=== PATIENT | female | born 1970 | race Caucasian/White ===

== ENCOUNTER 2022-10-29 11:32 | Emergency (ER) | payer OTHER ==
[2022-10-29 11:46] VITALS: TEMP 97.5
[2022-10-29] MEDS ORDERED: SODIUM CHLORIDE 0.9% 1,000 ML IV STA (11:59)
[2022-10-29] MEDS ORDERED: KETOROLAC 15 MG/ML 1 ML VIAL IVP STA (11:59)
--- NOTE | 2022-10-29 12:06 | ED ---
General Adult HPI - General Chief complaint: Upper Respiratory Infection Stated complaint: Dizziness, swollen glands Time Seen by Provider: 10/29/22 11:49 Source: patient, RN notes reviewed, old records reviewed Mode of arrival: ambulatory Limitations: no limitations - History of Present Illness Initial comments: Well appearing 52-year-old female presents to the emergency room with multiple complaints. Sent from urgent care for evaluation of headache, dizziness, sore throat, left lower abdominal pain and swollen axillary and cervical lymph nodes. Patient denies any fevers. States symptoms started 3 days ago. No sick contacts. No nausea vomiting or diarrhea. States has a history of migraine headaches, hypertension, diabetes, fibromyalgia. Surgical history of cholecystectomy and appendectomy. -: days(s) (3) Location: abdomen (left lower) Radiation: non-radiation Severity scale (1-10): 8 Consistency: constant Improves with: none Associated Symptoms: headaches, other (Sore throat, neck pain, dizziness) Treatments Prior to Arrival: other (Sent by urgent care) - Related Data Previous Rx's Medication Instructions Recorded Cephalexin [Keflex] 500 mg PO BID 7 Days #14 cap 10/29/22 Allergies Allergy/AdvReac Type Severity Reaction Status Date / Time trimethobenzamide Allergy Rash/Hives Verified 10/29/22 11:45 [From Tigan] vancomycin Allergy Rash/Hives Verified 10/29/22 11:46 Review of Systems ROS Statement: Those systems with pertinent positive or pertinent negative responses have been documented in the HPI. ROS Other: All systems not noted in ROS Statement are negative. Past Medical History Past Medical History: CVA/TIA, Diabetes Mellitus, Hyperlipidemia, Hypertension Additional Past Medical History / Comment(s): fibomyalgia History of Any Multi-Drug Resistant Organisms: None Reported Past Surgical History: Appendectomy, Cholecystectomy, Hysterectomy, Orthopedic Surgery Past Psychological History: No Psychological Hx Reported Smoking Status: Never smoker Past Alcohol Use History: None Reported Past Drug Use History: None Reported General Exam Limitations: no limitations General appearance: alert, in no apparent distress Head exam: Present: atraumatic Eye exam: Absent: scleral icterus, conjunctival injection, periorbital swelling Neck exam: Present: tenderness, full ROM. Absent: meningismus, lymphadenopathy, thyromegaly Respiratory exam: Present: normal lung sounds bilaterally. Absent: respiratory distress, wheezes, rales, rhonchi, stridor, chest wall tenderness, accessory muscle use Cardiovascular Exam: Present: regular rate, normal heart sounds GI/Abdominal exam: Present: soft, tenderness (Left lower quadrant). Absent: distended, rigid Extremities exam: Present: normal capillary refill. Absent: pedal edema Back exam: Absent: tenderness, CVA tenderness (R), CVA tenderness (L), rash noted Neurological exam: Present: alert, oriented X3 Psychiatric exam: Present: normal affect, normal mood Skin exam: Present: warm, dry, normal color. Absent: cyanosis, diaphoretic, pallor Course Vital Signs 10/29/22 11:40 Temperature 97.5 F L Pulse Rate 95 Respiratory 16 Rate Blood Pressure 136/83 O2 Sat by Pulse 100 Oximetry Medical Decision Making - Medical Decision Making Patient presents with multiple complaints. Symptoms started 3 days ago with headache, sore throat, dizziness and lower abdominal pain. She does have history of hypertension, diabetes, diverticulitis and fibromyalgia. Surgical history of hysterectomy, appendectomy and cholecystectomy. On arrival she is afebrile, vital signs are stable oxygen saturation 100%. CBC is unremarkable. Blood glucose levels 140, patient is diabetic. Urinalysis shows small blood and leukocyte esterase, no nitrates, occasional bacteria, 7 squamous cells. Patient is complaining of lower abdominal pain and therefore s he will be treated for UTI. CT abdomen and pelvis interpreted by me shows no evidence of free air. No evidence of obstruction. Radiologist's interpretation surgically absent gallbladder. No evidence of hydronephrosis or renal calculi. Surgically absent uterus. Postsurgical changes from appendectomy. Scattered diverticula without evidence of diverticulitis. Mild amount of stool throughout the colon with no evidence of bowel obstruction. No pneumoperitoneum. No acute abdominal process. Heterophile, influenza A and B, RSV and coronavirus all negative. This is likely a viral illness however she will also be treated for the urinary tract infection. She was directed to follow up with her primary care doctor within the next week. Return to the emergency room with any new or concerning symptoms. Patient is agreeable to this plan of care. Case discussed with Dr. Dubose. - Lab Data Result diagrams: 10/29/22 12:44 10/29/22 12:44 Lab Results 10/29/22 10/29/22 10/29/22 Range/Units 12:44 12:44 12:44 WBC 4.4 (3.8-10.6) k/uL RBC 4.35 (3.80-5.40) m/uL Hgb 12.8 (11.4-16.0) gm/dL Hct 37.7 (34.0-46.0) % MCV 86.7 (80.0-100.0) fL MCH 29.4 (25.0-35.0) pg MCHC 33.9 (31.0-37.0) g/dL RDW 12.6 (11.5-15.5) % Plt Count 214 (150-450) k/uL MPV 8.0 Neutrophils % 67 % Lymphocytes % 25 % Monocytes % 4 % Eosinophils % 2 % Basophils % 0 % Neutrophils # 2.9 (1.3-7.7) k/uL Lymphocytes # 1.1 (1.0-4.8) k/uL Monocytes # 0.2 (0-1.0) k/uL Eosinophils # 0.1 (0-0.7) k/uL Basophils # 0.0 (0-0.2) k/uL PT 9.9 (9.0-12.0) sec INR 0.9 (<1.2) APTT 26.8 (22.0-30.0) sec Sodium 140 (137-145) mmol/L Potassium 4.1 (3.5-5.1) mmol/L Chloride 109 H (98-107) mmol/L Carbon Dioxide 23 (22-30) mmol/L Anion Gap 8 mmol/L BUN 8 (7-17) mg/dL Creatinine 0.62 (0.52-1.04) mg/dL Est GFR (CKD-EPI)AfAm >90 (>60 ml/min/1.73 sqM) Est GFR (CKD-EPI)NonAf >90 (>60 ml/min/1.73 sqM) Glucose 140 H (74-99) mg/dL Plasma Lactic Acid Rivera (0.7-2.0) mmol/L Calcium 8.5 (8.4-10.2) mg/dL Total Bilirubin 0.4 (0.2-1.3) mg/dL AST 22 (14-36) U/L ALT 29 (4-34) U/L Alkaline Phosphatase 118 (38-126) U/L Total Protein 5.8 L (6.3-8.2) g/dL Albumin 3.6 (3.5-5.0) g/dL Amylase <30 L (30-110) U/L Lipase 83 (23-300) U/L Urine Color Urine Appearance (Clear) Urine pH (5.0-8.0) Ur Specific [place] (1.001-1.035) Urine Protein (Negative) Urine Glucose (UA) (Negative) Urine Ketones (Negative) Urine Blood (Negative) Urine Nitrite (Negative) Urine Bilirubin (Negative) Urine Urobilinogen (<2.0) mg/dL Ur Leukocyte Esterase (Negative) Urine RBC (0-5) /hpf Urine WBC (0-5) /hpf Ur Squamous Epith Cells (0-4) /hpf Amorphous Sediment (None) /hpf Urine Bacteria (None) /hpf Urine Mucus (None) /hpf Heterophile Antibody (Negative) Influenza Type A (PCR) (Not Detectd) Influenza Type B (PCR) (Not Detectd) RSV (PCR) (Not Detectd) SARS-CoV-2 (PCR) (Not Detectd) 10/29/22 10/29/22 10/29/22 Range/Units 12:44 12:44 12:44 WBC (3.8-10.6) k/uL RBC (3.80-5.40) m/uL Hgb (11.4-16.0) gm/dL Hct (34.0-46.0) % MCV (80.0-100.0) fL MCH (25.0-35.0) pg MCHC (31.0-37.0) g/dL RDW (11.5-15.5) % Plt Count (150-450) k/uL MPV Neutrophils % % Lymphocytes % % Monocytes % % Eosinophils % % Basophils % % Neutrophils # (1.3-7.7) k/uL Lymphocytes # (1.0-4.8) k/uL Monocytes # (0-1.0) k/uL Eosinophils # (0-0.7) k/uL Basophils # (0-0.2) k/uL PT (9.0-12.0) sec INR (<1.2) APTT (22.0-30.0) sec Sodium (137-145) mmol/L Potassium (3.5-5.1) mmol/L Chloride (98-107) mmol/L Carbon Dioxide (22-30) mmol/L Anion Gap mmol/L BUN (7-17) mg/dL Creatinine (0.52-1.04) mg/dL Est GFR (CKD-EPI)AfAm (>60 ml/min/1.73 sqM) Est GFR (CKD-EPI)NonAf (>60 ml/min/1.73 sqM) Glucose (74-99) mg/dL Plasma Lactic Acid Rivera 1.0 (0.7-2.0) mmol/L Calcium (8.4-10.2) mg/dL Total Bilirubin (0.2-1.3) mg/dL AST (14-36) U/L ALT (4-34) U/L Alkaline Phosphatase (38-126) U/L Total Protein (6.3-8.2) g/dL Albumin (3.5-5.0) g/dL Amylase (30-110) U/L Lipase (23-300) U/L Urine Color Yellow Urine Appearance Cloudy H (Clear) Urine pH 7.0 (5.0-8.0) Ur Specific [place] 1.022 (1.001-1.035) Urine Protein Trace H (Negative) Urine Glucose (UA) Negative (Negative) Urine Ketones Negative (Negative) Urine Blood Small H (Negative) Urine Nitrite Negative (Negative) Urine Bilirubin Negative (Negative) Urine Urobilinogen <2.0 (<2.0) mg/dL Ur Leukocyte Esterase Moderate H (Negative) Urine RBC 3 (0-5) /hpf Urine WBC 30 H (0-5) /hpf Ur Squamous Epith Cells 7 H (0-4) /hpf Amorphous Sediment Few H (None) /hpf Urine Bacteria Occasional H (None) /hpf Urine Mucus Rare H (None) /hpf Heterophile Antibody Negative (Negative) Influenza Type A (PCR) (Not Detectd) Influenza Type B (PCR) (Not Detectd) RSV (PCR) (Not Detectd) SARS-CoV-2 (PCR) (Not Detectd) 10/29/22 Range/Units 12:44 WBC (3.8-10.6) k/uL RBC (3.80-5.40) m/uL Hgb (11.4-16.0) gm/dL Hct (34.0-46.0) % MCV (80.0-100.0) fL MCH (25.0-35.0) pg MCHC (31.0-37.0) g/dL RDW (11.5-15.5) % Plt Count (150-450) k/uL MPV Neutrophils % % Lymphocytes % % Monocytes % % Eosinophils % % Basophils % % Neutrophils # (1.3-7.7) k/uL Lymphocytes # (1.0-4.8) k/uL Monocytes # (0-1.0) k/uL Eosinophils # (0-0.7) k/uL Basophils # (0-0.2) k/uL PT (9.0-12.0) sec INR (<1.2) APTT (22.0-30.0) sec Sodium (137-145) mmol/L Potassium (3.5-5.1) mmol/L Chloride (98-107) mmol/L Carbon Dioxide (22-30) mmol/L Anion Gap mmol/L BUN (7-17) mg/dL Creatinine (0.52-1.04) mg/dL Est GFR (CKD-EPI)AfAm (>60 ml/min/1.73 sqM) Est GFR (CKD-EPI)NonAf (>60 ml/min/1.73 sqM) Glucose (74-99) mg/dL Plasma Lactic Acid Rivera (0.7-2.0) mmol/L Calcium (8.4-10.2) mg/dL Total Bilirubin (0.2-1.3) mg/dL AST (14-36) U/L ALT (4-34) U/L Alkaline Phosphatase (38-126) U/L Total Protein (6.3-8.2) g/dL Albumin (3.5-5.0) g/dL Amylase (30-110) U/L Lipase (23-300) U/L Urine Color Urine Appearance (Clear) Urine pH (5.0-8.0) Ur Specific [place] (1.001-1.035) Urine Protein (Negative) Urine Glucose (UA) (Negative) Urine Ketones (Negative) Urine Blood (Negative) Urine Nitrite (Negative) Urine Bilirubin (Negative) Urine Urobilinogen (<2.0) mg/dL Ur Leukocyte Esterase (Negative) Urine RBC (0-5) /hpf Urine WBC (0-5) /hpf Ur Squamous Epith Cells (0-4) /hpf Amorphous Sediment (None) /hpf Urine Bacteria (None) /hpf Urine Mucus (None) /hpf Heterophile Antibody (Negative) Influenza Type A (PCR) Not Detected (Not Detectd) Influenza Type B (PCR) Not Detected (Not Detectd) RSV (PCR) Not Detected (Not Detectd) SARS-CoV-2 (PCR) Not Detected (Not Detectd) Disposition Clinical Impression: UTI (urinary tract infection) Disposition: HOME SELF-CARE Condition: Good Instructions (If sedation given, give patient instructions): Urinary Tract Infection in Women (ED) Additional Instructions: Increase your fluid intake. Take antibiotics as prescribed for urinary tract infection. Take vitamin C, vitamin D and zinc to help improve your immune health. Follow-up with the primary care doctor within the next week. Return to the emergency room with any new or concerning symptoms. Prescriptions: Cephalexin [Keflex] 500 mg PO BID 7 Days #14 cap Is patient prescribed a controlled substance at d/c from ED?: No Referrals: Brayden Valdovinos DO [Primary Care Provider] - 1-2 days Time of Disposition: 14:00
[2022-10-29 13:08] LABS: Basophils % (A) 0 %; Eosinophils # (A) 0.1 k/uL (0-0.7); Eosinophils % (A) 2 %; HCT 37.7 % (34.0-46.0); HGB 12.8 gm/dL (11.4-16.0); Lymphocytes # (A) 1.1 k/uL (1.0-4.8); Lymphocytes % (A) 25 %; MCH 29.4 pg (25.0-35.0); MCHC 33.9 g/dL (31.0-37.0); MCV 86.7 fL (80.0-100.0); Monocytes # (A) 0.2 k/uL (0-1.0); Monocytes % (A) 4 %; Neutrophils # (A) 2.9 k/uL (1.3-7.7); Neutrophils % (A) 67 %; Platelet Count 214 k/uL (150-450); RBC 4.35 m/uL (3.80-5.40); RDW 12.6 % (11.5-15.5); WBC 4.4 k/uL (3.8-10.6)
[2022-10-29 13:18] LABS: Amorphous Sediment,Urine Few /hpf; Appearance,Urine Cloudy (Clear); Bacteria,Urine Occasional /hpf; Bilirubin,Urine Negative (Negative); Blood,Urine Small (Negative); Color,Urine Yellow; Glucose,Urine (UA) Negative (Negative); Ketones,Urine Negative (Negative); Leukocyte Esterase,Urine Moderate (Negative); Mucus,Urine Rare /hpf; Nitrite,Urine Negative (Negative); Protein,Urine Trace (Negative); RBC,Urine 3 /hpf (0-5); Specific Gravity,Urine 1.022 (1.001-1.035); Squamous Epithelial Cell,Urine 7 /hpf (0-4); Urobilinogen,Urine <2.0 mg/dL (<2.0); WBC,Urine 30 /hpf (0-5)
[2022-10-29 13:19] LABS: INR 0.9 (<1.2); Partial Thromboplastin Time 26.8 sec (22.0-30.0); Prothrombin Time 9.9 sec (9.0-12.0)
[2022-10-29 13:20] LABS: ALT 29 U/L (4-34); AST 22 U/L (14-36); African American GFR (CKD) >90 (>60 ml/min/1.73 sqM); Albumin 3.6 g/dL (3.5-5.0); Alkaline Phosphatase 118 U/L (38-126); Amylase <30 U/L (30-110); Anion Gap 8 mmol/L; Blood Urea Nitrogen 8 mg/dL (7-17); Calcium 8.5 mg/dL (8.4-10.2); Carbon Dioxide 23 mmol/L (22-30); Chloride 109 mmol/L (98-107); Glucose 140 mg/dL (74-99); Lipase 83 U/L (23-300); Non-African American GFR(CKD) >90 (>60 ml/min/1.73 sqM); Potassium 4.1 mmol/L (3.5-5.1); Sodium 140 mmol/L (137-145); Total Bilirubin 0.4 mg/dL (0.2-1.3); Total Protein 5.8 g/dL (6.3-8.2)
--- NOTE | 2022-10-29 13:40 | CT ---
EXAMINATION TYPE: CT abdomen pelvis wo con CT DLP: 1278.4 mGycm, Automated exposure control for dose reduction was used. DATE OF EXAM: 10/29/2022 1:06 PM COMPARISON: None. CLINICAL INDICATION:Female, 52 years old with history of abdominal pain; Abdominal pain TECHNIQUE: Standard CT of the abdomen and pelvis without IV or oral contrast. Lack of IV or oral co ntrast limits evaluation of solid and hollow organ viscera. Coronal and sagittal reformats were perfo rmed. FINDINGS: LOWER CHEST: Unremarkable ABDOMEN LIVER: Unremarkable noncontrast appearance. GALLBLADDER AND BILE DUCTS: The gallbladder is surgically absent. No biliary duct dilatation. PANCREAS: Unremarkable noncontrast appearance. SPLEEN: Unremarkable noncontrast appearance. ADRENAL GLANDS: Unremarkable noncontrast appearance. KIDNEYS AND URETERS: No evidence of hydronephrosis or renal calculus. No ureteral calculi. Nonspecifi c bilateral perinephric fashioning. PELVIS BLADDER: Underdistended, limiting evaluation. REPRODUCTIVE: The uterus is surgically absent. ABDOMEN & PELVIS STOMACH AND BOWEL: Stomach and duodenum are unremarkable. Postsurgical changes from appendectomy. A f ew scattered colonic diverticula without evidence for acute diverticulitis. Mild amount of stool thro ughout the colon. No evidence of bowel obstruction. PERITONEUM: No evidence of pneumoperitoneum or free fluid. VASCULATURE: Moderate atherosclerotic calcifications are present throughout the abdominal aorta and i ts branches. No evidence of aortic aneurysm. MUSCULOSKELETAL: No acute osseous abnormalities. Incidental benign vertebral hemangioma within the L2 vertebral body. Sclerotic focus within the left ischial tuberosity likely representing a benign bone island. LYMPH NODES: No gross evidence for lymphadenopathy. SOFT TISSUE/ABDOMINAL WALL: Unremarkable IMPRESSION: 1. No acute abdominal/pelvic process. 2. Few scattered colonic diverticula without evidence for acute diverticulitis.
[2022-10-29 14:22] VITALS: BP 132/78; PULSE 80; RESP 18
== END 2022-10-29 14:22 | disposition home or self-care (01) ==
LOC: EC 11:32
DX: N39.0 Urinary tract infection, site not specified (principal); K57.30 Diverticulosis of large intestine without perforation or abscess without bleeding; G45.9 Transient cerebral ischemic attack, unspecified; E11.9 Type 2 diabetes mellitus without complications; I10 Essential (primary) hypertension; Z88.1 Allergy status to other antibiotic agents; Z88.8 Allergy status to other drugs, medicaments and biological substances; Z20.822 Contact with and (suspected) exposure to COVID-19; Z90.49 Acquired absence of other specified parts of digestive tract
CPT/HCPCS: 36415; 80053; 82150; 83605; 83690; 85025; 85610; 85730; 86308; 81001; 87086; 87636; 74176; 99284; 96374; 96361; J1885

== ENCOUNTER 2022-11-15 15:47 | Observation (INO) | payer MEDICARE, OTHER ==
[~2022-11-15 15:47] MED LIST: DOBUTamine DRIP for NUC MED 500 MG/250 ML BAG IV ONE
[2022-11-15] MEDS ORDERED: ASPIRIN 81 MG PO STA (16:40)
--- NOTE | 2022-11-15 16:48 | ED ---
General Adult HPI - General Chief complaint: Chest Pain Stated complaint: Chest Pain Time Seen by Provider: 11/15/22 16:18 Source: patient Mode of arrival: wheelchair Limitations: no limitations - History of Present Illness Initial comments: Dictation was produced using [employer] dictation software. please excuse any grammatical, word or spelling errors. Chief Complaint: 52-year-old female presents to the ER for chest pain History of Present Illness: Is a 52-year-old female she has past medical history of stroke, diabetes dyslipidemia hypertension. She states that for the last 2-3 days she has had a pressure in her chest. Feels like an elephant sitting on chest symptoms radiate stat her left upper extremity. Patient denies any coronary artery disease or cardiac issues. States that her pain is constant now. This is associated with nausea but no diaphoresis. Does complain of associated shortness of breath. The ROS documented in this emergency department record has been reviewed and confirmed by me. Those systems with pertinent positive or negative responses have been documented in the HPI. All other systems are other negative and/or noncontributory. PHYSICAL EXAM: General Impression: Alert and oriented x3, not in acute distress HEENT: Normocephalic atraumatic, extra-ocular movements intact, pupils equal and reactive to light bilaterally, mucous membranes moist. Cardiovascular: Heart regular rate and rhythm Chest: Able to complete full sentences, no retractions, no tachypnea Abdomen: abdomen soft, non-tender, non-distended, no organomegaly Musculoskeletal: Pulses present and equal in all extremities, no peripheral edema Motor: no focal deficits noted Neurological: CN II-XII grossly intact, no focal motor or sensory deficits noted Skin: Intact with no visualized rashes Psych: Normal affect and mood ED course: 52-year-old well-appearing female presents emergency department for chest symptoms concerning for acute coronary syndrome. Signs upon arrival are within acceptable limits. EKG does not show any signs of ischemia or infarction. Nursing notes and chart review was performed EKG interpreted by me: Ventricular rate 56, sinus rhythm,. 137, QRS 90, QTC 425. No FL prolongation, no QTC prolongation, no ST or T-wave changes noted. Overall, this EKG is unremarkable CBC unremarkable. Coag panel is negative. Metabolic panel shows glucose of 45. Patient is given oral glucose. Patient takes insulin. She states that she has not really had a meal is likely the cause of her hypoglycemia. Chest x-ray is unremarkable. Troponin is negative. Patient reevaluated at 6:05 PM found to be stable medical condition. Patient will be admitted to observation with consultation cardiology, cardiac monitoring. Patient be admitted to [facility]. - Related Data Home Medications Medication Instructions Recorded Confirmed ARIPiprazole [Abilify] 10 mg PO DAILY 11/15/22 11/15/22 Albuterol Sulfate [Albuterol 2 puff PO RT-Q6H PRN 11/15/22 11/15/22 Sulfate Hfa] Amitriptyline HCl [Elavil] 25 mg PO HS 11/15/22 11/15/22 Apixaban [Eliquis] 5 mg PO BID 11/15/22 11/15/22 Aspirin EC [Ecotrin Low Dose] 81 mg PO DAILY 11/15/22 11/15/22 Atorvastatin Calcium [Lipitor] 40 mg PO DAILY 11/15/22 11/15/22 DULoxetine HCL [Cymbalta] 30 mg PO HS 11/15/22 11/15/22 DULoxetine HCL [Cymbalta] 60 mg PO DAILY 11/15/22 11/15/22 Dulaglutide [Trulicity] 3 mg SQ TH 11/15/22 11/15/22 Erenumab-Aooe [Aimovig 70 mg SQ QMONTHLY 11/15/22 11/15/22 Autoinjector] Insulin Aspart [NovoLOG Flexpen] 17 units SQ AC-TID 11/15/22 11/15/22 Insulin Aspart [NovoLOG Flexpen] See Protocol SQ AC-TID 11/15/22 11/15/22 Insulin Detemir [Levemir Flextouch 40 units SQ HS 11/15/22 11/15/22 Pen] Isosorbide Mononitrate ER [Imdur] 30 mg PO DAILY 11/15/22 11/15/22 Magnesium Oxide 400 mg PO DAILY 11/15/22 11/15/22 Montelukast Sodium [Singulair] 10 mg PO HS 11/15/22 11/15/22 Multivitamins, Thera [Multivitamin 1 tab PO DAILY 11/15/22 11/15/22 (formulary)] Nitroglycerin Sl Tabs [Nitrostat] 0.4 mg SUBLINGUAL Q5M PRN 11/15/22 11/15/22 Omeprazole 40 mg PO BID 11/15/22 11/15/22 Ondansetron Odt [Zofran Odt] 4 mg PO BID PRN 11/15/22 11/15/22 Ranolazine [Ranolazine ER] 500 mg PO BID 11/15/22 11/15/22 Topiramate [Topamax] 100 mg PO BID 11/15/22 11/15/22 clonazePAM [KlonoPIN] 1 mg PO BID 11/15/22 11/15/22 dilTIAZem HCL [dilTIAZem [id number] 240 mg PO DAILY 11/15/22 11/15/22 ER (CD)] methocarbamoL [Robaxin] 500 mg PO TID PRN 11/15/22 11/15/22 Allergies Allergy/AdvReac Type Severity Reaction Status Date / Time trimethobenzamide Allergy Rash/Hives Verified 11/15/22 16:53 [From Tigkarena] vancomycin Allergy Rash/Hives Verified 11/15/22 16:53 Review of Systems ROS Statement: Those systems with pertinent positive or pertinent negative responses have been documented in the HPI. ROS Other: All systems not noted in ROS Statement are negative. Past Medical History Past Medical History: CVA/TIA, Diabetes Mellitus, Hyperlipidemia, Hypertension Additional Past Medical History / Comment(s): fibomyalgia History of Any Multi-Drug Resistant Organisms: None Reported Past Surgical History: Appendectomy, Cholecystectomy, Hysterectomy, Orthopedic Surgery Past Psychological History: No Psychological Hx Reported Smoking Status: Never smoker Past Alcohol Use History: None Reported Past Drug Use History: None Reported General Exam Limitations: no limitations Course Vital Signs 11/15/22 15:56 Temperature 97.8 F Pulse Rate 95 Respiratory 18 Rate Blood Pressure 123/81 O2 Sat by Pulse 99 Oximetry Medical Decision Making - Lab Data Result diagrams: 11/15/22 16:42 11/15/22 16:42 Lab Results 11/15/22 11/15/22 11/15/22 Range/Units 16:42 16:42 16:42 WBC 4.9 (3.8-10.6) k/uL RBC 4.71 (3.80-5.40) m/uL Hgb 14.0 (11.4-16.0) gm/dL Hct 41.6 (34.0-46.0) % MCV 88.4 (80.0-100.0) fL MCH 29.7 (25.0-35.0) pg MCHC 33.6 (31.0-37.0) g/dL RDW 12.8 (11.5-15.5) % Plt Count 211 (150-450) k/uL MPV 8.2 Neutrophils % 58 % Lymphocytes % 32 % Monocytes % 6 % Eosinophils % 2 % Basophils % 1 % Neutrophils # 2.8 (1.3-7.7) k/uL Lymphocytes # 1.6 (1.0-4.8) k/uL Monocytes # 0.3 (0-1.0) k/uL Eosinophils # 0.1 (0-0.7) k/uL Basophils # 0.0 (0-0.2) k/uL PT 10.0 (9.0-12.0) sec INR 0.9 (<1.2) APTT 20.1 L (22.0-30.0) sec Sodium 143 (137-145) mmol/L Potassium 4.2 (3.5-5.1) mmol/L Chloride 109 H (98-107) mmol/L Carbon Dioxide 27 (22-30) mmol/L Anion Gap 7 mmol/L BUN 15 (7-17) mg/dL Creatinine 0.65 (0.52-1.04) mg/dL Est GFR (CKD-EPI)AfAm >90 (>60 ml/min/1.73 sqM) Est GFR (CKD-EPI)NonAf >90 (>60 ml/min/1.73 sqM) Glucose 45 L* (74-99) mg/dL POC Glucose (mg/dL) (70-110) mg/dL POC Glu Director [employer] ID Calcium 9.4 (8.4-10.2) mg/dL Magnesium 1.9 (1.6-2.3) mg/dL Total Bilirubin 0.3 (0.2-1.3) mg/dL AST 28 (14-36) U/L ALT 28 (4-34) U/L Alkaline Phosphatase 110 (38-126) U/L Troponin I (0.000-0.034) ng/mL Total Protein 6.6 (6.3-8.2) g/dL Albumin 4.1 (3.5-5.0) g/dL 11/15/22 11/15/22 Range/Units 16:42 16:54 WBC (3.8-10.6) k/uL RBC (3.80-5.40) m/uL Hgb (11.4-16.0) gm/dL Hct (34.0-46.0) % MCV (80.0-100.0) fL MCH (25.0-35.0) pg MCHC (31.0-37.0) g/dL RDW (11.5-15.5) % Plt Count (150-450) k/uL MPV Neutrophils % % Lymphocytes % % Monocytes % % Eosinophils % % Basophils % % Neutrophils # (1.3-7.7) k/uL Lymphocytes # (1.0-4.8) k/uL Monocytes # (0-1.0) k/uL Eosinophils # (0-0.7) k/uL Basophils # (0-0.2) k/uL PT (9.0-12.0) sec INR (<1.2) APTT (22.0-30.0) sec Sodium (137-145) mmol/L Potassium (3.5-5.1) mmol/L Chloride (98-107) mmol/L Carbon Dioxide (22-30) mmol/L Anion Gap mmol/L BUN (7-17) mg/dL Creatinine (0.52-1.04) mg/dL Est GFR (CKD-EPI)AfAm (>60 ml/min/1.73 sqM) Est GFR (CKD-EPI)NonAf (>60 ml/min/1.73 sqM) Glucose (74-99) mg/dL POC Glucose (mg/dL) 51 L (70-110) mg/dL POC Glu Director [employer] ID Wagester, Hailey Calcium (8.4-10.2) mg/dL Magnesium (1.6-2.3) mg/dL Total Bilirubin (0.2-1.3) mg/dL AST (14-36) U/L ALT (4-34) U/L Alkaline Phosphatase (38-126) U/L Troponin I <0.012 (0.000-0.034) ng/mL Total Protein (6.3-8.2) g/dL Albumin (3.5-5.0) g/dL Disposition Clinical Impression: Chest pain Disposition: ADMITTED IP TO THIS HOSP Condition: Fair Referrals: Brayden Valdovinos DO [Primary Care Provider] - 1-2 days Decision Time: 18:05
[2022-11-15 16:50] LABS: Basophils % (A) 1 %; Eosinophils # (A) 0.1 k/uL (0-0.7); Eosinophils % (A) 2 %; HCT 41.6 % (34.0-46.0); Lymphocytes # (A) 1.6 k/uL (1.0-4.8); Lymphocytes % (A) 32 %; MCH 29.7 pg (25.0-35.0); MCHC 33.6 g/dL (31.0-37.0); MCV 88.4 fL (80.0-100.0); Mean Platelet Volume 8.2; Monocytes # (A) 0.3 k/uL (0-1.0); Monocytes % (A) 6 %; Neutrophils # (A) 2.8 k/uL (1.3-7.7); Neutrophils % (A) 58 %; Platelet Count 211 k/uL (150-450); RBC 4.71 m/uL (3.80-5.40); RDW 12.8 % (11.5-15.5); WBC 4.9 k/uL (3.8-10.6)
[2022-11-15 16:55] LABS: Glucose,Whole Blood 51 mg/dL (70-110)
[2022-11-15 17:01] LABS: ALT 28 U/L (4-34); AST 28 U/L (14-36); African American GFR (CKD) >90 (>60 ml/min/1.73 sqM); Albumin 4.1 g/dL (3.5-5.0); Alkaline Phosphatase 110 U/L (38-126); Anion Gap 7 mmol/L; Blood Urea Nitrogen 15 mg/dL (7-17); Calcium 9.4 mg/dL (8.4-10.2); Carbon Dioxide 27 mmol/L (22-30); Chloride 109 mmol/L (98-107); Magnesium 1.9 mg/dL (1.6-2.3); Non-African American GFR(CKD) >90 (>60 ml/min/1.73 sqM); Potassium 4.2 mmol/L (3.5-5.1); Sodium 143 mmol/L (137-145); Total Bilirubin 0.3 mg/dL (0.2-1.3); Total Protein 6.6 g/dL (6.3-8.2)
[2022-11-15 17:07] LABS: Glucose 45 mg/dL (74-99)
[2022-11-15 17:33] LABS: INR 0.9 (<1.2); Partial Thromboplastin Time 20.1 sec (22.0-30.0)
--- NOTE | 2022-11-15 17:42 | XR ---
EXAMINATION TYPE: XR chest 2V DATE OF EXAM: 11/15/2022 5:03 PM COMPARISON: Chest radiographs from 07/04/2013 TECHNIQUE: XR chest 2V Frontal and lateral views of the chest. CLINICAL INDICATION:Female, 52 years old with history of Chest Pain; FINDINGS: Lungs/Pleura: There is no evidence of pleural effusion, focal consolidation, or pneumothorax. Pulmonary vascularity: Unremarkable. Heart/mediastinum: Cardiomediastinal silhouette is unremarkable. Musculoskeletal: No acute osseous pathology. IMPRESSION: No acute cardiopulmonary disease/process.
[2022-11-15] MEDS ORDERED: NITROGLYCERIN SL TABS 0.4 MG TAB SUBLINGUAL PRN (18:01)
[2022-11-15 18:52] LABS: Glucose,Whole Blood 45 mg/dL (70-110)
[2022-11-15 18:52] LABS: Glucose,Whole Blood 46 mg/dL (70-110)
[2022-11-15 19:29] LABS: Glucose,Whole Blood 77 mg/dL (70-110)
[2022-11-15] MEDS: ONDANSETRON ODT 4 MG TAB PO PRN (22:24)
[2022-11-15] MEDS: MORPHINE SULFATE 4 MG/ML SYRINGE IVP PRN (22:24)
[2022-11-15 22:56] LABS: Glucose,Whole Blood 194 mg/dL (70-110)
[2022-11-15] MEDS: ATORVASTATIN 40 MG TAB PO SCH (22:56)
[2022-11-15] MEDS: clonazePAM 1 MG TAB PO SCH (22:56)
[2022-11-16 00:32] LABS: Glucose,Whole Blood 209 mg/dL (70-110)
[2022-11-16] MEDS: MORPHINE SULFATE 4 MG/ML SYRINGE IVP PRN ×3 (04:12→20:33)
[2022-11-16 06:06] LABS: Glucose,Whole Blood 191 mg/dL (70-110)
[2022-11-16] MEDS: INSULIN ASPART (NovoLOG) 100 UNIT/ML VIAL SQ SCH ×4 (06:23→21:09)
[2022-11-16] MEDS ORDERED: DOBUTamine DRIP for NUC MED 500 MG in DEXTROSE/WATER 1 250ML.BAG IV PRN (08:00)
[2022-11-16] MEDS ORDERED: ASPIRIN 81 MG PO SCH (09:00)
[2022-11-16] MEDS ORDERED: ASPIRIN 325 MG TAB PO SCH (09:00)
--- NOTE | 2022-11-16 09:47 | P.CRDCN ---
History of Present Illness Consult date: 11/16/22 Consult reason: chest pain History of present illness: HISTORY OF PRESENT ILLNESS This is a 52-year-old female with reported history of atrial fibrillation, CVA, hypertension, hyperlipidemia, diabetes mellitus type 2, asthma. Patient followed with Dr. Ramos at [facility] for cardiology but recently moved [place]. She has not seen her cardiology for a long time. Patient presents due to chest pain that radiated up to her neck and arm which she has had for the past 3 days at least once every day more frequently. This is not related to exertion and seemed to come on when she is sitting. She has some chronic shortness of breath especially with activity. She also complains of some heart racing. She complains of chronic edema, orthopnea and she utilizes 2 pillows to sleep. Patient complains of heartburn which she has never had before. She denies history of smoking cigarettes. She has recently started smoking marijua na to treat her back pain. EKG revealed sinus rhythm Chest x-ray shows no acute findings Troponin negative 3. CBC within normal limits. Glucose 45. BUN 15, creatinine 0.65. Potassium 4.2. Magnesium 1.9. Liver function tests normal. Home cardiac medications include eliquis 5 mg twice daily, aspirin 81 mg daily, atorvastatin 40 mg daily, Cardizem CD 240 mg daily, Imdur 30 mg daily, Ranexa 50 0 mg twice daily in 2012, patient underwent cardiac catheterization as she presented to the hospital with chest pain relieved with nitroglycerin. Cardiac catheterization was performed by Dr. BROOKE Barfield and revealed normal coronary arteries, normal left ventricular function with vasospasm in the LAD. Recommendations were for long- term nitroglycerin and amlodipine. REVIEW OF SYSTEMS At the time of my evaluation Constitutional: No fever, no chills. No weakness, fatigue or lethargy. EENT: No headache. No dizziness. Lungs: Reports chronic shortness of breath, cough, no sputum production. Repo rts wheezing. Cardiovascular: No chest pain, reports chronic lower extremity edema. No palpitations. Reports paroxysmal nocturnal dyspnea. Reports orthopnea. No lightheadedness or dizziness. No syncopal episodes. Abdominal: No abdominal pain. No nausea, vomiting. No diarrhea. No constipation. No bloody or tarry stools. No loss of appetite. Genitourinary: No dysuria.. No urinary retention. Musculoskeletal: No myalgias. No muscle weakness, no gait dysfunction, no frequent falls. No back pain. No neck pain. Integumentary: No wounds, no lesions. No rash or pruritus. No unusual brui sing. Neurologic: No aphasia. No facial droop. No change in mentation. No head injury. No headache. No paralysis. No paresthesia. Psychiatric: No depression. No anxiety. Endocrine: No abnormal blood sugars. PHYSICAL EXAMINATION Gen: This is a 52-year-old obese female. She is resting in bed and appears to be comfortable. VS: reviewed, heart rate in the 70s and 80s, blood pressure 127/79, pulse ox 97% on room air. quality assurance monitor body sinus rhythm HEENT: Head is atraumatic, normocephalic. Pupils equal, round. Sclerae is anicteric. NECK: Supple. No JVD. No lymphadenopathy. No thyromegaly. LUNGS: Few scattered expiratory wheeze. No intercostal retractions. HEART: Regular rate and rhythm. No murmur. ABDOMEN: Soft. Bowel sounds are present. No masses. No tenderness. EXTREMITIES: No pedal edema. No calf tenderness. NEUROLOGICAL: Patient is awake, alert and oriented x3. Cranial nerves 2 through 12 are grossly intact. ASSESSMENT Chest pain Paroxysmal atrial fibrillation CVA in 2020 Hypertension Hyperlipidemia Diabetes mellitus type 2 Asthma PLAN Obtain dobutamine stress echo today Obtain 2-D echocardiogram and Doppler study to assess cardiac structure and function Resume patient on home cardiac medications except hold Cardizem this morning prior to stress test. Cardizem may be resumed following testing. Further recommendations to follow based upon clinical course Thank you kindly for this consultation. Nurse practitioner note has been reviewed, I agree with documented findings and plan of care. Patient was seen and examined. Past Medical History Past Medical History: CVA/TIA, Diabetes Mellitus, Hyperlipidemia, Hypertension Additional Past Medical History / Comment(s): fibomyalgia History of Any Multi-Drug Resistant Organisms: None Reported Past Surgical History: Appendectomy, Cholecystectomy, Hysterectomy, Orthopedic Surgery Past Psychological History: No Psychological Hx Reported Smoking Status: Never smoker Past Alcohol Use History: Occasional Past Drug Use History: Marijuana Medications and Allergies Home Medications Medication Instructions Recorded Confirmed Type ARIPiprazole [Abilify] 10 mg PO DAILY 11/15/22 11/15/22 History Albuterol Sulfate [Albuterol 2 puff PO RT-Q6H PRN 11/15/22 11/15/22 History Sulfate Hfa] Amitriptyline HCl [Elavil] 25 mg PO HS 11/15/22 11/15/22 History Apixaban [Eliquis] 5 mg PO BID 11/15/22 11/15/22 History Aspirin EC [Ecotrin Low Dose] 81 mg PO DAILY 11/15/22 11/15/22 History Atorvastatin Calcium [Lipitor] 40 mg PO DAILY 11/15/22 11/15/22 History DULoxetine HCL [Cymbalta] 30 mg PO HS 11/15/22 11/15/22 History DULoxetine HCL [Cymbalta] 60 mg PO DAILY 11/15/22 11/15/22 History Dulaglutide [Trulicity] 3 mg SQ TH 11/15/22 11/15/22 History Erenumab-Aooe [Aimovig 70 mg SQ QMONTHLY 11/15/22 11/15/22 History Autoinjector] Insulin Aspart [NovoLOG Flexpen] 17 units SQ AC-TID 11/15/22 11/15/22 History Insulin Aspart [NovoLOG Flexpen] See Protocol SQ AC-TID 11/15/22 11/15/22 History Insulin Detemir [Levemir Flextouch 40 units SQ HS 11/15/22 11/15/22 History Pen] Isosorbide Mononitrate ER [Imdur] 30 mg PO DAILY 11/15/22 11/15/22 History Magnesium Oxide 400 mg PO DAILY 11/15/22 11/15/22 History Montelukast Sodium [Singulair] 10 mg PO HS 11/15/22 11/15/22 History Multivitamins, Thera [Multivitamin 1 tab PO DAILY 11/15/22 11/15/22 History (formulary)] Nitroglycerin Sl Tabs [Nitrostat] 0.4 mg SUBLINGUAL Q5M PRN 11/15/22 11/15/22 History Omeprazole 40 mg PO BID 11/15/22 11/15/22 History Ondansetron Odt [Zofran Odt] 4 mg PO BID PRN 11/15/22 11/15/22 History Ranolazine [Ranolazine ER] 500 mg PO BID 11/15/22 11/15/22 History Topiramate [Topamax] 100 mg PO BID 11/15/22 11/15/22 History clonazePAM [KlonoPIN] 1 mg PO BID 11/15/22 11/15/22 History dilTIAZem HCL [dilTIAZem GLD97Pl 240 mg PO DAILY 11/15/22 11/15/22 History ER (CD)] methocarbamoL [Robaxin] 500 mg PO TID PRN 11/15/22 11/15/22 History Allergies Allergy/AdvReac Type Severity Reaction Status Date / Time trimethobenzamide Allergy Rash/Hives Verified 11/15/22 16:53 [From Tigan] vancomycin Allergy Rash/Hives Verified 11/15/22 16:53 Physical Exam Vitals: Vital Signs Temp Pulse Pulse Resp BP BP Pulse Ox 11/16/22 03:54 97.6 F 84 16 125/73 96 11/15/22 20:00 75 16 11/15/22 19:56 97.8 F 75 16 123/77 98 11/15/22 18:53 81 18 147/80 96 11/15/22 15:56 97.8 F 95 18 123/81 99 Intake and Output 11/15/22 11/16/22 11/16/22 22:59 06:59 14:59 Other: # Voids 2 3 Weight 106.594 kg Results 11/15/22 16:42 11/15/22 16:42 Cardiac Enzymes 11/15/22 11/15/22 11/15/22 Range/Units 16:42 16:42 18:22 AST 28 (14-36) U/L Troponin I <0.012 <0.012 (0.000-0.034) ng/mL 11/15/22 Range/Units 20:45 AST (14-36) U/L Troponin I <0.012 (0.000-0.034) ng/mL Coagulation 11/15/22 Range/Units 16:42 PT 10.0 (9.0-12.0) sec APTT 20.1 L (22.0-30.0) sec CBC 11/15/22 Range/Units 16:42 WBC 4.9 (3.8-10.6) k/uL RBC 4.71 (3.80-5.40) m/uL Hgb 14.0 (11.4-16.0) gm/dL Hct 41.6 (34.0-46.0) % Plt Count 211 (150-450) k/uL Comprehensive Metabolic Panel 11/15/22 Range/Units 16:42 Sodium 143 (137-145) mmol/L Potassium 4.2 (3.5-5.1) mmol/L Chloride 109 H (98-107) mmol/L Carbon Dioxide 27 (22-30) mmol/L BUN 15 (7-17) mg/dL Creatinine 0.65 (0.52-1.04) mg/dL Glucose 45 L* (74-99) mg/dL Calcium 9.4 (8.4-10.2) mg/dL AST 28 (14-36) U/L ALT 28 (4-34) U/L Alkaline Phosphatase 110 (38-126) U/L Total Protein 6.6 (6.3-8.2) g/dL Albumin 4.1 (3.5-5.0) g/dL Current Medications Generic Name Dose Route Start Last Admin Trade Name Freq PRN Reason Stop Dose Admin Aspirin 325 mg 11/16/22 09:00 Aspirin 325 Mg Tab PO DAILY [facility] Atorvastatin Calcium 40 mg 11/15/22 21:00 11/15/22 22:56 Atorvastatin 40 Mg Tab PO 40 mg DAILY FRANCISCO JAVIER Administration Clonazepam 1 mg 11/15/22 21:00 11/15/22 22:56 Clonazepam 1 Mg Tab PO 1 mg BID FRANCISCO JAVIER Administration Insulin Aspart 0 unit 11/16/22 07:30 11/16/22 06:23 Insulin Aspart (Novolog) 100 Unit/Ml Vial SQ 2 unit ACHS FRANCISCO JAVIER Administration Protocol Morphine Sulfate 4 mg 11/15/22 21:02 11/16/22 04:12 Morphine Sulfate 4 Mg/Ml Syringe IVP 4 mg Q6HR PRN Administration Pain Nitroglycerin 0.4 mg 11/15/22 18:01 Nitroglycerin Sl Tabs 0.4 Mg Tab SUBLINGUAL Q5M PRN Chest Pain Ondansetron HCl 4 mg 11/15/22 20:55 11/15/22 22:24 Ondansetron Odt 4 Mg Tab PO 4 mg BID PRN Administration Nausea And Vomiting Intake and Output 11/15/22 11/16/22 11/16/22 22:59 06:59 14:59 Other: # Voids 2 3 Weight 106.594 kg 11/15/22 16:42 11/15/22 16:42
[2022-11-16 10:48] LABS: Chol/HDL Ratio 2.93 Ratio; LDL Cholesterol,Calculated 61.2 mg/dL (0.0-131.0)
--- NOTE | 2022-11-16 11:50 | CA ---
Transthoracic Echo Report Name: Aurora Tsai Age: 52 Gender: F : 1970 Exam Date: 11/16/2022 11:24 Exam Location: [facility] Ht (in): 66 Wt (lb): 235 Ordering Physician: Sandy Coon Attending/Referring Phys: [id number], Shaggy Thresher [employer] Maile Crabtree RDCS Procedure CPT: Indications: LVF Cardiac Hx: Technical Quality: Technically difficult study Contrast 1: Lumason Total Dose (mL): 5 Contrast 2: Total Dose (mL): MEASUREMENTS (Male / Female) Normal Values 2D ECHO LV Diastolic Diameter PLAX 4.1 cm 4.2 - 5.9 / 3.9 - 5.3 cm LV Systolic Diameter PLAX 2.7 cm IVS Diastolic Thickness 1.0 cm 0.6 - 1.0 / 0.6 - 0.9 cm LVPW Diastolic Thickness 1.5 cm 0.6 - 1.0 / 0.6 - 0.9 cm LV Relative Wall Thickness 0.6 RV Internal Dim ED PLAX 3.3 cm LA Volume 22.9 cm??? 18 - 58 / 22 - 52 cm??? M-MODE Aortic Root Diameter MM 2.7 cm LA Systolic Diameter MM 4.5 cm LA Ao Ratio MM 1.6 AV Cusp Separation MM 2.1 cm DOPPLER AV Peak Velocity 132.0 cm/s AV Peak Gradient 7.0 mmHg LVOT Peak Velocity 95.9 cm/s LVOT Peak Gradient 3.7 mmHg MV Area PHT 5.6 cm??? Mitral E Point Velocity 73.1 cm/s Mitral A Point Velocity 118.1 cm/s Mitral E to A Ratio 0.6 MV Deceleration Time 134.9 ms MV E' Velocity 10.1 cm/s Mitral E to MV E' Ratio 7.2 FINDINGS Left Ventricle Moderately increased left ventricular wall thickness. Normal left ventricular systolic function with no obvious regional wall motion abnormalities. Left ventricular ejection fraction is estimated at 55-60 %. Right Ventricle Normal right ventricular size and function. Right ventricular systolic pressure within normal limits. Right Atrium Normal right atrial size. Left Atrium Normal left atrial size. Mitral Valve Structurally normal mitral valve. No mitral stenosis, regurgitation or prolapse. Aortic Valve Aortic valve not well visualized. No aortic valve stenosis or regurgitation. Tricuspid Valve Structurally normal tricuspid valve. Trace to mild tricuspid regurgitation. Pulmonic Valve Pulmonic valve not well visualized. Pericardium No pericardial effusion. Aorta Normal size aortic root and proximal ascending aorta. CONCLUSIONS Lumason ECHO contrast used for improved visualization of the endocardial borders (inadequate visualization of two or more contiguous segments). 1. Normal left ventricle size and systolic function 2. Valvular structures not well visualized Previewed by: Dr. Saleem Loera MD (Electronically Signed) Final Date: 16 November 2022 11:49
[2022-11-16] MEDS: APIXABAN 5 MG TAB PO SCH ×2 (12:16→20:35)
[2022-11-16] MEDS: ISOSORBIDE MONONITRATE ER 30 MG TAB.ER.24H PO SCH (12:16)
[2022-11-16] MEDS: RANOLAZINE 500 MG TAB.ER.12H PO SCH ×2 (12:16→20:35)
[2022-11-16] MEDS: ATORVASTATIN 40 MG TAB PO SCH (12:16)
[2022-11-16 12:17] LABS: Glucose,Whole Blood 167 mg/dL (70-110)
[2022-11-16] MEDS: clonazePAM 1 MG TAB PO SCH ×2 (12:20→20:35)
--- NOTE | 2022-11-16 13:52 | HP ---
HISTORY AND PHYSICAL CHIEF COMPLAINT: Chest pain. HISTORY OF PRESENT ILLNESS: This is a 52-year-old woman with past medical history of multiple medical problems including diabetes, hypertension, being followed by Brayden Valdovinos. The patient is complaining of chest pain which was felt in the anterior part of chest, left- sided chest pain, radiating to shoulder. The patient came to [facility], patient had a stress test and during the stress test, patient was sick with chest pain and vomiting. The patient was admitted for evaluation and treatment. Cardiology evaluation in progress. The initial troponins are negative. The glucose is found to be 45. There is no history of any fever, rigors, or chills at this time. PAST MEDICAL HISTORY: History of CVA, TIA, diabetes mellitus type 2, rest of medications and rest of the history is noted. HOME MEDICATIONS: Reviewed include Zofran, doses and rest of medications noted. ALLERGIES: Tigan and Vancomycin. FAMILY HISTORY: No history of heart disease or strokes in the family. SOCIAL HISTORY: History of THC. REVIEW OF SYSTEMS: A 14-point review is negative except as mentioned earlier. PHYSICAL EXAMINATION: VITAL SIGNS: Pulse is 84, blood pressure 120/70, and respirations 16. HEENT: Conjunctivae normal. NECK: No jugular venous distention. No carotid bruit. CARDIOVASCULAR: S1, S2 muffled. RESPIRATION: n ABDOMEN: Soft. NERVOUS SYSTEM: No focal deficits. LEGS: No edema. No swelling. JOINTS: No active deforming arthropathy. LABS: Reviewed. EKG reviewed. Troponins are negative. ASSESSMENT: 1. Chest pain, possible unstable angina. 2. Abdominal reaction during stress test. 3. Hypoglycemia. 4. Diabetes mellitus, type 2. 5. History of cerebrovascular accident, transient ischemic attack. 6. Hypertension. 7. Hyperlipidemia. 8. Multiple medical issues. RECOMMENDATIONS: This 52-year-old woman presented with multiple medical issues, we will monitor the patient closely. I recommended to continue current management and continue symptomatic treatment, antiplatelet agents. Closely follow with Cardiology. Await reports of the stress test. Guarded prognosis. Further recommendations. See orders for further details. MMODL / IJN: [id number] / MTDD
--- NOTE | 2022-11-16 17:04 | CA ---
Dobutamine Stress Echocardiogram Report Aurora Tsai Age: 52 Gender: F : 1970 Exam Date: 11/16/2022 10:52 Exam Location: [facility] Ordering Physician: Sandy Coon Referring Physician: [id number] Stark Business [employer] Associate: CLARIBEL,, Technologist: Ht (in): 66 Wt (lb): 235 Procedure CPT: Indication: CP ICD-9 Codes: Rhythm: Patient History: Atypical angina, , Dyspnea/SOB, , Hyperlipidemia, , Diabetes mellitus, , Family history Cardiac Medications: Medications in past 24 hours: Contrast: Lumason Total Dose (mL): 5 Stress Results Protocol: Dobutamine Peak Dose (???g/kg/min): Duration (min:sec): Atropine:(mg) Target HR: 143 Double Product: 27119 Resting HR: 94 Resting BP: 139 / 90 Peak HR: 139 Peak BP: 207 / 58 Max Predicted HR: 168 83 % Max Predicted HR Stress Summary: BP Response: Reason for Termination: Exceeded target heart rate Cardiac Symptoms: ECG Analysis Resting EKG: Normal sinus rhythm, normal ECG Stress EKG: No abnormal ST/T wave changes with exercise Arrhythmia: Occasional PVCs Echo Analysis Base Echo Analysis: Normal resting echocardiogram. Low Echo Anaylsis: No wall motion changes with stress. Peak Echo Analysis: No wall motion changes with stress. Recovery Echo: Normal Dobutamine stress echocardiogram. MEASUREMENTS (Male/Female) Normal Values CONCLUSIONS No echocardiographic evidence of myocardial ischemia. Normal global and regional wall motion with a left ventricular ejection fraction of %. Normal response to Dobutamine. Dr. Saleem Loera MD (Electronically Signed) Final Date: 16 November 2022 17:04
[2022-11-16 17:13] LABS: Glucose,Whole Blood 279 mg/dL (70-110)
[2022-11-16] MEDS: ONDANSETRON ODT 4 MG TAB PO PRN (17:15)
[2022-11-16] MEDS: PANTOPRAZOLE 40 MG/10 ML VIAL IVP SCH (20:35)
[2022-11-16 20:50] LABS: Glucose,Whole Blood 195 mg/dL (70-110)
[2022-11-17 06:27] LABS: Glucose,Whole Blood 235 mg/dL (70-110)
[2022-11-17] MEDS: INSULIN ASPART (NovoLOG) 100 UNIT/ML VIAL SQ SCH (06:31)
--- NOTE | 2022-11-17 07:29 | P.PN ---
Subjective Progress Note Date: 11/17/22 PROGRESS NOTE The patient is a 52-year-old female with a history of diabetes, hyperlipidemia who presented with symptoms of chest discomfort and normal cardiac enzymes. She's feeling better today, has minimal discomfort. Underwent a stress echocardiogram showed no evidence of stress-induced ischemia. Her left ventricle systolic function is normal. She continues to be in sinus mechanism. She underwent cardiac catheterization in 2012 that showed no evidence of obstructive disease. Medications: Lipitor 40 mg daily, isosorbide mononitrate 30 mg daily, Ranexa 500 mg twice a day, insulin,Eliquis 5 mg twice a day PHYSICAL EXAMINATION: Blood pressure 124/70 heart rate 90 LUNGS: Clear to auscultation HEART: Regular rate and rhythm, S1, S2. No S3. systolic ejection murmur ABDOMEN: Soft, nontender, no organomegaly EXTREMETIES: No edema LAB: Cholesterol is 136, LDL 61 IMPRESSION: 1. Chest discomfort with no evidence of acute coronary syndrome 2. History of diabetes 3. History of hyperlipidemia 4. Paroxysmal atrial fibrillation, maintaining sinus mechanism PLAN: 1. Continue present therapy 2. Discharged home today 3. And follow-up as an outpatient 4. Depending on her progress further recommendations will be made Objective - Vital Signs Vital signs: Vital Signs Temp 98.0 F 11/17/22 02:43 Pulse 90 11/17/22 02:43 Resp 16 11/17/22 02:43 BP 124/78 11/17/22 02:43 Pulse Ox 93 L 11/17/22 02:43 FiO2 Intake & Output 11/16/22 11/17/22 11/17/22 18:59 06:59 18:59 Other: # Voids 2 2 - Labs CBC & Chem 7: 11/15/22 16:42 11/15/22 16:42 Labs: Abnormal Lab Results - Last 24 Hours (Table) 11/16/22 11/16/22 11/16/22 Range/Units 12:14 17:11 20:48 POC Glucose (mg/dL) 167 H 279 H 195 H (70-110) mg/dL 11/17/22 Range/Units 06:25 POC Glucose (mg/dL) 235 H (70-110) mg/dL
[2022-11-17 08:09] VITALS: BP 125/81; PULSE 87; RESP 18; TEMP 97.9
[2022-11-17] MEDS: PANTOPRAZOLE 40 MG/10 ML VIAL IVP SCH (08:27)
[2022-11-17] MEDS: APIXABAN 5 MG TAB PO SCH (08:28)
[2022-11-17] MEDS: ISOSORBIDE MONONITRATE ER 30 MG TAB.ER.24H PO SCH (08:28)
[2022-11-17] MEDS: clonazePAM 1 MG TAB PO SCH (08:28)
[2022-11-17] MEDS: ATORVASTATIN 40 MG TAB PO SCH (08:28)
[2022-11-17] MEDS: RANOLAZINE 500 MG TAB.ER.12H PO SCH (08:28)
[2022-11-17] MEDS ORDERED: DILTIAZEM CD 240 MG CAP.ER.24H PO SCH (09:00)
[2022-11-17 09:06] LABS: Basophils # (A) 0.03 X 10*3/uL (0.00-0.10); Basophils % (A) 0.8 %; Eosinophils # (A) 0.12 X 10*3/uL (0.04-0.35); Eosinophils % (A) 3.1 %; HCT 36.6 % (37.2-46.3); HGB 11.8 g/dL (12.0-15.0); Immature Grans, Automated 0.3 %; Lymphocytes # (A) 1.29 X 10*3/uL (0.90-5.00); Lymphocytes % (A) 33.3 %; MCH 28.9 pg (27.0-32.0); MCHC 32.2 g/dL (32.0-37.0); MCV 89.7 fL (80.0-97.0); Monocytes # (A) 0.34 X 10*3/uL (0.20-1.00); Monocytes % (A) 8.8 %; NRBC Per 100 WBC 0 /100 WBCS (0.0-0.0); Neutrophils # (A) 2.08 X 10*3/uL (1.80-7.70); Neutrophils % (A) 53.7 %; Platelet Count 200 X 10*3/uL (140-440); RBC 4.08 X 10*6/uL (4.10-5.20); RDW 12.6 % (11.5-14.5); WBC 3.87 X 10*3/uL (4.50-10.00)
[2022-11-17 09:26] LABS: African American GFR (CKD) 98.2 (60.0-200.0); Anion Gap 8.6 mmol/L (10.00-18.00); Blood Urea Nitrogen 13.6 mg/dL (9.0-27.0); Calcium 8.9 mg/dL (8.7-10.3); Carbon Dioxide 28.4 mmol/L (20.0-27.5); Non-African American GFR(CKD) 84.8 (60.0-200.0); Potassium 4.5 mmol/L (3.5-5.5)
--- NOTE | 2022-11-17 12:42 | DS ---
DISCHARGE SUMMARY FINAL DIAGNOSES: 1. Chest pain, possible gastroesophageal reflux disease, negative stress test. 2. Abdominal discomfort and vomiting possibly acute gastritis. 3. Hypoglycemia. 4. Diabetes mellitus, type 2. 5. History of cerebrovascular accident, transient ischemic attack. 6. Hypertension. 7. Hyperlipidemia. 8. Multiple medical issues. DISCHARGE DISPOSITION: The patient will be discharged in stable condition with guarded prognosis. HISTORY OF PRESENT ILLNESS: This is a 52-year-old woman with a past medical history of multiple medical problems, admitted with chest pain and other medical issues. The patient was monitored closely. Stress test was negative. The patient has abdominal symptoms. Recommend outpatient followup. The patient also has some hypoglycemia. Recommend close followup with Accu- Cheks before meals and at bedtime and follow with Dr. Valdovinos in 3 to 4 days and further recommendations to follow. MMODL / IJN: [id number] /
== END 2022-11-17 11:45 | disposition home or self-care (01) ==
LOC: EC 15:47 → 6NMEDSUR 18:01
PROVIDERS: ADMIT Hospitalist; ATTEND Hospitalist
DX: R07.89 Other chest pain (principal); R11.10 Vomiting, unspecified; R10.9 Unspecified abdominal pain; E11.649 Type 2 diabetes mellitus with hypoglycemia without coma; I10 Essential (primary) hypertension; E78.5 Hyperlipidemia, unspecified; I48.0 Paroxysmal atrial fibrillation; J45.909 Unspecified asthma, uncomplicated; R60.9 Edema, unspecified; E66.9 Obesity, unspecified; Z86.73 Personal history of transient ischemic attack (TIA), and cerebral infarction without residual deficits; Z79.899 Other long term (current) drug therapy; Z79.01 Long term (current) use of anticoagulants; Z79.82 Long term (current) use of aspirin; Z79.4 Long term (current) use of insulin; Z88.1 Allergy status to other antibiotic agents
CPT/HCPCS: 96372 ×2; 96374; 96375; 96376 ×2; 99285; 36415; 94760; 93005; 80061; 80053; 80048; 83735; 84484; 85025 ×2; 85610; 85730; 71046; G0378 ×3; C8929; C8930; J2270 ×2; C9113 ×2; Q9950; 93306; 93351

== ENCOUNTER 2022-11-21 16:11 | Emergency (ER) | payer MEDICARE, OTHER ==
[2022-11-21 16:16] VITALS: RESP 18; TEMP 96.9
[2022-11-21] MEDS ORDERED: MORPHINE SULFATE 4 MG/ML SYRINGE IV STA (16:23)
[2022-11-21 16:48] LABS: Basophils % (A) 0 %; Eosinophils # (A) 0.2 k/uL (0-0.7); Eosinophils % (A) 3 %; HCT 40.7 % (34.0-46.0); Lymphocytes # (A) 1.3 k/uL (1.0-4.8); Lymphocytes % (A) 24 %; MCH 30.2 pg (25.0-35.0); MCHC 34.3 g/dL (31.0-37.0); MCV 88.1 fL (80.0-100.0); Mean Platelet Volume 8.6; Monocytes # (A) 0.3 k/uL (0-1.0); Monocytes % (A) 5 %; Neutrophils # (A) 3.6 k/uL (1.3-7.7); Neutrophils % (A) 67 %; Platelet Count 224 k/uL (150-450); RBC 4.62 m/uL (3.80-5.40); RDW 13.4 % (11.5-15.5); WBC 5.4 k/uL (3.8-10.6)
[2022-11-21 17:30] LABS: ALT 28 U/L (4-34); AST 24 U/L (14-36); African American GFR (CKD) >90 (>60 ml/min/1.73 sqM); Albumin 3.6 g/dL (3.5-5.0); Alkaline Phosphatase 113 U/L (38-126); Anion Gap 5 mmol/L; Blood Urea Nitrogen 12 mg/dL (7-17); Calcium 8.5 mg/dL (8.4-10.2); Carbon Dioxide 26 mmol/L (22-30); Chloride 109 mmol/L (98-107); Glucose 229 mg/dL (74-99); Lipase 88 U/L (23-300); Magnesium 1.8 mg/dL (1.6-2.3); Non-African American GFR(CKD) >90 (>60 ml/min/1.73 sqM); Potassium 4.1 mmol/L (3.5-5.1); Sodium 140 mmol/L (137-145); Total Bilirubin 0.4 mg/dL (0.2-1.3); Total Protein 5.7 g/dL (6.3-8.2)
[2022-11-21 18:04] LABS: Partial Thromboplastin Time 29.8 sec (22.0-30.0); Prothrombin Time 10.4 sec (9.0-12.0)
--- NOTE | 2022-11-21 18:29 | ED ---
Chest Pain HPI - General Chief Complaint: Chest Pain Stated Complaint: chest pain Source: patient Mode of arrival: wheelchair Limitations: no limitations - History of Present Illness Initial Comments: 52-year-old female past medical history of CVA, diabetes, hypertension, A. fib on anticoagulation who presents to the emergency department reporting chest pain, generalized weakness. Patient reports that she has had the symptoms for the past week. She came into the emergency department and was hospitalized on the for these complaints. She had a stress test and echo performed. Cardiology cleared the patient. She reports that she was given cardiology and primary care follow-up. She does have follow-up appointment later this week however she states that she's had continued symptoms with no improvement. Requesting reevaluation. Reports to left-sided chest pain with radiation into her left jaw. Reports to generalized weakness and lightheadedness. Patient did take one nitro today for her chest pain and did not have any improvement. She denies fevers, chills or cough. Pain is not reproducible. No ripping or tearing sensation to her back. Has a history of DVT and PE and is taking her anticoagulation. Denies any missed doses. No previous history of cardiac disease. She denies nausea or vomiting. 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 - Related Data Home Medications Medication Instructions Recorded Confirmed ARIPiprazole [Abilify] 10 mg PO DAILY 11/15/22 11/21/22 Albuterol Sulfate [Albuterol 2 puff PO RT-Q6H PRN 11/15/22 11/21/22 Sulfate Hfa] Amitriptyline HCl [Elavil] 25 mg PO HS 11/15/22 11/21/22 Apixaban [Eliquis] 5 mg PO BID 11/15/22 11/21/22 Aspirin EC [Ecotrin Low Dose] 81 mg PO DAILY 11/15/22 11/21/22 Atorvastatin Calcium [Lipitor] 40 mg PO DAILY 11/15/22 11/21/22 DULoxetine HCL [Cymbalta] 30 mg PO HS 11/15/22 11/21/22 DULoxetine HCL [Cymbalta] 60 mg PO DAILY 11/15/22 11/21/22 Dulaglutide [Trulicity] 3 mg SQ TH 11/15/22 11/21/22 Erenumab-Aooe [Aimovig 70 mg SQ QMONTHLY 11/15/22 11/21/22 Autoinjector] Insulin Aspart [NovoLOG Flexpen] 17 units SQ AC-TID 11/15/22 11/21/22 Insulin Aspart [NovoLOG Flexpen] See Protocol SQ AC-TID 11/15/22 11/21/22 Isosorbide Mononitrate ER [Imdur] 30 mg PO DAILY 11/15/22 11/21/22 Magnesium Oxide 400 mg PO DAILY 11/15/22 11/21/22 Montelukast Sodium [Singulair] 10 mg PO HS 11/15/22 11/21/22 Multivitamins, Thera [Multivitamin 1 tab PO DAILY 11/15/22 11/21/22 (formulary)] Nitroglycerin Sl Tabs [Nitrostat] 0.4 mg SUBLINGUAL Q5M PRN 11/15/22 11/21/22 Omeprazole 40 mg PO BID 11/15/22 11/21/22 Ondansetron Odt [Zofran ODT] 4 mg PO BID PRN 11/15/22 11/21/22 Ranolazine [Ranolazine ER] 500 mg PO BID 11/15/22 11/21/22 Topiramate [Topamax] 100 mg PO BID 11/15/22 11/21/22 clonazePAM [KlonoPIN] 1 mg PO BID 11/15/22 11/21/22 dilTIAZem HCL [dilTIAZem [id number] 240 mg PO DAILY 11/15/22 11/21/22 ER (CD)] methocarbamoL [Robaxin] 500 mg PO TID PRN 11/15/22 11/21/22 Previous Rx's Medication Instructions Recorded Insulin Detemir [Levemir Flextouch 20 units SQ HS #0 11/17/22 Pen] Allergies Allergy/AdvReac Type Severity Reaction Status Date / Time trimethobenzamide Allergy Rash/Hives Verified 11/21/22 18:00 [From Tigan] vancomycin Allergy Rash/Hives Verified 11/21/22 18:00 Review of Systems ROS Statement: Those systems with pertinent positive or pertinent negative responses have been documented in the HPI. ROS Other: All systems not noted in ROS Statement are negative. EKG Findings - EKG Comments: EKG Findings:: EKG demonstrates normal sinus rhythm rate of 86. NJ interval 136. QRS 78. QTC 459. No acute ST segment elevations or depressions. EKG interpreted by myself Past Medical History Past Medical History: CVA/TIA, Diabetes Mellitus, Hyperlipidemia, Hypertension Additional Past Medical History / Comment(s): fibomyalgia History of Any Multi-Drug Resistant Organisms: None Reported Past Surgical History: Appendectomy, Cholecystectomy, Hysterectomy, Orthopedic Surgery Past Psychological History: No Psychological Hx Reported Smoking Status: Never smoker Past Alcohol Use History: Occasional Past Drug Use History: Marijuana General Exam Limitations: no limitations General appearance: alert, in no apparent distress Head exam: Present: atraumatic, normocephalic, normal inspection Eye exam: Present: normal appearance, PERRL, EOMI. Absent: scleral icterus, conjunctival injection, periorbital swelling ENT exam: Present: normal exam, mucous membranes moist Neck exam: Present: normal inspection. Absent: tenderness, meningismus, lymphadenopathy Respiratory exam: Present: normal lung sounds bilaterally. Absent: respiratory distress, wheezes, rales, rhonchi, stridor Cardiovascular Exam: Present: regular rate, normal rhythm, normal heart sounds. Absent: systolic murmur, diastolic murmur, rubs, gallop, clicks GI/Abdominal exam: Present: soft, normal bowel sounds. Absent: distended, tenderness, guarding, rebound, rigid Extremities exam: Present: normal inspection, full ROM, normal capillary refill. Absent: tenderness, pedal edema, joint swelling, calf tenderness Back exam: Present: normal inspection Neurological exam: Present: alert, oriented X3, CN II-XII intact Psychiatric exam: Present: normal affect, normal mood Skin exam: Present: warm, dry, intact, normal color. Absent: rash Course Vital Signs 11/21/22 11/21/22 11/21/22 16:13 17:35 19:06 Temperature 96.9 F L Pulse Rate 92 86 68 Respiratory 18 18 18 Rate Blood Pressure 127/80 146/70 134/84 O2 Sat by Pulse 96 95 96 Oximetry Chest Pain MDM - MDM Was pt. sent in by a medical professional or institution? @ -No Did you speak to anyone other than the patient for history? @ -No Did you review nursing and triage notes? @ -Yes and I agree Were old charts reviewed? @ -The patient's hospitalization record from the is a 28. This includes the echo and stress test as well as cardiac consultation Differential Diagnosis? @ -Differential Chest Pain: Stable Angina, Unstable Angina, STEMI, NSTEMI Aortic Dissection, Pneumothorax, Musculoskeletal, Esophageal Spasm GERD, Cholecystitis, Pancreatitis, Zoster, this is not meant to be an all-inclusive list. EKG interpreted by me (3pts min.)? @ -Yes X-rays interpreted by me (1pt min.)? @ -No x-ray performed this visit, reviewed x-ray from previous visit CT interpreted by me (1pt min.)? @ -No U/S interpreted by me (1pt. min.)? @ -No What testing was considered but not performed? (CT, X-rays, U/S, labs)? Why? @ X-ray considered however performed during last admission. CT considered however d-dimer negative What meds were considered but not given? Why? @Nitroglycerin however patient noted took at home without relief Did you discuss the management of the patient with other professionals? @ -No Did you reconcile home meds? @ -No Was smoking cessation discussed for >3mins.? @ -No Was critical care preformed (if so, how long)? @ -No Were there social determinants of health that impacted care today? How? (Homelessness, low income, unemployed, alcoholism, drug addiction, transportation, low edu. Level, literacy, decrease access to med. care, assisted, rehab)? @ -No Was there de-escalation of care discussed even if they declined? (Discuss DNR or withdrawal of care, Hospice)? @ -No What co-morbidities impacted this encounter? (DM, HTN, Smoking, COPD, CAD, Cancer, CVA, Hep., AIDS, mental health diagnosis, sleep apnea, morbid obesity)? @ -DM, HTN, CVA Was patient admitted / discharged? @Upon arrival patient was placed into room trauma 1. Thorough history and physical exam is performed. Patient placed on continuous pulse ox and cardiac monitoring. 12-lead EKG was obtained. EKG compared to old EKG and no changes. IV is established. Patient informal grams of morphine for pain control. Laboratory studies are repeated. I did review the patient's chest x-ray from previous admission. Laboratory studies are reviewed and are discussed results with the patient. Patient recently just hospitalized with negative workup. No abnormal labs today to suggest any changes. Discuss results with the patient. 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 Patient agreeable to treatment plan and was discharged home in stable condition Undiagnosed new problem with uncertain prognosis? @ -No Drug Therapy requiring intensive monitoring for toxicity (Heparin, Nitro, Insulin, Cardizem)? @ -No Were any procedures done? @ -No Diagnosis/symptom? @ -Chest pain Acute, or Chronic, or Acute on Chronic? @ -Subacute Uncomplicated (without systemic symptoms) or Complicated (systemic symptoms)? @ -Complicated Side effects of treatment? @ -No Exacerbation, Progression, or Severe Exacerbation] @ -No Poses a threat to life or bodily function? @ -No Disposition Clinical Impression: Chest pain Disposition: HOME SELF-CARE Condition: Stable Instructions (If sedation given, give patient instructions): Chest Pain (ED) Additional Instructions: Todays testing was normal. Please follow up with your doctor for further testing of your symptoms. Return for any new or worsening symptoms. Is patient prescribed a controlled substance at d/c from ED?: No Referrals: Brayden Valdovinos DO [Primary Care Provider] - 1-2 days Time of Disposition: 18:29
[2022-11-21 19:08] VITALS: BP 134/84; PULSE 68
== END 2022-11-21 19:08 | disposition home or self-care (01) ==
LOC: EC 16:11
DX: R07.89 Other chest pain (principal); I10 Essential (primary) hypertension; I48.91 Unspecified atrial fibrillation; E11.9 Type 2 diabetes mellitus without complications; F12.90 Cannabis use, unspecified, uncomplicated; E78.5 Hyperlipidemia, unspecified; Z79.01 Long term (current) use of anticoagulants; Z79.4 Long term (current) use of insulin; Z79.82 Long term (current) use of aspirin; Z79.899 Other long term (current) drug therapy; Z88.1 Allergy status to other antibiotic agents; Z88.2 Allergy status to sulfonamides
CPT/HCPCS: 36415; 93005; 85379; 80053; 83690; 83735; 84484; 85025; 85610; 85730; 99285; 96374; J2270

== ENCOUNTER → 2022-11-26 | Outpatient (CLI) | payer MEDICARE, OTHER ==
--- NOTE | 2022-11-26 11:10 | US ---
EXAMINATION TYPE: US abdomen complete DATE OF EXAM: 11/26/2022 COMPARISON: CT abdomen pelvis 10/29/2022 CLINICAL HISTORY: R10.11 RUQ PAIN. Pain gb removed. TECHNIQUE: Multiple sonographic images of the abdomen are obtained. FINDINGS: EXAM MEASUREMENTS: Liver Length: 14.8 cm Gallbladder Wall: Surgically absent cm CBD: .4 cm Spleen: 12.6 cm Right Kidney: 11.6 x 5.0 x 4.9 cm Left Kidney: 10.4 x 5.7 x 6.5 cm FIELD RADIO TECHNICIAN NOTES: Pancreas: Obscured by bowel gas Liver: Increased attenuation Gallbladder: Surgically absent CBD: wnl Spleen: wnl Right Kidney: wnl Left Kidney: wnl Upper IVC: wnl Abd Aorta: wnl Pancreas obscured by overlying bowel gas. Increased echogenicity throughout the liver without focal l esion. Gallbladder is surgically absent. The common bile ducts within normal limits. Spleen is unrema rkable. Both kidneys demonstrate no hydronephrosis, shadowing calculi, or contour deforming solid mas s. The intrahepatic portion of the IVC and proximal abdominal aorta are within normal limits. IMPRESSION: 1. No acute process. 2. Hepatic steatosis.
== END | disposition home or self-care (01) ==
LOC: RADUSWWP 10:01
PROVIDERS: ATTEND Family Medicine
DX: K76.0 Fatty (change of) liver, not elsewhere classified (principal)
CPT/HCPCS: 76700

== ENCOUNTER 2022-12-08 12:00 | Emergency (ER) | payer MEDICARE, OTHER ==
[2022-12-08 12:05] VITALS: TEMP 98.2
[2022-12-08] MEDS ORDERED: SODIUM CHLORIDE 0.9% 1,000 ML IV STA (12:13)
[2022-12-08] MEDS ORDERED: PROCHLORPERAZINE 10 MG TAB PO STA (12:14)
[2022-12-08] MEDS ORDERED: diphenhydrAMINE 50 MG/ML 1 ML VIAL IVP STA (12:14)
[2022-12-08] MEDS ORDERED: HYDROmorphone 1 MG/ML 1 ML SYRINGE IVP STA ×2 (12:28→13:55)
[2022-12-08 12:49] LABS: INR 0.9 (<1.2); Partial Thromboplastin Time 26.5 sec (22.0-30.0); Prothrombin Time 9.7 sec (9.0-12.0)
[2022-12-08 12:50] LABS: ALT 27 U/L (4-34); AST 22 U/L (14-36); African American GFR (CKD) >90 (>60 ml/min/1.73 sqM); Albumin 4.1 g/dL (3.5-5.0); Alkaline Phosphatase 126 U/L (38-126); Anion Gap 9 mmol/L; Blood Urea Nitrogen 10 mg/dL (7-17); Calcium 8.7 mg/dL (8.4-10.2); Carbon Dioxide 24 mmol/L (22-30); Chloride 107 mmol/L (98-107); Glucose 145 mg/dL (74-99); Non-African American GFR(CKD) >90 (>60 ml/min/1.73 sqM); Potassium 4.2 mmol/L (3.5-5.1); Sodium 140 mmol/L (137-145); Total Bilirubin 0.4 mg/dL (0.2-1.3); Total Protein 6.6 g/dL (6.3-8.2)
--- NOTE | 2022-12-08 12:56 | XR ---
EXAMINATION TYPE: XR chest 2V DATE OF EXAM: 12/08/2022 12:53 PM COMPARISON: Chest radiographs from 11/15/2022 TECHNIQUE: XR chest 2V Frontal and lateral views of the chest. CLINICAL INDICATION:Female, 52 years old with history of altered mental status; FINDINGS: Lungs/Pleura: There is no evidence of pleural effusion, focal consolidation, or pneumothorax. Pulmonary vascularity: Unremarkable. Heart/mediastinum: Cardiomediastinal silhouette is enlarged and stable. Musculoskeletal: No acute osseous pathology. IMPRESSION: No acute cardiopulmonary disease/process. No change from prior.
--- NOTE | 2022-12-08 13:46 | CT ---
EXAMINATION TYPE: CT brain wo con DATE OF EXAM: 12/08/2022 COMPARISON: None HISTORY: 52-year-old female Slow speech, neuro deficit, acute, stroke suspected TECHNIQUE: Examination was done in axial plane without intravenous contrast. Coronal and sagittal r econstructions performed. CT DLP: 1102.6 mGycm Automated exposure control for dose reduction was used. FINDINGS: There is no evidence of acute intracranial hemorrhage, acute ischemic changes, mass, mass-effect, or extra-axial fluid collection. There is no effacement of cerebral sulci or basal subarachnoid cister ns. There is no hydrocephalus. There is no midline shift. Lynn-white matter distinction is preserv ed. There is focal encephalomalacia involving the left subinsular region suggesting old white matter infa rct. Benign basal ganglionic calcifications on the left. Rightward nasal septal deviation. Trace mucosal thickening ethmoid air cells. Paranasal sinuses and m astoid air cells are pneumatized. IMPRESSION: No acute intracranial abnormality seen. Old subinsular white matter/lacunar infarct on the left.
[2022-12-08 13:47] LABS: Basophils % (A) 1 %; Eosinophils # (A) 0.1 k/uL (0-0.7); Eosinophils % (A) 3 %; HCT 41.7 % (34.0-46.0); HGB 13.7 gm/dL (11.4-16.0); Lymphocytes # (A) 1.1 k/uL (1.0-4.8); Lymphocytes % (A) 28 %; MCHC 32.8 g/dL (31.0-37.0); MCV 88.5 fL (80.0-100.0); Mean Platelet Volume 8.6; Monocytes # (A) 0.2 k/uL (0-1.0); Monocytes % (A) 5 %; Neutrophils # (A) 2.4 k/uL (1.3-7.7); Neutrophils % (A) 62 %; Platelet Count 223 k/uL (150-450); RBC 4.71 m/uL (3.80-5.40); RDW 13.4 % (11.5-15.5)
--- NOTE | 2022-12-08 13:53 | CT ---
EXAMINATION TYPE: CT angio head neck DATE OF EXAM: 12/08/2022 COMPARISON: Brain same day HISTORY: 52-year-old female Slow speech, neuro deficit, acute, stroke suspected TECHNIQUE: Contiguous axial scanning of the head and neck performed with IV Contrast, patient injecte d with 65 mL of Isovue 370. Coronal/sagittal MIP reconstructions performed. 3-D reconstructions gener ated on a dedicated independent workstation. CT DLP: Not reported Automated exposure control for dose reduction was used. FINDINGS: NECK: Conventional branching anatomy. The vertebral arteries are codominant and patent proper course. There may be mild atelectatic narrowi ng at the origin of the right vertebral artery. The right common carotid artery is patent. Bilateral scattered calcifications proximal right internal carotid artery. Partial retropharyngeal co urse right ICA without any significant narrowing by NASCET criteria. The left common carotid artery is patent. Mild atherosclerotic calcifications proximal left ICA but without any significant narrowing. Remainde r of the left ICA is patent. Incidentally, there is asymmetric thickening along the left aryepiglottic fold causing asymmetric eff acement of the left paraform sinus. Direct visualization to exclude an underlying mucosal lesion. HEAD: The vertebral and basilar arteries are patent. 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 Posterior circulation otherwi se patent. Mild atherosclerotic calcifications throughout the carotid siphons. Mild narrowing proximal cavernous segment left ICA and moderate focal narrowing supraclinoid left ICA, axial image 601. Otherwise, the bilateral internal carotid arteries are patent as is the remainder of the anterior cir culation. No aneurysmal changes seen. Dural venous sinuses are patent. IMPRESSION: 1. NECK: MILD ATHEROSCLEROTIC CHANGES AT THE BILATERAL PROXIMAL ICA's. NO SIGNIFICANT NARROWING IS DE ESENT. 2. 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 MODERATE ATHEROSCLEROTIC NARROWIN G SUPRACLINOID LEFT ICA. NO LARGE VESSEL INTRACRANIAL ARTERIAL OCCLUSION, SIGNIFICANT STENOSIS, OR AN EURYSMAL CHANGE IS SEEN.
--- NOTE | 2022-12-08 14:31 | ED ---
General Adult HPI - General Chief complaint: Neuro Symptoms/Deficit Stated complaint: TIA Time Seen by Provider: 12/08/22 12:10 Source: patient Mode of arrival: ambulatory Limitations: no limitations - History of Present Illness Initial comments: Patient complains of a headache. She has had some trouble speaking. She has a history of CVA in the past. She currently takes a blood thinner. She has no focal weakness. She has no lightheadedness. She has no dizziness. This is not the worse headache of her life. The headache came on gradually. She has a history of migraines. She has no nausea or vomiting. She has no diaphoresis. She has no chest or belly or back pain. - Related Data Home Medications Medication Instructions Recorded Confirmed ARIPiprazole [Abilify] 10 mg PO DAILY 11/15/22 12/08/22 Albuterol Sulfate [Albuterol 2 puff INHALATION RT-Q6H PRN 11/15/22 12/08/22 Sulfate Hfa] Amitriptyline HCl [Elavil] 25 mg PO HS 11/15/22 12/08/22 Apixaban [Eliquis] 5 mg PO BID 11/15/22 12/08/22 Aspirin EC [Ecotrin Low Dose] 81 mg PO DAILY 11/15/22 12/08/22 Atorvastatin Calcium [Lipitor] 40 mg PO DAILY 11/15/22 12/08/22 DULoxetine HCL [Cymbalta] 30 mg PO HS 11/15/22 12/08/22 DULoxetine HCL [Cymbalta] 60 mg PO DAILY 11/15/22 12/08/22 Dulaglutide [Trulicity] 3 mg SQ TH 11/15/22 12/08/22 Erenumab-Aooe [Aimovig 70 mg SQ QMONTHLY 11/15/22 12/08/22 Autoinjector] Insulin Aspart [NovoLOG Flexpen] 17 units SQ AC-TID 11/15/22 12/08/22 Insulin Aspart [NovoLOG Flexpen] See Protocol SQ AC-TID 11/15/22 12/08/22 Magnesium Oxide 400 mg PO DAILY 11/15/22 12/08/22 Montelukast Sodium [Singulair] 10 mg PO HS 11/15/22 12/08/22 Multivitamins, Thera [Multivitamin 1 tab PO DAILY 11/15/22 12/08/22 (formulary)] Nitroglycerin Sl Tabs [Nitrostat] 0.4 mg SUBLINGUAL Q5M PRN 11/15/22 12/08/22 Omeprazole 40 mg PO BID 11/15/22 12/08/22 Ondansetron Odt [Zofran ODT] 4 mg PO BID PRN 11/15/22 12/08/22 Ranolazine [Ranolazine ER] 500 mg PO BID 11/15/22 12/08/22 Topiramate [Topamax] 100 mg PO BID 11/15/22 12/08/22 clonazePAM [KlonoPIN] 1 mg PO BID 11/15/22 12/08/22 dilTIAZem HCL [dilTIAZem [id number] 240 mg PO DAILY 11/15/22 12/08/22 ER (CD)] methocarbamoL [Robaxin] 500 mg PO TID PRN 11/15/22 12/08/22 Ciclopirox 0.77% Gel 1 applic TOPICAL BID 12/08/22 12/08/22 Isosorbide Mononitrate ER [Imdur] 60 mg PO DAILY 12/08/22 12/08/22 Previous Rx's Medication Instructions Recorded Insulin Detemir [Levemir Flextouch 20 units SQ HS #0 11/17/22 Pen] Allergies Allergy/AdvReac Type Severity Reaction Status Date / Time trimethobenzamide Allergy Rash/Hives Verified 12/08/22 14:14 [From Tigan] vancomycin Allergy Rash/Hives Verified 12/08/22 14:14 Review of Systems ROS Statement: Those systems with pertinent positive or pertinent negative responses have been documented in the HPI. ROS Other: All systems not noted in ROS Statement are negative. Past Medical History Past Medical History: CVA/TIA, Diabetes Mellitus, Hyperlipidemia, Hypertension Additional Past Medical History / Comment(s): fibomyalgia History of Any Multi-Drug Resistant Organisms: None Reported Past Surgical History: Appendectomy, Cholecystectomy, Hysterectomy, Orthopedic Surgery Past Psychological History: No Psychological Hx Reported Smoking Status: Never smoker Past Alcohol Use History: Occasional Past Drug Use History: Marijuana General Exam Limitations: no limitations Course Vital Signs 12/08/22 12:02 Temperature 98.2 F Pulse Rate 85 Respiratory 16 Rate Blood Pressure 173/92 O2 Sat by Pulse 99 Oximetry EKG Findings - EKG Comments: EKG Findings:: Twelve-lead EKG shows ventricular rate 82 bpm, normal CO interval, normal QRS complex, no ST elevation or depression, interpreted by me as normal sinus rhythm. Medical Decision Making - Medical Decision Making Patient presents with headache. She has no neurological deficits on my examination. I did obtain a CT of the head because she had reported trouble speaking. This was independently reviewed and read by me showing no acute intracranial mass or bleed or infarct. Laboratory studies are interpreted by me as normal electrolytes and kidney functioning. Her CBC is normal. I ordered the patient IV droperidol and IV Benadryl for her headache. Patient is reevaluated. Her symptoms are resolved. She is feeling much better. She takes all of her medications as prescribed. I discussed all the results with her. I considered admitting the patient, however she was actually just recently discharged after an extensive workup. I don't think therefore that she requires repeat of this workup and readmission today. There is no acute emergency requiring repeated admission. Patient feels well. She tolerates oral intake. She is stable for discharge. - Lab Data Result diagrams: 12/08/22 12:22 12/08/22 12:22 Lab Results 12/08/22 12/08/22 12/08/22 Range/Units 12:22 12:22 12:22 WBC 4.0 (3.8-10.6) k/uL RBC 4.71 (3.80-5.40) m/uL Hgb 13.7 (11.4-16.0) gm/dL Hct 41.7 (34.0-46.0) % MCV 88.5 (80.0-100.0) fL MCH 29.0 (25.0-35.0) pg MCHC 32.8 (31.0-37.0) g/dL RDW 13.4 (11.5-15.5) % Plt Count 223 (150-450) k/uL MPV 8.6 Neutrophils % 62 % Lymphocytes % 28 % Monocytes % 5 % Eosinophils % 3 % Basophils % 1 % Neutrophils # 2.4 (1.3-7.7) k/uL Lymphocytes # 1.1 (1.0-4.8) k/uL Monocytes # 0.2 (0-1.0) k/uL Eosinophils # 0.1 (0-0.7) k/uL Basophils # 0.0 (0-0.2) k/uL PT 9.7 (9.0-12.0) sec INR 0.9 (<1.2) APTT 26.5 (22.0-30.0) sec Sodium 140 (137-145) mmol/L Potassium 4.2 (3.5-5.1) mmol/L Chloride 107 (98-107) mmol/L Carbon Dioxide 24 (22-30) mmol/L Anion Gap 9 mmol/L BUN 10 (7-17) mg/dL Creatinine 0.58 (0.52-1.04) mg/dL Est GFR (CKD-EPI)AfAm >90 (>60 ml/min/1.73 sqM) Est GFR (CKD-EPI)NonAf >90 (>60 ml/min/1.73 sqM) Glucose 145 H (74-99) mg/dL Calcium 8.7 (8.4-10.2) mg/dL Total Bilirubin 0.4 (0.2-1.3) mg/dL AST 22 (14-36) U/L ALT 27 (4-34) U/L Alkaline Phosphatase 126 (38-126) U/L Troponin I (0.000-0.034) ng/mL Total Protein 6.6 (6.3-8.2) g/dL Albumin 4.1 (3.5-5.0) g/dL 12/08/22 Range/Units 12:22 WBC (3.8-10.6) k/uL RBC (3.80-5.40) m/uL Hgb (11.4-16.0) gm/dL Hct (34.0-46.0) % MCV (80.0-100.0) fL MCH (25.0-35.0) pg MCHC (31.0-37.0) g/dL RDW (11.5-15.5) % Plt Count (150-450) k/uL MPV Neutrophils % % Lymphocytes % % Monocytes % % Eosinophils % % Basophils % % Neutrophils # (1.3-7.7) k/uL Lymphocytes # (1.0-4.8) k/uL Monocytes # (0-1.0) k/uL Eosinophils # (0-0.7) k/uL Basophils # (0-0.2) k/uL PT (9.0-12.0) sec INR (<1.2) APTT (22.0-30.0) sec Sodium (137-145) mmol/L Potassium (3.5-5.1) mmol/L Chloride (98-107) mmol/L Carbon Dioxide (22-30) mmol/L Anion Gap mmol/L BUN (7-17) mg/dL Creatinine (0.52-1.04) mg/dL Est GFR (CKD-EPI)AfAm (>60 ml/min/1.73 sqM) Est GFR (CKD-EPI)NonAf (>60 ml/min/1.73 sqM) Glucose (74-99) mg/dL Calcium (8.4-10.2) mg/dL Total Bilirubin (0.2-1.3) mg/dL AST (14-36) U/L ALT (4-34) U/L Alkaline Phosphatase (38-126) U/L Troponin I <0.012 (0.000-0.034) ng/mL Total Protein (6.3-8.2) g/dL Albumin (3.5-5.0) g/dL Disposition Clinical Impression: Migraine Disposition: HOME SELF-CARE Condition: Good Instructions (If sedation given, give patient instructions): Migraine Headache (ED) Is patient prescribed a controlled substance at d/c from ED?: No Referrals: Brayden Valdovinos DO [Primary Care Provider] - 1-2 days Declan Becker MD [STAFF PHYSICIAN] - 1-2 days
[2022-12-08 15:10] VITALS: BP 122/75; PULSE 77; RESP 15
== END 2022-12-08 15:35 | disposition home or self-care (01) ==
LOC: EC 12:00
DX: G43.909 Migraine, unspecified, not intractable, without status migrainosus (principal); E11.9 Type 2 diabetes mellitus without complications; I10 Essential (primary) hypertension; F12.90 Cannabis use, unspecified, uncomplicated; Z90.710 Acquired absence of both cervix and uterus; Z90.49 Acquired absence of other specified parts of digestive tract; Z90.89 Acquired absence of other organs; Z88.1 Allergy status to other antibiotic agents; Z79.84 Long term (current) use of oral hypoglycemic drugs; Z79.2 Long term (current) use of antibiotics; Z79.82 Long term (current) use of aspirin
CPT/HCPCS: 99284; 96374; 96375; 96376; 96361; 36415; 93005; 80053; 84484; 85025; 85610; 85730; 71046; 70496; 70450; 70498; S0183; J1200; J1170; Q9967; J1790

== ENCOUNTER 2022-12-19 22:35 | Emergency (ER) | payer MEDICARE, OTHER ==
[2022-12-19 22:52] VITALS: TEMP 97.6
--- NOTE | 2022-12-19 22:53 | ED ---
General Adult HPI - General Chief complaint: Fall Stated complaint: Fall-4 stairs Time Seen by Provider: 12/19/22 22:53 Source: patient Mode of arrival: wheelchair Limitations: no limitations - History of Present Illness Initial comments: Patient presents to the ED for evaluation status post slip and fall. Patient states that she accidentally slipped on some ice on her porch when taking her dog out about 45 minutes ago, and she states that she slid down 4 wooden steps on her back. Patient states that she hit the back of her head on the steps as she slid down them. Patient is currently complaining of having a posterior headache, thoracic and lumbar back pain and left upper arm pain. Patient states that she is on a Eliquis. Patient denies any other injury or site of pain, LOC/syncope, focal numbness/weakness/neuro deficit, visual changes, neck pain, chest pain, dyspnea, palpitations, dizziness, abdominal pain, nausea or vomiting, or any other symptoms or complaints. - Related Data Home Medications Medication Instructions Recorded Confirmed ARIPiprazole [Abilify] 10 mg PO DAILY 11/15/22 12/08/22 Albuterol Sulfate [Albuterol 2 puff INHALATION RT-Q6H PRN 11/15/22 12/08/22 Sulfate Hfa] Amitriptyline HCl [Elavil] 25 mg PO HS 11/15/22 12/08/22 Apixaban [Eliquis] 5 mg PO BID 11/15/22 12/08/22 Aspirin EC [Ecotrin Low Dose] 81 mg PO DAILY 11/15/22 12/08/22 Atorvastatin Calcium [Lipitor] 40 mg PO DAILY 11/15/22 12/08/22 DULoxetine HCL [Cymbalta] 30 mg PO HS 11/15/22 12/08/22 DULoxetine HCL [Cymbalta] 60 mg PO DAILY 11/15/22 12/08/22 Dulaglutide [Trulicity] 3 mg SQ TH 11/15/22 12/08/22 Erenumab-Aooe [Aimovig 70 mg SQ QMONTHLY 11/15/22 12/08/22 Autoinjector] Insulin Aspart [NovoLOG Flexpen] 17 units SQ AC-TID 11/15/22 12/08/22 Insulin Aspart [NovoLOG Flexpen] See Protocol SQ AC-TID 11/15/22 12/08/22 Magnesium Oxide 400 mg PO DAILY 11/15/22 12/08/22 Montelukast Sodium [Singulair] 10 mg PO HS 11/15/22 12/08/22 Multivitamins, Thera [Multivitamin 1 tab PO DAILY 11/15/22 12/08/22 (formulary)] Nitroglycerin Sl Tabs [Nitrostat] 0.4 mg SUBLINGUAL Q5M PRN 11/15/22 12/08/22 Omeprazole 40 mg PO BID 11/15/22 12/08/22 Ondansetron Odt [Zofran ODT] 4 mg PO BID PRN 11/15/22 12/08/22 Ranolazine [Ranolazine ER] 500 mg PO BID 11/15/22 12/08/22 Topiramate [Topamax] 100 mg PO BID 11/15/22 12/08/22 clonazePAM [KlonoPIN] 1 mg PO BID 11/15/22 12/08/22 dilTIAZem HCL [dilTIAZem [id number] 240 mg PO DAILY 11/15/22 12/08/22 ER (CD)] methocarbamoL [Robaxin] 500 mg PO TID PRN 11/15/22 12/08/22 Ciclopirox 0.77% Gel 1 applic TOPICAL BID 12/08/22 12/08/22 Isosorbide Mononitrate ER [Imdur] 60 mg PO DAILY 12/08/22 12/08/22 Previous Rx's Medication Instructions Recorded Insulin Detemir [Levemir Flextouch 20 units SQ HS #0 11/17/22 Pen] Allergies Allergy/AdvReac Type Severity Reaction Status Date / Time trimethobenzamide Allergy Rash/Hives Verified 12/19/22 22:52 [From [facility]] vancomycin Allergy Rash/Hives Verified 12/19/22 22:52 Review of Systems ROS Statement: Those systems with pertinent positive or pertinent negative responses have been documented in the HPI. ROS Other: All systems not noted in ROS Statement are negative. Past Medical History Past Medical History: CVA/TIA, Diabetes Mellitus, Hyperlipidemia, Hypertension Additional Past Medical History / Comment(s): fibomyalgia History of Any Multi-Drug Resistant Organisms: None Reported Past Surgical History: Appendectomy, Cholecystectomy, Hysterectomy, Orthopedic Surgery Past Psychological History: No Psychological Hx Reported Smoking Status: Never smoker Past Alcohol Use History: Occasional Past Drug Use History: Marijuana General Exam Limitations: no limitations General appearance: alert, in no apparent distress Head exam: Present: atraumatic, normocephalic Eye exam: Present: normal appearance, PERRL, EOMI ENT exam: Present: mucous membranes moist, TM's normal bilaterally Neck exam: Present: other (Trachea is in midline; no cervical tenderness or step-off deformity is appreciated). Absent: tenderness Respiratory exam: Present: normal lung sounds bilaterally. Absent: respiratory distress, wheezes, rales, rhonchi, stridor Cardiovascular Exam: Present: regular rate, normal rhythm, normal heart sounds, other (Normal radial pulses bilaterally) GI/Abdominal exam: Present: soft. Absent: distended, tenderness, guarding Extremities exam: Present: full ROM, other (Pelvis is stable and nontender; patient has full range of motion at bilateral hips; mild tenderness is noted over distal left humerus) Back exam: Present: other (Mild tenderness is noted over lower thoracic and lumbar spine) Neurological exam: Present: alert, oriented X3, CN II-XII intact. Absent: motor sensory deficit Psychiatric exam: Present: normal affect, normal mood Skin exam: Present: warm, dry, intact, normal color Course Vital Signs 12/19/22 22:45 Temperature 97.6 F Pulse Rate 80 Respiratory 16 Rate Blood Pressure 123/66 O2 Sat by Pulse 97 Oximetry - Reevaluation(s) Reevaluation #1: 12/20/22 00:04 Patient denies development of any new pain or symptoms while in the ED. Patient remains alert and breathing comfortably with a normal neurological exam. Patient is aware of her negative imaging studies, and she feels comfortable being discharged home at this time. Patient was counseled about head injuries, back contusions and arm injuries. Patient was clearly explained return and follow-up instructions, and she was instructed to follow up closely with her primary care provider. Patient feels comfortable with this plan. Medical Decision Making - Medical Decision Making Was pt. sent in by a medical professional or institution (, PA, [facility] [employer], urgent care, hospital, or retirement...) When possible be specific @ -[No] Did you speak to anyone other than the patient for history (EMS, parent, family, police, friend...)? What history was obtained from this source @ -[No] Did you review nursing and triage notes (agree or disagree)? Why? @ -[I reviewed and agree with nursing and triage notes] Were old charts reviewed (outside hosp., previous admission, EMS record, old EKG, old radiological studies, urgent care reports/EKG's, retirement records)? Report findings @ -[No old charts were reviewed] Differential Diagnosis (chest pain, altered mental status, abdominal pain women, abdominal pain men, vaginal bleeding, weakness, fever, dyspnea, syncope, headache, dizziness, GI bleed, back pain, seizure, CVA, palpatations, mental health)? @ -Fall, head injury, concussion, intracranial hemorrhage, fracture, sprain, strain, contusion EKG interpreted by me (3pts min.). @ -None done X-rays interpreted by me (1pt min.). @ -Negative left humerus, thoracic spine and lumbar spine x-rays CT interpreted by me (1pt min.). @ -No U/S interpreted by me (1pt. min.). @ -[None done] What testing was considered but not performed or refused? (CT, X-rays, U/S, labs)? Why? @ -[None] What meds were considered but not given or refused? Why? @ -[None] Did you discuss the management of the patient with other professionals (professionals i.e. , PA, [facility], lab, RT, psych nurse, transition social worker, lab asst, teacher, railroad police officer, bilingual patient support caseworker)? Give summary @ -[No] Was smoking cessation discussed for >3mins.? @ -[No] Was critical care preformed (if so, how long)? @ -[No] Were there social determinants of health that impacted care today? How? (Homelessness, low income, unemployed, alcoholism, drug addiction, transportation, low edu. Level, literacy, decrease access to med. care, half-way, rehab)? @ -[No] Was there de-escalation of care discussed even if they declined (Discuss DNR or withdrawal of care, Hospice)? DNR status @ -[No] What co-morbidities impacted this encounter? (DM, HTN, Smoking, COPD, CAD, Cancer, CVA, ARF, Chemo, Hep., AIDS, mental health diagnosis, sleep apnea, morbid obesity)? @ -Atrial fibrillation on Eliquis anticoagulation Was patient admitted / discharged? Hospital course, mention meds given and route, prescriptions, significant lab abnormalities, going to OR and other pertinent info. @ -Patient's imaging studies are all negative. Patient has a normal neurological exam. Will discharge patient home at this time. Undiagnosed new problem with uncertain prognosis? @ -[No] Drug Therapy requiring intensive monitoring for toxicity (Heparin, Nitro, Insulin, Cardizem)? @ -[No] Were any procedures done? @ -[No] Diagnosis/symptom? @ -Head injury Acute, or Chronic, or Acute on Chronic? @ -Acute Uncomplicated (without systemic symptoms) or Complicated (systemic symptoms)? @ -[default] Side effects of treatment? @ -[No] Exacerbation, Progression, or Severe Exacerbation? @ -[No] Poses a threat to life or bodily function? How? (Chest pain, [place], [place], pneumonia, PE, COPD, DKA, ARF, appy, cholecystitis, CVA, Diverticulitis, Homicidal, Suicidal, threat to staff... and all critical care pts) @ -[No] Diagnosis/symptom? @ -Back contusion Acute, or Chronic, or Acute on Chronic? @ -Acute Uncomplicated (without systemic symptoms) or Complicated (systemic symptoms)? @ -[default] Side effects of treatment? @ -[none] Exacerbation, Progression, or Severe Exacerbation] @ -[no] Poses a threat to life or bodily function? @ -[no] Diagnosis/symptom? @ -Left upper arm injury Acute, or Chronic, or Acute on Chronic? @ -Acute Uncomplicated (without systemic symptoms) or Complicated (systemic symptoms)? @ -[default] Side effects of treatment? @ -[none] Exacerbation, Progression, or Severe Exacerbation] @ -[no] Poses a threat to life or bodily function? @ -[no] - Radiology Data Noncontrast head CT: Negative CT scan of the brain. Left humerus x-rays: Negative left humerus exam. Thoracic spine x-rays: No acute abnormality of the thoracic spine. No fracture. Lumbar spine x-rays: Mild spondylotic changes. No fracture seen. Disposition Clinical Impression: Fall, Head injury, Left upper arm injury, Back contusion Disposition: HOME SELF-CARE Condition: Stable Instructions (If sedation given, give patient instructions): Fall Prevention (ED), Contusion in Adults (ED), Head Injury (ED) Additional Instructions: Return to the ER immediately should you develop new or worsening pain, shortness of breath, feeling dizzy or faint, or new or worsening symptoms. Follow up closely with your primary care provider. Is patient prescribed a controlled substance at d/c from ED?: No Referrals: Brayden Valdovinos DO [Primary Care Provider] - 1-2 days Time of Disposition: 00:07
--- NOTE | 2022-12-19 23:45 | XR ---
EXAMINATION TYPE: XR thoracic spine complete DATE OF EXAM: 12/19/2022 COMPARISON: NONE HISTORY: Fall down the stairs. Pain TECHNIQUE: 3 views FINDINGS: The thoracic vertebra have normal alignment. Posterior elements are intact. No compression fracture. There is no paraspinal mass. There is mild to moderate spurring in the lower thoracic spine . IMPRESSION: No acute abnormality of the thoracic spine. No fracture.
--- NOTE | 2022-12-19 23:49 | XR ---
EXAMINATION TYPE: XR lumbar spine 2 or 3V DATE OF EXAM: 12/19/2022 COMPARISON: None HISTORY: Fall. Pain TECHNIQUE: 3 views FINDINGS: The lumbar vertebra have normal alignment. No compression fracture. There is mild spurring of the endplates. Posterior elements are intact. Sacroiliac joints are intact. IMPRESSION: Mild spondylotic changes. No fracture seen.
--- NOTE | 2022-12-19 23:50 | XR ---
EXAMINATION TYPE: XR humerus LT DATE OF EXAM: 12/19/2022 COMPARISON: NONE HISTORY: Pain TECHNIQUE: 2 view FINDINGS: Shoulder joint and elbow joint appear intact. No evidence of fracture of the humerus. No pa thologic calcification IMPRESSION: Negative left humerus exam.
--- NOTE | 2022-12-19 23:53 | CT ---
EXAMINATION TYPE: CT brain wo con DATE OF EXAM: 12/19/2022 COMPARISON: 12/08/2022 HISTORY: fall down 4 stairs just over an hour ago, hit head & back on steps, pt on blood thinners, de nies loc, headache CT DLP: 1158.7 mGycm Automated exposure control for dose reduction was used. Images of the brain obtained with no contrast. Ventricles have fairly normal size. There is no mass effect or midline shift. No sign of intracranial hemorrhage. There is a 1 cm fluid density in the insula left temporal lobe consistent with Virchow-R obin space. The calvarium is intact. Sella turcica appears normal. Skull base is intact. There is nor mal aeration of the mastoid sinuses. IMPRESSION: Negative CT scan of the brain.
[2022-12-20 00:43] VITALS: BP 129/74; PULSE 74; RESP 15
== END 2022-12-20 00:46 | disposition home or self-care (01) ==
LOC: EC 22:35
DX: S30.0XXA Contusion of lower back and pelvis, initial encounter (principal); S09.90XA Unspecified injury of head, initial encounter; S49.92XA Unspecified injury of left shoulder and upper arm, initial encounter; Z86.73 Personal history of transient ischemic attack (TIA), and cerebral infarction without residual deficits; E11.9 Type 2 diabetes mellitus without complications; E78.5 Hyperlipidemia, unspecified; I10 Essential (primary) hypertension; F12.90 Cannabis use, unspecified, uncomplicated; Z88.2 Allergy status to sulfonamides; Z88.1 Allergy status to other antibiotic agents; Z79.01 Long term (current) use of anticoagulants; Z79.4 Long term (current) use of insulin; Z79.82 Long term (current) use of aspirin; Z79.899 Other long term (current) drug therapy; W10.9XXA Fall (on) (from) unspecified stairs and steps, initial encounter
CPT/HCPCS: 70450; 72072; 72100; 99284

== ENCOUNTER 2023-02-03 04:41 | Inpatient (IN) | payer MEDICARE, OTHER ==
--- NOTE | 2023-02-03 04:53 | ED ---
General Adult HPI - General Stated complaint: Chest Pain Time Seen by Provider: 02/03/23 04:49 - History of Present Illness Initial comments: Dictation was produced using [employer] dictation software. please excuse any grammatical, word or spelling errors. Chief Complaint: 52-year-old female presents emergency department with chest pain History of Present Illness: Patient's 52-year-old female she has had sharp chest pain for the last one hour. She is brought in by EMS. Patient states she woke up out of her sleep with sharp chest pain. She is substernal radiates to the back. Patient also states that it started to radiate to her upper jaw. He does feel some tingling in the left upper extremity. Patient has a history of myoca rdial infarction. EMS provided patient with aspirin. Prehospital EKG according to EMS is unremarkable. Patient states pain is severe with a score of 9 out of 10 pain scale. States it is sharp without any exacerbating factors. Patient is a history of fibromyalgia. The ROS documented in this emergency department record has been reviewed and confirmed by me. Those systems with pertinent positive or negative responses have been documented in the HPI. All other systems are other negative and/or noncontributory. PHYSICAL EXAM: General Impression: Alert and oriented x3, not in acute distress HEENT: Normocephalic atraumatic, extra-ocular movements intact, pupils equal and reactive to light bilaterally, mucous membranes moist. Cardiovascular: Heart regular rate and rhythm Chest: Able to complete full sentences, no retractions, no tachypnea Abdomen: abdomen soft, non-tender, non-distended, no organomegaly Musculoskeletal: Pulses present and equal in all extremities, no peripheral celso a Motor: no focal deficits noted Neurological: CN II-XII grossly intact, no focal motor or sensory deficits noted Skin: Intact with no visualized rashes Psych: Normal affect and mood ED course: 52-year-old well-appearing female presents emergency department for atypical chest pain. Symptoms are concerning for acute aortic dissection. Nursing notes and chart review was performed My EKG interpretation: Ventricular rate 75, sinus rhythm,. 140, QRS 90, QTC 410. No ND prolongation, no QTC prolongation, no ST or T-wave changes noted. Overall, this EKG is unremarkable Was pt. sent in by a medical professional or institution (, PA, [employer], urgent care, hospital, or long term...) When possible be specific @ -No Did you speak to anyone other than the patient for history (EMS, parent, family, police, friend...)? What history was obtained from this source @ -No Did you review nursing and triage notes (agree or disagree)? Why? @ -I reviewed and agree with nursing and triage notes Were old charts reviewed (outside hosp., previous admission, EMS record, old EKG, old radiological studies, urgent care reports/EKG's, long term records)? Report findings @ -No old charts were reviewed Differential Diagnosis (chest pain, altered mental status, abdominal pain women, abdominal pain men, vaginal bleeding, musculoskeletal, weakness, fever, dyspnea, syncope, headache, dizziness, GI bleed, back pain, seizure, CVA, palpatations, mental health)? @ -Differential Chest Pain: Stable Angina, Unstable Angina, STEMI, NSTEMI Aortic Dissection, Pneumothorax, Musculoskeletal, Esophageal Spasm GERD, Cholecystitis, Pancreatitis, Zoster, this is not meant to be an all-inclusive list. EKG interpreted by me (3pts min.). @ -See above X-rays interpreted by me (1pt min.). @ -None done CT interpreted by me (1pt min.). @ -No acute processes U/S interpreted by me (1pt. min.). @ -None done What testing was considered but not performed or refused? (CT, X-rays, U/S, labs)? Why? @ -See above What meds were considered but not given or refused? Why? @ -See above Did you discuss the management of the patient with other professionals (professionals i.e. , PA, [employer], lab, RT, psych nurse, social media job titles, real estate lawyer, teacher, search and rescue officer, dependency case manager)? Give summary @ -Discussed with [facility] for admission Was smoking cessation discussed for >3mins.? @ -No Was critical care preformed (if so, how long)? @ -No Were there social determinants of health that impacted care today? How? (Homelessness, low income, unemployed, alcoholism, drug addiction, transportation, low edu. Level, literacy, decrease access to med. care, fpc, rehab)? @ -No Was there de-escalation of care discussed even if they declined (Discuss DNR or withdrawal of care, Hospice)? DNR status @ -No What co-morbidities impacted this encounter? (DM, HTN, Smoking, COPD, CAD, Ca ncer, CVA, ARF, Chemo, Hep., AIDS, mental health diagnosis, sleep apnea, morbid obesity)? @ -Obesity, fibromyalgia Was patient admitted / discharged? Hospital course, mention meds given and route, prescriptions, significant lab abnormalities, going to OR and other pertinent info. @ -52-year-old female presents emergency department with atypical chest pain with typical features. Initially clinical presentation suspicious for acute aortic dissection. CT angiography of the chest did not show any evidence of dissection. No other acute, acute processes noted. Abdomen evaluation was obtained. Cardiac enzymes normal. Rest of labs unremarkable. Patient reevaluated at 6:24 AM still complaining of some chest discomfort. Patient received aspirin by prehospital providers. Patient be admitted to observation for inpatient chest pain evaluation and treatment. Undiagnosed new problem with uncertain prognosis? @ -No Drug Therapy requiring intensive monitoring for toxicity (Heparin, Nitro, Insulin, Cardizem)? @ -No Were any procedures done? @ -No Diagnosis/symptom? Acute, or Chronic, or Acute on Chronic? Uncomplicated (without systemic symptoms) or Complicated (systemic symptoms)? @ -1. Acute chest pain Side effects of treatment? @ -No Exacerbation, Progression, or Severe Exacerbation? @ -No Poses a threat to life or bodily function? How? (Chest pain, [place], [place], pneumonia, PE, COPD, DKA, ARF, appy, cholecystitis, CVA, Diverticulitis, Homicidal, Suicidal, threat to staff... and all critical care pts) @ -Yes - Related Data Home Medications Medication Instructions Recorded Confirmed ARIPiprazole [Abilify] 10 mg PO DAILY 11/15/22 12/27/22 Albuterol Sulfate [Albuterol 2 puff INHALATION RT-Q6H PRN 11/15/22 12/27/22 Sulfate Hfa] Amitriptyline HCl [Elavil] 25 mg PO HS 11/15/22 12/27/22 Apixaban [Eliquis] 5 mg PO BID 11/15/22 12/27/22 Aspirin EC [Ecotrin Low Dose] 81 mg PO DAILY 11/15/22 12/27/22 Atorvastatin Calcium [Lipitor] 40 mg PO DAILY 11/15/22 12/27/22 Dulaglutide [Trulicity] 3 mg SQ TH 11/15/22 12/27/22 Erenumab-Aooe [Aimovig 70 mg SQ QMONTHLY 11/15/22 12/27/22 Autoinjector] Insulin Aspart [NovoLOG Flexpen] 17 units SQ AC-TID 11/15/22 12/27/22 Insulin Aspart [NovoLOG Flexpen] See Protocol SQ AC-TID 11/15/22 12/27/22 Magnesium Oxide 400 mg PO DAILY 11/15/22 12/27/22 Montelukast Sodium [Singulair] 10 mg PO HS 11/15/22 12/27/22 Multivitamins, Thera [Multivitamin 1 tab PO DAILY 11/15/22 12/27/22 (formulary)] Nitroglycerin Sl Tabs [Nitrostat] 0.4 mg SUBLINGUAL Q5M PRN 11/15/22 12/27/22 Omeprazole 40 mg PO BID 11/15/22 12/27/22 Ranolazine [Ranolazine ER] 500 mg PO BID 11/15/22 12/27/22 Topiramate [Topamax] 100 mg PO BID 11/15/22 12/27/22 clonazePAM [KlonoPIN] 1 mg PO BID 11/15/22 12/27/22 dilTIAZem HCL [dilTIAZem [id number] 240 mg PO DAILY 11/15/22 12/27/22 ER (CD)] methocarbamoL [Robaxin] 500 mg PO TID PRN 11/15/22 12/27/22 Isosorbide Mononitrate ER [Imdur] 60 mg PO DAILY 12/08/22 12/27/22 HYDROcodone/APAP 5-325MG [[place] 1 tab PO Q6HR PRN 12/27/22 12/27/22 5-325] Previous Rx's Medication Instructions Recorded DULoxetine HCL [Cymbalta] 90 mg PO HS cap 12/29/22 Insulin Detemir [Levemir Flextouch 20 units SQ HS #0 12/29/22 Pen] Allergies Allergy/AdvReac Type Severity Reaction Status Date / Time trimethobenzamide Allergy Rash/Hives Verified 01/23/23 18:25 [facility] vancomycin Allergy Rash/Hives Verified 01/23/23 18:25 Review of Systems ROS Statement: Those systems with pertinent positive or pertinent negative responses have been documented in the HPI. ROS Other: All systems not noted in ROS Statement are negative. Past Medical History Past Medical History: CVA/TIA, Diabetes Mellitus, Hyperlipidemia, Hypertension Additional Past Medical History / Comment(s): fibomyalgia History of Any Multi-Drug Resistant Organisms: None Reported, C-DIFF Date of last positivie culture/infection: 2019 Past Surgical History: Appendectomy, Cholecystectomy, Hysterectomy, Orthopedic Surgery Past Psychological History: Bipolar, Depression Smoking Status: Never smoker Past Alcohol Use History: Occasional Past Drug Use History: Marijuana Course Vital Signs 02/03/23 04:56 Temperature 98.6 F Pulse Rate 78 Respiratory 16 Rate Blood Pressure 111/62 O2 Sat by Pulse 100 Oximetry Medical Decision Making - Lab Data Result diagrams: 02/03/23 05:00 02/03/23 05:00 Lab Results 02/03/23 02/03/23 02/03/23 Range/Units 05:00 05:00 05:00 WBC 3.5 L (3.8-10.6) k/uL RBC 4.25 (3.80-5.40) m/uL Hgb 12.5 (11.4-16.0) gm/dL Hct 37.6 (34.0-46.0) % MCV 88.5 (80.0-100.0) fL MCH 29.5 (25.0-35.0) pg MCHC 33.3 (31.0-37.0) g/dL RDW 13.2 (11.5-15.5) % Plt Count 203 (150-450) k/uL MPV 8.3 Neutrophils % 51 % Lymphocytes % 36 % Monocytes % 6 % Eosinophils % 3 % Basophils % 1 % Neutrophils # 1.8 (1.3-7.7) k/uL Lymphocytes # 1.3 (1.0-4.8) k/uL Monocytes # 0.2 (0-1.0) k/uL Eosinophils # 0.1 (0-0.7) k/uL Basophils # 0.0 (0-0.2) k/uL PT 9.9 (9.0-12.0) sec INR 0.9 (<1.2) APTT 27.5 (22.0-30.0) sec Sodium 140 (137-145) mmol/L Potassium 3.8 (3.5-5.1) mmol/L Chloride 108 H (98-107) mmol/L Carbon Dioxide 25 (22-30) mmol/L Anion Gap 7 mmol/L BUN 11 (7-17) mg/dL Creatinine 0.65 (0.52-1.04) mg/dL Est GFR (CKD-EPI)AfAm >90 (>60 ml/min/1.73 sqM) Est GFR (CKD-EPI)NonAf >90 (>60 ml/min/1.73 sqM) Glucose 230 H (74-99) mg/dL Calcium 9.0 (8.4-10.2) mg/dL Total Bilirubin 0.3 (0.2-1.3) mg/dL AST 23 (14-36) U/L ALT 30 (4-34) U/L Alkaline Phosphatase 111 (38-126) U/L Troponin I (0.000-0.034) ng/mL Total Protein 5.8 L (6.3-8.2) g/dL Albumin 3.6 (3.5-5.0) g/dL 02/03/23 Range/Units 05:00 WBC (3.8-10.6) k/uL RBC (3.80-5.40) m/uL Hgb (11.4-16.0) gm/dL Hct (34.0-46.0) % MCV (80.0-100.0) fL MCH (25.0-35.0) pg MCHC (31.0-37.0) g/dL RDW (11.5-15.5) % Plt Count (150-450) k/uL MPV Neutrophils % % Lymphocytes % % Monocytes % % Eosinophils % % Basophils % % Neutrophils # (1.3-7.7) k/uL Lymphocytes # (1.0-4.8) k/uL Monocytes # (0-1.0) k/uL Eosinophils # (0-0.7) k/uL Basophils # (0-0.2) k/uL PT (9.0-12.0) sec INR (<1.2) APTT (22.0-30.0) sec Sodium (137-145) mmol/L Potassium (3.5-5.1) mmol/L Chloride (98-107) mmol/L Carbon Dioxide (22-30) mmol/L Anion Gap mmol/L BUN (7-17) mg/dL Creatinine (0.52-1.04) mg/dL Est GFR (CKD-EPI)AfAm (>60 ml/min/1.73 sqM) Est GFR (CKD-EPI)NonAf (>60 ml/min/1.73 sqM) Glucose (74-99) mg/dL Calcium (8.4-10.2) mg/dL Total Bilirubin (0.2-1.3) mg/dL AST (14-36) U/L ALT (4-34) U/L Alkaline Phosphatase (38-126) U/L Troponin I <0.012 (0.000-0.034) ng/mL Total Protein (6.3-8.2) g/dL Albumin (3.5-5.0) g/dL Disposition Clinical Impression: Chest pain Disposition: ADMITTED IP TO THIS [facility] Condition: Fair Referrals: Brayden Valdovinos DO [Primary Care Provider] - 1-2 days Decision Time: 06:25
[2023-02-03 05:43] LABS: Basophils % (A) 1 %; Eosinophils # (A) 0.1 k/uL (0-0.7); Eosinophils % (A) 3 %; HCT 37.6 % (34.0-46.0); HGB 12.5 gm/dL (11.4-16.0); Lymphocytes # (A) 1.3 k/uL (1.0-4.8); Lymphocytes % (A) 36 %; MCH 29.5 pg (25.0-35.0); MCHC 33.3 g/dL (31.0-37.0); MCV 88.5 fL (80.0-100.0); Mean Platelet Volume 8.3; Monocytes # (A) 0.2 k/uL (0-1.0); Monocytes % (A) 6 %; Neutrophils # (A) 1.8 k/uL (1.3-7.7); Neutrophils % (A) 51 %; Platelet Count 203 k/uL (150-450); RBC 4.25 m/uL (3.80-5.40); RDW 13.2 % (11.5-15.5); WBC 3.5 k/uL (3.8-10.6)
[2023-02-03 05:47] LABS: INR 0.9 (<1.2); Partial Thromboplastin Time 27.5 sec (22.0-30.0); Prothrombin Time 9.9 sec (9.0-12.0)
[2023-02-03 05:50] LABS: ALT 30 U/L (4-34); AST 23 U/L (14-36); African American GFR (CKD) >90 (>60 ml/min/1.73 sqM); Albumin 3.6 g/dL (3.5-5.0); Alkaline Phosphatase 111 U/L (38-126); Anion Gap 7 mmol/L; Blood Urea Nitrogen 11 mg/dL (7-17); Carbon Dioxide 25 mmol/L (22-30); Chloride 108 mmol/L (98-107); Glucose 230 mg/dL (74-99); Non-African American GFR(CKD) >90 (>60 ml/min/1.73 sqM); Potassium 3.8 mmol/L (3.5-5.1); Sodium 140 mmol/L (137-145); Total Bilirubin 0.3 mg/dL (0.2-1.3); Total Protein 5.8 g/dL (6.3-8.2)
[2023-02-03] MEDS ORDERED: HYDROcodone/APAP 5-325MG 1 EACH TAB PO STA (05:51)
--- NOTE | 2023-02-03 06:00 | CT ---
EXAMINATION TYPE: CT angio thor/abd pel aorta DATE OF EXAM: 02/03/2023 COMPARISON: CT scan 01/23/2023 HISTORY: chest pain that wraps around to shoulder. h/o TIA/stroke. CT DLP: 2540.7 mGycm Automated exposure control for dose reduction was used. CONTRAST: Performed with IV Contrast, patient injected with 100 mL of Isovue 370. Images obtained from the thoracic inlet to the floor the pelvis with IV contrast. There are Three-D p ostprocessed images. There is mild subsegmental atelectasis in the posterior lung alexander. No pleural effusion. Heart size is normal. No pericardial effusion. There are no hilar masses. There is no evidence of filling defect in the pulmonary arteries. There is no mediastinal adenopathy. Thoracic aorta is intact. Liver spleen pancreas stomach appear intact. There are clips from cholecystectomy. The bile ducts are not dilated. There is no adrenal mass. Kidneys have normal size and contour. No hydronephrosis. Ureters are not di lated. No retroperitoneal adenopathy. There are clips from appendectomy. The bladder distends smoothl y. No inguinal hernia. No free fluid in the pelvis. There is no mesenteric edema. No ascites or free air. No sign of a bowel obstruction. There is arterial flow in the abdominal aorta and the celiac artery and superior mesenteric artery. T here is arterial flow in both renal arteries. There is normal contrast opacification of the iliac and femoral arteries. No evidence of hemodynamic stenosis. No arterial aneurysm or dissection. There is arterial flow in the inferior mesenteric artery. IMPRESSION: There is some minimal atherosclerotic vascular calcification. No evidence of arterial aneurysm or dis section. No evidence of hemodynamic arterial stenosis. No evidence of pulmonary embolism.
[2023-02-03] MEDS ORDERED: NITROGLYCERIN SL TABS 0.4 MG TAB SUBLINGUAL PRN (06:21)
[2023-02-03 06:55] LABS: Glucose,Whole Blood 36 mg/dL (70-110)
[2023-02-03 07:05] LABS: Glucose,Whole Blood 44 mg/dL (70-110)
[2023-02-03 07:17] LABS: Glucose,Whole Blood 78 mg/dL (70-110)
--- NOTE | 2023-02-03 08:02 | P.CRDCN ---
History of Present Illness Consult date: 02/03/23 Chief complaint: chest pain History of present illness: The patient is a pleasant 52-year-old female patient who sees Dr. Loera regularly with a past medical history significant for diabetes and hypertension and history of TIA as well as obesity and significant family history of cardiac disease presented to the emergency department complaining of chest discomfort. She was in her usual state of health until last night when she woke up from sleep complaining of discomfort in the middle of the chest as a dull kind of discomfort with radiation to both shoulders and subsequently radiation to her jaw. It was associated with shortness of breath but no syncope or presyncope and no sweating and no dizziness or lightheadedness and no feeling of heart racing or fluttering. She presented to the emergency department because of chest discomfort lasted more than half an hour. She underwent a workup including EKG showing sinus rhythm with nonspecific ST and T wave abnormalities in the inferior leads and also she underwent enzymes was only first set of troponin came in to be unremarkable. For some reason she ended having computed tomography scan of the chest and that showed no acute abnormalities. Currently the patient is chest pain-free. She was seen by our service back in October 2022 where at that point she underwent an echo was technically very difficult but overall the ejection fraction was normal and the intracardiac valves were not well visualized. She also underwent dobutamine stress echocardiogram at that point and that came in to be unremarkable. Currently the patient is chest pain-free. Examination is remarkable for stable vital signs with a regular rhythm and clear breathing sounds bilaterally and no lower extremities edema noted Assessment Chest discomfort. The patient is chest pain-free at this point Mildly abnormal EKG with nonspecific ST and T wave abnormalities where not exist on her prior EKG Multiple risk factors including diabetes and hypertension and dyslipidemia Significant family history of coronary artery disease History of TIA Plan Rule out acute coronary event. Follow-up with serial cardiac enzymes Continue the rest of the current medical regimen at this point No need to repeat the echo in the light of recent echo as described above Further recommendation to follow Past Medical History Past Medical History: CVA/TIA, Diabetes Mellitus, Hyperlipidemia, Hypertension Additional Past Medical History / Comment(s): fibomyalgia History of Any Multi-Drug Resistant Organisms: None Reported, C-DIFF Date of last positivie culture/infection: 2019 Past Surgical History: Appendectomy, Cholecystectomy, Hysterectomy, Orthopedic Surgery Past Psychological History: Bipolar, Depression Smoking Status: Never smoker Past Alcohol Use History: Occasional Past Drug Use History: Marijuana Medications and Allergies Home Medications Medication Instructions Recorded Confirmed Type ARIPiprazole [Abilify] 10 mg PO DAILY 11/15/22 02/03/23 History Albuterol Sulfate [Albuterol 2 puff INHALATION RT-Q6H PRN 11/15/22 02/03/23 History Sulfate Hfa] Amitriptyline HCl [Elavil] 25 mg PO HS 11/15/22 02/03/23 History Apixaban [Eliquis] 5 mg PO BID 11/15/22 02/03/23 History Aspirin EC [Ecotrin Low Dose] 81 mg PO DAILY 11/15/22 02/03/23 History Atorvastatin Calcium [Lipitor] 40 mg PO DAILY 11/15/22 02/03/23 History Dulaglutide [Trulicity] 3 mg SQ TH 11/15/22 02/03/23 History Erenumab-Aooe [Aimovig 70 mg SQ QMONTHLY 11/15/22 02/03/23 History Autoinjector] Insulin Aspart [NovoLOG Flexpen] 17 units SQ AC-TID 11/15/22 02/03/23 History Insulin Aspart [NovoLOG Flexpen] See Protocol SQ AC-TID 11/15/22 02/03/23 History Magnesium Oxide 400 mg PO DAILY 11/15/22 02/03/23 History Montelukast Sodium [Singulair] 10 mg PO HS 11/15/22 02/03/23 History Multivitamins, Thera [Multivitamin 1 tab PO DAILY 11/15/22 02/03/23 History (formulary)] Nitroglycerin Sl Tabs [Nitrostat] 0.4 mg SUBLINGUAL Q5M PRN 11/15/22 02/03/23 History Omeprazole 40 mg PO BID 11/15/22 02/03/23 History Ranolazine [Ranolazine ER] 500 mg PO BID 11/15/22 02/03/23 History Topiramate [Topamax] 100 mg PO BID 11/15/22 02/03/23 History clonazePAM [KlonoPIN] 1 mg PO BID 11/15/22 02/03/23 History dilTIAZem HCL [dilTIAZem [id number] 240 mg PO DAILY 11/15/22 02/03/23 History ER (CD)] methocarbamoL [Robaxin] 500 mg PO TID PRN 11/15/22 02/03/23 History Isosorbide Mononitrate ER [Imdur] 60 mg PO DAILY 12/08/22 02/03/23 History Insulin Detemir [Levemir Flextouch 20 units SQ HS #0 12/29/22 02/03/23 Rx Pen] DULoxetine HCL [Cymbalta] 30 mg PO HS 02/03/23 02/03/23 History DULoxetine HCL [Cymbalta] 60 mg PO HS 02/03/23 02/03/23 History Allergies Allergy/AdvReac Type Severity Reaction Status Date / Time trimethobenzamide Allergy Rash/Hives Verified 02/03/23 07:43 [From [facility]] vancomycin Allergy Rash/Hives Verified 02/03/23 07:43 Physical Exam Vitals: Vital Signs Temp Pulse Resp BP Pulse Ox 02/03/23 06:27 73 16 107/49 95 02/03/23 04:56 98.6 F 78 16 111/62 100 Intake and Output 02/02/23 02/03/23 02/03/23 22:59 06:59 14:59 Other: Weight 108.862 kg Results 02/03/23 05:00 02/03/23 05:00 Cardiac Enzymes 02/03/23 02/03/23 Range/Units 05:00 05:00 AST 23 (14-36) U/L Troponin I <0.012 (0.000-0.034) ng/mL Coagulation 02/03/23 Range/Units 05:00 PT 9.9 (9.0-12.0) sec APTT 27.5 (22.0-30.0) sec CBC 02/03/23 Range/Units 05:00 WBC 3.5 L (3.8-10.6) k/uL RBC 4.25 (3.80-5.40) m/uL Hgb 12.5 (11.4-16.0) gm/dL Hct 37.6 (34.0-46.0) % Plt Count 203 (150-450) k/uL Comprehensive Metabolic Panel 02/03/23 Range/Units 05:00 Sodium 140 (137-145) mmol/L Potassium 3.8 (3.5-5.1) mmol/L Chloride 108 H (98-107) mmol/L Carbon Dioxide 25 (22-30) mmol/L BUN 11 (7-17) mg/dL Creatinine 0.65 (0.52-1.04) mg/dL Glucose 230 H (74-99) mg/dL Calcium 9.0 (8.4-10.2) mg/dL AST 23 (14-36) U/L ALT 30 (4-34) U/L Alkaline Phosphatase 111 (38-126) U/L Total Protein 5.8 L (6.3-8.2) g/dL Albumin 3.6 (3.5-5.0) g/dL Current Medications Generic Name Dose Route Start Last Admin Trade Name Freq PRN Reason Stop Dose Admin Aspirin 325 mg 02/04/23 09:00 Aspirin 325 Mg Tab PO 02/04/23 09:01 DAILY FRANCISCO JAVIER Nitroglycerin 0.4 mg 02/03/23 06:21 Nitroglycerin Sl Tabs 0.4 Mg Tab SUBLINGUAL Q5M PRN Chest Pain Intake and Output 02/02/23 02/03/23 02/03/23 22:59 06:59 14:59 Other: Weight 108.862 kg 02/03/23 05:00 02/03/23 05:00
[2023-02-03 08:05] LABS: Glucose,Whole Blood 94 mg/dL (70-110)
[2023-02-03] MEDS: ASPIRIN 325 MG TAB PO SCH (10:10)
[2023-02-03 12:04] LABS: Glucose,Whole Blood 115 mg/dL (70-110)
[2023-02-03] MEDS ORDERED: DEXTROSE 50% SYRINGE 50 ML IVP PRN ×2 (12:18)
--- NOTE | 2023-02-03 12:32 | P.HPIM ---
History of Present Illness Is a pleasant 52 years old female with past medical history of diabetes mellitus, hypertension, hyperlipidemia, CVA Patient presents because of chest pain of one-day duration the middle of the chest radiating to the back about 7/10 associated with some exertional dyspnea No coughing Patient complains from lower abdominal pain has been going on for 3 months and she was planned to have colonoscopy with Dr. Oglesby on 03/23 as she states. Also she vomited once yesterday but no more vomiting. Patient says she has no problem with bowel movement. Patient has been seen previously for her abdominal pain and ileus by surgery team She denies any current urinary symptoms. No dizziness weakness or numbness but she has headache for her migraine which looks controlled now She denies smoking, alcohol occasionally, she uses marijuana for back pain. She is hemodynamically stable Labs showing mild leukopenia of 3.5, rest of CBC is unremarkable. Low glucose at 36 and 44, currently improved 115 BMP and liver enzymes are unremarkable, troponins [address] are negative[address] aorta CT: There is minimal atherosclerotic vascular calcification. No evidence of artery or aneurysm or dissection. No evidence of hemodynamic arterial stenosis. No evidence of pulmonary embolism EKG showing normal sinus rhythm at [address]-T changes Review of Systems Review of systems CONSTITUTIONAL: No fever, no malaise, no fatigue. HEENT: No recent visual problems or hearing problems. Denied any sore throat. CARDIOVASCULAR: No orthopnea, PND, no palpitations, no syncope. PULMONARY: No shortness of breath, no cough, no hemoptysis. GASTROINTESTINAL: No diarrhea, no nausea, no vomiting, no abdominal pain. Normoactive bowel sounds. NEUROLOGICAL: No headaches, no weakness, no numbness. HEMATOLOGICAL: Denies any bleeding or petechiae. GENITOURINARY: Denies any burning micturition, frequency, or urgency. MUSCULOSKELETAL/RHEUMATOLOGICAL: Denies any joint pain, swelling, or any muscle pain. ENDOCRINE: Denies any polyuria or polydipsia. Past Medical History Past Medical History: CVA/TIA, Diabetes Mellitus, Hyperlipidemia, Hypertension Additional Past Medical History / Comment(s): fibomyalgia History of Any Multi-Drug Resistant Organisms: None Reported, C-DIFF Date of last positivie culture/infection: 2019 Past Surgical History: Appendectomy, Cholecystectomy, Hysterectomy, Orthopedic Surgery Past Psychological History: Bipolar, Depression Smoking Status: Never smoker Past Alcohol Use History: Occasional Past Drug Use History: Marijuana Medications and Allergies Home Medications Medication Instructions Recorded Confirmed Type ARIPiprazole [Abilify] 10 mg PO DAILY 11/15/22 02/03/23 History Albuterol Sulfate [Albuterol 2 puff INHALATION RT-Q6H PRN 11/15/22 02/03/23 History Sulfate Hfa] Amitriptyline HCl [Elavil] 25 mg PO HS 11/15/22 02/03/23 History Apixaban [Eliquis] 5 mg PO BID 11/15/22 02/03/23 History Aspirin EC [Ecotrin Low Dose] 81 mg PO DAILY 11/15/22 02/03/23 History Atorvastatin Calcium [Lipitor] 40 mg PO DAILY 11/15/22 02/03/23 History Dulaglutide [Trulicity] 3 mg SQ TH 11/15/22 02/03/23 History Erenumab-Aooe [Aimovig 70 mg SQ QMONTHLY 11/15/22 02/03/23 History Autoinjector] Insulin Aspart [NovoLOG Flexpen] 17 units SQ AC-TID 11/15/22 02/03/23 History Insulin Aspart [NovoLOG Flexpen] See Protocol SQ AC-TID 11/15/22 02/03/23 Hi story Magnesium Oxide 400 mg PO DAILY 11/15/22 02/03/23 History Montelukast Sodium [Singulair] 10 mg PO HS 11/15/22 02/03/23 History Multivitamins, Thera [Multivitamin 1 tab PO DAILY 11/15/22 02/03/23 History (formulary)] Nitroglycerin Sl Tabs [Nitrostat] 0.4 mg SUBLINGUAL Q5M PRN 11/15/22 02/03/23 History Omeprazole 40 mg PO BID 11/15/22 02/03/23 History Ranolazine [Ranolazine ER] 500 mg PO BID 11/15/22 02/03/23 History Topiramate [Topamax] 100 mg PO BID 11/15/22 02/03/23 History clonazePAM [KlonoPIN] 1 mg PO BID 11/15/22 02/03/23 History dilTIAZem HCL [dilTIAZem [id number] 240 mg PO DAILY 11/15/22 02/03/23 History ER (CD)] methocarbamoL [Robaxin] 500 mg PO TID PRN 11/15/22 02/03/23 History Isosorbide Mononitrate ER [Imdur] 60 mg PO DAILY 12/08/22 02/03/23 History Insulin Detemir [Levemir Flextouch 20 units SQ HS #0 12/29/22 02/03/23 Rx Pen] DULoxetine HCL [Cymbalta] 30 mg PO HS 02/03/23 02/03/23 History DULoxetine HCL [Cymbalta] 60 mg PO HS 02/03/23 02/03/23 History Allergies Allergy/AdvReac Type Severity Reaction Status Date / Time trimethobenzamide Allergy Rash/Hives Verified 02/03/23 07:43 [From [facility]] vancomycin Allergy Rash/Hives Verified 02/03/23 07:43 Physical Exam Vitals: Vital Signs Temp Pulse Resp BP Pulse Ox 02/03/23 06:27 73 16 107/49 95 02/03/23 04:56 98.6 F 78 16 111/62 100 Intake and Output 02/02/23 02/03/23 02/03/23 22:59 06:59 14:59 Other: Weight 108.862 kg GENERAL: The patient is alert and oriented x3, not in any acute distress. Well developed, well nourished. HEENT: Pupils are round and equally reacting to light. EOMI. No scleral icterus. No conjunctival pallor. Normocephalic, atraumatic. No pharyngeal erythema. No thyromegaly. CARDIOVASCULAR: S1 and S2 present. No murmurs, rubs, or gallops. PULMONARY: Chest is clear to auscultation, no wheezing or crackles. ABDOMEN: Soft, nontender, nondistended, normoactive bowel sounds. No palpable organomegaly. MUSCULOSKELETAL: No joint swelling or deformity. EXTREMITIES: No cyanosis, clubbing, or pedal edema. NEUROLOGICAL: Gross neurological examination did not reveal any focal deficits. SKIN: No rashes. no petechiae. Results CBC & Chem 7: 02/03/23 05:00 02/03/23 05:00 Labs: Abnormal Lab Results - Last 24 Hours (Table) 02/03/23 02/03/23 02/03/23 Range/Units 05:00 05:00 06:53 WBC 3.5 L (3.8-10.6) k/uL Chloride 108 H (98-107) mmol/L Glucose 230 H (74-99) mg/dL POC Glucose (mg/dL) 36 L (70-110) mg/dL Total Protein 5.8 L (6.3-8.2) g/dL 02/03/23 02/03/23 Range/Units 07:04 11:39 WBC (3.8-10.6) k/uL Chloride (98-107) mmol/L Glucose (74-99) mg/dL POC Glucose (mg/dL) 44 L 115 H (70-110) mg/dL Total Protein (6.3-8.2) g/dL Assessment and Plan Assessment: Chest pain, rule out cardiac causes Diabetes mellitus, with hypoglycemia present on admission Chronic abdominal pain in the lower abdomen about 3 months planned for colonoscopy as an outpatient Hypertension Hyperlipidemia History of CVA History of migraine Plan: Cardiology consult Serial troponin Continue with insulin sliding scale and check hemoglobin A1c While keeping holding home dose of insulin. at home she was taken Levemir 20 units daily at bedtime and NovoLog 17 units with meals last from the CT Check KUB Labs and medication were reviewed.. Continue same treatment. Continue with symptomatic treatment. Resume home medication. Monitor labs and vitals. DVT and GI prophylaxis. Further recommendations as per clinical course of the patient DVT prophylaxis: eliquis GI Prophylaxis: Pepcid Prognosis is guarded
[2023-02-03] MEDS: INSULIN ASPART (NovoLOG) 100 UNIT/ML VIAL SQ SCH ×3 (12:45→21:17)
--- NOTE | 2023-02-03 13:22 | XR ---
EXAMINATION TYPE: XR KUB DATE OF EXAM: 02/03/2023 12:51 PM INDICATION: Patient age:Female; 52 years old; Reason for study: abd pain and vomiting; COMPARISON: 02/03/2023 TECHNIQUE: One radiographic view of the abdomen was obtained. FINDINGS: Right upper quadrant cholecystectomy clips excreted IV contrast is seen within the urinary bladder. The bowel gas pattern is nonspecific without dilated loops of small or large bowel. There is no evidence for organomegaly or pneumoperitoneum. The osseous structures are intact. No abnormal c alcifications are present. Fecal material and gas are demonstrated throughout the colon and rectum. IMPRESSION: Nonspecific bowel gas pattern without radiographic evidence for acute process.
[2023-02-03 17:28] LABS: Glucose,Whole Blood 198 mg/dL (70-110)
[2023-02-03 20:20] LABS: Glucose,Whole Blood 263 mg/dL (70-110)
[2023-02-03] MEDS: FAMOTIDINE 20 MG/2 ML VIAL IV SCH (21:16)
[2023-02-03] MEDS: TOPIRAMATE 100 MG TAB PO SCH (21:17)
[2023-02-03] MEDS: DULoxetine HCL 30 MG CAPSULE.DR PO SCH (21:17)
[2023-02-03] MEDS: AMITRIPTYLINE HCL 25 MG TAB PO SCH (21:17)
[2023-02-03] MEDS: MONTELUKAST 10 MG TAB PO SCH (21:17)
[2023-02-03] MEDS: DULoxetine HCL 60 MG CAPSULE.DR PO SCH (21:17)
[2023-02-03] MEDS: APIXABAN 5 MG TAB PO SCH (21:17)
[2023-02-03] MEDS: RANOLAZINE 500 MG TAB.ER.12H PO SCH (21:17)
[2023-02-03] MEDS: clonazePAM 1 MG TAB PO SCH (22:02)
[2023-02-03] MEDS: HYDROcodone/APAP 5-325MG 1 EACH TAB PO PRN (22:03)
[2023-02-04 06:03] LABS: Glucose,Whole Blood 350 mg/dL (70-110)
[2023-02-04] MEDS: INSULIN ASPART (NovoLOG) 100 UNIT/ML VIAL SQ SCH ×5 (06:20→22:03)
--- NOTE | 2023-02-04 08:43 | P.PN ---
Subjective Progress Note Date: 02/04/23 Principal diagnosis: Chest pain/abdominal pain The patient is a pleasant 52-year-old female patient who sees Dr. Loera regularly with a past medical history significant for diabetes and hypertension and history of TIA as well as obesity and significant family history of cardiac disease presented to the emergency department complaining of chest discomfort. She was in her usual state of health until last night when she woke up from sleep complaining of discomfort in the middle of the chest as a dull kind of discomfort with radiation to both shoulders and subsequently radiation to her jaw. It was associated with shortness of breath but no syncope or presyncope and no sweating and no dizziness or lightheadedness and no feeling of heart racing or fluttering. She presented to the emergency department because of chest discomfort lasted more than half an hour. She underwent a workup including EKG showing sinus rhythm with nonspecific ST and T wave abnormalities in the inferior leads and also she underwent enzymes was only first set of troponin came in to be unremarkable. For some reason she ended having computed tomography scan of the chest and that showed no acute abnormalities. Currently the patient is chest pain-free. She was seen by our service back in October 2022 where at that point she underwent an echo was technically very difficult but overall the ejection fraction was normal and the intracardiac valves were not well visualized. She also underwent dobutamine stress echocardiogram at that point and that came in to be unremarkable. Currently the patient is chest pain-free. Examination is remarkable for stable vital signs with a regular rhyt hm and clear breathing sounds bilaterally and no lower extremities edema noted February 042022 The patient was seen and evaluated this morning. She has no pain in the chest whatsoever at this point and she has been up and around walking was no discomfort in the pain. Now she is complaining of abdominal discomfort and as a matter of fact her abdomen is tender on examination. Surgical consult was placed and the patient is in process to be seen. She underwent an abdominal x- ray came in to be unremarkable but she is going to undergo further evaluation from that standpoint overview. She was ruled out for acute coronary syndrome. Please note that the patient underwent cardiac workup in October 2022 including an echo and stress test and both came in to be unremarkable. From the cardiac standpoint of view, I would hold on any cardiac workup at this point though the patient have workup regarding the abdominal discomfort. On examination she has overall stable vital signs with regular rhythm and clear breathing sounds bilaterally and abdominal tenderness on examination and no lower except his edema noted. Assessment Chest discomfort which has resolved. Acute coronary syndrome was ruled out Abdominal discomfort. The patient is in process of having a workup regarding that Multiple comorbidities including hypertension and dyslipidemia and history of TIA Plan Stress test and echocardiogram from October 2022 where unremarkable No need for any further cardiac workup at this point in the light of the abdominal discomfort which is getting workup Follow-up with the patient on when necessary case Objective - Vital Signs Vital signs: Vital Signs Temp 97.6 F 02/04/23 08:00 Pulse 87 02/04/23 08:00 Resp 16 02/04/23 08:00 BP 146/86 02/04/23 08:00 Pulse Ox 94 L 02/04/23 08:00 FiO2 Intake & Output 02/03/23 02/04/23 02/04/23 18:59 06:59 18:59 Intake Total 480 Balance 480 Weight 108.862 kg Intake: Oral 480 Other: Voiding Method Toilet # Voids 1 2 - Labs CBC & Chem 7: 02/03/23 05:00 02/03/23 05:00 Labs: Abnormal Lab Results - Last 24 Hours (Table) 02/03/23 02/03/23 02/03/23 Range/Units 05:00 11:39 17:27 POC Glucose (mg/dL) 115 H 198 H (70-110) mg/dL Hemoglobin A1c 8.6 H (0.0-6.0) % 02/03/23 02/04/23 Range/Units 20:19 06:01 POC Glucose (mg/dL) 263 H 350 H (70-110) mg/dL Hemoglobin A1c (0.0-6.0) %
[2023-02-04] MEDS ORDERED: ASPIRIN 325 MG TAB PO SCH (09:00)
[2023-02-04] MEDS: HYDROcodone/APAP 5-325MG 1 EACH TAB PO PRN ×2 (09:17→15:57)
[2023-02-04] MEDS: FAMOTIDINE 20 MG/2 ML VIAL IV SCH ×2 (09:18→22:02)
[2023-02-04] MEDS: clonazePAM 1 MG TAB PO SCH ×2 (09:18→22:01)
[2023-02-04] MEDS: ATORVASTATIN 40 MG TAB PO SCH (09:18)
[2023-02-04] MEDS: ISOSORBIDE MONONITRATE ER 60 MG TAB.ER.24H PO SCH (09:18)
[2023-02-04] MEDS: ASPIRIN 325 MG TAB PO SCH (09:18)
[2023-02-04] MEDS: ARIPiprazole 10 MG TAB PO SCH (09:18)
[2023-02-04] MEDS: RANOLAZINE 500 MG TAB.ER.12H PO SCH ×2 (09:18→22:04)
[2023-02-04] MEDS: TOPIRAMATE 100 MG TAB PO SCH ×2 (09:18→22:04)
[2023-02-04] MEDS: APIXABAN 5 MG TAB PO SCH (09:18)
[2023-02-04] MEDS: DILTIAZEM CD 240 MG CAP.ER.24H PO SCH (09:18)
[2023-02-04 10:00] LABS: Chol/HDL Ratio 3.14 Ratio; LDL Cholesterol,Calculated 86.2 mg/dL (0.0-131.0)
[2023-02-04] MEDS: IOPAMIDOL CONTRAST (ORAL USE) VIAL PO PRN ×2 (11:31→12:29)
[2023-02-04 12:17] LABS: Glucose,Whole Blood 298 mg/dL (70-110)
--- NOTE | 2023-02-04 12:24 | P.GSCN ---
History of Present Illness Consult date: 02/04/23 History of present illness: CHIEF COMPLAINT: Lower abdominal pain HISTORY OF PRESENT ILLNESS: This is a 52-year-old female who presented to the hospital with complaints of chest pain. She also reports having pain across her lower abdomen for the last 3 months. She is scheduled for a colonoscopy on March [address] Oglesby. Patient reports constant nausea. She has been having bowel movements that are soft and formed. Patient did report increase in abdominal pain after the bowel movement. Shows also report having issues with anal leakage. She does report occasionally having blood in the stools. The last time she had blood in stools last week Tuesday or Tuesday. Patient was had history of ileus, C. diff colitis and has had adhesions. 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 The last 2 years she has not had any surgery. Her past surgical history also includes appendectomy, cholecystectomy and hysterectomy. She is on Eliquis for Afib. Patient seen and examined with Dr. uriostegui PAST MEDICAL HISTORY: See below and history of TIAs PAST SURGICAL HISTORY: See below MEDICATIONS: See below ALLERGIES: See below SOCIAL HISTORY: No illicit drug use. REVIEW OF SYSTEMS: CONSTITUTIONAL: Denies fever or chills. HEENT: Denies blurred vision, vision changes, or eye pain. Denies hemoptysis CARDIOVASCULAR: Denies chest pain or pressure. RESPIRATORY: No shortness of breath. GASTROINTESTINAL: See HPI for pertinent findings HEMATOLOGIC: Denies bleeding disorders. GENITOURINARY: Denies any blood in urine or increased urinary frequency. SKIN: Denies pruitis. Denies rash. PHYSICAL EXAM: VITAL SIGNS: Reviewed GENERAL: Well-developed in no acute distress. HEENT: No sclera icterus. Extraocular movements grossly intact. Moist buccal mucosa. Head is atraumatic, normocephalic. No nasal drainage. ABDOMEN: Soft. Nondistended. Tenderness with palpation across the lower abdomen NEUROLOGIC: Alert and oriented. Cranial nerves II through XII grossly intact. LABORATORY DATA: WBC is 3.5 Hgb 12.5 platelets 203 INR 0.9 Sodium 140 potassium 3.8 creatinine 0.65 Glucose 263 A1c 8.6 Troponin negative 3 sets LFTs normal COVID-19 not detected IMAGING: KUB x-ray nonspecific bowel gas pattern ASSESSMENT: 1. Lower abdominal pain 2. History of lysis of adhesions 3. Past surgical history includes appendectomy, cholecystectomy and hysterectomy 4. Chest pain evaluated by cardiology PLAN: -Computed tomography scan abdomen and pelvis with oral contrast ordered for further evaluation of abdominal pain -Patient is tentatively scheduled for lysis of adhesions on Tuesday with Dr. 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 Signing provider agrees with the documented findings, assessment, and plan of care. Past Medical History Past Medical History: CVA/TIA, Diabetes Mellitus, Hyperlipidemia, Hypertension Additional Past Medical History / Comment(s): fibomyalgia History of Any Multi-Drug Resistant Organisms: None Reported, C-DIFF Year Discovered:: 2019 MDRO Source:: stool Past Surgical History: Appendectomy, Cholecystectomy, Hysterectomy, Orthopedic Surgery Past Anesthesia/Blood Transfusion Reactions: Postoperative Nausea & Vomiting (PONV) Past Psychological History: Bipolar, Depression Smoking Status: Never smoker Past Alcohol Use History: Occasional Past Drug Use History: Marijuana - Past Family History Mother Family Medical History: Cancer Additional Family Medical History / Comment(s): uterine Father Family Medical History: Cancer Additional Family Medical History / Comment(s): lung Medications and Allergies Home Medications Medication Instructions Recorded Confirmed Type ARIPiprazole [Abilify] 10 mg PO DAILY 11/15/22 02/03/23 History Albuterol Sulfate [Albuterol 2 puff INHALATION RT-Q6H PRN 11/15/22 02/03/23 History Sulfate Hfa] Amitriptyline HCl [Elavil] 25 mg PO HS 11/15/22 02/03/23 History Apixaban [Eliquis] 5 mg PO BID 11/15/22 02/03/23 History Aspirin EC [Ecotrin Low Dose] 81 mg PO DAILY 11/15/22 02/03/23 History Atorvastatin Calcium [Lipitor] 40 mg PO DAILY 11/15/22 02/03/23 History Dulaglutide [Trulicity] 3 mg SQ TH 11/15/22 02/03/23 History Erenumab-Aooe [Aimovig 70 mg SQ QMONTHLY 11/15/22 02/03/23 History Autoinjector] Insulin Aspart [NovoLOG Flexpen] 17 units SQ AC-TID 11/15/22 02/03/23 History Insulin Aspart [NovoLOG Flexpen] See Protocol SQ AC-TID 11/15/22 02/03/23 History Magnesium Oxide 400 mg PO DAILY 11/15/22 02/03/23 History Montelukast Sodium [Singulair] 10 mg PO HS 11/15/22 02/03/23 History Multivitamins, Thera [Multivitamin 1 tab PO DAILY 11/15/22 02/03/23 History (formulary)] Nitroglycerin Sl Tabs [Nitrostat] 0.4 mg SUBLINGUAL Q5M PRN 11/15/22 02/03/23 History Omeprazole 40 mg PO BID 11/15/22 02/03/23 History Ranolazine [Ranolazine ER] 500 mg PO BID 11/15/22 02/03/23 History Topiramate [Topamax] 100 mg PO BID 11/15/22 02/03/23 History clonazePAM [KlonoPIN] 1 mg PO BID 11/15/22 02/03/23 History dilTIAZem HCL [dilTIAZem LBF86Ex 240 mg PO DAILY 11/15/22 02/03/23 History ER (CD)] methocarbamoL [Robaxin] 500 mg PO TID PRN 11/15/22 02/03/23 History Isosorbide Mononitrate ER [Imdur] 60 mg PO DAILY 12/08/22 02/03/23 History Insulin Detemir [Levemir Flextouch 20 units SQ HS #0 12/29/22 02/03/23 Rx Pen] DULoxetine HCL [Cymbalta] 30 mg PO HS 02/03/23 02/03/23 History DULoxetine HCL [Cymbalta] 60 mg PO HS 02/03/23 02/03/23 History Allergies Allergy/AdvReac Type Severity Reaction Status Date / Time trimethobenzamide Allergy Rash/Hives Verified 02/03/23 07:43 [From Tigan] vancomycin Allergy Rash/Hives Verified 02/03/23 07:43 Surgical - Exam Vital Signs Temp Pulse Resp BP Pulse Ox 98.6 F 78 16 111/62 100 02/03/23 04:56 02/03/23 04:56 02/03/23 04:56 02/03/23 04:56 02/03/23 04:56 Results - Labs 02/03/23 05:00 02/03/23 05:00 Abnormal Lab Results - Last 24 Hours (Table) 02/03/23 02/03/23 02/03/23 Range/Units 05:00 11:39 17:27 POC Glucose (mg/dL) 115 H 198 H (70-110) mg/dL Hemoglobin A1c 8.6 H (0.0-6.0) % 02/03/23 02/04/23 Range/Units 20:19 06:01 POC Glucose (mg/dL) 263 H 350 H (70-110) mg/dL Hemoglobin A1c (0.0-6.0) % Diabetes panel 02/03/23 Range/Units 05:00 Hemoglobin A1c 8.6 H (0.0-6.0) %
[2023-02-04] MEDS: KETOROLAC 15 MG/ML 1 ML VIAL IVP PRN ×2 (12:40→18:42)
--- NOTE | 2023-02-04 13:23 | CT ---
EXAMINATION TYPE: CT abdomen pelvis wo con DATE OF EXAM: 02/04/2023 COMPARISON: 02/03/2023 HISTORY: 52-year-old female lower abd pain CT DLP: 1138 mGycm. Automated exposure control for dose reduction was used. TECHNIQUE: Contiguous axial scanning of the abdomen and pelvis after oral contrast. Coronal and sagit ja reconstructions performed. FINDINGS: The heart is normal size without pericardial effusion. Lung bases clear without pleural effusion. Noncontrast appearance of the liver, adrenal glands, kidneys, spleen, and pancreas show no gross abno rmality. Cholecystectomy clips. There is moderate arthroscopic calcifications infrarenal abdominal aorta without aneurysm. Mild apica l scarring narrowing at the origin of the SMA. No dilated small bowel, free fluid, or free air. No mesenteric or retroperitoneal lymphadenopathy. There is surgical material in the right lower quadrant suggesting prior appendectomy. There is mild t o moderate stool burden. No pericolonic inflammatory change. Mildly redundant sigmoid colon. Bladder is urine distended. Uterus surgically absent. Neither ovary clearly visualized. No abnormal f luid collection in the pelvis or pelvic lymphadenopathy. Bones: Anterior endplate spondylosis lower thoracic spine. Fatty matrix hemangioma L3 vertebral body. Transitional lumbosacral segment. Facet arthropathy lower lumbar spine. IMPRESSION: 1. Status post hysterectomy, appendectomy, and cholecystectomy. 2. Axqm-tq-xpiraqyu stool burden. 3. No acute inflammatory process identified to explain the patient's symptoms.
[2023-02-04 17:15] LABS: Glucose,Whole Blood 372 mg/dL (70-110)
[2023-02-04] MEDS ORDERED: INSULIN DETEMIR (LEVEMIR) 100 UNIT/ML SYR SQ SCH (21:00)
[2023-02-04] MEDS: AMITRIPTYLINE HCL 25 MG TAB PO SCH (22:01)
[2023-02-04] MEDS: DULoxetine HCL 30 MG CAPSULE.DR PO SCH (22:02)
[2023-02-04] MEDS: DULoxetine HCL 60 MG CAPSULE.DR PO SCH (22:02)
[2023-02-04] MEDS: MONTELUKAST 10 MG TAB PO SCH (22:03)
[2023-02-04] MEDS: INSULIN DETEMIR (LEVEMIR) 100 UNIT/ML SYR SQ SCH (22:03)
[2023-02-04 22:14] LABS: Glucose,Whole Blood 340 mg/dL (70-110)
[2023-02-05] MEDS: KETOROLAC 15 MG/ML 1 ML VIAL IVP PRN ×4 (01:06→21:04)
[2023-02-05 07:43] LABS: Glucose,Whole Blood 298 mg/dL (70-110)
[2023-02-05] MEDS: INSULIN ASPART (NovoLOG) 100 UNIT/ML VIAL SQ SCH ×7 (07:51→21:03)
[2023-02-05] MEDS: ALBUTEROL NEBULIZED 2.5 MG/3 ML INHALATION PRN ×2 (08:36→20:39)
--- NOTE | 2023-02-05 09:55 | P.PN ---
Progress Note - Text Progress Note Date: 02/05/23 Patient still has crampy lower quadrant abdominal pain. She states the same pains as her previous adhesions. On exam vital signs are stable. Abdomen soft. There is some tenderness lower quadrants. Patient will be scheduled for laparoscopic lysis of adhesions on Tuesday.
[2023-02-05] MEDS: ISOSORBIDE MONONITRATE ER 60 MG TAB.ER.24H PO SCH (10:26)
[2023-02-05] MEDS: DILTIAZEM CD 240 MG CAP.ER.24H PO SCH (10:26)
[2023-02-05] MEDS: ATORVASTATIN 40 MG TAB PO SCH (10:26)
[2023-02-05] MEDS: RANOLAZINE 500 MG TAB.ER.12H PO SCH ×2 (10:26→21:04)
[2023-02-05] MEDS: TOPIRAMATE 100 MG TAB PO SCH ×2 (10:26→21:04)
[2023-02-05] MEDS: ARIPiprazole 10 MG TAB PO SCH (10:26)
[2023-02-05] MEDS: FAMOTIDINE 20 MG/2 ML VIAL IV SCH ×2 (10:27→21:03)
[2023-02-05] MEDS: clonazePAM 1 MG TAB PO SCH ×2 (10:32→21:02)
[2023-02-05 12:09] LABS: Glucose,Whole Blood 260 mg/dL (70-110)
[2023-02-05 17:10] LABS: Glucose,Whole Blood 135 mg/dL (70-110)
[2023-02-05 21:01] LABS: Glucose,Whole Blood 326 mg/dL (70-110)
[2023-02-05] MEDS: AMITRIPTYLINE HCL 25 MG TAB PO SCH (21:02)
[2023-02-05] MEDS: DULoxetine HCL 60 MG CAPSULE.DR PO SCH (21:03)
[2023-02-05] MEDS: INSULIN DETEMIR (LEVEMIR) 100 UNIT/ML SYR SQ SCH (21:03)
[2023-02-05] MEDS: DULoxetine HCL 30 MG CAPSULE.DR PO SCH (21:03)
[2023-02-05] MEDS: MONTELUKAST 10 MG TAB PO SCH (21:04)
[2023-02-05] MEDS: HYDROcodone/APAP 5-325MG 1 EACH TAB PO PRN (23:28)
[2023-02-06] MEDS: KETOROLAC 15 MG/ML 1 ML VIAL IVP PRN ×3 (03:15→18:45)
[2023-02-06 07:42] LABS: Glucose,Whole Blood 335 mg/dL (70-110)
[2023-02-06] MEDS: INSULIN ASPART (NovoLOG) 100 UNIT/ML VIAL SQ SCH ×7 (08:09→21:48)
[2023-02-06] MEDS: DILTIAZEM CD 240 MG CAP.ER.24H PO SCH (08:10)
[2023-02-06] MEDS: ATORVASTATIN 40 MG TAB PO SCH (08:10)
[2023-02-06] MEDS: RANOLAZINE 500 MG TAB.ER.12H PO SCH ×2 (08:10→21:47)
[2023-02-06] MEDS: ARIPiprazole 10 MG TAB PO SCH (08:10)
[2023-02-06] MEDS: TOPIRAMATE 100 MG TAB PO SCH ×2 (08:10→21:47)
[2023-02-06] MEDS: clonazePAM 1 MG TAB PO SCH ×2 (08:10→21:47)
[2023-02-06] MEDS: ISOSORBIDE MONONITRATE ER 60 MG TAB.ER.24H PO SCH (08:10)
[2023-02-06] MEDS: FAMOTIDINE 20 MG/2 ML VIAL IV SCH ×2 (08:11→21:47)
--- NOTE | 2023-02-06 11:23 | P.PN ---
Progress Note - Text Progress Note Date: 02/06/23 The patient still has complaints of lower quadrant abdominal pain. She is attributing this due to her adhesions. On exam vital signs are stable. Abdomen soft. Patient scheduled for laparoscopic lysis of adhesions tomorrow.
[2023-02-06 11:53] LABS: Glucose,Whole Blood 239 mg/dL (70-110)
--- NOTE | 2023-02-06 14:19 | P.PN ---
Subjective Progress Note Date: 02/04/23 52 years old female with past medical history of diabetes mellitus, hypertension, hyperlipidemia, CVA Patient presents because of chest pain of one-day duration the middle of the chest radiating to the back about 7/10 associated with some exertional dyspnea No coughing Patient complains from lower abdominal pain has been going on for 3 months and she was planned to have colonoscopy with Dr. Oglesby on 03/23 as she states. Also she vomited once yesterday but no more vomiting. Patient says she has no problem with bowel movement. Patient has been seen previously for her abdominal pain and ileus by surgery team She denies any current urinary symptoms. No dizziness weakness or numbness but she has headache for her migraine which looks controlled now She denies smoking, alcohol occasionally, she uses marijuana for back pain. She is hemodynamically stable Labs showing mild leukopenia of 3.5, rest of CBC is unremarkable. Low glucose at 36 and 44, currently improved 115 BMP and liver enzymes are unremarkable, troponins [address] are negative. [address] aorta CT: There is minimal atherosclerotic vascular calcification. No evidence of artery or aneurysm or dissection. No evidence of hemodynamic arterial stenosis. No evidence of pulmonary embolism EKG showing normal sinus rhythm at [address]-T changes Objective - Vital Signs Vital signs: Vital Signs Temp 97.8 F 02/04/23 14:00 Pulse 92 02/04/23 14:00 Resp 18 02/04/23 14:00 BP 121/78 02/04/23 14:00 Pulse Ox 94 L 02/04/23 14:00 FiO2 Intake & Output 02/03/23 02/04/23 02/04/23 18:59 06:59 18:59 Intake Total 480 118 Balance 480 118 Weight 108.862 kg Intake: Oral 480 118 Other: Voiding Method Toilet # Voids 1 2 - Exam GENERAL: The patient is alert and oriented x3, not in any acute distress. Well developed, well nourished. HEENT: Pupils are round and equally reacting to light. EOMI. No scleral icterus. No conjunctival pallor. Normocephalic, atraumatic. No pharyngeal erythema. No thyromegaly. CARDIOVASCULAR: S1 and S2 present. No murmurs, rubs, or gallops. PULMONARY: Chest is clear to auscultation, no wheezing or crackles. ABDOMEN: Soft, nontender, nondistended, normoactive bowel sounds. No palpable organomegaly. MUSCULOSKELETAL: No joint swelling or deformity. EXTREMITIES: No cyanosis, clubbing, or pedal edema. NEUROLOGICAL: Gross neurological examination did not reveal any focal deficits. SKIN: No rashes. no petechiae. - Labs CBC & Chem 7: 02/03/23 05:00 02/03/23 05:00 Labs: Abnormal Lab Results - Last 24 Hours (Table) 02/03/23 02/03/23 02/04/23 Range/Units 05:00 20:19 06:01 POC Glucose (mg/dL) 263 H 350 H (70-110) mg/dL Hemoglobin A1c 8.6 H (0.0-6.0) % 02/04/23 02/04/23 Range/Units 12:12 17:13 POC Glucose (mg/dL) 298 H 372 H (70-110) mg/dL Hemoglobin A1c (0.0-6.0) % Assessment and Plan Assessment: Chest pain, rule out cardiac causes Diabetes mellitus, with hypoglycemia present on admission Chronic abdominal pain in the lower abdomen about 3 months planned for colonosc opy as an outpatient Hypertension Hyperlipidemia History of CVA History of migraine Plan: Cardiology consult Serial troponin Continue with insulin sliding scale and check hemoglobin A1c While keeping holding home dose of insulin. at home she was taken Levemir 20 units daily at bedtime and NovoLog 17 units with meals last from the CT Check KUB Labs and medication were reviewed.. Continue same treatment. Continue with symptomatic treatment. Resume home medication. Monitor labs and vitals. DVT and GI prophylaxis. Further recommendations as per clinical course of the patient DVT prophylaxis: rna
--- NOTE | 2023-02-06 14:24 | P.PN ---
Subjective Progress Note Date: 02/05/23 52 years old female with past medical history of diabetes mellitus, hypertension, hyperlipidemia, CVA Patient presents because of chest pain of one-day duration the middle of the chest radiating to the back about 7/10 associated with some exertional dyspnea No coughing Patient complains from lower abdominal pain has been going on for 3 months and she was planned to have colonoscopy with Dr. Oglesby on 03/23 as she states. Also she vomited once yesterday but no more vomiting. Patient says she has no problem with bowel movement. Patient has been seen previously for her abdominal pain and ileus by surgery team She denies any current urinary symptoms. No dizziness weakness or numbness but she has headache for her migraine which looks controlled now She denies smoking, alcohol occasionally, she uses marijuana for back pain. She is hemodynamically stable Labs showing mild leukopenia of 3.5, rest of CBC is unremarkable. Low glucose at 36 and 44, currently improved 115 BMP and liver enzymes are unremarkable, troponins [address] are negative. [address] aorta CT: There is minimal atherosclerotic vascular calcification. No evidence of artery or aneurysm or dissection. No evidence of hemodynamic arterial stenosis. No evidence of pulmonary embolism EKG showing normal sinus rhythm at [address]-T changes 02/05/2023 Patient is seen and evaluated sitting up in bed; continues to have abdominal pain Vital signs are reviewed and stable Blood glucose remains elevated Gen. surgery is following; patient is scheduled for laparoscopic lysis of adhesions on Tuesday Objective - Vital Signs Vital signs: Vital Signs Temp 97.5 F L 02/05/23 07:05 Pulse 76 02/05/23 08:45 Resp 18 02/05/23 07:05 BP 148/79 02/05/23 07:05 Pulse Ox 93 L 02/05/23 08:37 FiO2 21 02/05/23 08:37 Intake & Output 02/04/23 02/05/23 02/05/23 18:59 06:59 18:59 Intake Total 118 Balance 118 Intake: Oral 118 Other: Voiding Method Toilet # Voids 2 - Exam GENERAL: The patient is alert and oriented x3, not in any acute distress. Well developed, well nourished. HEENT: Pupils are round and equally reacting to light. EOMI. No scleral icterus. No conjunctival pallor. Normocephalic, atraumatic. No pharyngeal erythema. No thyromegaly. CARDIOVASCULAR: S1 and S2 present. No murmurs, rubs, or gallops. PULMONARY: Chest is clear to auscultation, no wheezing or crackles. ABDOMEN: Soft, nontender, nondistended, normoactive bowel sounds. No palpable organomegaly. MUSCULOSKELETAL: No joint swelling or deformity. EXTREMITIES: No cyanosis, clubbing, or pedal edema. NEUROLOGICAL: Gross neurological examination did not reveal any focal deficits. SKIN: No rashes. no petechiae. - Labs CBC & Chem 7: 02/03/23 05:00 02/03/23 05:00 Labs: Abnormal Lab Results - Last 24 Hours (Table) 02/04/23 02/04/23 02/05/23 Range/Units 17:13 21:54 07:42 POC Glucose (mg/dL) 372 H 340 H 298 H (70-110) mg/dL 02/05/23 Range/Units 12:08 POC Glucose (mg/dL) 260 H (70-110) mg/dL Assessment and Plan Assessment: Chest pain, rule out cardiac causes Diabetes mellitus, with hypoglycemia present on admission Chronic abdominal pain in the lower abdomen about 3 months planned for colonoscopy as an outpatient Hypertension Hyperlipidemia History of CVA History of migraine Plan: Cardiology consult Serial troponin Continue with insulin sliding scale and check hemoglobin A1c While keeping holding home dose of insulin. at home she was taken Levemir 20 units daily at bedtime and NovoLog 17 units with meals last from the CT Check KUB Labs and medication were reviewed.. Continue same treatment. Continue with symptomatic treatment. Resume home medication. Monitor labs and vitals. DVT and GI prophylaxis. Further recommendations as per clinical course of the patient DVT prophylaxis: ran
[2023-02-06 17:18] LABS: Glucose,Whole Blood 123 mg/dL (70-110)
[2023-02-06] MEDS: HYDROcodone/APAP 5-325MG 1 EACH TAB PO PRN (20:03)
[2023-02-06 21:09] LABS: Glucose,Whole Blood 301 mg/dL (70-110)
[2023-02-06] MEDS: LACTATED RINGERS 1,000 ML IV SCH (21:45)
[2023-02-06] MEDS: DULoxetine HCL 60 MG CAPSULE.DR PO SCH (21:47)
[2023-02-06] MEDS: DULoxetine HCL 30 MG CAPSULE.DR PO SCH (21:47)
[2023-02-06] MEDS: MONTELUKAST 10 MG TAB PO SCH (21:47)
[2023-02-06] MEDS: INSULIN DETEMIR (LEVEMIR) 100 UNIT/ML SYR SQ SCH (21:47)
[2023-02-06] MEDS: AMITRIPTYLINE HCL 25 MG TAB PO SCH (21:47)
[2023-02-07] MEDS: KETOROLAC 15 MG/ML 1 ML VIAL IVP PRN ×3 (04:51→20:14)
[2023-02-07 06:11] LABS: Glucose,Whole Blood 327 mg/dL (70-110)
[2023-02-07] MEDS: INSULIN ASPART (NovoLOG) 100 UNIT/ML VIAL SQ SCH ×7 (06:25→20:23)
[2023-02-07] MEDS: ARIPiprazole 10 MG TAB PO SCH (08:34)
[2023-02-07] MEDS: FAMOTIDINE 20 MG/2 ML VIAL IV SCH ×2 (08:34→20:14)
[2023-02-07] MEDS: ISOSORBIDE MONONITRATE ER 60 MG TAB.ER.24H PO SCH (08:34)
[2023-02-07] MEDS: RANOLAZINE 500 MG TAB.ER.12H PO SCH ×2 (08:35→20:15)
[2023-02-07] MEDS: TOPIRAMATE 100 MG TAB PO SCH ×2 (08:35→20:15)
[2023-02-07] MEDS: DILTIAZEM CD 240 MG CAP.ER.24H PO SCH (08:35)
[2023-02-07] MEDS: ATORVASTATIN 40 MG TAB PO SCH (08:35)
[2023-02-07] MEDS: LACTATED RINGERS 1,000 ML IV SCH (08:40)
[2023-02-07 08:53] LABS: Glucose,Whole Blood 266 mg/dL (70-110)
[2023-02-07] MEDS: clonazePAM 1 MG TAB PO SCH ×2 (09:03→20:15)
[2023-02-07] MEDS ORDERED: ONDANSETRON 4 MG/2 ML VIAL ONE (12:16)
[2023-02-07] MEDS ORDERED: DEXAMETHASONE SOD PHOSPHATE 4 MG/ML 1 ML VIAL IVP ONE (12:29)
[2023-02-07] MEDS ORDERED: ONDANSETRON 4 MG/2 ML VIAL IVP ONE (12:29)
[2023-02-07] MEDS ORDERED: LACTATED RINGERS 1,000 ML IV ONE ×2 (12:29→14:10)
[2023-02-07] MEDS ORDERED: SCOPOLAMINE 1 MG/72 HR PATCH TRANSDERM ONE (12:30)
[2023-02-07 12:40] LABS: Glucose,Whole Blood 252 mg/dL (70-110)
[2023-02-07] MEDS ORDERED: INSULIN ASPART (NovoLOG) 100 UNIT/ML VIAL SQ ONE (12:45)
[2023-02-07] MEDS ORDERED: SUGAMMADEX SODIUM 200 MG/2 ML SDV IV ONE (12:57)
[2023-02-07] MEDS ORDERED: GLYCOPYRROLATE 0.2 MG/ML 2 ML VIAL ONE (12:57)
[2023-02-07] MEDS ORDERED: fentaNYL (PF) 50 MCG/ML 2 ML AMP ONE (12:57)
[2023-02-07] MEDS ORDERED: MIDAZOLAM 2 MG/2 ML VIAL ONE (12:57)
[2023-02-07] MEDS ORDERED: SODIUM CHLORIDE 0.9% 100 ML BAG ONE (12:57)
[2023-02-07] MEDS ORDERED: ceFAZolin 1,000 MG VIAL ONE (12:57)
[2023-02-07] MEDS ORDERED: NEOSTIGMINE 1 MG/ML 10 ML VIAL ONE (12:57)
[2023-02-07] MEDS ORDERED: ALBUTEROL INHALER 60 PUFF/8 GM INHALER (MHU) INHALATION ONE (12:57)
[2023-02-07] MEDS ORDERED: PROPOFOL 10 MG/ML 20 ML VIAL IV ONE (12:57)
[2023-02-07] MEDS ORDERED: LIDOCAINE 2% INJ 20 MG/ML (2 ML VIAL) ONE (12:57)
[2023-02-07] MEDS ORDERED: BUPIVACAINE (PF) 0.25% 30 ML VIAL SQ ONE (13:13)
--- NOTE | 2023-02-07 13:53 | P.OP ---
Date of Procedure: 02/07/23 Preoperative Diagnosis: Adhesions Postoperative Diagnosis: Adhesions Procedure(s) Performed: Laparoscopic lysis of adhesions Anesthesia: JOSE Surgeon: Aaron Eckert Estimated Blood Loss (ml): 5 Pathology: none sent Condition: stable Disposition: PACU Description of Procedure: The patient's placed on the operative table in supine position she received general endotracheal tube anesthesia. Her abdomen was prepped and draped usual fashion. The skin was anesthetized at the incision sites and then a supraumbilical skin incision was made. The Anchor clamp was used to grasp the fascia abdominal wall. Veress needles placed into the pleural cavity. Position of the Veress needle was confirmed with positive drop test. After adequate insufflation a 5 mm trochars placed in the pelvic cavity. The laparoscope placed. Cavity. There were adhesions in the right and left lower quadrant. A 5 mm trocar was placed in the left lateral position and then another 5 mm trochars placed in the right superior lateral position. The adhesions to the right colon were visualized. The adhesions to the cecum were lysed using sharp dissection. Next the adhesions in the left abdominal wall were visualized. A 5 mm trochars placed in the left lateral position and then another trochars placed the left superior position. The adhesions to the colon to the left abdominal wall were then lysed using sharp dissection. There appeared to be some scar tissue around the rectum. This was not lysed due to possible injury of the rectum. No other significant adhesions were seen. The trochars were withdrawn. The skin was closed interrupted 3-0 Monocryl suture. Dermabond was applied. Patient top she will sent to recovery room in stable condition.
[2023-02-07] MEDS: HYDROmorphone 0.5 MG/0.5 ML SYRINGE IVP PRN ×2 (14:30→15:01)
[2023-02-07 14:35] LABS: Glucose,Whole Blood 237 mg/dL (70-110)
[2023-02-07 17:23] LABS: Glucose,Whole Blood 219 mg/dL (70-110)
--- NOTE | 2023-02-07 18:16 | P.PN ---
Subjective Is a pleasant 52 years old female with past medical history of diabetes mellitus, hypertension, hyperlipidemia, CVA Patient presents because of chest pain of one-day duration the middle of the chest radiating to the back about 7/10 associated with some exertional dyspnea No coughing Patient complains from lower abdominal pain has been going on for 3 months and she was planned to have colonoscopy with Dr. Oglesby on 03/23 as she states. Also she vomited once yesterday but no more vomiting. Patient says she has no problem with bowel movement. Patient has been seen previously for her abdominal pain and ileus by surgery team She denies any current urinary symptoms. No dizziness weakness or numbness but she has headache for her migraine which looks controlled now She denies smoking, alcohol occasionally, she uses marijuana for back pain. She is hemodynamically stable Labs showing mild leukopenia of 3.5, rest of CBC is unremarkable. Low glucose at 36 and 44, currently improved 115 BMP and liver enzymes are unremarkable, troponins [address] are negative. [address] CT: There is minimal atherosclerotic vascular calcification. No evidence of artery or aneurysm or dissection. No evidence of hemodynamic arterial stenosis. No evidence of pulmonary embolism EKG showing normal sinus rhythm at [address]-T changes 02/07/2023 Patient still complaining from generalized abdominal pain and tenderness, been going on for the last 3 months, today patient states that is worse than on admission, however she does not look in significant distress. Patient is planned to undergo laparoscopic lysis of adhesions today by surgery team. She is on Lantus and insulin sliding scale and glucose more than 200 Cardiology team already signed off, chest pain and resolved. Quinton is on hold and placed on Lovenox 40 mg daily Possible discharge in 24-48 hours if she keeps improving. Objective - Vital Signs Vital signs: Vital Signs Temp 97.7 F 02/07/23 07:09 Pulse 82 02/07/23 11:51 Resp 16 02/07/23 11:51 BP 130/63 02/07/23 11:51 Pulse Ox 99 02/07/23 11:51 FiO2 21 02/05/23 08:37 Intake & Output 02/06/23 02/07/23 02/07/23 18:59 06:59 18:59 Intake Total 1248 Balance 1248 Intake: Oral 1248 Other: Voiding Method Toilet # Voids 1 3 # Bowel Movements 1 - Exam GENERAL: The patient is alert and oriented x3, not in any acute distress. Well developed, well nourished. HEENT: Pupils are round and equally reacting to light. EOMI. No scleral icterus. No conjunctival pallor. Normocephalic, atraumatic. No pharyngeal erythema. No thyromegaly. CARDIOVASCULAR: S1 and S2 present. No murmurs, rubs, or gallops. PULMONARY: Chest is clear to auscultation, no wheezing or crackles. -ABDOMEN: Soft, generalized abdominal tenderness, nondistended, normoactive bowel sounds. No palpable organomegaly. MUSCULOSKELETAL: No joint swelling or deformity. EXTREMITIES: No cyanosis, clubbing, or pedal edema. NEUROLOGICAL: Gross neurological examination did not reveal any focal deficits. SKIN: No rashes. no petechiae. - Labs CBC & Chem 7: 02/03/23 05:00 02/03/23 05:00 Labs: Abnormal Lab Results - Last 24 Hours (Table) 02/06/23 02/06/23 02/07/23 Range/Units 17:16 21:05 06:10 POC Glucose (mg/dL) 123 H 301 H 327 H (70-110) mg/dL 02/07/23 Range/Units 08:52 POC Glucose (mg/dL) 266 H (70-110) mg/dL Assessment and Plan Assessment: Acute and chronic abdominal pain and tenderness status post lysis of adhesions 02/07. Also patient she has a follow-up appointment with GI service for colonoscopy on 03/23 as an outpatient Chest pain, resolved cardiology cleared patient Diabetes mellitus, with hypoglycemia present on admission Hypertension Hyperlipidemia History of CVA History of migraine Plan: Patient undergo laparoscopic lysis of adhesions Surgery team on the case Cardiology consult absent of the case Continue with insulin sliding scale While keeping holding home dose of insulin. at home she was taken Levemir 20 units daily at bedtime and NovoLog 17 units with meals last from the CT Labs and medication were reviewed.. Continue same treatment. Continue with symptomatic treatment. Resume home medication. Monitor labs and vitals. DVT and GI prophylaxis. Further recommendations as per clinical course of the patient DVT prophylaxis: eliquis: On hold for surgery, switched to Lovenox 40 mg daily GI Prophylaxis: Pepcid Prognosis is guarded
[2023-02-07] MEDS: DULoxetine HCL 30 MG CAPSULE.DR PO SCH (20:15)
[2023-02-07] MEDS: MONTELUKAST 10 MG TAB PO SCH (20:15)
[2023-02-07] MEDS: DULoxetine HCL 60 MG CAPSULE.DR PO SCH (20:15)
[2023-02-07] MEDS: AMITRIPTYLINE HCL 25 MG TAB PO SCH (20:15)
[2023-02-07 20:21] LABS: Glucose,Whole Blood 318 mg/dL (70-110)
[2023-02-07] MEDS: INSULIN DETEMIR (LEVEMIR) 100 UNIT/ML SYR SQ SCH (20:22)
[2023-02-08] MEDS: KETOROLAC 15 MG/ML 1 ML VIAL IVP PRN ×2 (01:51→09:17)
[2023-02-08 06:06] LABS: Glucose,Whole Blood 306 mg/dL (70-110)
[2023-02-08] MEDS: INSULIN ASPART (NovoLOG) 100 UNIT/ML VIAL SQ SCH ×7 (06:22→21:00)
[2023-02-08 07:58] LABS: ALT 28 U/L (4-34); African American GFR (CKD) >90 (>60 ml/min/1.73 sqM); Albumin 3.8 g/dL (3.5-5.0); Albumin/Globulin Ratio 1.5; Anion Gap 7 mmol/L; Blood Urea Nitrogen 14 mg/dL (7-17); Calcium 9.4 mg/dL (8.4-10.2); Carbon Dioxide 23 mmol/L (22-30); Chloride 109 mmol/L (98-107); Globulin 2.5 g/dL; Glucose 302 mg/dL (74-99); Non-African American GFR(CKD) >90 (>60 ml/min/1.73 sqM); Sodium 139 mmol/L (137-145); Total Bilirubin 0.6 mg/dL (0.2-1.3); Total Protein 6.3 g/dL (6.3-8.2)
[2023-02-08 07:59] LABS: AST 30 U/L (14-36); Alkaline Phosphatase 114 U/L (38-126); Potassium 5.2 mmol/L (3.5-5.1)
[2023-02-08] MEDS: DILTIAZEM CD 240 MG CAP.ER.24H PO SCH (09:08)
[2023-02-08] MEDS: FAMOTIDINE 20 MG/2 ML VIAL IV SCH ×2 (09:08→21:05)
[2023-02-08] MEDS: clonazePAM 1 MG TAB PO SCH ×2 (09:09→21:05)
[2023-02-08] MEDS: TOPIRAMATE 100 MG TAB PO SCH ×2 (09:09→21:05)
[2023-02-08] MEDS: ENOXAPARIN 40 MG/0.4 ML SYRINGE SQ SCH (09:09)
[2023-02-08] MEDS: ATORVASTATIN 40 MG TAB PO SCH (09:09)
[2023-02-08] MEDS: RANOLAZINE 500 MG TAB.ER.12H PO SCH ×2 (09:09→21:05)
[2023-02-08] MEDS: ARIPiprazole 10 MG TAB PO SCH (09:10)
[2023-02-08] MEDS: ISOSORBIDE MONONITRATE ER 60 MG TAB.ER.24H PO SCH (09:10)
[2023-02-08] MEDS: LACTATED RINGERS 1,000 ML IV SCH (09:26)
[2023-02-08 12:00] LABS: Glucose,Whole Blood 248 mg/dL (70-110)
[2023-02-08] MEDS: HYDROmorphone 1 MG/ML 1 ML SYRINGE IVP PRN ×2 (12:36→21:04)
--- NOTE | 2023-02-08 13:07 | P.PN ---
Subjective Progress Note Date: 02/08/23 CHIEF COMPLAINT: Abdominal pain HISTORY OF PRESENT ILLNESS: Patient is postop day #1 status post laparoscopic lysis of adhesions. Patient reports that the abdominal pain she presented with has improved. She is complaining more of incisional pain today. She is having flatus. Denies any nausea or vomiting. Didn't tolerate regular diet. Afebrile. She is requesting IV pain medication. Sodium 139 potassium is 5.2 creatinine 0.51 Patient seen and examined with Dr. Eckert PHYSICAL EXAM: VITAL SIGNS: Reviewed. GENERAL: Well-developed in no acute distress. HEENT: No sclera icterus. Extraocular movements grossly intact. Moist buccal mucosa. Head is atraumatic, normocephalic. ABDOMEN: Soft. Nondistended. Tender incision sites. Incision sites clean dry and intact NEUROLOGIC: Alert and oriented. Cranial nerves II through XII grossly intact. ASSESSMENT: 1. Abdominal pain status post lysis of adhesions PLAN: -IV Dilaudid added to help with pain control -Encouraged patient to use oral pain medication -Continue regular diet -Encouraged patient to ambulate -Anticipate discharge possibly tomorrow Physician Machine Set Up Operator note has been reviewed by physician. Signing provider agrees with the documented findings, assessment, and plan of care. Objective - Vital Signs Vital signs: Vital Signs Temp 97.5 F L 02/08/23 08:45 Pulse 96 02/08/23 08:45 Resp 16 02/08/23 08:45 BP 165/85 02/08/23 08:45 Pulse Ox 99 02/08/23 08:45 FiO2 21 02/05/23 08:37 Intake & Output 02/07/23 02/08/23 02/08/23 18:59 06:59 18:59 Intake Total 1999 Output Total 10 Balance 1989 Intake: IV 1999 Output: Estimated Blood Loss 10 Other: Voiding Method Toilet Toilet # Voids 4 2 # Bowel Movements 1 - Labs CBC & Chem 7: 02/03/23 05:00 02/08/23 06:43 Labs: Abnormal Lab Results - Last 24 Hours (Table) 02/07/23 02/07/23 02/07/23 Range/Units 14:33 17:21 20:20 Potassium (3.5-5.1) mmol/L Chloride (98-107) mmol/L Creatinine (0.52-1.04) mg/dL Glucose (74-99) mg/dL POC Glucose (mg/dL) 237 H 219 H 318 H (70-110) mg/dL 02/08/23 02/08/23 02/08/23 Range/Units 06:04 06:43 11:59 Potassium 5.2 H (3.5-5.1) mmol/L Chloride 109 H (98-107) mmol/L Creatinine 0.51 L (0.52-1.04) mg/dL Glucose 302 H (74-99) mg/dL POC Glucose (mg/dL) 306 H 248 H (70-110) mg/dL
[2023-02-08] MEDS: HYDROcodone/APAP 5-325MG 1 EACH TAB PO PRN (15:33)
[2023-02-08 17:13] LABS: Glucose,Whole Blood 120 mg/dL (70-110)
[2023-02-08 20:46] LABS: Glucose,Whole Blood 80 mg/dL (70-110)
[2023-02-08] MEDS: INSULIN DETEMIR (LEVEMIR) 100 UNIT/ML SYR SQ SCH (21:00)
[2023-02-08] MEDS: DULoxetine HCL 30 MG CAPSULE.DR PO SCH (21:05)
[2023-02-08] MEDS: MONTELUKAST 10 MG TAB PO SCH (21:05)
[2023-02-08] MEDS: DULoxetine HCL 60 MG CAPSULE.DR PO SCH (21:05)
[2023-02-08] MEDS: AMITRIPTYLINE HCL 25 MG TAB PO SCH (21:05)
[2023-02-08 23:22] VITALS: RESP 16
--- NOTE | 2023-02-09 00:19 | P.PN ---
Subjective Is a pleasant 52 years old female with past medical history of diabetes mellitus, hypertension, hyperlipidemia, CVA Patient presents because of chest pain of one-day duration the middle of the chest radiating to the back about 7/10 associated with some exertional dyspnea No coughing Patient complains from lower abdominal pain has been going on for 3 months and she was planned to have colonoscopy with Dr. Oglesby on 03/23 as she states. Also she vomited once yesterday but no more vomiting. Patient says she has no problem with bowel movement. Patient has been seen previously for her abdominal pain and ileus by surgery team She denies any current urinary symptoms. No dizziness weakness or numbness but she has headache for her migraine which looks controlled now She denies smoking, alcohol occasionally, she uses marijuana for back pain. She is hemodynamically stable Labs showing mild leukopenia of 3.5, rest of CBC is unremarkable. Low glucose at 36 and 44, currently improved 115 BMP and liver enzymes are unremarkable, troponins [address] are negative[address] aorta CT: There is minimal atherosclerotic vascular calcification. No evidence of artery or aneurysm or dissection. No evidence of hemodynamic arterial stenosis. No evidence of pulmonary embolism EKG showing normal sinus rhythm at [address]-T changes 02/07/2023 Patient still complaining from generalized abdominal pain and tenderness, been going on for the last 3 months, today patient states that is worse than on admission, however she does not look in significant distress. Patient is planned to undergo laparoscopic lysis of adhesions today by surgery team. She is on Lantus and insulin sliding scale and glucose more than 200 Cardiology team already signed off, chest pain and resolved. [place] is on hold and placed on Lovenox 40 mg daily Possible discharge in 24-48 hours if she keeps improving. 02/08/2023 Patient status post lysis of adhesions, today she is awake and alert. Relaxed in bed however fistula complaint of from postop abdominal pain and tenderness, we'll keep monitoring. She is currently on regular diet. Vital signs stable She was placed on Dilaudid, also her sugar was uncontrolled therefore nurse held Levemir 20 units tonight, we change it to 10 units twice a day. She is also on NovoLog 70 units with meals Objective - Vital Signs Vital signs: Vital Signs Temp 97.5 F L 02/08/23 08:45 Pulse 96 02/08/23 08:45 Resp 16 02/08/23 08:45 BP 165/85 02/08/23 08:45 Pulse Ox 99 02/08/23 08:45 FiO2 21 02/05/23 08:37 Intake & Output 02/07/23 02/08/23 02/08/23 18:59 06:59 18:59 Intake Total 1999 Output Total 10 Balance 1989 Intake: IV 1999 Output: Estimated Blood Loss 10 Other: Voiding Method Toilet Toilet # Voids 4 2 # Bowel Movements 1 - Exam GENERAL: The patient is alert and oriented x3, not in any acute distress. Well developed, well nourished. HEENT: Pupils are round and equally reacting to light. EOMI. No scleral icterus. No conjunctival pallor. Normocephalic, atraumatic. No pharyngeal erythema. No thyromegaly. CARDIOVASCULAR: S1 and S2 present. No murmurs, rubs, or gallops. PULMONARY: Chest is clear to auscultation, no wheezing or crackles. -ABDOMEN: Soft, generalized abdominal tenderness, nondistended, normoactive bowel sounds. No palpable organomegaly. MUSCULOSKELETAL: No joint swelling or deformity. EXTREMITIES: No cyanosis, clubbing, or pedal edema. NEUROLOGICAL: Gross neurological examination did not reveal any focal deficits. SKIN: No rashes. no petechiae. - Labs CBC & Chem 7: 02/03/23 05:00 02/08/23 06:43 Labs: Abnormal Lab Results - Last 24 Hours (Table) 02/07/23 02/07/23 02/07/23 Range/Units 14:33 17:21 20:20 Potassium (3.5-5.1) mmol/L Chloride (98-107) mmol/L Creatinine (0.52-1.04) mg/dL Glucose (74-99) mg/dL POC Glucose (mg/dL) 237 H 219 H 318 H (70-110) mg/dL 02/08/23 02/08/23 02/08/23 Range/Units 06:04 06:43 11:59 Potassium 5.2 H (3.5-5.1) mmol/L Chloride 109 H (98-107) mmol/L Creatinine 0.51 L (0.52-1.04) mg/dL Glucose 302 H (74-99) mg/dL POC Glucose (mg/dL) 306 H 248 H (70-110) mg/dL Assessment and Plan Assessment: Acute and chronic abdominal pain and tenderness status post lysis of adhesions 02/07. Also patient she has a follow-up appointment with GI service for colonoscopy on 03/23 as an outpatient Chest pain, resolved cardiology cleared patient Diabetes mellitus, with hypoglycemia present on admission Hypertension Hyperlipidemia History of CVA History of migraine Plan: Patient currently on regular diet Continue with pain management Monitor for signs of improvement Surgery team on the case Continue with insulin sliding scale Continue on insulin at home she was taken Levemir 20 units daily at bedtime and NovoLog 17 units with meals, transient a 10 units twice a day Labs and medication were reviewed.. Continue same treatment. Continue with symptomatic treatment. Resume home medication. Monitor labs and vitals. DVT and GI prophylaxis. Further recommendations as per clinical course of the patient DVT prophylaxis: eliquis: On hold for surgery, switched to Lovenox 40 mg daily GI Prophylaxis: Pepcid Prognosis is guarded
[2023-02-09] MEDS: HYDROcodone/APAP 5-325MG 1 EACH TAB PO PRN ×3 (02:17→15:24)
[2023-02-09] MEDS: HYDROmorphone 1 MG/ML 1 ML SYRINGE IVP PRN (04:55)
[2023-02-09] MEDS: LACTATED RINGERS 1,000 ML IV SCH (05:24)
[2023-02-09 08:03] LABS: Glucose,Whole Blood 262 mg/dL (70-110)
[2023-02-09] MEDS: INSULIN ASPART (NovoLOG) 100 UNIT/ML VIAL SQ SCH ×4 (08:26→13:01)
[2023-02-09 09:07] VITALS: TEMP 97.7
[2023-02-09] MEDS: ARIPiprazole 10 MG TAB PO SCH (09:31)
[2023-02-09] MEDS: FAMOTIDINE 20 MG/2 ML VIAL IV SCH (09:31)
[2023-02-09] MEDS: TOPIRAMATE 100 MG TAB PO SCH (09:32)
[2023-02-09] MEDS: RANOLAZINE 500 MG TAB.ER.12H PO SCH (09:32)
[2023-02-09] MEDS: clonazePAM 1 MG TAB PO SCH (09:32)
[2023-02-09] MEDS: INSULIN DETEMIR (LEVEMIR) 100 UNIT/ML SYR SQ SCH ×2 (09:32→10:03)
[2023-02-09] MEDS: ATORVASTATIN 40 MG TAB PO SCH (09:32)
[2023-02-09] MEDS: ENOXAPARIN 40 MG/0.4 ML SYRINGE SQ SCH (09:32)
[2023-02-09] MEDS: DILTIAZEM CD 240 MG CAP.ER.24H PO SCH (09:32)
[2023-02-09] MEDS: ISOSORBIDE MONONITRATE ER 60 MG TAB.ER.24H PO SCH (11:15)
[2023-02-09 12:15] LABS: Glucose,Whole Blood 356 mg/dL (70-110)
[2023-02-09] MEDS ORDERED: INSULIN DETEMIR (LEVEMIR) 100 UNIT/ML SYR SQ ONE (13:00)
[2023-02-09] MEDS ORDERED: CLOTRIMAZOLE 1% CREAM 30 GM TUBE TOPICAL SCH (13:45)
--- NOTE | 2023-02-09 13:59 | P.PN ---
Subjective Progress Note Date: 02/09/23 CHIEF COMPLAINT: Abdominal pain HISTORY OF PRESENT ILLNESS: Patient is postop day #2 status post laparoscopic lysis of adhesions. Patient continues to have abdominal pain at incision sites. She does report the pain is better than yesterday. She is having flatus. She denies any nausea or vomiting. She is tolerating diet. Afebrile. Repeat potassium 5.2 down to 4.4 Patient seen and examined with Dr. Eckert PHYSICAL EXAM: VITAL SIGNS: Reviewed. GENERAL: Well-developed in no acute distress. HEENT: No sclera icterus. Extraocular movements grossly intact. Moist buccal mucosa. Head is atraumatic, normocephalic. ABDOMEN: Soft. Nondistended. Tender incision sites. Incision sites clean dry and intact NEUROLOGIC: Alert and oriented. Cranial nerves II through XII grossly intact. ASSESSMENT: 1. Abdominal pain status post lysis of adhesions PLAN: -Okay to resume Eliquis -Okay to be discharged from surgical standpoint Physician Acidizer Helper note has been reviewed by physician. Signing provider agrees with the documented findings, assessment, and plan of care. Objective - Vital Signs Vital signs: Vital Signs Temp 97.7 F 02/09/23 08:00 Pulse 84 02/09/23 08:00 Resp 16 02/09/23 08:00 BP 126/70 02/09/23 08:00 Pulse Ox 99 02/09/23 08:00 FiO2 21 02/05/23 08:37 Intake & Output 02/08/23 02/09/23 02/09/23 18:59 06:59 18:59 Intake Total 562 Balance 562 Intake: Oral 562 Other: Voiding Method Toilet Toilet # Voids 3 1 - Labs CBC & Chem 7: 02/03/23 05:00 02/09/23 05:58 Labs: Abnormal Lab Results - Last 24 Hours (Table) 02/08/23 02/08/23 02/09/23 Range/Units 11:59 17:12 08:01 POC Glucose (mg/dL) 248 H 120 H 262 H (70-110) mg/dL
[2023-02-09 15:22] VITALS: BP 101/68; PULSE 85
[2023-02-09] MEDS ORDERED: APIXABAN 5 MG TAB PO SCH (21:00)
--- NOTE | 2023-02-09 22:48 | P.DS ---
Providers Date of admission: 02/03/23 06:22 Attending physician: Velvet Henderson Consults: 02/03/23 15:26 Consult Physician Urgent Consulting Provider: Aaron Eckert Consult Reason/Comments: abd pain Do you want consulting provider notified?: Yes 02/09/23 11:41 Consult Physician Routine Consulting Provider: Angella Sawant Consult Reason/Comments: left forarm rash Do you want consulting provider notified?: Already Contacted Primary care physician: Brayden Valdovinos [facility] Course: Diagnoses: Acute and chronic abdominal pain and tenderness status post lysis of adhesions 02/07. Also patient she has a follow-up appointment with GI service for colonoscopy on 03/23 as an outpatient Chest pain, resolved cardiology cleared patient Diabetes mellitus, with hypoglycemia present on admission Hypertension Hyperlipidemia History of CVA History of migraine Hospital course: Is a pleasant 52 years old female with past medical history of diabetes mellitus, hypertension, hyperlipidemia, CVA Patient presents because of chest pain but this resolved and patient cleared for discharge by motor equipment captain from the beginning however turns out that her main problem was lower abdominal pain and tenderness which becomes generalized that time, this has been going on for several months but slowly getting worse, she was supposed to follow-up with Dr. Oglesby on 03/23 for colonoscopy. She's been evaluated by surgery team also before and treated with conservative management, however because of the progressive symptoms and no resolution surgical consult was placed who evaluated the patient and she underwent lysis of adhesions on both right and left side to the: And abdomen and today she feels much better, she is postop day #2. She stated that the downside, she eats 100% of her meal, she is passing gas with abdominal pain and tenderness is resolved and her main problem was pain and tenderness around the incision site. She denies any other symptoms on discharge, no chest pain or dyspnea, no change in urine habits. Afebrile. Patient's once to go home today. Patient was cleared for discharge by surgery, pulmonary and ID team. Socially has some evidence of fungal rash in the left forearm started on clotrimazole per ID team with recommendation for outpatient follow-up Patient's she feels much better today Problems and management plan were discussed with the patient and he verbalized understanding and acceptance Patient was found stable and can be discharged home in guarded prognosis however he needs follow-up as an outpatient. Patient was instructed to follow up with PCP Dr. Valdovinos within one week and patient agrees Sugar was becoming low on the nighttime and she was advised to switch her Levemir from nighttime into daily dose and she agrees. Patient was instructed to follow up with her surgeon Dr. Daniel israel in one week and with GI service Dr. Oglesby in one week and for her colonoscopy on 03/23, also patient was instructed to follow up with Dr. Sawant from infectious disease in one week and she agrees Physical exam Gen: patient is a AAOx3, no distress CVS: S1-S2, RRR, no murmur Lungs: B/L CTA, no wheezing -Abdomen: soft, no distention, no tenderness, positive bowel sounds. Laparoscopic wounds are closed and healing Extremity: no leg edema or induration Time spent more than 35 minutes Patient Condition at Discharge: Fair Plan - Discharge Summary Discharge Rx Participant: No New Discharge Prescriptions: New Clotrimazole Cream [Lotrimin Cream] 1 applic TOPICAL BID #1 tub HYDROcodone/APAP 7.5-325MG [[place] 7.5-325] 1 tab PO Q6HR PRN 3 Days #10 tab PRN Reason: Pain Continue methocarbamoL [Robaxin] 500 mg PO TID PRN PRN Reason: Pain Aspirin EC [Ecotrin Low Dose] 81 mg PO DAILY Ranolazine [Ranolazine ER] 500 mg PO BID Dulaglutide [Trulicity] 3 mg SQ TH Omeprazole 40 mg PO BID Nitroglycerin Sl Tabs [Nitrostat] 0.4 mg SUBLINGUAL Q5M PRN PRN Reason: Chest Pain Insulin Aspart [NovoLOG Flexpen] 17 units SQ AC-TID Montelukast Sodium [Singulair] 10 mg PO HS Magnesium Oxide 400 mg PO DAILY Atorvastatin Calcium [Lipitor] 40 mg PO DAILY ARIPiprazole [Abilify] 10 mg PO DAILY Albuterol Sulfate [Albuterol Sulfate Hfa] 2 puff INHALATION RT-Q6H PRN PRN Reason: Shortness Of Breath Isosorbide Mononitrate ER [Imdur] 60 mg PO DAILY DULoxetine HCL [Cymbalta] 30 mg PO HS Topiramate [Topamax] 100 mg PO BID Insulin Aspart [NovoLOG Flexpen] See Protocol SQ AC-TID Apixaban [Eliquis] 5 mg PO BID dilTIAZem HCL [dilTIAZem [id number] ER (CD)] 240 mg PO DAILY clonazePAM [KlonoPIN] 1 mg PO BID Amitriptyline HCl [Elavil] 25 mg PO HS DULoxetine HCL [Cymbalta] 60 mg PO HS Changed Insulin Detemir [Levemir Flextouch Pen] 20 units SQ DAILY #0 Discontinued Multivitamins, Thera [Multivitamin (formulary)] 1 tab PO DAILY No Action Erenumab-Aooe [Aimovig Autoinjector] 70 mg SQ QMONTHLY Discharge Medication List ARIPiprazole [Abilify] 10 mg PO DAILY 11/15/22 [History] Albuterol Sulfate [Albuterol Sulfate Hfa] 2 puff INHALATION RT-Q6H PRN 11/15/22 [History] Amitriptyline HCl [Elavil] 25 mg PO HS 11/15/22 [History] Apixaban [Eliquis] 5 mg PO BID 11/15/22 [History] Aspirin EC [Ecotrin Low Dose] 81 mg PO DAILY 11/15/22 [History] Atorvastatin Calcium [Lipitor] 40 mg PO DAILY 11/15/22 [History] Dulaglutide [Trulicity] 3 mg SQ TH 11/15/22 [History] Erenumab-Aooe [Aimovig Autoinjector] 70 mg SQ QMONTHLY 11/15/22 [History] Insulin Aspart [NovoLOG Flexpen] 17 units SQ AC-TID 11/15/22 [History] Insulin Aspart [NovoLOG Flexpen] See Protocol SQ AC-TID 11/15/22 [History] Magnesium Oxide 400 mg PO DAILY 11/15/22 [History] Montelukast Sodium [Singulair] 10 mg PO HS 11/15/22 [History] Nitroglycerin Sl Tabs [Nitrostat] 0.4 mg SUBLINGUAL Q5M PRN 11/15/22 [History] Omeprazole 40 mg PO BID 11/15/22 [History] Ranolazine [Ranolazine ER] 500 mg PO BID 11/15/22 [History] Topiramate [Topamax] 100 mg PO BID 11/15/22 [History] clonazePAM [KlonoPIN] 1 mg PO BID 11/15/22 [History] dilTIAZem HCL [dilTIAZem [id number] ER (CD)] 240 mg PO DAILY 11/15/22 [History] methocarbamoL [Robaxin] 500 mg PO TID PRN 11/15/22 [History] Isosorbide Mononitrate ER [Imdur] 60 mg PO DAILY 12/08/22 [History] DULoxetine HCL [Cymbalta] 30 mg PO HS 02/03/23 [History] DULoxetine HCL [Cymbalta] 60 mg PO HS 02/03/23 [History] Clotrimazole Cream [Lotrimin Cream] 1 applic TOPICAL BID #1 tub 02/09/23 [Rx] HYDROcodone/APAP 7.5-325MG [[place] 7.5-325] 1 tab PO Q6HR PRN 3 Days #10 tab 02/09/23 [Rx] Insulin Detemir [Levemir Flextouch Pen] 20 units SQ DAILY #0 02/09/23 [Rx] Follow up Appointment(s)/Referral(s): Linda Oglesby MD [STAFF PHYSICIAN] - 1 Week (you have an appointment with on March, for colonocopy as you infomred the medical team ) Brayden Valdovinos DO [Primary Care Provider] - 1-2 days Angella Sawant MD [STAFF PHYSICIAN] - 02/22/23 2:00 pm Aaron Eckert MD [STAFF PHYSICIAN] - 02/18/23 10:30 am Activity/Diet/Wound Care/Special Instructions: No driving while taking [place] No lifting over 10 pounds Shower daily. No soaking or tub baths for 2 weeks Very light activity until you are reevaluated at your follow up appointment with your surgeon heart healthy diet activity is restricted till you see your doctor we recommend to check your glucose 4 times a day before each meal and at bed time , keep the results in a log book and bring it to your doctor upon your appointment date if your glucose is less than 70 or more than 400 then call 911 and come to emergency room Discharge Disposition: HOME SELF-CARE
[2023-02-10] MEDS ORDERED: INSULIN DETEMIR (LEVEMIR) 100 UNIT/ML SYR SQ SCH (07:00)
--- NOTE | 2023-02-10 21:51 | P.PN ---
Subjective Progress Note Date: 02/06/23 52 years old female with past medical history of diabetes mellitus, hypertension, hyperlipidemia, CVA Patient presents because of chest pain of one-day duration the middle of the chest radiating to the back about 7/10 associated with some exertional dyspnea No coughing Patient complains from lower abdominal pain has been going on for 3 months and she was planned to have colonoscopy with Dr. Oglesby on 03/23 as she states. Also she vomited once yesterday but no more vomiting. Patient says she has no problem with bowel movement. Patient has been seen previously for her abdominal pain and ileus by surgery team She denies any current urinary symptoms. No dizziness weakness or numbness but she has headache for her migraine which looks controlled now She denies smoking, alcohol occasionally, she uses marijuana for back pain. She is hemodynamically stable Labs showing mild leukopenia of 3.5, rest of CBC is unremarkable. Low glucose at 36 and 44, currently improved 115 BMP and liver enzymes are unremarkable, troponins [address] are negative[address] CT: There is minimal atherosclerotic vascular calcification. No evidence of artery or aneurysm or dissection. No evidence of hemodynamic arterial stenosis. No evidence of pulmonary embolism EKG showing normal sinus rhythm at [address]-T changes 02/05/2023 Patient is seen and evaluated sitting up in bed; continues to have abdominal pain Vital signs are reviewed and stable Blood glucose remains elevated Gen. surgery is following; patient is scheduled for laparoscopic lysis of adhesions on Tuesday02/06/2023 The patient is seen and evaluated in room at bedside; still has complaints of lower quadrant abdominal pain. She is attributing this due to her adhesions. On exam vital signs are stable. Abdomen soft. Patient scheduled for laparoscopic lysis of adhesions tomorrow. Continue with pain control Objective - Vital Signs Vital signs: Vital Signs Temp 97.3 F L 02/06/23 07:35 Pulse 79 02/06/23 07:35 Resp 18 02/06/23 07:35 BP 170/82 02/06/23 07:35 Pulse Ox 97 02/06/23 09:09 FiO2 21 02/05/23 08:37 Intake & Output 02/05/23 02/06/23 02/06/23 18:59 06:59 18:59 Intake Total 240 804 Balance 240 804 Intake: Oral 240 804 Other: Voiding Method Toilet # Voids 3 2 # Bowel Movements 3 - Exam GENERAL: The patient is alert and oriented x3, not in any acute distress. Well developed, well nourished. HEENT: Pupils are round and equally reacting to light. EOMI. No scleral icterus. No conjunctival pallor. Normocephalic, atraumatic. No pharyngeal erythema. No thyromegaly. CARDIOVASCULAR: S1 and S2 present. No murmurs, rubs, or gallops. PULMONARY: Chest is clear to auscultation, no wheezing or crackles. ABDOMEN: Soft, nontender, nondistended, normoactive bowel sounds. No palpable organomegaly. MUSCULOSKELETAL: No joint swelling or deformity. EXTREMITIES: No cyanosis, clubbing, or pedal edema. NEUROLOGICAL: Gross neurological examination did not reveal any focal deficits. SKIN: No rashes. no petechiae. - Labs CBC & Chem 7: 02/03/23 05:00 02/09/23 05:58 Labs: Abnormal Lab Results - Last 24 Hours (Table) 02/05/23 02/05/23 02/06/23 Range/Units 17:09 21:00 07:40 POC Glucose (mg/dL) 135 H 326 H 335 H (70-110) mg/dL 02/06/23 Range/Units 11:52 POC Glucose (mg/dL) 239 H (70-110) mg/dL Assessment and Plan Assessment: Chest pain, rule out cardiac causes Diabetes mellitus, with hypoglycemia present on admission Chronic abdominal pain in the lower abdomen about 3 months planned for colonoscopy as an outpatient Hypertension Hyperlipidemia History of CVA History of migraine Plan: Cardiology consult Serial troponin Continue with insulin sliding scale and check hemoglobin A1c While keeping holding home dose of insulin. at home she was taken Levemir 20 units daily at bedtime and NovoLog 17 units with meals last from the CT Check KUB Labs and medication were reviewed.. Continue same treatment. Continue with symptomatic treatment. Resume home medication. Monitor labs and vitals. DVT and GI prophylaxis. Further recommendations as per clinical course of the patient DVT prophylaxis: ran
--- NOTE | 2023-02-10 22:47 | CDI ---
Documentation Clarification Form Date: 02/10/2023 10:37:16 PM From: Ann Dobbs Phone: Admit Date: 02/03/2023 6:22:00 AM Patient Name: Aurora Tsai Visit Number: [id number] Discharge Date: 02/09/2023 5:00:00 PM ATTENTION: The Clinical Documentation Specialists (CDI) and [facility] Coding Staff appreciate your assistance in clarifying documentation. Please respond to the clarification below the line at the bottom and electronically sign. The CDI & [facility] Coding staff will review the response and follow-up if needed. Please note: Queries are made part of the Legal Health Record. If you have any questions, please contact the author of this message via ITS. Dr. Gideon Johnson Diabetes is documented ED Note. Additional specificity regarding the diabetes diagnosis is requested. History/Risk Factors: 52yo F, Acute andchronic abdominal, Chest pain, A Fib, HTN, HLD, DMII whypoglycemia, Hx CVA &migraine Clinical Indicators: 02/03 Glucose 230 A1C: 8.6 Estimated Avg Glucose: 200 Treatment: Continue with insulin sliding scale and check hemoglobin A1c while keeping holdinghome dose of insulin. at home she was taken Levemir 20 units daily at bedtime and NovoLog 17 units with meals last from theCT. Please clarify if DMII w hyperglycemia is a valid diagnosis? [x ] Yes, DMII w hyperglycemia is present as evidence by (additional clinical support): [ ] No, DMII w hyperglycemia is ruled out [ ] Other, please specify [ ] Unable to Determine (Template Last Revised: January 2021) MTDD
--- NOTE | 2023-02-14 22:49 | P.CONS ---
History of Present Illness - Reason for Consult Consult date: 02/09/23 Left forearm rash Requesting physician: Gideon E Sheet - Chief Complaint Left forearm rash x one day - History of Present Illness Patient is a 52-year-old female with a past medical history significant for diabetes mellitus hypertension hyperlipidemia CVA TIA fibr omyalgia presenting to the ER on 02/03/2023 for evaluation of chest and abdominal pain patient pain was mostly in the upper abdominal area with some radiation to the back did have associated nausea but no vomiting and intensity of the pain was almost 7-8 out of 10, patient on presentation to the hospital was afebrile and no fever has been recorded subsequently patient did have a normal white count kidney function has been normal limits of the normal COVID testing was negative patient did have a CT of abdominal pelvis no acute inflammatory process mild to moderate stool burden patient was evaluated by general surgery patient was taken to the OR on 02/07/2023 and is status post laparoscopic lysis of adhesion no mention of any perforation patient apparently developing a rash on the left forearm area with clear center and surrounding erythema patient did have some itching associated with it but no burning or sharp pain no drainage patient mention symptoms are similar to rash on the right side of the forehead that was diagnosed with ringworm and treated with some local antifungal cream patient currently do not have any rash or any other part of the body or any joint swelling Review of Systems Positive point has been mentioned in the HPI rest of the systems are negative Past Medical History Past Medical History: CVA/TIA, Diabetes Mellitus, Hyperlipidemia, Hypertension Additional Past Medical History / Comment(s): fibomyalgia History of Any Multi-Drug Resistant Organisms: None Reported, C-DIFF Year Discovered:: 2019 MDRO Source:: stool Past Surgical History: Appendectomy, Cholecystectomy, Hysterectomy, Orthopedic Surgery Past Anesthesia/Blood Transfusion Reactions: Postoperative Nausea & Vomiting (PONV) Past Psychological History: Bipolar, Depression Smoking Status: Never smoker Past Alcohol Use History: Occasional Past Drug Use History: Marijuana - Past Family History Mother Family Medical History: Cancer Additional Family Medical History / Comment(s): uterine Father Family Medical History: Cancer Additional Family Medical History / Comment(s): lung Medications and Allergies Home Medications Medication Instructions Recorded Confirmed Type ARIPiprazole [Abilify] 10 mg PO DAILY 11/15/22 02/03/23 History Albuterol Sulfate [Albuterol 2 puff INHALATION RT-Q6H PRN 11/15/22 02/03/23 History Sulfate Hfa] Amitriptyline HCl [Elavil] 25 mg PO HS 11/15/22 02/03/23 History Apixaban [Eliquis] 5 mg PO BID 11/15/22 02/03/23 History Aspirin EC [Ecotrin Low Dose] 81 mg PO DAILY 11/15/22 02/03/23 History Atorvastatin Calcium [Lipitor] 40 mg PO DAILY 11/15/22 02/03/23 History Dulaglutide [Trulicity] 3 mg SQ TH 11/15/22 02/03/23 History Erenumab-Aooe [Aimovig 70 mg SQ QMONTHLY 11/15/22 02/03/23 History Autoinjector] Insulin Aspart [NovoLOG Flexpen] 17 units SQ AC-TID 11/15/22 02/03/23 History Insulin Aspart [NovoLOG Flexpen] See Protocol SQ AC-TID 11/15/22 02/03/23 History Magnesium Oxide 400 mg PO DAILY 11/15/22 02/03/23 History Montelukast Sodium [Singulair] 10 mg PO HS 11/15/22 02/03/23 History Nitroglycerin Sl Tabs [Nitrostat] 0.4 mg SUBLINGUAL Q5M PRN 11/15/22 02/03/23 History Omeprazole 40 mg PO BID 11/15/22 02/03/23 History Ranolazine [Ranolazine ER] 500 mg PO BID 11/15/22 02/03/23 History Topiramate [Topamax] 100 mg PO BID 11/15/22 02/03/23 History clonazePAM [KlonoPIN] 1 mg PO BID 11/15/22 02/03/23 History dilTIAZem HCL [dilTIAZem ICP53Bg 240 mg PO DAILY 11/15/22 02/03/23 History ER (CD)] methocarbamoL [Robaxin] 500 mg PO TID PRN 11/15/22 02/03/23 History Isosorbide Mononitrate ER [Imdur] 60 mg PO DAILY 12/08/22 02/03/23 History DULoxetine HCL [Cymbalta] 30 mg PO HS 02/03/23 02/03/23 History DULoxetine HCL [Cymbalta] 60 mg PO HS 02/03/23 02/03/23 History Clotrimazole Cream [Lotrimin Cream] 1 applic TOPICAL BID #1 tub 02/09/23 Rx HYDROcodone/APAP 7.5-325MG [[place] 1 tab PO Q6HR PRN 3 Days #10 tab 02/09/23 Rx 7.5-325] Insulin Detemir [Levemir Flextouch 20 units SQ DAILY #0 02/09/23 02/03/23 Rx Pen] Allergies Allergy/AdvReac Type Severity Reaction Status Date / Time trimethobenzamide Allergy Rash/Hives Verified 02/03/23 07:43 [From Tigan] vancomycin Allergy Rash/Hives Verified 02/03/23 07:43 Physical Exam Vitals: Vital Signs Temp Pulse Resp BP BP Pulse Ox 02/09/23 10:45 90 127/80 98 02/09/23 08:00 97.7 F 84 16 126/70 99 02/09/23 07:46 98 02/09/23 04:42 97.8 F 78 16 106/63 98 02/08/23 20:43 97.7 F 91 16 114/72 96 02/08/23 14:00 98 F 90 18 109/74 98 Intake and Output 02/08/23 02/09/23 02/09/23 22:59 06:59 14:59 Intake Total 118 480 Balance 118 480 Intake: Oral 118 480 Other: Voiding Method Toilet # Voids 3 1 GENERAL DESCRIPTION: Middle-aged female lying in bed, no distress. No tachypnea or accessory muscle of respiration use. HEENT: Shows Pallor , no scleral icterus. Oral mucous membrane is dry. NECK: Trachea central, no thyromegaly. LUNGS: Unlabored breathing. Clear to auscultation anteriorly. No wheeze or crackle. HEART: S1, S2, regular rate and rhythm. No loud murmur ABDOMEN: Soft, no tenderness , guarding or rigidity, no organomegaly EXTREMITIES: No edema of feet. SKIN: Left forearm with a circular rash central clearing and some surrounding redness or any drainage NEUROLOGICAL: The patient is awake, alert, oriented x3, mood and affect normal. Results CBC & Chem 7: 02/03/23 05:00 02/09/23 05:58 Labs: Abnormal Lab Results - Last 24 Hours (Table) 02/08/23 02/09/23 02/09/23 Range/Units 17:12 08:01 12:14 POC Glucose (mg/dL) 120 H 262 H 356 H (70-110) mg/dL Assessment and Plan (1) Rash Status: Acute Code(s): R21 - RASH AND OTHER NONSPECIFIC SKIN ERUPTION SNOMED Code(s): 128989824 Plan: 1patient with a rash to the left forearm which seem to be slightly classic for the ringworm manifestation and this patient did have a similar type of rash on the part of the body in the past responded to antifungal cream clinically doubt phlebitis or cellulitis 2-we will apply clotrimazole cream twice a day for about a week 3-no need for systemic antibiotic or antifungal We will follow on clinical condition and cultures to further adjust medication if needed Thank you for this consultation we will follow the patient along with you Time with Patient: Greater than 30
== END 2023-02-09 17:00 | disposition home or self-care (01) | DRG 337 ==
LOC: EC 04:41 → OBSVTOIN 06:22 → 4SSUR 06:22 → 6NMEDSUR 08:24
PROVIDERS: ADMIT Hospitalist; ATTEND Hospitalist
PROC: 0DNF4ZZ Release Right Large Intestine, Percutaneous Endoscopic Approach (ICD-10-PCS; 2023-02-07)
PROC: 0DNH4ZZ Release Cecum, Percutaneous Endoscopic Approach (ICD-10-PCS; principal; 2023-02-07 10:20)
DX: K66.0 Peritoneal adhesions (postprocedural) (postinfection) (principal); E11.649 Type 2 diabetes mellitus with hypoglycemia without coma; E66.9 Obesity, unspecified; Z68.38 Body mass index [BMI] 38.0-38.9, adult; I48.91 Unspecified atrial fibrillation; D72.819 Decreased white blood cell count, unspecified; E11.65 Type 2 diabetes mellitus with hyperglycemia; B36.9 Superficial mycosis, unspecified; I10 Essential (primary) hypertension; E78.5 Hyperlipidemia, unspecified; G89.29 Other chronic pain; M79.7 Fibromyalgia; R94.31 Abnormal electrocardiogram [ECG] [EKG]; Z20.822 Contact with and (suspected) exposure to COVID-19; Z87.19 Personal history of other diseases of the digestive system; Z86.73 Personal history of transient ischemic attack (TIA), and cerebral infarction without residual deficits; Z86.19 Personal history of other infectious and parasitic diseases; Z88.1 Allergy status to other antibiotic agents; Z79.4 Long term (current) use of insulin; Z88.8 Allergy status to other drugs, medicaments and biological substances; Z79.899 Other long term (current) drug therapy; Z79.01 Long term (current) use of anticoagulants; Z79.82 Long term (current) use of aspirin; Z79.85 Long-term (current) use of injectable non-insulin antidiabetic drugs; I25.2 Old myocardial infarction; Z28.310 Unvaccinated for COVID-19
CPT/HCPCS: 36415; 71275; 74018; 74174; 74176; 80048; 80053; 80061; 80076; 83036; 84132; 84484; 85025; 85610; 85730; 87635; 93005; 94640; 94760; 99285

== ENCOUNTER → 2023-02-16 | Outpatient (CLI) | payer MEDICARE, OTHER ==
--- NOTE | 2023-02-22 08:19 | MM ---
Reason for Exam: Screening (asymptomatic). Last mammogram was performed 2 year(s) and 3 month(s) ago. Patient History: Menarche at age 12. First Full-Term at age 28. Hysterectomy at age 36. Postmenopausal. Mother had ovarian cancer. Risk Values: Susie 5 year model risk: 1.2%. NCI Lifetime model risk: 9.6%. Prior Study Comparison: 10/31/2020 Bilateral Screening Mammogram, [facility] . Tissue Density: There are scattered fibroglandular densities. Findings: Analyzed By CAD. There is no suspicious group of microcalcifications or new suspicious mass in either breast. Overall Assessment: Benign, BI-RAD 2 Management: Screening Mammogram of both breasts in 1 year. A clinical breast exam by your physician is recommended on an annual basis and results should be correlated with mammographic findings. Electronically signed and approved by: Alfa Pool M.D. Radiologis
== END | disposition home or self-care (01) ==
LOC: RADMAMWWP 11:00
PROVIDERS: ATTEND Family Medicine
DX: Z12.31 Encounter for screening mammogram for malignant neoplasm of breast (principal); Z78.0 Asymptomatic menopausal state
CPT/HCPCS: 77063; 77067

== ENCOUNTER → 2023-02-17 | Outpatient (CLI) | payer MEDICARE, OTHER ==
--- NOTE | 2023-02-17 12:03 | XR ---
EXAMINATION TYPE: XR chest 2V DATE OF EXAM: 02/17/2023 11:50 AM COMPARISON: Chest radiographs from 12/08/2022 TECHNIQUE: XR chest 2V Frontal and lateral views of the chest. CLINICAL INDICATION:Female, 52 years old with history of R07.89 Other chest pain; FINDINGS: Lungs/Pleura: There is no evidence of pleural effusion, focal consolidation, or pneumothorax. Pulmonary vascularity: Unremarkable. Heart/mediastinum: Cardiomediastinal silhouette is unremarkable. Musculoskeletal: No acute osseous pathology. IMPRESSION: No acute cardiopulmonary disease/process.
== END | disposition home or self-care (01) ==
LOC: RADXRMAIN 11:37
PROVIDERS: ATTEND Nurse Practitioner Family
DX: R07.89 Other chest pain (principal)
CPT/HCPCS: 71046

== ENCOUNTER 2023-02-24 08:04 | Day surgery (SDC) | payer MEDICARE, OTHER ==
[~2023-02-24 08:04] MED LIST changes: -DOBUTamine DRIP for NUC MED 500 MG/250 ML BAG IV ONE; +LACTATED RINGERS 1,000 ML IV SCH
[2023-02-24 08:40] VITALS: TEMP 97.1
[2023-02-24] MEDS ORDERED: LACTATED RINGERS 1,000 ML IV ONE (08:45)
[2023-02-24 08:47] LABS: Glucose,Whole Blood 194 mg/dL (70-110)
[2023-02-24] MEDS ORDERED: PROPOFOL 10 MG/ML 20 ML VIAL IV ONE (08:51)
--- NOTE | 2023-02-24 09:09 | P.OP ---
Date of Procedure: 02/24/23 Preoperative Diagnosis: History of colon polyps Postoperative Diagnosis: Mild diverticulosis Procedure(s) Performed: Colonoscopy Anesthesia: MAC Surgeon: Aaron Eckert Pathology: none sent Condition: stable Disposition: PACU Description of Procedure: The patient was placed on the endoscopy table in the lateral position. She received IV sedation. Digital rectal exam was performed. This revealed no abnormalities. The flexible colonoscope was then placed patient anus and passed throughout the entire colon. The ileocecal valve was visually is. The cecum, ascending and transverse colon appeared normal. In the descending and sigmoid colon there is mild diverticular changes. Scope summer back the rectum and this appeared normal. Scope withdrawn for patient.
[2023-02-24 09:18] VITALS: PULSE 86
[2023-02-24 09:26] VITALS: BP 107/71; RESP 20
== END 2023-02-24 09:57 | disposition home or self-care (01) ==
LOC: ORWHC2ENDO 08:04
PROVIDERS: ATTEND Surgery
DX: Z12.11 Encounter for screening for malignant neoplasm of colon (principal); K57.30 Diverticulosis of large intestine without perforation or abscess without bleeding; Z86.010 Personal history of colon polyps; I25.2 Old myocardial infarction; I10 Essential (primary) hypertension; E78.5 Hyperlipidemia, unspecified; J44.9 Chronic obstructive pulmonary disease, unspecified; J45.909 Unspecified asthma, uncomplicated; F12.90 Cannabis use, unspecified, uncomplicated; M79.7 Fibromyalgia; K21.9 Gastro-esophageal reflux disease without esophagitis; Z86.73 Personal history of transient ischemic attack (TIA), and cerebral infarction without residual deficits; K74.60 Unspecified cirrhosis of liver; F10.20 Alcohol dependence, uncomplicated; Z79.51 Long term (current) use of inhaled steroids; Z79.899 Other long term (current) drug therapy; Z79.1 Long term (current) use of non-steroidal anti-inflammatories (NSAID)
CPT/HCPCS: G0121; J2704; 45378

== ENCOUNTER 2023-02-28 11:08 | Emergency (ER) | payer MEDICARE, OTHER ==
[2023-02-28 11:32] VITALS: RESP 18; TEMP 97.3
[2023-02-28] MEDS ORDERED: ONDANSETRON 4 MG/2 ML VIAL IVP STA (12:10)
[2023-02-28] MEDS ORDERED: PANTOPRAZOLE 40 MG/10 ML VIAL IVP STA (12:10)
[2023-02-28] MEDS ORDERED: SODIUM CHLORIDE 0.9% 1,000 ML IV STA (12:10)
[2023-02-28] MEDS ORDERED: MORPHINE SULFATE 4 MG/ML SYRINGE IVP STA (12:12)
[2023-02-28 13:25] LABS: Basophils % (A) 0 %; Eosinophils # (A) 0.1 k/uL (0-0.7); Eosinophils % (A) 3 %; HCT 38.6 % (34.0-46.0); HGB 12.7 gm/dL (11.4-16.0); Lymphocytes # (A) 0.9 k/uL (1.0-4.8); Lymphocytes % (A) 30 %; MCH 28.8 pg (25.0-35.0); MCV 87.3 fL (80.0-100.0); Mean Platelet Volume 7.6; Monocytes # (A) 0.2 k/uL (0-1.0); Monocytes % (A) 6 %; Neutrophils # (A) 1.8 k/uL (1.3-7.7); Neutrophils % (A) 58 %; Platelet Count 192 k/uL (150-450); RBC 4.42 m/uL (3.80-5.40); RDW 12.9 % (11.5-15.5); WBC 3.1 k/uL (3.8-10.6)
[2023-02-28 13:27] LABS: ALT 27 U/L (4-34); Alkaline Phosphatase 118 U/L (38-126); Lipase 73 U/L (23-300)
[2023-02-28 13:35] LABS: INR 0.9 (<1.2); Partial Thromboplastin Time 27.6 sec (22.0-30.0); Prothrombin Time 9.9 sec (9.0-12.0)
[2023-02-28 13:46] LABS: AST 19 U/L (14-36); African American GFR (CKD) >90 (>60 ml/min/1.73 sqM); Albumin 3.8 g/dL (3.5-5.0); Amylase <30 U/L (30-110); Anion Gap 7 mmol/L; Blood Urea Nitrogen 13 mg/dL (7-17); Calcium 8.8 mg/dL (8.4-10.2); Carbon Dioxide 26 mmol/L (22-30); Chloride 108 mmol/L (98-107); Glucose 100 mg/dL (74-99); Non-African American GFR(CKD) >90 (>60 ml/min/1.73 sqM); Potassium 4.1 mmol/L (3.5-5.1); Sodium 141 mmol/L (137-145); Total Bilirubin 0.3 mg/dL (0.2-1.3); Total Protein 6.2 g/dL (6.3-8.2)
[2023-02-28 14:40] LABS: Appearance,Urine Clear (Clear); Bilirubin,Urine Negative (Negative); Blood,Urine Negative (Negative); Color,Urine Yellow; Glucose,Urine (UA) Trace (Negative); Ketones,Urine Negative (Negative); Leukocyte Esterase,Urine Negative (Negative); Nitrite,Urine Negative (Negative); Protein,Urine Negative (Negative); Specific Gravity,Urine 1.014 (1.001-1.035); Urobilinogen,Urine <2.0 mg/dL (<2.0)
[2023-02-28 14:59] LABS: Glucose,Whole Blood 61 mg/dL (70-110)
--- NOTE | 2023-02-28 15:22 | CT ---
EXAMINATION TYPE: CT abdomen pelvis w con DATE OF EXAM: 02/28/2023 COMPARISON: 02/04/2023 INDICATION: pain from laparotomy incisions DLP: 2249 mGycm, Automated exposure control for dose reduction was used. CONTRAST: 100 mL of Isovue 300. Study performed without Oral Contrast TECHNIQUE: Axial images were obtained from above the diaphragm to the pubic rami in the axial plane a t 5 mm thick sections. Reconstructed images are reviewed on the computer in the coronal plane. FINDINGS: Limited CT sections are obtained the lung bases. The lung bases are clear. CT ABDOMEN: Liver: There is mild fatty infiltration of the liver. Spleen: Normal Pancreas: Normal Adrenal glands: The adrenal glands are normal. Gallbladder: Surgically absent Kidneys: No masses are evident. No hydronephrosis is present. No cysts are present. Delayed images were obtained through the kidneys, which remain unremarkable. Aorta: Vascular calcification is within the aorta. Inferior vena cava: Normal. CT PELVIS: Subcutaneous tissues appear normal. No suspicious signal abnormality within the subcutaneo us tissues to suggest abscess or herniation. The left laparotomy tract may be present within the left mid abdomen. Series 201 image 51. This is an interval change from 02/04/2023. Loops of bowel within the abdomen and pelvis are normal. Study is performed without oral contrast limiting bowel evaluation. Appendix: There appears to be a prior appendectomy. Urinary bladder: Partially decompressed. Normal as visualized. Genitourinary structures: Uterus and ovaries are not identified. Osseous structures: No suspicious lytic or sclerotic lesions. IMPRESSIONS: 1. No suspicious acute abnormality. What may be a laparoscopic tract is in the subcutaneous tissues left midabdomen.
[2023-02-28] MEDS ORDERED: dexAMETHasone 4 MG TAB PO STA (15:43)
--- NOTE | 2023-02-28 16:02 | XR ---
EXAMINATION TYPE: XR chest 1V portable DATE OF EXAM: 02/28/2023 3:58 PM COMPARISON: Chest radiographs from 02/17/2023 TECHNIQUE: XR chest 1V portable Portable AP radiograph of the chest. CLINICAL INDICATION:Female, 52 years old with history of cough; FINDINGS: Lungs/Pleura: There is no evidence of pleural effusion, focal consolidation, or pneumothorax. Pulmonary vascularity: Unremarkable. Heart/mediastinum: Cardiomediastinal silhouette is unremarkable. Musculoskeletal: No acute osseous pathology. IMPRESSION: No acute cardiopulmonary disease/process.
--- NOTE | 2023-02-28 16:05 | ED ---
General Adult HPI - General Chief complaint: Abdominal Pain Stated complaint: abdominal pain Time Seen by Provider: 02/28/23 12:00 Source: patient, RN notes reviewed, old records reviewed Mode of arrival: ambulatory Limitations: no limitations - History of Present Illness Initial comments: Patient is a 52-year-old female with past medical history remarkable for asthma, angina, diabetes, fibromyalgia, hypertension who presents to the emergency department with multiple complaints. Has been having cough, upper respiratory congestion for the last few days. With all this coughing, she gets a chest tightness sensation that is generalized over her chest. Denies any shortness of breath. Denies any abdominal pain, nausea, vomiting. Unknown what is causing the cough. Denies any fevers or sick contacts. Patient states that with all the coughing she was also having abdominal discomfort, and she recently had a laparoscopy and is concerned because the pain was near the sites of the incisions. She denies any urinary complaints. He does endorse some left lower quadrant abdominal discomfort primarily with a history of diverticulosis. Endorses some diarrhea that is nonbloody. Denies any nausea or vomiting. Has no other acute complaints at this time. Presents for further evaluation at this time. - Related Data Home Medications Medication Instructions Recorded Confirmed ARIPiprazole [Abilify] 10 mg PO DAILY 11/15/22 02/28/23 Albuterol Sulfate [Albuterol 2 puff INHALATION RT-Q6H PRN 11/15/22 02/28/23 Sulfate Hfa] Amitriptyline HCl [Elavil] 25 mg PO HS 11/15/22 02/28/23 Apixaban [Eliquis] 5 mg PO BID 11/15/22 02/28/23 Atorvastatin Calcium [Lipitor] 40 mg PO DAILY 11/15/22 02/28/23 Dulaglutide [Trulicity] 3 mg SQ TH 11/15/22 02/28/23 Erenumab-Aooe [Aimovig 70 mg SQ QMONTHLY 11/15/22 02/28/23 Autoinjector] Insulin Aspart [NovoLOG Flexpen] 17 units SQ AC-TID 11/15/22 02/28/23 Insulin Aspart [NovoLOG Flexpen] See Protocol SQ AC-TID 11/15/22 02/28/23 Magnesium Oxide 400 mg PO DAILY 11/15/22 02/28/23 Montelukast Sodium [Singulair] 10 mg PO HS 11/15/22 02/28/23 Nitroglycerin Sl Tabs [Nitrostat] 0.4 mg SUBLINGUAL Q5M PRN 11/15/22 02/28/23 Omeprazole 40 mg PO BID 11/15/22 02/28/23 Ranolazine [Ranolazine ER] 500 mg PO BID 11/15/22 02/28/23 Topiramate [Topamax] 100 mg PO BID 11/15/22 02/28/23 clonazePAM [KlonoPIN] 1 mg PO BID 11/15/22 02/28/23 dilTIAZem HCL [dilTIAZem USR05Ln 240 mg PO DAILY 11/15/22 02/28/23 ER (CD)] methocarbamoL [Robaxin] 500 mg PO TID PRN 11/15/22 02/28/23 Isosorbide Mononitrate ER [Imdur] 60 mg PO DAILY 12/08/22 02/28/23 DULoxetine HCL [Cymbalta] 30 mg PO HS 02/03/23 02/28/23 DULoxetine HCL [Cymbalta] 60 mg PO HS 02/03/23 02/28/23 Insulin Detemir [Levemir Flextouch 20 units SQ HS 02/21/23 02/28/23 Pen] Multivitamins, Thera [Multivitamin 1 tab PO DAILY 02/28/23 02/28/23 (formulary)] Previous Rx's Medication Instructions Recorded HYDROcodone/APAP 7.5-325MG [Bronson 1 tab PO Q6HR PRN 3 Days #10 tab 02/09/23 7.5-325] Allergies Allergy/AdvReac Type Severity Reaction Status Date / Time adhesive Allergy red skin Verified 02/28/23 12:23 trimethobenzamide Allergy Rash/Hives Verified 02/28/23 12:23 [From Tigan] vancomycin Allergy Rash/Hives Verified 02/28/23 12:23 Review of Systems ROS Statement: Those systems with pertinent positive or pertinent negative responses have been documented in the HPI. Review of Systems: CONST: Denies fever EYES: Denies blurry vision ENT: Endorses cough C/V: Denies Chest pain RESP: Endorses cough GI: Endorses left-sided abdominal discomfort near the site of a laparoscopy incision from 2 weeks ago : Denies dysuria SKIN: Denies rash. MSK: Denies joint pain. NEURO: Denies headache ROS Other: All systems not noted in ROS Statement are negative. Past Medical History Past Medical History: Asthma, Chest Pain / Angina, CVA/TIA, Diabetes Mellitus, Deep Vein Thrombosis (DVT), Fibromyalgia, GERD/Reflux, Hyperlipidemia, Hypertension, Liver Disease, Myocardial Infarction ([place]) Additional Past Medical History / Comment(s): fibomyalgia, light weakness on left after stroke coming back. mild [place] from EKG unknown time. will test for Sleep apnea. has scd at home. recent blood in stools. non alcoholic fatty liver,, diverticulosis. Last Myocardial Infarction Date:: unk History of Any Multi-Drug Resistant Organisms: None Reported, C-DIFF Date of last positivie culture/infection: 2019 MDRO Source:: stool Past Surgical History: Appendectomy, Cholecystectomy, Hysterectomy, Orthopedic Surgery Additional Past Surgical History / Comment(s): left knee replaced. left rotator cuff repair . rt hip stretched bursa. colonoscopies, laproscopic surgery to remove abdominal adhesions. Past Anesthesia/Blood Transfusion Reactions: Postoperative Nausea & Vomiting (PONV) Additional Past Anesthesia/Blood Transfusion Reaction / Comment(s): with lap procedure had a hard time waking up. Past Psychological History: Bipolar, Depression Smoking Status: Never smoker - Past Family History Mother Family Medical History: Cancer Additional Family Medical History / Comment(s): uterine Father Family Medical History: Cancer Additional Family Medical History / Comment(s): lung General Exam Limitations: no limitations Course Vital Signs 02/28/23 02/28/23 11:25 13:11 Temperature 97.3 F L Pulse Rate 92 78 Respiratory 18 18 Rate Blood Pressure 139/78 104/78 O2 Sat by Pulse 97 98 Oximetry Medical Decision Making - Medical Decision Making Was pt. sent in by a medical professional or institution (, PA, WATER QUALITY MANAGER, urgent care, hospital, or correction...) When possible be specific @ -No Did you speak to anyone other than the patient for history (EMS, parent, family, police, friend...)? What history was obtained from this source @ -No Did you review nursing and triage notes (agree or disagree)? Why? @ -I reviewed and agree with nursing and triage notes Were old charts reviewed (outside hosp., previous admission, EMS record, old EKG, old radiological studies, urgent care reports/EKG's, correction records)? Report findings @ -Old charts reviewed including EKGs January 2023 Differential Diagnosis (chest pain, altered mental status, abdominal pain women, abdominal pain men, vaginal bleeding, weakness, fever, dyspnea, syncope, heada rita, dizziness, GI bleed, back pain, seizure, CVA, palpatations, mental health, musculoskeletal)? @ -. Differential Abdominal Pain Women: Appendicitis, Cholecystitis, diverticulosis, ischemic bowel, pancreatitis, hepatitis, UTI, gastroenteritis, AAA, incarcerated hernia, bowel obstruction, constipation, inflammatory bowel, hepatitis, peptic ulcer disease, splenic infarction, perforated viscus, vulvitis, ovarian torsion, PID, kidney stone, placenta abruption, viral syndrome, atypical chest pain, muscle strains this is not meant to be an all-inclusive list EKG interpreted by me (3pts min.). @ -As above X-rays interpreted by me (1pt min.). @ -Chest x-ray reveals no obvious acute cardio pulmonary process. CT interpreted by me (1pt min.). @ -CT abdomen and pelvis reveals no obvious acute intracranial process. U/S interpreted by me (1pt. min.). @ -None done What testing was considered but not performed or refused? (CT, X-rays, U/S, labs)? Why? @ -None What meds were considered but not given or refused? Why? @ -None Did you discuss the management of the patient with other professionals (professionals i.e. , PA, WATER QUALITY MANAGER, lab, RT, psych nurse, social sciences chair, office machines teacher, teacher, air defence officer, skilled nursing case manager)? Give summary @ -No Was smoking cessation discussed for >3mins.? @ -No Was critical care preformed (if so, how long)? @ -No Were there social determinants of health that impacted care today? How? (Homelessness, low income, unemployed, alcoholism, drug addiction, transportation, low edu. Level, literacy, decrease access to med. care, assisted, rehab)? @ -No Was there de-escalation of care discussed even if they declined (Discuss DNR or withdrawal of care, Hospice)? DNR status @ -No What co-morbidities impacted this encounter? (DM, HTN, Smoking, COPD, CAD, Cancer, CVA, ARF, Chemo, Hep., AIDS, mental health diagnosis, sleep apnea, morbid obesity)? @ -None Was patient admitted / discharged? Hospital course, mention meds given and route, prescriptions, significant lab abnormalities, going to OR and other pertinent info. @ -Based on the patient's presentation and physical exam, she presents over concern for abdominal pain as well as congestion and coughing. Coughing is causing atypical chest pain with this tightness sensation and only present when she coughs. This is likely secondary to muscle strains and she states she is coughing a lot. Also complaining of left-sided abdominal pain. We will obtain abdominal laboratory studies, chest x-ray, screening EKG, as well as CT abdomen and pelvis. Patient was in agreement this plan. Vital signs within acceptable limits. EKG unremarkable. Chest x-ray shows no acute cardiopulmonary process is obvious. CT of the pelvis also reveals no obvious process. She does have a tract for maybe recent laparoscopy which is uncomplicated. Laboratory studies were remarkable for a leukopenia of 3.1 which is chronic for the patient. Patient was found to be hypoglycemic which improves with food. Remainder of the labs are within acceptable limits. Lactic acid is within normal limits.Was a long delay in obtaining imaging due to demand which delayed disposition. On reevaluation, patient is feeling improved. We did discuss her results. Likely has a viral syndrome. Likely also has some muscle strains and sprains from coughing hard. She was in agreement with this assessment. She will be given a small dose of the steroid as well as strict return precautions per she'll be discharge home at this time with strict follow-up instructions with her PCP. She was in agreement this plan. I instructed the patient to follow up with their PCP in the next 1-3 days. I explained that the patient should return to the emergency department if they experience any worsening symptoms. Strict return precautions were discussed with the patient. The patient expressed understanding of these instructions. I an swered all questions that the patient had. The patient was discharged home in good condition with their prescriptions and follow up information. Undiagnosed new problem with uncertain prognosis? @ -No Drug Therapy requiring intensive monitoring for toxicity (Heparin, Nitro, Insulin, Cardizem)? @ -No Were any procedures done? @ -No Diagnosis/symptom? @ -Viral syndrome, cough Acute, or Chronic, or Acute on Chronic? @ -Acute Uncomplicated (without systemic symptoms) or Complicated (systemic symptoms)? @ -Uncomplicated Side effects of treatment? @ -No Exacerbation, Progression, or Severe Exacerbation? @ -No Poses a threat to life or bodily function? How? (Chest pain, [place], [place], pneumonia, PE, COPD, DKA, ARF, appy, cholecystitis, CVA, Diverticulitis, Homicidal, Suicidal, threat to staff... and all critical care pts) @ -No Diagnosis/symptom? @ -Abdominal pain of unknown etiology, likely muscle strains Acute, or Chronic, or Acute on Chronic? @ -Acute Uncomplicated (without systemic symptoms) or Complicated (systemic symptoms)? @ -Uncomplicated Side effects of treatment? @ -none Exacerbation, Progression, or Severe Exacerbation] @ -no Poses a threat to life or bodily function? @ -no - Lab Data Result diagrams: 02/28/23 12:23 02/28/23 12: Lab Results 02/28/23 02/28/23 02/28/23 Range/Units 12:23 12: 12: WBC 3.1 L (3.8-10.6) k/uL RBC 4.42 (3.80-5.40) m/uL Hgb 12.7 (11.4-16.0) gm/dL Hct 38.6 (34.0-46.0) % MCV 87.3 (80.0-100.0) fL MCH 28.8 (25.0-35.0) pg MCHC 33.0 (31.0-37.0) g/dL RDW 12.9 (11.5-15.5) % Plt Count 192 (150-450) k/uL MPV 7.6 Neutrophils % 58 % Lymphocytes % 30 % Monocytes % 6 % Eosinophils % 3 % Basophils % 0 % Neutrophils # 1.8 (1.3-7.7) k/uL Lymphocytes # 0.9 L (1.0-4.8) k/uL Monocytes # 0.2 (0-1.0) k/uL Eosinophils # 0.1 (0-0.7) k/uL Basophils # 0.0 (0-0.2) k/uL PT 9.9 (9.0-12.0) sec INR 0.9 (<1.2) APTT 27.6 (22.0-30.0) sec Sodium (137-145) mmol/L Potassium (3.5-5.1) mmol/L Chloride (98-107) mmol/L Carbon Dioxide (22-30) mmol/L Anion Gap mmol/L BUN (7-17) mg/dL Creatinine (0.52-1.04) mg/dL Est GFR (CKD-EPI)AfAm (>60 ml/min/1.73 sqM) Est GFR (CKD-EPI)NonAf (>60 ml/min/1.73 sqM) Glucose (74-99) mg/dL POC Glucose (mg/dL) (70-110) mg/dL POC Glu Subcontract Administrator ID Plasma Lactic Acid Rivera (0.7-2.0) mmol/L Calcium (8.4-10.2) mg/dL Total Bilirubin (0.2-1.3) mg/dL AST (14-36) U/L ALT (4-34) U/L Alkaline Phosphatase (38-126) U/L Total Protein (6.3-8.2) g/dL Albumin (3.5-5.0) g/dL Amylase (30-110) U/L Lipase (23-300) U/L Urine Color Yellow Urine Appearance Clear (Clear) Urine pH 7.0 (5.0-8.0) Ur Specific [place] 1.014 (1.001-1.035) Urine Protein Negative (Negative) Urine Glucose (UA) Trace H (Negative) Urine Ketones Negative (Negative) Urine Blood Negative (Negative) Urine Nitrite Negative (Negative) Urine Bilirubin Negative (Negative) Urine Urobilinogen <2.0 (<2.0) mg/dL Ur Leukocyte Esterase Negative (Negative) Influenza Type A (PCR) (Not Detectd) Influenza Type B (PCR) (Not Detectd) RSV (PCR) (Not Detectd) SARS-CoV-2 (PCR) (Not Detectd) 02/28/23 02/28/23 02/28/23 Range/Units 12: 12: 12:23 WBC (3.8-10.6) k/uL RBC (3.80-5.40) m/uL Hgb (11.4-16.0) gm/dL Hct (34.0-46.0) % MCV (80.0-100.0) fL MCH (25.0-35.0) pg MCHC (31.0-37.0) g/dL RDW (11.5-15.5) % Plt Count (150-450) k/uL MPV Neutrophils % % Lymphocytes % % Monocytes % % Eosinophils % % Basophils % % Neutrophils # (1.3-7.7) k/uL Lymphocytes # (1.0-4.8) k/uL Monocytes # (0-1.0) k/uL Eosinophils # (0-0.7) k/uL Basophils # (0-0.2) k/uL PT (9.0-12.0) sec INR (<1.2) APTT (22.0-30.0) sec Sodium 141 (137-145) mmol/L Potassium 4.1 (3.5-5.1) mmol/L Chloride 108 H (98-107) mmol/L Carbon Dioxide 26 (22-30) mmol/L Anion Gap 7 mmol/L BUN 13 (7-17) mg/dL Creatinine 0.74 (0.52-1.04) mg/dL Est GFR (CKD-EPI)AfAm >90 (>60 ml/min/1.73 sqM) Est GFR (CKD-EPI)NonAf >90 (>60 ml/min/1.73 sqM) Glucose 100 H (74-99) mg/dL POC Glucose (mg/dL) (70-110) mg/dL POC Glu Subcontract Administrator ID Plasma Lactic Acid Rivera 0.9 (0.7-2.0) mmol/L Calcium 8.8 (8.4-10.2) mg/dL Total Bilirubin 0.3 (0.2-1.3) mg/dL AST 19 (14-36) U/L ALT 27 (4-34) U/L Alkaline Phosphatase 118 (38-126) U/L Total Protein 6.2 L (6.3-8.2) g/dL Albumin 3.8 (3.5-5.0) g/dL Amylase <30 L (30-110) U/L Lipase 73 (23-300) U/L Urine Color Urine Appearance (Clear) Urine pH (5.0-8.0) Ur Specific [place] (1.001-1.035) Urine Protein (Negative) Urine Glucose (UA) (Negative) Urine Ketones (Negative) Urine Blood (Negative) Urine Nitrite (Negative) Urine Bilirubin (Negative) Urine Urobilinogen (<2.0) mg/dL Ur Leukocyte Esterase (Negative) Influenza Type A (PCR) Not Detected (Not Detectd) Influenza Type B (PCR) Not Detected (Not Detectd) RSV (PCR) Not Detected (Not Detectd) SARS-CoV-2 (PCR) Not Detected (Not Detectd) 02/28/23 Range/Units 14:56 WBC (3.8-10.6) k/uL RBC (3.80-5.40) m/uL Hgb (11.4-16.0) gm/dL Hct (34.0-46.0) % MCV (80.0-100.0) fL MCH (25.0-35.0) pg MCHC (31.0-37.0) g/dL RDW (11.5-15.5) % Plt Count (150-450) k/uL MPV Neutrophils % % Lymphocytes % % Monocytes % % Eosinophils % % Basophils % % Neutrophils # (1.3-7.7) k/uL Lymphocytes # (1.0-4.8) k/uL Monocytes # (0-1.0) k/uL Eosinophils # (0-0.7) k/uL Basophils # (0-0.2) k/uL PT (9.0-12.0) sec INR (<1.2) APTT (22.0-30.0) sec Sodium (137-145) mmol/L Potassium (3.5-5.1) mmol/L Chloride (98-107) mmol/L Carbon Dioxide (22-30) mmol/L Anion Gap mmol/L BUN (7-17) mg/dL Creatinine (0.52-1.04) mg/dL Est GFR (CKD-EPI)AfAm (>60 ml/min/1.73 sqM) Est GFR (CKD-EPI)NonAf (>60 ml/min/1.73 sqM) Glucose (74-99) mg/dL POC Glucose (mg/dL) 61 L (70-110) mg/dL POC Glu Subcontract Administrator ID Harvey, Tigre Plasma Lactic Acid Rivera (0.7-2.0) mmol/L Calcium (8.4-10.2) mg/dL Total Bilirubin (0.2-1.3) mg/dL AST (14-36) U/L ALT (4-34) U/L Alkaline Phosphatase (38-126) U/L Total Protein (6.3-8.2) g/dL Albumin (3.5-5.0) g/dL Amylase (30-110) U/L Lipase (23-300) U/L Urine Color Urine Appearance (Clear) Urine pH (5.0-8.0) Ur Specific [place] (1.001-1.035) Urine Protein (Negative) Urine Glucose (UA) (Negative) Urine Ketones (Negative) Urine Blood (Negative) Urine Nitrite (Negative) Urine Bilirubin (Negative) Urine Urobilinogen (<2.0) mg/dL Ur Leukocyte Esterase (Negative) Influenza Type A (PCR) (Not Detectd) Influenza Type B (PCR) (Not Detectd) RSV (PCR) (Not Detectd) SARS-CoV-2 (PCR) (Not Detectd) - EKG Data -: EKG Interpreted by Me EKG Comments: 12-lead Electrocardiogram Interpretation Note EKG was reviewed and interpreted by myself. 12-lead ECG performed at 1129 is interpreted by me as revealing normal sinus rhythm at a rate of 89 beats per minute. [place] is normal. [place] interval is 152 ms, QRS duration is 91 ms, QTc is 400 ms.. There were no ST or T wave abnormalities to suggest myocardial ischemia or injury. R wave progression across the precordium was satisfactory. By my interpretation this EKG is non-diagnostic for acute ischemia. When compared with EKG from January 2023, no significant change. Disposition Clinical Impression: Cough, Viral syndrome, Abdominal pain of unknown cause, Muscle strain Disposition: HOME SELF-CARE Condition: Good Instructions (If sedation given, give patient instructions): Abdominal Pain (ED), Viral Syndrome (ED) Is patient prescribed a controlled substance at d/c from ED?: No Referrals: Brayden Valdovinos DO [Primary Care Provider] - 1-2 days Time of Disposition: 16:05
[2023-02-28 16:07] LABS: Glucose,Whole Blood 96 mg/dL (70-110)
[2023-02-28 16:42] VITALS: BP 113/72; PULSE 77
== END 2023-02-28 16:42 | disposition home or self-care (01) ==
LOC: EC 11:08
DX: T14.8XXA Other injury of unspecified body region, initial encounter (principal); R05.9 Cough, unspecified; B34.9 Viral infection, unspecified; R10.9 Unspecified abdominal pain; J45.909 Unspecified asthma, uncomplicated; E11.9 Type 2 diabetes mellitus without complications; K21.9 Gastro-esophageal reflux disease without esophagitis; E78.5 Hyperlipidemia, unspecified; I10 Essential (primary) hypertension; I25.2 Old myocardial infarction; F31.9 Bipolar disorder, unspecified; Z86.73 Personal history of transient ischemic attack (TIA), and cerebral infarction without residual deficits; Z79.84 Long term (current) use of oral hypoglycemic drugs; Z79.01 Long term (current) use of anticoagulants; Z79.4 Long term (current) use of insulin; Z79.899 Other long term (current) drug therapy; Z91.09 Other allergy status, other than to drugs and biological substances; Z88.2 Allergy status to sulfonamides; Z88.8 Allergy status to other drugs, medicaments and biological substances; Z20.822 Contact with and (suspected) exposure to COVID-19
CPT/HCPCS: 36415; 93005; 80053; 82150; 83605; 83690; 85025; 85610; 85730; 81003; 87636; 71045; 74177; 99285; 96374; 96375 ×2; 96361 ×4; J8540; J2270; J2405; C9113; Q9967

== ENCOUNTER 2023-03-07 15:46 | Observation (INO) | payer MEDICARE, OTHER ==
[2023-03-07] MEDS ORDERED: SODIUM CHLORIDE 0.9% 500 ML 500 ML IV STA (16:31)
--- NOTE | 2023-03-07 16:43 | ED ---
General Adult HPI - General Chief complaint: Neuro Symptoms/Deficit Stated complaint: poss TIA Time Seen by Provider: 03/07/23 16:26 Source: EMS Mode of arrival: EMS Limitations: no limitations - History of Present Illness Initial comments: Dictation was produced using [employer] dictation software. please excuse any grammatical, word or spelling errors. Chief Complaint: 52-year-old female presents with strokelike symptoms starting 1 hour ago History of Present Illness: Is 52-year-old female presents emergency department. Like symptoms. Patient claims slurred speech and left upper chin any weakness. She reports she has a history of stroke. Patient takes and a coagulation medications. She states that she received thrombolytics in the past. Denies any pain. The ROS documented in this emergency department record has been reviewed and confirmed by me. Those systems with pertinent positive or negative responses have been documented in the HPI. All other systems are other negative and/or noncontributory. - Related Data Home Medications Medication Instructions Recorded Confirmed ARIPiprazole [Abilify] 10 mg PO DAILY 11/15/22 03/07/23 Albuterol Sulfate [Albuterol 2 puff INHALATION RT-Q6H PRN 11/15/22 03/07/23 Sulfate Hfa] Amitriptyline HCl [Elavil] 25 mg PO HS 11/15/22 03/07/23 Apixaban [Eliquis] 5 mg PO BID 11/15/22 03/07/23 Atorvastatin Calcium [Lipitor] 40 mg PO DAILY 11/15/22 03/07/23 Dulaglutide [Trulicity] 3 mg SQ TH 11/15/22 03/07/23 Erenumab-Aooe [Aimovig 70 mg SQ QMONTHLY 11/15/22 03/07/23 Autoinjector] Insulin Aspart [NovoLOG Flexpen] 17 units SQ AC-TID 11/15/22 03/07/23 Insulin Aspart [NovoLOG Flexpen] See Protocol SQ AC-TID 11/15/22 03/07/23 Magnesium Oxide 400 mg PO DAILY 11/15/22 03/07/23 Montelukast Sodium [Singulair] 10 mg PO HS 11/15/22 03/07/23 Nitroglycerin Sl Tabs [Nitrostat] 0.4 mg SUBLINGUAL Q5M PRN 11/15/22 03/07/23 Omeprazole 40 mg PO BID 11/15/22 03/07/23 Ranolazine [Ranolazine ER] 500 mg PO BID 11/15/22 03/07/23 Topiramate [Topamax] 100 mg PO BID 11/15/22 03/07/23 clonazePAM [KlonoPIN] 1 mg PO BID 11/15/22 03/07/23 dilTIAZem HCL [dilTIAZem [id number] 240 mg PO DAILY 11/15/22 03/07/23 ER (CD)] methocarbamoL [Robaxin] 500 mg PO TID PRN 11/15/22 03/07/23 Isosorbide Mononitrate ER [Imdur] 60 mg PO DAILY 12/08/22 03/07/23 DULoxetine HCL [Cymbalta] 30 mg PO HS 02/03/23 03/07/23 DULoxetine HCL [Cymbalta] 60 mg PO HS 02/03/23 03/07/23 Insulin Detemir [Levemir Flextouch 20 units SQ HS 02/21/23 03/07/23 Pen] Multivitamins, Thera [Multivitamin 1 tab PO DAILY 02/28/23 03/07/23 (formulary)] Dicyclomine [Bentyl] 10 mg PO TID 03/07/23 03/07/23 Previous Rx's Medication Instructions Recorded HYDROcodone/APAP 7.5-325MG [[place] 1 tab PO Q6HR PRN 3 Days #10 tab 02/09/23 7.5-325] Allergies Allergy/AdvReac Type Severity Reaction Status Date / Time adhesive Allergy red skin Verified 03/07/23 16:53 trimethobenzamide Allergy Rash/Hives Verified 03/07/23 16:53 [From Tigan] vancomycin Allergy Rash/Hives Verified 03/07/23 16:53 Review of Systems ROS Statement: Those systems with pertinent positive or pertinent negative responses have been documented in the HPI. ROS Other: All systems not noted in ROS Statement are negative. Past Medical History Past Medical History: Asthma, Chest Pain / Angina, CVA/TIA, Diabetes Mellitus, Deep Vein Thrombosis (DVT), Fibromyalgia, GERD/Reflux, Hyperlipidemia, Hypertension, Liver Disease, Myocardial Infarction (ID) Additional Past Medical History / Comment(s): fibomyalgia, light weakness on left after stroke coming back. mild ID from EKG unknown time. will test for Sleep apnea. has scd at home. recent blood in stools. non alcoholic fatty liver,, diverticulosis. Last Myocardial Infarction Date:: unk History of Any Multi-Drug Resistant Organisms: None Reported, C-DIFF Date of last positivie culture/infection: 2019 MDRO Source:: stool Past Surgical History: Appendectomy, Cholecystectomy, Hysterectomy, Orthopedic Surgery Additional Past Surgical History / Comment(s): left knee replaced. left rotator cuff repair . rt hip stretched bursa. colonoscopies, laproscopic surgery to remove abdominal adhesions. Past Anesthesia/Blood Transfusion Reactions: Postoperative Nausea & Vomiting (PONV) Additional Past Anesthesia/Blood Transfusion Reaction / Comment(s): with lap procedure had a hard time waking up. Past Psychological History: Bipolar, Depression Smoking Status: Never smoker Past Alcohol Use History: None Reported Past Drug Use History: None Reported - Past Family History Mother Family Medical History: Cancer Additional Family Medical History / Comment(s): uterine Father Family Medical History: Cancer Additional Family Medical History / Comment(s): lung General Exam - General Exam Comments Initial Comments: PHYSICAL EXAM: General Impression: Alert and oriented x3, not in acute distress HEENT: Normocephalic atraumatic, extra-ocular movements intact, pupils equal and reactive to light bilaterally, mucous membranes moist. Cardiovascular: Heart regular rate and rhythm Chest: Able to complete full sentences, no retractions, no tachypnea Abdomen: abdomen soft, non-tender, non-distended, no organomegaly Musculoskeletal: Pulses present and equal in all extremities, no peripheral edema Motor: no focal deficits noted Neurological: Slurred speech, she complains of sensory deficit to light touch of the left upper and left lower face, left upper extremity is covered over her left arm and dropped in her arm drops at the side. She does have intact sensation to pain of all extremities symmetrically Skin: Intact with no visualized rashes Psych: Normal affect and mood Limitations: no limitations Course Vital Signs 03/07/23 03/07/23 03/07/23 16:20 16:55 17:00 Temperature 97.9 F 98.0 F Pulse Rate 85 80 80 Respiratory 18 16 18 Rate Blood Pressure 142/82 132/76 127/71 O2 Sat by Pulse 97 97 94 L Oximetry 03/07/23 03/07/2303/07/23 17:15 17:30 17:45 Temperature 97.9 F 98.0 F 98.0 F Pulse Rate 79 82 76 Respiratory 18 18 18 Rate Blood Pressure 123/67 136/67 131/69 O2 Sat by Pulse 97 96 97 Oximetry 03/07/23 03/07/23 03/07/23 18:00 18:15 18:30 Temperature 98.0 F 98.1 F 98.1 F Pulse Rate 73 73 73 Respiratory 18 18 18 Rate Blood Pressure 129/74 133/65 126/73 O2 Sat by Pulse 97 96 97 Oximetry 03/07/23 18:58 Temperature Pulse Rate 75 Respiratory 16 Rate Blood Pressure 129/68 O2 Sat by Pulse 99 Oximetry EKG Findings - EKG Comments: EKG Findings:: My EKG interpretation: Ventricular rate 80, sinus rhythm,. 120, QRS 94, QTC 396. No ID prolongation, no QTC prolongation, no ST or T-wave changes noted. Overall, this EKG is unremarkable Medical Decision Making - Medical Decision Making Was pt. sent in by a medical professional or institution (, PA, LEATHER CLEANER, urgent care, hospital, or usp...) When possible be specific @ -No Did you speak to anyone other than the patient for history (EMS, parent, family, police, friend...)? What history was obtained from this source @ - at the bedside reports one patient was last normal Did you review nursing and triage notes (agree or disagree)? Why? @ -I reviewed and agree with nursing and triage notes Were old charts reviewed (outside hosp., previous admission, EMS record, old EKG, old radiological studies, urgent care reports/EKG's, usp records)? Report findings @ -No old charts were reviewed Differential Diagnosis (chest pain, altered mental status, abdominal pain women, abdominal pain men, vaginal bleeding, musculoskeletal, weakness, fever, dyspnea, syncope, headache, dizziness, GI bleed, back pain, seizure, CVA, palpatations, mental health)? @ - Differential CVA: Ischemic stroke, hemorrhagic stroke, brain tumor, atypical migraine, Wernicke's encephalopathy, seizure, multiple sclerosis, meningitis, encephalitis, hypoglycemia, Guillain-Tamayo, electrolytes disturbance, myasthenia gravis.... This is not meant to be an all-inclusive list EKG interpreted by me (3pts min.). @ -See above X-rays interpreted by me (1pt min.). @ -Not acute CT interpreted by me (1pt min.). @ -No acute processes U/S interpreted by me (1pt. min.). @ -None done What testing was considered but not performed or refused? (CT, X-rays, U/S, labs)? Why? @ -None What meds were considered but not given or refused? Why? @ -Alteplase was considered however patient's risks outweigh the benefits. Fur thermore there is reasonably that patient is malingering Did you discuss the management of the patient with other professionals (professionals i.e. , PA, LEATHER CLEANER, lab, RT, psych nurse, social sciences research scientist, data entry email processor, teacher, commercial escrow officer, case management associate)? Give summary @ -Discussed with hospitalist for admission Was smoking cessation discussed for >3mins.? @ -No Was critical care preformed (if so, how long)? @ -No Were there social determinants of health that impacted care today? How? (Homelessness, low income, unemployed, alcoholism, drug addiction, transportation, low edu. Level, literacy, decrease access to med. care, skilled nursing, rehab)? @ -No Was there de-escalation of care discussed even if they declined (Discuss DNR or withdrawal of care, Hospice)? DNR status @ -No What co-morbidities impacted this encounter? (DM, HTN, Smoking, COPD, CAD, Cancer, CVA, ARF, Chemo, Hep., AIDS, mental health diagnosis, sleep apnea, morbid obesity)? @ -None Was patient admitted / discharged? Hospital course, mention meds given and route, prescriptions, significant lab abnormalities, going to OR and other pertinent info. @ -52-year-old female presents with chief complaint of strokelike symptoms started approximately 1 hour prior to arrival. Neurologic exam suggests that patient is malingering. Nonetheless, close stroke was paged. CT, CT angio graphy unremarkable. Rest of workup is essentially negative. Patient be admitted with consultation to neurology. Undiagnosed new problem with uncertain prognosis? @ -No Drug Therapy requiring intensive monitoring for toxicity (Heparin, Nitro, Insulin, Cardizem)? @ -No Were any procedures done? @ -No Diagnosis/symptom? Acute, or Chronic, or Acute on Chronic? Uncomplicated (without systemic symptoms) or Complicated (systemic symptoms)? @ -1. Strokelike symptoms Side effects of treatment? @ -No Exacerbation, Progression, or Severe Exacerbation? @ -No Poses a threat to life or bodily function? How? (Chest pain, USA, ID, pneumonia, PE, COPD, DKA, ARF, appy, cholecystitis, CVA, Diverticulitis, Homicidal, Suicidal, threat to staff... and all critical care pts) @ -No - Lab Data Result diagrams: 03/07/23 16:37 03/07/23 16:37 Lab Results 03/07/23 03/07/23 03/07/23 Range/Units 16:37 16:37 16:37 WBC 4.8 (3.8-10.6) k/uL RBC 4.65 (3.80-5.40) m/uL Hgb 13.8 (11.4-16.0) gm/dL Hct 40.1 (34.0-46.0) % MCV 86.4 (80.0-100.0) fL MCH 29.6 (25.0-35.0) pg MCHC 34.3 (31.0-37.0) g/dL RDW 13.3 (11.5-15.5) % Plt Count 222 (150-450) k/uL MPV 7.6 Neutrophils % 68 % Lymphocytes % 22 % Monocytes % 5 % Eosinophils % 3 % Basophils % 0 % Neutrophils # 3.3 (1.3-7.7) k/uL Lymphocytes # 1.1 (1.0-4.8) k/uL Monocytes # 0.2 (0-1.0) k/uL Eosinophils # 0.1 (0-0.7) k/uL Basophils # 0.0 (0-0.2) k/uL PT 9.4 (9.0-12.0) sec INR 0.9 (<1.2) APTT 26.4 (22.0-30.0) sec Sodium 138 (137-145) mmol/L Potassium 4.8 (3.5-5.1) mmol/L Chloride 106 (98-107) mmol/L Carbon Dioxide 25 (22-30) mmol/L Anion Gap 7 mmol/L BUN 11 (7-17) mg/dL Creatinine 0.60 (0.52-1.04) mg/dL Est GFR (CKD-EPI)AfAm >90 (>60 ml/min/1.73 sqM) Est GFR (CKD-EPI)NonAf >90 (>60 ml/min/1.73 sqM) Glucose 293 H (74-99) mg/dL Calcium 8.9 (8.4-10.2) mg/dL Total Bilirubin 0.3 (0.2-1.3) mg/dL AST 19 (14-36) U/L ALT 24 (4-34) U/L Alkaline Phosphatase 135 H (38-126) U/L Troponin I (0.000-0.034) ng/mL Total Protein 6.2 L (6.3-8.2) g/dL Albumin 3.7 (3.5-5.0) g/dL 03/07/23 Range/Units 16:37 WBC (3.8-10.6) k/uL RBC (3.80-5.40) m/uL Hgb (11.4-16.0) gm/dL Hct (34.0-46.0) % MCV (80.0-100.0) fL MCH (25.0-35.0) pg MCHC (31.0-37.0) g/dL RDW (11.5-15.5) % Plt Count (150-450) k/uL MPV Neutrophils % % Lymphocytes % % Monocytes % % Eosinophils % % Basophils % % Neutrophils # (1.3-7.7) k/uL Lymphocytes # (1.0-4.8) k/uL Monocytes # (0-1.0) k/uL Eosinophils # (0-0.7) k/uL Basophils # (0-0.2) k/uL PT (9.0-12.0) sec INR (<1.2) APTT (22.0-30.0) sec Sodium (137-145) mmol/L Potassium (3.5-5.1) mmol/L Chloride (98-107) mmol/L Carbon Dioxide (22-30) mmol/L Anion Gap mmol/L BUN (7-17) mg/dL Creatinine (0.52-1.04) mg/dL Est GFR (CKD-EPI)AfAm (>60 ml/min/1.73 sqM) Est GFR (CKD-EPI)NonAf (>60 ml/min/1.73 sqM) Glucose (74-99) mg/dL Calcium (8.4-10.2) mg/dL Total Bilirubin (0.2-1.3) mg/dL AST (14-36) U/L ALT (4-34) U/L Alkaline Phosphatase (38-126) U/L Troponin I <0.012 (0.000-0.034) ng/mL Total Protein (6.3-8.2) g/dL Albumin (3.5-5.0) g/dL Disposition Clinical Impression: Stroke-like symptoms Disposition: [facility] Condition: Fair Referrals: Brayden Valdovinos DO [Primary Care Provider] - 1-2 days Decision Time: 18:40
[2023-03-07 16:46] LABS: Basophils % (A) 0 %; Eosinophils # (A) 0.1 k/uL (0-0.7); Eosinophils % (A) 3 %; HCT 40.1 % (34.0-46.0); HGB 13.8 gm/dL (11.4-16.0); Lymphocytes # (A) 1.1 k/uL (1.0-4.8); Lymphocytes % (A) 22 %; MCH 29.6 pg (25.0-35.0); MCHC 34.3 g/dL (31.0-37.0); MCV 86.4 fL (80.0-100.0); Mean Platelet Volume 7.6; Monocytes # (A) 0.2 k/uL (0-1.0); Monocytes % (A) 5 %; Neutrophils # (A) 3.3 k/uL (1.3-7.7); Neutrophils % (A) 68 %; Platelet Count 222 k/uL (150-450); RBC 4.65 m/uL (3.80-5.40); RDW 13.3 % (11.5-15.5); WBC 4.8 k/uL (3.8-10.6)
--- NOTE | 2023-03-07 16:49 | CT ---
EXAMINATION TYPE: CT brain wo con CT DLP: 1205.6 mGycm, Automated exposure control for dose reduction was used. DATE OF EXAM: 03/07/2023 4:44 PM COMPARISON: Prior CT Brain from 12/19/2022 . CLINICAL INDICATION:Female, 52 years old with history of Neuro deficit, acute, stroke suspected, Slur red speech, LT arm weakness. Code stroke. TECHNIQUE: Brain: Multiple axial CT images of the brain were obtained without IV contrast. Coronal sagittal refo rmats reviewed. FINDINGS: Brain: Extra-axial spaces: No abnormal extra-axial fluid collections. Ventricular system: Within normal limits Cerebral parenchyma: No acute intraparenchymal hemorrhage or mass effect. The hodges-white junction is well differentiated. Stable 1 cm density in the insular temporal lobe consistent with Virchow-Jaron space. Cerebellum: Unremarkable. Mass effect: No evidence of midline shift. Intracranial vasculature: Atherosclerotic calcifications of the intracranial vessels. Soft tissues: Normal. Calvarium/osseous structures: No depressed skull fracture. Paranasal sinuses and mastoid air cells: The mastoid air cells are clear. Moderate mucosal thickening of the left maxillary sinus. Visualized orbits: Orbital contents are intact. IMPRESSION: No acute intracranial process.
[2023-03-07 16:59] LABS: INR 0.9 (<1.2); Partial Thromboplastin Time 26.4 sec (22.0-30.0); Prothrombin Time 9.4 sec (9.0-12.0)
[2023-03-07 17:06] LABS: ALT 24 U/L (4-34); AST 19 U/L (14-36); African American GFR (CKD) >90 (>60 ml/min/1.73 sqM); Albumin 3.7 g/dL (3.5-5.0); Alkaline Phosphatase 135 U/L (38-126); Anion Gap 7 mmol/L; Blood Urea Nitrogen 11 mg/dL (7-17); Calcium 8.9 mg/dL (8.4-10.2); Carbon Dioxide 25 mmol/L (22-30); Chloride 106 mmol/L (98-107); Glucose 293 mg/dL (74-99); Non-African American GFR(CKD) >90 (>60 ml/min/1.73 sqM); Potassium 4.8 mmol/L (3.5-5.1); Sodium 138 mmol/L (137-145); Total Bilirubin 0.3 mg/dL (0.2-1.3); Total Protein 6.2 g/dL (6.3-8.2)
--- NOTE | 2023-03-07 17:20 | CT ---
EXAMINATION TYPE: CT angio head neck DATE OF EXAM: 03/07/2023 HISTORY: Slurred speech, LT side weakness. Hx stroke. COMPARISON: 12/08/2022 CT DLP: 709 mGycm. Automated Exposure Control for Dose Reduction was Utilized. TECHNIQUE: CTA scan of the neck is performed with IV Contrast, patient injected with 65 mL of Isovue 370, axial images are obtained, coronal and sagittal reformatted images are reviewed. Three-D recons tructed images are created on an independent workstation and reviewed. Source images are reviewed. FINDINGS: Carotid/Vascular Structures: There is a three-vessel arch. Minimal atheromatous plaquing is present a t bilateral carotid bifurcations. No significant flow-limiting stenosis is evident. There may be some mild narrowing at the origin of left internal carotid without significant flow-limiting stenosis. Th ere is beam hardening artifact within the upper thoracic level. This may cause limitation during eval uation of these vessels. No obvious abnormality on source images is evident. Vertebral arteries appea r codominant. Cervical of [place]: Vertebral basilar system appears normal. Posterior cerebral vasculature is unrema rkable. Internal carotid arteries bifurcate normally into A1 and M1 segments. Right A1 segment may be hypoplastic. A2 segments are normal. The anterior communicating artery is patent. Left Posterior com municating artery is patent. Right posterior communicating artery is patent. IMPRESSION: 1. No flow-limiting stenosis bilateral carotid bifurcations. 2. Normal [place]. 3. Examination is stable from comparison 12/08/2022. NASCET criteria was used in interpretation of this exam?
--- NOTE | 2023-03-07 18:13 | XR ---
EXAMINATION TYPE: XR chest 2V DATE OF EXAM: 03/07/2023 COMPARISON: 02/28/2023 INDICATION: Altered mental status slurred speech TECHNIQUE: Frontal and lateral views of the chest are obtained. FINDINGS: The heart size is normal. The pulmonary vasculature is normal. The lungs are clear. IMPRESSION: 1. No acute pulmonary process.
[2023-03-07] MEDS ORDERED: ASPIRIN 81 MG PO STA (18:39)
[2023-03-07] MEDS ORDERED: MORPHINE SULFATE 4 MG/ML SYRINGE IV STA (19:01)
[2023-03-07] MEDS ORDERED: NALOXONE 0.4 MG/ML 1 ML VIAL IV PRN (19:07)
[2023-03-07] MEDS: SODIUM CHLORIDE 0.9% 1,000 ML IV SCH (19:28)
[2023-03-08] MEDS ORDERED: ACETAMINOPHEN TAB 500 MG TAB PO PRN (05:17)
[2023-03-08] MEDS ORDERED: methocarbamoL 500 MG TAB PO PRN (09:19)
[2023-03-08] MEDS ORDERED: NITROGLYCERIN SL TABS 0.4 MG TAB SUBLINGUAL PRN (09:19)
[2023-03-08] MEDS ORDERED: ALBUTEROL NEBULIZED 2.5 MG/3 ML INHALATION PRN (09:19)
[2023-03-08] MEDS ORDERED: DEXTROSE 50% SYRINGE 50 ML IVP PRN ×2 (09:23)
[2023-03-08] MEDS ORDERED: ERENUMAB AOOE 70 MG/ML SQ SCH (09:30)
[2023-03-08] MEDS ORDERED: AUTO INJCT SQ SCH (09:30)
[2023-03-08] MEDS: DILTIAZEM CD 240 MG CAP.ER.24H PO SCH (10:00)
[2023-03-08] MEDS: ATORVASTATIN 40 MG TAB PO SCH (10:00)
[2023-03-08] MEDS: APIXABAN 5 MG TAB PO SCH ×2 (10:00→21:16)
[2023-03-08] MEDS: HYDROcodone/APAP 7.5-325MG 1 EACH TAB PO PRN ×2 (10:01→16:22)
[2023-03-08] MEDS: PANTOPRAZOLE 40 MG TABLET PO SCH ×2 (10:01→17:28)
[2023-03-08] MEDS: ISOSORBIDE MONONITRATE ER 60 MG TAB.ER.24H PO SCH (10:01)
[2023-03-08] MEDS: RANOLAZINE 500 MG TAB.ER.12H PO SCH ×2 (10:01→21:16)
[2023-03-08] MEDS: MULTIVITAMINS, THERA 1 EACH TAB PO SCH (10:01)
[2023-03-08] MEDS: MAGNESIUM OXIDE 400 MG TAB PO SCH (10:01)
--- NOTE | 2023-03-08 10:53 | P.CNNES ---
History of Present Illness Consult date: 03/08/23 Requesting physician: Babar Oden Reason for Consult: Strokelike symptoms History of Present Illness: Patient is a 52-year-old right-handed female with history of hypertension, diabetes, previous history of possible CVA, with minimal residual weakness left arm, came to the hospital yesterday at 3:46 PM for acute onset of stroke symptoms. Patient states that yesterday at around 3 PM, she started feeling weird sensation like "out of body experience", like something is about to happen. While she was coming to the hospital, she started having garbled speech and left arm became weak. She states that her speech is still slightly garbled and she cannot move her left arm. She is using her right arm to lift her left arm, and snugs her cell phone with the chest. She feels numbness of the left side of the face and also tingling of the left arm. She denies any weakness of the legs. She feels that she has left facial droop. Vital signs on arrival blood pressure 142/82, pulse 85 temperature 97.9. Blood test shows normal CBC, PT/PTT, normal CMP and troponin. Blood sugar is elevated 293. EKG shows sinus rhythm, chest x-ray showed no acute process. CT head revealed no acute process. Moderate mucosal thickening of the left maxillary sinus. Patient says she has history of stroke and TIA in the past. It was in 2011, with mild residual weakness of the left arm. It has gotten much worse as of yesterday. Patient states that she had history of DVT and PE in the past for which she is on anticoagulant. She has diabetes for 20 years. No history of seizures. She does have bipolar depression for which she takes Topamax. Patient is a nonsmoker, does use marijuana vaping pen for chronic back pain. She drinks alcohol rarely. She is disabled from her psychiatric condition. Home medications includes Robaxin ranolazine 500 mg twice a day, Trulicity, omeprazole, insulin, Singulair, magnesium, Lipitor 40 mg, Abilify 10 mg, albuterol, Topamax 100 mg twice a day, Eliqui 5 mg twice a day, diltiazem, clonazepam, Elavil 25 mg at bedtime, Aimovig 70 mg monthly, isosorbide, Cymbalta 60 mg and 30 mg at bedtime. Clyde and multivitamin. Patient states that she was off Eliquis for 3 weeks for colonoscopy and also for lysis of adhesions. She resumed Eliquis 2 weeks ago and is compliant with it. Patient states that she stopped aspirin 3 months ago as per recommendation from her doctor's. Review of Systems Constitutional: Denies chills, Denies fever Eyes: bilateral blurred vision (Started yesterday), bilateral diplopia (For one or 2 weeks), denies pain, denies loss of vision, denies tunnel vision/blind spots Ears: left: earache, deny: decreased hearing, tinnitus Ears, nose, mouth and throat: Reports headache, Denies sore throat Cardiovascular: Reports shortness of breath, Denies chest pain Respiratory: Reports cough, Denies excessive sputum, Denies wheezing Gastrointestinal: Reports abdominal pain, Reports diarrhea, Reports nausea, Denies vomiting Genitourinary: Denies dysuria, Denies hematuria, Denies urge incontinence Musculoskeletal: Reports low back pain, Reports muscle weakness, Reports myalgias, Denies frequent falls Integumentary: Denies pruritus, Denies rash Neurological: Reports as per HPI Psychiatric: Reports anxiety, Reports depression Endocrine: Reports fatigue, Denies weight change Hematologic/Lymphatic: Reports easy bleeding, Denies easy bruising Past Medical History Past Medical History: Asthma, Chest Pain / Angina, CVA/TIA, Diabetes Mellitus, Deep Vein Thrombosis (DVT), Fibromyalgia, GERD/Reflux, Hyperlipidemia, Hypertension, Liver Disease, Myocardial Infarction (ID) Additional Past Medical History / Comment(s): fibomyalgia, light weakness on left after stroke coming back. mild ID from EKG unknown time. will test for Sleep apnea. has scd at home. recent blood in stools. non alcoholic fatty liver,, diverticulosis. Last Myocardial Infarction Date:: unk History of Any Multi-Drug Resistant Organisms: None Reported, C-DIFF Date of last positivie culture/infection: 2019 MDRO Source:: stool Past Surgical History: Appendectomy, Cholecystectomy, Hysterectomy, Orthopedic Surgery Additional Past Surgical History / Comment(s): left knee replaced. left rotator cuff repair . rt hip stretched bursa. colonoscopies, laproscopic surgery to remove abdominal adhesions. Past Anesthesia/Blood Transfusion Reactions: Postoperative Nausea & Vomiting (PONV) Additional Past Anesthesia/Blood Transfusion Reaction / Comment(s): with lap pr thania had a hard time waking up. Past Psychological History: Bipolar, Depression Smoking Status: Never smoker Past Alcohol Use History: None Reported Past Drug Use History: None Reported - Past Family History Mother Family Medical History: Cancer Additional Family Medical History / Comment(s): uterine Father Family Medical History: Cancer Additional Family Medical History / Comment(s): lung Medications and Allergies Home Medications Medication Instructions Recorded Confirmed Type RX: ARIPiprazole [Abilify] 10 mg PO DAILY 11/15/22 03/07/23 History RX: Albuterol Sulfate [Albuterol 2 puff INHALATION RT-Q6H PRN 11/15/22 03/07/23 History Sulfate Hfa] RX: Amitriptyline HCl [Elavil] 25 mg PO HS 11/15/22 03/07/23 History RX: Apixaban [Eliquis] 5 mg PO BID 11/15/22 03/07/23 History RX: Atorvastatin Calcium [Lipitor] 40 mg PO DAILY 11/15/22 03/07/23 History RX: Dulaglutide [Trulicity] 3 mg SQ TH 11/15/22 03/07/23 History RX: Erenumab-Aooe [Aimovig 70 mg SQ QMONTHLY 11/15/22 03/07/23 History Autoinjector] RX: Insulin Aspart [NovoLOG 17 units SQ AC-TID 11/15/22 03/07/23 History Flexpen] RX: Insulin Aspart [NovoLOG See Protocol SQ AC-TID 11/15/22 03/07/23 History Flexpen] RX: Magnesium Oxide 400 mg PO DAILY 11/15/22 03/07/23 History RX: Montelukast Sodium [Singulair] 10 mg PO HS 11/15/22 03/07/23 History RX: Nitroglycerin Sl Tabs 0.4 mg SUBLINGUAL Q5M PRN 11/15/22 03/07/23 History [Nitrostat] RX: Omeprazole 40 mg PO BID 11/15/22 03/07/23 History RX: Ranolazine [Ranolazine ER] 500 mg PO BID 11/15/22 03/07/23 History RX: Topiramate [Topamax] 100 mg PO BID 11/15/22 03/07/23 History RX: clonazePAM [KlonoPIN] 1 mg PO BID 11/15/22 03/07/23 History RX: dilTIAZem HCL [dilTIAZem 240 mg PO DAILY 11/15/22 03/07/23 History [id number] ER (CD)] RX: methocarbamoL [Robaxin] 500 mg PO TID PRN 11/15/22 03/07/23 History RX: Isosorbide Mononitrate ER 60 mg PO DAILY 12/08/22 03/07/23 History [Imdur] RX: DULoxetine HCL [Cymbalta] 30 mg PO HS 02/03/23 03/07/23 History RX: DULoxetine HCL [Cymbalta] 60 mg PO HS 02/03/23 03/07/23 History HYDROcodone/APAP 7.5-325MG [Clyde 1 tab PO Q6HR PRN 3 Days #10 tab 02/09/23 03/07/23 Rx 7.5-325] RX: Insulin Detemir [Levemir 20 units SQ HS 02/21/23 03/07/23 History Flextouch Pen] Multivitamins, Thera [Multivitamin 1 tab PO DAILY 02/28/23 03/07/23 History (formulary)] Dicyclomine [Bentyl] 10 mg PO TID 03/07/23 03/07/23 History Allergies Allergy/AdvReac Type Severity Reaction Status Date / Time adhesive Allergy red skin Verified 03/07/23 16:53 trimethobenzamide Allergy Rash/Hives Verified 03/07/23 16:53 [From [facility]] vancomycin Allergy Rash/Hives Verified 03/07/23 16:53 Physical Examination - Vital Signs Vital Signs: Vital Signs Temp Pulse Resp BP Pulse Ox 03/08/23 07:21 97.8 F 78 16 144/78 98 03/08/23 05:00 98.4 F 70 18 126/57 97 03/08/23 00:00 71 15 128/80 95 03/07/23 21:00 71 18 120/59 96 03/07/23 20:00 71 18 111/56 95 03/07/23 19:00 74 18 129/70 97 03/07/23 18:58 75 16 129/68 99 03/07/23 18:30 98.1 F 73 18 126/73 97 03/07/23 18:15 98.1 F 73 18 133/65 96 03/07/23 18:00 98.0 F 73 18 129/74 97 03/07/23 17:45 98.0 F 76 18 131/69 97 03/07/23 17:30 98.0 F 82 18 136/67 96 03/07/23 17:15 97.9 F 79 18 123/67 97 03/07/23 17:00 98.0 F 80 18 127/71 94 L 03/07/23 16:55 80 16 132/76 97 03/07/23 16:20 97.9 F 85 18 142/82 97 Intake and Output 03/07/23 03/08/23 03/08/23 22:59 06:59 14:59 Other: Weight 108.862 kg Patient is a middle aged female, in no acute distress. Patient is alert awake oriented to time place and person. Speech and language functions are normal. Patient can name and repeat very well. No aphasia. She talks with some slurring, which is more noticeable, when patient is asked about her speech. Sometimes when talking about other subjects, she was speaking almost normally. Attention, concentration and fund of knowledge is adequate. On cranial nerve examination, pupils are equal, round and reacting to light, visual alexander are full on confrontation, with no neglect on double simultaneous stimulation. Extraocular muscles are intact with no nystagmus. Patient has very mild left facial droop of the corner of mouth. Her tongue protrudes slightly to the left. Palatal elevation and sensation normal, hearing and shoulder shrug normal, facial sensation decreased on the left. On muscle strength testing, patient is flaccid in the left arm. Strength is normal in right arm and both legs. In the left upper limb, deltoid 0, triceps trace, biceps 0, trigonometry teacher 2+. Deep tendon reflexes are (right/left) biceps trace/trace, brachioradialis trace/trace, knee 2/0, ankles 1/1 and plantars are flat bilaterally. Patient is a fake left knee. Sensory to touch is decreased in the left arm and the left side of the face, but equal in the legs. Cerebellar function showed no ataxia for [id number] testing on the right, cannot perform on the left. No ataxia for [id number] testing on either side. Tone and bulk of muscles normal. Tone is decreased only in the left arm. Gait deferred.. On general examination, there is no carotid bruit or murmur, S1-S2 audible. Chest is clear on consultation. Abdomen is soft nontender. No organomegaly, bowel sounds present. Peripheral pulses are present. No edema. Results - Laboratory Findings CBC and BMP: 03/07/23 16:37 03/07/23 16:37 Abnormal Lab Findings: Abnormal Labs 03/07/23 16:37 Glucose 293 H Alkaline Phosphatase 135 H Total Protein 6.2 L Assessment and Plan Assessment: * Acute onset of left arm weakness, left facial droop and some slurring speech. Rule out CVA. Patient's speech seems to get worse when discussed about speech. * Hypertension * Diabetes * Hyperlipidemia * Previous history of possible CVA. * History of DVT and PE, on long-term Eliquis. * History of diverticulosis and recent GI bleed. Plan: * MRI of the brain to evaluate for acute stroke * 2-D echo with bubble study to rule out PFO. Rule out any embolic source. * CTA of head and neck revealed no flow-limiting stenosis bilateral carotid bifurcations. Normal north fork of Melendez. * Hemoglobin A1c 8.6. Recommend optimize control of diabetes to target A1c < 7.0. * Lipid panel with cholesterol 157, LDL 86, HDL 50 and triglycerides 104. Continue Lipitor 40 mg daily. * Continue Eliquis 5 mg twice a day. * Telemetric monitoring, rule out arrhythmia. * Neurology will follow. Thank you for the consult.
[2023-03-08] MEDS: ARIPiprazole 10 MG TAB PO SCH (11:12)
[2023-03-08] MEDS ORDERED: LORazepam 2 MG/ML INJ IV STA (11:32)
[2023-03-08 11:45] LABS: Glucose,Whole Blood 305 mg/dL (70-110)
[2023-03-08] MEDS: INSULIN ASPART (NovoLOG) 100 UNIT/ML VIAL SQ SCH ×5 (11:57→21:21)
[2023-03-08] MEDS ORDERED: INSULIN ASPART (NovoLOG) 100 UNIT/ML VIAL SQ SCH (12:30)
--- NOTE | 2023-03-08 13:28 | MR ---
EXAMINATION TYPE: MR brain wo con DATE OF EXAM: 03/08/2023 COMPARISON: CT brain 03/07/2023 HISTORY: Slurred speech, left sided weakness. CONTRAST: Performed utilizing 0 mL intravenous Gadavist gadolinium contrast. TECHNIQUE: Multiplanar, multiecho imaging on a 3.0 Keila magnet is performed through the brain. Stud y is performed within 24 hours of arrival to the hospital. The craniovertebral junction is normal. The pituitary is normal. Diffusion-weighted imaging is performed. No abnormal hyperintensity is present to suggest an acute i ntracranial infarct or acute ischemic change. There is an old lacunar infarct or Virchow Jaron space within the left posterior basal ganglia. Ventricles and sulci are appropriate for the patient age. IMPRESSIONS: 1. No acute intracranial process. 2. Old lacunar infarct or Virchow Jaron space left basal ganglia
--- NOTE | 2023-03-08 15:30 | P.HPIM ---
History of Present Illness H&P Date: 03/08/23 This is a pleasant 52-year-old female who presented to the emergency department via EMS as patient started reporting strokelike symptoms that started around 3:30 PM. Patient reports she had increased left-sided weakness of the left upper extremity with some tingling but unable to lift or move the extremity. Patient does have a significant past medical history of CVA/TIA in 2011 along with a DVT on the right lower extremity and a PE and is maintained on oral anticoagulation. Patient also was recently hospitalized with surgery Dr. Eckert and underwent colonoscopy with lysis of adhesions. Patient follows with Dr. Valdovinos and Dr. Santiago in the clinic with a past medical history of asthma, chest pain with angina, CVA/TIA, diabetes mellitus, DVT, fibromyalgia, GERD, hyperlipidemia, hypertension, myocardial infarction, bipolar with depression. Patient also reports she noted her speech being slurred and patient does have deficits from her previous stroke. Patient is also reporting some blurred vision and neurology has evaluated the patient this morning recommending MRI along with echo with bubble study which is currently pending. Brain CT shows no acute intracranial process, EKG shows sinus rhythm, angios CT shows no flow-limiting stenosis bilateral carotid bifurcations a normal morongo of Melendez and stable from comparison on 12/08/2022. Chest x-ray shows no acute pulmonary process and patient was admitted under observation for neurological evaluation for possible stroke versus TIA. Labs reviewed and within normal limits other than elevated blood sugars and will review and resume home medications. Review Of Systems: Constitutional: No fever, no chills, no night sweats. No weight change. Reports increased left-sided weakness, no fatigue or lethargy. No daytime s leepiness. EENT: No headache. No blurred vision or double vision, no loss of vision. No loss of Hearing, no ringing in the ears, no dizziness. No nasal drainage or congestion. No epistaxis. No sore throat. Lungs: No shortness of breath, cough, no sputum production. No wheezing. Cardiovascular: No chest pain, no lower extremity edema. No palpitations. No paroxysmal nocturnal dyspnea. No orthopnea. No lightheadedness or dizziness. No syncopal episodes. Abdominal: No abdominal pain. No nausea, vomiting. No diarrhea. No constipation. No bloody or tarry stools.. No loss of appetite. Genitourinary: No dysuria, increased frequency, urgency. No urinary retention. Musculoskeletal: No myalgias. No muscle weakness, no gait dysfunction, no frequent falls. No back pain. No neck pain. Reports left-sided weakness Integumentary: No wounds, no lesions. No rash or pruritus. No unusual bruising. No change in hair or nails. Neurologic: Reported some slurring of speech, No aphasia. No facial droop. No change in mentation. No head injury. No headache. No paralysis. No paresthesia. Psychiatric: No depression. No anxiety. No mood swings. Endocrine: No abnormal blood sugars. No weight change. No excessive sweating or thirst. No cold intolerance. PHYSICAL EXAMINATION: GENERAL: The patient is alert and oriented x4, Well developed, well nourished. Obese HEENT: Pupils are round and equally reacting to light. EOMI. no scleral icterus. No conjunctival pallor. Normocephalic, atraumatic. No pharyngeal erythema. No thyromegaly. CARDIOVASCULAR: S1 and S2 muffled PULMONARY: diminished breath sounds bilaterally with no wheezing or rhonchi noted. ABDOMEN: soft. Nontender on exam. obese. non-distended, normoactive bowel sounds. No palpable organomegaly. MUSCULOSKELETAL: No joint swelling or deformity. EXTREMITIES: No cyanosis, clubbing, or pedal edema. NEUROLOGICAL: Gross neurological examination did not reveal any focal deficits. Left side upper extremity flaccid and unable to cs associate 0/5 on the strength and right side upper extremity is 5/5, lower extremities are 5/5 on strength SKIN: No rashes. Assessment: Left-sided weakness with upper extremity paralysis, rule out CVA versus TIA History of asthma, not in exacerbation History of CVA/TIA in 2012 Diabetes mellitus, uncontrolled with hyperglycemia, insulin-dependent DVT/PE history Fibromyalgia GERD Hyperlipidemia Sign hypertension History of myocardial infarction History of bipolar/depression History of vaping with THC use GI prophylaxis DVT prophylaxis Full code Plan: Recommend to continue with current medications and management and neurology consulted. Patient underwent CT of the brain showing no acute process and neurology recommending a 2-D echo with bubble study in addition to a brain MRI. Patient continues to have left-sided weakness increased from previous stroke although does have chronic deficits noted of her speech as well as left upper extremity Recommend Accu-Cheks before meals and at bedtime and close monitoring of blood sugars for tight glycemic control Will have PT/OT therapy evaluate the patient, which is also currently pending 2-D echo continues to be pending MRI of the brain was done which showed no acute intracranial process with old lacunar infarct or virchow Jaron space left basal ganglia Possible discharge in the next 24-48 hours. The impression and plan of care has been dictated by Amber Medellin, nurse practitioner as directed. Dr. Maureen MD I have performed a history and examination and MDM of this patient, discussed the same with the dictator, and agree with the dictator's assessment and plan as written ,documented as a scribe. Based on total visit time, I have performed more than 50% of the visit. Any additional findings or plans will be noted. Past Medical History Past Medical History: Asthma, Chest Pain / Angina, CVA/TIA, Diabetes Mellitus, Deep Vein Thrombosis (DVT), Fibromyalgia, GERD/Reflux, Hyperlipidemia, Hypertension, Liver Disease, Myocardial Infarction (IA) Additional Past Medical History / Comment(s): fibomyalgia, light weakness on left after stroke coming back. mild IA from EKG unknown time. will test for Sleep apnea. has scd at home. recent blood in stools. non alcoholic fatty liver,, diverticulosis. Last Myocardial Infarction Date:: unk History of Any Multi-Drug Resistant Organisms: None Reported, C-DIFF Date of last positivie culture/infection: 2019 MDRO Source:: stool Past Surgical History: Appendectomy, Cholecystectomy, Hysterectomy, Orthopedic Surgery Additional Past Surgical History / Comment(s): left knee replaced. left rotator cuff repair . rt hip stretched bursa. colonoscopies, laproscopic surgery to remove abdominal adhesions. Past Anesthesia/Blood Transfusion Reactions: Postoperative Nausea & Vomiting (PONV) Additional Past Anesthesia/Blood Transfusion Reaction / Comment(s): with lap procedure had a hard time waking up. Past Psychological History: Bipolar, Depression Smoking Status: Never smoker Past Alcohol Use History: None Reported Past Drug Use History: None Reported - Past Family History Mother Family Medical History: Cancer Additional Family Medical History / Comment(s): uterine Father Family Medical History: Cancer Additional Family Medical History / Comment(s): lung Medications and Allergies Home Medications Medication Instructions Recorded Confirmed Type ARIPiprazole [Abilify] 10 mg PO DAILY 11/15/22 03/07/23 History Albuterol Sulfate [Albuterol 2 puff INHALATION RT-Q6H PRN 11/15/22 03/07/23 History Sulfate Hfa] Amitriptyline HCl [Elavil] 25 mg PO HS 11/15/22 03/07/23 History Apixaban [Eliquis] 5 mg PO BID 11/15/22 03/07/23 History Atorvastatin Calcium [Lipitor] 40 mg PO DAILY 11/15/22 03/07/23 History Dulaglutide [Trulicity] 3 mg SQ TH 11/15/22 03/07/23 History Erenumab-Aooe [Aimovig 70 mg SQ QMONTHLY 11/15/22 03/07/23 History Autoinjector] Insulin Aspart [NovoLOG Flexpen] 17 units SQ AC-TID 11/15/22 03/07/23 History Insulin Aspart [NovoLOG Flexpen] See Protocol SQ AC-TID 11/15/22 03/07/23 History Magnesium Oxide 400 mg PO DAILY 11/15/22 03/07/23 History Montelukast Sodium [Singulair] 10 mg PO HS 11/15/22 03/07/23 History Nitroglycerin Sl Tabs [Nitrostat] 0.4 mg SUBLINGUAL Q5M PRN 11/15/22 03/07/23 History Omeprazole 40 mg PO BID 11/15/22 03/07/23 History Ranolazine [Ranolazine ER] 500 mg PO BID 11/15/22 03/07/23 History Topiramate [Topamax] 100 mg PO BID 11/15/22 03/07/23 History clonazePAM [KlonoPIN] 1 mg PO BID 11/15/22 03/07/23 History dilTIAZem HCL [dilTIAZem [id number] 240 mg PO DAILY 11/15/22 03/07/23 History ER (CD)] methocarbamoL [Robaxin] 500 mg PO TID PRN 11/15/22 03/07/23 History Isosorbide Mononitrate ER [Imdur] 60 mg PO DAILY 12/08/22 03/07/23 History DULoxetine HCL [Cymbalta] 30 mg PO HS 02/03/23 03/07/23 History DULoxetine HCL [Cymbalta] 60 mg PO HS 02/03/23 03/07/23 History HYDROcodone/APAP 7.5-325MG [Christine 1 tab PO Q6HR PRN 3 Days #10 tab 02/09/23 03/07/23 Rx 7.5-325] Insulin Detemir [Levemir Flextouch 20 units SQ HS 02/21/23 03/07/23 History Pen] Multivitamins, Thera [Multivitamin 1 tab PO DAILY 02/28/23 03/07/23 History (formulary)] Dicyclomine [Bentyl] 10 mg PO TID 03/07/23 03/07/23 History Allergies Allergy/AdvReac Type Severity Reaction Status Date / Time adhesive Allergy red skin Verified 03/07/23 16:53 trimethobenzamide Allergy Rash/Hives Verified 03/07/23 16:53 [From [facility]] vancomycin Allergy Rash/Hives Verified 03/07/23 16:53 Physical Exam Vitals: Vital Signs Temp Pulse Resp BP Pulse Ox 03/08/23 07:21 97.8 F 78 16 144/78 98 03/08/23 05:00 98.4 F 70 18 126/57 97 03/08/23 00:00 71 15 128/80 95 03/07/23 21:00 71 18 120/59 96 03/07/23 20:00 71 18 111/56 95 03/07/23 19:00 74 18 129/70 97 03/07/23 18:58 75 16 129/68 99 03/07/23 18:30 98.1 F 73 18 126/73 97 03/07/23 18:15 98.1 F 73 18 133/65 96 03/07/23 18:00 98.0 F 73 18 129/74 97 03/07/23 17:45 98.0 F 76 18 131/69 97 03/07/23 17:30 98.0 F 82 18 136/67 96 03/07/23 17:15 97.9 F 79 18 123/67 97 03/07/23 17:00 98.0 F 80 18 127/71 94 L 03/07/23 16:55 80 16 132/76 97 03/07/23 16:20 97.9 F 85 18 142/82 97 Intake and Output 03/07/23 03/08/23 03/08/23 22:59 06:59 14:59 Other: Weight 108.862 kg Results CBC & Chem 7: 03/07/23 16:37 03/07/23 16:37 Labs: Abnormal Lab Results - Last 24 Hours (Table) 03/07/23 Range/Units 16:37 Glucose 293 H (74-99) mg/dL Alkaline Phosphatase 135 H (38-126) U/L Total Protein 6.2 L (6.3-8.2) g/dL Thrombosis Risk Factor Assmnt - DVT/VTE Prophylaxis DVT/VTE Prophylaxis: Pharmacologic Prophylaxis ordered Assessment and Plan Time with Patient: Greater than 30
[2023-03-08] MEDS: DICYCLOMINE 10 MG CAP PO SCH ×2 (16:23→21:17)
[2023-03-08 17:16] LABS: Glucose,Whole Blood 211 mg/dL (70-110)
[2023-03-08] MEDS: SODIUM CHLORIDE 0.9% 1,000 ML IV SCH (17:27)
[2023-03-08 19:54] LABS: Glucose,Whole Blood 138 mg/dL (70-110)
[2023-03-08] MEDS ORDERED: MONTELUKAST 10 MG TAB PO SCH (21:00)
[2023-03-08] MEDS ORDERED: INSULIN DETEMIR (LEVEMIR) 100 UNIT/ML SYR SQ SCH (21:00)
[2023-03-08] MEDS ORDERED: AMITRIPTYLINE HCL 25 MG TAB PO SCH (21:00)
[2023-03-08] MEDS ORDERED: DULoxetine HCL 60 MG CAPSULE.DR PO SCH (21:00)
[2023-03-08] MEDS ORDERED: DULoxetine HCL 30 MG CAPSULE.DR PO SCH (21:00)
[2023-03-08] MEDS: TOPIRAMATE 100 MG TAB PO SCH (21:17)
[2023-03-08] MEDS: KETOROLAC 15 MG/ML 1 ML VIAL IVP PRN (21:17)
[2023-03-09 06:01] LABS: Glucose,Whole Blood 197 mg/dL (70-110)
[2023-03-09] MEDS: INSULIN ASPART (NovoLOG) 100 UNIT/ML VIAL SQ SCH ×4 (07:10→12:34)
[2023-03-09] MEDS: PANTOPRAZOLE 40 MG TABLET PO SCH (07:10)
[2023-03-09] MEDS: DICYCLOMINE 10 MG CAP PO SCH (07:38)
[2023-03-09] MEDS: DILTIAZEM CD 240 MG CAP.ER.24H PO SCH (07:49)
[2023-03-09] MEDS: TOPIRAMATE 100 MG TAB PO SCH (07:50)
[2023-03-09] MEDS: ATORVASTATIN 40 MG TAB PO SCH (07:50)
[2023-03-09] MEDS: ARIPiprazole 10 MG TAB PO SCH (07:50)
[2023-03-09] MEDS: RANOLAZINE 500 MG TAB.ER.12H PO SCH (07:50)
[2023-03-09] MEDS: ISOSORBIDE MONONITRATE ER 60 MG TAB.ER.24H PO SCH (07:50)
[2023-03-09] MEDS: APIXABAN 5 MG TAB PO SCH (07:50)
[2023-03-09] MEDS: MAGNESIUM OXIDE 400 MG TAB PO SCH (07:50)
[2023-03-09] MEDS: MULTIVITAMINS, THERA 1 EACH TAB PO SCH (07:50)
[2023-03-09] MEDS: KETOROLAC 15 MG/ML 1 ML VIAL IVP PRN (11:17)
[2023-03-09 11:48] LABS: Glucose,Whole Blood 151 mg/dL (70-110)
[2023-03-09 13:32] VITALS: BP 150/76; PULSE 93; RESP 16; TEMP 98
--- NOTE | 2023-03-09 18:03 | CA ---
Transthoracic Echo Report Name: Aurora Tsai Age: 52 Gender: F : 1970 Exam Date: 03/09/2023 10:16 Exam Location: [place] [facility] Ht (in): 66 Wt (lb): 240 Ordering Physician: Arcelia Estrada MD Attending/Referring Phys: Jukebox Coin Collector Gracie Carmona RDCS Procedure CPT: Indications: CVA Cardiac Hx: Technical Quality: Fair Contrast 1: Agitated Saline Total Dose (mL): 9 Contrast 2: Total Dose (mL): MEASUREMENTS (Male / Female) Normal Values 2D ECHO LA Area 4C View 15.6 cm??? <= 20 cm??? M-MODE Aortic Root Diameter MM 2.9 cm AV Cusp Separation MM 1.8 cm DOPPLER AV Peak Velocity 126.1 cm/s AV Peak Gradient 6.4 mmHg LVOT Peak Velocity 93.4 cm/s LVOT Peak Gradient 3.5 mmHg MV Area PHT 7.7 cm??? Mitral E Point Velocity 49.1 cm/s Mitral A Point Velocity 72.2 cm/s Mitral E to A Ratio 0.7 MV Deceleration Time 98.5 ms Right Atrial Pressure 3.0 mmHg PV Peak Velocity 96.4 cm/s PV Peak Gradient 3.7 mmHg FINDINGS Left Ventricle Mild septal thickness.grade 1 diastolic dysfunction. Left ventricular ejection fraction is estimated at 55-60 %. Right Ventricle Normal right ventricular size. Right Atrium Normal right atrial size. Left Atrium Normal left atrial size. Mitral Valve Structurally normal mitral valve. No mitral regurgitation. No mitral stenosis. Aortic Valve Trileaflet aortic valve. No aortic regurgitation. No aortic stenosis. Tricuspid Valve Structurally normal tricuspid valve. No tricuspid regurgitation. Pulmonic Valve Structurally normal pulmonic valve. No pulmonic regurgitation. No pulmonic stenosis. Pericardium No pericardial or pleural effusion. Aorta Proximal ascending aorta not well visualized. Aorta at the level of the sinuses of valsalva (root) normal. CONCLUSIONS Normal LV systolic function Previewed by: Dr. Nick Oglesby MD (Electronically Signed) Final Date: 09 March 2023 18:03
[2023-03-10] MEDS ORDERED: NON FORMULARY DRUG (Dulaglutide [Trulicity] 3 MG/0.5 ML Each) SQ SCH (09:00)
--- NOTE | 2023-03-10 09:12 | P.PN ---
Subjective Progress Note Date: 03/09/23 Patient was seen for a follow-up. Patient is sitting comfortably in the recliner, eating her dinner with her right hand. Patient states that she cannot move her left arm at all, which is placed comfortably on the armrest of the recliner. Later she said that she can move the hand and little and she supi nated it very normally. Denies any weakness in the legs or facial problem. Patient states her speech is completely back to normal. Patient states that she is under a lot of stress because of the divorce, that happened a year ago, but still is quite stressed from it. Her boyfriend was present at this time in the room. Objective - Vital Signs Vital signs: Vital Signs Temp 97.8 F 03/09/23 08:00 Pulse 82 03/09/23 08:00 Resp 18 03/09/23 08:00 BP 135/85 03/09/23 08:00 Pulse Ox 98 03/09/23 08:00 FiO2 Intake & Output 03/08/23 03/09/23 03/09/23 18:59 06:59 18:59 Intake Total 10 240 Output Total 0 Balance 0 10 240 Weight 108.862 kg Intake: IV 10 0.9 10 Oral 240 Output: Urine 0 Other: Voiding Method Toilet # Voids 1 1 - Exam Patient's mental status, speech and language functions are normal. Muscle strength is normal in the right arm and both legs. Regarding the left arm, she said that she could not move it, but then she supinated her left hand normally. Appears functional pattern. - Labs CBC & Chem 7: 03/07/23 16:37 03/07/23 16:37 Labs: Abnormal Lab Results - Last 24 Hours (Table) 03/08/23 03/08/23 03/09/23 Range/Units 17:14 19:53 05:59 POC Glucose (mg/dL) 211 H 138 H 197 H (70-110) mg/dL 03/09/23 Range/Units 11:44 POC Glucose (mg/dL) 151 H (70-110) mg/dL Assessment and Plan Assessment: * Acute onset of left arm weakness, left facial droop and some slurring speech. No evidence of acute CVA on MRI. Probable conversion disorder. Patient under a lot of stress from her recent divorce a year ago. * Hypertension * Diabetes * Hyperlipidemia * Previous history of possible CVA. * History of DVT and PE, on long-term Eliquis. * History of diverticulosis and recent GI bleed. Plan: * MRI of the brain revealed no acute intracranial process. Old lacunar infarct or prominent visual robins space left basal ganglia. I personally reviewed MRI, I agree with the findings. No acute ischemic process. * 2-D echo revealed normal left ventricular systolic function with EF 55-60%. Mild septal thickness, grade 1 diastolic dysfunction. Left atrial size is normal. * CTA of head and neck revealed no flow-limiting stenosis bilateral carotid bifurcations. Normal red cliff of [place]. * Hemoglobin A1c 8.6. Recommend optimize control of diabetes to target A1c < 7.0. * Lipid panel with cholesterol 157, LDL 86, HDL 50 and triglycerides 104. Continue Lipitor 40 mg daily. * Continue Eliquis 5 mg twice a day. * Patient has been seen by PT, OT. Her gait is normal. Her left arm is already getting better. Discussed with patient and her friend, and informed about the MRI results. Informed her that the left arm will return back to normal in the next day or 2. Recommended patient to follow up with neurologist, for any persistent deficits. * Neurologically clear for discharge.
--- NOTE | 2023-03-12 06:37 | P.DS ---
Providers Date of admission: 03/07/23 19:07 Expected date of discharge: 03/09/23 Attending physician: Velvet Henderson Consults: 03/07/23 19:02 Consult Physician Routine Consulting Provider: Arcelia Estrada Consult Reason/Comments: stroke like symptoms Do you want consulting provider notified?: Yes Primary care physician: Brayden Valdovinos [facility] Course: Final diagnosis Left-sided weakness with upper extremity paralysis, ruled out CVA/TIA, probable conversion disorder per neurology Ringworm on the right cheek History of asthma, not in exacerbation History of CVA/TIA in 2011 Diabetes mellitus, uncontrolled with hyperglycemia, insulin-dependent DVT/PE history Fibromyalgia GERD Hyperlipidemia hypertension History of myocardial infarction History of bipolar/depression History of vaping with THC use GI prophylaxis DVT prophylaxis Full code Discharge disposition Patient is being discharged in a stable condition with guarded prognosis to home. Patient will follow-up with Dr. Valdovinos in the outpatient setting upon discharge. Patient is to continue with antifungal cream on the right cheek. Total time taken is greater than 35 minutes. Hospital course This is a 52-year-old female who was recently admitted with left-sided weakness more significant than previous she does have history of CVA being closely monitored underwent neurological workup. MRI of the brain was negative for CVA. Patient has been under a lot of stress since her divorce a year ago and urology suggesting probable conversion disorder. Patient to follow-up with her neurologist outpatient as well as primary care provider. Patient did notice a round patchy ring on her right cheek that appears to be most likely ringworm and will give clotrimazole twice daily instructed to follow-up with primary care provider this week. Encouraged meticulous handwashing and washing her classes frequently as it is currently rubbing on the area of concern. Patient verbalized understanding. Patient reports she would like to go home. Currently no reports of chest pain, shortness of breath, or palpitations. Patient is afebrile. No reports of nausea or vomiting and patient is tolerating diet. Patient will be discharged home today. Physical exam: Gen: This is a 52-year-old female who is awake, alert and oriented 3, well- developed, well-nourished, obese HEENT: Head is atraumatic, normocephalic. Pupils equal, round. Sclerae is anicteric. NECK: Supple. No JVD. No lymphadenopathy. No thyromegaly. LUNGS: Clear to auscultation. No wheezes or rhonchi. No intercostal retractions. HEART: Regular rate and rhythm. No murmur. ABDOMEN: Soft. Bowel sounds are present. No masses. No tenderness. EXTREMITIES: No pedal edema. No calf tenderness. Left upper extremity weakness strength is 1/5 with residual left-sided weakness from previous CVA NEUROLOGICAL: Patient is awake, alert and oriented x3. Cranial nerves 2 through 12 are grossly intact. Please refer to medication reconciliation sheet for a list of medications. The impression and plan of care has been dictated by Amber Medellin, Nurse Practitioner as directed. Dr. Maureen MD I have performed a history and examination and MDM of this patient, discussed the same with the dictator, and agree with the dictator's assessment and plan as written ,documented as a scribe. Based on total visit time, I have performed more than 50% of the visit. Patient Condition at Discharge: Fair Plan - Discharge Summary Discharge Rx Participant: No New Discharge Prescriptions: New Clotrimazole [Clotrimazole 1% Top Soln] 1 applic TOPICAL BID 10 Days #60 ml Continue methocarbamoL [Robaxin] 500 mg PO TID PRN PRN Reason: Pain Ranolazine [Ranolazine ER] 500 mg PO BID Dulaglutide [Trulicity] 3 mg SQ TH Omeprazole 40 mg PO BID Nitroglycerin Sl Tabs [Nitrostat] 0.4 mg SUBLINGUAL Q5M PRN PRN Reason: Chest Pain Insulin Aspart [NovoLOG Flexpen] 17 units SQ AC-TID Montelukast Sodium [Singulair] 10 mg PO HS Magnesium Oxide 400 mg PO DAILY Atorvastatin Calcium [Lipitor] 40 mg PO DAILY ARIPiprazole [Abilify] 10 mg PO DAILY Albuterol Sulfate [Albuterol Sulfate Hfa] 2 puff INHALATION RT-Q6H PRN PRN Reason: Shortness Of Breath Isosorbide Mononitrate ER [Imdur] 60 mg PO DAILY DULoxetine HCL [Cymbalta] 30 mg PO HS Insulin Detemir [Levemir Flextouch Pen] 20 units SQ HS Dicyclomine [Bentyl] 10 mg PO TID Topiramate [Topamax] 100 mg PO BID Insulin Aspart [NovoLOG Flexpen] See Protocol SQ AC-TID Apixaban [Eliquis] 5 mg PO BID dilTIAZem HCL [dilTIAZem [id number] ER (CD)] 240 mg PO DAILY clonazePAM [KlonoPIN] 1 mg PO BID Amitriptyline HCl [Elavil] 25 mg PO HS Erenumab-Aooe [Aimovig Autoinjector] 70 mg SQ QMONTHLY DULoxetine HCL [Cymbalta] 60 mg PO HS HYDROcodone/APAP 7.5-325MG [[place] 7.5-325] 1 tab PO Q6HR PRN 3 Days #10 tab PRN Reason: Pain Multivitamins, Thera [Multivitamin (formulary)] 1 tab PO DAILY Discharge Medication List ARIPiprazole [Abilify] 10 mg PO DAILY 11/15/22 [History] Albuterol Sulfate [Albuterol Sulfate Hfa] 2 puff INHALATION RT-Q6H PRN 11/15/22 [History] Amitriptyline HCl [Elavil] 25 mg PO HS 11/15/22 [History] Apixaban [Eliquis] 5 mg PO BID 11/15/22 [History] Atorvastatin Calcium [Lipitor] 40 mg PO DAILY 11/15/22 [History] Dulaglutide [Trulicity] 3 mg SQ TH 11/15/22 [History] Erenumab-Aooe [Aimovig Autoinjector] 70 mg SQ QMONTHLY 11/15/22 [History] Insulin Aspart [NovoLOG Flexpen] 17 units SQ AC-TID 11/15/22 [History] Insulin Aspart [NovoLOG Flexpen] See Protocol SQ AC-TID 11/15/22 [History] Magnesium Oxide 400 mg PO DAILY 11/15/22 [History] Montelukast Sodium [Singulair] 10 mg PO HS 11/15/22 [History] Nitroglycerin Sl Tabs [Nitrostat] 0.4 mg SUBLINGUAL Q5M PRN 11/15/22 [History] Omeprazole 40 mg PO BID 11/15/22 [History] Ranolazine [Ranolazine ER] 500 mg PO BID 11/15/22 [History] Topiramate [Topamax] 100 mg PO BID 11/15/22 [History] clonazePAM [KlonoPIN] 1 mg PO BID 11/15/22 [History] dilTIAZem HCL [dilTIAZem [id number] ER (CD)] 240 mg PO DAILY 11/15/22 [History] methocarbamoL [Robaxin] 500 mg PO TID PRN 11/15/22 [History] Isosorbide Mononitrate ER [Imdur] 60 mg PO DAILY 12/08/22 [History] DULoxetine HCL [Cymbalta] 30 mg PO HS 02/03/23 [History] DULoxetine HCL [Cymbalta] 60 mg PO HS 02/03/23 [History] HYDROcodone/APAP 7.5-325MG [[place] 7.5-325] 1 tab PO Q6HR PRN 3 Days #10 tab 02/09/23 [Rx] Insulin Detemir [Levemir Flextouch Pen] 20 units SQ HS 02/21/23 [History] Multivitamins, Thera [Multivitamin (formulary)] 1 tab PO DAILY 02/28/23 [History] Dicyclomine [Bentyl] 10 mg PO TID 03/07/23 [History] Clotrimazole [Clotrimazole 1% Top Soln] 1 applic TOPICAL BID 10 Days #60 ml 03/09/23 [Rx] Follow up Appointment(s)/Referral(s): Brayden Valdovinos DO [Primary Care Provider] - 1-2 days (pt. wants to make own sharmila) Patient Instructions/Handouts: Ischemic Stroke (DC) Activity/Diet/Wound Care/Special Instructions: Activity Limited until follow-up Follow-up with primary care provider on discharge Follow-up with neurology outpatient Continue taking medications as prescribed Continue with the cream on the right cheek twice daily Frequent handwashing before and after touching the right cheek area and recommend frequently cleaning and wiping down your glasses Discharge Disposition: HOME SELF-CARE
== END 2023-03-09 15:31 | disposition home or self-care (01) ==
LOC: EC 15:46 → 3SCARD 19:07 → UNDODISOB 03-08 16:46
PROVIDERS: ADMIT Hospitalist; ATTEND Hospitalist
DX: R53.1 Weakness (principal); E11.65 Type 2 diabetes mellitus with hyperglycemia; B35.4 Tinea corporis; R20.2 Paresthesia of skin; I69.354 Hemiplegia and hemiparesis following cerebral infarction affecting left non-dominant side; R47.81 Slurred speech; H53.8 Other visual disturbances; R20.0 Anesthesia of skin; R29.810 Facial weakness; I10 Essential (primary) hypertension; K21.9 Gastro-esophageal reflux disease without esophagitis; E78.5 Hyperlipidemia, unspecified; M79.7 Fibromyalgia; I25.2 Old myocardial infarction; K57.90 Diverticulosis of intestine, part unspecified, without perforation or abscess without bleeding; K76.0 Fatty (change of) liver, not elsewhere classified; J45.909 Unspecified asthma, uncomplicated; F31.30 Bipolar disorder, current episode depressed, mild or moderate severity, unspecified; G89.29 Other chronic pain; M54.9 Dorsalgia, unspecified; Z79.01 Long term (current) use of anticoagulants; Z79.4 Long term (current) use of insulin; Z79.899 Other long term (current) drug therapy; Z88.1 Allergy status to other antibiotic agents; Z88.8 Allergy status to other drugs, medicaments and biological substances; Z91.048 Other nonmedicinal substance allergy status; Z86.718 Personal history of other venous thrombosis and embolism; Z90.49 Acquired absence of other specified parts of digestive tract; Z90.710 Acquired absence of both cervix and uterus; Z96.652 Presence of left artificial knee joint; Z98.890 Other specified postprocedural states; Z80.49 Family history of malignant neoplasm of other genital organs; Z80.1 Family history of malignant neoplasm of trachea, bronchus and lung
CPT/HCPCS: 96376; 96375 ×2; 96374; 99285; 36415; 94640; 93005; 93306; 97162; 97166; 80053; 82550; 84484; 85025; 85610; 85730; 71046; 70496; 70450; 70498; 70551; G0378 ×3; J2060; J2270; J1885 ×2; Q9967

== ENCOUNTER 2023-10-09 17:41 | Observation (INO) | payer MEDICARE, OTHER ==
--- NOTE | 2023-10-09 18:22 | ED ---
Chest Pain HPI - General Source: patient Mode of arrival: EMS Limitations: no limitations <Babar Oden - Last Filed: 10/09/23 21:03> <Humberto Gamez - Last Filed: 10/09/23 22:10> - General Chief Complaint: Chest Pain Stated Complaint: chest pains Time Seen by Provider: 10/09/23 17:59 - History of Present Illness Initial Comments: Dictation was produced using [employer] dictation software. please excuse any grammatical, word or spelling errors. Chief Complaint: 53-year-old female presents with chest pain History of Present Illness: 53-year-old female presents with several hours of chest pain. States that for the last 4 she's had sharp left anterior chest pain. States it radiates on her left arm. Patient has any history of heart attacks however she states that years ago she had a cardiac catheterization which showed some minor blockage. Patient tried some nitro which improved her symptoms. States that her pain is mild at the moment. Denies any diaphoresis or nausea. The ROS documented in this emergency department record has been reviewed and confirmed by me. Those systems with pertinent positive or negative responses have been documented in the HPI. All other systems are other negative and/or noncontributory. (Babar Oden) - Related Data Home Medications Medication Instructions Recorded Confirmed ARIPiprazole [Abilify] 10 mg PO DAILY 11/15/22 03/07/23 Albuterol Sulfate [Albuterol 2 puff INHALATION RT-Q6H PRN 11/15/22 03/07/23 Sulfate Hfa] Amitriptyline HCl [Elavil] 25 mg PO HS 11/15/22 03/07/23 Apixaban [Eliquis] 5 mg PO BID 11/15/22 03/07/23 Atorvastatin Calcium [Lipitor] 40 mg PO DAILY 11/15/22 03/07/23 Erenumab-Aooe [Aimovig 70 mg SQ QMONTHLY 11/15/22 03/07/23 Autoinjector] Insulin Aspart [NovoLOG Flexpen] 17 units SQ AC-TID 11/15/22 03/07/23 Insulin Aspart [NovoLOG Flexpen] See Protocol SQ AC-TID 11/15/22 03/07/23 Magnesium Oxide 400 mg PO DAILY 11/15/22 03/07/23 Montelukast Sodium [Singulair] 10 mg PO HS 11/15/22 03/07/23 Nitroglycerin Sl Tabs [Nitrostat] 0.4 mg SUBLINGUAL Q5M PRN 11/15/22 03/07/23 Omeprazole 40 mg PO BID 11/15/22 03/07/23 Ranolazine [Ranolazine ER] 500 mg PO BID 11/15/22 03/07/23 Topiramate [Topamax] 100 mg PO BID 11/15/22 03/07/23 clonazePAM [KlonoPIN] 1 mg PO BID 11/15/22 03/07/23 dilTIAZem HCL [dilTIAZem [id number] 240 mg PO DAILY 11/15/22 03/07/23 ER (CD)] methocarbamoL [Robaxin] 500 mg PO TID PRN 11/15/22 03/07/23 Isosorbide Mononitrate ER [Imdur] 60 mg PO DAILY 12/08/22 03/07/23 DULoxetine HCL [Cymbalta] 30 mg PO HS 02/03/23 03/07/23 DULoxetine HCL [Cymbalta] 60 mg PO HS 02/03/23 03/07/23 Insulin Detemir [Levemir Flextouch 20 units SQ HS 02/21/23 03/07/23 Pen] Multivitamins, Thera [Multivitamin 1 tab PO DAILY 02/28/23 03/07/23 (formulary)] Dulaglutide [Trulicity] 4.5 mg SQ TH 10/09/23 10/09/23 Famotidine [Pepcid] 20 mg PO BID 10/09/23 10/09/23 Fluticasone Nasal [place] [Flonase 1 spray EA NOSTRIL DAILY 10/09/23 10/09/23 Nasal [place]] Fluticasone Propion/Salmeterol 1 puff INHALATION RT-BID 10/09/23 10/09/23 [Fluticasone-Salmeterol 100-50] Furosemide [Lasix] 20 mg PO DAILY 10/09/23 10/09/23 Gabapentin [Neurontin] 100 mg PO TID 10/09/23 10/09/23 Insulin Degludec [Tresiba 30 units SQ DIRECTED 10/09/23 10/09/23 Flextouch U-100 Pen] Ipratropium-Albuterol Nebulize 3 ml INHALATION RT-QID PRN 10/09/23 10/09/23 [Duoneb 0.5 mg-3 mg/3 ml Soln] Prochlorperazine [Compazine] 5 mg PO BID PRN 10/09/23 10/09/23 Allergies Allergy/AdvReac Type Severity Reaction Status Date / Time adhesive Allergy red skin Verified 10/09/23 21:56 trimethobenzamide Allergy Rash/Hives Verified 10/09/23 21:56 [From Tigan] vancomycin Allergy Rash/Hives Verified 10/09/23 21:56 Review of Systems ROS Other: All systems not noted in ROS Statement are negative. <Babar Oden - Last Filed: 10/09/23 21:03> ROS Other: All systems not noted in ROS Statement are negative. <Humberto Gamez - Last Filed: 10/09/23 22:10> ROS Statement: Those systems with pertinent positive or pertinent negative responses have been documented in the HPI. Past Medical History Past Medical History: Asthma, Chest Pain / Angina, CVA/TIA, Diabetes Mellitus, Deep Vein Thrombosis (DVT), Fibromyalgia, GERD/Reflux, Hyperlipidemia, Hypertension, Liver Disease, Myocardial Infarction (MT) Additional Past Medical History / Comment(s): fibomyalgia, light weakness on left after stroke coming back. mild MT from EKG unknown time. will test for Sleep apnea. has scd at home. recent blood in stools. non alcoholic fatty liver,, diverticulosis. Last Myocardial Infarction Date:: unk History of Any Multi-Drug Resistant Organisms: None Reported, C-DIFF Date of last positivie culture/infection: 2019 MDRO Source:: stool Past Surgical History: Appendectomy, Cholecystectomy, Hysterectomy, Orthopedic Surgery Additional Past Surgical History / Comment(s): left knee replaced. left rotator cuff repair . rt hip stretched bursa. colonoscopies, laproscopic surgery to remove abdominal adhesions, left femur sx Past Anesthesia/Blood Transfusion Reactions: Postoperative Nausea & Vomiting (PONV) Additional Past Anesthesia/Blood Transfusion Reaction / Comment(s): with lap procedure had a hard time waking up. Past Psychological History: Bipolar, Depression Smoking Status: Never smoker Past Alcohol Use History: None Reported Past Drug Use History: Marijuana - Past Family History Mother Family Medical History: Cancer Additional Family Medical History / Comment(s): uterine Father Family Medical History: Cancer Additional Family Medical History / Comment(s): lung <Babar Oden - Last Filed: 10/09/23 21:03> General Exam Limitations: no limitations <Babar Oden - Last Filed: 10/09/23 21:03> - General Exam Comments Initial Comments: PHYSICAL EXAM: General Impression: Alert and oriented x3, not in acute distress HEENT: Normocephalic atraumatic, extra-ocular movements intact, pupils equal and reactive to light bilaterally, mucous membranes moist. Cardiovascular: Heart regular rate and rhythm Chest: Able to complete full sentences, no retractions, no tachypnea Abdomen: abdomen soft, non-tender, non-distended, no organomegaly Musculoskeletal: Pulses present and equal in all extremities, no peripheral edema Motor: no focal deficits noted Neurological: CN II-XII grossly intact, no focal motor or sensory deficits noted Skin: Intact with no visualized rashes Psych: Normal affect and mood (Babar Oden) Course <Babar Oden - Last Filed: 10/09/23 21:03> Vital Signs 10/09/23 10/09/23 10/09/23 17:43 17:45 18:07 Temperature 97.6 F Pulse Rate 95 83 Pulse Rate [ 89 Pulse Oximetery ] Respiratory 18 18 Rate Blood Pressure 143/84 133/69 O2 Sat by Pulse 99 98 Oximetry 10/09/23 10/09/23 19:37 21:00 Temperature Pulse Rate 80 81 Pulse Rate [ Pulse Oximetery ] Respiratory 18 16 Rate Blood Pressure 134/70 126/73 O2 Sat by Pulse 97 97 Oximetry - Reevaluation(s) Reevaluation #1: 10/09/23 18:22 My EKG interpretation: Ventricular rate 85, sinus rhythm,. 145, QRS and 2, QTc 44. No MA prolongation, no QTC prolongation, no ST or T-wave changes noted. Overall, this EKG is unremarkable (Babar Oden) Chest Pain MDM <Babar Oden - Last Filed: 10/09/23 21:03> - MDM Was pt. sent in by a medical professional or institution (, PA, SHINE WORKER, urgent care, hospital, or intermediate...) When possible be specific @ -No Did you speak to anyone other than the patient for history (EMS, parent, family, police, friend...)? What history was obtained from this source @ -No Did you review nursing and triage notes (agree or disagree)? Why? @ -I reviewed and agree with nursing and triage notes Were old charts reviewed (outside hosp., previous admission, EMS record, old EKG, old radiological studies, urgent care reports/EKG's, intermediate records)? Report findings @ -Stress test from last year shows normal findings Differential Diagnosis (chest pain, altered mental status, abdominal pain women, abdominal pain men, vaginal bleeding, musculoskeletal, weakness, fever, dyspnea, syncope, headache, dizziness, GI bleed, back pain, seizure, CVA, palpatations, mental health)? @ -Differential Chest Pain: Stable Angina, Unstable Angina, STEMI, NSTEMI Aortic Dissection, Pneumothorax, Musculoskeletal, Esophageal Spasm GERD, Cholecystitis, Pancreatitis, Zoster, this is not meant to be an all-inclusive list. EKG interpreted by me (3pts min.). @ -See above X-rays interpreted by me (1pt min.). @ -Chest X-ray is nonacute CT interpreted by me (1pt min.). @ -None done U/S interpreted by me (1pt. min.). @ -None done What testing was considered but not performed or refused? (CT, X-rays, U/S, labs)? Why? @ -None What meds were considered but not given or refused? Why? @ -None Did you discuss the management of the patient with other professionals (professionals i.e. BAO Nugent, SHINE WORKER, lab, RT, psych nurse, protective services social worker, mine motor operator, teacher, operations officer, immigration case worker)? Give summary @ -No Was smoking cessation discussed for >3mins.? @ -No Was critical care preformed (if so, how long)? @ -No Were there social determinants of health that impacted care today? How? (Homelessness, low income, unemployed, alcoholism, drug addiction, transportation, low edu. Level, literacy, decrease access to med. care, fdc, rehab)? @ -No Was there de-escalation of care discussed even if they declined (Discuss DNR or withdrawal of care, Hospice)? DNR status @ -No What co-morbidities impacted this encounter? (DM, HTN, Smoking, COPD, CAD, Cancer, CVA, ARF, Chemo, Hep., AIDS, mental health diagnosis, sleep apnea, morbid obesity)? @ -None Was patient admitted / discharged? Hospital course, mention meds given and route, prescriptions, significant lab abnormalities, going to OR and other pertinent info. @ -53-year-old female presents emergency department with chest pain with typical features. Vital signs upon arrival are within acceptable limits. EKG is unremarkable. Patient is sent out to Dr. Gamez at 9:00 PM pending troponin. Undiagnosed new problem with uncertain prognosis? @ -No Drug Therapy requiring intensive monitoring for toxicity (Heparin, Nitro, Insulin, Cardizem)? @ -No Were any procedures done? @ -No Diagnosis/symptom? Acute, or Chronic, or Acute on Chronic? Uncomplicated (without systemic symptoms) or Complicated (systemic symptoms)? @ -chest pain (Babar Oden) Disposition <Babar Oden - Last Filed: 10/09/23 21:03> Is patient prescribed a controlled substance at d/c from ED?: No Time of Disposition: 22:10 <Humberto Gamez - Last Filed: 10/09/23 22:10> Clinical Impression: Chest pain Disposition: ADMITTED IP TO THIS HOSP Condition: Stable Referrals: Brayden Valdovinos DO [Primary Care Provider] - 1-2 days
[2023-10-09] MEDS ORDERED: ONDANSETRON 4 MG/2 ML VIAL IVP STA (19:40)
--- NOTE | 2023-10-09 19:54 | XR ---
EXAMINATION TYPE: XR chest 2V DATE OF EXAM: 10/09/2023 7:31 PM CLINICAL INDICATION:Female, 53 years old with history of Chest Pain; [facility] COMPARISON: 03/14/2023 TECHNIQUE: XR chest 2V Frontal and lateral views of the chest. FINDINGS: Lines/Tubes: EKG leads overlie the chest. No indwelling lines are seen. Lungs/Pleura: There is no evidence of pleural effusion, focal consolidation, or pneumothorax. Pulmonary vascularity: Unremarkable. Heart/mediastinum: Cardiomediastinal silhouette is unremarkable. Musculoskeletal: No acute osseous pathology. Mild degenerative changes. Other findings: None significant. Upper abdominal surgical clips seen on the lateral view. IMPRESSION: No acute findings, or significant interval change.
[2023-10-09 20:24] LABS: Basophils % (A) 1 %; Eosinophils # (A) 0.1 k/uL (0-0.7); Eosinophils % (A) 3 %; HCT 38.3 % (34.0-46.0); HGB 12.8 gm/dL (11.4-16.0); Lymphocytes # (A) 1.5 k/uL (1.0-4.8); Lymphocytes % (A) 40 %; MCH 28.9 pg (25.0-35.0); MCHC 33.4 g/dL (31.0-37.0); MCV 86.6 fL (80.0-100.0); Monocytes # (A) 0.2 k/uL (0-1.0); Monocytes % (A) 7 %; Neutrophils # (A) 1.8 k/uL (1.3-7.7); Neutrophils % (A) 48 %; Platelet Count 237 k/uL (150-450); RBC 4.42 m/uL (3.80-5.40); RDW 15.4 % (11.5-15.5); WBC 3.7 k/uL (3.8-10.6)
[2023-10-09 20:31] LABS: INR 0.9 (<1.2); Partial Thromboplastin Time 24.5 sec (22.0-30.0); Prothrombin Time 10.4 sec (10.0-12.5)
[2023-10-09 21:44] LABS: ALT 21 U/L (4-34); AST 17 U/L (14-36); African American GFR (CKD) >90 (>60 ml/min/1.73 sqM); Albumin 3.3 g/dL (3.5-5.0); Alkaline Phosphatase 150 U/L (38-126); Anion Gap 6 mmol/L; Blood Urea Nitrogen 13 mg/dL (7-17); Calcium 8.8 mg/dL (8.4-10.2); Carbon Dioxide 25 mmol/L (22-30); Chloride 107 mmol/L (98-107); Glucose 165 mg/dL (74-99); Magnesium 1.8 mg/dL (1.6-2.3); Non-African American GFR(CKD) >90 (>60 ml/min/1.73 sqM); Potassium 3.8 mmol/L (3.5-5.1); Sodium 138 mmol/L (137-145); Total Bilirubin 0.4 mg/dL (0.2-1.3); Total Protein 5.7 g/dL (6.3-8.2)
[2023-10-09] MEDS ORDERED: MORPHINE SULFATE 2 MG/ML SYRINGE IVP STA (22:04)
[2023-10-09] MEDS ORDERED: ASPIRIN 325 MG TAB PO STA (22:04)
[2023-10-09] MEDS ORDERED: ACETAMINOPHEN TAB 325 MG TAB PO PRN (22:08)
[2023-10-09] MEDS ORDERED: NALOXONE 0.4 MG/ML 1 ML VIAL IV PRN (22:08)
[2023-10-10] MEDS: MORPHINE SULFATE 4 MG/ML SYRINGE IV PRN ×4 (04:54→21:12)
[2023-10-10] MEDS ORDERED: RANOLAZINE 500 MG TAB.ER.12H PO SCH (10:00)
[2023-10-10] MEDS ORDERED: ALBUTEROL NEBULIZED 2.5 MG/3 ML INHALATION PRN (10:04)
[2023-10-10] MEDS ORDERED: IPRATROPIUM-ALBUTEROL 3 ML NEB INHALATION PRN (10:04)
[2023-10-10] MEDS: RANOLAZINE 500 MG TAB.ER.12H PO SCH ×2 (10:45→21:04)
[2023-10-10] MEDS: ATORVASTATIN 40 MG TAB PO SCH (10:46)
[2023-10-10] MEDS: FUROSEMIDE 20 MG TAB PO SCH (10:46)
[2023-10-10] MEDS: APIXABAN 5 MG TAB PO SCH ×2 (10:46→21:06)
[2023-10-10] MEDS: ONDANSETRON 4 MG/2 ML VIAL IVP PRN ×2 (10:59→21:12)
[2023-10-10] MEDS: ISOSORBIDE MONONITRATE ER 60 MG TAB.ER.24H PO SCH (11:00)
[2023-10-10] MEDS: DILTIAZEM CD 240 MG CAP.ER.24H PO SCH (11:00)
--- NOTE | 2023-10-10 11:13 | P.CRDCN ---
History of Present Illness History of present illness: HISTORY OF PRESENT ILLNESS: This is a 53-year-old female with a past medical history significant for paroxysmal atrial fibrillation, DVT, hypertension, hyperlipidemia, diabetes, and CVA. Patient follows in the office with Dr. Loera. We have been asked to see the patient in consultation for chest pain. Patient examined at the bedside. The patient presented to the hospital with chief complaint of chest discomfort. Patient states she began having chest pain yesterday at home. She states the pain felt like a pressure type sensation. She denied any radiation of the pain. She did take 2 nitro at home which helped her chest pain so she came to the hospital for further evaluation. This morning, the patient states her chest pain is slightly worse than yesterday. Patient's EKG is nonischemic. Cardiac enzymes are negative 3. * EKG reveals sinus mechanism with no signs of acute ischemia * Chest xray no acute findings or significant interval change * Laboratory data: Troponin negative 3. D-dimer 0.35. * Most recent echocardiogram obtained in April 2023 revealed normal ejection fraction, mild TR, mild MR * Patient underwent dobutamine stress test in April 2023 which was negative for ischemia * Cardiac catheterization history: March 2020 revealing minimal CAD REVIEW OF SYSTEMS: At the time of my exam: CONSTITUTIONAL: Denies fever or chills. HEENT: Denies blurred vision, vision changes, or eye pain. Denies hemoptysis CARDIOVASCULAR: Denies chest pain. Denies orthopnea. Denies PND. Denies palpitations RESPIRATORY: Denies shortness of breath. GASTROINTESTINAL: Denies abdominal pain. Denies nausea or vomiting. HEMATOLOGIC: Denies bleeding disorders. GENITOURINARY: Denies any blood in urine. SKIN: Denies pruitis. Denies rash. PHYSICAL EXAM: VITAL SIGNS: Reviewed. GENERAL: Well-developed in no acute distress. HEENT: Head is normocephalic. Pupils are equal, round. Sclerae anicteric. Mucous membranes of the mouth are moist. Neck supple. No JVD or thyromegaly LUNGS: Respirations even and unlabored. Lungs essentially clear to auscultation bilaterally. HEART: Regular rate and rhythm. S1 and S2 heard. ABDOMEN: Soft. Nondistended. Nontender. EXTREMITIES: Normal range of motion. No clubbing or cyanosis. Peripheral pulses intact. No lower extremity edema NEUROLOGIC: Awake and alert. Oriented x 3. ASSESSMENT: Chest pain, troponins negative 3, with recent negative dobutamine stress test in April 2023 Minimal coronary artery disease, per cardiac catheterization, March 2020 Paroxysmal atrial fibrillation Hypertension Hyperlipidemia History of DVT History of CVA Diabetes Morbid obesity: BMI 39.4 PLAN: An acute coronary event has been rule out Resume home cardiac medications Increase Ranexa to 1000 mg twice a day Obtain 2-D echo to assess cardiac structure and function Further recommendations pending patient's course Nurse practitioner note has been reviewed by physician. Signing provider agrees with the documented findings, assessment, and plan of care. Past Medical History Past Medical History: Asthma, Chest Pain / Angina, CVA/TIA, Diabetes Mellitus, Deep Vein Thrombosis (DVT), Fibromyalgia, GERD/Reflux, Hyperlipidemia, Hypertension, Liver Disease, Myocardial Infarction (HI) Additional Past Medical History / Comment(s): fibomyalgia, light weakness on left after stroke coming back. mild HI from EKG unknown time. will test for Sleep apnea. has scd at home. recent blood in stools. non alcoholic fatty liver,, diverticulosis. Last Myocardial Infarction Date:: unk History of Any Multi-Drug Resistant Organisms: None Reported, C-DIFF Date of last positivie culture/infection: 2019 MDRO Source:: stool Past Surgical History: Appendectomy, Cholecystectomy, Hysterectomy, Orthopedic Surgery Additional Past Surgical History / Comment(s): left knee replaced. left rotator cuff repair . rt hip stretched bursa. colonoscopies, laproscopic surgery to remove abdominal adhesions, left femur sx Past Anesthesia/Blood Transfusion Reactions: Postoperative Nausea & Vomiting (PONV) Additional Past Anesthesia/Blood Transfusion Reaction / Comment(s): with lap procedure had a hard time waking up. Past Psychological History: Bipolar, Depression Smoking Status: Never smoker Past Alcohol Use History: None Reported Past Drug Use History: Marijuana - Past Family History Mother Family Medical History: Cancer Additional Family Medical History / Comment(s): uterine Father Family Medical History: Cancer Additional Family Medical History / Comment(s): lung Medications and Allergies Home Medications Medication Instructions Recorded Confirmed Type ARIPiprazole [Abilify] 10 mg PO DAILY 11/15/22 10/09/23 History Albuterol Sulfate [Albuterol 2 puff INHALATION RT-Q6H PRN 11/15/22 10/09/23 History Sulfate Hfa] Amitriptyline HCl [Elavil] 25 mg PO HS 11/15/22 10/09/23 History Apixaban [Eliquis] 5 mg PO BID 11/15/22 10/09/23 History Atorvastatin Calcium [Lipitor] 40 mg PO DAILY 11/15/22 10/09/23 History Erenumab-Aooe [Aimovig 70 mg SQ QMONTHLY 11/15/22 10/09/23 History Autoinjector] Insulin Aspart [NovoLOG Flexpen] 17 units SQ AC-TID 11/15/22 10/09/23 History Insulin Aspart [NovoLOG Flexpen] See Protocol SQ AC-TID 11/15/22 10/09/23 Hist ory Magnesium Oxide 400 mg PO DAILY 11/15/22 10/09/23 History Montelukast Sodium [Singulair] 10 mg PO HS 11/15/22 10/09/23 History Nitroglycerin Sl Tabs [Nitrostat] 0.4 mg SUBLINGUAL Q5M PRN 11/15/22 10/09/23 History Omeprazole 40 mg PO BID 11/15/22 10/09/23 History Ranolazine [Ranolazine ER] 500 mg PO BID 11/15/22 10/09/23 History Topiramate [Topamax] 100 mg PO BID 11/15/22 10/09/23 History clonazePAM [KlonoPIN] 1 mg PO BID 11/15/22 10/09/23 History dilTIAZem HCL [dilTIAZem [id number] 240 mg PO DAILY 11/15/22 10/09/23 History ER (CD)] methocarbamoL [Robaxin] 500 mg PO TID PRN 11/15/22 10/09/23 History Isosorbide Mononitrate ER [Imdur] 60 mg PO DAILY 12/08/22 10/09/23 History DULoxetine HCL [Cymbalta] 30 mg PO HS 02/03/23 10/09/23 History DULoxetine HCL [Cymbalta] 60 mg PO HS 02/03/23 10/09/23 History Insulin Detemir [Levemir Flextouch 45 units SQ HS 02/21/23 10/09/23 History Pen] Multivitamins, Thera [Multivitamin 1 tab PO DAILY 02/28/23 10/09/23 History (formulary)] Dulaglutide [Trulicity] 4.5 mg SQ TH 10/09/23 10/09/23 History Famotidine [Pepcid] 20 mg PO BID 10/09/23 10/09/23 History Fluticasone Nasal [place] [Flonase 1 spray EA NOSTRIL DAILY 10/09/23 10/09/23 History Nasal [place]] Fluticasone Propion/Salmeterol 1 puff INHALATION RT-BID 10/09/23 10/09/23 History [Fluticasone-Salmeterol 100-50] Furosemide [Lasix] 20 mg PO DAILY 10/09/23 10/09/23 History Gabapentin [Neurontin] 100 mg PO TID 10/09/23 10/09/23 History Insulin Degludec [Tresiba 30 units SQ DIRECTED 10/09/23 10/09/23 History Flextouch U-100 Pen] Ipratropium-Albuterol Nebulize 3 ml INHALATION RT-QID PRN 10/09/23 10/09/23 History [Duoneb 0.5 mg-3 mg/3 ml Soln] Prochlorperazine [Compazine] 5 mg PO BID PRN 10/09/23 10/09/23 History Allergies Allergy/AdvReac Type Severity Reaction Status Date / Time adhesive Allergy red skin Verified 10/09/23 21:56 trimethobenzamide Allergy Rash/Hives Verified 10/09/23 21:56 [From [facility]] vancomycin Allergy Rash/Hives Verified 10/09/23 21:56 Physical Exam Vitals: Vital Signs Temp Pulse Pulse Resp BP BP Pulse Ox 10/10/23 10:00 97.5 F L 84 16 155/81 97 10/10/23 09:38 97.9 F 81 18 153/80 93 L 10/10/23 08:31 81 18 118/92 97 10/10/23 06:01 98.4 F 69 16 118/83 96 10/10/23 04:51 75 16 142/75 95 10/10/23 01:04 97.8 F 76 16 127/69 99 10/09/23 22:42 82 16 124/74 98 10/09/23 21:00 81 16 126/73 97 10/09/23 19:37 80 18 134/70 97 10/09/23 18:07 89 10/09/23 17:45 83 18 133/69 98 10/09/23 17:43 97.6 F 95 18 143/84 99 Intake and Output 10/09/23 10/10/23 10/10/23 22:59 06:59 14:59 Other: Weight 110.677 kg Results 10/09/23 19:27 10/09/23 21:14 Cardiac Enzymes 10/09/23 10/09/23 10/10/23 Range/Units 21:14 21:14 00:02 AST 17 (14-36) U/L Troponin I <0.012 <0.012 (0.000-0.034) ng/mL 10/10/23 Range/Units 03:15 AST (14-36) U/L Troponin I <0.012 (0.000-0.034) ng/mL Coagulation 10/09/23 Range/Units 19:27 PT 10.4 (10.0-12.5) sec APTT 24.5 (22.0-30.0) sec CBC 10/09/23 Range/Units 19:27 WBC 3.7 L (3.8-10.6) k/uL RBC 4.42 (3.80-5.40) m/uL Hgb 12.8 (11.4-16.0) gm/dL Hct 38.3 (34.0-46.0) % Plt Count 237 (150-450) k/uL Comprehensive Metabolic Panel 10/09/23 Range/Units 21:14 Sodium 138 (137-145) mmol/L Potassium 3.8 (3.5-5.1) mmol/L Chloride 107 (98-107) mmol/L Carbon Dioxide 25 (22-30) mmol/L BUN 13 (7-17) mg/dL Creatinine 0.67 (0.52-1.04) mg/dL Glucose 165 H (74-99) mg/dL Calcium 8.8 (8.4-10.2) mg/dL AST 17 (14-36) U/L ALT 21 (4-34) U/L Alkaline Phosphatase 150 H (38-126) U/L Total Protein 5.7 L (6.3-8.2) g/dL Albumin 3.3 L (3.5-5.0) g/dL Current Medications Generic Name Dose Route Start Last Admin Trade Name Freq PRN Reason Stop Dose Admin Acetaminophen 650 mg 10/09/23 22:08 Acetaminophen Tab 325 Mg Tab PO Q6HR PRN Mild Pain or Fever > 100.5 Albuterol Sulfate 2.5 mg 10/10/23 10:04 Albuterol Nebulized 2.5 Mg/3 Ml INHALATION RT-Q6H PRN Shortness Of Breath Albuterol/Ipratropium 3 ml 10/10/23 10:04 Ipratropium-Albuterol 3 Ml Neb INHALATION RT-QID PRN Shortness Of Breath Amitriptyline HCl 25 mg 10/10/23 21:00 Amitriptyline Hcl 25 Mg Tab PO HS FRANCISCO JAVIER Apixaban 5 mg 10/10/23 10:00 10/10/23 10:46 Apixaban 5 Mg Tab PO 5 mg BID FRANCISCO JAVIER Administration Protocol Aripiprazole 10 mg 10/11/23 09:00 Aripiprazole 10 Mg Tab PO DAILY FRANCISCO JAVIER Atorvastatin Calcium 40 mg 10/10/23 10:00 10/10/23 10:46 Atorvastatin 40 Mg Tab PO 40 mg DAILY FRANCISCO JAVIER Administration Budesonide/Formoterol Fumarate 2 puff 10/10/23 20:00 Symbicort 80-4.5 Mcg Inhaler INHALATION RT-BID FRANCISCO JAVIER Clonazepam 1 mg 10/10/23 21:00 Clonazepam 1 Mg Tab PO BID FRANCISCO JAVIER Diltiazem HCl 240 mg 10/10/23 10:00 10/10/23 11:00 Diltiazem Cd 240 Mg Cap.Er.24h PO 240 mg DAILY FRANCISCO JAVIER Administration Duloxetine HCl 30 mg 10/10/23 21:00 Duloxetine Hcl 30 Mg Capsule.Dr PO HS FRANCISCO JAVIER Duloxetine HCl 60 mg 10/10/23 21:00 Duloxetine Hcl 60 Mg Capsule.Dr PO HS FRANCISCO JAVIER Famotidine 20 mg 10/10/23 21:00 Famotidine 20 Mg Tab PO BID FRANCISCO JAVIER Fluticasone Propionate 1 spray 10/11/23 09:00 Fluticasone 50mcg/[place] Nasal 16gm EA NOSTRIL DAILY FRANCISCO JAVIER Furosemide 20 mg 10/10/23 10:00 10/10/23 10:46 Furosemide 20 Mg Tab PO 20 mg DAILY FRANCISCO JAVIER Administration Gabapentin 100 mg 10/10/23 16:00 Gabapentin 100 Mg Cap PO TID FRANCISCO JAVIER Insulin Aspart 17 unit 10/10/23 12:30 Insulin Aspart (Novolog) 100 Unit/Ml Vial SQ AC-TID [facility] Insulin Detemir 40 unit 10/10/23 11:30 Insulin Detemir (Levemir) 100 Unit/Ml Syr SQ DAILY@0700 FRANCISCO JAVIER Isosorbide Mononitrate 60 mg 10/10/23 10:00 10/10/23 11:00 Isosorbide Mononitrate Er 60 Mg Tab.Er.24h PO 60 mg DAILY FRANCISCO JAVIER Administration Montelukast Sodium 10 mg 10/10/23 21:00 Montelukast 10 Mg Tab PO HS FRANCISCO JAVIER Morphine Sulfate 4 mg 10/09/23 22:08 10/10/23 08:36 Morphine Sulfate 4 Mg/Ml Syringe IV 4 mg Q4HR PRN Administration Severe Pain (Scale 7 to 10) Naloxone HCl 0.2 mg 10/09/23 22:08 Naloxone 0.4 Mg/Ml 1 Ml Vial IV Q2M PRN Opioid Reversal Ondansetron HCl 4 mg 10/09/23 22:08 10/10/23 10:59 Ondansetron 4 Mg/2 Ml Vial IVP 4 mg Q8HR PRN Administration Nausea And Vomiting Pantoprazole Sodium 40 mg 10/10/23 21:00 Pantoprazole 40 Mg Tablet PO BID FRANCISCO JAVIER Ranolazine 1,000 mg 10/10/23 10:15 10/10/23 10:45 Ranolazine 500 Mg Tab.Er.12h PO 500 mg BID FRANCISCO JAVIER Administration Topiramate 100 mg 10/10/23 21:00 Topiramate 100 Mg Tab PO BID FRANCISCO JAVIER Intake and Output 10/09/23 10/10/23 10/10/23 22:59 06:59 14:59 Other: Weight 110.677 kg 10/09/23 19:27 10/09/23 21:14
[2023-10-10 12:33] LABS: Glucose,Whole Blood 198 mg/dL (70-110)
[2023-10-10] MEDS: INSULIN DETEMIR (LEVEMIR) 100 UNIT/ML SYR SQ SCH (13:29)
[2023-10-10] MEDS: INSULIN ASPART (NovoLOG) 100 UNIT/ML VIAL SQ SCH ×2 (13:29→18:04)
[2023-10-10] MEDS: GABAPENTIN 100 MG CAP PO SCH ×2 (13:30→21:05)
--- NOTE | 2023-10-10 13:33 | P.HPIM ---
History of Present Illness H&P Date: 10/10/23 History of present illness; patient is a 53-year-old lady with past medical hist ory significant for hypertension, hyperlipidemia, coronary artery disease, diabetes mellitus, DVT with her the ER for chest pain. Patient stated that she was all right when she started experiencing sharp left-sided chest pain. Chest pain was sudden in onset, radiating down her left arm, no aggravating or relieving factors associated with chest pain. Patient did take some nitro that relieved her chest pain. Denies any shortness of breath. No complaints of nausea vomiting or abdominal pain. Denied any fever or chills. Because of this chest pain, she came to the ER Initial lab work done in the ER showed WBC 3.7, hemoglobin 12.8, platelet count 237, sodium 1:30, potassium 3.8, BUN 13, creatinine 0.67, glucose 165 troponin 0.012 EKG done in the ER heart rate of 85, no ST segment elevation seen, no T-wave inversions seen in any leads. Chest x-ray done in the ER no acute cardiopulmonary findings Patient admitted to [facility] REVIEW OF SYSTEMS: CONSTITUTIONAL: No fever, no malaise, no fatigue. HEENT: No recent visual problems or hearing problems. Denied any sore throat. CARDIOVASCULAR: As mentioned in HPI PULMONARY: No shortness of breath, no cough, no hemoptysis. GASTROINTESTINAL: No diarrhea, no nausea, no vomiting, no abdominal pain. NEUROLOGICAL: No headaches, no weakness, no numbness. HEMATOLOGICAL: Denies any bleeding or petechiae. GENITOURINARY: Denies any burning micturition, frequency, or urgency. MUSCULOSKELETAL/RHEUMATOLOGICAL: Denies any joint pain, swelling, or any muscle pain. ENDOCRINE: Denies any polyuria or polydipsia. The rest of the 14-point review of systems is negative. PHYSICAL EXAMINATION: GENERAL: The patient is alert and oriented x3, not in any acute distress. Well developed, well nourished. HEENT: Pupils are round and equally reacting to light. EOMI. No scleral icterus. No conjunctival pallor. Normocephalic, atraumatic. No pharyngeal erythema. No thyromegaly. CARDIOVASCULAR: S1 and S2 present. No murmurs, rubs, or gallops. PULMONARY: Chest is clear to auscultation, no wheezing or crackles. ABDOMEN: Soft, nontender, nondistended, normoactive bowel sounds. No palpable organomegaly. MUSCULOSKELETAL: No joint swelling or deformity. EXTREMITIES: No cyanosis, clubbing, or pedal edema. NEUROLOGICAL: Gross neurological examination did not reveal any focal deficits. SKIN: No rashes. Assessment and plan Chest pain, rule out acute coronary syndrome Insulin-dependent diabetes mellitus COPD Paroxysmal atrial fibrillation Hypertension Hyperlipidemia History of DVT History of CVA Morbid obesity: BMI 39.4 Monitor vital signs Monitor CBC Monitor CMP Continue telemetry monitoring Trend troponins. Ordered 2-D echo Monitor blood sugar levels, concerns Insulin Resume home meds Consult cardio Labs and medication were reviewed.. Continue same treatment. Continue with symptomatic treatment. Resume home medication. Monitor labs and vitals. DVT and GI prophylaxis. Further recommendations as per clinical course of the patient Dictation was produced using [employer] dictation software. please excuse any grammatical, word or spelling errors. Past Medical History Past Medical History: Asthma, Chest Pain / Angina, CVA/TIA, Diabetes Mellitus, Deep Vein Thrombosis (DVT), Fibromyalgia, GERD/Reflux, Hyperlipidemia, Hypertension, Liver Disease, Myocardial Infarction (SD) Additional Past Medical History / Comment(s): fibomyalgia, light weakness on left after stroke coming back. mild SD from EKG unknown time. will test for Sleep apnea. has scd at home. recent blood in stools. non alcoholic fatty liver, , diverticulosis. Last Myocardial Infarction Date:: unk History of Any Multi-Drug Resistant Organisms: None Reported, C-DIFF Date of last positivie culture/infection: 2019 MDRO Source:: stool Past Surgical History: Appendectomy, Cholecystectomy, Hysterectomy, Orthopedic Surgery Additional Past Surgical History / Comment(s): left knee replaced. left rotator cuff repair . rt hip stretched bursa. colonoscopies, laproscopic surgery to remove abdominal adhesions, left femur sx Past Anesthesia/Blood Transfusion Reactions: Postoperative Nausea & Vomiting (PONV) Additional Past Anesthesia/Blood Transfusion Reaction / Comment(s): with lap procedure had a hard time waking up. Past Psychological History: Bipolar, Depression Smoking Status: Never smoker Past Alcohol Use History: None Reported Past Drug Use History: Marijuana - Past Family History Mother Family Medical History: Cancer Additional Family Medical History / Comment(s): uterine Father Family Medical History: Cancer Additional Family Medical History / Comment(s): lung Medications and Allergies Home Medications Medication Instructions Recorded Confirmed Type ARIPiprazole [Abilify] 10 mg PO DAILY 11/15/22 10/09/23 History Albuterol Sulfate [Albuterol 2 puff INHALATION RT-Q6H PRN 11/15/22 10/09/23 History Sulfate Hfa] Amitriptyline HCl [Elavil] 25 mg PO HS 11/15/22 10/09/23 History Apixaban [Eliquis] 5 mg PO BID 11/15/22 10/09/23 History Atorvastatin Calcium [Lipitor] 40 mg PO DAILY 11/15/22 10/09/23 History Erenumab-Aooe [Aimovig 70 mg SQ QMONTHLY 11/15/22 10/09/23 History Autoinjector] Insulin Aspart [NovoLOG Flexpen] 17 units SQ AC-TID 11/15/22 10/09/23 History Insulin Aspart [NovoLOG Flexpen] See Protocol SQ AC-TID 11/15/22 10/09/23 History Magnesium Oxide 400 mg PO DAILY 11/15/22 10/09/23 History Montelukast Sodium [Singulair] 10 mg PO HS 11/15/22 10/09/23 History Nitroglycerin Sl Tabs [Nitrostat] 0.4 mg SUBLINGUAL Q5M PRN 11/15/22 10/09/23 History Omeprazole 40 mg PO BID 11/15/22 10/09/23 History Ranolazine [Ranolazine ER] 500 mg PO BID 11/15/22 10/09/23 History Topiramate [Topamax] 100 mg PO BID 11/15/22 10/09/23 History clonazePAM [KlonoPIN] 1 mg PO BID 11/15/22 10/09/23 History dilTIAZem HCL [dilTIAZem [id number] 240 mg PO DAILY 11/15/22 10/09/23 History ER (CD)] methocarbamoL [Robaxin] 500 mg PO TID PRN 11/15/22 10/09/23 History Isosorbide Mononitrate ER [Imdur] 60 mg PO DAILY 12/08/22 10/09/23 History DULoxetine HCL [Cymbalta] 30 mg PO HS 02/03/23 10/09/23 History DULoxetine HCL [Cymbalta] 60 mg PO HS 02/03/23 10/09/23 History Insulin Detemir [Levemir Flextouch 45 units SQ HS 02/21/23 10/09/23 History Pen] Multivitamins, Thera [Multivitamin 1 tab PO DAILY 02/28/23 10/09/23 History (formulary)] Dulaglutide [Trulicity] 4.5 mg SQ TH 10/09/23 10/09/23 History Famotidine [Pepcid] 20 mg PO BID 10/09/23 10/09/23 History Fluticasone Nasal [place] [Flonase 1 spray EA NOSTRIL DAILY 10/09/23 10/09/23 History Nasal [place]] Fluticasone Propion/Salmeterol 1 puff INHALATION RT-BID 10/09/23 10/09/23 History [Fluticasone-Salmeterol 100-50] Furosemide [Lasix] 20 mg PO DAILY 10/09/23 10/09/23 History Gabapentin [Neurontin] 100 mg PO TID 10/09/23 10/09/23 History Insulin Degludec [Tresiba 30 units SQ DIRECTED 10/09/23 10/09/23 History Flextouch U-100 Pen] Ipratropium-Albuterol Nebulize 3 ml INHALATION RT-QID PRN 10/09/23 10/09/23 History [Duoneb 0.5 mg-3 mg/3 ml Soln] Prochlorperazine [Compazine] 5 mg PO BID PRN 10/09/23 10/09/23 History Allergies Allergy/AdvReac Type Severity Reaction Status Date / Time adhesive Allergy red skin Verified 10/09/23 21:56 trimethobenzamide Allergy Rash/Hives Verified 10/09/23 21:56 [From [facility]] vancomycin Allergy Rash/Hives Verified 10/09/23 21:56 Physical Exam Vitals: Vital Signs Temp Pulse Pulse Resp BP Pulse Ox 10/10/23 09:38 97.9 F 81 18 153/80 93 L 10/10/23 08:31 81 18 118/92 97 10/10/23 06:01 98.4 F 69 16 118/83 96 10/10/23 04:51 75 16 142/75 95 10/10/23 01:04 97.8 F 76 16 127/69 99 10/09/23 22:42 82 16 124/74 98 10/09/23 21:00 81 16 126/73 97 10/09/23 19:37 80 18 134/70 97 10/09/23 18:07 89 10/09/23 17:45 83 18 133/69 98 10/09/23 17:43 97.6 F 95 18 143/84 99 Intake and Output 10/09/23 10/10/23 10/10/23 22:59 06:59 14:59 Other: Weight 110.677 kg Results CBC & Chem 7: 10/09/23 19:27 10/09/23 21:14 Labs: Abnormal Lab Results - Last 24 Hours (Table) 10/09/23 10/09/23 Range/Units 19:27 21:14 WBC 3.7 L (3.8-10.6) k/uL Glucose 165 H (74-99) mg/dL Alkaline Phosphatase 150 H (38-126) U/L Total Protein 5.7 L (6.3-8.2) g/dL Albumin 3.3 L (3.5-5.0) g/dL
[2023-10-10 17:19] LABS: Glucose,Whole Blood 95 mg/dL (70-110)
--- NOTE | 2023-10-10 17:51 | CA ---
Transthoracic Echo Report Name: Aurora Tsai Age: 53 Gender: F : 1970 Exam Date: 10/10/2023 13:25 Exam Location: [facility] Ht (in): 66 Wt (lb): 244 Ordering Physician: Lizzette Medina Attending/Referring Phys: [id number], Adam Supervisor Curing Room Maile Crabtree RDCS Procedure CPT: Indications: LV function, CP Cardiac Hx: Technical Quality: Fair Contrast 1: Total Dose (mL): Contrast 2: Total Dose (mL): MEASUREMENTS (Male / Female) Normal Values 2D ECHO LV Diastolic Diameter PLAX 4.1 cm 4.2 - 5.9 / 3.9 - 5.3 cm LV Systolic Diameter PLAX 2.5 cm IVS Diastolic Thickness 1.2 cm 0.6 - 1.0 / 0.6 - 0.9 cm LVPW Diastolic Thickness 1.1 cm 0.6 - 1.0 / 0.6 - 0.9 cm LV Relative Wall Thickness 0.6 RV Internal Dim ED PLAX 3.1 cm LA Volume 38.9 cm??? 18 - 58 / 22 - 52 cm??? LA Volume Index 16.8 cm???/m??? 16 - 28 cm???/m??? M-MODE Aortic Root Diameter MM 3.3 cm LA Systolic Diameter MM 3.7 cm LA Ao Ratio MM 1.1 AV Cusp Separation MM 2.2 cm DOPPLER AV Peak Velocity 141.1 cm/s AV Peak Gradient 8.0 mmHg AV Mean Velocity 103.8 cm/s AV Mean Gradient 4.7 mmHg AV Velocity Time Integral 28.4 cm LVOT Peak Velocity 117.1 cm/s LVOT Peak Gradient 5.5 mmHg LVOT Velocity Time Integral 26.6 cm MV Area PHT 3.6 cm??? Mitral E Point Velocity 74.6 cm/s Mitral A Point Velocity 97.7 cm/s Mitral E to A Ratio 0.8 MV Deceleration Time 208.5 ms MV E' Velocity 7.9 cm/s Mitral E to MV E' Ratio 9.5 TR Peak Velocity 150.7 cm/s TR Peak Gradient 9.1 mmHg Right Ventricular Systolic Press 14.1 mmHg FINDINGS Left Ventricle Mildly increased left ventricular wall thickness. Left ventricular cavity size normal. Normal left ventricular systolic function with no obvious regional wall motion abnormalities. Left ventricular ejection fraction is estimated at 55-60 %. Right Ventricle Normal right ventricular size and function. Right ventricular systolic pressure within normal limits. Right Atrium Normal right atrial size. Left Atrium Normal left atrial size. Mitral Valve Structurally normal mitral valve. Mild mitral annular calcification. Mild mitral regurgitation. Aortic Valve Trileaflet aortic valve. No aortic valve stenosis or regurgitation. Tricuspid Valve Structurally normal tricuspid valve. Mild tricuspid regurgitation. Pulmonic Valve Trace pulmonic regurgitation. Pericardium No pericardial effusion. Aorta Normal size aortic root and proximal ascending aorta. CONCLUSIONS Normal LV function Mild mitral regurgitation Previewed by: Dr. Nick Oglesby MD (Electronically Signed) Final Date: 10 October 2023 17:50
[2023-10-10 20:43] LABS: Glucose,Whole Blood 172 mg/dL (70-110)
[2023-10-10] MEDS: SYMBICORT 80-4.5 MCG INHALER INHALATION SCH (20:56)
[2023-10-10] MEDS ORDERED: MONTELUKAST 10 MG TAB PO SCH (21:00)
[2023-10-10] MEDS ORDERED: DULoxetine HCL 60 MG CAPSULE.DR PO SCH (21:00)
[2023-10-10] MEDS ORDERED: AMITRIPTYLINE HCL 25 MG TAB PO SCH (21:00)
[2023-10-10] MEDS ORDERED: DULoxetine HCL 30 MG CAPSULE.DR PO SCH (21:00)
[2023-10-10] MEDS ORDERED: INSULIN DETEMIR (LEVEMIR) 100 UNIT/ML SYR SQ SCH (21:00)
[2023-10-10] MEDS: FAMOTIDINE 20 MG TAB PO SCH (21:06)
[2023-10-10] MEDS: clonazePAM 1 MG TAB PO SCH (21:06)
[2023-10-10] MEDS: PANTOPRAZOLE 40 MG TABLET PO SCH (21:06)
[2023-10-10] MEDS: TOPIRAMATE 100 MG TAB PO SCH (21:06)
[2023-10-11] MEDS: MORPHINE SULFATE 4 MG/ML SYRINGE IV PRN ×2 (03:55→12:33)
[2023-10-11 05:55] LABS: Glucose,Whole Blood 146 mg/dL (70-110)
[2023-10-11] MEDS: INSULIN ASPART (NovoLOG) 100 UNIT/ML VIAL SQ SCH ×2 (05:58→13:59)
[2023-10-11] MEDS: INSULIN DETEMIR (LEVEMIR) 100 UNIT/ML SYR SQ SCH ×2 (05:58→09:13)
[2023-10-11] MEDS ORDERED: DOBUTamine DRIP for NUC MED 500 MG in DEXTROSE/WATER 1 250ML.BAG IV PRN (07:48)
[2023-10-11 07:57] VITALS: BP 126/90; PULSE 68; RESP 16; TEMP 98
[2023-10-11] MEDS ORDERED: DOBUTamine DRIP for NUC MED 500 MG/250 ML BAG IV ONE (08:00)
--- NOTE | 2023-10-11 08:26 | P.PN ---
Subjective HISTORY OF PRESENT ILLNESS: This is a 53-year-old female with a past medical history significant for paroxysmal atrial fibrillation, DVT, hypertension, hyperlipidemia, diabetes, and CVA. Patient follows in the office with Dr. Loera. We have been asked to see the patient in consultation for chest pain. Patient examined at the bedside. The patient presented to the hospital with chief complaint of chest discomfort. Patient states she began having chest pain yesterday at home. She states the pain felt like a pressure type sensation. She denied any radiation of the pain. She did take 2 nitro at home which helped her chest pain so she came to the hospital for further evaluation. This morning, the patient states her chest pain is slightly worse than yesterday. Patient's EKG is nonischemic. Cardiac enzymes are negative 3. * EKG reveals sinus mechanism with no signs of acute ischemia * Chest xray no acute findings or significant interval change * Laboratory data: Troponin negative 3. D-dimer 0.35. * Most recent echocardiogram obtained in April 2023 revealed normal ejection fraction, mild TR, mild MR * Patient underwent dobutamine stress test in April 2023 which was negative for ischemia * Cardiac catheterization history: March 2020 revealing minimal CAD 10/11/2023 Patient examined this morning at the bedside. Patient denies any cough or shortness of breath. She continues to have chest pain despite increase in Ranexa. Echocardiogram completed revealing ejection fraction 55-60% with no wall motion abnormalities and mild mitral regurgitation. PHYSICAL EXAM: VITAL SIGNS: Reviewed. GENERAL: Well-developed in no acute distress. HEENT: Head is normocephalic. Pupils are equal, round. Sclerae anicteric. Mucous membranes of the mouth are moist. Neck supple. No JVD or thyromegaly LUNGS: Respirations even and unlabored. Lungs essentially clear to auscultation bilaterally. HEART: Regular rate and rhythm. S1 and S2 heard. ABDOMEN: Soft. Nondistended. Nontender. EXTREMITIES: Normal range of motion. No clubbing or cyanosis. Peripheral pulses intact. No lower extremity edema NEUROLOGIC: Awake and alert. Oriented x 3. ASSESSMENT: Chest pain, troponins negative 3, with recent negative dobutamine stress test in April 2023 Minimal coronary artery disease, per cardiac catheterization, March 2020 Paroxysmal atrial fibrillation Hypertension Hyperlipidemia History of DVT History of CVA Diabetes Morbid obesity: BMI 39.4 PLAN: Continue current cardiac medications Ranexa increased yesterday to 1000 mg twice a day Patient to undergo dobutamine stress test today If negative, she may be discharged home today from a cardiac standpoint Nurse practitioner note has been reviewed by physician. Signing provider agrees with the documented findings, assessment, and plan of care. Objective - Vital Signs Vital signs: Vital Signs Temp 98.0 F 10/11/23 07:00 Pulse 68 10/11/23 07:00 Resp 16 10/11/23 07:00 BP 126/90 10/11/23 07:00 Pulse Ox 98 10/11/23 07:00 FiO2 Intake & Output 10/10/23 10/11/23 10/11/23 18:59 06:59 18:59 Weight 110.677 kg Other: # Voids 2 2 - Labs CBC & Chem 7: 10/09/23 19:27 10/09/23 21:14 Labs: Abnormal Lab Results - Last 24 Hours (Table) 10/10/23 10/10/23 10/11/23 Range/Units 12:29 20:42 05:53 POC Glucose (mg/dL) 198 H 172 H 146 H (70-110) mg/dL
[2023-10-11] MEDS: SYMBICORT 80-4.5 MCG INHALER INHALATION SCH (08:46)
[2023-10-11] MEDS ORDERED: FLUTICASONE 50MCG/SPRAY NASAL 16GM EA NOSTRIL SCH (09:00)
[2023-10-11] MEDS ORDERED: ARIPiprazole 10 MG TAB PO SCH (09:00)
[2023-10-11] MEDS: PANTOPRAZOLE 40 MG TABLET PO SCH (09:13)
[2023-10-11] MEDS: APIXABAN 5 MG TAB PO SCH (09:13)
[2023-10-11] MEDS: RANOLAZINE 500 MG TAB.ER.12H PO SCH (09:13)
[2023-10-11] MEDS: FUROSEMIDE 20 MG TAB PO SCH (09:13)
[2023-10-11] MEDS: FAMOTIDINE 20 MG TAB PO SCH (09:13)
[2023-10-11] MEDS: TOPIRAMATE 100 MG TAB PO SCH (09:14)
[2023-10-11] MEDS: ISOSORBIDE MONONITRATE ER 60 MG TAB.ER.24H PO SCH (09:14)
[2023-10-11] MEDS: ATORVASTATIN 40 MG TAB PO SCH (09:14)
[2023-10-11] MEDS: GABAPENTIN 100 MG CAP PO SCH (09:17)
[2023-10-11] MEDS: clonazePAM 1 MG TAB PO SCH (09:17)
[2023-10-11] MEDS: DILTIAZEM CD 240 MG CAP.ER.24H PO SCH (12:30)
--- NOTE | 2023-10-11 12:48 | P.DS ---
Providers Date of admission: 10/09/23 22:08 Expected date of discharge: 10/11/23 Attending physician: Velvet Henderson Consults: 10/09/23 22:08 Consult Physician Routine Consulting Provider: Shorty Vincent Consult Reason/Comments: CP rule out Do you want consulting provider notified?: Yes Primary care physician: Brayden Valdovinos [facility] Hospital Course: Discharge diagnoses; Chest pain, troponins negative 3, with recent negative dobutamine stress test in April 2023 Minimal coronary artery disease, per cardiac catheterization, March 2020 Paroxysmal atrial fibrillation Hypertension Hyperlipidemia History of DVT History of CVA Diabetes Morbid obesity: BMI 39.4 Hospital course; patient is a 53-year-old lady with past medical history significant for hypertension, hyperlipidemia, coronary artery disease, diabetes mellitus, DVT with her the ER for chest pain. Patient stated that she was all right when she started experiencing sharp left-sided chest pain. Chest pain was sudden in onset, radiating down her left arm, no aggravating or relieving factors associated with chest pain. Patient did take some nitro that relieved her chest pain. Denies any shortness of breath. No complaints of nausea vomiting or abdominal pain. Denied any fever or chills. Because of this chest pain, she came to the ER Initial lab work done in the ER showed WBC 3.7, hemoglobin 12.8, platelet count 237, sodium 1:30, potassium 3.8, BUN 13, creatinine 0.67, glucose 165 troponin 0.012 EKG done in the ER heart rate of 85, no ST segment elevation seen, no T-wave inversions seen in any leads. Chest x-ray done in the ER no acute cardiopulmonary findings Patient admitted to medicine service 10/11. Patient seen and examined. Patient had stress test done, read by cardiology as negative. Cardiology cleared the patient for discharge. PHYSICAL EXAMINATION: GENERAL: The patient is alert and oriented x3, not in any acute distress. Well developed, well nourished. HEENT: Pupils are round and equally reacting to light. EOMI. No scleral icterus. No conjunctival pallor. Normocephalic, atraumatic. No pharyngeal erythema. No thyromegaly. CARDIOVASCULAR: S1 and S2 present. No murmurs, rubs, or gallops. PULMONARY: Chest is clear to auscultation, no wheezing or crackles. ABDOMEN: Soft, nontender, nondistended, normoactive bowel sounds. No palpable organomegaly. MUSCULOSKELETAL: No joint swelling or deformity. EXTREMITIES: No cyanosis, clubbing, or pedal edema. NEUROLOGICAL: Gross neurological examination did not reveal any focal deficits. SKIN: No rashes. Dictation was produced using [employer] dictation software. please excuse any grammatical, word or spelling errors. Patient Condition at Discharge: Stable Plan - Discharge Summary New Discharge Prescriptions: New Ranolazine [Ranexa] 1,000 mg PO BID 30 Days #60 tab Continue methocarbamoL [Robaxin] 500 mg PO TID PRN PRN Reason: MIGRAINES Omeprazole 40 mg PO BID Nitroglycerin Sl Tabs [Nitrostat] 0.4 mg SUBLINGUAL Q5M PRN PRN Reason: Chest Pain Insulin Aspart [NovoLOG Flexpen] 17 units SQ AC-TID Montelukast Sodium [Singulair] 10 mg PO HS Magnesium Oxide 400 mg PO DAILY Atorvastatin Calcium [Lipitor] 40 mg PO DAILY ARIPiprazole [Abilify] 10 mg PO DAILY Albuterol Sulfate [Albuterol Sulfate Hfa] 2 puff INHALATION RT-Q6H PRN PRN Reason: Shortness Of Breath Isosorbide Mononitrate ER [Imdur] 60 mg PO DAILY DULoxetine HCL [Cymbalta] 30 mg PO HS Insulin Detemir [Levemir Flextouch Pen] 45 units SQ HS Famotidine [Pepcid] 20 mg PO BID Furosemide [Lasix] 20 mg PO DAILY Gabapentin [Neurontin] 100 mg PO TID Insulin Degludec [Tresiba Flextouch U-100 Pen] 30 units SQ DIRECTED Ipratropium-Albuterol Nebulize [Duoneb 0.5 mg-3 mg/3 ml Soln] 3 ml INHALATION RT-QID PRN PRN Reason: Shortness Of Breath Prochlorperazine [Compazine] 5 mg PO BID PRN PRN Reason: Nausea Topiramate [Topamax] 100 mg PO BID Insulin Aspart [NovoLOG Flexpen] See Protocol SQ AC-TID Apixaban [Eliquis] 5 mg PO BID dilTIAZem HCL [dilTIAZem [id number] ER (CD)] 240 mg PO DAILY clonazePAM [KlonoPIN] 1 mg PO BID Amitriptyline HCl [Elavil] 25 mg PO HS Erenumab-Aooe [Aimovig Autoinjector] 70 mg SQ QMONTHLY DULoxetine HCL [Cymbalta] 60 mg PO HS Multivitamins, Thera [Multivitamin (formulary)] 1 tab PO DAILY Dulaglutide [Trulicity] 4.5 mg SQ TH Fluticasone Nasal [place] [Flonase Nasal [place]] 1 spray EA NOSTRIL DAILY Fluticasone Propion/Salmeterol [Fluticasone-Salmeterol 100-50] 1 puff INHALATION RT-BID Discontinued Ranolazine [Ranolazine ER] 500 mg PO BID Discharge Medication List ARIPiprazole [Abilify] 10 mg PO DAILY 11/15/22 [History] Albuterol Sulfate [Albuterol Sulfate Hfa] 2 puff INHALATION RT-Q6H PRN 11/15/22 [History] Amitriptyline HCl [Elavil] 25 mg PO HS 11/15/22 [History] Apixaban [Eliquis] 5 mg PO BID 11/15/22 [History] Atorvastatin Calcium [Lipitor] 40 mg PO DAILY 11/15/22 [History] Erenumab-Aooe [Aimovig Autoinjector] 70 mg SQ QMONTHLY 11/15/22 [History] Insulin Aspart [NovoLOG Flexpen] 17 units SQ AC-TID 11/15/22 [History] Insulin Aspart [NovoLOG Flexpen] See Protocol SQ AC-TID 11/15/22 [History] Magnesium Oxide 400 mg PO DAILY 11/15/22 [History] Montelukast Sodium [Singulair] 10 mg PO HS 11/15/22 [History] Nitroglycerin Sl Tabs [Nitrostat] 0.4 mg SUBLINGUAL Q5M PRN 11/15/22 [History] Omeprazole 40 mg PO BID 11/15/22 [History] Topiramate [Topamax] 100 mg PO BID 11/15/22 [History] clonazePAM [KlonoPIN] 1 mg PO BID 11/15/22 [History] dilTIAZem HCL [dilTIAZem [id number] ER (CD)] 240 mg PO DAILY 11/15/22 [History] methocarbamoL [Robaxin] 500 mg PO TID PRN 11/15/22 [History] Isosorbide Mononitrate ER [Imdur] 60 mg PO DAILY 12/08/22 [History] DULoxetine HCL [Cymbalta] 30 mg PO HS 02/03/23 [History] DULoxetine HCL [Cymbalta] 60 mg PO HS 02/03/23 [History] Insulin Detemir [Levemir Flextouch Pen] 45 units SQ HS 02/21/23 [History] Multivitamins, Thera [Multivitamin (formulary)] 1 tab PO DAILY 02/28/23 [History] Dulaglutide [Trulicity] 4.5 mg SQ TH 10/09/23 [History] Famotidine [Pepcid] 20 mg PO BID 10/09/23 [History] Fluticasone Nasal [place] [Flonase Nasal [place]] 1 spray EA NOSTRIL DAILY 10/09/23 [History] Fluticasone Propion/Salmeterol [Fluticasone-Salmeterol 100-50] 1 puff INHALATION RT-BID 10/09/23 [History] Furosemide [Lasix] 20 mg PO DAILY 10/09/23 [History] Gabapentin [Neurontin] 100 mg PO TID 10/09/23 [History] Insulin Degludec [Tresiba Flextouch U-100 Pen] 30 units SQ DIRECTED 10/09/23 [History] Ipratropium-Albuterol Nebulize [Duoneb 0.5 mg-3 mg/3 ml Soln] 3 ml INHALATION RT-QID PRN 10/09/23 [History] Prochlorperazine [Compazine] 5 mg PO BID PRN 10/09/23 [History] Ranolazine [Ranexa] 1,000 mg PO BID 30 Days #60 tab 10/11/23 [Rx] Follow up Appointment(s)/Referral(s): Brayden Valdovinos DO [Primary Care Provider] - 1-2 days Nick Oglesby MD [STAFF PHYSICIAN] - 1 Week
[2023-10-11 13:17] LABS: Glucose,Whole Blood 140 mg/dL (70-110)
--- NOTE | 2023-10-11 17:12 | CA ---
Dobutamine Stress Echocardiogram Report Aurora Tsai Age: 53 Gender: F : 1970 Exam Date: 10/11/2023 11:13 Exam Location: [facility] Ordering Physician: Lizzette Medina Referring Physician: [id number] Ice Cutter: Maile Crabtree RDCS Technologist: Ht (in): Wt (lb): Procedure CPT: Indication: CP ICD-9 Codes: Rhythm: Patient History: CP, TATI, PALP, ANGINA, HTN, DM, CVA, CHOL, FAMILY HX, CATH, COPD, ASTHMA Cardiac Medications: SEE CHART Medications in past 24 hours: Contrast: Definity Total Dose (mL): Stress Results Protocol: Dobutamine Peak Dose (???g/kg/min): 40 Duration (min:sec): Atropine:(mg) 0.5 Target HR: 142 Double Product: 01917 Resting HR: 80 Resting BP: 123 / 73 Peak HR: 138 Peak BP: 209 / 66 Max Predicted HR: 167 83 % Max Predicted HR Stress Summary: BP Response: Reason for Termination: Exceeded target heart rate (85% max predicted) Cardiac Symptoms: ASYMPTOMATIC ECG Analysis Resting EKG: Normal sinus rhythm normal axis normal intervals Stress EKG: No significant ST segment depression Arrhythmia: Echo Analysis Base Echo Analysis: Normal left ventricle a size wall motion systolic function Low Echo Anaylsis: Normal hyperdynamic response Peak Echo Analysis: Normal hyperdynamic response Recovery Echo: Normal MEASUREMENTS (Male/Female) Normal Values CONCLUSIONS Negative dobutamine stress echo Dr. Nick Oglesby MD (Electronically Signed) Final Date: 11 October 2023 17:11
== END 2023-10-11 14:10 | disposition home or self-care (01) ==
LOC: EC 17:41 → 6NMEDSUR 22:08
PROVIDERS: ADMIT Hospitalist; ATTEND Hospitalist
DX: R07.89 Other chest pain (principal); I48.0 Paroxysmal atrial fibrillation; I08.1 Rheumatic disorders of both mitral and tricuspid valves; J44.89 Other specified chronic obstructive pulmonary disease; I25.10 Atherosclerotic heart disease of native coronary artery without angina pectoris; I10 Essential (primary) hypertension; E78.5 Hyperlipidemia, unspecified; E11.9 Type 2 diabetes mellitus without complications; M79.7 Fibromyalgia; K21.9 Gastro-esophageal reflux disease without esophagitis; K57.90 Diverticulosis of intestine, part unspecified, without perforation or abscess without bleeding; G47.30 Sleep apnea, unspecified; I25.2 Old myocardial infarction; K76.0 Fatty (change of) liver, not elsewhere classified; E66.01 Morbid (severe) obesity due to excess calories; Z68.39 Body mass index [BMI] 39.0-39.9, adult; F31.9 Bipolar disorder, unspecified; Z79.01 Long term (current) use of anticoagulants; Z79.4 Long term (current) use of insulin; Z79.85 Long-term (current) use of injectable non-insulin antidiabetic drugs; Z79.51 Long term (current) use of inhaled steroids; Z79.899 Other long term (current) drug therapy; Z88.1 Allergy status to other antibiotic agents; Z88.8 Allergy status to other drugs, medicaments and biological substances; Z91.048 Other nonmedicinal substance allergy status; Z16.39 Resistance to other specified antimicrobial drug; Z86.718 Personal history of other venous thrombosis and embolism; Z86.73 Personal history of transient ischemic attack (TIA), and cerebral infarction without residual deficits; Z90.49 Acquired absence of other specified parts of digestive tract; Z90.710 Acquired absence of both cervix and uterus; Z96.652 Presence of left artificial knee joint; Z98.890 Other specified postprocedural states; Z80.49 Family history of malignant neoplasm of other genital organs; Z80.1 Family history of malignant neoplasm of trachea, bronchus and lung
CPT/HCPCS: 96376 ×3; 96374; 96375; 99285; 36415; 93005; 93306; 85379; 80053; 83735; 84484 ×2; 85025; 85610; 85730; 71046; G0378 ×3; C8930; J1250; J2270 ×3; J2405 ×2; 93351

== ENCOUNTER → 2023-10-17 | Outpatient (CLI) | payer MEDICARE, OTHER ==
--- NOTE | 2023-10-17 16:37 | XR ---
EXAMINATION TYPE: XR ankle complete LT DATE OF EXAM: 10/17/2023 3:12 PM CLINICAL INDICATION:Female, 53 years old with history of S82.90XA; PH[facility] COMPARISON: None TECHNIQUE: XR ankle complete LT; ankle is imaged in frontal, lateral and oblique projections. FINDINGS/IMPRESSION: 1. There is a fracture through the distal fibula which may be the remote fracture given and provided history. Correlate with point tenderness. There is soft tissue swelling throughout the ankle. 2. Calcaneal plantar spurring. 3. Mild multifocal osteoarthrosis changes. 4. Remote deltoid ligamentous injury.
== END | disposition home or self-care (01) ==
LOC: RADXRMAIN 14:52
PROVIDERS: ATTEND Nurse Practitioner Family
DX: M77.32 Calcaneal spur, left foot (principal); S82.92XA Unspecified fracture of left lower leg, initial encounter for closed fracture; M19.072 Primary osteoarthritis, left ankle and foot; S93.422A Sprain of deltoid ligament of left ankle, initial encounter; M79.89 Other specified soft tissue disorders; X58.XXXA Exposure to other specified factors, initial encounter

== ENCOUNTER 2023-10-27 13:44 | Emergency (ER) | payer MEDICARE, OTHER ==
--- NOTE | 2023-10-27 14:22 | ED ---
General Adult HPI - General Source: patient, RN notes reviewed Mode of arrival: ambulatory Limitations: no limitations <Jean Martinez - Last Filed: 10/27/23 14:21> <Mindy Ceron - Last Filed: 10/27/23 23:45> - General Stated complaint: Sick Time Seen by Provider: 10/27/23 14:21 - History of Present Illness Initial comments: 53-year-old female presents emergency Department with chief complaint of nausea vomiting diarrhea. Patient was sent in by [facility] for evaluation. She has a known diabetic. Blood sugar was 120 today. Patient states that she cannot keep anything down should decreased urine output. (Jean Martinez) 53-year-old female presents emergency department chief complaint of nausea and vomiting. She states the symptoms started 6 days ago. She is reports at that time she was having diarrhea but since then has not had a bowel movement. She states her last bowel movement was about 5 days ago. She also admits to decreased urine output. She states that she is a diabetic. She does state that she had a fever of 101 degrees today. Denies upper respiratory symptoms. (Mindy Jenkins) - Related Data Home Medications Medication Instructions Recorded Confirmed Albuterol Sulfate [Albuterol 2 puff INHALATION RT-Q6H PRN 11/15/22 10/27/23 Sulfate Hfa] Amitriptyline HCl [Elavil] 25 mg PO HS 11/15/22 10/27/23 Apixaban [Eliquis] 5 mg PO BID 11/15/22 10/27/23 Atorvastatin Calcium [Lipitor] 40 mg PO DAILY 11/15/22 10/27/23 Erenumab-Aooe [Aimovig 70 mg SQ QMONTHLY 11/15/22 10/27/23 Autoinjector] Insulin Aspart [NovoLOG Flexpen] 17 units SQ AC-TID 11/15/22 10/27/23 Insulin Aspart [NovoLOG Flexpen] See Protocol SQ AC-TID 11/15/22 10/27/23 Magnesium Oxide 400 mg PO DAILY 11/15/22 10/27/23 Montelukast Sodium [Singulair] 10 mg PO HS 11/15/22 10/27/23 Nitroglycerin Sl Tabs [Nitrostat] 0.4 mg SUBLINGUAL Q5M PRN 11/15/22 10/27/23 Omeprazole 40 mg PO BID 11/15/22 10/27/23 methocarbamoL [Robaxin] 500 mg PO TID PRN 11/15/22 10/27/23 Isosorbide Mononitrate ER [Imdur] 60 mg PO DAILY 12/08/22 10/27/23 Insulin Detemir [Levemir Flextouch 45 units SQ HS 02/21/23 10/27/23 Pen] Multivitamins, Thera [Multivitamin 1 tab PO DAILY 02/28/23 10/27/23 (formulary)] Dulaglutide [Trulicity] 4.5 mg SQ TH 10/09/23 10/27/23 Famotidine [Pepcid] 20 mg PO BID 10/09/23 10/27/23 Fluticasone Nasal [place] [Flonase 1 spray EA NOSTRIL DAILY 10/09/23 10/27/23 Nasal [place]] Fluticasone Propion/Salmeterol 1 puff INHALATION RT-BID 10/09/23 10/27/23 [Fluticasone-Salmeterol 100-50] Furosemide [Lasix] 20 mg PO DAILY 10/09/23 10/27/23 Insulin Degludec [Tresiba 30 units SQ DIRECTED 10/09/23 10/27/23 Flextouch U-100 Pen] Ipratropium-Albuterol Nebulize 3 ml INHALATION RT-QID PRN 10/09/23 10/27/23 [Duoneb 0.5 mg-3 mg/3 ml Soln] Prochlorperazine [Compazine] 5 mg PO BID PRN 10/09/23 10/27/23 dilTIAZem HCL [dilTIAZem HCL 24Hr 180 mg PO DAILY 10/27/23 10/27/23 ER (Xr)] Previous Rx's Medication Instructions Recorded Ranolazine [Ranexa] 1,000 mg PO BID 30 Days #60 tab 10/11/23 Metoclopramide [Reglan] 10 mg PO TID PRN #15 tab 10/27/23 Allergies Allergy/AdvReac Type Severity Reaction Status Date / Time adhesive Allergy red skin Verified 10/27/23 21:56 trimethobenzamide Allergy Rash/Hives Verified 12/07/23 21:56 [From Tigan] vancomycin Allergy Rash/Hives Verified 10/27/23 21:56 Review of Systems ROS Other: All systems not noted in ROS Statement are negative. <Jean Martinez - Last Filed: 10/27/23 14:21> ROS Other: All systems not noted in ROS Statement are negative. <Mindy Ceron - Last Filed: 10/27/23 23:45> ROS Statement: Those systems with pertinent positive or pertinent negative responses have been documented in the HPI. Past Medical History Past Medical History: Asthma, Chest Pain / Angina, CVA/TIA, Diabetes Mellitus, Deep Vein Thrombosis (DVT), Fibromyalgia, GERD/Reflux, Hyperlipidemia, Hypertension, Liver Disease, Myocardial Infarction (VA) Additional Past Medical History / Comment(s): fibomyalgia, light weakness on left after stroke coming back. mild VA from EKG unknown time. will test for Sleep apnea. has scd at home. recent blood in stools. non alcoholic fatty liver,, diverticulosis. Last Myocardial Infarction Date:: unk History of Any Multi-Drug Resistant Organisms: None Reported, C-DIFF Date of last positivie culture/infection: 2019 MDRO Source:: stool Past Surgical History: Appendectomy, Cholecystectomy, Hysterectomy, Orthopedic Surgery Additional Past Surgical History / Comment(s): left knee replaced. left rotator cuff repair . rt hip stretched bursa. colonoscopies, laproscopic surgery to remove abdominal adhesions, left femur sx Past Anesthesia/Blood Transfusion Reactions: Postoperative Nausea & Vomiting (PONV) Additional Past Anesthesia/Blood Transfusion Reaction / Comment(s): with lap procedure had a hard time waking up. Past Psychological History: Bipolar, Depression Smoking Status: Never smoker Past Alcohol Use History: None Reported Past Drug Use History: Marijuana - Past Family History Mother Family Medical History: Cancer Additional Family Medical History / Comment(s): uterine Father Family Medical History: Cancer Additional Family Medical History / Comment(s): lung <Jean Martinez - Last Filed: 10/27/23 14:21> General Exam <Jean Martinez - Last Filed: 10/27/23 14:21> Limitations: no limitations General appearance: alert, in no apparent distress Head exam: Present: atraumatic, normocephalic, normal inspection Eye exam: Present: normal appearance, PERRL, EOMI. Absent: scleral icterus, conjunctival injection, periorbital swelling ENT exam: Present: normal exam, mucous membranes moist Respiratory exam: Present: normal lung sounds bilaterally. Absent: respiratory distress, wheezes, rales, rhonchi, stridor Cardiovascular Exam: Present: regular rate, normal rhythm, normal heart sounds. Absent: systolic murmur, diastolic murmur, rubs, gallop, clicks GI/Abdominal exam: Present: soft, normal bowel sounds. Absent: distended, tenderness, guarding, rebound, rigid Back exam: Present: normal inspection Neurological exam: Present: alert, oriented X3 Psychiatric exam: Present: normal affect, normal mood Skin exam: Present: warm, dry, intact, normal color. Absent: rash <Mindy Ceron - Last Filed: 10/27/23 23:45> - General Exam Comments Initial Comments: Visual Physical Exam Vital signs reviewed General: Well-appearing, nontoxic, no acute distress. Head: Normocephalic, atraumatic Eyes: PERRLA, EOMI ENT: Airway patent Chest: Nonlabored breathing Skin: No visual rash, normal skin tone Neuro: Alert and oriented 3 Musculoskeletal: No gross abnormalities (Jean Martinez) Course Vital Signs 10/27/23 10/27/23 10/27/23 14:18 17:32 18:00 Temperature 98.2 F Pulse Rate 105 H 94 94 Respiratory 22 16 18 Rate Blood Pressure 180/102 154/72 157/84 O2 Sat by Pulse 98 97 100 Oximetry 10/27/23 10/27/23 10/27/23 19:00 20:00 20:05 Temperature 97.9 F 97.9 F Pulse Rate 80 Respiratory 18 18 Rate Blood Pressure 164/74 180/80 O2 Sat by Pulse 97 97 Oximetry 10/27/23 22:15 Temperature 98.0 F Pulse Rate 84 Respiratory 18 Rate Blood Pressure 176/82 O2 Sat by Pulse 97 Oximetry Medical Decision Making <Jean Martinez - Last Filed: 10/27/23 14:21> - Lab Data Result diagrams: 10/27/23 17:18 10/27/23 17:18 <Mindy Ceron - Last Filed: 10/27/23 23:45> - Medical Decision Making I completed the quick note portion of this chart signed Jean Martinez PA-C (Jean Martinez) Was pt. sent in by a medical professional or institution ([facility], PASSENGER CAR UPHOLSTERER APPRENTICE, urgent care, hospital, or senior care...) When possible be specific @ -No Did you speak to anyone other than the patient for history (EMS, parent, family, police, friend...)? What history was obtained from this source @ -No Did you review nursing and triage notes (agree or disagree)? Why? @ -I reviewed and agree with nursing and triage notes Were old charts reviewed (outside hosp., previous admission, EMS record, old EKG, old radiological studies, urgent care reports/EKG's, senior care records)? Report findings @ -No old charts were reviewed Differential Diagnosis (chest pain, altered mental status, abdominal pain women, abdominal pain men, vaginal bleeding, weakness, fever, dyspnea, syncope, headache, dizziness, GI bleed, back pain, seizure, CVA, palpatations, mental health, musculoskeletal)? @ -Differential Abdominal Pain Women: Appendicitis, Cholecystitis, diverticulosis, ischemic bowel, pancreatitis, hepatitis, UTI, gastroenteritis, AAA, incarcerated hernia, bowel obstruction, constipation, inflammatory bowel, hepatitis, peptic ulcer disease, splenic infarction, perforated viscus, vulvitis, ovarian torsion, PID, kidney stone, placenta abruption, this is not meant to be an all-inclusive list EKG interpreted by me (3pts min.). @ -none X-rays interpreted by me (1pt min.). @ -None done CT interpreted by me (1pt min.). @ -CT abdomen and pelvis shows no evidence of acute process U/S interpreted by me (1pt. min.). @ -None done What testing was considered but not performed or refused? (CT, X-rays, U/S, labs)? Why? @ -None What meds were considered but not given or refused? Why? @ -None Did you discuss the management of the patient with other professionals (p vasquezfessionals i.e. [facility] Nugent, PASSENGER CAR UPHOLSTERER APPRENTICE, lab, RT, psych nurse, social service technician, carbon paper coating supervisor, teacher, police officer crime prevention, shelter case manager)? Give summary @ -No Was smoking cessation discussed for >3mins.? @ -No Was critical care preformed (if so, how long)? @ -No Were there social determinants of health that impacted care today? How? (Homelessness, low income, unemployed, alcoholism, drug addiction, transpor tation, low edu. Level, literacy, decrease access to med. care, prison, rehab)? @ -No Was there de-escalation of care discussed even if they declined (Discuss DNR or withdrawal of care, Hospice)? DNR status @ -No What co-morbidities impacted this encounter? (DM, HTN, Smoking, COPD, CAD, Cancer, CVA, ARF, Chemo, Hep., AIDS, mental health diagnosis, sleep apnea, morbid obesity)? @ -None Was patient admitted / discharged? Hospital course, mention meds given and route, prescriptions, significant lab abnormalities, going to OR and other pertinent info. @ -Discharged. Patient presented to the emergency department with chief complaint of nausea and vomiting with upper abdominal discomfort. Laboratory studies obtained CBC shows WBC 4.9, hemoglobin 13.7, hematocrit 41.7; CMP shows sodium 143, potassium 5.3 which was hemolyzed, lactic acid 2.3 reflex 1.0; UA shows negative nitrate, negative leukocyte esterase; acetone negative, Covid, influenza, RSV negative. CT abdomen and pelvis obtained which shows no evidence of acute process. Patient was given 2 L of normal saline, Zofran, Reglan. Patient states that the Reglan improved her nausea. Patient has not had any episodes of vomiting in the emergency department. Patient given prescription for Reglan. Advised to follow-up with her primary care provider. She understands agreeable with discharge plan. Patient stable at time of discharge. Case discussed with Dr. Reardon. Undiagnosed new problem with uncertain prognosis? @ -No Drug Therapy requiring intensive monitoring for toxicity (Heparin, Nitro, Insulin, Cardizem)? @ -No Were any procedures done? @ -No Diagnosis/symptom? @ -nausea. vomiting Acute, or Chronic, or Acute on Chronic? @ -acute Uncomplicated (without systemic symptoms) or Complicated (systemic symptoms)? @ -uncomplicated Side effects of treatment? @ -No Exacerbation, Progression, or Severe Exacerbation? @ -No Poses a threat to life or bodily function? How? (Chest pain, USA, VA, pneumonia, PE, COPD, DKA, ARF, appy, cholecystitis, CVA, Diverticulitis, Homicidal, Suicidal, threat to staff... and all critical care pts) @ -No (Mindy Ceron) - Lab Data Lab Results 10/27/23 10/27/23 10/27/23 Range/Units 17:18 17:18 17:18 WBC 4.9 (3.8-10.6) k/uL RBC 4.73 (3.80-5.40) m/uL Hgb 13.7 (11.4-16.0) gm/dL Hct 41.7 (34.0-46.0) % MCV 88.2 (80.0-100.0) fL MCH 28.9 (25.0-35.0) pg MCHC 32.8 (31.0-37.0) g/dL RDW 14.6 (11.5-15.5) % Plt Count 259 (150-450) k/uL MPV 7.9 Neutrophils % 58 % Lymphocytes % 34 % Monocytes % 6 % Eosinophils % 1 % Basophils % 0 % Neutrophils # 2.8 (1.3-7.7) k/uL Lymphocytes # 1.7 (1.0-4.8) k/uL Monocytes # 0.3 (0-1.0) k/uL Eosinophils # 0.0 (0-0.7) k/uL Basophils # 0.0 (0-0.2) k/uL Sodium 143 (137-145) mmol/L Potassium 5.3 H (3.5-5.1) mmol/L Chloride 104 (98-107) mmol/L Carbon Dioxide 25 (22-30) mmol/L Anion Gap 14 mmol/L BUN 6 L (7-17) mg/dL Creatinine 0.49 L (0.52-1.04) mg/dL Est GFR (CKD-EPI)AfAm >90 (>60 ml/min/1.73 sqM) Est GFR (CKD-EPI)NonAf >90 (>60 ml/min/1.73 sqM) Glucose 115 H (74-99) mg/dL Lactic Ac Sepsis Rflx Plasma Lactic Acid Rivera 2.3 H* (0.7-2.0) mmol/L Calcium 9.4 (8.4-10.2) mg/dL Total Bilirubin 1.1 (0.2-1.3) mg/dL AST 42 H (14-36) U/L ALT 23 (4-34) U/L Alkaline Phosphatase 176 H (38-126) U/L Total Protein 7.0 (6.3-8.2) g/dL Albumin 4.3 (3.5-5.0) g/dL Lipase 80 (23-300) U/L Urine Color Urine Appearance (Clear) Urine pH (5.0-8.0) Ur Specific [place] (1.001-1.035) Urine Protein (Negative) Urine Glucose (UA) (Negative) Urine Ketones (Negative) Urine Blood (Negative) Urine Nitrite (Negative) Urine Bilirubin (Negative) Urine Urobilinogen (<2.0) mg/dL Ur Leukocyte Esterase (Negative) Acetone, Qual Negative (Negative) Influenza Type A (PCR) (Not Detectd) Influenza Type B (PCR) (Not Detectd) RSV (PCR) (Not Detectd) SARS-CoV-2 (PCR) (Not Detectd) 10/27/23 10/27/23 10/27/23 Range/Units 17:18 18:35 21:00 WBC (3.8-10.6) k/uL RBC (3.80-5.40) m/uL Hgb (11.4-16.0) gm/dL Hct (34.0-46.0) % MCV (80.0-100.0) fL MCH (25.0-35.0) pg MCHC (31.0-37.0) g/dL RDW (11.5-15.5) % Plt Count (150-450) k/uL MPV Neutrophils % % Lymphocytes % % Monocytes % % Eosinophils % % Basophils % % Neutrophils # (1.3-7.7) k/uL Lymphocytes # (1.0-4.8) k/uL Monocytes # (0-1.0) k/uL Eosinophils # (0-0.7) k/uL Basophils # (0-0.2) k/uL Sodium (137-145) mmol/L Potassium (3.5-5.1) mmol/L Chloride (98-107) mmol/L Carbon Dioxide (22-30) mmol/L Anion Gap mmol/L BUN (7-17) mg/dL Creatinine (0.52-1.04) mg/dL Est GFR (CKD-EPI)AfAm (>60 ml/min/1.73 sqM) Est GFR (CKD-EPI)NonAf (>60 ml/min/1.73 sqM) Glucose (74-99) mg/dL Lactic Ac Sepsis Rflx Y Plasma Lactic Acid Rivera (0.7-2.0) mmol/L Calcium (8.4-10.2) mg/dL Total Bilirubin (0.2-1.3) mg/dL AST (14-36) U/L ALT (4-34) U/L Alkaline Phosphatase (38-126) U/L Total Protein (6.3-8.2) g/dL Albumin (3.5-5.0) g/dL Lipase (23-300) U/L Urine Color Light Yellow Urine Appearance Clear (Clear) Urine pH 6.0 (5.0-8.0) Ur Specific [place] 1.010 (1.001-1.035) Urine Protein Negative (Negative) Urine Glucose (UA) Negative (Negative) Urine Ketones 1+ H (Negative) Urine Blood Negative (Negative) Urine Nitrite Negative (Negative) Urine Bilirubin Negative (Negative) Urine Urobilinogen <2.0 (<2.0) mg/dL Ur Leukocyte Esterase Negative (Negative) Acetone, Qual (Negative) Influenza Type A (PCR) Not Detected (Not Detectd) Influenza Type B (PCR) Not Detected (Not Detectd) RSV (PCR) Not Detected (Not Detectd) SARS-CoV-2 (PCR) Not Detected (Not Detectd) 10/27/23 Range/Units 21:00 WBC (3.8-10.6) k/uL RBC (3.80-5.40) m/uL Hgb (11.4-16.0) gm/dL Hct (34.0-46.0) % MCV (80.0-100.0) fL MCH (25.0-35.0) pg MCHC (31.0-37.0) g/dL RDW (11.5-15.5) % Plt Count (150-450) k/uL MPV Neutrophils % % Lymphocytes % % Monocytes % % Eosinophils % % Basophils % % Neutrophils # (1.3-7.7) k/uL Lymphocytes # (1.0-4.8) k/uL Monocytes # (0-1.0) k/uL Eosinophils # (0-0.7) k/uL Basophils # (0-0.2) k/uL Sodium (137-145) mmol/L Potassium (3.5-5.1) mmol/L Chloride (98-107) mmol/L Carbon Dioxide (22-30) mmol/L Anion Gap mmol/L BUN (7-17) mg/dL Creatinine (0.52-1.04) mg/dL Est GFR (CKD-EPI)AfAm (>60 ml/min/1.73 sqM) Est GFR (CKD-EPI)NonAf (>60 ml/min/1.73 sqM) Glucose (74-99) mg/dL Lactic Ac Sepsis Rflx Plasma Lactic Acid Rivera 1.0 (0.7-2.0) mmol/L Calcium (8.4-10.2) mg/dL Total Bilirubin (0.2-1.3) mg/dL AST (14-36) U/L ALT (4-34) U/L Alkaline Phosphatase (38-126) U/L Total Protein (6.3-8.2) g/dL Albumin (3.5-5.0) g/dL Lipase (23-300) U/L Urine Color Urine Appearance (Clear) Urine pH (5.0-8.0) Ur Specific [place] (1.001-1.035) Urine Protein (Negative) Urine Glucose (UA) (Negative) Urine Ketones (Negative) Urine Blood (Negative) Urine Nitrite (Negative) Urine Bilirubin (Negative) Urine Urobilinogen (<2.0) mg/dL Ur Leukocyte Esterase (Negative) Acetone, Qual (Negative) Influenza Type A (PCR) (Not Detectd) Influenza Type B (PCR) (Not Detectd) RSV (PCR) (Not Detectd) SARS-CoV-2 (PCR) (Not Detectd) Disposition <Jean Martinez - Last Filed: 10/27/23 14:21> Is patient prescribed a controlled substance at d/c from ED?: No <Mindy Ceron - Last Filed: 10/27/23 23:45> Clinical Impression: Nausea and vomiting Disposition: HOME SELF-CARE Condition: Stable Instructions (If sedation given, give patient instructions): Acute Nausea and Vomiting (ED) Additional Instructions: Please follow up with your primary care provider. Return to the emergency department for new or worsening symptoms. Prescriptions: Metoclopramide [Reglan] 10 mg PO TID PRN #15 tab PRN Reason: Nausea Referrals: Abby Santiago, NPC [Family Provider] - 1-2 days
[2023-10-27] MEDS ORDERED: ONDANSETRON 4 MG/2 ML VIAL IVP STA (16:43)
[2023-10-27] MEDS ORDERED: SODIUM CHLORIDE 0.9% 2,000 ML IV ONE (16:43)
[2023-10-27 18:21] LABS: Basophils % (A) 0 %; Eosinophils % (A) 1 %; HCT 41.7 % (34.0-46.0); HGB 13.7 gm/dL (11.4-16.0); Lymphocytes # (A) 1.7 k/uL (1.0-4.8); Lymphocytes % (A) 34 %; MCH 28.9 pg (25.0-35.0); MCHC 32.8 g/dL (31.0-37.0); MCV 88.2 fL (80.0-100.0); Mean Platelet Volume 7.9; Monocytes # (A) 0.3 k/uL (0-1.0); Monocytes % (A) 6 %; Neutrophils # (A) 2.8 k/uL (1.3-7.7); Neutrophils % (A) 58 %; Platelet Count 259 k/uL (150-450); RBC 4.73 m/uL (3.80-5.40); RDW 14.6 % (11.5-15.5); WBC 4.9 k/uL (3.8-10.6)
[2023-10-27 18:30] LABS: ALT 23 U/L (4-34); AST 42 U/L (14-36); African American GFR (CKD) >90 (>60 ml/min/1.73 sqM); Albumin 4.3 g/dL (3.5-5.0); Alkaline Phosphatase 176 U/L (38-126); Anion Gap 14 mmol/L; Blood Urea Nitrogen 6 mg/dL (7-17); Calcium 9.4 mg/dL (8.4-10.2); Carbon Dioxide 25 mmol/L (22-30); Chloride 104 mmol/L (98-107); Glucose 115 mg/dL (74-99); Lipase 80 U/L (23-300); Non-African American GFR(CKD) >90 (>60 ml/min/1.73 sqM); Sodium 143 mmol/L (137-145); Total Bilirubin 1.1 mg/dL (0.2-1.3)
[2023-10-27 18:34] LABS: Potassium 5.3 mmol/L (3.5-5.1)
--- NOTE | 2023-10-27 19:52 | CT ---
EXAMINATION TYPE: CT abdomen pelvis w con DATE OF EXAM: 10/27/2023 HISTORY: RLQ abdominal pain x 6 days. States that she has not used the bathroom (void) in [address] DLP: 1947.6mGycm Automated Exposure Control for Dose Reduction was Utilized. CONTRAST: CT scan of the abdomen and pelvis is performed with IV Contrast, patient injected with 100 ml mL of Isovue 300. COMPARISON: 02/28/2023 disease FINDINGS: LUNG BASES: No acute process. LIVER/GB: No significant abnormality is appreciated. PANCREAS: No significant abnormality is seen. SPLEEN: No significant abnormality is seen. ADRENALS: No significant abnormality is seen. KIDNEYS: No significant abnormality is seen. BOWEL: No bowel dilation. No focal inflammatory change. Colonic stool volume is normal. PELVIC VISCERA: Unremarkable. Urinary bladder is not distended. LYMPH NODES: No greater than 1cm abdominal or pelvic lymph nodes are appreciated. OSSEOUS STRUCTURES: No significant abnormality is seen. OTHER: No significant additional abnormality is seen. IMPRESSION: No significant acute finding is seen to account for patient's clinical symptoms.
[2023-10-27] MEDS ORDERED: METOCLOPRAMIDE 5 MG/ML 2 ML VIAL IVP STA (20:38)
[2023-10-27 21:25] LABS: Appearance,Urine Clear (Clear); Color,Urine Light Yellow; Glucose,Urine (UA) Negative (Negative); Protein,Urine Negative (Negative)
[2023-10-27 21:26] LABS: Bilirubin,Urine Negative (Negative); Blood,Urine Negative (Negative); Ketones,Urine 1+ (Negative)
[2023-10-27 21:27] LABS: Leukocyte Esterase,Urine Negative (Negative); Nitrite,Urine Negative (Negative); Urobilinogen,Urine <2.0 mg/dL (<2.0)
[2023-10-27 22:27] VITALS: RESP 18
[2023-10-27 22:49] VITALS: BP 176/82; PULSE 84; TEMP 98
== END 2023-10-27 22:29 | disposition home or self-care (01) ==
LOC: EC 13:44
DX: R11.2 Nausea with vomiting, unspecified (principal); E11.9 Type 2 diabetes mellitus without complications; E78.5 Hyperlipidemia, unspecified; I25.2 Old myocardial infarction; J45.909 Unspecified asthma, uncomplicated; K21.9 Gastro-esophageal reflux disease without esophagitis; I10 Essential (primary) hypertension; F31.9 Bipolar disorder, unspecified; F12.90 Cannabis use, unspecified, uncomplicated; Z79.01 Long term (current) use of anticoagulants; Z79.4 Long term (current) use of insulin; Z79.84 Long term (current) use of oral hypoglycemic drugs; Z79.51 Long term (current) use of inhaled steroids; Z79.899 Other long term (current) drug therapy; Z20.822 Contact with and (suspected) exposure to COVID-19; Z91.09 Other allergy status, other than to drugs and biological substances; Z88.8 Allergy status to other drugs, medicaments and biological substances
CPT/HCPCS: 99284; 96374; 96375; 96361 ×2; 36415; 80053; 82009; 83605; 83690; 85025; 81003; 87636; 74177; J2765; J2405; Q9967

== ENCOUNTER → 2023-11-09 | Outpatient (CLI) | payer MEDICARE, OTHER ==
--- NOTE | 2023-11-10 09:06 | CT ---
EXAMINATION TYPE: CT knee LT wo con CT DLP: 845.0 mGycm, Automated exposure control for dose reduction was used. DATE OF EXAM: 11/09/2023 4:06 PM COMPARISON: None CLINICAL INDICATION:Female, 53 years old with history of S82.842A FX BIMALLEOLAR M25.562 PAIN L KNEE; PH[facility], LEFT KNEE AND ANKLE PAIN. HX OF LEFT FEMUR REPAIR MAY 2023 AND LEFT ANKLE FX MAY 2023. TECHNIQUE: Axial images were obtained of the CT knee LT wo con, Additional coronal and sagittal refor matted images and soft tissue and bone window were obtained for review. 3-D reconstruction was create d on a separate workstation. Contrast used: mL of , (None if empty) Oral contrast used: (None if empty) FINDINGS: Total knee arthroplasty changes to the left knee. There is intramedullary franco also present with prior fracture of the femur with bony remodeling and partial fusion. Similar scattered capsule l althea suspected prior fracture sites of nonosseous fusion. Fixation screws through the franco and fixation hardware around the knee are all intact given streak artifact from fixation hardware. There is no ev idence of acute fracture, subluxation, or dislocation. No significant soft tissue swelling or joint effusion is identified. No focal muscular atrophy or edema is identified. IMPRESSION: Post left knee arthroplasty changes with hardware intact. Additional fixation hardware of the left fe mur which also appears intact. No evidence for acute fracture. There is partial bony osseous fusion a long the fracture site of the prior femur fracture with scattered areas of nonosseous fusion.
--- NOTE | 2023-11-10 09:22 | CT ---
EXAMINATION TYPE: CT ankle LT wo con CT DLP: 845.0 mGycm, Automated exposure control for dose reduction was used. DATE OF EXAM: 11/09/2023 4:06 PM COMPARISON: Extremity radiograph same day. CLINICAL INDICATION:Female, 53 years old with history of S82.842A FX BIMALLEOLAR M25.562 PAIN L KNEE; PHH, LEFT KNEE AND ANKLE PAIN. HX OF LEFT FEMUR REPAIR MAY 2023 AND LEFT ANKLE FX MAY 2023. TECHNIQUE: Axial images were obtained of the CT ankle LT wo con, Additional coronal and sagittal refo rmatted images and soft tissue and bone window were obtained for review. Contrast used: (None if empty) Oral contrast used: (None if empty) FINDINGS: There is diffuse osseous demineralization which limits evaluation fracture. Multifocal oste ophyte formation and joint space narrowing throughout the joints of the foot. Remote fibular head fra cture versus ligament injury with calcification noted. There is no acute fracture visualized. Calcane al plantar spurring and Achilles enthesophyte formation are present. IMPRESSION: Diffuse osseous demineralization without evidence of fracture. 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 Remote injury to the distal fibula versus chronic ligamentous inj ury with calcifications.
== END | disposition home or self-care (01) ==
LOC: RADCTMAIN 15:10
PROVIDERS: ATTEND Orthopaedic Surgery
DX: S82.842A Displaced bimalleolar fracture of left lower leg, initial encounter for closed fracture (principal); M25.562 Pain in left knee; M19.072 Primary osteoarthritis, left ankle and foot

== ENCOUNTER 2023-11-19 01:31 | Observation (INO) | payer MEDICARE, OTHER ==
[2023-11-19] MEDS ORDERED: NITROGLYCERIN SL TABS 0.4 MG TAB SUBLINGUAL STA (01:57)
[2023-11-19] MEDS ORDERED: ONDANSETRON 4 MG/2 ML VIAL IVP STA (01:57)
--- NOTE | 2023-11-19 02:04 | ED ---
General Adult HPI - General Chief complaint: Chest Pain Stated complaint: Chest Pain,SOB Time Seen by Provider: 11/19/23 01:48 Source: patient, RN notes reviewed, old records reviewed Mode of arrival: ambulatory Limitations: no limitations - History of Present Illness Initial comments: Patient is a 53-year-old female presents emergency Department complaining of chest pain. Began approximate 4 hours ago. Describes it as substernal, sharp radiating straight through to her back. Mild nausea with it as well. States this is not normal chest pain for her she has had chest pain the past but usually is left-sided. Denies any radiation to the arms. Denies any numbness or weakness. Denies any lightheadedness. Denies any other acute complaints at this time. Presents for further evaluation at this time. Patient is on blood thinners that she is a history of blood clots. She is compliant with these. Also has a history of hypertension. Denies any history of cardiac stents. Denies any fevers, chills, cough. - Related Data Home Medications Medication Instructions Recorded Confirmed Albuterol Sulfate [Albuterol 2 puff INHALATION RT-Q6H PRN 11/15/22 10/27/23 Sulfate Hfa] Amitriptyline HCl [Elavil] 25 mg PO HS 11/15/22 10/27/23 Apixaban [Eliquis] 5 mg PO BID 11/15/22 10/27/23 Atorvastatin Calcium [Lipitor] 40 mg PO DAILY 11/15/22 10/27/23 Erenumab-Aooe [Aimovig 70 mg SQ QMONTHLY 11/15/22 10/27/23 Autoinjector] Insulin Aspart [NovoLOG Flexpen] 17 units SQ AC-TID 11/15/22 10/27/23 Insulin Aspart [NovoLOG Flexpen] See Protocol SQ AC-TID 11/15/22 10/27/23 Magnesium Oxide 400 mg PO DAILY 11/15/22 10/27/23 Montelukast Sodium [Singulair] 10 mg PO HS 11/15/22 10/27/23 Nitroglycerin Sl Tabs [Nitrostat] 0.4 mg SUBLINGUAL Q5M PRN 11/15/22 10/27/23 Omeprazole 40 mg PO BID 11/15/22 10/27/23 methocarbamoL [Robaxin] 500 mg PO TID PRN 11/15/22 10/27/23 Isosorbide Mononitrate ER [Imdur] 60 mg PO DAILY 12/08/22 10/27/23 Insulin Detemir [Levemir Flextouch 45 units SQ HS 02/21/23 10/27/23 Pen] Multivitamins, Thera [Multivitamin 1 tab PO DAILY 02/28/23 10/27/23 (formulary)] Dulaglutide [Trulicity] 4.5 mg SQ TH 10/09/23 10/27/23 Famotidine [Pepcid] 20 mg PO BID 10/09/23 10/27/23 Fluticasone Nasal Barre [Flonase 1 spray EA NOSTRIL DAILY 10/09/23 10/27/23 Nasal Barre] Fluticasone Propion/Salmeterol 1 puff INHALATION RT-BID 10/09/23 10/27/23 [Fluticasone-Salmeterol 100-50] Furosemide [Lasix] 20 mg PO DAILY 10/09/23 10/27/23 Insulin Degludec [Tresiba 30 units SQ DIRECTED 10/09/23 10/27/23 Flextouch U-100 Pen] Ipratropium-Albuterol Nebulize 3 ml INHALATION RT-QID PRN 10/09/23 10/27/23 [Duoneb 0.5 mg-3 mg/3 ml Soln] Prochlorperazine [Compazine] 5 mg PO BID PRN 10/09/23 10/27/23 dilTIAZem HCL [dilTIAZem HCL 24Hr 180 mg PO DAILY 10/27/23 10/27/23 ER (Xr)] Previous Rx's Medication Instructions Recorded Ranolazine [Ranexa] 1,000 mg PO BID 30 Days #60 tab 10/11/23 Metoclopramide [Reglan] 10 mg PO TID PRN #15 tab 10/27/23 Allergies Allergy/AdvReac Type Severity Reaction Status Date / Time adhesive Allergy red skin Verified 11/19/23 01:36 trimethobenzamide Allergy Rash/Hives Verified 11/19/23 01:36 [facility] vancomycin Allergy Rash/Hives Verified 11/19/23 01:36 Review of Systems ROS Statement: Those systems with pertinent positive or pertinent negative responses have been documented in the HPI. Review of Systems: CONST: Denies fever EYES: Denies blurry vision ENT: Denies nasal congestion C/V: Endorses chest pain RESP: Denies shortness of breath GI: Denies abdominal pain : Denies dysuria SKIN: Denies rash. MSK: Denies joint pain. NEURO: Denies headache ROS Other: All systems not noted in ROS Statement are negative. Past Medical History Past Medical History: Asthma, Chest Pain / Angina, CVA/TIA, Diabetes Mellitus, Deep Vein Thrombosis (DVT), Fibromyalgia, GERD/Reflux, Hyperlipidemia, Hy pertension, Liver Disease, Myocardial Infarction (ID) Additional Past Medical History / Comment(s): fibomyalgia, light weakness on left after stroke coming back. mild ID from EKG unknown time. will test for Sleep apnea. has scd at home. recent blood in stools. non alcoholic fatty liver,, diverticulosis. Last Myocardial Infarction Date:: unk History of Any Multi-Drug Resistant Organisms: None Reported, C-DIFF Date of last positivie culture/infection: 2019 MDRO Source:: stool Past Surgical History: Appendectomy, Cholecystectomy, Hysterectomy, Orthopedic Surgery Additional Past Surgical History / Comment(s): left knee replaced. left rotator cuff repair . rt hip stretched bursa. colonoscopies, laproscopic surgery to rem ove abdominal adhesions, left femur sx Past Anesthesia/Blood Transfusion Reactions: Postoperative Nausea & Vomiting (PONV) Additional Past Anesthesia/Blood Transfusion Reaction / Comment(s): with lap procedure had a hard time waking up. Past Psychological History: Bipolar, Depression Smoking Status: Never smoker Past Alcohol Use History: None Reported Past Drug Use History: Marijuana - Past Family History Mother Family Medical History: Cancer Additional Family Medical History / Comment(s): uterine Father Family Medical History: Cancer Additional Family Medical History / Comment(s): lung General Exam - General Exam Comments Initial Comments: General: Appears in mild distress. HEAD: Normal with no signs of head trauma. EYES: PERRLA, EOMI, conjunctiva normal, no discharge. ENT: Hearing grossly intact, normal oropharynx. RESPIRATORY: Clear breath sounds bilaterally. No wheezes, rales, or rhonchi. C/V: Regular rate and rhythm. S1 and S2 auscultated, no edema, peripheral pulses 2+ and intact throughout ABD: Abd is soft, nontender, nondistended EXT: Normal range of motion, no obvious deformity SKIN: No rashes or lesions observed on exposed skin. NEURO: Alert and oriented x 4. Cranial nerves II-XII intact. No focal sensory or strength deficits. Limitations: no limitations Course Vital Signs 11/19/23 11/19/23 11/19/23 01:35 02:48 03:00 Temperature 98.4 F Pulse Rate 90 85 87 Respiratory 18 18 16 Rate Blood Pressure 166/89 143/60 125/71 O2 Sat by Pulse 100 96 92 L Oximetry 11/19/23 04:00 Temperature Pulse Rate 95 Respiratory 16 Rate Blood Pressure 131/72 O2 Sat by Pulse 96 Oximetry Medical Decision Making - Medical Decision Making Was pt. sent in by a medical professional or institution ([facility], [facility], urgent care, hospital, or fci...) When possible be specific @ -No Did you speak to anyone other than the patient for history (EMS, parent, family, police, friend...)? What history was obtained from this source @ -No Did you review nursing and triage notes (agree or disagree)? Why? @ -I reviewed and agree with nursing and triage notes Were old charts reviewed (outside hosp., previous admission, EMS record, old EKG, old radiological studies, urgent care reports/EKG's, fci records)? Report findings @ -Charts reviewed Differential Diagnosis (chest pain, altered mental status, abdominal pain women, abdominal pain men, vaginal bleeding, weakness, fever, dyspnea, syncope, headache, dizziness, GI bleed, back pain, seizure, CVA, palpatations, mental health, musculoskeletal)? @ -Differential Chest Pain: Stable Angina, Unstable Angina, STEMI, NSTEMI Aortic Dissection, Pneumothorax, Musculoskeletal, Esophageal Spasm GERD, Cholecystitis, Pancreatitis, Zoster, this is not meant to be an all-inclusive list. EKG interpreted by me (3pts min.). @ -As above X-rays interpreted by me (1pt min.). @ -None done CT interpreted by me (1pt min.). @ -CT negative for any obvious acute aortic injury or dissection. U/S interpreted by me (1pt. min.). @ -None done What testing was considered but not performed or refused? (CT, X-rays, U/S, labs)? Why? @ -None What meds were considered but not given or refused? Why? @ -Initially Considered aspirin but as we are ruling out aortic injury such as dissection we will hold anticoagulation and antiplatelet medications at this time until imaging is completed. Did you discuss the management of the patient with other professionals (professionals i.e. , PA, [facility], lab, RT, psych nurse, social media manager, pathology teacher, teacher, bank operations officer, disease case manager)? Give summary @ - I spoke with the accepting [facility] of [facility] who accepted the patient. Was smoking cessation discussed for >3mins.? @ -No Was critical care preformed (if so, how long)? @ -No Were there social determinants of health that impacted care today? How? (Homelessness, low income, unemployed, alcoholism, drug addiction, transportation, low edu. Level, literacy, decrease access to med. care, [facility], rehab)? @ -No Was there de-escalation of care discussed even if they declined (Discuss DNR or withdrawal of care, Hospice)? DNR status @ -No What co-morbidities impacted this encounter? (DM, HTN, Smoking, COPD, CAD, Cancer, CVA, ARF, Chemo, Hep., AIDS, mental health diagnosis, sleep apnea, morbid obesity)? @ -None Was patient admitted / discharged? Hospital course, mention meds given and route, prescriptions, significant lab abnormalities, going to OR and other pertinent info. @ -Based on the patient's presentation and physical exam, I'm concerned for cardiopulmonary etiology of the patient's current symptoms. Cannot rule out aortic dissection I did recommend that we obtain CT angiogram to evaluate her aorta which she was in agreement with. We'll also obtain cardiopulmonary workup. Patient will be administered nitro glycerin tablets for evaluation for any relief for her symptoms. She was in agreement this plan. She'll also receive a dose of IV Zofran. We'll hold aspirin at this time until aortic study is completed. EKG shows no signs of acute ischemia.CT imaging unremarkable. Patient's labs are also unremarkable including an undetectable troponin. On reevaluation, patient's chest pain is improved following nitro. Was long delay in obtaining CT results. Patient will be admitted for cardiac chest pain rule out. She was in agreement this plan. Cardiology consulted. We'll trend the troponin. Patient given aspirin. Vital signs remained within acceptable limits. Patient was in agreement with this plan. I spoke with the accepting [facility] of [facility] who accepted the patient. Undiagnosed new problem with uncertain prognosis? @ -No Drug Therapy requiring intensive monitoring for toxicity (Heparin, Nitro, Insulin, Cardizem)? @ -No Were any procedures done? @ -No Diagnosis/symptom? @ -Chest pain Acute, or Chronic, or Acute on Chronic? @ -acute Uncomplicated (without systemic symptoms) or Complicated (systemic symptoms)? @ -Complicated Side effects of treatment? @ -none Exacerbation, Progression, or Severe Exacerbation] @ -no Poses a threat to life or bodily function? @ -Yes - Lab Data Result diagrams: 11/19/23 02:20 11/19/23 02:20 Lab Results 11/19/23 11/19/23 11/19/23 Range/Units 02:20 02:20 02:20 WBC 4.9 (3.8-10.6) k/uL RBC 4.48 (3.80-5.40) m/uL Hgb 13.1 (11.4-16.0) gm/dL Hct 38.9 (34.0-46.0) % MCV 87.0 (80.0-100.0) fL MCH 29.2 (25.0-35.0) pg MCHC 33.6 (31.0-37.0) g/dL RDW 13.2 (11.5-15.5) % Plt Count 229 (150-450) k/uL MPV 7.8 Neutrophils % 51 % Lymphocytes % 37 % Monocytes % 7 % Eosinophils % 2 % Basophils % 1 % Neutrophils # 2.5 (1.3-7.7) k/uL Lymphocytes # 1.8 (1.0-4.8) k/uL Monocytes # 0.4 (0-1.0) k/uL Eosinophils # 0.1 (0-0.7) k/uL Basophils # 0.0 (0-0.2) k/uL PT 10.0 (10.0-12.5) sec INR 0.9 (<1.2) APTT 27.4 (22.0-30.0) sec Sodium 141 (137-145) mmol/L Potassium 4.2 (3.5-5.1) mmol/L Chloride 105 (98-107) mmol/L Carbon Dioxide 27 (22-30) mmol/L Anion Gap 9 mmol/L BUN 16 (7-17) mg/dL Creatinine 0.54 (0.52-1.04) mg/dL Est GFR (CKD-EPI)AfAm >90 (>60 ml/min/1.73 sqM) Est GFR (CKD-EPI)NonAf >90 (>60 ml/min/1.73 sqM) Glucose 109 H (74-99) mg/dL Calcium 9.3 (8.4-10.2) mg/dL Magnesium 1.8 (1.6-2.3) mg/dL Total Bilirubin 0.3 (0.2-1.3) mg/dL AST 19 (14-36) U/L ALT 22 (4-34) U/L Alkaline Phosphatase 187 H (38-126) U/L Troponin I (0.000-0.034) ng/mL NT-Pro-B Natriuret Pep <20 pg/mL Total Protein 5.9 L (6.3-8.2) g/dL Albumin 3.6 (3.5-5.0) g/dL Amylase 31 (30-110) U/L Lipase 142 (23-300) U/L Influenza Type A (PCR) (Not Detectd) Influenza Type B (PCR) (Not Detectd) RSV (PCR) (Not Detectd) SARS-CoV-2 (PCR) (Not Detectd) 11/19/23 11/19/23 Range/Units 02:20 02:20 WBC (3.8-10.6) k/uL RBC (3.80-5.40) m/uL Hgb (11.4-16.0) gm/dL Hct (34.0-46.0) % MCV (80.0-100.0) fL MCH (25.0-35.0) pg MCHC (31.0-37.0) g/dL RDW (11.5-15.5) % Plt Count (150-450) k/uL MPV Neutrophils % % Lymphocytes % % Monocytes % % Eosinophils % % Basophils % % Neutrophils # (1.3-7.7) k/uL Lymphocytes # (1.0-4.8) k/uL Monocytes # (0-1.0) k/uL Eosinophils # (0-0.7) k/uL Basophils # (0-0.2) k/uL PT (10.0-12.5) sec INR (<1.2) APTT (22.0-30.0) sec Sodium (137-145) mmol/L Potassium (3.5-5.1) mmol/L Chloride (98-107) mmol/L Carbon Dioxide (22-30) mmol/L Anion Gap mmol/L BUN (7-17) mg/dL Creatinine (0.52-1.04) mg/dL Est GFR (CKD-EPI)AfAm (>60 ml/min/1.73 sqM) Est GFR (CKD-EPI)NonAf (>60 ml/min/1.73 sqM) Glucose (74-99) mg/dL Calcium (8.4-10.2) mg/dL Magnesium (1.6-2.3) mg/dL Total Bilirubin (0.2-1.3) mg/dL AST (14-36) U/L ALT (4-34) U/L Alkaline Phosphatase (38-126) U/L Troponin I <0.012 (0.000-0.034) ng/mL NT-Pro-B Natriuret Pep pg/mL Total Protein (6.3-8.2) g/dL Albumin (3.5-5.0) g/dL Amylase (30-110) U/L Lipase (23-300) U/L Influenza Type A (PCR) Not Detected (Not Detectd) Influenza Type B (PCR) Not Detected (Not Detectd) RSV (PCR) Not Detected (Not Detectd) SARS-CoV-2 (PCR) Not Detected (Not Detectd) - EKG Data -: EKG Interpreted by Me EKG Comments: 12-lead Electrocardiogram Interpretation Note EKG was reviewed and interpreted by myself. 12-lead ECG performed at 0153 is interpreted by me as revealing normal sinus rhythm at a rate of default value beats per minute. 85 axis is normal. MS intervals 136 ms, QRS duration is 94 ms, QTc is 414 ms. Patient has an incomplete right bundle-branch block.. There were no ST or T wave abnormalities to suggest myocardial ischemia or injury. R wave progression across the precordium was satisfactory. By my interpretation this EKG is non-diagnostic for acute ischemia. Disposition Clinical Impression: Chest pain Disposition: ADMITTED IP TO THIS HOSP Condition: Stable Referrals: Brayden Valdovinos DO [Primary Care Provider] - 1-2 days Time of Disposition: 06:15
[2023-11-19 02:38] LABS: Basophils % (A) 1 %; Eosinophils # (A) 0.1 k/uL (0-0.7); Eosinophils % (A) 2 %; HCT 38.9 % (34.0-46.0); HGB 13.1 gm/dL (11.4-16.0); Lymphocytes # (A) 1.8 k/uL (1.0-4.8); Lymphocytes % (A) 37 %; MCH 29.2 pg (25.0-35.0); MCHC 33.6 g/dL (31.0-37.0); Mean Platelet Volume 7.8; Monocytes # (A) 0.4 k/uL (0-1.0); Monocytes % (A) 7 %; Neutrophils # (A) 2.5 k/uL (1.3-7.7); Neutrophils % (A) 51 %; Platelet Count 229 k/uL (150-450); RBC 4.48 m/uL (3.80-5.40); RDW 13.2 % (11.5-15.5); WBC 4.9 k/uL (3.8-10.6)
[2023-11-19 02:45] LABS: INR 0.9 (<1.2); Partial Thromboplastin Time 27.4 sec (22.0-30.0)
[2023-11-19 02:53] LABS: ALT 22 U/L (4-34); AST 19 U/L (14-36); African American GFR (CKD) >90 (>60 ml/min/1.73 sqM); Albumin 3.6 g/dL (3.5-5.0); Alkaline Phosphatase 187 U/L (38-126); Amylase 31 U/L (30-110); Anion Gap 9 mmol/L; Blood Urea Nitrogen 16 mg/dL (7-17); Calcium 9.3 mg/dL (8.4-10.2); Carbon Dioxide 27 mmol/L (22-30); Chloride 105 mmol/L (98-107); Glucose 109 mg/dL (74-99); Lipase 142 U/L (23-300); Magnesium 1.8 mg/dL (1.6-2.3); Non-African American GFR(CKD) >90 (>60 ml/min/1.73 sqM); Potassium 4.2 mmol/L (3.5-5.1); Sodium 141 mmol/L (137-145); Total Bilirubin 0.3 mg/dL (0.2-1.3); Total Protein 5.9 g/dL (6.3-8.2)
[2023-11-19] MEDS: NITROGLYCERIN SL TABS 0.4 MG TAB SUBLINGUAL PRN ×5 (02:55→09:49)
[2023-11-19 03:01] LABS: NT-Pro-B-Type Natriuretic Pept <20 pg/mL
--- NOTE | 2023-11-19 06:35 | CT ---
EXAMINATION TYPE: CT angio thor/abd pel aorta CT DLP: 1894.3 mGycm, Automated exposure control for dose reduction was used. DATE OF EXAM: 11/19/2023 2:59 AM COMPARISON: 10/27/2023. CLINICAL INDICATION:Female, 53 years old with history of chest pain radiation to back; PHH, chest parul n radiation to back. h/o asthma, angina, cva, dm, htn, [place], fibromyalgia, appendectomy, cholecystectom y, hysterectomy, laparoscopic surgery to remove abdominal adhesions, TECHNIQUE: Dissection protocol: Multiple axial CT images of the chest, abdomen, and pelvis were obtai gretta prior and to the administration of IV contrast. 3-D reformats and maximum intensity projection fo rmat were performed on a separate workstation. Contrast used:100 mL of Isovue 300 with IV Contrast, Oral contrast used: FINDINGS: ARTERIAL VASCULATURE: The thoracic aorta is normal in course and caliber. There is no evidence of aor tic dissection, aneurysm or acute aortic injury. Great arch vessels patent and normal in course and c aliber. Scattered minimal atherosclerotic disease. PULMONARY ARTERIAL VASCULATURE: Normal caliber. No evidence of filling defect to suggest pulmonary em bolus. VENOUS SYSTEM: Unremarkable. Lungs/pleura: The lung parenchyma appears unremarkable. Heart: Within normal limits. Mediastinum: No gross evidence of adenopathy. Lower Neck: No significant findings. Abdomen: Liver: Unremarkable. Gallbladder and Bile ducts: The gallbladder is surgically absent. Pancreas: Unremarkable. Spleen: Unremarkable. Adrenal glands: Unremarkable. Kidneys and Ureters: No renal calculi. No hydronephrosis. Bladder: Unremarkable. Reproductive: The uterus is surgically absent. Stomach and Bowel: Unremarkable. No evidence of bowel obstruction. The appendix is surgically absent . Peritoneum: No evidence of pneumoperitoneum, free fluid, or adenopathy. Musculoskeletal: The osseous structures appear intact. Right iliac bone probable bone island. There i s transitional vertebra present at L5. Multilevel disc degeneration with osteophyte formation and fac et joint arthropathy. Left inferior pubic ramus bony island. Lymph nodes: No evidence of lymphadenopathy. Abdominal wall/soft tissues: Fat-containing umbilical hernia which is tiny. IMPRESSION: 1. No evidence for thoracic aortic dissection, aneurysm or significant atherosclerotic disease. 2. No acute intra-abdominal or intrathoracic process.
[2023-11-19] MEDS ORDERED: NALOXONE 0.4 MG/ML 1 ML VIAL IV PRN (06:36)
[2023-11-19] MEDS ORDERED: ONDANSETRON 4 MG/2 ML VIAL IVP PRN (06:36)
[2023-11-19] MEDS ORDERED: ASPIRIN 81 MG PO STA (06:42)
--- NOTE | 2023-11-19 07:58 | P.HPIM ---
History of Present Illness This is a pleasant 53 years old female with past medical history of multiple medical problems as below Patient presents because of chest pain that started last night in the middle of her chest radiating to the back Patient rated as 90/10 felt like squash and pain with no relieving or precipitating factors Is associated with little cough which is dry and shortness of breath No diarrhea but she has one episode of loose bowel movement yesterday and she feels nauseous no abdominal pain or vomiting No urinary complaints She has little headache and dizziness but no weakness or numbness. She takes her on Eliquis at home as well as baby aspirin 81 mg Vitals his stable, Unremarkable labs including CBC, INR, BMP and LFTs In 2 are negative less than 0.012. 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 HEENT: No recent visual problems or hearing problems. Denied any sore throat. CARDIOVASCULAR: No orthopnea, PND, no palpitations, no syncope. PULMONARY: No shortness of breath, no cough, no hemoptysis. GASTROINTESTINAL: No diarrhea, no nausea, no vomiting, no abdominal pain. Normoactive bowel sounds. NEUROLOGICAL: No headaches, no weakness, no numbness. HEMATOLOGICAL: Denies any bleeding or petechiae. GENITOURINARY: Denies any burning micturition, frequency, or urgency. MUSCULOSKELETAL/RHEUMATOLOGICAL: Denies any joint pain, swelling, or any muscle pain. ENDOCRINE: Denies any polyuria or polydipsia. Past Medical History Past Medical History: Asthma, Chest Pain / Angina, CVA/TIA, Diabetes Mellitus, Deep Vein Thrombosis (DVT), Fibromyalgia, GERD/Reflux, Hyperlipidemia, Hypertension, Liver Disease, Myocardial Infarction ([place]) Additional Past Medical History / Comment(s): fibomyalgia, light weakness on left after stroke coming back. mild [place] from EKG unknown time. will test for Sleep apnea. has scd at home. recent blood in stools. non alcoholic fatty liver,, diverticulosis. Last Myocardial Infarction Date:: unk History of Any Multi-Drug Resistant Organisms: None Reported, C-DIFF Date of last positivie culture/infection: 2019 MDRO Source:: stool Past Surgical History: Appendectomy, Cholecystectomy, Hysterectomy, Orthopedic Surgery Additional Past Surgical History / Comment(s): left knee replaced. left rotator cuff repair . rt hip stretched bursa. colonoscopies, laproscopic surgery to remove abdominal adhesions, left femur sx Past Anesthesia/Blood Transfusion Reactions: Postoperative Nausea & Vomiting (PONV) Additional Past Anesthesia/Blood Transfusion Reaction / Comment(s): with lap procedure had a hard time waking up. Past Psychological History: Bipolar, Depression Smoking Status: Never smoker Past Alcohol Use History: None Reported Past Drug Use History: Marijuana - Past Family History Mother Family Medical History: Cancer Additional Family Medical History / Comment(s): uterine Father Family Medical History: Cancer Additional Family Medical History / Comment(s): lung Medications and Allergies Home Medications Medication Instructions Recorded Confirmed Type Albuterol Sulfate [Albuterol 2 puff INHALATION RT-Q6H PRN 11/15/22 10/27/23 History Sulfate Hfa] Amitriptyline HCl [Elavil] 25 mg PO HS 11/15/22 10/27/23 History Apixaban [Eliquis] 5 mg PO BID 11/15/22 10/27/23 History Atorvastatin Calcium [Lipitor] 40 mg PO DAILY 11/15/22 10/27/23 History Erenumab-Aooe [Aimovig 70 mg SQ QMONTHLY 11/15/22 10/27/23 History Autoinjector] Insulin Aspart [NovoLOG Flexpen] 17 units SQ AC-TID 11/15/22 10/27/23 History Insulin Aspart [NovoLOG Flexpen] See Protocol SQ AC-TID 11/15/22 10/27/23 History Magnesium Oxide 400 mg PO DAILY 11/15/22 10/27/23 History Montelukast Sodium [Singulair] 10 mg PO HS 11/15/22 10/27/23 History Nitroglycerin Sl Tabs [Nitrostat] 0.4 mg SUBLINGUAL Q5M PRN 11/15/22 10/27/23 History Omeprazole 40 mg PO BID 11/15/22 10/27/23 History methocarbamoL [Robaxin] 500 mg PO TID PRN 11/15/22 10/27/23 History Isosorbide Mononitrate ER [Imdur] 60 mg PO DAILY 12/08/22 10/27/23 History Insulin Detemir [Levemir Flextouch 45 units SQ HS 02/21/23 10/27/23 History Pen] Multivitamins, Thera [Multivitamin 1 tab PO DAILY 02/28/23 10/27/23 History (formulary)] Dulaglutide [Trulicity] 4.5 mg SQ TH 10/09/23 10/27/23 History Famotidine [Pepcid] 20 mg PO BID 10/09/23 10/27/23 History Fluticasone Nasal [place] [Flonase 1 spray EA NOSTRIL DAILY 10/09/23 10/27/23 History Nasal [place]] Fluticasone Propion/Salmeterol 1 puff INHALATION RT-BID 10/09/23 10/27/23 History [Fluticasone-Salmeterol 100-50] Furosemide [Lasix] 20 mg PO DAILY 10/09/23 10/27/23 History Insulin Degludec [Tresiba 30 units SQ DIRECTED 10/09/23 10/27/23 History Flextouch U-100 Pen] Ipratropium-Albuterol Nebulize 3 ml INHALATION RT-QID PRN 10/09/23 10/27/23 History [Duoneb 0.5 mg-3 mg/3 ml Soln] Prochlorperazine [Compazine] 5 mg PO BID PRN 10/09/23 10/27/23 History Ranolazine [Ranexa] 1,000 mg PO BID 30 Days #60 tab 10/11/23 10/27/23 Rx Metoclopramide [Reglan] 10 mg PO TID PRN #15 tab 10/27/23 Rx dilTIAZem HCL [dilTIAZem HCL 24Hr 180 mg PO DAILY 10/27/23 10/27/23 History ER (Xr)] Allergies Allergy/AdvReac Type Severity Reaction Status Date / Time adhesive Allergy red skin Verified 11/19/23 01:36 trimethobenzamide Allergy Rash/Hives Verified 11/19/23 01:36 [From [facility]] vancomycin Allergy Rash/Hives Verified 11/19/23 01:36 Physical Exam Vitals: Vital Signs Temp Pulse Resp BP Pulse Ox 11/19/23 07:40 89 16 150/73 95 11/19/23 04:00 95 16 131/72 96 11/19/23 03:00 87 16 125/71 92 L 11/19/23 02:48 85 18 143/60 96 11/19/23 01:35 98.4 F 90 18 166/89 100 Intake and Output 11/18/23 11/19/23 11/19/23 22:59 06:59 14:59 Other: Weight 113.398 kg GENERAL: The patient is alert and oriented x3, not in any acute distress. Well developed, well nourished. HEENT: Pupils are round and equally reacting to light. EOMI. No scleral icterus. No conjunctival pallor. Normocephalic, atraumatic. No pharyngeal erythema. No thyromegaly. CARDIOVASCULAR: S1 and S2 present. No murmurs, rubs, or gallops. PULMONARY: Chest is clear to auscultation, no wheezing , no crackles. ABDOMEN: Soft, nontender, nondistended, normoactive bowel sounds. No palpable organomegaly. MUSCULOSKELETAL: No joint swelling or deformity. EXTREMITIES: No cyanosis, clubbing, or pedal edema. NEUROLOGICAL: Gross neurological examination did not reveal any focal deficits. SKIN: No rashes. no petechiae. Results CBC & Chem 7: 11/19/23 02:20 11/19/23 02:20 Labs: Abnormal Lab Results - Last 24 Hours (Table) 11/19/23 Range/Units 02:20 Glucose 109 H (74-99) mg/dL Alkaline Phosphatase 187 H (38-126) U/L Total Protein 5.9 L (6.3-8.2) g/dL Assessment and Plan Assessment: Chest pain, rule out cardiac causes History of DVT on liquids History of asthma History of CVA/TIA Diabetes mellitus Hypertension Hyperlipidemia Obesity with BMI of 40.4 History of GERD Fibromyalgia History of depression and bipolar Plan: We'll do serial troponin Continue with aspirin and blood thinner Eliquis Cardiology consult Labs and medication were reviewed.. Continue same treatment. Continue with symptomatic treatment. Resume home medication. Monitor lytes and vitals. DVT and GI prophylaxis. Further recommendations depends on the clinical course of the patient DVT prophylaxis: Eliquis GI Prophylaxis: Pepcid PT/OT: Pending Prognosis is guarded
[2023-11-19] MEDS ORDERED: NITROGLYCERIN OINT 1 INCH/GM PACKET TOPICAL SCH (08:00)
[2023-11-19] MEDS ORDERED: HEPARIN SODIUM,PORCINE 5,000 UNIT/ML 1 ML VIAL SQ SCH (08:00)
[2023-11-19] MEDS ORDERED: APIXABAN 5 MG TAB PO SCH (09:00)
[2023-11-19] MEDS ORDERED: ASPIRIN 81 MG PO SCH (09:00)
[2023-11-19 12:18] VITALS: RESP 18; TEMP 98.1
--- NOTE | 2023-11-19 13:11 | P.CRDCN ---
History of Present Illness Consult date: 11/19/23 History of present illness: HISTORY OF PRESENTING ILLNESS 52-year-old female with past medical history of paroxysmal atrial fibrillation, DVT, hypertension, hyperlipidemia, type 2 diabetes, CVA and obesity. Patient follows up with Dr. Loera. This time patient presented to the hospital because of substernal chest pressure which was radiating to her back between her shoulder blades. The symptoms started around 8 PM last night and continued for approximately an hour. Symptoms have gotten better since she has been on nitroglycerin patch in the hospital. Patient had somewhat similar presentation in September at that time she had a dobutamine echo stress test in a resting echocardiogram both of them were within normal limits. On admission her labs including BMP, troponins were within normal limits. Her ECG showed normal sinus rhythm with no significant ST-T wave changes. She had thoracic CTA which did not show any evidence of PE or aortic dissection. She is on anticoagulation for history of CVA and paroxysmal atrial fibrillation REVIEW OF SYSTEMS 14 point review of system is negative except what is mentioned above in HPI. PHYSICAL EXAMINATION Vital signs reviewed. Head: Normocephalic. Eyes: Sclerae nonicteric. Neck: Brisk carotid upstroke, no jugular venous distention. Lungs: Clear to auscultation. Heart: Regular rate and rhythm, S1-S2, no S3, no murmur or rub. Abdomen: Soft nontender, positive bowel sounds no organomegaly. Extremities: Swelling in her left lower extremity. Left lower extremity ankle fracture Neuro: Alert, oritented, no focal deficits ASSESSMENT Atypical chest pain. Rule out of acute coronary syndrome Recent stress test from September 2023 was negative. Echocardiogram was within normal limits. CTA thoracic did not show any dissection or PE Paroxysmal atrial fibrillation, currently in sinus rhythm Essential hypertension next and dyslipidemia History of DVT History of CVA Type II Diabetes Morbid obesity PLAN Continue home medication which includes Cardizem 180 mg daily Continue Imdur 60 mg daily continue Ranexa thousand milligrams twice a day Continue Eliquis 5 mg twice a day Atorvastatin 40 mg daily Removal nitro patch. If patient does not have any chest pains, okay to be discharged from cardiac standpoint. outpatient followup Past Medical History Past Medical History: Asthma, Chest Pain / Angina, CVA/TIA, Diabetes Mellitus, Deep Vein Thrombosis (DVT), Fibromyalgia, GERD/Reflux, Hyperlipidemia, Hypertension, Liver Disease, Myocardial Infarction ([place]) Additional Past Medical History / Comment(s): fibomyalgia, light weakness on left after stroke coming back. mild [place] from EKG unknown time. will test for Sleep apnea. has scd at home. recent blood in stools. non alcoholic fatty liver,, diverticulosis. Last Myocardial Infarction Date:: unk History of Any Multi-Drug Resistant Organisms: None Reported, C-DIFF Date of last positivie culture/infection: 2019 MDRO Source:: stool Past Surgical History: Appendectomy, Cholecystectomy, Hysterectomy, Orthopedic Surgery Additional Past Surgical History / Comment(s): left knee replaced. left rotator cuff repair . rt hip stretched bursa. colonoscopies, laproscopic surgery to remove abdominal adhesions, left femur sx Past Anesthesia/Blood Transfusion Reactions: Postoperative Nausea & Vomiting (PONV) Additional Past Anesthesia/Blood Transfusion Reaction / Comment(s): with lap procedure had a hard time waking up. Past Psychological History: Bipolar, Depression Smoking Status: Never smoker Past Alcohol Use History: None Reported Past Drug Use History: Marijuana - Past Family History Mother Family Medical History: Cancer Additional Family Medical History / Comment(s): uterine Father Family Medical History: Cancer Additional Family Medical History / Comment(s): lung Medications and Allergies Home Medications Medication Instructions Recorded Confirmed Type Albuterol Sulfate [Albuterol 2 puff INHALATION RT-Q6H PRN 11/15/22 11/19/23 History Sulfate Hfa] Amitriptyline HCl [Elavil] 25 mg PO HS 11/15/22 11/19/23 History Apixaban [Eliquis] 5 mg PO BID 11/15/22 11/19/23 History Atorvastatin Calcium [Lipitor] 40 mg PO DAILY 11/15/22 11/19/23 History Erenumab-Aooe [Aimovig 70 mg SQ QMONTHLY 11/15/22 11/19/23 History Autoinjector] Insulin Aspart [NovoLOG Flexpen] See Protocol SQ AC-TID 11/15/22 11/19/23 History Magnesium Oxide 400 mg PO DAILY 11/15/22 11/19/23 History Montelukast Sodium [Singulair] 10 mg PO HS 11/15/22 11/19/23 History Nitroglycerin Sl Tabs [Nitrostat] 0.4 mg SUBLINGUAL Q5M PRN 11/15/22 11/19/23 History Omeprazole 40 mg PO BID 11/15/22 11/19/23 History methocarbamoL [Robaxin] 500 mg PO TID PRN 11/15/22 11/19/23 History Isosorbide Mononitrate ER [Imdur] 60 mg PO DAILY 12/08/22 11/19/23 History Insulin Detemir [Levemir Flextouch 40 units SQ DAILY 02/21/23 11/19/23 History Pen] Multivitamins, Thera [Multivitamin 1 tab PO DAILY 02/28/23 11/19/23 History (formulary)] Dulaglutide [Trulicity] 4.5 mg SQ [place] 10/09/23 11/19/23 History Famotidine [Pepcid] 20 mg PO BID 10/09/23 11/19/23 History Fluticasone Nasal [place] [Flonase 1 spray EA NOSTRIL DAILY 10/09/23 11/19/23 History Nasal [place]] Fluticasone Propion/Salmeterol 1 puff INHALATION RT-BID 10/09/23 11/19/23 History [Fluticasone-Salmeterol 100-50] Furosemide [Lasix] 20 mg PO DAILY 10/09/23 11/19/23 History Insulin Degludec [Tresiba 30 units SQ DIRECTED 10/09/23 11/19/23 History Flextouch U-100 Pen] Ipratropium-Albuterol Nebulize 3 ml INHALATION RT-QID PRN 10/09/23 11/19/23 History [Duoneb 0.5 mg-3 mg/3 ml Soln] Prochlorperazine [Compazine] 5 mg PO BID PRN 10/09/23 11/19/23 History Ranolazine [Ranexa] 1,000 mg PO BID 30 Days #60 tab 10/11/23 11/19/23 Rx Metoclopramide [Reglan] 10 mg PO TID PRN #15 tab 10/27/23 11/19/23 Rx dilTIAZem HCL [dilTIAZem HCL 24Hr 180 mg PO DAILY 10/27/23 11/19/23 History ER (Xr)] clonazePAM [KlonoPIN] 1 mg PO BID 11/19/23 11/19/23 History Allergies Allergy/AdvReac Type Severity Reaction Status Date / Time adhesive Allergy red skin Verified 11/19/23 11:45 trimethobenzamide Allergy Rash/Hives Verified 11/19/23 11:45 [From [facility]] vancomycin Allergy Rash/Hives Verified 11/19/23 11:45 Physical Exam Vitals: Vital Signs Temp Pulse Resp BP Pulse Ox 11/19/23 11:55 98.1 F 100 18 145/61 99 11/19/23 09:49 100 20 147/66 99 11/19/23 09:40 97 20 150/63 99 11/19/23 09:00 95 16 152/80 99 11/19/23 07:40 89 16 150/73 95 11/19/23 04:00 95 16 131/72 96 11/19/23 03:00 87 16 125/71 92 L 11/19/23 02:48 85 18 143/60 96 11/19/23 01:35 98.4 F 90 18 166/89 100 Intake and Output 11/18/23 11/19/23 11/19/23 22:59 06:59 14:59 Other: Weight 113.398 kg Results 11/19/23 02:20 11/19/23 02:20 Cardiac Enzymes 11/19/23 11/19/23 11/19/23 Range/Units 02:20 02:20 06:25 AST 19 (14-36) U/L Troponin I <0.012 <0.012 (0.000-0.034) ng/mL 11/19/23 Range/Units 10:43 AST (14-36) U/L Troponin I <0.012 (0.000-0.034) ng/mL Coagulation 11/19/23 Range/Units 02:20 PT 10.0 (10.0-12.5) sec APTT 27.4 (22.0-30.0) sec CBC 11/19/23 Range/Units 02:20 WBC 4.9 (3.8-10.6) k/uL RBC 4.48 (3.80-5.40) m/uL Hgb 13.1 (11.4-16.0) gm/dL Hct 38.9 (34.0-46.0) % Plt Count 229 (150-450) k/uL Comprehensive Metabolic Panel 11/19/23 Range/Units 02:20 Sodium 141 (137-145) mmol/L Potassium 4.2 (3.5-5.1) mmol/L Chloride 105 (98-107) mmol/L Carbon Dioxide 27 (22-30) mmol/L BUN 16 (7-17) mg/dL Creatinine 0.54 (0.52-1.04) mg/dL Glucose 109 H (74-99) mg/dL Calcium 9.3 (8.4-10.2) mg/dL AST 19 (14-36) U/L ALT 22 (4-34) U/L Alkaline Phosphatase 187 H (38-126) U/L Total Protein 5.9 L (6.3-8.2) g/dL Albumin 3.6 (3.5-5.0) g/dL Current Medications Generic Name Dose Route Start Last Admin Trade Name Freq PRN Reason Stop Dose Admin Apixaban 5 mg 11/19/23 09:00 11/19/23 09:37 Apixaban 5 Mg Tab PO 5 mg BID FRANCISCO JAVIER Administration Protocol Aspirin 81 mg 11/19/23 09:00 11/19/23 09:37 Aspirin 81 Mg PO 81 mg DAILY FRANCISCO JAVIER Administration Naloxone HCl 0.2 mg 11/19/23 06:36 Naloxone 0.4 Mg/Ml 1 Ml Vial IV Q2M PRN Opioid Reversal Nitroglycerin 0.4 mg 11/19/23 02:53 11/19/23 09:49 Nitroglycerin Sl Tabs 0.4 Mg Tab SUBLINGUAL 0.4 mg Q5M PRN Administration Chest Pain Nitroglycerin 0.5 inch 11/19/23 08:00 11/19/23 06:47 Nitroglycerin Oint 1 Inch/Gm Packet TOPICAL 0.5 inch Q8HR FRANCISCO JAVIER Administration Ondansetron HCl 4 mg 11/19/23 06:36 Ondansetron 4 Mg/2 Ml Vial IVP Q8HR PRN Nausea And Vomiting Intake and Output 11/18/23 11/19/23 11/19/23 22:59 06:59 14:59 Other: Weight 113.398 kg 11/19/23 02:20 11/19/23 02:20
[2023-11-19] MEDS ORDERED: DILTIAZEM CD 180 MG CAP.ER.24H PO SCH (13:30)
[2023-11-19] MEDS ORDERED: RANOLAZINE 500 MG TAB.ER.12H PO SCH (13:30)
[2023-11-19] MEDS ORDERED: ISOSORBIDE MONONITRATE ER 60 MG TAB.ER.24H PO SCH (14:00)
[2023-11-19 15:16] VITALS: BP 130/61; PULSE 94
[2023-11-19] MEDS ORDERED: ATORVASTATIN 40 MG TAB PO SCH (21:00)
== END 2023-11-19 16:21 | disposition home or self-care (01) ==
LOC: EC 01:31 → 6NMEDSUR 06:36
PROVIDERS: ADMIT Hospitalist; ATTEND Hospitalist
DX: R07.2 Precordial pain (principal); J45.909 Unspecified asthma, uncomplicated; E11.9 Type 2 diabetes mellitus without complications; I10 Essential (primary) hypertension; I48.0 Paroxysmal atrial fibrillation; I45.10 Unspecified right bundle-branch block; K21.9 Gastro-esophageal reflux disease without esophagitis; M79.7 Fibromyalgia; K76.0 Fatty (change of) liver, not elsewhere classified; K57.90 Diverticulosis of intestine, part unspecified, without perforation or abscess without bleeding; I69.954 Hemiplegia and hemiparesis following unspecified cerebrovascular disease affecting left non-dominant side; E78.5 Hyperlipidemia, unspecified; R51.9 Headache, unspecified; F31.9 Bipolar disorder, unspecified; E66.01 Morbid (severe) obesity due to excess calories; Z68.41 Body mass index [BMI] 40.0-44.9, adult; Z11.52 Encounter for screening for COVID-19; Z11.59 Encounter for screening for other viral diseases; Z79.82 Long term (current) use of aspirin; Z79.01 Long term (current) use of anticoagulants; Z79.4 Long term (current) use of insulin; Z79.899 Other long term (current) drug therapy; Z79.85 Long-term (current) use of injectable non-insulin antidiabetic drugs; Z79.51 Long term (current) use of inhaled steroids; Z88.1 Allergy status to other antibiotic agents; Z88.8 Allergy status to other drugs, medicaments and biological substances; Z91.048 Other nonmedicinal substance allergy status; I25.2 Old myocardial infarction; Z90.710 Acquired absence of both cervix and uterus; Z90.49 Acquired absence of other specified parts of digestive tract; Z96.652 Presence of left artificial knee joint; Z86.718 Personal history of other venous thrombosis and embolism; Z98.890 Other specified postprocedural states; Z80.1 Family history of malignant neoplasm of trachea, bronchus and lung; Z80.49 Family history of malignant neoplasm of other genital organs
CPT/HCPCS: 96372; 96374; 99285; 36415; 93005; 83880; 80053; 82150; 83690; 83735; 84484; 85025; 85610; 85730; 87636; 71275; 74174; G0378; J1644; J2405; Q9967

== ENCOUNTER 2023-11-28 14:22 | Observation (INO) | payer MEDICARE, OTHER ==
--- NOTE | 2023-11-28 14:36 | ED ---
Chest Pain HPI - General Source: patient, RN notes reviewed Mode of arrival: wheelchair Limitations: no limitations <Jean Martinez - Last Filed: 11/28/23 14:35> - General Source: patient, RN notes reviewed Limitations: no limitations <Tim Dubose - Last Filed: 11/28/23 18:06> - General Chief Complaint: Chest Pain Stated Complaint: CHEST PAINS Time Seen by Provider: 11/28/23 14:35 - History of Present Illness Initial Comments: 53-year-old female presents emergency Department with chief complaint of chest pain. Patient states she's had for while she has a history of A. fib was supposed to have an appointment with her client success director Dr. Loera today that had to be canceled so they advised to come emergency department for evaluation. She also been having diarrhea with a history of C. diff. (Jean Martinez) Patient is a pleasant 53-year-old female presenting to the emergency Department with chest discomfort. Onset of symptoms was around a week ago. Discomfort has been fairly steady. Discomfort does worsen with exertion. Patient has pressure with radiation to the left shoulder. Patient has had constant symptoms since she has been here last time. Patient states she had a normal computed tomography scan done at that time. Patient does get associated dyspnea but also worsens with exertion. Patient has had some nausea. Patient has had diarrhea. Patient has had diarrhea similar to this twice previously associated with C. diff is concerned it could becoming back. (Tim Dubose) - Related Data Home Medications Medication Instructions Recorded Confirmed Albuterol Sulfate [Albuterol 2 puff INHALATION RT-Q6H PRN 11/15/22 11/19/23 Sulfate Hfa] Amitriptyline HCl [Elavil] 25 mg PO HS 11/15/22 11/19/23 Apixaban [Eliquis] 5 mg PO BID 11/15/22 11/19/23 Atorvastatin Calcium [Lipitor] 40 mg PO DAILY 11/15/22 11/19/23 Erenumab-Aooe [Aimovig 70 mg SQ QMONTHLY 11/15/22 11/19/23 Autoinjector] Insulin Aspart [NovoLOG Flexpen] See Protocol SQ AC-TID 11/15/22 11/19/23 Magnesium Oxide 400 mg PO DAILY 11/15/22 11/19/23 Montelukast Sodium [Singulair] 10 mg PO HS 11/15/22 11/19/23 Nitroglycerin Sl Tabs [Nitrostat] 0.4 mg SUBLINGUAL Q5M PRN 11/15/22 11/19/23 Omeprazole 40 mg PO BID 11/15/22 11/19/23 methocarbamoL [Robaxin] 500 mg PO TID PRN 11/15/22 11/19/23 Insulin Detemir [Levemir Flextouch 40 units SQ DAILY 02/21/23 11/19/23 Pen] Multivitamins, Thera [Multivitamin 1 tab PO DAILY 02/28/23 11/19/23 (formulary)] Dulaglutide [Trulicity] 4.5 mg SQ VICTORIA 10/09/23 11/19/23 Famotidine [Pepcid] 20 mg PO BID 10/09/23 11/19/23 Fluticasone Nasal [place] [Flonase 1 spray EA NOSTRIL DAILY 10/09/23 11/19/23 Nasal [place]] Fluticasone Propion/Salmeterol 1 puff INHALATION RT-BID 10/09/23 11/19/23 [Fluticasone-Salmeterol 100-50] Furosemide [Lasix] 20 mg PO DAILY 10/09/23 11/19/23 Insulin Degludec [Tresiba 30 units SQ DIRECTED 10/09/23 11/19/23 Flextouch U-100 Pen] Ipratropium-Albuterol Nebulize 3 ml INHALATION RT-QID PRN 10/09/23 11/19/23 [Duoneb 0.5 mg-3 mg/3 ml Soln] Prochlorperazine [Compazine] 5 mg PO BID PRN 10/09/23 11/19/23 dilTIAZem HCL [dilTIAZem HCL 24Hr 180 mg PO DAILY 10/27/23 11/19/23 ER (Xr)] clonazePAM [KlonoPIN] 1 mg PO BID 11/19/23 11/19/23 Previous Rx's Medication Instructions Recorded Metoclopramide [Reglan] 10 mg PO TID PRN #15 tab 10/27/23 Diltiazem Cd [Cardizem CD] 180 mg PO DAILY #30 cap 11/19/23 Isosorbide Mononitrate ER [Imdur] 60 mg PO DAILY #30 tab 11/19/23 Ranolazine [Ranexa] 1,000 mg PO BID #60 tab 11/19/23 Allergies Allergy/AdvReac Type Severity Reaction Status Date / Time adhesive Allergy red skin Verified 11/28/23 14:34 trimethobenzamide Allergy Rash/Hives Verified 11/28/23 14:34 [From Tigan] vancomycin Allergy Rash/Hives Verified 11/28/23 14:34 Review of Systems ROS Other: All systems not noted in ROS Statement are negative. <Jean Martinez - Last Filed: 11/28/23 14:35> ROS Other: All systems not noted in ROS Statement are negative. Constitutional: Denies: fever Eyes: Denies: eye pain ENT: Denies: ear pain Respiratory: Reports: as per HPI Cardiovascular: Reports: as per HPI, chest pain Endocrine: Denies: fatigue Gastrointestinal: Denies: abdominal pain Genitourinary: Denies: dysuria Musculoskeletal: Denies: back pain Skin: Denies: rash Neurological: Denies: weakness <Tim Dubose - Last Filed: 11/28/23 18:06> ROS Statement: Those systems with pertinent positive or pertinent negative responses have been documented in the HPI. EKG Findings - EKG Results: EKG: interpreted by ERMBraulio (Left axis), sinus rhythm, normal QRS, normal ST/T EKG shows: tachycardia <Tim Dubose - Last Filed: 11/28/23 18:06> Past Medical History Past Medical History: Asthma, Chest Pain / Angina, CVA/TIA, Diabetes Mellitus, Deep Vein Thrombosis (DVT), Fibromyalgia, GERD/Reflux, Hyperlipidemia, Hypertension, Liver Disease, Myocardial Infarction ([place]) Additional Past Medical History / Comment(s): fibomyalgia, light weakness on left after stroke coming back. mild [place] from EKG unknown time. will test for Sleep apnea. has scd at home. recent blood in stools. non alcoholic fatty liver,, diverticulosis. Last Myocardial Infarction Date:: unk History of Any Multi-Drug Resistant Organisms: None Reported, C-DIFF Date of last positivie culture/infection: 2019 MDRO Source:: stool Past Surgical History: Appendectomy, Cholecystectomy, Hysterectomy, Orthopedic Surgery Additional Past Surgical History / Comment(s): left knee replaced. left rotator cuff repair . rt hip stretched bursa. colonoscopies, laproscopic surgery to remove abdominal adhesions, left femur sx Past Anesthesia/Blood Transfusion Reactions: Postoperative Nausea & Vomiting (PONV) Additional Past Anesthesia/Blood Transfusion Reaction / Comment(s): with lap procedure had a hard time waking up. Past Psychological History: Bipolar, Depression Smoking Status: Never smoker Past Alcohol Use History: None Reported Past Drug Use History: Marijuana - Past Family History Mother Family Medical History: Cancer Additional Family Medical History / Comment(s): uterine Father Family Medical History: Cancer Additional Family Medical History / Comment(s): lung <Jean Martinez - Last Filed: 11/28/23 14:35> General Exam Limitations: no limitations <Jean Martinez - Last Filed: 11/28/23 14:35> Limitations: no limitations General appearance: alert, in no apparent distress Eye exam: Present: normal appearance Neck exam: Present: normal inspection Respiratory exam: Present: normal lung sounds bilaterally. Absent: chest wall tenderness Cardiovascular Exam: Present: regular rate, normal rhythm Expanded Peripheral pulses: 2+: Radial (R), Radial (L), Posterior Tibialis (R), Posterior Tibialis (L) GI/Abdominal exam: Present: soft. Absent: tenderness Extremities exam: Present: normal inspection. Absent: pedal edema, calf tenderness Neurological exam: Present: alert Psychiatric exam: Present: normal affect, normal mood Skin exam: Present: normal color <Tim Dubose - Last Filed: 11/28/23 18:06> - General Exam Comments Initial Comments: Visual Physical Exam Vital signs reviewed General: Well-appearing, nontoxic, no acute distress. Head: Normocephalic, atraumatic Eyes: PERRLA, EOMI ENT: Airway patent Chest: Nonlabored breathing Skin: No visual rash, normal skin tone Neuro: Alert and oriented 3 Musculoskeletal: No gross abnormalities (Jean Martinez) Course Vital Signs 11/28/23 11/28/23 11/28/23 14:29 15:44 15:49 Temperature 97.8 F Pulse Rate 118 H 98 Pulse Rate [ 80 Procedures Analyst ] Respiratory 18 20 Rate Blood Pressure 148/79 182/96 O2 Sat by Pulse 97 98 Oximetry 11/28/23 11/28/23 11/28/23 16:00 17:00 18:00 Temperature Pulse Rate 85 87 85 Pulse Rate [ Procedures Analyst ] Respiratory 20 20 16 Rate Blood Pressure 175/90 112/65 108/64 O2 Sat by Pulse 98 99 99 Oximetry Chest Pain MDM <Jean Martinez - Last Filed: 11/28/23 14:35> <Tim Dubose - Last Filed: 11/28/23 18:06> - MDM I completed the quick note portion of this chart signed Jean Martinez PA-C (Jean Martinez) Was pt. sent in by a medical professional or institution ([facility] Nugent, WASTEWATER TECHNICIAN, urgent care, hospital, or longterm...) When possible be specific @ -Patient was sent in by cardiology office Did you speak to anyone other than the patient for history (EMS, parent, family, police, friend...)? What history was obtained from this source @ -No Did you review nursing and triage notes (agree or disagree)? Why? @ -I reviewed and agree with nursing and triage notes Were old charts reviewed (outside hosp., previous admission, EMS record, old EKG, old radiological studies, urgent care reports/EKG's, longterm records)? Report findings @ -Previous admission reviewed. Differential Diagnosis (chest pain, altered mental status, abdominal pain women, abdominal pain men, vaginal bleeding, weakness, fever, dyspnea, syncope, headache, dizziness, GI bleed, back pain, seizure, CVA, palpatations, mental health, musculoskeletal)? @ -Differential Chest Pain: Stable Angina, Unstable Angina, STEMI, NSTEMI Aortic Dissection, Pneumothorax, Musculoskeletal, Esophageal Spasm GERD, Cholecystitis, Pancreatitis, Zoster, this is not meant to be an all-inclusive list. EKG interpreted by me (3pts min.). @ -As above X-rays interpreted by me (1pt min.). @ -Chest x-ray shows no acute process CT interpreted by me (1pt min.). @ -None done U/S interpreted by me (1pt. min.). @ -None done What testing was considered but not performed or refused? (CT, X-rays, U/S, labs)? Why? @ -None What meds were considered but not given or refused? Why? @ -None Did you discuss the management of the patient with other professionals (professionals i.e. , BAO, WASTEWATER TECHNICIAN, lab, RT, psych nurse, social work lecturer, intellectual property lawyer, teacher, fourth officer, case operator)? Give summary @ -Case was discussed with practitioner Deepika who will admit covering Dr. Valdovinos Was smoking cessation discussed for >3mins.? @ -No Was critical care preformed (if so, how long)? @ -No Were there social determinants of health that impacted care today? How? (Homelessness, low income, unemployed, alcoholism, drug addiction, transportation, low edu. Level, literacy, decrease access to med. care, [facility], rehab)? @ -No Was there de-escalation of care discussed even if they declined (Discuss DNR or withdrawal of care, Hospice)? DNR status @ -No What co-morbidities impacted this encounter? (DM, HTN, Smoking, COPD, CAD, Cancer, CVA, ARF, Chemo, Hep., AIDS, mental health diagnosis, sleep apnea, morbid obesity)? @ -None Was patient admitted / discharged? Hospital course, mention meds given and route, prescriptions, significant lab abnormalities, going to OR and other pertinent info. @ -Patient reevaluated and improved with nitroglycerin. Discomfort has improved from 8 now to 4/10. Patient is updated on results and plan. Patient will be admitted. Admission orders written. Undiagnosed new problem with uncertain prognosis? @ -No Drug Therapy requiring intensive monitoring for toxicity (Heparin, Nitro, Insulin, Cardizem)? @ -No Were any procedures done? @ -No Diagnosis/symptom? @ -chest pain, diarrhea Acute, or Chronic, or Acute on Chronic? @ -Acute, acute Uncomplicated (without systemic symptoms) or Complicated (systemic symptoms)? @ -default Side effects of treatment? @ -No Exacerbation, Progression, or Severe Exacerbation? @ -No Poses a threat to life or bodily function? How? (Chest pain, [place], [place], pneumonia, PE, COPD, DKA, ARF, appy, cholecystitis, CVA, Diverticulitis, Homicidal, Suicidal, threat to staff... and all critical care pts) @ -No (Tim Dubose) Disposition <Jean Martinez - Last Filed: 11/28/23 14:35> Is patient prescribed a controlled substance at d/c from ED?: No Time of Disposition: 18:06 <Tim Dubose - Last Filed: 11/28/23 18:06> Clinical Impression: Chest pain, Diarrhea Disposition: ADMITTED IP TO THIS HOSP Referrals: Brayden Valdovinos DO [Primary Care Provider] - 1-2 days
--- NOTE | 2023-11-28 15:24 | XR ---
EXAMINATION TYPE: XR chest 2V DATE OF EXAM: 11/28/2023 COMPARISON: 10/09/2023 INDICATION: Chest pain nausea TECHNIQUE: Frontal and lateral views of the chest are obtained. FINDINGS: The heart size is normal. The pulmonary vasculature is normal. The lungs are clear. IMPRESSION: 1. No acute pulmonary process.
[2023-11-28 15:54] LABS: Basophils % (A) 0 %; Eosinophils # (A) 0.1 k/uL (0-0.7); Eosinophils % (A) 1 %; HCT 42.5 % (34.0-46.0); HGB 14.2 gm/dL (11.4-16.0); Lymphocytes # (A) 1.3 k/uL (1.0-4.8); Lymphocytes % (A) 26 %; MCH 29.2 pg (25.0-35.0); MCHC 33.4 g/dL (31.0-37.0); MCV 87.4 fL (80.0-100.0); Mean Platelet Volume 7.6; Monocytes # (A) 0.3 k/uL (0-1.0); Monocytes % (A) 6 %; Neutrophils # (A) 3.3 k/uL (1.3-7.7); Neutrophils % (A) 66 %; Platelet Count 231 k/uL (150-450); RBC 4.87 m/uL (3.80-5.40); RDW 13.2 % (11.5-15.5); WBC 5.1 k/uL (3.8-10.6)
[2023-11-28 16:05] LABS: INR 0.9 (<1.2); Partial Thromboplastin Time 27.8 sec (22.0-30.0); Prothrombin Time 10.1 sec (10.0-12.5)
[2023-11-28] MEDS ORDERED: NITROGLYCERIN OINT 1 INCH/GM PACKET TOPICAL STA (16:20)
[2023-11-28] MEDS ORDERED: ASPIRIN 81 MG PO STA (16:20)
[2023-11-28] MEDS ORDERED: SODIUM CHLORIDE 0.9% 1,000 ML IV STA (16:20)
[2023-11-28 16:32] LABS: ALT 30 U/L (4-34); AST 29 U/L (14-36); African American GFR (CKD) >90 (>60 ml/min/1.73 sqM); Alkaline Phosphatase 214 U/L (38-126); Anion Gap 8 mmol/L; Blood Urea Nitrogen 15 mg/dL (7-17); Calcium 9.3 mg/dL (8.4-10.2); Carbon Dioxide 28 mmol/L (22-30); Chloride 105 mmol/L (98-107); Glucose 189 mg/dL (74-99); Lipase 115 U/L (23-300); Magnesium 1.9 mg/dL (1.6-2.3); Non-African American GFR(CKD) 81 (>60 ml/min/1.73 sqM); Potassium 4.2 mmol/L (3.5-5.1); Sodium 141 mmol/L (137-145); Total Bilirubin 0.5 mg/dL (0.2-1.3); Total Protein 6.5 g/dL (6.3-8.2)
[2023-11-28] MEDS: NITROGLYCERIN SL TABS 0.4 MG TAB SUBLINGUAL PRN ×2 (17:24→18:01)
[2023-11-28] MEDS ORDERED: NITROGLYCERIN SL TABS 0.4 MG TAB SUBLINGUAL PRN (18:06)
[2023-11-28] MEDS ORDERED: ONDANSETRON 4 MG/2 ML VIAL IVP STA (20:02)
[2023-11-28] MEDS ORDERED: methocarbamoL 500 MG TAB PO PRN (23:11)
[2023-11-28] MEDS ORDERED: ALBUTEROL NEBULIZED 2.5 MG/3 ML INHALATION PRN (23:11)
[2023-11-28] MEDS ORDERED: IPRATROPIUM-ALBUTEROL 3 ML NEB INHALATION PRN (23:11)
[2023-11-28] MEDS ORDERED: METOCLOPRAMIDE 10 MG TAB PO PRN (23:11)
[2023-11-28] MEDS ORDERED: ACETAMINOPHEN TAB 325 MG TAB PO PRN (23:12)
[2023-11-28] MEDS ORDERED: DEXTROSE 50% SYRINGE 50 ML IVP PRN ×2 (23:14)
[2023-11-28] MEDS: AMITRIPTYLINE HCL 25 MG TAB PO SCH (23:37)
[2023-11-28] MEDS: FAMOTIDINE 20 MG TAB PO SCH (23:37)
[2023-11-28] MEDS: clonazePAM 1 MG TAB PO SCH (23:37)
[2023-11-28] MEDS: NITROGLYCERIN OINT 1 INCH/GM PACKET TOPICAL SCH (23:37)
[2023-11-28] MEDS: MONTELUKAST 10 MG TAB PO SCH (23:37)
[2023-11-28] MEDS: PANTOPRAZOLE 40 MG TABLET PO SCH (23:37)
[2023-11-28] MEDS: RANOLAZINE 500 MG TAB.ER.12H PO SCH (23:37)
[2023-11-28] MEDS: APIXABAN 5 MG TAB PO SCH (23:37)
[2023-11-29] MEDS: NITROGLYCERIN OINT 1 INCH/GM PACKET TOPICAL SCH (05:12)
[2023-11-29 05:54] LABS: Glucose,Whole Blood 196 mg/dL (70-110)
[2023-11-29] MEDS: INSULIN ASPART (NovoLOG) 100 UNIT/ML VIAL SQ SCH ×4 (06:11→21:29)
[2023-11-29] MEDS: PANTOPRAZOLE 40 MG TABLET PO SCH ×2 (06:11→17:37)
[2023-11-29 08:31] VITALS: RESP 16
[2023-11-29] MEDS: RANOLAZINE 500 MG TAB.ER.12H PO SCH ×2 (08:40→20:35)
[2023-11-29] MEDS: FAMOTIDINE 20 MG TAB PO SCH ×2 (08:41→20:35)
[2023-11-29] MEDS: INSULIN DETEMIR (LEVEMIR) 100 UNIT/ML SYR SQ SCH (08:41)
[2023-11-29] MEDS ORDERED: ASPIRIN 325 MG TAB PO SCH (09:00)
[2023-11-29 09:41] LABS: Chol/HDL Ratio 2.96 Ratio; LDL Cholesterol,Calculated 51.9 mg/dL (0.0-131.0)
[2023-11-29] MEDS: FUROSEMIDE 20 MG TAB PO SCH (10:11)
[2023-11-29] MEDS: ATORVASTATIN 40 MG TAB PO SCH ×2 (10:12→12:16)
[2023-11-29] MEDS: clonazePAM 1 MG TAB PO SCH ×2 (10:12→20:35)
[2023-11-29] MEDS: DILTIAZEM CD 180 MG CAP.ER.24H PO SCH (10:13)
[2023-11-29] MEDS: ISOSORBIDE MONONITRATE ER 30 MG TAB.ER.24H PO SCH (10:13)
[2023-11-29] MEDS ORDERED: PROCHLORPERAZINE 5 MG TAB PO PRN (10:48)
[2023-11-29] MEDS ORDERED: ALPRAZolam 0.25 MG TAB PO PRN (11:08)
[2023-11-29] MEDS ORDERED: ATORVASTATIN 80 MG TAB PO STA (11:08)
[2023-11-29] MEDS ORDERED: ALPRAZolam 0.5 MG TAB PO PRN (11:08)
[2023-11-29] MEDS ORDERED: ASPIRIN 325 MG TAB PO STA (11:08)
[2023-11-29] MEDS ORDERED: NITROGLYCERIN SL TABS 0.4 MG TAB SUBLINGUAL PRN (11:08)
--- NOTE | 2023-11-29 11:11 | P.CRDCN ---
History of Present Illness Consult date: 11/29/23 Consult reason: chest pain History of present illness: History of present illness: This is a 53 year old female patient of Dr. Loera with past medical history of COPD, coronary artery disease, paroxysmal atrial fibrillation, hypertension, hyperlipidemia, diabetes mellitus type 2, history of CVA. We have been asked to evaluate the patient for chest pain. Patient had 2 recent hospitalizations. In September she presented for chest pain underwent a dobutamine stress test echocardiogram that was negative and also echocardiogram at that time revealed normal EF with mild MR. Patient returnedon November 19 was evaluated for chest pain, enzymes were negative and patient was cleared for discharge with outpatient follow-up. Patient states that she had an appointment today with Fatoumata Pierre NP, but she was sick and patient was advised to go to the hospital for further evaluation. Patient states that she developed pain in her chest midsternal area that went through to her back. It started last week and it happens at rest. She states it is a knifelike sensation in her left hand was tingling. She also has lightheadedness and dizziness, nausea and heart racing. She states she checked her pulse ox and her heart rate was greater than 137 one occasion. She states she has been taking all of her medications as directed including eliquisand her last dose was on Tuesday evening. Patient states that Nitropaste was applied yesterday and this seemed to help and brought her pain from a #8 down to a #4/10. EKG sinus tachycardia 111 bpm Chest x-ray: no acute process CBC, INR, electrolytes and renal function normal. Glucose 189. Liver function tests are normal. Magnesium 1.9. Troponin negative 3. Lipase 115. Triglycerides 131, cholesterol 118, LDL 51, HDL 39. Home cardiac medications: eliquis 5 mg twice daily, atorvastatin 40 mg daily, Cardizem CD 180 mg daily, Lasix 20 mg daily, Imdur 30 mg daily, magnesium oxide 400 mg daily, Nitrostat as needed, Ranexa 500 mg twice daily. Cardiac catheterization performed 03/2020 revealed minimal CAD. Dobutamine stress test performed 10/11/2023 negative. Echocardiogram performed 10/10/2023 reveals normal EF, mild MR. Review Of Systems: At the time of my exam: CONSTITUTIONAL: Denies fever or chills. CARDIOVASCULAR: Denies chest pain, Denies shortness of breath, no orthopnea, PND or palpitations. RESPIRATORY: Denies cough. GASTROINTESTINAL: Denies abdominal pain, diarrhea, constipation, nausea or vomiting. MUSCULOSKELETAL: Denies myalgias. NEUROLOGIC: Denies numbness, tingling or weakness. ENDOCRINE: Denies fatigue, weight change, polydipsia or polyurina. GENITOURINARY: Denies burning, hematuria or urgency with micturation. HEMATOLOGIC: Denies history of anemia or bleeding. Physical examination: Gen: This is a 53 year old female resting in bed and appears to be comfortable. VS: reviewed HEENT: Head is atraumatic, normocephalic. Pupils equal, round. Sclerae is an icteric. NECK: Supple. No JVD. LUNGS: Clear to auscultation. No wheezes or rhonchi. No intercostal retractions. HEART: Regular rate and rhythm. No murmur. no chest wall tenderness ABDOMEN: Soft No tenderness. EXTREMITIES: No pedal edema. No calf tenderness. NEUROLOGICAL: Patient is awake, alert and oriented x3. Assessment: Chest pain, acute coronary syndrome ruled out History of mild coronary artery disease on cardiac catheterization Paroxysmal atrial fibrillation on eliquis Hypertension Hyperlipidemia Diabetes mellitus type 2 History of CVA Plan: Resume patient's home cardiac medications, hold eliquis Resume Imdur and discontinue Nitropaste No need to repeat echocardiogram as this was done in September Patient will be scheduled for cardiac catheterization tomorrow with Dr. Loera. Further recommendations to follow based upon clinical course Thank you kindly for this consultation. Nurse practitioner note has been reviewed, I agree with documented findings and plan of care. Patient was seen and examined. Past Medical History Past Medical History: Asthma, Chest Pain / Angina, CVA/TIA, Diabetes Mellitus, Deep Vein Thrombosis (DVT), Fibromyalgia, GERD/Reflux, Hyperlipidemia, Hypertension, Liver Disease, Myocardial Infarction ([place]), Pulmonary Embolus ([place]) Additional Past Medical History / Comment(s): fibomyalgia, light weakness on left after stroke coming back. mild [place] from EKG unknown time. will test for Sl eep apnea. has scd at home. recent blood in stools. non alcoholic fatty liver,, diverticulosis. Last Myocardial Infarction Date:: unk History of Any Multi-Drug Resistant Organisms: C-DIFF Date of last positivie culture/infection: 2019 MDRO Source:: stool Past Surgical History: Appendectomy, Cholecystectomy, Hysterectomy, Orthopedic Surgery Additional Past Surgical History / Comment(s): left knee replaced. left rotator cuff repair . rt hip stretched bursa. colonoscopies, laproscopic surgery to remove abdominal adhesions, left femur sx Past Anesthesia/Blood Transfusion Reactions: Postoperative Nausea & Vomiting (PONV) Additional Past Anesthesia/Blood Transfusion Reaction / Comment(s): with lap procedure had a hard time waking up. Past Psychological History: Bipolar, Depression Smoking Status: Never smoker Past Alcohol Use History: None Reported Past Drug Use History: Marijuana Additional Drug Use History / Comment(s): marijuana vape pen. pt aware not to use 24 hrs before procedure. - Past Family History Mother Family Medical History: Cancer Additional Family Medical History / Comment(s): uterine Father Family Medical History: Cancer Additional Family Medical History / Comment(s): lung Medications and Allergies Home Medications Medication Instructions Recorded Confirmed Type Albuterol Sulfate [Albuterol 2 puff INHALATION RT-Q6H PRN 11/15/22 11/28/23 History Sulfate Hfa] Amitriptyline HCl [Elavil] 25 mg PO HS 11/15/22 11/28/23 History Apixaban [Eliquis] 5 mg PO BID 11/15/22 11/28/23 History Atorvastatin Calcium [Lipitor] 40 mg PO DAILY 11/15/22 11/28/23 History Insulin Aspart [NovoLOG Flexpen] See Protocol SQ AC-TID PRN 11/15/22 11/28/23 History Magnesium Oxide 400 mg PO DAILY 11/15/22 11/28/23 History Montelukast Sodium [Singulair] 10 mg PO HS 11/15/22 11/28/23 History Nitroglycerin Sl Tabs [Nitrostat] 0.4 mg SUBLINGUAL Q5M PRN 11/15/22 11/28/23 History Omeprazole 40 mg PO BID 11/15/22 11/28/23 History methocarbamoL [Robaxin] 500 mg PO TID PRN 11/15/22 11/28/23 History Multivitamins, Thera [Multivitamin 1 tab PO DAILY 02/28/23 11/28/23 History (formulary)] Dulaglutide [Trulicity] 4.5 mg SQ VICTORIA 10/09/23 11/28/23 History Famotidine [Pepcid] 20 mg PO BID 10/09/23 11/28/23 History Fluticasone Nasal [place] [Flonase 1 spray EA NOSTRIL DAILY 10/09/23 11/28/23 History Nasal [place]] Fluticasone Propion/Salmeterol 1 puff INHALATION RT-BID 10/09/23 11/28/23 History [Fluticasone-Salmeterol 100-50] Furosemide [Lasix] 20 mg PO DAILY 10/09/23 11/28/23 History Insulin Degludec [Tresiba 40 units SQ DAILY 10/09/23 11/28/23 History Flextouch U-100 Pen] Ipratropium-Albuterol Nebulize 3 ml INHALATION RT-QID PRN 10/09/23 11/28/23 History [Duoneb 0.5 mg-3 mg/3 ml Soln] Prochlorperazine [Compazine] 5 mg PO BID PRN 10/09/23 11/28/23 History Metoclopramide [Reglan] 10 mg PO TID PRN #15 tab 10/27/23 11/28/23 Rx Diltiazem Cd [Cardizem CD] 180 mg PO DAILY #30 cap 11/19/23 11/28/23 Rx clonazePAM [KlonoPIN] 1 mg PO BID 11/19/23 11/28/23 History Isosorbide Mononitrate ER [Imdur] 30 mg PO DAILY 11/28/23 11/28/23 History Ranolazine [Ranexa] 500 mg PO BID 11/28/23 11/28/23 History Allergies Allergy/AdvReac Type Severity Reaction Status Date / Time adhesive Allergy red skin Verified 11/28/23 18:59 trimethobenzamide Allergy Rash/Hives Verified 11/28/23 18:59 [From Tigan] vancomycin Allergy Rash/Hives Verified 11/28/23 18:59 Physical Exam Vitals: Vital Signs Temp Pulse Pulse Pulse Resp BP BP 11/29/23 07:00 97.6 F 85 16 138/78 11/29/23 02:41 98.3 F 86 15 147/72 11/28/23 22:58 97.6 F 88 15 143/78 11/28/23 20:46 84 18 129/63 11/28/23 19:00 84 16 120/69 11/28/23 18:00 85 16 108/64 11/28/23 17:00 87 20 112/65 11/28/23 16:00 85 20 175/90 11/28/23 15:49 80 11/28/23 15:44 98 20 182/96 11/28/23 14:29 97.8 F 118 H 18 148/79 Pulse Ox 11/29/23 07:00 97 11/29/23 02:41 97 11/28/23 22:58 95 11/28/23 20:46 95 11/28/23 19:00 98 11/28/23 18:00 99 11/28/23 17:00 99 11/28/23 16:00 98 11/28/23 15:49 11/28/23 15:44 98 11/28/23 14:29 97 Intake and Output 11/28/23 11/29/23 11/29/23 22:59 06:59 14:59 Other: Voiding Method Toilet # Voids 1 2 Weight 108.862 kg Results 11/28/23 14:35 11/28/23 14:35 Cardiac Enzymes 11/28/23 11/28/23 11/28/23 Range/Units 14:35 14:35 18:30 AST 29 (14-36) U/L Troponin I <0.012 <0.012 (0.000-0.034) ng/mL 11/28/23 Range/Units 21:28 AST (14-36) U/L Troponin I <0.012 (0.000-0.034) ng/mL Coagulation 11/28/23 Range/Units 14:35 PT 10.1 (10.0-12.5) sec APTT 27.8 (22.0-30.0) sec CBC 11/28/23 Range/Units 14:35 WBC 5.1 (3.8-10.6) k/uL RBC 4.87 (3.80-5.40) m/uL Hgb 14.2 (11.4-16.0) gm/dL Hct 42.5 (34.0-46.0) % Plt Count 231 (150-450) k/uL Comprehensive Metabolic Panel 11/28/23 Range/Units 14:35 Sodium 141 (137-145) mmol/L Potassium 4.2 (3.5-5.1) mmol/L Chloride 105 (98-107) mmol/L Carbon Dioxide 28 (22-30) mmol/L BUN 15 (7-17) mg/dL Creatinine 0.83 (0.52-1.04) mg/dL Glucose 189 H (74-99) mg/dL Calcium 9.3 (8.4-10.2) mg/dL AST 29 (14-36) U/L ALT 30 (4-34) U/L Alkaline Phosphatase 214 H (38-126) U/L Total Protein 6.5 (6.3-8.2) g/dL Albumin 4.0 (3.5-5.0) g/dL Current Medications Generic Name Dose Route Start Last Admin Trade Name Freq PRN Reason Stop Dose Admin Acetaminophen 650 mg 11/28/23 23:12 Acetaminophen Tab 325 Mg Tab PO Q6HR PRN Fever and/ or Pain Albuterol/Ipratropium 3 ml 11/28/23 23:11 Ipratropium-Albuterol 3 Ml Neb INHALATION RT-QID PRN Shortness Of Breath Amitriptyline HCl 25 mg 11/28/23 23:15 11/28/23 23:37 Amitriptyline Hcl 25 Mg Tab PO 25 mg HS FRANCISCO JAVIER Administration Apixaban 5 mg 11/28/23 23:15 11/28/23 23:37 Apixaban 5 Mg Tab PO 5 mg BID FRANCISCO JAVIER Administration Protocol Aspirin 325 mg 11/29/23 09:00 Aspirin 325 Mg Tab PO DAILY FRANCISCO JAVIER Clonazepam 1 mg 11/28/23 23:15 11/28/23 23:37 Clonazepam 1 Mg Tab PO 1 mg BID FRANCISCO JAVIER Administration Dextrose/Water 25 ml 11/28/23 23:14 Dextrose 50% Syringe 50 Ml IVP PER PROTOCOL PRN Hypoglycemia Protocol Dextrose/Water 50 ml 11/28/23 23:14 Dextrose 50% Syringe 50 Ml IVP PER PROTOCOL PRN Hypoglycemia Protocol Famotidine 20 mg 11/28/23 23:15 11/28/23 23:37 Famotidine 20 Mg Tab PO 20 mg BID FRANCISCO JAVIER Administration Insulin Aspart 0 unit 11/29/23 07:30 11/29/23 06:11 Insulin Aspart (Novolog) 100 Unit/Ml Vial SQ 3 unit ACHS FRANCISCO JAVIER Administration Protocol Insulin Detemir 40 unit 11/29/23 07:00 Insulin Detemir (Levemir) 100 Unit/Ml Syr SQ DAILY@0700 FRANCISCO JAVIER Methocarbamol 500 mg 11/28/23 23:11 Methocarbamol 500 Mg Tab PO TID PRN MIGRAINES Metoclopramide HCl 10 mg 11/28/23 23:11 Metoclopramide 10 Mg Tab PO TID PRN Nausea Montelukast Sodium 10 mg 11/28/23 23:15 11/28/23 23:37 Montelukast 10 Mg Tab PO 10 mg HS FRANCISCO JAVIER Administration Nitroglycerin 0.4 mg 11/28/23 18:06 Nitroglycerin Sl Tabs 0.4 Mg Tab SUBLINGUAL Q5M PRN Chest Pain Nitroglycerin 1 inch 11/29/23 00:00 11/29/23 05:12 Nitroglycerin Oint 1 Inch/Gm Packet TOPICAL 1 inch Q6HR FRANCISCO JAVIER Administration Pantoprazole Sodium 40 mg 11/28/23 23:15 11/29/23 06:11 Pantoprazole 40 Mg Tablet PO 40 mg AC-BID FRANCISCO JAVIER Administration Ranolazine 500 mg 11/28/23 23:15 11/28/23 23:37 Ranolazine 500 Mg Tab.Er.12h PO 500 mg BID FRANCISCO JAVIER Administration Intake and Output 11/28/23 11/29/23 11/29/23 22:59 06:59 14:59 Other: Voiding Method Toilet # Voids 1 2 Weight 108.862 kg 11/28/23 14:35 11/28/23 14:35
[2023-11-29] MEDS ORDERED: HYDROmorphone 0.5 MG/0.5 ML SYRINGE IVP PRN (12:11)
[2023-11-29 12:39] LABS: Glucose,Whole Blood 209 mg/dL (70-110)
--- NOTE | 2023-11-29 13:02 | HP ---
HISTORY AND PHYSICAL CHIEF COMPLAINT: Chest pain and diarrhea. HISTORY OF PRESENT ILLNESS: This is a 53-year-old woman with a past medical history of multiple medical problems, admitted with chest pain, which was felt in the anterior part of the chest radiating to the back. The patient also had diarrhea for the last 1 week. The patient also has a history of atrial fibrillation. Cardiology has seen the patient, recommended cardiac catheterization. Otherwise, baseline labs are acceptable except elevated alkaline phosphatase and glucose. There is no history of any fever, rigors, or chills. PAST MEDICAL HISTORY: Reviewed include CVA, TIA, diabetes mellitus, and DVT. Rest of the history and rest of the chart is also reviewed. HOME MEDICATIONS: Reviewed, Compazine. Dose and rest of the medication reviewed. ALLERGIES: Reviewed and include adhesives. FAMILY HISTORY: History of uterine cancer. SOCIAL HISTORY: No history of smoking, THC. REVIEW OF SYSTEMS: A 14-point review is negative except as mentioned earlier. PHYSICAL EXAMINATION: VITAL SIGNS: Pulse 88, blood pressure 143/70, respirations 15. HEENT: Conjunctivae normal. NECK: No JVD. CARDIOVASCULAR: S1, S2 muffled. RESPIRATIONS: Breath sounds diminished at the bases. No rhonchi. No crackles. ABDOMEN: Soft. Mild diffuse discomfort on palpation. No guarding. No rigidity. LEGS: No edema. NERVOUS SYSTEM: Nonfocal. SKIN: No ulcer, rash, bleeding. JOINTS: No active deforming arthropathy. LYMPHATICS: No lymph node palpable in neck, axillae or groin. LABORATORY DATA: Reviewed. ASSESSMENT: 1. Chest pain, possible unstable angina. 2. Diarrhea, possible acute diarrheal disease. 3. History of asthma. 4. Diabetes mellitus type 2. 5. Deep vein thrombosis. 6. Gastroesophageal reflux disease. 7. Hypertension. 8. Hyperlipidemia. 9. History of pulmonary embolism. 10.History of C. diff. 11.History of bipolar. 12.Family history of coronary artery disease. RECOMMENDATION AND DISCUSSION: Continue current medications and treatment, otherwise at this time I recommend stool for C. diff, D-dimer, and CT scan of the chest. The D-dimer is positive with contrast. Otherwise, resume the home medications. Closely follow with Cardiology. Possible cardiac cath. Repeat labs. Prognosis guarded because of multiple complex medical issues. Further recommendations to follow. See orders for further details. MMODL / IJN: [id number] /
[2023-11-29] MEDS: HYDROcodone/APAP 5-325MG 1 EACH TAB PO PRN ×2 (13:47→22:07)
[2023-11-29] MEDS: ONDANSETRON 4 MG/2 ML VIAL IVP PRN (13:48)
[2023-11-29] MEDS: APIXABAN 5 MG TAB PO SCH (15:33)
[2023-11-29 17:27] LABS: Glucose,Whole Blood 128 mg/dL (70-110)
--- NOTE | 2023-11-29 17:34 | CT ---
EXAMINATION TYPE: CT chest wo con CT DLP: 499 mGycm, Automated exposure control for dose reduction was used. DATE OF EXAM: 11/29/2023 2:24 PM COMPARISON: None. . CLINICAL INDICATION:Female, 53 years old with history of chest wall pain; PHH, chest wall pain TECHNIQUE: Multiple axial images were obtained through the chest. Sagittal and coronal reformats were created for review. Contrast used: mL of (None if empty) Oral contrast used: (None if empty) FINDINGS: Examination limited by lack of IV contrast. LUNGS/ PLEURA: The lung parenchyma appears unremarkable. AIRWAY: Central airways are patent. LOWER NECK: No significant findings. MEDIASTINUM: No gross evidence of adenopathy. HEART: Normal heart size. Mild coronary artery calcification. Trace pericardial fluid. VASCULATURE: Minimal atherosclerotic calcification along the arch with a conventional 3 vessel branc h pattern.. Ascending aorta is 3.2 CM, descending is 2.5 CM. Aorta is considered normal in size. Pul monary trunk measures 2.9 CM. Pulmonary trunk is normal in size. Vessels otherwise not well assessed without contrast. SOFT TISSUES/LYMPH NODES: Unremarkable soft tissues. No axillary adenopathy. UPPER ABDOMEN: Cholecystectomy clips. Calcification of the upper abdominal aorta and mild calcificati on in the proximal celiac trunk. MUSCULOSKELETAL: No acute osseous abnormality. Mild diffuse degenerative changes. Vertically striated appearance within several thoracic vertebral bodies could be due to underlying hemangiomas. IMPRESSION: No acute chest abnormality demonstrated.
[2023-11-29] MEDS: SYMBICORT 80-4.5 MCG INHALER INHALATION SCH (18:45)
[2023-11-29] MEDS: MONTELUKAST 10 MG TAB PO SCH (20:34)
[2023-11-29] MEDS: AMITRIPTYLINE HCL 25 MG TAB PO SCH (20:35)
[2023-11-29 21:15] LABS: Glucose,Whole Blood 182 mg/dL (70-110)
[2023-11-30] MEDS: ONDANSETRON 4 MG/2 ML VIAL IVP PRN (00:05)
[2023-11-30] MEDS: PANTOPRAZOLE 40 MG TABLET PO SCH (05:14)
[2023-11-30] MEDS ORDERED: ATORVASTATIN 80 MG TAB PO ONE (06:00)
[2023-11-30] MEDS ORDERED: ASPIRIN 325 MG TAB PO ONE (06:00)
[2023-11-30 06:32] LABS: Glucose,Whole Blood 176 mg/dL (70-110)
[2023-11-30] MEDS: INSULIN ASPART (NovoLOG) 100 UNIT/ML VIAL SQ SCH ×2 (06:36→13:27)
[2023-11-30] MEDS ORDERED: HEPARIN SODIUM,PORCINE (1 ML) 2,500 UNIT in SODIUM CHLORIDE 0.9% 250 ML IRRIGATION PRN (07:00)
[2023-11-30] MEDS ORDERED: HEPARIN SODIUM,PORCINE 10,000 UNIT in SODIUM CHLORIDE 0.9% 1,000 ML IRRIGATION PRN (07:00)
[2023-11-30] MEDS: ISOSORBIDE MONONITRATE ER 30 MG TAB.ER.24H PO SCH (08:33)
[2023-11-30] MEDS: RANOLAZINE 500 MG TAB.ER.12H PO SCH (08:33)
[2023-11-30] MEDS: FAMOTIDINE 20 MG TAB PO SCH (08:33)
[2023-11-30] MEDS: DILTIAZEM CD 180 MG CAP.ER.24H PO SCH (08:33)
[2023-11-30] MEDS: SYMBICORT 80-4.5 MCG INHALER INHALATION SCH (08:34)
[2023-11-30] MEDS: clonazePAM 1 MG TAB PO SCH (08:38)
[2023-11-30 08:49] LABS: ALT 25 U/L (8-44); AST 16 U/L (13-35); Albumin 4.1 g/dL (3.8-4.9); Albumin/Globulin Ratio 1.86 Ratio (1.60-3.17); Alkaline Phosphatase 221 U/L (41-126); Basophils # (A) 0.03 X 10*3/uL (0.00-0.10); Basophils % (A) 0.7 %; Blood Urea Nitrogen 14.4 mg/dL (9.0-27.0); Calcium 9.4 mg/dL (8.7-10.3); Carbon Dioxide 24.5 mmol/L (21.6-31.8); Chloride 103 mmol/L (96-109); Eosinophils % (A) 2.3 %; Globulin 2.2 g/dL (1.6-3.3); Glucose 221 mg/dL (70-110); HGB 13.9 g/dL (12.0-15.0); Lymphocytes # (A) 2.05 X 10*3/uL (0.90-5.00); Lymphocytes % (A) 47.5 %; MCH 28.3 pg (27.0-32.0); MCHC 32.3 g/dL (32.0-37.0); MCV 87.4 FL (80.0-97.0); Mean Platelet Volume 10.2 FL (9.5-12.2); Monocytes # (A) 0.33 X 10*3/uL (0.20-1.00); Monocytes % (A) 7.6 %; NRBC Per 100 WBC 0 X 10*3/uL (0.00-0.01); Neutrophils % (A) 41.7 %; Platelet Count 268 X 10*3/uL (140-440); Potassium 4.2 mmol/L (3.5-5.5); RBC 4.92 X 10*6/uL (4.10-5.20); RDW 12.3 % (11.5-14.5); Sodium 140 mmol/L (135-145); Total Bilirubin 0.4 mg/dL (0.3-1.2); Total Protein 6.3 g/dL (6.2-8.2); WBC 4.32 X 10*3/uL (4.50-10.00)
[2023-11-30] MEDS ORDERED: MAGNESIUM OXIDE 400 MG TAB PO SCH (09:00)
[2023-11-30] MEDS ORDERED: ASPIRIN 81 MG PO SCH (09:00)
[2023-11-30] MEDS ORDERED: MULTIVITAMINS, THERA 1 EACH TAB PO SCH (09:00)
[2023-11-30] MEDS ORDERED: FLUTICASONE 50MCG/SPRAY NASAL 16GM EA NOSTRIL SCH (09:00)
[2023-11-30] MEDS ORDERED: IV FLUID CONTINUATION 1,000 ML IV ONE (11:58)
[2023-11-30] MEDS ORDERED: HEPARIN SODIUM,PORCINE 30 ML 30 ML ONE (11:59)
[2023-11-30] MEDS ORDERED: fentaNYL (PF) 50 MCG/ML 2 ML AMP ONE (12:00)
[2023-11-30] MEDS ORDERED: LIDOCAINE 1% INJ 10MG/ML (20 ML MDV) ONE (12:00)
[2023-11-30] MEDS ORDERED: VERAPAMIL 2.5 MG/ML 2 ML AMP ONE (12:05)
[2023-11-30] MEDS ORDERED: fentaNYL (PF) 50 MCG/ML 2 ML AMP IVP ONE (12:15)
[2023-11-30] MEDS ORDERED: LIDOCAINE 1% INJ 10MG/ML (20 ML MDV) SQ ONE (12:20)
[2023-11-30] MEDS: MIDAZOLAM 2 MG/2 ML VIAL IVP ONE ×2 (12:26→12:41)
[2023-11-30] MEDS: VERAPAMIL SYRINGE (5 MG/10 ML) INTRAARTER ONE ×2 (12:40→12:49)
[2023-11-30] MEDS ORDERED: HEPARIN SODIUM 1,000 UN/ML (10ML VL) IV ONE (12:41)
[2023-11-30] MEDS ORDERED: IOPAMIDOL-370 100ML BTL IVP ONE (12:54)
[2023-11-30] MEDS ORDERED: RX INFO: IV CONTRAST WAS GIVEN 1 EACH MISC MISCELLANE PRN (13:02)
--- NOTE | 2023-11-30 13:07 | P.CARDCATH ---
Date of Procedure: 11/30/23 Description of Procedure: Cardiac Catheterization: The patient is a 53-year-old female with a known history of diabetes, hypertension and hyperlipidemia who has been complaining of recurrent chest discomfort, her EKG showed no acute ST segment changes and her troponins were normal but she persisted in having recurrent symptoms. showed no evidence Recommendations were made regarding cardiac catheterization, the risks and the complications were discussed with the patient who is in full understanding and agreement. Procedure Description: Patient was brought to bed laborer in fasting semi-sedated state after receiving Fentanyl and Benadryl achieiving moderate conscious sedated state. Using Xylocaine Anesthesia and modified Seldinger technique, a 6-Nigerien sheath was introduced in the right radial artery . Subsequently, selective coronary angiography was performed using a 5-Nigerien 3.5 bend right Tami and 6-Nigerien Jorge catheter. Multiple views of the coronary artery including hemiaxial views were obtained. The left Tami catheter was used to cross the aortic valve and LVEDP was calculated. Following that, catheter and sheath were removed. Hemostasis was obtained with deployment of vascular band . There was no immediate complication. Patient was returned to room in stable condition. Of note, the patient received a total of 5000. units of intravenous heparin as well as intra-arterial verapamil. Findings: Left main: This is a short sized vessel, bifurcating into LAD and left circumfl ex, left main has no obstructive disease LAD: This is a large size vessel, tapers down in the distal third, gives rise to a large diagonal branch, the LAD and branches have no evidence of obstructive disease Left circumflex: Is a nondominant vessel giving rise to a large obtuse marginal branch that has no evidence of obstructive disease RCA: This is a large dominant vessel, tortuous, bifurcating distally into PDA and PLV, the RCA and its branches have no obstructive disease Left Ventriculogram: Not performed Hemodynamics: There was no gradient across the aortic valve, LVEDP was 12-16 mmHg Conclusion: 1. Normal coronary arteries 2. Right dominance 3. Normal LVEDP Recommendations: I see no evidence of significant obstructive disease to explain her symptoms, I have recommended to continue medical therapy. The findings and the recommendations were discussed with the patient and the family and they were in full understanding and agreement. Duration of sedation is 36 minutes.
[2023-11-30] MEDS ORDERED: SODIUM CHLORIDE 0.9% 1,000 ML IV SCH (13:15)
[2023-11-30 13:28] LABS: Glucose,Whole Blood 142 mg/dL (70-110)
[2023-11-30] MEDS: FUROSEMIDE 20 MG TAB PO SCH (13:28)
[2023-11-30] MEDS: INSULIN DETEMIR (LEVEMIR) 100 UNIT/ML SYR SQ SCH (13:31)
[2023-11-30] MEDS: HYDROcodone/APAP 5-325MG 1 EACH TAB PO PRN (13:31)
[2023-11-30 16:12] VITALS: TEMP 97.5
[2023-11-30 17:40] VITALS: BP 133/80; PULSE 75
--- NOTE | 2023-12-02 06:34 | P.DS ---
Providers Date of admission: 11/28/23 18:08 Expected date of discharge: 11/30/23 Attending physician: Velvet Henderson Consults: 11/28/23 18:07 Consult Physician Urgent Consulting Provider: Darryn Ha Consult Reason/Comments: cp Do you want consulting provider notified?: Yes Primary care physician: Brayden Valdovinos [facility] Course: Final diagnosis Chest pain, unstable angina with negative cardiac catheterization Diarrhea, possible acute diarrheal disease, resolved 9 history of asthma Diabetes mellitus, type II History of DVT Gastroesophageal reflux disease Hypertension Hyperlipidemia History of pulmonary embolism history of C. diff history of bipolar family history of coronary artery disease Obesity with a BMI of 38.7 GI prophylaxis DVT prophylaxis Full code Discharge disposition Patient is being discharged in a stable condition with guarded prognosis to home. Patient will follow-up with Dr. Valdovinos in the outpatient setting upon discharge. Patient is to continue with current medications and outpatient follow-up with cardiology as scheduled. Total time taken is greater than 35 minutes. Hospital course This is a 53-year-old female who was recently admitted with chest pain and being closely monitored. Patient also reports of diarrhea although reports this has resolved and has had no further episodes. Patient was seen and evaluated by cardiology recommending cardiac catheterization which was negative with no stenting done at this time. Patient instructed to continue current medication regimen and outpatient follow-up. Patient has been cleared for discharge per cardiology. Please refer to cardiology for further HPI. Currently no reports of chest pain, shortness of breath, or palpitations. Patient is afebrile. No reports of nausea or vomiting and patient is tolerating diet. Patient will be discharged home today. Guarded prognosis. High risk for readmission this patient has had multiple ER visits and hospitalizations regarding this. Physical exam: Gen: This is a 53-year-old female who is awake, alert and oriented 3, well- developed, well-nourished, obese HEENT: Head is atraumatic, normocephalic. Pupils equal, round. Sclerae is anicteric. NECK: Supple. No JVD. No lymphadenopathy. No thyromegaly. LUNGS: Clear to auscultation. No wheezes or rhonchi. No intercostal retractions. HEART: S1, S2 are muffled ABDOMEN: Soft. obese Bowel sounds are present. No masses. No tenderness. EXTREMITIES: No pedal edema. No calf tenderness. NEUROLOGICAL: Patient is awake, alert and oriented x3. Cranial nerves 2 through 12 are grossly intact. Please refer to medication reconciliation sheet for a list of medications. The impression and plan of care has been dictated by Amber Medellin, Nurse Practitioner as directed. Dr. Santiago MD I have performed a history and examination and MDM of this patient, discussed the same with the dictator, and agree with the dictator's assessment and plan as written ,documented as a scribe. Based on total visit time, I have performed more than 50% of the visit. Patient Condition at Discharge: Stable Plan - Discharge Summary New Discharge Prescriptions: New Aspirin 81 mg PO DAILY #30 tab Acetaminophen Tab [Tylenol] 650 mg PO Q6HR PRN tab PRN Reason: Fever And/ Or Pain Continue methocarbamoL [Robaxin] 500 mg PO TID PRN PRN Reason: MIGRAINES Omeprazole 40 mg PO BID Nitroglycerin Sl Tabs [Nitrostat] 0.4 mg SUBLINGUAL Q5M PRN PRN Reason: Chest Pain Montelukast Sodium [Singulair] 10 mg PO HS Magnesium Oxide 400 mg PO DAILY Atorvastatin Calcium [Lipitor] 40 mg PO DAILY Albuterol Sulfate [Albuterol Sulfate Hfa] 2 puff INHALATION RT-Q6H PRN PRN Reason: Shortness Of Breath Famotidine [Pepcid] 20 mg PO BID Furosemide [Lasix] 20 mg PO DAILY Insulin Degludec [Tresiba Flextouch U-100 Pen] 40 units SQ DAILY Ipratropium-Albuterol Nebulize [Duoneb 0.5 mg-3 mg/3 ml Soln] 3 ml INHALATION RT-QID PRN PRN Reason: Shortness Of Breath Prochlorperazine [Compazine] 5 mg PO BID PRN PRN Reason: Nausea clonazePAM [KlonoPIN] 1 mg PO BID Ranolazine [Ranexa] 500 mg PO BID Insulin Aspart [NovoLOG Flexpen] See Protocol SQ AC-TID PRN PRN Reason: Blood Sugar - High Apixaban [Eliquis] 5 mg PO BID Amitriptyline HCl [Elavil] 25 mg PO HS Multivitamins, Thera [Multivitamin (formulary)] 1 tab PO DAILY Dulaglutide [Trulicity] 4.5 mg SQ VICTORIA Fluticasone Nasal [place] [Flonase Nasal [place]] 1 spray EA NOSTRIL DAILY Fluticasone Propion/Salmeterol [Fluticasone-Salmeterol 100-50] 1 puff INHALATION RT-BID Metoclopramide [Reglan] 10 mg PO TID PRN #15 tab PRN Reason: Nausea Diltiazem Cd [Cardizem CD] 180 mg PO DAILY #30 cap Isosorbide Mononitrate ER [Imdur] 30 mg PO DAILY Discharge Medication List Albuterol Sulfate [Albuterol Sulfate Hfa] 2 puff INHALATION RT-Q6H PRN 11/15/22 [History] Amitriptyline HCl [Elavil] 25 mg PO HS 11/15/22 [History] Apixaban [Eliquis] 5 mg PO BID 11/15/22 [History] Atorvastatin Calcium [Lipitor] 40 mg PO DAILY 11/15/22 [History] Insulin Aspart [NovoLOG Flexpen] See Protocol SQ AC-TID PRN 11/15/22 [History] Magnesium Oxide 400 mg PO DAILY 11/15/22 [History] Montelukast Sodium [Singulair] 10 mg PO HS 11/15/22 [History] Nitroglycerin Sl Tabs [Nitrostat] 0.4 mg SUBLINGUAL Q5M PRN 11/15/22 [History] Omeprazole 40 mg PO BID 11/15/22 [History] methocarbamoL [Robaxin] 500 mg PO TID PRN 11/15/22 [History] Multivitamins, Thera [Multivitamin (formulary)] 1 tab PO DAILY 02/28/23 [History] Dulaglutide [Trulicity] 4.5 mg SQ VICTORIA 10/09/23 [History] Famotidine [Pepcid] 20 mg PO BID 10/09/23 [History] Fluticasone Nasal [place] [Flonase Nasal [place]] 1 spray EA NOSTRIL DAILY 10/09/23 [History] Fluticasone Propion/Salmeterol [Fluticasone-Salmeterol 100-50] 1 puff INHALATION RT-BID 10/09/23 [History] Furosemide [Lasix] 20 mg PO DAILY 10/09/23 [History] Insulin Degludec [Tresiba Flextouch U-100 Pen] 40 units SQ DAILY 10/09/23 [History] Ipratropium-Albuterol Nebulize [Duoneb 0.5 mg-3 mg/3 ml Soln] 3 ml INHALATION RT-QID PRN 10/09/23 [History] Prochlorperazine [Compazine] 5 mg PO BID PRN 10/09/23 [History] Metoclopramide [Reglan] 10 mg PO TID PRN #15 tab 10/27/23 [Rx] Diltiazem Cd [Cardizem CD] 180 mg PO DAILY #30 cap 11/19/23 [Rx] clonazePAM [KlonoPIN] 1 mg PO BID 11/19/23 [History] Isosorbide Mononitrate ER [Imdur] 30 mg PO DAILY 11/28/23 [History] Ranolazine [Ranexa] 500 mg PO BID 11/28/23 [History] Acetaminophen Tab [Tylenol] 650 mg PO Q6HR PRN tab 11/30/23 [Rx] Aspirin 81 mg PO DAILY #30 tab 11/30/23 [Rx] Follow up Appointment(s)/Referral(s): Saleem Loera MD [STAFF PHYSICIAN] - 12/14/23 11:00 am Brayden Valdovinos DO [Primary Care Provider] - 1-2 days Activity/Diet/Wound Care/Special Instructions: Activity Limited until follow-up follow-up with primary care provider on discharge Follow-up with cardiology outpatient in 1-2 weeks Continue taking medications as prescribed Continue tight blood sugar control Discharge Disposition: HOME SELF-CARE
[2023-12-04] MEDS ORDERED: NON FORMULARY DRUG (Dulaglutide [Trulicity] 4.5 MG/0.5 ML Each) SQ SCH (10:48)
== END 2023-11-30 17:40 | disposition home or self-care (01) ==
LOC: EC 14:22 → 6NMEDSUR 18:07 → OBSVTOIN 18:08 → INTOOBSV 18:08 → 6NMEDSUR 21:46 → UNDODISIN 11-30 17:40 → 6NMEDSUR 12-23 02:31
PROVIDERS: ADMIT Hospitalist; ATTEND Hospitalist
DX: I25.110 Atherosclerotic heart disease of native coronary artery with unstable angina pectoris (principal); I48.0 Paroxysmal atrial fibrillation; E11.65 Type 2 diabetes mellitus with hyperglycemia; I34.0 Nonrheumatic mitral (valve) insufficiency; R19.7 Diarrhea, unspecified; J44.9 Chronic obstructive pulmonary disease, unspecified; I10 Essential (primary) hypertension; E78.5 Hyperlipidemia, unspecified; K21.9 Gastro-esophageal reflux disease without esophagitis; K76.0 Fatty (change of) liver, not elsewhere classified; Z68.38 Body mass index [BMI] 38.0-38.9, adult; E66.9 Obesity, unspecified; F31.9 Bipolar disorder, unspecified; Z79.01 Long term (current) use of anticoagulants; Z79.4 Long term (current) use of insulin; Z79.85 Long-term (current) use of injectable non-insulin antidiabetic drugs; Z79.51 Long term (current) use of inhaled steroids; Z79.899 Other long term (current) drug therapy; Z88.1 Allergy status to other antibiotic agents; Z88.8 Allergy status to other drugs, medicaments and biological substances; Z91.048 Other nonmedicinal substance allergy status; Z86.73 Personal history of transient ischemic attack (TIA), and cerebral infarction without residual deficits; Z86.718 Personal history of other venous thrombosis and embolism; Z86.711 Personal history of pulmonary embolism; Z86.19 Personal history of other infectious and parasitic diseases; Z82.49 Family history of ischemic heart disease and other diseases of the circulatory system
CPT/HCPCS: 96376 ×2; 96361 ×3; 96374; 99285; 36415; 94640; 93005; 93458; 85379; 80061; 80053 ×2; 83690; 83735; 84484; 85025 ×2; 85610; 85730; 83036; 71046; 71250; G0378 ×3; C1769 ×2; C1894; J2250; J2405 ×3; J2001; J3010; J1644; Q9967

== ENCOUNTER → 2023-12-15 | Outpatient (CLI) | payer MEDICARE, OTHER ==
--- NOTE | 2023-12-15 15:42 | XR ---
EXAMINATION TYPE: XR femur LT DATE OF EXAM: 12/15/2023 COMPARISON: Knee radiograph 06/21/2013 HISTORY: 53-year-old female M79.605 PAIN LT LEG TECHNIQUE: 2 views FINDINGS: Retrograde intramedullary nail across a chronic healed fracture deformity of the distal femoral shaft and metadiaphysis. Hypertrophic callus and prominent irregularity related to the fracture deformity remains here. No evident hardware loosening. The hip joint appears grossly intact. There is also an u nderlying left total knee arthroplasty. The visualized distal femoral and proximal tibial components of the prosthesis appear adequately seated. The screw tip of the lower most interlocking screw appear s cause a small chronic cortical fracture that may correspond to some of the MCL insertion. IMPRESSION: 1. Retrograde intramedullary nail across the chronic fracture deformity distal femoral shaft. This ap pears to be healed with hypertrophic callus and prominent irregularity relating to the configuration of the fracture. 2. The screw tip of the lower most interlocking screw may be contributing to a small chronic cortical fracture. This site may correspond to some of the MCL insertion.
== END | disposition home or self-care (01) ==
LOC: RADXRMAIN 14:38
PROVIDERS: ATTEND Family Medicine
DX: M79.605 Pain in left leg (principal)

== ENCOUNTER 2023-12-19 03:58 | Observation (INO) | payer MEDICARE, OTHER ==
[2023-12-19] MEDS ORDERED: SODIUM CHLORIDE 0.9% 1,000 ML IV STA (04:19)
--- NOTE | 2023-12-19 04:24 | ED ---
Neuro HPI - General Chief Complaint: Neuro Symptoms/Deficit Stated Complaint: Possible Stroke Time Seen by Provider: 12/19/23 04:16 Source: patient Mode of arrival: wheelchair Limitations: no limitations - History of Present Illness Is the patient presenting with stroke symptoms?: No Last Known Well Date: 12/19/23 Last Known Well Time: : Onset/Timin -: hour(s) Initial Comments: It is a 53-year-old female with a history of stroke in the past requiring TPA with the left sided deficit, patient has had multiple ER visits for small strokes since then. Patient is brought in today with concern for stroke due to speech difficulty. Patient's reports he is leaving for a cord around 1:30 AM and she reported that she was starting did not feel right couldn't specify what was going on she then contacted him around 3 AM and had stuttering unclear speech. She also feels like maybe she is more weak on her left side than usual. - Related Data Home Medications: Home Medications Medication Instructions Recorded Confirmed Albuterol Sulfate [Albuterol 2 puff INHALATION RT-Q6H PRN 11/15/22 12/19/23 Sulfate Hfa] Amitriptyline HCl [Elavil] 25 mg PO HS 11/15/22 12/19/23 Apixaban [Eliquis] 5 mg PO BID 11/15/22 12/19/23 Atorvastatin Calcium [Lipitor] 40 mg PO DAILY 11/15/22 12/19/23 Insulin Aspart [NovoLOG Flexpen] See Protocol SQ AC-TID PRN 11/15/22 12/19/23 Magnesium Oxide 400 mg PO DAILY 11/15/22 12/19/23 Montelukast Sodium [Singulair] 10 mg PO HS 11/15/22 12/19/23 Nitroglycerin Sl Tabs [Nitrostat] 0.4 mg SUBLINGUAL Q5M PRN 11/15/22 12/19/23 Omeprazole 40 mg PO BID 11/15/22 12/19/23 methocarbamoL [Robaxin] 500 mg PO TID PRN 11/15/22 12/19/23 Multivitamins, Thera [Multivitamin 1 tab PO DAILY 02/28/23 12/19/23 (formulary)] Dulaglutide [Trulicity] 4.5 mg SQ VICTORIA 10/09/23 12/19/23 Famotidine [Pepcid] 20 mg PO BID 10/09/23 12/19/23 Fluticasone Nasal [place] [Flonase 1 spray EA NOSTRIL DAILY 10/09/23 12/19/23 Nasal [place]] Fluticasone Propion/Salmeterol 1 puff INHALATION RT-BID 10/09/23 12/19/23 [Fluticasone-Salmeterol 100-50] Furosemide [Lasix] 20 mg PO DAILY 10/09/23 12/19/23 Ipratropium-Albuterol Nebulize 3 ml INHALATION RT-QID PRN 10/09/23 12/19/23 [Duoneb 0.5 mg-3 mg/3 ml Soln] Prochlorperazine [Compazine] 5 mg PO BID PRN 10/09/23 12/19/23 clonazePAM [KlonoPIN] 1 mg PO BID 11/19/23 12/19/23 Ranolazine [Ranexa] 500 mg PO BID 11/28/23 12/19/23 Insulin Detemir [Levemir Flexpen] 40 units SQ DAILY 12/19/23 12/19/23 Isosorbide Mononitrate ER [Imdur] 60 mg PO DAILY 12/19/23 12/19/23 Previous Rx's Medication Instructions Recorded Metoclopramide [Reglan] 10 mg PO TID PRN #15 tab 10/27/23 Diltiazem Cd [Cardizem CD] 180 mg PO DAILY #30 cap 11/19/23 Acetaminophen Tab [Tylenol] 650 mg PO Q6HR PRN tab 11/30/23 Aspirin 81 mg PO DAILY #30 tab 11/30/23 Allergies/Adverse Reactions: Allergies Allergy/AdvReac Type Severity Reaction Status Date / Time adhesive Allergy red skin Verified 12/19/23 07:58 trimethobenzamide Allergy Rash/Hives Verified 12/19/23 07:58 [From Tigan] vancomycin Allergy Rash/Hives Verified 12/19/23 07:58 Review of Systems ROS Statement: Those systems with pertinent positive or pertinent negative responses have been documented in the HPI. ROS Other: All systems not noted in ROS Statement are negative. General Exam Limitations: no limitations General appearance: alert Head exam: Present: atraumatic, normocephalic Eye exam: Present: PERRL ENT exam: Present: mucous membranes moist Neck exam: Present: full ROM Respiratory exam: Absent: respiratory distress Cardiovascular Exam: Present: regular rate, normal rhythm GI/Abdominal exam: Present: soft. Absent: distended Rectal exam: Present: deferred Extremities exam: Present: normal capillary refill. Absent: pedal edema Neurological exam: Present: alert (Patient reported that she could not recall the day or the date however was able to recall her extensive past medical history dates of previous hospitalizations in [facility] prior to hospitalization today), CN II-XII intact (Patient with normal symmetrical facial movement during conversation however when asked to smile only moves half of her face) Skin exam: Present: warm, dry, intact Stroke MDM - Lab Data Result diagrams: 12/19/23 05:28 12/19/23 05:28 Lab Results 12/19/23 12/19/23 12/19/23 Range/Units 05:28 05:28 05:28 WBC 4.0 (3.8-10.6) k/uL RBC 4.58 (3.80-5.40) m/uL Hgb 13.7 (11.4-16.0) gm/dL Hct 40.7 (34.0-46.0) % MCV 89.0 (80.0-100.0) fL MCH 29.9 (25.0-35.0) pg MCHC 33.6 (31.0-37.0) g/dL RDW 12.8 (11.5-15.5) % Plt Count 232 (150-450) k/uL MPV 7.9 Neutrophils % 58 % Lymphocytes % 31 % Monocytes % 6 % Eosinophils % 2 % Basophils % 1 % Neutrophils # 2.3 (1.3-7.7) k/uL Lymphocytes # 1.2 (1.0-4.8) k/uL Monocytes # 0.3 (0-1.0) k/uL Eosinophils # 0.1 (0-0.7) k/uL Basophils # 0.0 (0-0.2) k/uL PT 10.3 (10.0-12.5) sec INR 0.9 (<1.2) APTT 29.6 (22.0-30.0) sec Sodium 141 (137-145) mmol/L Potassium 4.5 (3.5-5.1) mmol/L Chloride 107 (98-107) mmol/L Carbon Dioxide 29 (22-30) mmol/L Anion Gap 5 mmol/L BUN 11 (7-17) mg/dL Creatinine 0.62 (0.52-1.04) mg/dL Est GFR (CKD-EPI)AfAm >90 (>60 ml/min/1.73 sqM) Est GFR (CKD-EPI)NonAf >90 (>60 ml/min/1.73 sqM) Glucose 146 H (74-99) mg/dL Calcium 8.7 (8.4-10.2) mg/dL Total Bilirubin 0.3 (0.2-1.3) mg/dL AST 20 (14-36) U/L ALT 22 (4-34) U/L Alkaline Phosphatase 174 H (38-126) U/L Creatine Kinase 36 (30-135) U/L Troponin I (0.000-0.034) ng/mL Total Protein 6.3 (6.3-8.2) g/dL Albumin 3.8 (3.5-5.0) g/dL 12/19/23 Range/Units 05:28 WBC (3.8-10.6) k/uL RBC (3.80-5.40) m/uL Hgb (11.4-16.0) gm/dL Hct (34.0-46.0) % MCV (80.0-100.0) fL MCH (25.0-35.0) pg MCHC (31.0-37.0) g/dL RDW (11.5-15.5) % Plt Count (150-450) k/uL MPV Neutrophils % % Lymphocytes % % Monocytes % % Eosinophils % % Basophils % % Neutrophils # (1.3-7.7) k/uL Lymphocytes # (1.0-4.8) k/uL Monocytes # (0-1.0) k/uL Eosinophils # (0-0.7) k/uL Basophils # (0-0.2) k/uL PT (10.0-12.5) sec INR (<1.2) APTT (22.0-30.0) sec Sodium (137-145) mmol/L Potassium (3.5-5.1) mmol/L Chloride (98-107) mmol/L Carbon Dioxide (22-30) mmol/L Anion Gap mmol/L BUN (7-17) mg/dL Creatinine (0.52-1.04) mg/dL Est GFR (CKD-EPI)AfAm (>60 ml/min/1.73 sqM) Est GFR (CKD-EPI)NonAf (>60 ml/min/1.73 sqM) Glucose (74-99) mg/dL Calcium (8.4-10.2) mg/dL Total Bilirubin (0.2-1.3) mg/dL AST (14-36) U/L ALT (4-34) U/L Alkaline Phosphatase (38-126) U/L Creatine Kinase (30-135) U/L Troponin I <0.012 (0.000-0.034) ng/mL Total Protein (6.3-8.2) g/dL Albumin (3.5-5.0) g/dL - NIH Stroke Scale 1a. Level of Consciousness: (0) alert 1b. LOC Questions: (0) answers correctly 1c. LOC Commands: (0) performs tasks correctly 2. Best Gaze: (0) normal 3. Visual: (0) no visual loss 4. Facial Palsy: (0) normal symmetrical movement 5a. Motor Arm Left: (1) drift 5b. Motor Arm Right: (0) no drift 6a. Motor Leg Left: (0) no drift 6b. Motor Leg Right: (0) no drift 7. Limb Ataxia: (0) absent 8. Sensory: (0) normal 9. Best Language: (1) mild/moderate aphasia 10. Dysarthria: (0) normal 11. Extinction/Inattention: (0) no abnormality NIH Score total: 2 - Medical Decision Making Was pt. sent in by a medical professional or institution (, PA, [employer] ST[employer]ER, urgent care, hospital, or residential...) When possible be specific @ -No Did you speak to anyone other than the patient for history (EMS, parent, family, police, friend...)? What history was obtained from this source @ - at bedside Did you review nursing and triage notes (agree or disagree)? Why? @ -I reviewed and agree with nursing and triage notes Were old charts reviewed (outside hosp., previous admission, EMS record, old EKG, old radiological studies, urgent care reports/EKG's, residential records)? Report findings @ -Previous hospital admissions and neurology evaluations were reviewed as well as previous MRI Differential Diagnosis (chest pain, altered mental status, abdominal pain women, abdominal pain men, vaginal bleeding, weakness, fever, dyspnea, syncope, headache, dizziness, GI bleed, back pain, seizure, CVA, palpatations, mental health)? @ -Differential Altered Mental Status: Hypoglycemia, DKA, hypercapnia, ETOH, overdose, CO poisoning, trauma, myxedema coma, HTN encephalopathy, infection, encephalitis, psychosis, intercranial hemorrhage, hepatic encephalopathy, meningitis, CVA, this is not meant to be an all-inclusive list EKG interpreted by me (3pts min.). @ -As above X-rays interpreted by me (1pt min.). @ -None done CT interpreted by me (1pt min.). @ -I see no obvious masses or bleeds U/S interpreted by me (1pt. min.). @ -None done What testing was considered but not performed or refused? (CT, X-rays, U/S, labs)? Why? @ -None What meds were considered but not given or refused? Why? @ -TPA considered but not indicated due to low NIH an inconsistency of symptoms Did you discuss the management of the patient with other professionals (professionals i.e. , PA, [employer] ST[employer]ER, lab, RT, psych nurse, social media project manager, product safety test engineer, teacher, marketing and communications officer, wrapper caser)? Give summary @ -Discussed with cone baker machine stroke doctor through [facility] who recommended medical management, on-call neurologist Dr. Spicer Was smoking cessation discussed for >3mins.? @ -No Was critical care preformed (if so, how long)? @ -No Were there social determinants of health that impacted care today? How? (Homelessness, low income, unemployed, alcoholism, drug addiction, transportation, low edu. Level, literacy, decrease access to med. care, usp, rehab)? @ -No Was there de-escalation of care discussed even if they declined (Discuss DNR or withdrawal of care, Hospice)? DNR status @ -No What co-morbidities impacted this encounter? (DM, HTN, Smoking, COPD, CAD, Cancer, CVA, ARF, Chemo, Hep., AIDS, mental health diagnosis, sleep apnea, morbid obesity)? @ -Previous CVA Was patient admitted / discharged? Hospital course, mention meds given and route, prescriptions, significant lab abnormalities, going to OR and other pertinent info. @ The patient was seen and evaluated immediately upon arrival to the emergency department, code stroke was activated due to speech changes and left arm weakness. Upon review of patient's medical record and reevaluation the patient for speech difficulty does not seem consistent seems to be worse when the patient is being evaluated. This is similar to previous presentations. This time I do not feel the patient's exam warrants treatment with TPA. Patient will be treated medically. She was given a dose of aspirin her care was discussed with interventional neurology team as well as on-call neurologist patient to be admitted here for neurology assessment. Undiagnosed new problem with uncertain prognosis? @ -No Drug Therapy requiring intensive monitoring for toxicity (Heparin, Nitro, Insulin, Cardizem)? @ -No Were any procedures done? @ -No Diagnosis/symptom? @ Speech difficulty Acute, or Chronic, or Acute on Chronic? @ Acute - recurrent Uncomplicated (without systemic symptoms) or Complicated (systemic symptoms)? @ -default Side effects of treatment? @ -No Exacerbation, Progression, or Severe Exacerbation? @ -No Poses a threat to life or bodily function? How? (Chest pain, USA, AL, pneumonia, PE, COPD, DKA, ARF, appy, cholecystitis, CVA, Diverticulitis, Homicidal, Suicidal, threat to staff... and all critical care pts) @ -No Past Medical History Past Medical History: Asthma, Chest Pain / Angina, CVA/TIA, Diabetes Mellitus, Deep Vein Thrombosis (DVT), Fibromyalgia, GERD/Reflux, Hyperlipidemia, Hypertension, Liver Disease, Myocardial Infarction (AL), Pulmonary Embolus (PE) Additional Past Medical History / Comment(s): fibomyalgia, light weakness on left after stroke coming back. mild AL from EKG unknown time. will test for Sleep apnea. has scd at home. recent blood in stools. non alcoholic fatty liver,, diverticulosis. Last Myocardial Infarction Date:: unk History of Any Multi-Drug Resistant Organisms: C-DIFF Date of last positivie culture/infection: 2019 MDRO Source:: stool Past Surgical History: Appendectomy, Cholecystectomy, Hysterectomy, Orthopedic Surgery Additional Past Surgical History / Comment(s): left knee replaced. left rotator cuff repair . rt hip stretched bursa. colonoscopies, laproscopic surgery to remove abdominal adhesions, left femur sx Past Anesthesia/Blood Transfusion Reactions: Postoperative Nausea & Vomiting (PONV) Additional Past Anesthesia/Blood Transfusion Reaction / Comment(s): with lap procedure had a hard time waking up. Past Psychological History: Bipolar, Depression Smoking Status: Never smoker Past Alcohol Use History: None Reported Past Drug Use History: Marijuana - Past Family History Mother Family Medical History: Cancer Additional Family Medical History / Comment(s): uterine Father Family Medical History: Cancer Additional Family Medical History / Comment(s): lung Course Vital Signs 12/19/23 12/19/23 12/19/23 04:08 05:00 05:15 Temperature 98 F Pulse Rate 91 80 75 Pulse Rate [ Pulse Oximetery ] Respiratory 18 18 21 Rate Blood Pressure 165/98 145/55 139/69 Blood Pressure [Left Arm Supine] O2 Sat by Pulse 96 96 96 Oximetry 12/19/23 12/19/23 12/19/23 05:30 05:45 06:00 Temperature Pulse Rate 83 74 75 Pulse Rate [ Pulse Oximetery ] Respiratory 18 20 21 Rate Blood Pressure 158/77 152/72 154/83 Blood Pressure [Left Arm Supine] O2 Sat by Pulse 97 97 97 Oximetry 12/19/23 12/19/23 12/19/23 06:15 06:30 06:45 Temperature Pulse Rate 79 79 78 Pulse Rate [ Pulse Oximetery ] Respiratory 23 18 20 Rate Blood Pressure 153/85 160/88 168/82 Blood Pressure [Left Arm Supine] O2 Sat by Pulse 96 98 95 Oximetry 12/19/23 12/19/23 12/19/23 09:00 10:02 13:37 Temperature 98.3 F Pulse Rate 86 89 95 Pulse Rate [ Pulse Oximetery ] Respiratory 20 20 20 Rate Blood Pressure 139/89 126/57 137/68 Blood Pressure [Left Arm Supine] O2 Sat by Pulse 94 L 98 95 Oximetry 12/19/23 12/19/23 12/19/23 15:16 16:00 17:23 Temperature 97.9 F Pulse Rate 81 80 Pulse Rate [ 90 Pulse Oximetery ] Respiratory 20 16 20 Rate Blood Pressure 132/61 131/69 Blood Pressure 130/75 [Left Arm Supine] O2 Sat by Pulse 92 L 95 Oximetry Disposition Clinical Impression: Difficulty with speech, History of stroke Disposition: ADMITTED IP TO THIS HOSP Is patient prescribed a controlled substance at d/c from ED?: No
--- NOTE | 2023-12-19 04:51 | CT ---
EXAM: CT Head Without Intravenous Contrast CLINICAL HISTORY: ITS.REASON CT Reason: Neuro deficit, acute, stroke suspected TECHNIQUE: Axial computed tomography images of the head/brain without intravenous contrast. CTDI is 49.2 mGy and DLP is 1259.6 mGy-cm. This CT exam was performed using one or more of the following dose reduction techniques: automated exposure control, adjustment of the mA and/or kV according to patient size, and/or use of iterative reconstruction technique. COMPARISON: No relevant prior studies available. FINDINGS: Brain: No hemorrhage or mass effect. Ventricles: No hydrocephalus. Bones/joints: Unremarkable. Soft tissues: Unremarkable. Sinuses: No air fluid level. Mastoid air cells: Clear. IMPRESSION: No acute hemorrhage, hydrocephalus, or mass effect.
[2023-12-19 05:44] LABS: Basophils % (A) 1 %; Eosinophils # (A) 0.1 k/uL (0-0.7); Eosinophils % (A) 2 %; HCT 40.7 % (34.0-46.0); HGB 13.7 gm/dL (11.4-16.0); Lymphocytes # (A) 1.2 k/uL (1.0-4.8); Lymphocytes % (A) 31 %; MCH 29.9 pg (25.0-35.0); MCHC 33.6 g/dL (31.0-37.0); Mean Platelet Volume 7.9; Monocytes # (A) 0.3 k/uL (0-1.0); Monocytes % (A) 6 %; Neutrophils # (A) 2.3 k/uL (1.3-7.7); Neutrophils % (A) 58 %; Platelet Count 232 k/uL (150-450); RBC 4.58 m/uL (3.80-5.40); RDW 12.8 % (11.5-15.5)
[2023-12-19 05:52] LABS: INR 0.9 (<1.2); Partial Thromboplastin Time 29.6 sec (22.0-30.0); Prothrombin Time 10.3 sec (10.0-12.5)
[2023-12-19 06:01] LABS: ALT 22 U/L (4-34); AST 20 U/L (14-36); African American GFR (CKD) >90 (>60 ml/min/1.73 sqM); Albumin 3.8 g/dL (3.5-5.0); Alkaline Phosphatase 174 U/L (38-126); Anion Gap 5 mmol/L; Blood Urea Nitrogen 11 mg/dL (7-17); Calcium 8.7 mg/dL (8.4-10.2); Carbon Dioxide 29 mmol/L (22-30); Chloride 107 mmol/L (98-107); Creatine Kinase 36 U/L (30-135); Glucose 146 mg/dL (74-99); Non-African American GFR(CKD) >90 (>60 ml/min/1.73 sqM); Sodium 141 mmol/L (137-145); Total Bilirubin 0.3 mg/dL (0.2-1.3); Total Protein 6.3 g/dL (6.3-8.2)
[2023-12-19 06:07] LABS: Potassium 4.5 mmol/L (3.5-5.1)
[2023-12-19] MEDS ORDERED: ASPIRIN 81 MG PO STA (06:34)
[2023-12-19] MEDS ORDERED: NALOXONE 0.4 MG/ML 1 ML VIAL IV PRN (06:45)
--- NOTE | 2023-12-19 07:34 | XR ---
EXAMINATION TYPE: XR chest 2V DATE OF EXAM: 12/19/2023 COMPARISON: 11/28/2023 HISTORY: Shortness of breath TECHNIQUE: Frontal and lateral views of the chest are obtained. FINDINGS: Scattered senescent parenchymal changes noted. Hyperinflation compatible with COPD. No evidence for infiltrate. No evidence for atelectasis. Heart size is stable. Mediastinal structures are stable and grossly unremarkable. No evidence for hilar prominence. Degenerative changes dorsal spine. IMPRESSION: 1. No evidence for acute pulmonary disease.
[2023-12-19] MEDS ORDERED: METOCLOPRAMIDE 10 MG TAB PO PRN (08:55)
[2023-12-19] MEDS ORDERED: ACETAMINOPHEN TAB 325 MG TAB PO PRN (08:55)
[2023-12-19] MEDS ORDERED: IPRATROPIUM-ALBUTEROL 3 ML NEB INHALATION PRN (08:55)
[2023-12-19] MEDS ORDERED: ALBUTEROL HFA INHALER INHALATION PRN (08:55)
[2023-12-19] MEDS ORDERED: methocarbamoL 500 MG TAB PO PRN (08:55)
[2023-12-19] MEDS ORDERED: NITROGLYCERIN SL TABS 0.4 MG TAB SUBLINGUAL PRN (08:55)
[2023-12-19] MEDS ORDERED: PROCHLORPERAZINE 5 MG TAB PO PRN (08:55)
--- NOTE | 2023-12-19 09:27 | P.HPIM ---
History of Present Illness This is a pleasant 53 years old female with past medical history of DVT/PE and atrial fibrillationon Eliquis at home, her lease out man is Dr. Loera . Aspirin has been added because she states that she's been having multiple TIA, but despite that she does not follow up with the neurologist. Patient stated that she has 2 strokes before and she got TPA long time ago. Also patient states that she is under a lot of stress because of her bipolar and she is to see a psychiatrist. She denies homicidal suicidal ideation and she de nies hallucination or delusions She came to the hospital because her speech was abnormal slow and slurred started 3:30 urine a morning just before she goes to bed, she told her fianc who brought her to the emergency room. Patient's stated that she has been disoriented and confused, she knows she is in the hospital but she could not tell the time. She knew the name of the president gabriel, Patient complaining of from some headache as well. She denies weakness but she was complaining of from tingling in both upper and lower extremities. However during examination she tolerated her left upper extremity is heavier. She complains from chest pain radiating to the back but currently chest pain r esolved she still complains from some back pain with little tenderness She is complaining also from nonspecific abdominal pain, abdomen looks nontender and soft. Patient also complaining of from left thigh pain, she says she broke her hip/femur in May after she fell and she still have pain there and she thinks she might have another fracture. patient says she was compliant with her Eliquis and aspirin at home prior to hospitalization. She states she takes Klonopin for bipolar, no history of seizure disorder Review of Systems Review of systems CONSTITUTIONAL: No fever, no malaise, no fatigue. HEENT: No recent visual problems or hearing problems. Denied any sore throat. CARDIOVASCULAR: No orthopnea, PND, no palpitations, no syncope. PULMONARY: No shortness of breath, no cough, no hemoptysis. GASTROINTESTINAL: No diarrhea, no nausea, no vomiting, no abdominal pain. Normoactive bowel sounds. NEUROLOGICAL: No headaches, no weakness, no numbness. HEMATOLOGICAL: Denies any bleeding or petechiae. GENITOURINARY: Denies any burning micturition, frequency, or urgency. MUSCULOSKELETAL/RHEUMATOLOGICAL: Denies any joint pain, swelling, or any muscle pain. ENDOCRINE: Denies any polyuria or polydipsia. Past Medical History Past Medical History: Asthma, Chest Pain / Angina, CVA/TIA, Diabetes Mellitus, Deep Vein Thrombosis (DVT), Fibromyalgia, GERD/Reflux, Hyperlipidemia, Hypertension, Liver Disease, Myocardial Infarction ([place]), Pulmonary Embolus ([place]) Additional Past Medical History / Comment(s): fibomyalgia, light weakness on left after stroke coming back. mild [place] from EKG unknown time. will test for Sleep apnea. has scd at home. recent blood in stools. non alcoholic fatty liver,, diverticulosis. Last Myocardial Infarction Date:: unk History of Any Multi-Drug Resistant Organisms: C-DIFF Date of last positivie culture/infection: 2019 MDRO Source:: stool Past Surgical History: Appendectomy, Cholecystectomy, Hysterectomy, Orthopedic Surgery Additional Past Surgical History / Comment(s): left knee replaced. left rotator cuff repair . rt hip stretched bursa. colonoscopies, laproscopic surgery to remove abdominal adhesions, left femur sx Past Anesthesia/Blood Transfusion Reactions: Postoperative Nausea & Vomiting (PONV) Additional Past Anesthesia/Blood Transfusion Reaction / Comment(s): with lap procedure had a hard time waking up. Past Psychological History: Bipolar, Depression Smoking Status: Never smoker Past Alcohol Use History: None Reported Past Drug Use History: Marijuana - Past Family History Mother Family Medical History: Cancer Additional Family Medical History / Comment(s): uterine Father Family Medical History: Cancer Additional Family Medical History / Comment(s): lung Medications and Allergies Home Medications Medication Instructions Recorded Confirmed Type Albuterol Sulfate [Albuterol 2 puff INHALATION RT-Q6H PRN 11/15/22 12/19/23 History Sulfate Hfa] Amitriptyline HCl [Elavil] 25 mg PO HS 11/15/22 12/19/23 History Apixaban [Eliquis] 5 mg PO BID 11/15/22 12/19/23 History Atorvastatin Calcium [Lipitor] 40 mg PO DAILY 11/15/22 12/19/23 History Insulin Aspart [NovoLOG Flexpen] See Protocol SQ AC-TID PRN 11/15/22 12/19/23 Hi story Magnesium Oxide 400 mg PO DAILY 11/15/22 12/19/23 History Montelukast Sodium [Singulair] 10 mg PO HS 11/15/22 12/19/23 History Nitroglycerin Sl Tabs [Nitrostat] 0.4 mg SUBLINGUAL Q5M PRN 11/15/22 12/19/23 History Omeprazole 40 mg PO BID 11/15/22 12/19/23 History methocarbamoL [Robaxin] 500 mg PO TID PRN 11/15/22 12/19/23 History Multivitamins, Thera [Multivitamin 1 tab PO DAILY 02/28/23 12/19/23 History (formulary)] Dulaglutide [Trulicity] 4.5 mg SQ VICTORIA 10/09/23 12/19/23 History Famotidine [Pepcid] 20 mg PO BID 10/09/23 12/19/23 History Fluticasone Nasal [place] [Flonase 1 spray EA NOSTRIL DAILY 10/09/23 12/19/23 History Nasal [place]] Fluticasone Propion/Salmeterol 1 puff INHALATION RT-BID 10/09/23 12/19/23 History [Fluticasone-Salmeterol 100-50] Furosemide [Lasix] 20 mg PO DAILY 10/09/23 12/19/23 History Ipratropium-Albuterol Nebulize 3 ml INHALATION RT-QID PRN 10/09/23 12/19/23 History [Duoneb 0.5 mg-3 mg/3 ml Soln] Prochlorperazine [Compazine] 5 mg PO BID PRN 10/09/23 12/19/23 History Metoclopramide [Reglan] 10 mg PO TID PRN #15 tab 10/27/23 12/19/23 Rx Diltiazem Cd [Cardizem CD] 180 mg PO DAILY #30 cap 11/19/23 12/19/23 Rx clonazePAM [KlonoPIN] 1 mg PO BID 11/19/23 12/19/23 History Ranolazine [Ranexa] 500 mg PO BID 11/28/23 12/19/23 History Acetaminophen Tab [Tylenol] 650 mg PO Q6HR PRN tab 11/30/23 12/19/23 Rx Aspirin 81 mg PO DAILY #30 tab 11/30/23 12/19/23 Rx Insulin Detemir [Levemir Flexpen] 40 units SQ DAILY 12/19/23 12/19/23 History Isosorbide Mononitrate ER [Imdur] 60 mg PO DAILY 12/19/23 12/19/23 History Allergies Allergy/AdvReac Type Severity Reaction Status Date / Time adhesive Allergy red skin Verified 12/19/23 07:58 trimethobenzamide Allergy Rash/Hives Verified 12/19/23 07:58 [From Tigan] vancomycin Allergy Rash/Hives Verified 12/19/23 07:58 Physical Exam Vitals: Vital Signs Temp Pulse Resp BP Pulse Ox 12/19/23 06:45 78 20 168/82 95 12/19/23 06:30 79 18 160/88 98 12/19/23 06:15 79 23 153/85 96 12/19/23 06:00 75 21 154/83 97 12/19/23 05:45 74 20 152/72 97 12/19/23 05:30 83 18 158/77 97 12/19/23 05:15 75 21 139/69 96 12/19/23 05:00 80 18 145/55 96 12/19/23 04:08 98 F 91 18 165/98 96 Intake and Output 12/18/23 12/19/23 12/19/23 22:59 06:59 14:59 Other: Weight 108.862 kg -GENERAL: The patient is alert and oriented x3, not in any acute distress. Obese HEENT: Pupils are round and equally reacting to light. EOMI. No scleral icterus. No conjunctival pallor. Normocephalic, atraumatic. No pharyngeal erythema. No thyromegaly. CARDIOVASCULAR: S1 and S2 present. No murmurs, rubs, or gallops. PULMONARY: Chest is clear to auscultation, no wheezing , no crackles. ABDOMEN: Soft, nontender, nondistended, normoactive bowel sounds. No palpable organomegaly. MUSCULOSKELETAL: No joint swelling or deformity. EXTREMITIES: No cyanosis, clubbing, or pedal edema. -NEUROLOGICAL: Gross neurological examination did not reveal any focal deficits. No facial deviation or facial droop. Her speech is slow but fluctuates in velocity her left upper extremity is weak but strength also fluctuates. She complains from tingling in all 4 extremities. Meningeal signs are absent SKIN: No rashes. no petechiae. Results CBC & Chem 7: 12/19/23 05:28 12/19/23 05:28 Labs: Abnormal Lab Results - Last 24 Hours (Table) 12/19/23 Range/Units 05:28 Glucose 146 H (74-99) mg/dL Alkaline Phosphatase 174 H (38-126) U/L Assessment and Plan Assessment: Slow speech and other neurological symptoms that does not follow specific neuro anatomic distribution, like numbness in all 4 extremities and heaviness in the left upper extremity. This could be related to her stress and bipolar illness as ( conversion disorder) however TIA cannot be entirely excluded clinically Bipolar with depression Paroxysmal atrial fibrillation on a was at home History of multiple TIA on aspirin Obesity with BMI of 38.7 History of left hip fracture per patient, complaining of from pain. Diabetes mellitus Fibromyalgia History of GERD Hypertension Hyperlipidemia Nonalcoholic fatty liver History of diverticulosis Plan: Patient symptoms does not follow certain anatomic distribution, also patient says she was compliant with her Eliquis and aspirin at home prior to hospitalization. Her symptoms to look more related to stress and bipolar therefore we go to consult psych service. Neurologist also been consulted Continue with Eliquis and aspirin Check left femur x-ray Continue with klonopin, patient states she take it for bipolar that she Labs and medication were reviewed.. Continue same treatment. Continue with s ymptomatic treatment. Resume home medication. Monitor labs and vitals. DVT and GI prophylaxis. Further recommendations as per clinical course of the patient DVT prophylaxis: Eliquis and aspirin GI Prophylaxis: Pepcid Prognosis is guarded
[2023-12-19] MEDS: APIXABAN 5 MG TAB PO SCH ×2 (10:00→20:57)
[2023-12-19] MEDS: FLUTICASONE 50MCG/SPRAY NASAL 16GM EA NOSTRIL SCH (10:00)
[2023-12-19] MEDS: FAMOTIDINE 20 MG TAB PO SCH ×2 (10:00→20:57)
[2023-12-19] MEDS: FUROSEMIDE 20 MG TAB PO SCH (10:00)
[2023-12-19] MEDS: clonazePAM 1 MG TAB PO SCH ×2 (10:00→20:57)
[2023-12-19] MEDS: DILTIAZEM CD 180 MG CAP.ER.24H PO SCH (10:00)
[2023-12-19] MEDS: ATORVASTATIN 40 MG TAB PO SCH (10:00)
[2023-12-19] MEDS: ISOSORBIDE MONONITRATE ER 60 MG TAB.ER.24H PO SCH (10:01)
[2023-12-19] MEDS: MAGNESIUM OXIDE 400 MG TAB PO SCH (10:01)
[2023-12-19] MEDS: RANOLAZINE 500 MG TAB.ER.12H PO SCH ×2 (10:01→20:57)
--- NOTE | 2023-12-19 10:20 | XR ---
EXAMINATION TYPE: XR femur LT DATE OF EXAM: 12/19/2023 CLINICAL HISTORY: pain TECHNIQUE: Two views of the left femur are obtained. COMPARISON: None. FINDINGS: Intramedullary franco left femur is noted to be in place. There is callus formation distal lef t femoral diaphysis and diametaphyseal region. No evidence for acute fracture or dislocation. Total k nee arthroplasty seen. IMPRESSION: As above
[2023-12-19] MEDS ORDERED: traZODone HCL 50 MG TAB PO PRN (14:08)
--- NOTE | 2023-12-19 14:16 | P.CN ---
Psychiatric Consult - . Consult date: 12/19/23 Consult:: 12/19/23 13:21 IDENTIFYING DATA: This patient is a 53-year-old female, currently lives with her fianc in a mobile home, he she has 1 daughter, she collect Social Security disability. REASON FOR REFERRAL: Psychiatry was consulted for "bipolar, possible conversion disorder" HISTORY OF PRESENT ILLNESS: The patient presented to the hospital on 12/19 for concerning neurological symptoms and evaluation of a possible stroke. According to patient she has had a history of several TIAs in the past and a stroke. Claims that she has been on tPA as well in the past. States that she was confused at home sudden onset, also speech abnormality and slurred words. Patient had a CT scan which is negative. Currently awaiting MRI. She was sitting on the bed, looking at her iPad. She was fairly cooperative, hesitant speech. Fairly concrete. She was following directions and commands. She claims that she was concerned about having another stroke and came to the hospital. States that she has been under a lot of stress recently due to moving to the area about a year ago. States that she is not able to find a psychiatrist in this county. States that she is also dealing with issues from her previous divorce. States that her mood is fair at this time however does report a history of more depression. Claims that she cannot remember her last manic episode however does believe that she was diagnosed with bipolar in the past. States that she has been mainly taking Klonopin for her "mood". States that her anxiety is fair. Claims that her sleep has been poor about 4 hours a night. States that her appetite has been on and off. At this time patient denies any suicidal or homical ideations, intent or plan. Patient denies any auditory, visual hallucinations and denies any paranoia or delusions. Patients admits to using marijuana occasionally, denies any other recreational drug use. PAST PSYCHIATRIC HISTORY: Patient has a a history of bipolar disorder. She claims that she is on several different psychiatric medications in the past however cannot remember them. States that currently she is on Elavil and Klonopin. Claims that she was last psychiatrically hospitalized several years ago at [facility]. Patient denies any psychiatric outpatient follow-up. Claimed that she is overdosed twice in the past. Past Medical History: Asthma, Chest Pain / Angina, CVA/TIA, Diabetes Mellitus, Deep Vein Thrombosis (DVT), Fibromyalgia, GERD/Reflux, Hyperlipidemia, Hypertension, Liver Disease, Myocardial Infarction ([place]), Pulmonary Embolus ([place]) Additional Past Medical History / Comment(s): fibomyalgia, light weakness on left after stroke coming back. mild [place] from EKG unknown time. will test for Sleep apnea. has scd at home. recent blood in stools. non alcoholic fatty liver,, diverticulosis. Last Myocardial Infarction Date:: unk History of Any Multi-Drug Resistant Organisms: C-DIFF Date of last positivie culture/infection: 2019 MDRO Source:: stool Past Surgical History: Appendectomy, Cholecystectomy, Hysterectomy, Orthopedic Surgery Additional Past Surgical History / Comment(s): left knee replaced. left rotator cuff repair . rt hip stretched bursa. colonoscopies, laproscopic surgery to remove abdominal adhesions, left femur sx Past Anesthesia/Blood Transfusion Reactions: Postoperative Nausea & Vomiting (PONV) Additional Past Anesthesia/Blood Transfusion Reaction / Comment(s): with lap procedure had a hard time waking up. Past Psychological History: Bipolar, Depression Smoking Status: Never smoker Past Alcohol Use History: None Reported Past Drug Use History: Marijuana ALLERGIES: as per EMR. CHEMICAL DEPENDENCY HISTORY: as per HPI. FAMILY PSYCHIATRIC/SUBSTANCE USE HISTORY: Claims that her daughter has bipolar disorder SOCIAL HISTORY: Patient was born and raised in [facility]. States that she completed high school and did some college. 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 Denies any legal history. States that she currently lives with her fianc in a trailer. She has 1 daughter. She collect Social Security disability. MENTAL STATUS EXAM: General Appearance: Patient appears to be mildly overweight, fair hygiene and grooming, wearing glasses, stated age is alert, pleasant, and cooperative. Fair eye contact Behavior: Patient is calmly lying in bed without any agitated behavior. Speech: Patient's speech is hesitant, concrete Mood/Affect: Patient reports their mood is "ok now but sometimes depressed", affect is congruent and constricted Suicidality/Homicidality: Patient denies having any suicidal or homicidal ideation intent or plan. Perceptions: Patient denies any visual hallucinations and denies any auditory hallucinations Though content/process: There is no evidence of any delusional thought content and thought process is linear and goal-directed. [place]. Hesitant Memory and concentration: AOX3, grossly intact for the purposes of this session. Can spell "WORLD" backwards Judgment and insight: Fair IMPRESSIONS: History of bipolar disorder Cannabis use disorder mild Rule out stroke versus TIA PLAN: -At this time patient DOES NOT meet criteria for inpatient psychiatric admission. -Would recommend the following medication changes/additions: Can continue Klonopin as prescribed, this should be reevaluated and gradually taper down however as an outpatient. Discontinue Elavil and replaced with Cymbalta 30 mg nightly for mood/anxiety/pain, lithium 150 mg twice daily for mood stabilization/depression, trazodone 50 mg nightly as needed for sleep. -criminal justice social worker to provide patient with outpatient mental health/psychiatry resources for appropriate follow up upon discharge -Coat Agent spoke with patient about substance abuse and the harmful effects on medical and mental health, patient verbally understood and agreed. -Communicated plan to patient's nurse -Psychiatry will sign off at this time unless requested -Please contact with any questions. 12/19/23 14:10
--- NOTE | 2023-12-19 14:22 | P.CNNES ---
History of Present Illness Consult date: 12/19/23 Requesting physician: Amber Wren Reason for Consult: speech difficulty, hx of cva History of Present Illness: This is a 53-year-old woman with history of stroke, TIAs with residual left lower extremity weakness, DVT on eliquis, double conversion on 03/09/[address] Estrada for left sided weakness bipolar presented emergency department because of the speech difficulty and weakness over the left face upper extremity worsening in the weakness in the left lower as well as left facial droop with numbness on the left side. Patient stated that her symptoms began around 3:30 AM today and was awake prior to that and was normal. She doesn't have history of strokes in the past as well as TIAs. She has left lower extremity weakness and has rods in the left lower extremity at. She is compliant taking her aspirin 81 mg, eliquis 5mg bid and Lipitor 40mg daily. She states that she has diabetes, hypertension, hypercholesterolemia. Her diabetes, is being managed better compared to past in which her HbA1c is trending lower compared to past and it is in low 7.oish per patient. She denies of headache currently. He does not follow up with a neurologist since she stated that she has moved in to [facility] in the last 1 year. Of note, patient was evaluated last by Dr. Estrada in our facility on 03/09/2023 for acute onset left arm weakness facial droop and slurring the speech. MRI the brain was negative for any acute stroke. Probable conversion. Some of the Workup during his hospital visit consisted of: CBC with differential is unremarkable Chemstry panel is the serum glucose is 146 otherwise rest of the Chemstry panel is unremarkable PT, PTT and INR are within normal limits. CT head is reported as no acute hemorrhage, hydrocephalus or mass effect. I personally reviewed the CT and agree with the report. There is no acute or subacute ischemic stroke. Review of Systems The positive and negative as per HPI. Past Medical History Past Medical History: Asthma, Chest Pain / Angina, CVA/TIA, Diabetes Mellitus, Deep Vein Thrombosis (DVT), Fibromyalgia, GERD/Reflux, Hyperlipidemia, Hypertension, Liver Disease, Myocardial Infarction (PA), Pulmonary Embolus (PE) Additional Past Medical History / Comment(s): fibomyalgia, light weakness on left after stroke coming back. mild PA from EKG unknown time. will test for Sleep apnea. has scd at home. recent blood in stools. non alcoholic fatty liver,, diverticulosis. Last Myocardial Infarction Date:: unk History of Any Multi-Drug Resistant Organisms: C-DIFF Date of last positivie culture/infection: 2019 MDRO Source:: stool Past Surgical History: Appendectomy, Cholecystectomy, Hysterectomy, Orthopedic Surgery Additional Past Surgical History / Comment(s): left knee replaced. left rotator cuff repair . rt hip stretched bursa. colonoscopies, laproscopic surgery to remove abdominal adhesions, left femur sx Past Anesthesia/Blood Transfusion Reactions: Postoperative Nausea & Vomiting (PONV) Additional Past Anesthesia/Blood Transfusion Reaction / Comment(s): with lap procedure had a hard time waking up. Past Psychological History: Bipolar, Depression Smoking Status: Never smoker Past Alcohol Use History: None Reported Past Drug Use History: Marijuana - Past Family History Mother Family Medical History: Cancer Additional Family Medical History / Comment(s): uterine Father Family Medical History: Cancer Additional Family Medical History / Comment(s): lung Medications and Allergies Home Medications Medication Instructions Recorded Confirmed Type Albuterol Sulfate [Albuterol 2 puff INHALATION RT-Q6H PRN 11/15/22 12/19/23 History Sulfate Hfa] Amitriptyline HCl [Elavil] 25 mg PO HS 11/15/22 12/19/23 History Apixaban [Eliquis] 5 mg PO BID 11/15/22 12/19/23 History Atorvastatin Calcium [Lipitor] 40 mg PO DAILY 11/15/22 12/19/23 History Insulin Aspart [NovoLOG Flexpen] See Protocol SQ AC-TID PRN 11/15/22 12/19/23 History Magnesium Oxide 400 mg PO DAILY 11/15/22 12/19/23 History Montelukast Sodium [Singulair] 10 mg PO HS 11/15/22 12/19/23 History Nitroglycerin Sl Tabs [Nitrostat] 0.4 mg SUBLINGUAL Q5M PRN 11/15/22 12/19/23 History Omeprazole 40 mg PO BID 11/15/22 12/19/23 History methocarbamoL [Robaxin] 500 mg PO TID PRN 11/15/22 12/19/23 History Multivitamins, Thera [Multivitamin 1 tab PO DAILY 02/28/23 12/19/23 History (formulary)] Dulaglutide [Trulicity] 4.5 mg SQ VICTORIA 10/09/23 12/19/23 History Famotidine [Pepcid] 20 mg PO BID 10/09/23 12/19/23 History Fluticasone Nasal [place] [Flonase 1 spray EA NOSTRIL DAILY 10/09/23 12/19/23 History Nasal [place]] Fluticasone Propion/Salmeterol 1 puff INHALATION RT-BID 10/09/23 12/19/23 History [Fluticasone-Salmeterol 100-50] Furosemide [Lasix] 20 mg PO DAILY 10/09/23 12/19/23 History Ipratropium-Albuterol Nebulize 3 ml INHALATION RT-QID PRN 10/09/23 12/19/23 History [Duoneb 0.5 mg-3 mg/3 ml Soln] Prochlorperazine [Compazine] 5 mg PO BID PRN 10/09/23 12/19/23 History Metoclopramide [Reglan] 10 mg PO TID PRN #15 tab 10/27/23 12/19/23 Rx Diltiazem Cd [Cardizem CD] 180 mg PO DAILY #30 cap 11/19/23 12/19/23 Rx clonazePAM [KlonoPIN] 1 mg PO BID 11/19/23 12/19/23 History Ranolazine [Ranexa] 500 mg PO BID 11/28/23 12/19/23 History Acetaminophen Tab [Tylenol] 650 mg PO Q6HR PRN tab 11/30/23 12/19/23 Rx Aspirin 81 mg PO DAILY #30 tab 11/30/23 12/19/23 Rx Insulin Detemir [Levemir Flexpen] 40 units SQ DAILY 12/19/23 12/19/23 History Isosorbide Mononitrate ER [Imdur] 60 mg PO DAILY 12/19/23 12/19/23 History Allergies Allergy/AdvReac Type Severity Reaction Status Date / Time adhesive Allergy red skin Verified 12/19/23 07:58 trimethobenzamide Allergy Rash/Hives Verified 12/19/23 07:58 [From [facility]] vancomycin Allergy Rash/Hives Verified 12/19/23 07:58 Physical Examination - Vital Signs Vital Signs: Vital Signs Temp Pulse Resp BP Pulse Ox 12/19/23 13:37 95 20 137/68 95 12/19/23 10:02 98.3 F 89 20 126/57 98 12/19/23 09:00 86 20 139/89 94 L 12/19/23 06:45 78 20 168/82 95 12/19/23 06:30 79 18 160/88 98 12/19/23 06:15 79 23 153/85 96 12/19/23 06:00 75 21 154/83 97 12/19/23 05:45 74 20 152/72 97 12/19/23 05:30 83 18 158/77 97 12/19/23 05:15 75 21 139/69 96 12/19/23 05:00 80 18 145/55 96 12/19/23 04:08 98 F 91 18 165/98 96 Intake and Output 12/18/23 12/19/23 12/19/23 22:59 06:59 14:59 Other: Weight 108.862 kg GENERAL: The patient is lying in bed and is not in acute distress.. NEUROLOGICAL: Higher mental function: The patient is awake, alert, oriented to self, place and time. Patient is following commands. Patient speech was inconsistent. No neglect. Cranial nerves: The pupils are round, equal and reactive to light and accom modation. Visual alexander are full to confrontation throughout. Extraocular movement is intact no nystagmus is noted. Facial sensation is normal to touch throughout. The facial strength is normal throughout. Hearing is normal bilaterally to hand rub. Tongue is midline and moved [id number] without any difficulty. No dysarthria is noted. Shoulder shrug is normal bilaterally. Motor: The strength is left upper and lower extremity is 4 in upper and had drift while left lower had 4+. Right side is 5 over 5 throughout. Normal tone and bulk. Cerebellum: Normal finger to nose bilaterally. Sensation: Sensation is decrease to touch on the left side. Reflexes (right/left): 2+ throughout. Plantars are mute bilaterally. Results - Laboratory Findings CBC and BMP: 12/19/23 05:28 12/19/23 05:28 Abnormal Lab Findings: Abnormal Labs 12/19/23 05:28 Glucose 146 H Alkaline Phosphatase 174 H Assessment and Plan Assessment: A 53-year-old woman who states that she presents because of left-sided weakness, numbness including the face and speech difficulty. It seems that the patient had similar presentation on 03/07/2023 had MRI and at that time she was evaluated by Dr. Estrada will felt possible conversion * Acute onset of left sided weakness/hemiparesis (with worsening left lower), left facial droop, numbness and speech difficulty. On examination her speech was inconsistent. Rule out CVA which I doubt. I feel more coversion especially with similar episode in past. * History of similar presentation above with MRI Negative in past and felt possible conversion. * Hypertension * Diabetes * Hyperlipidemia * Previous history of possible CVA. * History of DVT and PE, on long-term Eliquis. * History of diverticulosis and recent GI bleed. * Bipolar Plan: I ordered MRI Brain. Patient is on home ASA 81mg, eliquis 5mg bid and Lipitor 40mg qhs. Neuro checks. Consulted PT, OT and [employer] I will hold 2D echo or lipid panel unless there is acute CVA. Psychiatry is consulted. Will defer the rest of medical management to primary team and other specialist. For DVT prophylaxis is on Eliquis. Thank you for the consultation. Time with Patient: Greater than 30
[2023-12-19] MEDS ORDERED: LORazepam 2 MG/ML INJ IV ONE (18:22)
[2023-12-19] MEDS: LITHIUM CARBONATE 150 MG CAP PO SCH ×2 (18:27→20:58)
[2023-12-19] MEDS ORDERED: DEXTROSE 50% SYRINGE 50 ML IVP PRN ×2 (19:11)
[2023-12-19 20:24] LABS: Glucose,Whole Blood 255 mg/dL (70-110)
[2023-12-19 20:26] VITALS: RESP 16
[2023-12-19] MEDS: INSULIN ASPART (NovoLOG) 100 UNIT/ML VIAL SQ SCH (20:59)
[2023-12-19] MEDS ORDERED: MONTELUKAST 10 MG TAB PO SCH (21:00)
[2023-12-19] MEDS ORDERED: DULoxetine HCL 30 MG CAPSULE.DR PO SCH (21:00)
[2023-12-19] MEDS ORDERED: AMITRIPTYLINE HCL 25 MG TAB PO SCH (21:00)
[2023-12-20 06:24] LABS: Glucose,Whole Blood 128 mg/dL (70-110)
[2023-12-20] MEDS: INSULIN ASPART (NovoLOG) 100 UNIT/ML VIAL SQ SCH ×2 (06:25→13:07)
[2023-12-20] MEDS ORDERED: INSULIN DETEMIR (LEVEMIR) 100 UNIT/ML SYR SQ SCH (09:00)
[2023-12-20] MEDS ORDERED: ASPIRIN 81 MG PO SCH (09:00)
[2023-12-20] MEDS: FLUTICASONE 50MCG/SPRAY NASAL 16GM EA NOSTRIL SCH (09:01)
[2023-12-20] MEDS: DILTIAZEM CD 180 MG CAP.ER.24H PO SCH (09:01)
[2023-12-20] MEDS: MAGNESIUM OXIDE 400 MG TAB PO SCH (09:02)
[2023-12-20] MEDS: ISOSORBIDE MONONITRATE ER 60 MG TAB.ER.24H PO SCH (09:02)
[2023-12-20] MEDS: FUROSEMIDE 20 MG TAB PO SCH (09:02)
[2023-12-20] MEDS: LITHIUM CARBONATE 150 MG CAP PO SCH (09:02)
[2023-12-20] MEDS: APIXABAN 5 MG TAB PO SCH (09:02)
[2023-12-20] MEDS: clonazePAM 1 MG TAB PO SCH (09:02)
[2023-12-20] MEDS: ATORVASTATIN 40 MG TAB PO SCH (09:02)
[2023-12-20] MEDS: RANOLAZINE 500 MG TAB.ER.12H PO SCH (09:02)
[2023-12-20] MEDS: FAMOTIDINE 20 MG TAB PO SCH (09:02)
--- NOTE | 2023-12-20 11:45 | MR ---
EXAMINATION TYPE: MR brain wo con DATE OF EXAM: 12/20/2023 11:15 AM CLINICAL INDICATION:Female, 53 years old with history of stroke; Speech difficulty, evaluate for stro ke. COMPARISON: 03/08/2023. TECHNIQUE: Multi planar, multi sequence imaging was performed through the brain including: T1, T2, In version recovery, Diffusion weighted imaging, and gradient echo imaging. No gadolinium was given. FINDINGS: The hodges-white junctions, ventricular system, basal cisterns appear unremarkable. Midline structures show no abnormality. Diffusion-weighted imaging shows no evidence of restricted diffusion. The suscep tibility weighted images do not reveal any evidence for micro-hemorrhage. Stable left Virchow-Jaron s pace versus choroid fissure cyst. The bone marrow signal is within normal limits. Paranasal sinuses and mastoid air cells: No significant paranasal sinus disease. Visualized orbits: Orbital contents are intact. IMPRESSION: No evidence of intracranial mass or acute/subacute infarct.
[2023-12-20] MEDS ORDERED: SODIUM CHLORIDE 0.9% 1,000 ML IV SCH (12:00)
[2023-12-20 12:31] LABS: Glucose,Whole Blood 180 mg/dL (70-110)
[2023-12-20] MEDS: IOPAMIDOL CONTRAST (ORAL USE) VIAL PO PRN ×2 (12:36→13:10)
[2023-12-20 14:05] VITALS: BP 163/83; PULSE 82; TEMP 97.9
--- NOTE | 2023-12-20 15:52 | CT ---
EXAMINATION TYPE: CT abdomen pelvis w con DATE OF EXAM: 12/20/2023 COMPARISON: 11/19/2023 INDICATION: Rt side abdominal pain. DLP: 2002 mGycm, Automated exposure control for dose reduction was used. CONTRAST: 100 ml mL of Isovue 300. Study performed with Oral Contrast TECHNIQUE: Axial images were obtained from above the diaphragm to the pubic rami in the axial plane a t 5 mm thick sections. Reconstructed images are reviewed on the computer in the coronal plane. FINDINGS: Limited CT sections are obtained the lung bases. The lung bases are clear. CT ABDOMEN: No free fluid is evident. No suspicious inflammatory changes evident. No free air is iden tified. Liver: Normal Spleen: Normal Pancreas: Normal Adrenal glands: The adrenal glands are normal. Gallbladder: Surgically absent Kidneys: No masses are evident. No hydronephrosis is present. No cysts are present. Delayed images were obtained through the kidneys, which remain unremarkable. Aorta: Vascular calcification is within the aorta. Inferior vena cava: Normal. CT PELVIS: Loops of bowel within the abdomen and pelvis are normal. There are loops of bowel which are incom pletely distended or lack oral contrast limiting their evaluation. Appendix: Not identified. No dilated tubular structure or inflammatory change is evident. Urinary bladder: Normal. Genitourinary structures: Uterus and ovaries are not identified. Osseous structures: No suspicious lytic or sclerotic lesions. IMPRESSION: 1. No acute abdominal process radiographically apparent. Follow-up can be performed as clinically in dicated.
--- NOTE | 2023-12-20 18:14 | P.PN ---
Progress Note - Text Progress Note Date: 12/20/23 MRI Brain is negative for acute or subacute ischemia or mass. The patient needs to follow-up with neurologist and psychiatrist as outpatient. I also recommend for her to follow-up with physical therapy as outpatient. The plan is discussed with primary team N.P.
--- NOTE | 2023-12-21 06:33 | P.DS ---
Providers Date of admission: 12/19/23 06:45 Attending physician: Velvet Henderson Consults: 12/19/23 06:45 Consult Physician Routine Consulting Provider: Arcelia Estrada Consult Reason/Comments: speech difficulty, hx of cva Do you want consulting provider notified?: Yes 12/19/23 09:27 Consult Physician Routine Consulting Provider: Gil Ma Consult Reason/Comments: bipolar , possible conversion disorder Do you want consulting provider notified?: Yes Primary care physician: [facility] Course: Diagnoses: Slow speech and other neurological symptoms that does not follow specific neuro anatomic distribution, like numbness in all 4 extremities and heaviness in the left upper extremity. This could be related to her stress and bipolar illness as ( conversion disorder) however TIA cannot be entirely excluded clinically Bipolar with depression Paroxysmal atrial fibrillation on eliquis at home (pt states she has the medication at home and she does not want prescription upon discharge) History of multiple TIA on aspirin Obesity with BMI of 38.7 History of left hip fracture per patient, complaining of from pain. Diabetes mellitus Fibromyalgia History of GERD Hypertension Hyperlipidemia Nonalcoholic fatty liver History of diverticulosis Hospital course: This is a pleasant 53 years old female with past medical history of DVT/PE and atrial fibrillationon Eliquis at home, her hide puller is Dr. Loera . Aspirin has been added because she states that she's been having multiple TIA, but despite that she does not follow up with the neurologist. Patient stated that she has 2 strokes before and she got TPA long time ago. Also patient states that she is under a lot of stress because of her bipolar and she is to see a psychiatrist. She denies homicidal suicidal ideation and she denies hallucination or delusions. She was evaluated by psychiatrist. He stop her Elavil and started her on lithium, trazodone and Cymbalta and patient is agreeable She presents with no specific neurological symptoms and does not follow specific neurological anatomic distribution, L5 method by neurologist, MRI of the brain was negative, her nerve symptoms completely resolved upon discharge. Also patient on the day of discharge complained from abdominal pain, CT of the abdomen and pelvis is negative for acute process. Patient tolerates diet after that with no difficulty, has nausea with bowel movement and her abdominal pain improved Abdomen without patient is back to baseline and she denies any other new complaint at bedside. Patient was cleared for discharge by neurologist Problems and management plan were discussed with the patient and he verbalized understanding and acceptance Patient was found stable and can be discharged home in guarded prognosis however he needs follow-up as an outpatient. Patient was instructed to follow up with PCP within one week and patient agrees Patient was instructed to follow-up with the neurologist Dr. Dumont in 1-2 weeks and she agrees Patient was instructed to follow up with the psychiatrist in 1 week and the contact information for [facility] as provided for her verbally and written on discharge instructions and she verbalized understanding and acceptance Physical exam Gen: patient is a AAOx3, no distress CVS: S1-S2, RRR, no murmur Lungs: B/L CTA, no wheezing Abdomen: soft, no distention, no tenderness, positive bowel sounds Extremity: no leg edema or induration Time spent more than 35 minutes Patient Condition at Discharge: Good Plan - Discharge Summary New Discharge Prescriptions: New DULoxetine HCL [Cymbalta] 30 mg PO HS #30 cap traZODone HCL [Desyrel] 50 mg PO HS PRN #30 tab PRN Reason: Insomnia [place] Carbonate 150 mg PO BID #60 cap Continue methocarbamoL [Robaxin] 500 mg PO TID PRN PRN Reason: MIGRAINES Omeprazole 40 mg PO BID Nitroglycerin Sl Tabs [Nitrostat] 0.4 mg SUBLINGUAL Q5M PRN PRN Reason: Chest Pain Montelukast Sodium [Singulair] 10 mg PO HS Magnesium Oxide 400 mg PO DAILY Atorvastatin Calcium [Lipitor] 40 mg PO DAILY Albuterol Sulfate [Albuterol Sulfate Hfa] 2 puff INHALATION RT-Q6H PRN PRN Reason: Shortness Of Breath Famotidine [Pepcid] 20 mg PO BID Furosemide [Lasix] 20 mg PO DAILY Ipratropium-Albuterol Nebulize [Duoneb 0.5 mg-3 mg/3 ml Soln] 3 ml INHALATION RT-QID PRN PRN Reason: Shortness Of Breath Prochlorperazine [Compazine] 5 mg PO BID PRN PRN Reason: Nausea clonazePAM [KlonoPIN] 1 mg PO BID Ranolazine [Ranexa] 500 mg PO BID Isosorbide Mononitrate ER [Imdur] 60 mg PO DAILY Insulin Aspart [NovoLOG Flexpen] See Protocol SQ AC-TID PRN PRN Reason: Blood Sugar - High Apixaban [Eliquis] 5 mg PO BID Multivitamins, Thera [Multivitamin (formulary)] 1 tab PO DAILY Dulaglutide [Trulicity] 4.5 mg SQ VICTORIA Fluticasone Nasal [place] [Flonase Nasal [place]] 1 spray EA NOSTRIL DAILY Fluticasone Propion/Salmeterol [Fluticasone-Salmeterol 100-50] 1 puff INHALATION RT-BID Diltiazem Cd [Cardizem CD] 180 mg PO DAILY #30 cap Aspirin 81 mg PO DAILY #30 tab Acetaminophen Tab [Tylenol] 650 mg PO Q6HR PRN tab PRN Reason: Fever And/ Or Pain Insulin Detemir [Levemir Flexpen] 40 units SQ DAILY Discontinued Amitriptyline HCl [Elavil] 25 mg PO HS Metoclopramide [Reglan] 10 mg PO TID PRN #15 tab PRN Reason: Nausea Discharge Medication List Albuterol Sulfate [Albuterol Sulfate Hfa] 2 puff INHALATION RT-Q6H PRN 11/15/22 [History] Apixaban [Eliquis] 5 mg PO BID 11/15/22 [History] Atorvastatin Calcium [Lipitor] 40 mg PO DAILY 11/15/22 [History] Insulin Aspart [NovoLOG Flexpen] See Protocol SQ AC-TID PRN 11/15/22 [History] Magnesium Oxide 400 mg PO DAILY 11/15/22 [History] Montelukast Sodium [Singulair] 10 mg PO HS 11/15/22 [History] Nitroglycerin Sl Tabs [Nitrostat] 0.4 mg SUBLINGUAL Q5M PRN 11/15/22 [History] Omeprazole 40 mg PO BID 11/15/22 [History] methocarbamoL [Robaxin] 500 mg PO TID PRN 11/15/22 [History] Multivitamins, Thera [Multivitamin (formulary)] 1 tab PO DAILY 02/28/23 [History] Dulaglutide [Trulicity] 4.5 mg SQ VICTORIA 10/09/23 [History] Famotidine [Pepcid] 20 mg PO BID 10/09/23 [History] Fluticasone Nasal [place] [Flonase Nasal [place]] 1 spray EA NOSTRIL DAILY 10/09/23 [History] Fluticasone Propion/Salmeterol [Fluticasone-Salmeterol 100-50] 1 puff INHALATION RT-BID 10/09/23 [History] Furosemide [Lasix] 20 mg PO DAILY 10/09/23 [History] Ipratropium-Albuterol Nebulize [Duoneb 0.5 mg-3 mg/3 ml Soln] 3 ml INHALATION RT-QID PRN 10/09/23 [History] Prochlorperazine [Compazine] 5 mg PO BID PRN 10/09/23 [History] Diltiazem Cd [Cardizem CD] 180 mg PO DAILY #30 cap 11/19/23 [Rx] clonazePAM [KlonoPIN] 1 mg PO BID 11/19/23 [History] Ranolazine [Ranexa] 500 mg PO BID 11/28/23 [History] Acetaminophen Tab [Tylenol] 650 mg PO Q6HR PRN tab 11/30/23 [Rx] Aspirin 81 mg PO DAILY #30 tab 11/30/23 [Rx] Insulin Detemir [Levemir Flexpen] 40 units SQ DAILY 12/19/23 [History] Isosorbide Mononitrate ER [Imdur] 60 mg PO DAILY 12/19/23 [History] DULoxetine HCL [Cymbalta] 30 mg PO HS #30 cap 12/20/23 [Rx] [place] Carbonate 150 mg PO BID #60 cap 12/20/23 [Rx] traZODone HCL [Desyrel] 50 mg PO HS PRN #30 tab 12/20/23 [Rx] Follow up Appointment(s)/Referral(s): Abby Santiago NPC [REFERRING] - 1-2 days Tj Dumont MD [Medical Doctor] - 2 Weeks (neurologist ) Activity/Diet/Wound Care/Special Instructions: For mental health crisis help call the Mobile Crisis Unit 24 hours a day, 7 days a week. Direct line: (toll free) heart healthy diet activity is restricted till you see your doctor Discharge/Stand Alone Forms: Outpatient Counseling Discharge Disposition: HOME SELF-CARE
== END 2023-12-20 17:48 | disposition home or self-care (01) ==
LOC: EC 03:58 → 6NMEDSUR 06:45
PROVIDERS: ADMIT Hospitalist; ATTEND Hospitalist
DX: R53.1 Weakness (principal); I48.0 Paroxysmal atrial fibrillation; E11.9 Type 2 diabetes mellitus without complications; R29.810 Facial weakness; M79.7 Fibromyalgia; K76.0 Fatty (change of) liver, not elsewhere classified; I25.2 Old myocardial infarction; F31.9 Bipolar disorder, unspecified; I69.354 Hemiplegia and hemiparesis following cerebral infarction affecting left non-dominant side; I10 Essential (primary) hypertension; Z79.01 Long term (current) use of anticoagulants; Z79.4 Long term (current) use of insulin; Z88.2 Allergy status to sulfonamides; Z88.8 Allergy status to other drugs, medicaments and biological substances; Z79.899 Other long term (current) drug therapy; Z79.82 Long term (current) use of aspirin; Z86.711 Personal history of pulmonary embolism; Z86.718 Personal history of other venous thrombosis and embolism
CPT/HCPCS: 96361; 96374; 99285; 36415; 94760; 93005; 92610; 92523; 80053; 82550; 84484; 85025; 85610; 85730; 73552; 71046; 70450; 74177; 70551; G0378 ×2; J2060; Q9967

== ENCOUNTER → 2024-02-13 | Outpatient (CLI) | payer MEDICARE, OTHER ==
[2024-02-13 22:08] LABS: Hepatitis A Antibody IgM Nonreactive (Nonreactive); Hepatitis B Core IgM Nonreactive (Nonreactive); Hepatitis B Surface Antigen Nonreactive (Nonreactive); Hepatitis C IgG Antibody Nonreactive (Nonreactive)
[2024-02-13 22:25] LABS: ALT 22 U/L (8-44); AST 16 U/L (13-35); Albumin 4.4 g/dL (3.8-4.9); Alkaline Phosphatase 171 U/L (41-126); Bilirubin, Conjugated <0.20 mg/dL (0.20-0.40); Bilirubin,Unconjugated >0.30 mg/dL (0.20-1.00); GGT 11 U/L (0-38); Globulin 2.1 g/dL (1.6-3.3); Total Bilirubin 0.5 mg/dL (0.3-1.2); Total Protein 6.5 g/dL (6.2-8.2)
== END | disposition home or self-care (01) ==
LOC: LABWHC1 15:42
PROVIDERS: ATTEND Internal Medicine Gastroenterology
DX: R74.8 Abnormal levels of other serum enzymes (principal)
CPT/HCPCS: 36415; 80074; 80076; 82977; 83516

== ENCOUNTER → 2024-02-17 | Outpatient (CLI) | payer MEDICARE, OTHER ==
--- NOTE | 2024-02-17 16:57 | US ---
EXAMINATION TYPE: US abdomen complete DATE OF EXAM: 02/17/2024 COMPARISON: 11/26/2022 CLINICAL INDICATION: Female, 53 years old with history of R74.8 ABNORMA LEVEL SERUM ENZYMES; Abnormal liver enzymes. Abdominal pain. TECHNIQUE: Multiple sonographic images of the abdomen are obtained. FINDINGS: EXAM MEASUREMENTS: Liver Length: 15.3 cm Gallbladder Wall: Surgically absent CBD: 0.3 cm Spleen: 10.3 cm Right Kidney: 10.0 x 5.8 x 4.9 cm Left Kidney: 10.1 x 6.4 x 5.4 cm DELIVERER MERCHANDISE NOTES: Extremely limited exam due to patient body habitus and overlying bowel gas Pancreas: Obscured by bowel gas Liver: Visualized portions appear WNL as best seen. Posterior aspect obscured by bowel gas. Gallbladder: Surgically absent Evidence for sonographic Ruiz's sign: No CBD: wnl Spleen: Visualized aspect appears WNL. Portions obscured by gas Right Kidney: No hydronephrosis or masses seen as best visualized today Left Kidney: No hydronephrosis or masses seen as best visualized today Upper IVC: Prox WNL as best seen. Abd Aorta: Obscured by overlying bowel gas IMPRESSION: 1. No acute ultrasound abnormality. Exam is limited due to body habitus.
== END | disposition home or self-care (01) ==
LOC: RADUSWWP 07:18
PROVIDERS: ATTEND Internal Medicine Gastroenterology
DX: R74.8 Abnormal levels of other serum enzymes (principal); R10.9 Unspecified abdominal pain
CPT/HCPCS: 76700

== ENCOUNTER 2024-02-25 01:31 | Emergency (ER) | payer MEDICARE, OTHER ==
[2024-02-25 02:03] VITALS: RESP 18
[2024-02-25] MEDS: diphenhydrAMINE 50 MG/ML 1 ML VIAL IVP STA (04:10)
[2024-02-25] MEDS: METOCLOPRAMIDE 5 MG/ML 2 ML VIAL IVP STA (04:12)
[2024-02-25] MEDS: KETOROLAC 15 MG/ML 1 ML VIAL IVP STA (04:15)
--- NOTE | 2024-02-25 05:43 | ED ---
Headache HPI - General Chief Complaint: Headache Stated Complaint: Migraine Time Seen by Provider: 02/25/24 03:11 Mode of arrival: ambulatory Limitations: no limitations - History of Present Illness Initial Comments: This patient is a 53-year-old woman with history of headaches who presents with which she is describing is one of her usual migraine headaches. The patient states she did try home medications without relief. She is having associated nausea and vomiting. She states this is not the worst headache of life. No fever or neck stiffness. No neurologic symptoms. MD Complaint: headache -: days(s) Onset Description: gradual Severity: severe Quality: aching Consistency: constant Improves With: nothing Worsens With: none Context: occurred at rest Associated Symptoms: nausea, vomiting - Related Data Home Medications Medication Instructions Recorded Confirmed Albuterol Sulfate [Albuterol 2 puff INHALATION RT-Q6H PRN 11/15/22 12/19/23 Sulfate Hfa] Apixaban [Eliquis] 5 mg PO BID 11/15/22 12/19/23 Atorvastatin Calcium [Lipitor] 40 mg PO DAILY 11/15/22 12/19/23 Insulin Aspart [NovoLOG Flexpen] See Protocol SQ AC-TID PRN 11/15/22 12/19/23 Magnesium Oxide 400 mg PO DAILY 11/15/22 12/19/23 Montelukast Sodium [Singulair] 10 mg PO HS 11/15/22 12/19/23 Nitroglycerin Sl Tabs [Nitrostat] 0.4 mg SUBLINGUAL Q5M PRN 11/15/22 12/19/23 Omeprazole 40 mg PO BID 11/15/22 12/19/23 methocarbamoL [Robaxin] 500 mg PO TID PRN 11/15/22 12/19/23 Multivitamins, Thera [Multivitamin 1 tab PO DAILY 02/28/23 12/19/23 (formulary)] Dulaglutide [Trulicity] 4.5 mg SQ VICTORIA 10/09/23 12/19/23 Famotidine [Pepcid] 20 mg PO BID 10/09/23 12/19/23 Fluticasone Nasal Clarence [Flonase 1 spray EA NOSTRIL DAILY 10/09/23 12/19/23 Nasal Clarence] Fluticasone Propion/Salmeterol 1 puff INHALATION RT-BID 10/09/23 12/19/23 [Fluticasone-Salmeterol 100-50] Furosemide [Lasix] 20 mg PO DAILY 10/09/23 12/19/23 Ipratropium-Albuterol Nebulize 3 ml INHALATION RT-QID PRN 10/09/23 12/19/23 [Duoneb 0.5 mg-3 mg/3 ml Soln] Prochlorperazine [Compazine] 5 mg PO BID PRN 10/09/23 12/19/23 clonazePAM [KlonoPIN] 1 mg PO BID 11/19/23 12/19/23 Ranolazine [Ranexa] 500 mg PO BID 11/28/23 12/19/23 Insulin Detemir [Levemir Flexpen] 40 units SQ DAILY 12/19/23 12/19/23 Isosorbide Mononitrate ER [Imdur] 60 mg PO DAILY 12/19/23 12/19/23 Previous Rx's Medication Instructions Recorded Diltiazem Cd [Cardizem CD] 180 mg PO DAILY #30 cap 11/19/23 Acetaminophen Tab [Tylenol] 650 mg PO Q6HR PRN tab 11/30/23 Aspirin 81 mg PO DAILY #30 tab 11/30/23 DULoxetine HCL [Cymbalta] 30 mg PO HS #30 cap 12/20/23 [place] Carbonate 150 mg PO BID #60 cap 12/20/23 traZODone HCL [Desyrel] 50 mg PO HS PRN #30 tab 12/20/23 Allergies Allergy/AdvReac Type Severity Reaction Status Date / Time adhesive Allergy red skin Verified 02/25/24 01:38 trimethobenzamide Allergy Rash/Hives Verified 02/25/24 01:38 [From Tigan] vancomycin Allergy Rash/Hives Verified 02/25/24 01:38 Review of Systems ROS Statement: Those systems with pertinent positive or pertinent negative responses have been documented in the HPI. ROS Other: All systems not noted in ROS Statement are negative. Constitutional: Denies: fever, chills Eyes: Denies: vision change ENT: Denies: ear pain, hearing loss, congestion Respiratory: Denies: cough, dyspnea Cardiovascular: Denies: chest pain, palpitations, syncope Gastrointestinal: Reports: nausea, vomiting. Denies: abdominal pain, diarrhea, hematemesis Genitourinary: Denies: dysuria, hematuria Musculoskeletal: Denies: back pain Skin: Denies: rash Neurological: Reports: headache. Denies: weakness, numbness, confusion Past Medical History Past Medical History: Asthma, Chest Pain / Angina, CVA/TIA, Diabetes Mellitus, Deep Vein Thrombosis (DVT), Fibromyalgia, GERD/Reflux, Hyperlipidemia, Hypertension, Liver Disease, Myocardial Infarction (ME), Pulmonary Embolus (PE) Additional Past Medical History / Comment(s): fibomyalgia, light weakness on left after stroke coming back. mild ME from EKG unknown time. will test for Sleep apnea. has scd at home. recent blood in stools. non alcoholic fatty liver,, diverticulosis. Last Myocardial Infarction Date:: unk History of Any Multi-Drug Resistant Organisms: C-DIFF Date of last positivie culture/infection: 2019 MDRO Source:: stool Past Surgical History: Appendectomy, Cholecystectomy, Hysterectomy, Orthopedic Surgery Additional Past Surgical History / Comment(s): left knee replaced. left rotator cuff repair . rt hip stretched bursa. colonoscopies, laproscopic surgery to remove abdominal adhesions, left femur sx Past Anesthesia/Blood Transfusion Reactions: Postoperative Nausea & Vomiting (PONV) Additional Past Anesthesia/Blood Transfusion Reaction / Comment(s): with lap procedure had a hard time waking up. Past Psychological History: Bipolar, Depression Smoking Status: Never smoker Past Alcohol Use History: None Reported Past Drug Use History: Marijuana - Past Family History Mother Family Medical History: Cancer Additional Family Medical History / Comment(s): uterine Father Family Medical History: Cancer Additional Family Medical History / Comment(s): lung General Exam Limitations: no limitations General appearance: alert, in no apparent distress Head exam: Present: atraumatic, normocephalic Eye exam: Present: normal appearance, PERRL, EOMI. Absent: scleral icterus, conjunctival injection ENT exam: Present: normal oropharynx Neck exam: Present: normal inspection, full ROM. Absent: tenderness, meningismus Respiratory exam: Present: normal lung sounds bilaterally. Absent: respiratory distress, wheezes, rales, rhonchi, stridor Cardiovascular Exam: Present: regular rate, normal rhythm, normal heart sounds. Absent: systolic murmur, diastolic murmur, rubs, gallop GI/Abdominal exam: Present: soft. Absent: distended, tenderness, guarding, rebound Extremities exam: Present: normal inspection, normal capillary refill. Absent: pedal edema, calf tenderness Neurological exam: Present: alert, oriented X3, CN II-XII intact. Absent: motor sensory deficit Skin exam: Present: warm, dry, intact, normal color. Absent: rash Course Vital Signs 02/25/24 02/25/24 01:36 06:08 Temperature 97.8 F 97.6 F Pulse Rate 81 72 Respiratory 18 18 Rate Blood Pressure 144/80 151/71 O2 Sat by Pulse 96 97 Oximetry Medical Decision Making - Medical Decision Making Was pt. sent in by a medical professional or institution (, PA, SALES FLOOR TEAM LEADER, urgent care, hospital, or senior living...) When possible be specific @ -[No] Did you speak to anyone other than the patient for history (EMS, parent, family, police, friend...)? What history was obtained from this source @ -[No] Did you review nursing and triage notes (agree or disagree)? Why? @ -[I reviewed and agree with nursing and triage notes] Were old charts reviewed (outside hosp., previous admission, EMS record, old EKG, old radiological studies, urgent care reports/EKG's, senior living records)? Report findings @ -[No old charts were reviewed] Differential Diagnosis (chest pain, altered mental status, abdominal pain women, abdominal pain men, vaginal bleeding, weakness, fever, dyspnea, syncope, headache, dizziness, GI bleed, back pain, seizure, CVA, palpatations, mental health, musculoskeletal)? @ -[Differential Headache: Migraine, tension, cluster, carbon monoxide, central venous thrombosis, pension karma temporal arteritis, acute closure glaucoma, intercranial hemorrhage, mastoiditis, sinusitis, head injury, this is not meant to be an all-inclusive list. EKG interpreted by me (3pts min.). @ -[As above] X-rays interpreted by me (1pt min.). @ -[None done] CT interpreted by me (1pt min.). @ -[None done] U/S interpreted by me (1pt. min.). @ -[None done] What testing was considered but not performed or refused? (CT, X-rays, U/S, labs)? Why? @ -[None] What meds were considered but not given or refused? Why? @ -[None] Did you discuss the management of the patient with other professionals (p [employer] i.e. , PA, SALES FLOOR TEAM LEADER, lab, RT, psych nurse, social worker masters, straight cutter machine, teacher, bank secrecy act officer, showcase trimmer)? Give summary @ -[No] Was smoking cessation discussed for >3mins.? @ -[No] Was critical care preformed (if so, how long)? @ -[No] Were there social determinants of health that impacted care today? How? (Homelessness, low income, unemployed, alcoholism, drug addiction, transportatio n, low edu. Level, literacy, decrease access to med. care, fpc, rehab)? @ -[No] Was there de-escalation of care discussed even if they declined (Discuss DNR or withdrawal of care, Hospice)? DNR status @ -[No] What co-morbidities impacted this encounter? (DM, HTN, Smoking, COPD, CAD, Cancer, CVA, ARF, Chemo, Hep., AIDS, mental health diagnosis, sleep apnea, morbid obesity)? @ -[History of headaches Was patient admitted / discharged? Hospital course, mention meds given and route, prescriptions, significant lab abnormalities, going to OR and other pertinent info. @ -[Patient is a 53-year-old woman with history of headaches having a headache that is typical for her but unrelieved with home medications. She did have relief of symptoms here. There are no concerning features to this headache. Discussed appropriate further care and follow-up as well as return parameters. Undiagnosed new problem with uncertain prognosis? @ -[No] Drug Therapy requiring intensive monitoring for toxicity (Heparin, Nitro, Insulin, Cardizem)? @ -[No] Were any procedures done? @ -[No] Diagnosis/symptom? @ -[Acute headache Acute, or Chronic, or Acute on Chronic? @ -[Acute Uncomplicated (without systemic symptoms) or Complicated (systemic symptoms)? @ -[Uncomplicated Side effects of treatment? @ -[No] Exacerbation, Progression, or Severe Exacerbation? @ -[No] Poses a threat to life or bodily function? How? (Chest pain, [place], ME, pneumonia, PE, COPD, DKA, ARF, appy, cholecystitis, CVA, Diverticulitis, Homicidal, Suicidal, threat to staff... and all critical care pts) @ -[No] Disposition Clinical Impression: Headache Disposition: HOME SELF-CARE Condition: Good Instructions (If sedation given, give patient instructions): Acute Headache (ED) Is patient prescribed a controlled substance at d/c from ED?: No Referrals: Brayden Valdovinos DO [Primary Care Provider] - 1-2 days
[2024-02-25 06:47] VITALS: BP 151/71; PULSE 72; TEMP 97.6
== END 2024-02-25 06:08 | disposition home or self-care (01) ==
LOC: EC 01:31
DX: R51.9 Headache, unspecified (principal); Z88.1 Allergy status to other antibiotic agents; Z88.8 Allergy status to other drugs, medicaments and biological substances; Z91.09 Other allergy status, other than to drugs and biological substances; Z86.73 Personal history of transient ischemic attack (TIA), and cerebral infarction without residual deficits
CPT/HCPCS: 99283; 96374; 96375 ×2; J1200; J2765; J1885

== ENCOUNTER 2024-03-15 11:17 | Observation (INO) | payer MEDICARE, OTHER ==
[2024-03-15] MEDS: MORPHINE SULFATE 4 MG/ML SYRINGE IM STA (12:58)
--- NOTE | 2024-03-15 13:07 | ED ---
General Adult HPI - General Source: patient Mode of arrival: ambulatory Limitations: no limitations <Babar Oden - Last Filed: 03/15/24 15:44> <Papo Bishop - Last Filed: 03/15/24 21:39> - General Chief complaint: Extremity Injury, Lower Stated complaint: L leg pain Time Seen by Provider: 03/15/24 12:32 - History of Present Illness Initial comments: Dictation was produced using [employer] dictation software. please excuse any grammatical, word or spelling errors. Chief Complaint: 53-year-old female presents to the emergency department for atraumatic left knee pain and constipation History of Present Illness: Patient 53-year-old female she has multiple comorbidities. Patient complaining of 2 to 3 days of left knee pain. Patient has history of left total knee replacement performed in [place] years ago. Patient also has not had a satisfying bowel movement in over a week. Patient tried to feel through her anus and felt hard stool. Patient has been passing gas. Denies any nausea. She does complain of some lower abdominal pain. Denies any fever, chills or night sweats. Patient takes Eliquis for stroke and DVT The ROS documented in this emergency department record has been reviewed and confirmed by me. Those systems with pertinent positive or negative responses have been documented in the HPI. All other systems are other negative and/or noncontributory. (Babar Oden) - Related Data Home Medications Medication Instructions Recorded Confirmed Albuterol Sulfate [Albuterol 2 puff INHALATION RT-Q6H PRN 11/15/22 03/15/24 Sulfate Hfa] Apixaban [Eliquis] 5 mg PO BID 11/15/22 03/15/24 Atorvastatin Calcium [Lipitor] 40 mg PO DAILY 11/15/22 03/15/24 Insulin Aspart [NovoLOG Flexpen] See Protocol SQ AC-TID PRN 11/15/22 03/15/24 Magnesium Oxide 400 mg PO DAILY 11/15/22 03/15/24 Montelukast Sodium [Singulair] 10 mg PO HS 11/15/22 03/15/24 Dulaglutide [Trulicity] 4.5 mg SQ VICTORIA 10/09/23 03/15/24 clonazePAM [KlonoPIN] See Taper PO DIRECTED 11/19/23 03/15/24 Ranolazine [Ranexa] 500 mg PO BID 11/28/23 03/15/24 Isosorbide Mononitrate ER [Imdur] 60 mg PO DAILY 12/19/23 03/15/24 Empagliflozin [Jardiance] 25 mg PO DAILY 03/15/24 03/15/24 Insulin Degludec [Tresiba 40 units SQ DAILY 03/15/24 03/15/24 Flextouch U-100 Pen] Nystatin 100,000Unit/gm Cream 1 applic TOPICAL BID PRN 03/15/24 03/15/24 [Mycostatin Cream] Ondansetron Odt [Zofran Odt] 4 mg PO Q6H PRN 03/15/24 03/15/24 dilTIAZem HCL [Tiadylt ER] 180 mg PO DAILY 03/15/24 03/15/24 Previous Rx's Medication Instructions Recorded Aspirin 81 mg PO DAILY #30 tab 11/30/23 [place] Carbonate 150 mg PO BID #60 cap 12/20/23 traZODone HCL [Desyrel] 50 mg PO HS PRN #30 tab 12/20/23 Allergies Allergy/AdvReac Type Severity Reaction Status Date / Time adhesive Allergy red skin Verified 03/15/24 17:46 trimethobenzamide Allergy Rash/Hives Verified 03/15/24 17:46 [From Tig] vancomycin Allergy Rash/Hives Verified 03/15/24 17:46 Review of Systems ROS Other: All systems not noted in ROS Statement are negative. <Babar Oden - Last Filed: 03/15/24 15:44> ROS Other: All systems not noted in ROS Statement are negative. <Papo Bishop - Last Filed: 03/15/24 21:39> ROS Statement: Those systems with pertinent positive or pertinent negative responses have been documented in the HPI. Past Medical History Past Medical History: Asthma, Chest Pain / Angina, CVA/TIA, Diabetes Mellitus, Deep Vein Thrombosis (DVT), Fibromyalgia, GERD/Reflux, Hyperlipidemia, Hypertension, Liver Disease, Myocardial Infarction (CO), Pulmonary Embolus (PE) Additional Past Medical History / Comment(s): fibomyalgia, light weakness on left after stroke coming back. mild CO from EKG unknown time. will test for Sleep apnea. has scd at home. recent blood in stools. non alcoholic fatty liver,, diverticulosis. Last Myocardial Infarction Date:: unk History of Any Multi-Drug Resistant Organisms: C-DIFF Date of last positivie culture/infection: 2019 MDRO Source:: stool Past Surgical History: Appendectomy, Cholecystectomy, Hysterectomy, Orthopedic Surgery Additional Past Surgical History / Comment(s): left knee replaced. left rotator cuff repair . rt hip stretched bursa. colonoscopies, laproscopic surgery to remove abdominal adhesions, left femur sx Past Anesthesia/Blood Transfusion Reactions: Postoperative Nausea & Vomiting (PONV) Additional Past Anesthesia/Blood Transfusion Reaction / Comment(s): with lap procedure had a hard time waking up. Past Psychological History: Bipolar, Depression Smoking Status: Never smoker Past Alcohol Use History: Rare Past Drug Use History: Marijuana - Past Family History Mother Family Medical History: Cancer Additional Family Medical History / Comment(s): uterine Father Family Medical History: Cancer Additional Family Medical History / Comment(s): lung <Babar Oden - Last Filed: 03/15/24 15:44> General Exam Limitations: no limitations <Babar Oden - Last Filed: 03/15/24 15:44> - General Exam Comments Initial Comments: PHYSICAL EXAM: General Impression: Alert and oriented x3, not in acute distress HEENT: Normocephalic atraumatic, extra-ocular movements intact, pupils equal and reactive to light bilaterally, mucous membranes moist. Cardiovascular: Heart regular rate and rhythm Chest: Able to complete full sentences, no retractions, no tachypnea Abdomen: abdomen soft, non-tender, non-distended, no organomegaly Musculoskeletal: Pulses present and equal in all extremities, no peripheral edema Motor: no focal deficits noted Neurological: CN II-XII grossly intact, no focal motor or sensory deficits noted Skin: Intact with no visualized rashes Psych: Normal affect and mood Rectal exam: Palpable stool in the rectal vault, mild gross bleeding Left knee: Surgical scar clean dry and intact. Limited range of flexion (Babar Oden) Course Vital Signs 03/15/24 03/15/24 03/15/24 11:30 14:47 16:07 Temperature 97.6 F 98.1 F Pulse Rate 104 H 72 71 Respiratory 18 18 18 Rate Blood Pressure 145/89 121/65 116/74 O2 Sat by Pulse 97 99 96 Oximetry 03/15/24 17:35 Temperature 98.0 F Pulse Rate 76 Respiratory 18 Rate Blood Pressure 126/68 O2 Sat by Pulse 97 Oximetry Medical Decision Making - Lab Data Result diagrams: 03/15/24 13:06 03/15/24 14:48 <Babar Oden - Last Filed: 03/15/24 15:44> - Lab Data Result diagrams: 03/15/24 13:06 03/15/24 14:48 <Papo Bishop - Last Filed: 03/15/24 21:39> - Medical Decision Making Was pt. sent in by a medical professional or institution (, PA, SMOKE EATER, urgent care, hospital, or [facility]...) When possible be specific @ -No Did you speak to anyone other than the patient for history (EMS, parent, family, police, friend...)? What history was obtained from this source @ -No Did you review nursing and triage notes (agree or disagree)? Why? @ -I reviewed and agree with nursing and triage notes Were old charts reviewed (outside hosp., previous admission, EMS record, old EKG, old radiological studies, urgent care reports/EKG's, [facility] records)? Report findings @ -No old charts were reviewed Differential Diagnosis (chest pain, altered mental status, abdominal pain women, abdominal pain men, vaginal bleeding, musculoskeletal, weakness, fever, dyspnea, syncope, headache, dizziness, GI bleed, back pain, seizure, CVA, palpatations, mental health)? @ -Differential Abdominal Pain Women: Appendicitis, Cholecystitis, diverticulosis, ischemic bowel, pancreatitis, hepatitis, UTI, gastroenteritis, AAA, incarcerated hernia, bowel obstruction, constipation, inflammatory bowel, hepatitis, peptic ulcer disease, splenic infarction, perforated viscus, vulvitis, ovarian torsion, PID, kidney stone, placenta abruption, this is not meant to be an all-inclusive list EKG interpreted by me (3pts min.). @ -None done X-rays interpreted by me (1pt min.). @ -Knee x-ray shows no acute processes CT interpreted by me (1pt min.). @ -CT of the abdomen pelvis is pending U/S interpreted by me (1pt. min.). @ -None done What testing was considered but not performed or refused? (CT, X-rays, U/S, labs)? Why? @ -None What meds were considered but not given or refused? Why? @ -None Did you discuss the management of the patient with other professionals (tom cortes i.e. , PA, SMOKE EATER, lab, RT, psych nurse, high school social science teacher, heating mechanic, teacher, regulatory compliance officer, test case developer)? Give summary @ -No Was smoking cessation discussed for >3mins.? @ -No Was critical care preformed (if so, how long)? @ -No Were there social determinants of health that impacted care today? How? (Homelessness, low income, unemployed, alcoholism, drug addiction, transportation, low edu. Level, literacy, decrease access to med. care, [facility], rehab)? @ -No Was there de-escalation of care discussed even if they declined (Discuss DNR or withdrawal of care, Hospice)? DNR status @ -No What co-morbidities impacted this encounter? (DM, HTN, Smoking, COPD, CAD, Cancer, CVA, ARF, Chemo, Hep., AIDS, mental health diagnosis, sleep apnea, morbid obesity)? @ -None Was patient admitted / discharged? Hospital course, mention meds given and route, prescriptions, significant lab abnormalities, going to OR and other pertinent info. @ -53-year-old female presents emergency department for abdominal pain, constipation and left knee pain. Her pain is reportedly very significant. She has got some palpatory tenderness to the lower abdomen. Rectal exam was positive for stool in the rectal vault. The stool felt too deep for manual disimpaction. Vital signs upon arrival are within acceptable limits. Laboratory evaluation obtained. Hemoglobin stable. No leukocytosis. Coag panel is unremarkable. Metabolic panel showed a initial potassium of 5.9 with a repeat of 4.4. So occult blood is positive. Patient given enema along with MiraLAX. She was was unsuccessful in having a bowel movement. Her pain seems to be pretty significant. Patient sent for CT scan of the abdomen pelvis. Patient given 2 rounds of IV analgesics. Patient care signed out to Dr. Bishop at 3:44 PM for further care. Undiagnosed new problem with uncertain prognosis? @ -No Drug Therapy requiring intensive monitoring for toxicity (Heparin, Nitro, Insulin, Cardizem)? @ -No Were any procedures done? @ -No Diagnosis/symptom? Acute, or Chronic, or Acute on Chronic? Uncomplicated (without systemic symptoms) or Complicated (systemic symptoms)? @ -Abdominal pain Side effects of treatment? @ -No Exacerbation, Progression, or Severe Exacerbation? @ -No Poses a threat to life or bodily function? How? (Chest pain, USA, CO, pneumonia, PE, COPD, DKA, ARF, appy, cholecystitis, CVA, Diverticulitis, Homicidal, Suicidal, threat to staff... and all critical care pts) @ -yes (Babar Oden) Patient signed out to me pending results of CT imaging. Briefly patient o nehemiah presented for knee pain. Imaging unremarkable. Also was complaining of abdominal pain with no significant bowel movement for the last week. Labs relatively unremarkable. CT of the abdomen pelvis as interpreted by myself reveals a possible rectal mass versus stool as well as constipation. I did the patient. She has received multiple doses of pain meds. I did recommend observation admission. She was in agreement this plan. I spoke with Dr. Roberson the on-call surgeon who requested patient be admitted to medicine. He will evaluate the patient. Patient made n.p.o. in the event that she does require some form of surgical intervention. Patient placed on IV fluids. We will attempt additional enemas. I discussed the patient with medicineJOON of [facility] who accepted the ad mission. Diagnosis/symptom? @ -Constipation, possible rectal mass Acute, or Chronic, or Acute on Chronic? @ -Acute Uncomplicated (without systemic symptoms) or Complicated (systemic symptoms)? @ -Complicated Side effects of treatment? @ -None Exacerbation, Progression, or Severe Exacerbation] @ -No Poses a threat to life or bodily function? @ -Possibly, yes (Papo Bishop) - Lab Data Lab Results 03/15/24 03/15/24 03/15/24 Range/Units 13:06 13:06 13:06 WBC 5.6 (3.8-10.6) k/uL RBC 5.37 (3.80-5.40) m/uL Hgb 15.6 (11.4-16.0) gm/dL Hct 48.9 H (34.0-46.0) % MCV 91.0 (80.0-100.0) fL MCH 29.0 (25.0-35.0) pg MCHC 31.8 (31.0-37.0) g/dL RDW 13.3 (11.5-15.5) % Plt Count 221 (150-450) k/uL MPV 7.8 Neutrophils % 67 % Lymphocytes % 24 % Monocytes % 5 % Eosinophils % 2 % Basophils % 1 % Neutrophils # 3.8 (1.3-7.7) k/uL Lymphocytes # 1.4 (1.0-4.8) k/uL Monocytes # 0.3 (0-1.0) k/uL Eosinophils # 0.1 (0-0.7) k/uL Basophils # 0.0 (0-0.2) k/uL PT (10.0-12.5) sec INR (<1.2) APTT (22.0-30.0) sec Sodium 143 (137-145) mmol/L Potassium 5.9 H (3.5-5.1) mmol/L Chloride 108 H (98-107) mmol/L Carbon Dioxide 28 (22-30) mmol/L Anion Gap 7 mmol/L BUN 12 (7-17) mg/dL Creatinine 0.75 (0.52-1.04) mg/dL Est GFR (CKD-EPI)AfAm >90 (>60 ml/min/1.73 sqM) Est GFR (CKD-EPI)NonAf >90 (>60 ml/min/1.73 sqM) Glucose 93 (74-99) mg/dL POC Glucose (mg/dL) (70-110) mg/dL POC Glu Transportation Modeler ID Calcium 9.8 (8.4-10.2) mg/dL Stool Occult Blood Positive H (Negative) Blood Type Blood Type Recheck Bld Type Recheck Status Antibody Screen Spec Expiration Date 03/15/24 03/15/24 03/15/24 Range/Units 13:06 13:06 14:48 WBC (3.8-10.6) k/uL RBC (3.80-5.40) m/uL Hgb (11.4-16.0) gm/dL Hct (34.0-46.0) % MCV (80.0-100.0) fL MCH (25.0-35.0) pg MCHC (31.0-37.0) g/dL RDW (11.5-15.5) % Plt Count (150-450) k/uL MPV Neutrophils % % Lymphocytes % % Monocytes % % Eosinophils % % Basophils % % Neutrophils # (1.3-7.7) k/uL Lymphocytes # (1.0-4.8) k/uL Monocytes # (0-1.0) k/uL Eosinophils # (0-0.7) k/uL Basophils # (0-0.2) k/uL PT 13.7 H (10.0-12.5) sec INR 1.3 H (<1.2) APTT 33.8 H (22.0-30.0) sec Sodium (137-145) mmol/L Potassium 4.4 (3.5-5.1) mmol/L Chloride (98-107) mmol/L Carbon Dioxide (22-30) mmol/L Anion Gap mmol/L BUN (7-17) mg/dL Creatinine (0.52-1.04) mg/dL Est GFR (CKD-EPI)AfAm (>60 ml/min/1.73 sqM) Est GFR (CKD-EPI)NonAf (>60 ml/min/1.73 sqM) Glucose (74-99) mg/dL POC Glucose (mg/dL) (70-110) mg/dL POC Glu Transportation Modeler ID Calcium (8.4-10.2) mg/dL Stool Occult Blood (Negative) Blood Type O Negative Blood Type Recheck O Neg Bld Type Recheck Status No Antibody Screen NEGATIVE Spec Expiration Date 03/18/2024 - 230503/15/24 Range/Units 16:45 WBC (3.8-10.6) k/uL RBC (3.80-5.40) m/uL Hgb (11.4-16.0) gm/dL Hct (34.0-46.0) % MCV (80.0-100.0) fL MCH (25.0-35.0) pg MCHC (31.0-37.0) g/dL RDW (11.5-15.5) % Plt Count (150-450) k/uL MPV Neutrophils % % Lymphocytes % % Monocytes % % Eosinophils % % Basophils % % Neutrophils # (1.3-7.7) k/uL Lymphocytes # (1.0-4.8) k/uL Monocytes # (0-1.0) k/uL Eosinophils # (0-0.7) k/uL Basophils # (0-0.2) k/uL PT (10.0-12.5) sec INR (<1.2) APTT (22.0-30.0) sec Sodium (137-145) mmol/L Potassium (3.5-5.1) mmol/L Chloride (98-107) mmol/L Carbon Dioxide (22-30) mmol/L Anion Gap mmol/L BUN (7-17) mg/dL Creatinine (0.52-1.04) mg/dL Est GFR (CKD-EPI)AfAm (>60 ml/min/1.73 sqM) Est GFR (CKD-EPI)NonAf (>60 ml/min/1.73 sqM) Glucose (74-99) mg/dL POC Glucose (mg/dL) 82 (70-110) mg/dL POC Glu Transportation Modeler ID Shayne Ho Calcium (8.4-10.2) mg/dL Stool Occult Blood (Negative) Blood Type Blood Type Recheck Bld Type Recheck Status Antibody Screen Spec Expiration Date Disposition <Babar Oden - Last Filed: 03/15/24 15:44> Time of Disposition: 17:22 <Papo Bishop - Last Filed: 03/15/24 21:39> Clinical Impression: Abdominal pain, Constipation, Rectal mass Disposition: ADMITTED IP TO THIS [facility] Condition: Stable
--- NOTE | 2024-03-15 13:22 | XR ---
EXAMINATION TYPE: XR knee complete LT DATE OF EXAM: 03/15/2024 CLINICAL HISTORY: pain TECHNIQUE: Three views of the left knee are obtained. COMPARISON: None. FINDINGS: There is no acute fracture/dislocation. Total knee arthroplasty change. Nodularity right w ith healed fracture distal femur. The overlying soft tissue appears unremarkable. IMPRESSION: There is no acute fracture or dislocation ICD 10 NO FRACTURE, INITIAL EVALUATION
[2024-03-15 13:45] LABS: Basophils % (A) 1 %; Eosinophils # (A) 0.1 k/uL (0-0.7); Eosinophils % (A) 2 %; HCT 48.9 % (34.0-46.0); HGB 15.6 gm/dL (11.4-16.0); Lymphocytes # (A) 1.4 k/uL (1.0-4.8); Lymphocytes % (A) 24 %; MCHC 31.8 g/dL (31.0-37.0); Mean Platelet Volume 7.8; Monocytes # (A) 0.3 k/uL (0-1.0); Monocytes % (A) 5 %; Neutrophils # (A) 3.8 k/uL (1.3-7.7); Neutrophils % (A) 67 %; Platelet Count 221 k/uL (150-450); RBC 5.37 m/uL (3.80-5.40); RDW 13.3 % (11.5-15.5); WBC 5.6 k/uL (3.8-10.6)
[2024-03-15 13:54] LABS: INR 1.3 (<1.2); Partial Thromboplastin Time 33.8 sec (22.0-30.0); Prothrombin Time 13.7 sec (10.0-12.5)
[2024-03-15 13:56] LABS: African American GFR (CKD) >90 (>60 ml/min/1.73 sqM); Anion Gap 7 mmol/L; Blood Urea Nitrogen 12 mg/dL (7-17); Calcium 9.8 mg/dL (8.4-10.2); Carbon Dioxide 28 mmol/L (22-30); Chloride 108 mmol/L (98-107); Glucose 93 mg/dL (74-99); Non-African American GFR(CKD) >90 (>60 ml/min/1.73 sqM); Potassium 5.9 mmol/L (3.5-5.1); Sodium 143 mmol/L (137-145)
[2024-03-15] MEDS: polyethylene glycoL 3350 17 GM POWD.PACK PO STA (14:13)
[2024-03-15] MEDS: MORPHINE SULFATE 4 MG/ML SYRINGE IVP STA (14:48)
--- NOTE | 2024-03-15 16:19 | CT ---
EXAMINATION TYPE: CT abdomen pelvis w con DATE OF EXAM: 03/15/2024 COMPARISON: 12/20/2023 HISTORY: lower abd pain, constipation CT DLP: 1920.8 mGycm Automated exposure control for dose reduction was used. TECHNIQUE: Helical acquisition of images was performed from the lung bases through the pelvis. CONTRAST: Performed without Oral Contrast and with IV Contrast, patient injected with 100ml mL of Isovue 300. FINDINGS: The lung bases are clear. There is surgical absence of the gallbladder. There is no biliary ductal dilatation. There is no focal mass or organomegaly involving the liver, pancreas, spleen or adrenal glands. There is no solid renal mass or hydronephrosis and there is homogeneous contrast enhancement of the r enal parenchyma. The caliber the abdominal aorta is normal is no retroperitoneal adenopathy or hemorr michael. Along the right anterolateral wall of the rectum there is a 2.5 cm soft tissue density which could st ool but a rectal mass cannot be excluded. There is a large amount of stool proximal to this region in the sigmoid colon. There is no bowel obstruction. There are no inflammatory changes within the mesen severo. There is no free intraperitoneal air or fluid. No pelvic mass, free fluid, abscess or adenopathy. The osseous structures and soft tissues are intact. IMPRESSION: 1. Questionable rectal mass versus stool in the right anterolateral lateral aspect of the rectum and further evaluation is warranted. 2. Large amount of stool in the colon particularly in the sigmoid colon proximal to the area in quest ion within the rectum.
[2024-03-15 16:58] LABS: Glucose,Whole Blood 82 mg/dL (70-110)
[2024-03-15] MEDS ORDERED: NALOXONE 0.4 MG/ML 1 ML VIAL IV PRN (17:30)
[2024-03-15] MEDS ORDERED: ONDANSETRON 4 MG/2 ML VIAL IVP PRN (17:30)
[2024-03-15] MEDS: SODIUM CHLORIDE 0.9% 1,000 ML IV STA (17:31)
[2024-03-15] MEDS: MORPHINE SULFATE 4 MG/ML SYRINGE IVP PRN (17:33)
[2024-03-15] MEDS: ONDANSETRON 4 MG/2 ML VIAL IVP STA (17:36)
[2024-03-15 23:13] LABS: Glucose,Whole Blood 132 mg/dL (70-110)
[2024-03-16] MEDS ORDERED: DEXTROSE 50% SYRINGE 50 ML IVP PRN ×2 (00:07)
[2024-03-16] MEDS: METOCLOPRAMIDE 5 MG/ML 2 ML VIAL IVP PRN (00:35)
[2024-03-16] MEDS ORDERED: traZODone HCL 50 MG TAB PO PRN (01:00)
[2024-03-16] MEDS: INSULIN ASPART (NovoLOG) 100 UNIT/ML VIAL SQ SCH (01:16)
[2024-03-16 05:33] LABS: Glucose,Whole Blood 71 mg/dL (70-110)
[2024-03-16] MEDS: LITHIUM CARBONATE 150 MG CAP PO SCH (09:27)
[2024-03-16] MEDS: RANOLAZINE 500 MG TAB.ER.12H PO SCH (09:27)
[2024-03-16] MEDS: PANTOPRAZOLE 40 MG/10 ML VIAL IV SCH (09:27)
[2024-03-16 10:12] LABS: Glucose,Whole Blood 82 mg/dL (70-110)
[2024-03-16 10:32] LABS: Basophils # (A) 0.03 X 10*3/uL (0.00-0.10); Basophils % (A) 0.5 %; Eosinophils # (A) 0.12 X 10*3/uL (0.04-0.35); HCT 46.6 % (37.2-46.3); HGB 14.6 g/dL (12.0-15.0); Lymphocytes # (A) 1.53 X 10*3/uL (0.90-5.00); MCH 28.9 pg (27.0-32.0); MCHC 31.3 g/dL (32.0-37.0); MCV 92.3 FL (80.0-97.0); Mean Platelet Volume 10.5 FL (9.5-12.2); Monocytes # (A) 0.47 X 10*3/uL (0.20-1.00); Monocytes % (A) 7.7 %; NRBC Per 100 WBC 0 X 10*3/uL (0.00-0.01); Neutrophils # (A) 3.96 X 10*3/uL (1.80-7.70); Neutrophils % (A) 64.6 %; Platelet Count 230 X 10*3/uL (140-440); RBC 5.05 X 10*6/uL (4.10-5.20); RDW 13.2 % (11.5-14.5); WBC 6.12 X 10*3/uL (4.50-10.00)
[2024-03-16 11:04] LABS: ALT 20 U/L (8-44); AST 16 U/L (13-35); Albumin 4.2 g/dL (3.8-4.9); Albumin/Globulin Ratio 2.47 Ratio (1.60-3.17); Alkaline Phosphatase 148 U/L (41-126); BUN/Creat Ratio 12.88 Ratio (12.00-20.00); Blood Urea Nitrogen 10.3 mg/dL (9.0-27.0); Calcium 9.3 mg/dL (8.7-10.3); Carbon Dioxide 25.7 mmol/L (21.6-31.8); Chloride 108 mmol/L (96-109); Globulin 1.7 g/dL (1.6-3.3); Glucose 90 mg/dL (70-110); Sodium 145 mmol/L (135-145); Total Bilirubin 0.4 mg/dL (0.3-1.2); Total Protein 5.9 g/dL (6.2-8.2)
--- NOTE | 2024-03-16 12:42 | P.GSCN ---
History of Present Illness Consult date: 03/16/24 History of present illness: CHIEF COMPLAINT: Abdominal pain HISTORY OF PRESENT ILLNESS: This is a 53-year-old female who presented to the hospital with complaints of constipation and recurrent left knee pain. Patient reports that she did not have a bowel movement for 1 week. Her pain was across the lower abdomen. Patient reports that she did try to manually disimpact herself and could feel a stool ball. Patient did receive enemas in the ER. She had a large soft stool. She does complain of rectal discomfort and lower abdominal pain. In the ER they had reported on exam palpable stool in the rectal vault with mild gross bleeding. She had a CT scan abdomen and pelvis that reported questionable rectal mass versus stool in the right anterior lateral aspect of the rectum. Large amount of stool in the colon particularly in the sigmoid colon. Patient reports her last colonoscopy was about a year ago and reports no abnormality. Patient's past surgical history includes hemorrhoidectomy, hysterectomy and lysis of adhesions. She is on Eliquis for CVA and DVT. Last dose of Eliquis was yesterday morning. PAST MEDICAL HISTORY: See below PAST SURGICAL HISTORY: See below MEDICATIONS: See below ALLERGIES: See below SOCIAL HISTORY: No illicit drug use. REVIEW OF SYSTEMS: CONSTITUTIONAL: Denies fever or chills. HEENT: Denies blurred vision, vision changes, or eye pain. Denies hemoptysis CARDIOVASCULAR: Denies chest pain or pressure. RESPIRATORY: No shortness of breath. GASTROINTESTINAL: See HPI for pertinent findings HEMATOLOGIC: Denies bleeding disorders. GENITOURINARY: Denies any blood in urine or increased urinary frequency. SKIN: Denies pruitis. Denies rash. PHYSICAL EXAM: VITAL SIGNS: Reviewed GENERAL: Well-developed in no acute distress. HEENT: No sclera icterus. Extraocular movements grossly intact. Moist buccal mucosa. Head is atraumatic, normocephalic. No nasal drainage. ABDOMEN: Soft. Nondistended. Tenderness palpation of the lower abdomen Rectal exam: No fecal ball present. Small amount of soft stool present. No evidence of blood. External hemorrhoids noted. No palpable mass per this examiner NEUROLOGIC: Alert and oriented. Cranial nerves II through XII grossly intact. LABORATORY DATA: WBC 6.12 Hgb 14.6 platelets 230 Sodium 145 potassium is 5.0 creatinine 0.8 Stool for occult blood positive IMAGING: CT scan abdomen pelvis questionable rectal mass versus stool in the right anterior lateral aspect of the rectum and further evaluation is warranted. Large amount of stool in the colon particularly in the sigmoid colon proximal to the area of the question within the rectum. ASSESSMENT: 1. Abdominal pain 2. Constipation 3. Questionable rectal mass versus stool in the rectum noted on CT PLAN: -Further recommendations forthcoming per surgeon -Continue supportive care Physician Manager Collection note has been reviewed by physician. Signing provider agrees with the documented findings, assessment, and plan of care. I have personally seen and examined the patient, reviewed the [employer] /PAs history, exam and MDM and agree with the assessment and plan as written. Based on total visit time, I have performed more than 50% of the visit. As above: Patient with lower abdominal pain and constipation. Had some bleeding when trying to have a bowel movement yesterday. She has had multiple stools with the enemas that were provided. Patient does describe some rectal discomfort. Says it hurts to sit. No history of similar events. Rectal exam performed both by Salma and again by myself this afternoon reveals mild rectal tenderness. On my exam there is mild tenderness in the right posterior location. No purulence is noted by the patient or myself. No blood at this time. No impaction present. No palpable mass. Given the symptoms I do suspect the patient may have had a submucosal abscess in the distal anal rectal region. Begin antibiotics. Resume regular diet. May discharge if tolerates. Continue stool softeners. Discussed with patient that we would see her in the office setting in the next few weeks. Would consider flexible sigmoidoscopy if there remains any concern for possible mass however given the CAT scan appearance and rectal exam findings along with recent colonoscopy 1 year ago I feel this is highly unlikely. Past Medical History Past Medical History: Asthma, Chest Pain / Angina, CVA/TIA, Diabetes Mellitus, Deep Vein Thrombosis (DVT), Fibromyalgia, GERD/Reflux, Hyperlipidemia, Hypertension, Liver Disease, Myocardial Infarction ([place]), Pulmonary Embolus ([place]) Additional Past Medical History / Comment(s): fibomyalgia, light weakness on left after stroke coming back. mild [place] from EKG unknown time. recent blood in stools. non alcoholic fatty liver,, diverticulosis. Last Myocardial Infarction Date:: unk History of Any Multi-Drug Resistant Organisms: C-DIFF Year Discovered:: 2019 MDRO Source:: stool Past Surgical History: Appendectomy, Cholecystectomy, Hysterectomy, Orthopedic Surgery, Tonsillectomy Additional Past Surgical History / Comment(s): left knee replaced. left rotator cuff repair . rt hip stretched bursa. colonoscopies, laproscopic surgery to remove abdominal adhesions, left femur sx Past Anesthesia/Blood Transfusion Reactions: Postoperative Nausea & Vomiting (PONV) Additional Past Anesthesia/Blood Transfusion Reaction / Comm: with lap procedure had a hard time waking up. Past Psychological History: Bipolar, Depression Smoking Status: Never smoker Past Alcohol Use History: Rare Past Drug Use History: Marijuana Additional Drug Use History / Comment(s): marijuana vape pen. pt aware not to use 24 hrs before procedure. - Past Family History Mother Family Medical History: Cancer Additional Family Medical History / Comment(s): uterine Father Family Medical History: Cancer Additional Family Medical History / Comment(s): lung Medications and Allergies Home Medications Medication Instructions Recorded Confirmed Type Albuterol Sulfate [Albuterol 2 puff INHALATION RT-Q6H PRN 11/15/22 03/15/24 History Sulfate Hfa] Apixaban [Eliquis] 5 mg PO BID 11/15/22 03/15/24 History Atorvastatin Calcium [Lipitor] 40 mg PO DAILY 11/15/22 03/15/24 History Insulin Aspart [NovoLOG Flexpen] See Protocol SQ AC-TID PRN 11/15/22 03/15/24 History Magnesium Oxide 400 mg PO DAILY 11/15/22 03/15/24 History Montelukast Sodium [Singulair] 10 mg PO HS 11/15/22 03/15/24 History Dulaglutide [Trulicity] 4.5 mg SQ VICTORIA 10/09/23 03/15/24 History clonazePAM [KlonoPIN] See Taper PO DIRECTED 11/19/23 03/15/24 History Ranolazine [Ranexa] 500 mg PO BID 11/28/23 03/15/24 History Aspirin 81 mg PO DAILY #30 tab 11/30/23 03/15/24 Rx Isosorbide Mononitrate ER [Imdur] 60 mg PO DAILY 12/19/23 03/15/24 History [place] Carbonate 150 mg PO BID #60 cap 12/20/23 03/15/24 Rx traZODone HCL [Desyrel] 50 mg PO HS PRN #30 tab 12/20/23 03/15/24 Rx Empagliflozin [Jardiance] 25 mg PO DAILY 03/15/24 03/15/24 History Insulin Degludec [Tresiba 40 units SQ DAILY 03/15/24 03/15/24 History Flextouch U-100 Pen] Nystatin 100,000Unit/gm Cream 1 applic TOPICAL BID PRN 03/15/24 03/15/24 History [Mycostatin Cream] Ondansetron Odt [Zofran Odt] 4 mg PO Q6H PRN 03/15/24 03/15/24 History dilTIAZem HCL [Tiadylt ER] 180 mg PO DAILY 03/15/24 03/15/24 History Levofloxacin [Levaquin] 500 mg PO DAILY 7 Days #7 tab 03/16/24 Rx Allergies Allergy/AdvReac Type Severity Reaction Status Date / Time adhesive Allergy red skin Verified 03/15/24 17:46 trimethobenzamide Allergy Rash/Hives Verified 03/15/24 17:46 [From Tigan] vancomycin Allergy Rash/Hives Verified 03/15/24 17:46 Surgical - Exam Vital Signs Temp Pulse Resp BP Pulse Ox 97.6 F 104 H 18 145/89 97 03/15/24 11:30 03/15/24 11:30 03/15/24 11:30 03/15/24 11:30 03/15/24 11:30 Results - Labs 03/16/24 05:52 03/16/24 05:52 Abnormal Lab Results - Last 24 Hours (Table) 03/15/24 03/15/24 03/15/24 Range/Units 13:06 13:06 13:06 Hct 48.9 H (34.0-46.0) % MCHC (32.0-37.0) g/dL PT (10.0-12.5) sec INR (<1.2) APTT (22.0-30.0) sec Potassium 5.9 H (3.5-5.1) mmol/L Chloride 108 H (98-107) mmol/L POC Glucose (mg/dL) (70-110) mg/dL Alkaline Phosphatase (41-126) U/L Total Protein (6.2-8.2) g/dL Stool Occult Blood Positive H (Negative) 04/03/15/24 03/16/24 Range/Units 13:06 23:12 05:52 Hct 46.6 H (34.0-46.0) % MCHC 31.3 L (32.0-37.0) g/dL PT 13.7 H (10.0-12.5) sec INR 1.3 H (<1.2) APTT 33.8 H (22.0-30.0) sec Potassium (3.5-5.1) mmol/L Chloride (98-107) mmol/L POC Glucose (mg/dL) 132 H (70-110) mg/dL Alkaline Phosphatase (41-126) U/L Total Protein (6.2-8.2) g/dL Stool Occult Blood (Negative) 03/16/24 Range/Units 05:52 Hct (34.0-46.0) % MCHC (32.0-37.0) g/dL PT (10.0-12.5) sec INR (<1.2) APTT (22.0-30.0) sec Potassium (3.5-5.1) mmol/L Chloride (98-107) mmol/L POC Glucose (mg/dL) (70-110) mg/dL Alkaline Phosphatase 148 H (41-126) U/L Total Protein 5.9 L (6.2-8.2) g/dL Stool Occult Blood (Negative) Diabetes panel 03/15/24 03/15/24 03/16/24 Range/Units 13:06 14:48 05:52 Sodium 143 145 (137-145) mmol/L Potassium 5.9 H 4.4 5.0 (3.5-5.1) mmol/L Chloride 108 H 108 (98-107) mmol/L Carbon Dioxide 28 25.7 (22-30) mmol/L BUN 12 10.3 (7-17) mg/dL Creatinine 0.75 0.8 (0.52-1.04) mg/dL Glucose 93 90 (74-99) mg/dL Calcium 9.8 9.3 (8.4-10.2) mg/dL AST 16 (13-35) U/L ALT 20 (8-44) U/L Alkaline Phosphatase 148 H (41-126) U/L Total Protein 5.9 L (6.2-8.2) g/dL Albumin 4.2 (3.8-4.9) g/dL Calcium panel 03/15/24 03/16/24 Range/Units 13:06 05:52 Calcium 9.8 9.3 (8.4-10.2) mg/dL Albumin 4.2 (3.8-4.9) g/dL Pituitary panel 03/15/24 03/15/24 03/16/24 Range/Units 13: 14:48 05:52 Sodium 143 145 (137-145) mmol/L Potassium 5.9 H 4.4 5.0 (3.5-5.1) mmol/L Chloride 108 H 108 (98-107) mmol/L Carbon Dioxide 28 25.7 (22-30) mmol/L BUN 12 10.3 (7-17) mg/dL Creatinine 0.75 0.8 (0.52-1.04) mg/dL Glucose 93 90 (74-99) mg/dL Calcium 9.8 9.3 (8.4-10.2) mg/dL Adrenal panel 03/15/24 03/15/24 03/16/24 Range/Units 13: 14:48 05:52 Sodium 143 145 (137-145) mmol/L Potassium 5.9 H 4.4 5.0 (3.5-5.1) mmol/L Chloride 108 H 108 (98-107) mmol/L Carbon Dioxide 28 25.7 (22-30) mmol/L BUN 12 10.3 (7-17) mg/dL Creatinine 0.75 0.8 (0.52-1.04) mg/dL Glucose 93 90 (74-99) mg/dL Calcium 9.8 9.3 (8.4-10.2) mg/dL Total Bilirubin 0.4 (0.3-1.2) mg/dL AST 16 (13-35) U/L ALT 20 (8-44) U/L Alkaline Phosphatase 148 H (41-126) U/L Total Protein 5.9 L (6.2-8.2) g/dL Albumin 4.2 (3.8-4.9) g/dL
[2024-03-16 12:51] LABS: Glucose,Whole Blood 70 mg/dL (70-110)
--- NOTE | 2024-03-16 17:37 | P.HPIM ---
History of Present Illness H&P Date: 03/16/24 Chief Complaint: /Abdominal pain/constipation 53-year-old female who presented to the hospital with complaints of constipation and recurrent left knee pain. Patient reports that she did not have a bowel movement for 1 week. Her pain was across the lower abdomen. Patient reports that she did try to manually disimpact herself and could feel a stool ball. Patient did receive enemas in the ER. She had a large soft stool. She does complain of rectal discomfort and lower abdominal pain. In the ER they had reported on exam palpable stool in the rectal vault with mild gross bleeding. She had a CT scan abdomen and pelvis that reported questionable rectal mass versus stool in the right anterior lateral aspect of the rectum. Large amount of stool in the colon particularly in the sigmoid colon. Patient reports her last colonoscopy was about a year ago and reports no abnormality. Patient's past surgical history includes hemorrhoidectomy, hysterectomy and lysis of adhesions. She is on Eliquis for CVA and DVT. Last dose of Eliquis was yesterday morning. Blood work completed reveals WBC of 6.52, hemoglobin of 14.6 and platelet count of 230, sodium 145, potassium 5.0, BUNs/creatinine of 10.3/0.8 blood glucose of 132, alkaline phosphatase 148 CT scan abdomen pelvis questionable rectal mass versus stool in the right anterior lateral aspect of the rectum and further evaluation is warranted. Large amount of stool in the colon particularly in the sigmoid colon proximal to the area of the question within the rectum. Review of Systems REVIEW OF SYSTEMS: CONSTITUTIONAL: No fever, no malaise, no fatigue. HEENT: No recent visual problems or hearing problems. Denied any sore throat. CARDIOVASCULAR: No chest pain, orthopnea, PND, no palpitations, no syncope. PULMONARY: No shortness of breath, no cough, no hemoptysis. GASTROINTESTINAL: No diarrhea, no nausea, no vomiting, no abdominal pain. NEUROLOGICAL: No headaches, no weakness, no numbness. HEMATOLOGICAL: Denies any bleeding or petechiae. GENITOURINARY: Denies any burning micturition, frequency, or urgency. MUSCULOSKELETAL/RHEUMATOLOGICAL: Denies any joint pain, swelling, or any muscle pain. ENDOCRINE: Denies any polyuria or polydipsia. The rest of the 14-point review of systems is negative. Past Medical History Past Medical History: Asthma, Chest Pain / Angina, CVA/TIA, Diabetes Mellitus, Deep Vein Thrombosis (DVT), Fibromyalgia, GERD/Reflux, Hyperlipidemia, Hypertension, Liver Disease, Myocardial Infarction ([place]), Pulmonary Embolus ([place]) Additional Past Medical History / Comment(s): fibomyalgia, light weakness on left after stroke coming back. mild [place] from EKG unknown time. recent blood in stools. non alcoholic fatty liver,, diverticulosis. Last Myocardial Infarction Date:: unk History of Any Multi-Drug Resistant Organisms: C-DIFF Date of last positivie culture/infection: 2019 MDRO Source:: stool Past Surgical History: Appendectomy, Cholecystectomy, Hysterectomy, Orthopedic Surgery, Tonsillectomy Additional Past Surgical History / Comment(s): left knee replaced. left rotator cuff repair . rt hip stretched bursa. colonoscopies, laproscopic surgery to remove abdominal adhesions, left femur sx Past Anesthesia/Blood Transfusion Reactions: Postoperative Nausea & Vomiting (PONV) Additional Past Anesthesia/Blood Transfusion Reaction / Comment(s): with lap procedure had a hard time waking up. Past Psychological History: Bipolar, Depression Smoking Status: Never smoker Past Alcohol Use History: Rare Past Drug Use History: Marijuana Additional Drug Use History / Comment(s): marijuana vape pen. pt aware not to use 24 hrs before procedure. - Past Family History Mother Family Medical History: Cancer Additional Family Medical History / Comment(s): uterine Father Family Medical History: Cancer Additional Family Medical History / Comment(s): lung Medications and Allergies Home Medications Medication Instructions Recorded Confirmed Type Albuterol Sulfate [Albuterol 2 puff INHALATION RT-Q6H PRN 11/15/22 03/15/24 History Sulfate Hfa] Apixaban [Eliquis] 5 mg PO BID 11/15/22 03/15/24 History Atorvastatin Calcium [Lipitor] 40 mg PO DAILY 11/15/22 03/15/24 History Insulin Aspart [NovoLOG Flexpen] See Protocol SQ AC-TID PRN 11/15/22 03/15/24 History Magnesium Oxide 400 mg PO DAILY 11/15/22 03/15/24 History Montelukast Sodium [Singulair] 10 mg PO HS 11/15/22 03/15/24 History Dulaglutide [Trulicity] 4.5 mg SQ VICTORIA 10/09/23 03/15/24 History clonazePAM [KlonoPIN] See Taper PO DIRECTED 11/19/23 03/15/24 History Ranolazine [Ranexa] 500 mg PO BID 11/28/23 03/15/24 History Aspirin 81 mg PO DAILY #30 tab 11/30/23 03/15/24 Rx Isosorbide Mononitrate ER [Imdur] 60 mg PO DAILY 12/19/23 03/15/24 History [place] Carbonate 150 mg PO BID #60 cap 12/20/23 03/15/24 Rx traZODone HCL [Desyrel] 50 mg PO HS PRN #30 tab 12/20/23 03/15/24 Rx Empagliflozin [Jardiance] 25 mg PO DAILY 03/15/24 03/15/24 History Insulin Degludec [Tresiba 40 units SQ DAILY 03/15/24 03/15/24 History Flextouch U-100 Pen] Nystatin 100,000Unit/gm Cream 1 applic TOPICAL BID PRN 03/15/24 03/15/24 History [Mycostatin Cream] Ondansetron Odt [Zofran Odt] 4 mg PO Q6H PRN 03/15/24 03/15/24 History dilTIAZem HCL [Tiadylt ER] 180 mg PO DAILY 03/15/24 03/15/24 History Levofloxacin [Levaquin] 500 mg PO DAILY 7 Days #7 tab 03/16/24 Rx Allergies Allergy/AdvReac Type Severity Reaction Status Date / Time adhesive Allergy red skin Verified 03/15/24 17:46 trimethobenzamide Allergy Rash/Hives Verified 03/15/24 17:46 [From Tigan] vancomycin Allergy Rash/Hives Verified 03/15/24 17:46 Physical Exam Vitals: Vital Signs Temp Pulse Pulse Resp BP BP Pulse Ox 03/16/24 07:00 97.9 F 76 17 102/66 97 03/16/24 00:34 97.9 F 76 16 148/71 95 03/15/24 23:11 97.9 F 84 17 166/79 96 03/15/24 21:46 98.0 F 68 16 139/77 98 03/15/24 17:35 98.0 F 76 18 126/68 97 03/15/24 16:07 98.1 F 71 18 116/74 96 03/15/24 14:47 72 18 121/65 99 Intake and Output 03/15/24 03/16/24 03/16/24 22:59 06:59 14:59 Other: Voiding Method Toilet # Voids 1 Weight 104.326 kg CONSTITUTIONAL: Denies fever or chills. HEENT: Denies blurred vision, vision changes, or eye pain. Denies hemoptysis CARDIOVASCULAR: Denies chest pain or pressure. RESPIRATORY: No shortness of breath. GASTROINTESTINAL: See HPI for pertinent findings HEMATOLOGIC: Denies bleeding disorders. GENITOURINARY: Denies any blood in urine or increased urinary frequency. SKIN: Denies pruitis. Denies rash. Results CBC & Chem 7: 03/16/24 05:52 03/16/24 05:52 Labs: Abnormal Lab Results - Last 24 Hours (Table) 03/15/24 03/15/24 03/15/24 Range/Units 13:06 13:06 13:06 Hct 48.9 H (34.0-46.0) % MCHC (32.0-37.0) g/dL PT (10.0-12.5) sec INR (<1.2) APTT (22.0-30.0) sec Potassium 5.9 H (3.5-5.1) mmol/L Chloride 108 H (98-107) mmol/L POC Glucose (mg/dL) (70-110) mg/dL Alkaline Phosphatase (41-126) U/L Total Protein (6.2-8.2) g/dL Stool Occult Blood Positive H (Negative) 03/15/24 03/15/24 03/16/24 Range/Units 13:06 23:12 05:52 Hct 46.6 H (34.0-46.0) % MCHC 31.3 L (32.0-37.0) g/dL PT 13.7 H (10.0-12.5) sec INR 1.3 H (<1.2) APTT 33.8 H (22.0-30.0) sec Potassium (3.5-5.1) mmol/L Chloride (98-107) mmol/L POC Glucose (mg/dL) 132 H (70-110) mg/dL Alkaline Phosphatase (41-126) U/L Total Protein (6.2-8.2) g/dL Stool Occult Blood (Negative) 03/16/24 Range/Units 05:52 Hct (34.0-46.0) % MCHC (32.0-37.0) g/dL PT (10.0-12.5) sec INR (<1.2) APTT (22.0-30.0) sec Potassium (3.5-5.1) mmol/L Chloride (98-107) mmol/L POC Glucose (mg/dL) (70-110) mg/dL Alkaline Phosphatase 148 H (41-126) U/L Total Protein 5.9 L (6.2-8.2) g/dL Stool Occult Blood (Negative) Thrombosis Risk Factor Assmnt - Choose All That Apply Any of the Below Risk Factors Present?: Yes Each Factor Represents 1 point: Age 41-60 years, Obesity (BMI >25) Each Risk Factor Represents 3 Points: History of DVT/PE Thrombosis Risk Factor Assessment Total Risk Factor Score: 5 Thrombosis Risk Factor Assessment Level: High Risk Assessment and Plan Assessment: 1. Abdominal pain/constipation; no impaction --No palpable mass noted on rectal examination -- Patient reports multiple bowel movements since admission -- Await further recommendations from surgery 2. Questionable rectal mass; noted on CT of the abdomen -- Possibly stool in the rectum -- Await general surgery recommendations 3. Diabetes mellitus; patient takes Trulicity, Jardiance and Tresiba -- Will hold home regimen and monitor Accu-Cheks ACHS with insulin sliding scale 4. Hypertension; Cardizem 180 mg daily 5. Hyperlipidemia; Lipitor 40 mg daily 6. PE/DVT; patient takes Eliquis; we will resume if no surgical intervention recommended DVT prophylaxis; SCDs/Eliquis CODE STATUS; full code
[2024-03-16 17:43] VITALS: BMI 37.1
[2024-03-16 18:09] LABS: Glucose,Whole Blood 114 mg/dL (70-110)
[2024-03-16] MEDS: LEVOFLOXACIN 500MG-D5W PMX 500 MG in DEXTROSE/WATER 1 100ML.BAG IVPB SCH (18:30)
[2024-03-16] MEDS: MONTELUKAST 10 MG TAB PO SCH (20:52)
[2024-03-16] MEDS: LACTULOSE 20 GM/30 ML CUP PO SCH (20:52)
[2024-03-17 01:17] LABS: Glucose,Whole Blood 106 mg/dL (70-110)
[2024-03-17 05:13] LABS: Glucose,Whole Blood 114 mg/dL (70-110)
[2024-03-17 09:04] VITALS: BP 164/90; PULSE 69; RESP 16; TEMP 97.9
[2024-03-17 09:18] LABS: Basophils # (A) 0.03 X 10*3/uL (0.00-0.10); Basophils % (A) 0.7 %; Eosinophils # (A) 0.13 X 10*3/uL (0.04-0.35); HCT 46.6 % (37.2-46.3); HGB 14.6 g/dL (12.0-15.0); Lymphocytes # (A) 1.43 X 10*3/uL (0.90-5.00); Lymphocytes % (A) 33.3 %; MCH 28.5 pg (27.0-32.0); MCHC 31.3 g/dL (32.0-37.0); MCV 90.8 FL (80.0-97.0); Mean Platelet Volume 10.5 FL (9.5-12.2); Monocytes # (A) 0.36 X 10*3/uL (0.20-1.00); Monocytes % (A) 8.4 %; NRBC Per 100 WBC 0 X 10*3/uL (0.00-0.01); Neutrophils # (A) 2.34 X 10*3/uL (1.80-7.70); Neutrophils % (A) 54.4 %; Platelet Count 215 X 10*3/uL (140-440); RBC 5.13 X 10*6/uL (4.10-5.20); RDW 12.9 % (11.5-14.5)
[2024-03-17 12:32] LABS: Glucose,Whole Blood 142 mg/dL (70-110)
[2024-03-17 15:14] LABS: Blood Urea Nitrogen 9.8 mg/dL (9.0-27.0); Calcium 9.2 mg/dL (8.7-10.3); Carbon Dioxide 21.2 mmol/L (21.6-31.8); Chloride 106 mmol/L (96-109); Glucose 121 mg/dL (70-110); Potassium 5.1 mmol/L (3.5-5.5); Sodium 145 mmol/L (135-145)
== END 2024-03-17 13:38 | disposition home or self-care (01) ==
LOC: EC 11:17 → 6NMEDSUR 17:31
PROVIDERS: ADMIT Hospitalist; ATTEND Hospitalist
DX: R10.9 Unspecified abdominal pain (principal); K59.00 Constipation, unspecified; E11.9 Type 2 diabetes mellitus without complications; I10 Essential (primary) hypertension; E78.5 Hyperlipidemia, unspecified; K21.9 Gastro-esophageal reflux disease without esophagitis; J45.909 Unspecified asthma, uncomplicated; F31.9 Bipolar disorder, unspecified; I25.2 Old myocardial infarction; Z86.711 Personal history of pulmonary embolism; Z86.718 Personal history of other venous thrombosis and embolism; Z86.73 Personal history of transient ischemic attack (TIA), and cerebral infarction without residual deficits; Z79.01 Long term (current) use of anticoagulants; Z79.4 Long term (current) use of insulin; Z79.85 Long-term (current) use of injectable non-insulin antidiabetic drugs; Z79.84 Long term (current) use of oral hypoglycemic drugs; Z79.82 Long term (current) use of aspirin; Z79.899 Other long term (current) drug therapy; Z88.1 Allergy status to other antibiotic agents
CPT/HCPCS: 96376 ×4; 96361 ×3; 96365; 96375 ×3; 96372; 99285; 36415; 86900; 86901; 80053; 80048 ×2; 84132; 85025 ×3; 85610; 85730; 86850; 82272; 83036; 73562; 74177; G0378 ×3; J2270 ×2; J2765 ×2; J2405; J1956; C9113 ×2; Q9967

== ENCOUNTER 2024-05-11 11:41 | Emergency (ER) | payer MEDICARE, OTHER ==
--- NOTE | 2024-05-11 12:50 | ED ---
Abdominal Pain HPI - General Chief Complaint: Abdominal Pain Stated Complaint: Abd pain Time Seen by Provider: 05/11/24 12:25 Source: patient, RN notes reviewed Mode of arrival: ambulatory Limitations: no limitations - History of Present Illness Initial Comments: 54-year-old female presenting with left lower quadrant abdominal pain x 1 day. States the pain is severe and sharp/stabbing in quality. She is also complaining of some dysuria for 1 day as well. States she has had this pain on and off for 2 months. She was seen in the ER for similar pain 2 months ago where the CT showed possible mass versus abscess in colon and she was admitted to the hospital. She was discharged on antibiotics but she states the pain never resolved.. She has a colonoscopy scheduled with Dr. Eckert in [address] Eckert's office this morning where they advised her to come to the ER immediately. States this pain is worse than the last time she was admitted. She states she has been moving her bowels normally. Last bowel movement was yesterday and was normal. Denies blood in the stool. Denies fevers, vomiting. - Related Data Home Medications Medication Instructions Recorded Confirmed Albuterol Sulfate [Albuterol 2 puff INHALATION RT-Q6H PRN 11/15/22 03/15/24 Sulfate Hfa] Apixaban [Eliquis] 5 mg PO BID 11/15/22 03/15/24 Atorvastatin Calcium [Lipitor] 40 mg PO DAILY 11/15/22 03/15/24 Insulin Aspart [NovoLOG Flexpen] See Protocol SQ AC-TID PRN 11/15/22 03/15/24 Magnesium Oxide 400 mg PO DAILY 11/15/22 03/15/24 Montelukast Sodium [Singulair] 10 mg PO HS 11/15/22 03/15/24 Dulaglutide [Trulicity] 4.5 mg SQ VICTORIA 10/09/23 03/15/24 clonazePAM [KlonoPIN] See Taper PO DIRECTED 11/19/23 03/15/24 Ranolazine [Ranexa] 500 mg PO BID 11/28/23 03/15/24 Isosorbide Mononitrate ER [Imdur] 60 mg PO DAILY 12/19/23 03/15/24 Empagliflozin [Jardiance] 25 mg PO DAILY 03/15/24 03/15/24 Insulin Degludec [Tresiba 40 units SQ DAILY 03/15/24 03/15/24 Flextouch U-100 Pen] Nystatin 100,000Unit/gm Cream 1 applic TOPICAL BID PRN 03/15/24 03/15/24 [Mycostatin Cream] Ondansetron Odt [Zofran ODT] 4 mg PO Q6H PRN 03/15/24 03/15/24 dilTIAZem HCL [Tiadylt ER] 180 mg PO DAILY 03/15/24 03/15/24 Previous Rx's Medication Instructions Recorded Aspirin 81 mg PO DAILY #30 tab 11/30/23 [place] Carbonate 150 mg PO BID #60 cap 12/20/23 traZODone HCL [Desyrel] 50 mg PO HS PRN #30 tab 12/20/23 Levofloxacin [Levaquin] 500 mg PO DAILY 7 Days #7 tab 03/16/24 Ondansetron Odt [Zofran Odt] 4 mg PO Q8HR PRN #10 tab 05/11/24 Allergies Allergy/AdvReac Type Severity Reaction Status Date / Time adhesive Allergy red skin Verified 05/11/24 11:50 trimethobenzamide Allergy Rash/Hives Verified 05/11/24 11:50 [From Tigan] vancomycin Allergy Rash/Hives Verified 05/11/24 11:50 Review of Systems ROS Statement: Those systems with pertinent positive or pertinent negative responses have been documented in the HPI. ROS Other: All systems not noted in ROS Statement are negative. Past Medical History Past Medical History: Asthma, Chest Pain / Angina, CVA/TIA, Diabetes Mellitus, Deep Vein Thrombosis (DVT), Fibromyalgia, GERD/Reflux, Hyperlipidemia, Hypertension, Liver Disease, Myocardial Infarction (GA), Pulmonary Embolus (PE) Additional Past Medical History / Comment(s): fibomyalgia, light weakness on left after stroke coming back. mild GA from EKG unknown time. recent blood in stools. non alcoholic fatty liver,, diverticulosis. Last Myocardial Infarction Date:: unk History of Any Multi-Drug Resistant Organisms: C-DIFF Date of last positivie culture/infection: 2019 MDRO Source:: stool Past Surgical History: Appendectomy, Cholecystectomy, Hysterectomy, Orthopedic Surgery, Tonsillectomy Additional Past Surgical History / Comment(s): left knee replaced. left rotator cuff repair . rt hip stretched bursa. colonoscopies, laproscopic surgery to remove abdominal adhesions, left femur sx Past Anesthesia/Blood Transfusion Reactions: Postoperative Nausea & Vomiting (PONV) Additional Past Anesthesia/Blood Transfusion Reaction / Comment(s): with lap procedure had a hard time waking up. Past Psychological History: Bipolar, Depression Smoking Status: Never smoker Past Alcohol Use History: Rare Past Drug Use History: Marijuana - Past Family History Mother Family Medical History: Cancer Additional Family Medical History / Comment(s): uterine Father Family Medical History: Cancer Additional Family Medical History / Comment(s): lung General Exam Limitations: no limitations General appearance: alert, in no apparent distress Head exam: Present: atraumatic, normocephalic, normal inspection Eye exam: Present: normal appearance, PERRL, EOMI. Absent: scleral icterus, conjunctival injection, periorbital swelling ENT exam: Present: normal exam, mucous membranes moist Neck exam: Present: normal inspection. Absent: tenderness, meningismus, lymphadenopathy Respiratory exam: Present: normal lung sounds bilaterally. Absent: respiratory distress, wheezes, rales, rhonchi, stridor Cardiovascular Exam: Present: regular rate, normal rhythm, normal heart sounds. Absent: systolic murmur, diastolic murmur, rubs, gallop, clicks GI/Abdominal exam: Present: soft, tenderness (Mild left lower quadrant tenderness to palpation), normal bowel sounds. Absent: distended, guarding, rebound, rigid Course Vital Signs 05/11/24 11:48 Temperature 98.1 F Pulse Rate 81 Respiratory 20 Rate Blood Pressure 137/85 O2 Sat by Pulse 99 Oximetry Medical Decision Making - Medical Decision Making Was pt. sent in by a medical professional or institution (, PA, SLAB INSTALLER, urgent care, hospital, or detention...) When possible be specific @ -No Did you speak to anyone other than the patient for history (EMS, parent, family, police, friend...)? What history was obtained from this source @ -No Did you review nursing and triage notes (agree or disagree)? Why? @ -I reviewed and agree with nursing and triage notes Were old charts reviewed (outside hosp., previous admission, EMS record, old EK G, old radiological studies, urgent care reports/EKG's, detention records)? Report findings @ -Reviewed notes from previous admission including CT scan Differential Diagnosis (chest pain, altered mental status, abdominal pain women, abdominal pain men, vaginal bleeding, weakness, fever, dyspnea, syncope, headache, dizziness, GI bleed, back pain, seizure, CVA, palpatations, mental health, musculoskeletal)? @ -Differential Abdominal Pain Women: Appendicitis, Cholecystitis, diverticulosis, ischemic bowel, pancreatitis, hepatitis, UTI, gastroenteritis, AAA, incarcerated hernia, bowel obstruction, constipation, inflammatory bowel, hepatitis, peptic ulcer disease, splenic infarction, perforated viscus, vulvitis, ovarian torsion, PID, kidney stone, placenta abruption, this is not meant to be an all-inclusive list EKG interpreted by me (3pts min.). @ -None X-rays interpreted by me (1pt min.). @ -None done CT interpreted by me (1pt min.). @ -CT scan revealed mild distention of distal small bowel, possible enteritis U/S interpreted by me (1pt. min.). @ -None done What testing was considered but not performed or refused? (CT, X-rays, U/S, labs)? Why? @ -None What meds were considered but not given or refused? Why? @ -None Did you discuss the management of the patient with other professionals (professionals i.e. , PA, SLAB INSTALLER, lab, RT, psych nurse, social work supervisor, high lift mule operator, teacher, deck officer, case management manager)? Give summary @ -No Was smoking cessation discussed for >3mins.? @ -No Was critical care preformed (if so, how long)? @ -No Were there social determinants of health that impacted care today? How? (Homelessness, low income, unemployed, alcoholism, drug addiction, transportati on, low edu. Level, literacy, decrease access to med. care, detention, rehab)? @ -No Was there de-escalation of care discussed even if they declined (Discuss DNR or withdrawal of care, Hospice)? DNR status @ -No What co-morbidities impacted this encounter? (DM, HTN, Smoking, COPD, CAD, Cancer, CVA, ARF, Chemo, Hep., AIDS, mental health diagnosis, sleep apnea, morbid obesity)? @ -None Was patient admitted / discharged? Hospital course, mention meds given and route, prescriptions, significant lab abnormalities, going to OR and other pertinent info. @ -Patient was discharged. Patient was seen and evaluated for left lower quadrant abdominal pain x 1 day. Vitals are within normal limits. Physical e xamination remarkable for minimal left lower quadrant tenderness to palpation. Patient was given IV Zofran and morphine for pain and nausea. Lab work revealed alk phos fate of 142, otherwise unremarkable. Urine was unremarkable. CT scan revealed mild distention of distal small bowel, possible enteritis. Upon reevaluation patient states symptoms have improved. Discussed there is no sign of emergent etiology causing symptoms today. Advised to follow up closely with Dr. Eckert. Strict return/alarm symptoms discussed with patient and she shows understanding agrees with plan. Case was discussed with my attending Dr. Gamez. Patient was discharged in stable condition. Undiagnosed new problem with uncertain prognosis? @ -No Drug Therapy requiring intensive monitoring for toxicity (Heparin, Nitro, Insulin, Cardizem)? @ -No Were any procedures done? @ -No Diagnosis/symptom? @ -Enteritis, abdominal pain Acute, or Chronic, or Acute on Chronic? @ -Acute Uncomplicated (without systemic symptoms) or Complicated (systemic symptoms)? @ -Uncomplicated Side effects of treatment? @ -No Exacerbation, Progression, or Severe Exacerbation? @ -No Poses a threat to life or bodily function? How? (Chest pain, USA, GA, pneumonia, PE, COPD, DKA, ARF, appy, cholecystitis, CVA, Diverticulitis, Homicidal, Suicidal, threat to staff... and all critical care pts) @ -Low likelihood - Lab Data Result diagrams: 05/11/24 13:44 05/11/24 13:44 Lab Results 05/11/24 05/11/24 05/11/24 Range/Units 13:44 13:44 13:44 WBC 5.3 (3.8-10.6) k/uL RBC 5.17 (3.80-5.40) m/uL Hgb 15.0 (11.4-16.0) gm/dL Hct 46.0 (34.0-46.0) % MCV 88.8 (80.0-100.0) fL MCH 29.1 (25.0-35.0) pg MCHC 32.7 (31.0-37.0) g/dL RDW 12.8 (11.5-15.5) % Plt Count 254 (150-450) k/uL MPV 7.7 Neutrophils % 65 % Lymphocytes % 27 % Monocytes % 5 % Eosinophils % 2 % Basophils % 1 % Neutrophils # 3.4 (1.3-7.7) k/uL Lymphocytes # 1.4 (1.0-4.8) k/uL Monocytes # 0.2 (0-1.0) k/uL Eosinophils # 0.1 (0-0.7) k/uL Basophils # 0.0 (0-0.2) k/uL Sodium 140 (137-145) mmol/L Potassium 4.1 (3.5-5.1) mmol/L Chloride 105 (98-107) mmol/L Carbon Dioxide 31 H (22-30) mmol/L Anion Gap 4 mmol/L BUN 9 (7-17) mg/dL Creatinine 0.61 (0.52-1.04) mg/dL Est GFR (CKD-EPI)AfAm >90 (>60 ml/min/1.73 sqM) Est GFR (CKD-EPI)NonAf >90 (>60 ml/min/1.73 sqM) Glucose 115 H (74-99) mg/dL Plasma Lactic Acid Rivera 1.0 (0.7-2.0) mmol/L Calcium 9.5 (8.4-10.2) mg/dL Total Bilirubin 0.5 (0.2-1.3) mg/dL AST 19 (14-36) U/L ALT 20 (4-34) U/L Alkaline Phosphatase 142 H (38-126) U/L Total Protein 6.2 L (6.3-8.2) g/dL Albumin 4.0 (3.5-5.0) g/dL Urine Color Urine Appearance (Clear) Urine pH (5.0-8.0) Ur Specific [place] (1.001-1.035) Urine Protein (Negative) Urine Glucose (UA) (Negative) Urine Ketones (Negative) Urine Blood (Negative) Urine Nitrite (Negative) Urine Bilirubin (Negative) Urine Urobilinogen (<2.0) mg/dL Ur Leukocyte Esterase (Negative) 05/11/24 Range/Units 13:50 WBC (3.8-10.6) k/uL RBC (3.80-5.40) m/uL Hgb (11.4-16.0) gm/dL Hct (34.0-46.0) % MCV (80.0-100.0) fL MCH (25.0-35.0) pg MCHC (31.0-37.0) g/dL RDW (11.5-15.5) % Plt Count (150-450) k/uL MPV Neutrophils % % Lymphocytes % % Monocytes % % Eosinophils % % Basophils % % Neutrophils # (1.3-7.7) k/uL Lymphocytes # (1.0-4.8) k/uL Monocytes # (0-1.0) k/uL Eosinophils # (0-0.7) k/uL Basophils # (0-0.2) k/uL Sodium (137-145) mmol/L Potassium (3.5-5.1) mmol/L Chloride (98-107) mmol/L Carbon Dioxide (22-30) mmol/L Anion Gap mmol/L BUN (7-17) mg/dL Creatinine (0.52-1.04) mg/dL Est GFR (CKD-EPI)AfAm (>60 ml/min/1.73 sqM) Est GFR (CKD-EPI)NonAf (>60 ml/min/1.73 sqM) Glucose (74-99) mg/dL Plasma Lactic Acid Rivera (0.7-2.0) mmol/L Calcium (8.4-10.2) mg/dL Total Bilirubin (0.2-1.3) mg/dL AST (14-36) U/L ALT (4-34) U/L Alkaline Phosphatase (38-126) U/L Total Protein (6.3-8.2) g/dL Albumin (3.5-5.0) g/dL Urine Color Yellow Urine Appearance Clear (Clear) Urine pH 6.0 (5.0-8.0) Ur Specific [place] 1.019 (1.001-1.035) Urine Protein Negative (Negative) Urine Glucose (UA) Negative (Negative) Urine Ketones Negative (Negative) Urine Blood Negative (Negative) Urine Nitrite Negative (Negative) Urine Bilirubin Negative (Negative) Urine Urobilinogen <2.0 (<2.0) mg/dL Ur Leukocyte Esterase Negative (Negative) Disposition Clinical Impression: Abdominal pain, Enteritis Disposition: HOME SELF-CARE Condition: Stable Instructions (If sedation given, give patient instructions): Abdominal Pain (ED), Enteritis (ED) Additional Instructions: Please follow-up with Dr. Luis. Please return to the Emergency Department if symptoms worsen or any other concerns. Prescriptions: Ondansetron Odt [Zofran Odt] 4 mg PO Q8HR PRN #10 tab PRN Reason: Nausea Is patient prescribed a controlled substance at d/c from ED?: No Referrals: Brayden Valdovinos DO [Primary Care Provider] - 1-2 days Time of Disposition: 15:40
[2024-05-11] MEDS: MORPHINE SULFATE 4 MG/ML SYRINGE IVP STA (13:40)
[2024-05-11 14:12] LABS: Basophils % (A) 1 %; Eosinophils # (A) 0.1 k/uL (0-0.7); Eosinophils % (A) 2 %; Lymphocytes # (A) 1.4 k/uL (1.0-4.8); Lymphocytes % (A) 27 %; MCH 29.1 pg (25.0-35.0); MCHC 32.7 g/dL (31.0-37.0); MCV 88.8 fL (80.0-100.0); Mean Platelet Volume 7.7; Monocytes # (A) 0.2 k/uL (0-1.0); Monocytes % (A) 5 %; Neutrophils # (A) 3.4 k/uL (1.3-7.7); Neutrophils % (A) 65 %; Platelet Count 254 k/uL (150-450); RBC 5.17 m/uL (3.80-5.40); RDW 12.8 % (11.5-15.5); WBC 5.3 k/uL (3.8-10.6)
[2024-05-11 14:24] LABS: ALT 20 U/L (4-34); AST 19 U/L (14-36); African American GFR (CKD) >90 (>60 ml/min/1.73 sqM); Alkaline Phosphatase 142 U/L (38-126); Anion Gap 4 mmol/L; Blood Urea Nitrogen 9 mg/dL (7-17); Calcium 9.5 mg/dL (8.4-10.2); Carbon Dioxide 31 mmol/L (22-30); Chloride 105 mmol/L (98-107); Glucose 115 mg/dL (74-99); Non-African American GFR(CKD) >90 (>60 ml/min/1.73 sqM); Potassium 4.1 mmol/L (3.5-5.1); Sodium 140 mmol/L (137-145); Total Bilirubin 0.5 mg/dL (0.2-1.3); Total Protein 6.2 g/dL (6.3-8.2)
[2024-05-11 14:28] LABS: Appearance,Urine Clear (Clear); Bilirubin,Urine Negative (Negative); Blood,Urine Negative (Negative); Color,Urine Yellow; Glucose,Urine (UA) Negative (Negative); Ketones,Urine Negative (Negative); Leukocyte Esterase,Urine Negative (Negative); Nitrite,Urine Negative (Negative); Protein,Urine Negative (Negative); Specific Gravity,Urine 1.019 (1.001-1.035); Urobilinogen,Urine <2.0 mg/dL (<2.0)
[2024-05-11] MEDS: ONDANSETRON 4 MG/2 ML VIAL IVP STA (14:54)
--- NOTE | 2024-05-11 15:21 | CT ---
EXAMINATION TYPE: CT abdomen pelvis w con DATE OF EXAM: 05/11/2024 COMPARISON: 03/15/2024 HISTORY: LLQ abd pain CT DLP: 1617.9 mGycm CONTRAST: CT scan of the abdomen and pelvis is performed without Oral Contrast and with IV Contrast, patient in jected with 100ml mL of Isovue 300. FINDINGS: LUNG BASES-: No visible nodule. No infiltrate. LIVER/GB: The gallbladder is surgically absent. No space occupying hepatic lesion. Biliary tree is of normal caliber. PANCREAS: No inflammation. No distinct mass. SPLEEN: No splenic enlargement. No lesion seen. ADRENALS: No nodule. No thickening. KIDNEYS/BLADDER: No hydronephrosis. No nephrolithiasis. No distinct renal mass. Urinary bladder g rossly unremarkable. BOWEL: Appendectomy changes noted. Mild distention distal small bowel could reflect enteritis. Correl ate clinically. Otherwise Normal bowel caliber. No inflammation. GENITAL ORGANS: Hysterectomy changes noted. No adnexal mass. LYMPH NODES: No greater than 1cm abdominal or pelvic lymph nodes are appreciated. AORTA: No significant abnormality. OSSEOUS STRUCTURES: No significant abnormality is seen. OTHER: No significant additional abnormality is seen. IMPRESSION: 1. Mild distention distal small bowel could reflect enteritis. Correlate clinically
[2024-05-11 17:01] VITALS: BP 126/79; PULSE 64; RESP 16; TEMP 97.8
== END 2024-05-11 17:01 | disposition home or self-care (01) ==
LOC: EC 11:41
DX: K52.9 Noninfective gastroenteritis and colitis, unspecified (principal); F12.90 Cannabis use, unspecified, uncomplicated; Z91.09 Other allergy status, other than to drugs and biological substances; Z88.1 Allergy status to other antibiotic agents; Z88.8 Allergy status to other drugs, medicaments and biological substances
CPT/HCPCS: 36415; 80053; 83605; 85025; 81003; 74177; 99285; 96374; 96375; J2270; J2405; Q9967

== ENCOUNTER → 2024-05-16 | Outpatient (CLI) | payer MEDICARE, OTHER ==
[2024-05-16 18:29] LABS: Basophils # (A) 0.03 X 10*3/uL (0.00-0.10); Basophils % (A) 0.5 %; Eosinophils # (A) 0.06 X 10*3/uL (0.04-0.35); Eosinophils % (A) 1.1 %; HCT 44.9 % (37.2-46.3); HGB 14.1 g/dL (12.0-15.0); Lymphocytes # (A) 1.21 X 10*3/uL (0.90-5.00); Lymphocytes % (A) 21.7 %; MCH 28.4 pg (27.0-32.0); MCHC 31.4 g/dL (32.0-37.0); MCV 90.3 FL (80.0-97.0); Mean Platelet Volume 10.5 FL (9.5-12.2); Monocytes # (A) 0.33 X 10*3/uL (0.20-1.00); Monocytes % (A) 5.9 %; NRBC Per 100 WBC 0 X 10*3/uL (0.00-0.01); Neutrophils # (A) 3.94 X 10*3/uL (1.80-7.70); Neutrophils % (A) 70.6 %; Platelet Count 288 X 10*3/uL (140-440); RBC 4.97 X 10*6/uL (4.10-5.20); RDW 12.4 % (11.5-14.5); WBC 5.58 X 10*3/uL (4.50-10.00)
[2024-05-16 23:33] LABS: ALT 24 U/L (8-44); AST 21 U/L (13-35); Albumin 4.3 g/dL (3.8-4.9); Albumin/Globulin Ratio 2.05 Ratio (1.60-3.17); Alkaline Phosphatase 167 U/L (41-126); BUN/Creat Ratio 14.25 Ratio (12.00-20.00); Blood Urea Nitrogen 11.4 mg/dL (9.0-27.0); Calcium 9.3 mg/dL (8.7-10.3); Carbon Dioxide 18.9 mmol/L (21.6-31.8); Chloride 104 mmol/L (96-109); Globulin 2.1 g/dL (1.6-3.3); Glucose 201 mg/dL (70-110); Potassium 4.4 mmol/L (3.5-5.5); Sodium 140 mmol/L (135-145); Total Bilirubin 0.5 mg/dL (0.3-1.2); Total Protein 6.4 g/dL (6.2-8.2)
== END | disposition home or self-care (01) ==
LOC: LABWHC1 12:14
PROVIDERS: ATTEND Family Medicine
DX: F31.32 Bipolar disorder, current episode depressed, moderate (principal)
CPT/HCPCS: 36415; 80053; 80178; 82306; 84443; 85025

== ENCOUNTER 2024-06-06 18:06 | Inpatient (IN) | payer MEDICARE, OTHER ==
--- NOTE | 2024-06-06 18:29 | ED ---
Headache HPI - General Chief Complaint: Neuro Symptoms/Deficit Stated Complaint: sore throat Time Seen by Provider: 06/06/24 18:20 Source: RN notes reviewed, old records reviewed Mode of arrival: ambulatory Limitations: no limitations - History of Present Illness Initial Comments: This is a 54-year-old female to the ER for evaluation today. Patient presents today for severe headache posterior headache with slurred speech. Patient is on Eliquis. Symptoms are 1 hour prior to arrival. Patient complains of also left arm weakness, no leg weakness MD Complaint: headache, other (Neurological findings including slurred speech and left arm weakness) -: hour(s) (1) Onset Description: sudden Location: left, temporal, occipital Severity: severe Severity scale (1-10): 10 Quality: aching Consistency: constant Worsens With: none Other Symptoms: chest pain Treatments Prior to Arrival: none - Related Data Home Medications Medication Instructions Recorded Confirmed Albuterol Sulfate [Albuterol 2 puff INHALATION RT-Q6H PRN 11/15/22 06/06/24 Sulfate Hfa] Apixaban [Eliquis] 5 mg PO BID 11/15/22 06/06/24 Atorvastatin Calcium [Lipitor] 40 mg PO DAILY 11/15/22 06/06/24 Insulin Aspart [NovoLOG Flexpen] See Protocol SQ AC-TID 11/15/22 06/06/24 Magnesium Oxide 400 mg PO DAILY 11/15/22 06/06/24 Montelukast Sodium [Singulair] 10 mg PO HS 11/15/22 06/06/24 clonazePAM [KlonoPIN] 0.5 mg PO DAILY 11/19/23 06/06/24 Ranolazine [Ranexa] 500 mg PO BID 11/28/23 06/06/24 Isosorbide Mononitrate ER [Imdur] 60 mg PO DAILY 12/19/23 06/06/24 Insulin Degludec [Tresiba 40 units SQ DAILY 03/15/24 06/06/24 Flextouch U-100 Pen] dilTIAZem HCL [Tiadylt ER] 180 mg PO DAILY 03/15/24 06/06/24 Fluticasone Propion/Salmeterol 1 puff INHALATION RT-BID 06/06/24 06/06/24 [Advair 100-50 Diskus] Insulin Aspart [NovoLOG Flexpen] 17 units SQ AC-TID 06/06/24 06/06/24 Semaglutide [Ozempic] 0.25 mg SQ TH 06/06/24 06/06/24 clonazePAM [KlonoPIN] 1 mg PO HS 06/06/24 06/06/24 methocarbamoL [Robaxin] 500 mg PO Q6H PRN 06/06/24 06/06/24 Previous Rx's Medication Instructions Recorded [place] Carbonate 150 mg PO BID #60 cap 12/20/23 traZODone HCL [Desyrel] 50 mg PO HS PRN #30 tab 12/20/23 Ondansetron Odt [Zofran ODT] 4 mg PO Q8HR PRN #10 tab 05/11/24 Allergies Allergy/AdvReac Type Severity Reaction Status Date / Time adhesive Allergy red skin Verified 06/06/24 20:33 trimethobenzamide Allergy Rash/Hives Verified 06/06/24 20:33 [From Tigan] vancomycin Allergy Rash/Hives Verified 06/06/24 20:33 Review of Systems ROS Statement: Those systems with pertinent positive or pertinent negative responses have been documented in the HPI. ROS Other: All systems not noted in ROS Statement are negative. Past Medical History Past Medical History: Asthma, Chest Pain / Angina, CVA/TIA, Diabetes Mellitus, Deep Vein Thrombosis (DVT), Fibromyalgia, GERD/Reflux, Hyperlipidemia, Hypertension, Liver Disease, Myocardial Infarction (NV), Pulmonary Embolus (PE) Additional Past Medical History / Comment(s): fibomyalgia, light weakness on left after stroke coming back. mild NV from EKG unknown time. recent blood in stools. non alcoholic fatty liver,, diverticulosis. Last Myocardial Infarction Date:: unk History of Any Multi-Drug Resistant Organisms: C-DIFF Date of last positivie culture/infection: 2019 MDRO Source:: stool Past Surgical History: Appendectomy, Cholecystectomy, Hysterectomy, Orthopedic Surgery, Tonsillectomy Additional Past Surgical History / Comment(s): left knee replaced. left rotator cuff repair . rt hip stretched bursa. colonoscopies, laproscopic surgery to remove abdominal adhesions, left femur sx Past Anesthesia/Blood Transfusion Reactions: Postoperative Nausea & Vomiting (PONV) Additional Past Anesthesia/Blood Transfusion Reaction / Comment(s): with lap procedure had a hard time waking up. Past Psychological History: Bipolar, Depression Smoking Status: Never smoker Past Alcohol Use History: Rare Past Drug Use History: Marijuana - Past Family History Mother Family Medical History: Cancer Additional Family Medical History / Comment(s): uterine Father Family Medical History: Cancer Additional Family Medical History / Comment(s): lung General Exam Limitations: no limitations General appearance: alert, in no apparent distress Head exam: Present: atraumatic, normocephalic, normal inspection Eye exam: Present: normal appearance, PERRL, EOMI. Absent: scleral icterus, conjunctival injection, periorbital swelling ENT exam: Present: normal exam, mucous membranes moist Neck exam: Present: normal inspection. Absent: tenderness, meningismus, lymphadenopathy Respiratory exam: Present: normal lung sounds bilaterally. Absent: respiratory distress, wheezes, rales, rhonchi, stridor Cardiovascular Exam: Present: regular rate, normal rhythm, normal heart sounds. Absent: systolic murmur, diastolic murmur, rubs, gallop, clicks GI/Abdominal exam: Present: soft, normal bowel sounds. Absent: distended, tenderness, guarding, rebound, rigid Extremities exam: Present: normal inspection, full ROM, normal capillary refill. Absent: tenderness, pedal edema, joint swelling, calf tenderness Back exam: Present: normal inspection Neurological exam: Present: alert, oriented X3, CN II-XII intact Psychiatric exam: Present: normal affect, normal mood Skin exam: Present: warm, dry, intact, normal color. Absent: rash Course Vital Signs 06/06/24 06/06/24 06/06/24 18:11 18:16 18:30 Temperature 98 F Pulse Rate 66 66 68 Respiratory 20 18 18 Rate Blood Pressure 161/84 150/80 140/76 O2 Sat by Pulse 99 98 99 Oximetry 06/06/24 06/06/24 06/06/24 19:05 20:00 21:14 Temperature Pulse Rate 66 64 100 Respiratory 20 18 18 Rate Blood Pressure 139/80 130/68 120/78 O2 Sat by Pulse 99 98 Oximetry 06/06/24 06/07/24 22:38 00:02 Temperature Pulse Rate 66 60 Respiratory 18 18 Rate Blood Pressure 130/66 132/61 O2 Sat by Pulse 97 97 Oximetry - Reevaluation(s) Reevaluation #1: 06/06/24 19:20 Medical records reviewed Reevaluation #2: 06/06/24 19:20 Patient symptoms unchanged Reevaluation #3: 06/06/24 19:21 Patient informed of results and questions answered Reevaluation #4: Was pt. sent in by a medical professional or institution ([facility], [employer], urgent c are, hospital, or fci...) When possible be specific @ -no Did you speak to anyone other than the patient for history (EMS, parent, family, police, friend...)? What history was obtained from this source @ -no Did you review nursing and triage notes (agree or disagree)? Why? @ -agree Are old charts reviewed (outside hosp., previous admission, EMS record, old EKG, old radiological studies, urgent care reports/EKG's, fci records)? Report findings @ -yes Differential Diagnosis (chest pain, altered mental status, abdominal pain women, abdominal pain men, vaginal bleeding, weakness, fever, dyspnea, syncope, headache, dizziness, GI bleed, back pain, seizure, CVA, palpatations, mental health, musculoskeletal)? @ -prior EKG interpreted by me (3pts min.). @ -yes X-rays interpreted by me (1pt min.). @ -yes negative for acute disease CT interpreted by me (1pt min.). @ -Yes negative for acute disease U/S interpreted by me (1pt. min.). @ -no What testing was considered but not performed or refused? (CT, X-rays, U/S, labs)? Why? @ -none What meds were considered but not given or refused? Why? @ -none Did you discuss the management of the patient with other professionals (professionals i.e. [facility], [employer], lab, RT, psych nurse, mental health social worker, county treasurer, teacher, defence force senior officer, disease case manager rn)? Give summary @ -no Was smoking cessation discussed for >3mins.? @ -no Was critical care preformed (if so, how long)? @ -no Were there social determinants of health that impacted care today? How? (Homelessness, low income, unemployed, alcoholism, drug addiction, transporta tion, low edu. Level, literacy, decrease access to med. care, group home, rehab)? @ -none Was there de-escalation of care discussed even if they declined (Discuss DNR or withdrawal of care, Hospice)? DNR status @ -no What co-morbidities impacted this encounter? (DM, HTN, Smoking, COPD, CAD, Cancer, CVA, ARF, Chemo, Hep., AIDS, mental health diagnosis, sleep apnea, morbid obesity)? @ -none Was patient admitted / discharged? Hospital course, mention meds given and route, prescriptions, significant lab abnormalities, going to OR and other pertinent info. @ - 54 female as a code stroke slurred speech left arm weakness and headache. Patient admitted for neurology evaluation on Eliquis no tPA Admitted Undiagnosed new problem with uncertain prognosis? @ -no Drug Therapy requiring intensive monitoring for toxicity (Heparin, Nitro, Insulin, Cardizem)? @ -no Were any procedures done? @ -no Diagnosis/symptom? @ -CVA with headache CVA Acute, or Chronic, or Acute on Chronic? @ -Acute Uncomplicated (without systemic symptoms) or Complicated (systemic symptoms)? @ -Complicated Side effects of treatment? @ -no Exacerbation, Progression, or Severe Exacerbation? @ -exacerbation Poses a threat to life or bodily function? How? (Chest pain, USA, NV, pneumonia, PE, COPD, DKA, ARF, appy, cholecystitis, CVA, Diverticulitis, Homicidal, Suicidal, threat to staff... and all critical care pts) @ -yes 06/11/24 05:44 Reevaluation #5: Differential Headache: Migraine, tension, cluster, carbon monoxide, central venous thrombosis, pension karma temporal arteritis, acute closure glaucoma, intercranial hemorrhage, mastoiditis, sinusitis, head injury, this is not meant to be an all-inclusive list. Terrible differential CVA Ischemic stroke, hemorrhagic stroke, brain tumor, atypical migraine, Wernicke's encephalopathy, seizure, multiple sclerosis, meningitis, encephalitis, hypoglycemia, Guillain-Tamayo, electrolytes disturbance, myasthenia gravis.... This is not meant to be an all-inclusive list - Consultations Consultation #1: Spoke with [facility] who agrees to admit this patient Medical Decision Making - Medical Decision Making 54 female as a code stroke slurred speech left arm weakness and headache. Patient admitted for neurology evaluation on Eliquis no tPA - Lab Data Result diagrams: 06/06/24 18:35 06/06/24 18:35 Lab Results 07/06/06/24 06/06/24 Range/Units 18:35 18:35 18:35 WBC 5.4 (3.8-10.6) k/uL RBC 4.62 (3.80-5.40) m/uL Hgb 13.9 (11.4-16.0) gm/dL Hct 42.0 (34.0-46.0) % MCV 90.8 (80.0-100.0) fL MCH 30.1 (25.0-35.0) pg MCHC 33.1 (31.0-37.0) g/dL RDW 12.7 (11.5-15.5) % Plt Count 253 (150-450) k/uL MPV 8.0 Neutrophils % 61 % Lymphocytes % 30 % Monocytes % 6 % Eosinophils % 2 % Basophils % 1 % Neutrophils # 3.3 (1.3-7.7) k/uL Lymphocytes # 1.6 (1.0-4.8) k/uL Monocytes # 0.3 (0-1.0) k/uL Eosinophils # 0.1 (0-0.7) k/uL Basophils # 0.0 (0-0.2) k/uL PT 10.4 (10.0-12.5) sec INR 0.9 (<1.2) APTT 31.1 H (22.0-30.0) sec Sodium 140 (137-145) mmol/L Potassium 4.7 (3.5-5.1) mmol/L Chloride 107 (98-107) mmol/L Carbon Dioxide 28 (22-30) mmol/L Anion Gap 5 mmol/L BUN 12 (7-17) mg/dL Creatinine 0.63 (0.52-1.04) mg/dL Est GFR (CKD-EPI)AfAm >90 (>60 ml/min/1.73 sqM) Est GFR (CKD-EPI)NonAf >90 (>60 ml/min/1.73 sqM) Glucose 74 (74-99) mg/dL POC Glucose (mg/dL) (70-110) mg/dL POC Glu Jewel Bearing Turner ID Plasma Lactic Acid Rivera (0.7-2.0) mmol/L Calcium 9.5 (8.4-10.2) mg/dL Phosphorus 4.4 (2.5-4.5) mg/dL Magnesium 1.9 (1.6-2.3) mg/dL Total Bilirubin 0.5 (0.2-1.3) mg/dL AST 28 (14-36) U/L ALT 23 (4-34) U/L Alkaline Phosphatase 116 (38-126) U/L Troponin I (0.000-0.034) ng/mL Total Protein 6.2 L (6.3-8.2) g/dL Albumin 4.0 (3.5-5.0) g/dL Triglycerides (0.00-149.00) mg/dL Cholesterol (0.00-200.00) mg/dL LDL Cholesterol, Calc (0.0-131.0) mg/dL VLDL Cholesterol, Calc (5.00-40.00) mg/dL HDL Cholesterol (40.00-60.00) mg/dL Cholesterol/HDL Ratio Ratio 06/06/24 06/06/24 06/06/24 Range/Units 18:35 18:35 18:35 WBC (3.8-10.6) k/uL RBC (3.80-5.40) m/uL Hgb (11.4-16.0) gm/dL Hct (34.0-46.0) % MCV (80.0-100.0) fL MCH (25.0-35.0) pg MCHC (31.0-37.0) g/dL RDW (11.5-15.5) % Plt Count (150-450) k/uL MPV Neutrophils % % Lymphocytes % % Monocytes % % Eosinophils % % Basophils % % Neutrophils # (1.3-7.7) k/uL Lymphocytes # (1.0-4.8) k/uL Monocytes # (0-1.0) k/uL Eosinophils # (0-0.7) k/uL Basophils # (0-0.2) k/uL PT (10.0-12.5) sec INR (<1.2) APTT (22.0-30.0) sec Sodium (137-145) mmol/L Potassium (3.5-5.1) mmol/L Chloride (98-107) mmol/L Carbon Dioxide (22-30) mmol/L Anion Gap mmol/L BUN (7-17) mg/dL Creatinine (0.52-1.04) mg/dL Est GFR (CKD-EPI)AfAm (>60 ml/min/1.73 sqM) Est GFR (CKD-EPI)NonAf (>60 ml/min/1.73 sqM) Glucose (74-99) mg/dL POC Glucose (mg/dL) (70-110) mg/dL POC Glu Jewel Bearing Turner ID Plasma Lactic Acid Rivera 1.0 (0.7-2.0) mmol/L Calcium (8.4-10.2) mg/dL Phosphorus (2.5-4.5) mg/dL Magnesium (1.6-2.3) mg/dL Total Bilirubin (0.2-1.3) mg/dL AST (14-36) U/L ALT (4-34) U/L Alkaline Phosphatase (38-126) U/L Troponin I 0.015 (0.000-0.034) ng/mL Total Protein (6.3-8.2) g/dL Albumin (3.5-5.0) g/dL Triglycerides 115.00 (0.00-149.00) mg/dL Cholesterol 147.00 (0.00-200.00) mg/dL LDL Cholesterol, Calc 71.9 (0.0-131.0) mg/dL VLDL Cholesterol, Calc 23.00 (5.00-40.00) mg/dL HDL Cholesterol 52.10 (40.00-60.00) mg/dL Cholesterol/HDL Ratio 2.82 Ratio 06/06/24 06/06/24 Range/Units 18:43 19:03 WBC (3.8-10.6) k/uL RBC (3.80-5.40) m/uL Hgb (11.4-16.0) gm/dL Hct (34.0-46.0) % MCV (80.0-100.0) fL MCH (25.0-35.0) pg MCHC (31.0-37.0) g/dL RDW (11.5-15.5) % Plt Count (150-450) k/uL MPV Neutrophils % % Lymphocytes % % Monocytes % % Eosinophils % % Basophils % % Neutrophils # (1.3-7.7) k/uL Lymphocytes # (1.0-4.8) k/uL Monocytes # (0-1.0) k/uL Eosinophils # (0-0.7) k/uL Basophils # (0-0.2) k/uL PT (10.0-12.5) sec INR (<1.2) APTT (22.0-30.0) sec Sodium (137-145) mmol/L Potassium (3.5-5.1) mmol/L Chloride (98-107) mmol/L Carbon Dioxide (22-30) mmol/L Anion Gap mmol/L BUN (7-17) mg/dL Creatinine (0.52-1.04) mg/dL Est GFR (CKD-EPI)AfAm (>60 ml/min/1.73 sqM) Est GFR (CKD-EPI)NonAf (>60 ml/min/1.73 sqM) Glucose (74-99) mg/dL POC Glucose (mg/dL) 79 70 (70-110) mg/dL POC Glu Jewel Bearing Turner Klaus Jacob Matthew Plasma Lactic Acid Rivera (0.7-2.0) mmol/L Calcium (8.4-10.2) mg/dL Phosphorus (2.5-4.5) mg/dL Magnesium (1.6-2.3) mg/dL Total Bilirubin (0.2-1.3) mg/dL AST (14-36) U/L ALT (4-34) U/L Alkaline Phosphatase (38-126) U/L Troponin I (0.000-0.034) ng/mL Total Protein (6.3-8.2) g/dL Albumin (3.5-5.0) g/dL Triglycerides (0.00-149.00) mg/dL Cholesterol (0.00-200.00) mg/dL LDL Cholesterol, Calc (0.0-131.0) mg/dL VLDL Cholesterol, Calc (5.00-40.00) mg/dL HDL Cholesterol (40.00-60.00) mg/dL Cholesterol/HDL Ratio Ratio - EKG Data -: EKG Interpreted by Me (EKG is sinus 65 SC 138 QRS 92 QTc 427) - Radiology Data Radiology results: report reviewed (CT brain and CTA head neck negative for acute disease), image reviewed Critical Care Time Critical Care Time: Yes Total Critical Care Time: 31 Disposition Clinical Impression: Stroke-like symptoms, Cerebrovascular accident (CVA), Difficulty with speech Disposition: ADMITTED IP TO THIS HOSP Condition: Serious Is patient prescribed a controlled substance at d/c from ED?: No Time of Disposition: 22:00
[2024-06-06 18:46] LABS: Glucose,Whole Blood 79 mg/dL (70-110)
--- NOTE | 2024-06-06 19:02 | CT ---
EXAMINATION TYPE: CT brain wo con CT DLP: 1201.6 mGycm, Automated exposure control for dose reduction was used. DATE OF EXAM: 06/06/2024 6:55 PM COMPARISON: 03/07/2023. CLINICAL INDICATION:Female, 54 years old with history of ams, Code stroke. Hx of stroke. Slurred spee ch. Weakness. TECHNIQUE: Brain: Axial CT images of the brain were obtained with coronal and sagittal reformats created and rev iewed. Contrast used: None. Oral contrast used: None. FINDINGS: Brain: Extra-axial spaces: No abnormal extra-axial fluid collections. Ventricular system: Within normal limits Cerebral parenchyma: Remote left basal ganglia injury and/or prominent perivascular space or choroida l fissure cyst.. No acute intraparenchymal hemorrhage or mass effect. The hodges-white junction is wel l differentiated. Cerebellum: Unremarkable. Mass effect: No evidence of midline shift. Intracranial vasculature: unremarkable Soft tissues: Normal. Calvarium/osseous structures: No depressed skull fracture. Paranasal sinuses and mastoid air cells: Mild scattered paranasal sinus disease. Visualized orbits: Orbital contents are intact. IMPRESSION: No acute intracranial process.
[2024-06-06] MEDS: MORPHINE SULFATE 4 MG/ML SYRINGE IV STA ×2 (19:04→23:56)
[2024-06-06] MEDS: ONDANSETRON 4 MG/2 ML VIAL IVP STA (19:04)
[2024-06-06 19:05] LABS: Basophils % (A) 1 %; Eosinophils # (A) 0.1 k/uL (0-0.7); Eosinophils % (A) 2 %; HGB 13.9 gm/dL (11.4-16.0); Lymphocytes # (A) 1.6 k/uL (1.0-4.8); Lymphocytes % (A) 30 %; MCH 30.1 pg (25.0-35.0); MCHC 33.1 g/dL (31.0-37.0); MCV 90.8 fL (80.0-100.0); Monocytes # (A) 0.3 k/uL (0-1.0); Monocytes % (A) 6 %; Neutrophils # (A) 3.3 k/uL (1.3-7.7); Neutrophils % (A) 61 %; Platelet Count 253 k/uL (150-450); RBC 4.62 m/uL (3.80-5.40); RDW 12.7 % (11.5-15.5); WBC 5.4 k/uL (3.8-10.6)
[2024-06-06 19:05] LABS: Glucose,Whole Blood 70 mg/dL (70-110)
[2024-06-06] MEDS: SODIUM CHLORIDE 0.9% 1,000 ML IV STA (19:05)
[2024-06-06 19:16] LABS: ALT 23 U/L (4-34); AST 28 U/L (14-36); African American GFR (CKD) >90 (>60 ml/min/1.73 sqM); Alkaline Phosphatase 116 U/L (38-126); Anion Gap 5 mmol/L; Blood Urea Nitrogen 12 mg/dL (7-17); Calcium 9.5 mg/dL (8.4-10.2); Carbon Dioxide 28 mmol/L (22-30); Chloride 107 mmol/L (98-107); Glucose 74 mg/dL (74-99); Magnesium 1.9 mg/dL (1.6-2.3); Non-African American GFR(CKD) >90 (>60 ml/min/1.73 sqM); Phosphorus 4.4 mg/dL (2.5-4.5); Potassium 4.7 mmol/L (3.5-5.1); Sodium 140 mmol/L (137-145); Total Bilirubin 0.5 mg/dL (0.2-1.3); Total Protein 6.2 g/dL (6.3-8.2)
--- NOTE | 2024-06-06 19:20 | CT ---
EXAMINATION TYPE: CT angio head neck CT DLP: 508.2 mGycm, Automated exposure control for dose reduction was used. DATE OF EXAM: 06/06/2024 7:11 PM COMPARISON: CT head same day. CLINICAL INDICATION:Female, 54 years old with history of ams; PHH, AMS, slurred speech with left side body numbness. hx of TIA TECHNIQUE: Axially acquired helical CT angiogram of the head and neck was obtained with contrast. Axi al images are supplemented with 3D reconstructions and MIP images which were post-processed at an in dependent workstation. NASCET criteria used. Contrast used:65ml mL of Isovue 370 without and with IV Contrast, Oral contrast used: None. FINDINGS: CTA HEAD: No evidence of acute intracranial hemorrhage, mass effect, or midline shift. The ventricles, sulci, a nd cisterns are unremarkable. The visualized portions of the internal carotid arteries, middle cerebral arteries, anterior cerebral arteries, and posterior cerebral arteries are patent. origin of the right posterior cerebral a rtery. The basilar and vertebral arteries are patent. CTA NECK: Right Carotid System: The common carotid artery and external carotid artery are patent. The carotid bifurcation demonstrate s no evidence of hemodynamically significant stenosis. The remaining portions of the internal carotid artery demonstrate normal size without significant narrowing. Left Carotid System: The common carotid artery and external carotid artery are patent. The carotid bifurcation demonstrate s no evidence of hemodynamically significant stenosis. The remaining portions of the internal carotid artery demonstrate normal size without significant narrowing. Vertebral arteries are patent without evidence hemodynamically significant stenosis. There is a three-vessel aortic arch. The origins of the great vessels are patent. No evidence of hemo dynamically significant stenosis. Upper thorax: IMPRESSION: 1. No evidence of dissection of the cervical internal carotid arteries or vertebral arteries or any e vidence of significant stenosis at the carotid bifurcations. 2. No evidence of intracranial high-grade stenosis or intracranial aneurysm.
[2024-06-06 19:23] LABS: INR 0.9 (<1.2); Partial Thromboplastin Time 31.1 sec (22.0-30.0); Prothrombin Time 10.4 sec (10.0-12.5)
[2024-06-07] MEDS: SODIUM CHLORIDE 0.9% 1,000 ML IV SCH (00:01)
[2024-06-07] MEDS: clonazePAM 0.5 MG TAB PO STA (00:43)
[2024-06-07] MEDS: ASPIRIN 325 MG TAB PO STA (00:43)
[2024-06-07] MEDS: ONDANSETRON 4 MG/2 ML VIAL IVP PRN (02:10)
[2024-06-07 07:13] LABS: Glucose,Whole Blood 108 mg/dL (70-110)
[2024-06-07 08:08] VITALS: RESP 18
[2024-06-07] MEDS: ASPIRIN 325 MG TAB PO SCH (08:08)
[2024-06-07 08:56] LABS: Chol/HDL Ratio 2.82 Ratio; LDL Cholesterol,Calculated 71.9 mg/dL (0.0-131.0)
--- NOTE | 2024-06-07 10:18 | P.HPIM ---
History of Present Illness This is a pleasant 54 years old female with past medical history of A-fib, she was on Eliquis at home History of CVA/TIA, diabetes mellitus, deep venous thrombosis, fibromyalgia, GERD, hypertension, hyperlipidemia, liver disease, pulmonary embolism. Patient presents because of slurred speech since 5 PM yesterday, this was associated with severe weakness of the left upper and lower extremity, she states her left arm still heavy, she thinks her legs slightly better, however she barely can move both of them. She started getting some diplopia as well She states she was on Eliquis for A-fib but stopped taking it for 4 days for p ossible colonoscopy where she had abdominal pain. Patient did not get the colonoscopy eventually. Patient denies abdominal pain currently no vomiting or diarrhea No urinary complaint. No chest pain or dyspnea or coughing Patient denies smoking alcohol or illicit drugs. She is afebrile and vital stable She has unremarkable CBC, BMP, liver enzymes, INR and lactic acid CT of the brain is negative for acute process CT of the head of neck showing no dissection or aneurysm EKG showing sinus rhythm at 65 Patient started on aspirin 325 mg in the emergency room Review of Systems Review of systems CONSTITUTIONAL: No fever, no malaise, no fatigue. HEENT: No recent visual problems or hearing problems. Denied any sore throat. CARDIOVASCULAR: No orthopnea, PND, no palpitations, no syncope. PULMONARY: No shortness of breath, no cough, no hemoptysis. GASTROINTESTINAL: No diarrhea, no nausea, no vomiting, no abdominal pain. Normoactive bowel sounds. -NEUROLOGICAL: As above HEMATOLOGICAL: Denies any bleeding or petechiae. GENITOURINARY: Denies any burning micturition, frequency, or urgency. MUSCULOSKELETAL/RHEUMATOLOGICAL: Denies any joint pain, swelling, or any muscle pain. ENDOCRINE: Denies any polyuria or polydipsia. Past Medical History Past Medical History: Asthma, Chest Pain / Angina, CVA/TIA, Diabetes Mellitus, Deep Vein Thrombosis (DVT), Fibromyalgia, GERD/Reflux, Hyperlipidemia, Hypertension, Liver Disease, Myocardial Infarction ([place]), Pulmonary Embolus ([place]) Additional Past Medical History / Comment(s): fibomyalgia, light weakness on left after stroke coming back. mild [place] from EKG unknown time. recent blood in stools. non alcoholic fatty liver,, diverticulosis. Last Myocardial Infarction Date:: unk History of Any Multi-Drug Resistant Organisms: C-DIFF Date of last positivie culture/infection: 2019 MDRO Source:: stool Past Surgical History: Appendectomy, Cholecystectomy, Hysterectomy, Orthopedic Surgery, Tonsillectomy Additional Past Surgical History / Comment(s): left knee replaced. left rotator cuff repair . rt hip stretched bursa. colonoscopies, laproscopic surgery to remove abdominal adhesions, left femur sx Past Anesthesia/Blood Transfusion Reactions: Postoperative Nausea & Vomiting (PONV) Additional Past Anesthesia/Blood Transfusion Reaction / Comment(s): with lap procedure had a hard time waking up. Past Psychological History: Bipolar, Depression Smoking Status: Never smoker Past Alcohol Use History: Rare Past Drug Use History: Marijuana Additional Drug Use History / Comment(s): marijuana vape pen. pt aware not to use 24 hrs before procedure. - Past Family History Mother Family Medical History: Cancer Additional Family Medical History / Comment(s): uterine Father Family Medical History: Cancer Additional Family Medical History / Comment(s): lung Medications and Allergies Home Medications Medication Instructions Recorded Confirmed Type Albuterol Sulfate [Albuterol 2 puff INHALATION RT-Q6H PRN 11/15/22 06/06/24 History Sulfate Hfa] Apixaban [Eliquis] 5 mg PO BID 11/15/22 06/06/24 History Atorvastatin Calcium [Lipitor] 40 mg PO DAILY 11/15/22 06/06/24 History Insulin Aspart [NovoLOG Flexpen] See Protocol SQ AC-TID 11/15/22 06/06/24 History Magnesium Oxide 400 mg PO DAILY 11/15/22 06/06/24 History Montelukast Sodium [Singulair] 10 mg PO HS 11/15/22 06/06/24 History clonazePAM [KlonoPIN] 0.5 mg PO DAILY 11/19/23 06/06/24 History Ranolazine [Ranexa] 500 mg PO BID 11/28/23 06/06/24 History Isosorbide Mononitrate ER [Imdur] 60 mg PO DAILY 12/19/23 06/06/24 History [place] Carbonate 150 mg PO BID #60 cap 12/20/23 06/06/24 Rx traZODone HCL [Desyrel] 50 mg PO HS PRN #30 tab 12/20/23 06/06/24 Rx Insulin Degludec [Tresiba 40 units SQ DAILY 03/15/24 06/06/24 History Flextouch U-100 Pen] dilTIAZem HCL [Tiadylt ER] 180 mg PO DAILY 03/15/24 06/06/24 History Ondansetron Odt [Zofran Odt] 4 mg PO Q8HR PRN #10 tab 05/11/24 06/06/24 Rx Fluticasone Propion/Salmeterol 1 puff INHALATION RT-BID 06/06/24 06/06/24 History [Advair 100-50 Diskus] Insulin Aspart [NovoLOG Flexpen] 17 units SQ AC-TID 06/06/24 06/06/24 History Semaglutide [Ozempic] 0.25 mg SQ TH 06/06/24 06/06/24 History clonazePAM [KlonoPIN] 1 mg PO HS 06/06/24 06/06/24 History methocarbamoL [Robaxin] 500 mg PO Q6H PRN 06/06/24 06/06/24 History Allergies Allergy/AdvReac Type Severity Reaction Status Date / Time adhesive Allergy red skin Verified 06/06/24 20:33 trimethobenzamide Allergy Rash/Hives Verified 06/06/24 20:33 [From [facility]] vancomycin Allergy Rash/Hives Verified 06/06/24 20:33 Physical Exam Vitals: Vital Signs Temp Pulse Pulse Resp BP BP Pulse Ox 06/07/24 08:05 98.1 F 60 18 132/84 97 06/07/24 03:34 97.8 F 63 16 126/61 94 L 06/07/24 00:22 97.8 F 61 16 172/78 94 L 06/07/24 00:02 60 18 132/61 97 06/06/24 22:38 66 18 130/66 97 06/06/24 21:14 100 18 120/78 06/06/24 20:00 64 18 130/68 98 06/06/24 19:05 66 20 139/80 99 06/06/24 18:30 68 18 140/76 99 06/06/24 18:16 66 18 150/80 98 06/06/24 18:11 98 F 66 20 161/84 99 Intake and Output 06/06/24 06/07/24 06/07/24 22:59 06:59 14:59 Intake Total 10 Output Total 0 Balance 0 10 Intake: IV 10 Invasive Line 1 10 Oral 0 Output: Urine 0 Other: Voiding Method Toilet Toilet # Voids 0 Weight 106.594 kg 109.5 kg -GENERAL: The patient is alert and oriented x3, not in any acute distress. Well developed, well nourished. Obesity HEENT: Pupils are round and equally reacting to light. EOMI. No scleral icterus. No conjunctival pallor. Normocephalic, atraumatic. No pharyngeal erythema. No thyromegaly. CARDIOVASCULAR: S1 and S2 present. No murmurs, rubs, or gallops. PULMONARY: Chest is clear to auscultation, no wheezing , no crackles. ABDOMEN: Soft, nontender, nondistended, normoactive bowel sounds. No palpable organomegaly. MUSCULOSKELETAL: No joint swelling or deformity. EXTREMITIES: No cyanosis, clubbing, or pedal edema. -NEUROLOGICAL: Patient has slurred speech, she has severe hemiplegia of the left upper and left lower extremities. SKIN: No rashes. no petechiae. Results CBC & Chem 7: 06/06/24 18:35 06/06/24 18:35 Labs: Abnormal Lab Results - Last 24 Hours (Table) 06/06/24 06/06/24 Range/Units 18:35 18:35 APTT 31.1 H (22.0-30.0) sec Total Protein 6.2 L (6.3-8.2) g/dL Thrombosis Risk Factor Assmnt - Choose All That Apply Any of the Below Risk Factors Present?: Yes Each Factor Represents 1 point: Age 41-60 years, Obesity (BMI >25) Other Risk Factors: No Other congenital or acquired thrombophilia - If yes, enter type in comment: No Thrombosis Risk Factor Assessment Total Risk Factor Score: 2 Thrombosis Risk Factor Assessment Level: Low Risk Assessment and Plan Assessment: Acute stroke is suspected with severe left hemiplegia and slurred speech and diplopia and headache Recent history of abdominal pain plan for colonoscopy but did not get it History of DVT and PE Fibromyalgia History of GERD Diabetes mellitus Hypertension Hyperlipidemia History of osteoarthritis Hypothyroidism Obesity with BMI of 39 Plan: Continue with aspirin 325 mg Follow-up echocardiogram Order carotid duplex CT of the brain and CTA of the head and neck were reviewed Neurology consult Continue with gentle hydration Speech and swallow evaluation Cardiology consult Labs and medication were reviewed.. Continue same treatment. Continue with symptomatic treatment. Resume home medication. Monitor lytes and vitals. DVT and GI prophylaxis. Further recommendations depends on the clinical course of the patient DVT prophylaxis: Subcutaneous heparin GI Prophylaxis: Pepcid PT/OT: Pending Prognosis is guarded
[2024-06-07] MEDS: MORPHINE SULFATE 4 MG/ML SYRINGE IVP PRN (10:31)
[2024-06-07] MEDS ORDERED: traZODone HCL 50 MG TAB PO PRN (10:44)
[2024-06-07] MEDS ORDERED: ALBUTEROL NEBULIZED 2.5 MG/3 ML INHALATION PRN (10:44)
[2024-06-07] MEDS ORDERED: clonazePAM 0.5 MG TAB PO PRN (10:44)
[2024-06-07] MEDS ORDERED: DEXTROSE 50% SYRINGE 50 ML IVP PRN ×2 (10:45)
[2024-06-07 11:32] LABS: Glucose,Whole Blood 133 mg/dL (70-110)
--- NOTE | 2024-06-07 11:39 | US ---
EXAMINATION TYPE: US carotid duplex BILAT DATE OF EXAM: 06/07/2024 COMPARISON: CT angio CLINICAL INDICATION: Female, 54 years old with history of stroke; New onset left sided weakness and n umbness with slurred speech and a migrane x 1 day. Hx HTN TECHNIQUE: Carotid duplex ultrasound examination. Indirect Doppler criteria was utilized. FINDINGS: EXAM MEASUREMENTS: RIGHT: Peak Systolic Velocity (PSV) cm/sec ----- Right CCA: 82 ----- Right ICA: 90 ----- Right ECA: 88 ICA/CCA ratio: 1.1 RIGHT: End Diastole cm/sec ----- Right CCA: 28 ----- Right ICA: 32 ----- Right ECA: 11 LEFT: Peak Systolic Velocity (PSV) cm/sec ----- Left CCA: 34 ----- Left ICA: 107 ----- Left ECA: 88 ICA/CCA ratio: 1.7 LEFT: End Diastole cm/sec ----- Left CCA: 24 ----- Left ICA: 40 ----- Left ECA: 12 VERTEBRALS (direction of flow): Right Vertebral: Antegrade Left Vertebral: Antegrade Rhythm: Normal [employer]BEST[employer] WORKER NOTES: No intimal thickening, plaque noted left CCA bulb, and no elevated velocities seen . IMPRESSION: 1. Minimal atheromatous plaquing left common carotid artery without areas of significant flow-limitin g stenosis based on velocity. Criteria for Assigning % of Stenosis / Diameter reduction (Estimation based on the indirect measurements of the internal carotid artery velocities (ICA PSV). 1. Normal (no stenosis)=ICA PSV < 125 cm/s: ratio < 2.0: ICA EDV<40 cm/s. 2. Less than 50% stenosis=ICA PSV < 125 cm/s: ratio < 2.0: ICA EDV<40 cm/s. 3. 50 to 69% stenosis=ICA PSV of 125 to 230 cm/s: ration 2.0 ? 4.0: ICA EDV 40-100 cm/s. 4. Greater than 70% stenosis to near occlusion= ICA PSV > 230 cm/s: ratio > 4.0: ICA EDV > 100 cm/s. 5. Near occlusion= ICA PSV velocities may be low or undetectable: variable ratio and ICA EDV. 6. Total occlusion=unable to detect flow.
[2024-06-07] MEDS: INSULIN ASPART (NovoLOG) 100 UNIT/ML VIAL SQ SCH (11:52)
--- NOTE | 2024-06-07 13:26 | CA ---
Transthoracic Echo Report Name: Aurora Tsai Age: 54 Gender: F : 1970 Exam Date: 06/07/2024 10:44 Exam Location: [facility] Ht (in): 66 Wt (lb): 235 Ordering Physician: Ramon Vergara DO Attending/Referring Phys: [id number], Ursula Etl Programmer Chanell Escamilla RDCS Procedure CPT: Indications: Thrombus Cardiac Hx: Technical Quality: Fair Contrast 1: Total Dose (mL): Contrast 2: Total Dose (mL): MEASUREMENTS (Male / Female) Normal Values 2D ECHO LV Diastolic Diameter PLAX 5.2 cm 4.2 - 5.9 / 3.9 - 5.3 cm LV Systolic Diameter PLAX 3.6 cm IVS Diastolic Thickness 1.0 cm 0.6 - 1.0 / 0.6 - 0.9 cm LVPW Diastolic Thickness 1.0 cm 0.6 - 1.0 / 0.6 - 0.9 cm LV Relative Wall Thickness 0.4 LVOT Diameter 2.0 cm LV Diastolic Volume MOD BP 125.3 cm??? 67 - 155 / 56 - 104 cm??? LV Systolic Volume MOD BP 52.8 cm??? 22 - 58 / 19 - 49 cm??? LV Ejection Fraction MOD BP 57.8 % >= 55 % LV Cardiac Index MOD BP 2164.8 cm???/min???m??? LV Diastolic Volume MOD 4C 115.3 cm??? LV Systolic Volume MOD 4C 51.2 cm??? LV Ejection Fraction MOD 4C 55.6 % LV Cardiac Index MOD 4C 1913.8 cm???/min???m??? LV Diastolic Length 4C 8.7 cm LV Systolic Length 4C 7.9 cm LV Diastolic Volume MOD 2C 135.8 cm??? LV Systolic Volume MOD 2C 50.4 cm??? LV Ejection Fraction MOD 2C 62.9 % LV Cardiac Index MOD 2C 2550.4 cm???/min???m??? LV Diastolic Length 2C 8.7 cm LV Systolic Length 2C 7.3 cm LA Volume 57.1 cm??? 18 - 58 / 22 - 52 cm??? LA Volume Index 25.1 cm???/m??? 16 - 28 cm???/m??? Ascending Aorta Diameter 2.8 cm DOPPLER AV Peak Velocity 138.5 cm/s AV Peak Gradient 7.7 mmHg AV Mean Velocity 95.7 cm/s AV Mean Gradient 4.2 mmHg AV Velocity Time Integral 35.3 cm LVOT Peak Velocity 113.9 cm/s LVOT Peak Gradient 5.2 mmHg LVOT Velocity Time Integral 28.5 cm LVOT Stroke Volume 89.9 cm??? LVOT Stroke Volume Index 42.0 ml/m??? LVOT Cardiac Index 2685.3 cm???/min???m??? AV Area Cont Eq vti 2.5 cm??? AV Area Cont Eq pk 2.6 cm??? MV Area PHT 4.2 cm??? Mitral E Point Velocity 89.5 cm/s Mitral A Point Velocity 73.7 cm/s Mitral E to A Ratio 1.2 MV Deceleration Time 179.3 ms PV Peak Velocity 79.2 cm/s PV Peak Gradient 2.5 mmHg FINDINGS Left Ventricle Left ventricular ejection fraction is estimated at 55-60 %. Mildly increased posterior wall thickness. Moderately increased left ventricular diastolic volume. Mildly increased left ventricular systolic volume. No obvious regional wall motion abnormalities. Right Ventricle Normal right ventricular size and function. Unable to estimate the right ventricular systolic pressure. Right Atrium Normal right atrial size. Left Atrium Mildly increased left atrial volume. Mildly increased left atrial area. Mitral Valve Structurally normal mitral valve. No evidence for mitral valve prolapse. No mitral stenosis. Trace mitral regurgitation. Aortic Valve Trileaflet aortic valve. No aortic stenosis. No aortic regurgitation. Tricuspid Valve Structurally normal tricuspid valve. No tricuspid stenosis. Trace tricuspid regurgitation. Pulmonic Valve Structurally normal pulmonic valve. No pulmonic stenosis. No pulmonic regurgitation. Pericardium No pericardial effusion. Aorta Normal size aortic root and proximal ascending aorta. CONCLUSIONS Left ventricular ejection fraction 55-60% Mildly increased left ventricular wall thickness Trace mitral regurgitation Trace tricuspid regurgitation No pericardial effusion Previewed by: Dr. Johny Ni DO (Electronically Signed) Final Date: 07 June 2024 13:25
--- NOTE | 2024-06-07 14:43 | P.CNNES ---
History of Present Illness Consult date: 06/07/24 Requesting physician: Ramon Vergara Reason for Consult: cva History of Present Illness: This is a 54-year-old woman with previous history of left-sided weakness facial droop speech difficulty and stuttering and had imaging of the brain which was negative and felt more conversion, diabetes, hypertension, history of DVT and PE and is on Eliquis, bipolar who presented emergency department because of left- sided weakness again with speech difficulty. Stated her symptoms began yesterday at 5 PM and she started stuttering. She according to her she has a history of A-fib she is on Eliquis and she stopped a month ago for 4 days for the colonoscopy then was resumed and had no issues but yesterday she developed left-sided weakness and stuttering. She states that she is under a lot of stress dealing with her ex boyfriend. She is follow-up with a neurologist as an outpatient. States she is following up with Dr. Odell for her neurological care as an outpatient. She is also follow-up with psychiatrist as outpatient. Per the nurse she stated that her speech is inconsistent. Personally seen the patient last in December 19, 2023 and she had a similar presentation as above and had MRI of the brain which was negative felt this was more conversion. Some of the work-up during this hospital visit consisted of: Lipid panel is triglyceride 115, cholesterol 147, LDL is 71 and HDL is 52. I reviewed the rest of the lab workup. CT of the head is reported as no acute intracranial process. I personally reviewed the CT and agree with the report CT angiography of the head and neck is reported no evidence of dissection of cervical internal carotid artery or vertebral artery or any evidence of significant stenosis at the carotid bifurcation. No evidence of intracranial high-grade stenosis or intracranial aneurysm. Carotid duplex is reported as minimal atherosclerotic plaque in left carotid artery with area of significant flow-limiting stenosis based on velocity 2D echo was reported ventricular ejection fraction 55 to 60%. Mild increased left ventricular wall thickness. Review of Systems Review of system: The 12 point system was reviewed and apparent positive and negative per HPI. Past Medical History Past Medical History: Asthma, Chest Pain / Angina, CVA/TIA, Diabetes Mellitus, Deep Vein Thrombosis (DVT), Fibromyalgia, GERD/Reflux, Hyperlipidemia, Hypertension, Liver Disease, Myocardial Infarction ([place]), Pulmonary Embolus ([place]) Additional Past Medical History / Comment(s): fibomyalgia, light weakness on left after stroke coming back. mild [place] from EKG unknown time. recent blood in stools. non alcoholic fatty liver,, diverticulosis. Last Myocardial Infarction Date:: unk History of Any Multi-Drug Resistant Organisms: C-DIFF Date of last positivie culture/infection: 2019 MDRO Source:: stool Past Surgical History: Appendectomy, Cholecystectomy, Hysterectomy, Orthopedic Surgery, Tonsillectomy Additional Past Surgical History / Comment(s): left knee replaced. left rotator cuff repair . rt hip stretched bursa. colonoscopies, laproscopic surgery to remove abdominal adhesions, left femur sx Past Anesthesia/Blood Transfusion Reactions: Postoperative Nausea & Vomiting (PONV) Additional Past Anesthesia/Blood Transfusion Reaction / Comment(s): with lap procedure had a hard time waking up. Past Psychological History: Bipolar, Depression Smoking Status: Never smoker Past Alcohol Use History: Rare Past Drug Use History: Marijuana Additional Drug Use History / Comment(s): marijuana vape pen. pt aware not to use 24 hrs before procedure. - Past Family History Mother Family Medical History: Cancer Additional Family Medical History / Comment(s): uterine Father Family Medical History: Cancer Additional Family Medical History / Comment(s): lung Medications and Allergies Home Medications Medication Instructions Recorded Confirmed Type Albuterol Sulfate [Albuterol 2 puff INHALATION RT-Q6H PRN 11/15/22 06/06/24 History Sulfate Hfa] Apixaban [Eliquis] 5 mg PO BID 11/15/22 06/06/24 History Atorvastatin Calcium [Lipitor] 40 mg PO DAILY 11/15/22 06/06/24 History Insulin Aspart [NovoLOG Flexpen] See Protocol SQ AC-TID 11/15/22 06/06/24 History Magnesium Oxide 400 mg PO DAILY 11/15/22 06/06/24 History Montelukast Sodium [Singulair] 10 mg PO HS 11/15/22 06/06/24 History clonazePAM [KlonoPIN] 0.5 mg PO DAILY 11/19/23 06/06/24 History Ranolazine [Ranexa] 500 mg PO BID 11/28/23 06/06/24 History Isosorbide Mononitrate ER [Imdur] 60 mg PO DAILY 12/19/23 06/06/24 History [place] Carbonate 150 mg PO BID #60 cap 12/20/23 06/06/24 Rx traZODone HCL [Desyrel] 50 mg PO HS PRN #30 tab 12/20/23 06/06/24 Rx Insulin Degludec [Tresiba 40 units SQ DAILY 03/15/24 06/06/24 History Flextouch U-100 Pen] dilTIAZem HCL [Tiadylt ER] 180 mg PO DAILY 03/15/24 06/06/24 History Ondansetron Odt [Zofran Odt] 4 mg PO Q8HR PRN #10 tab 05/11/24 06/06/24 Rx Fluticasone Propion/Salmeterol 1 puff INHALATION RT-BID 06/06/24 06/06/24 History [Advair 100-50 Diskus] Insulin Aspart [NovoLOG Flexpen] 17 units SQ AC-TID 06/06/24 06/06/24 History Semaglutide [Ozempic] 0.25 mg SQ TH 06/06/24 06/06/24 History clonazePAM [KlonoPIN] 1 mg PO HS 06/06/24 06/06/24 History methocarbamoL [Robaxin] 500 mg PO Q6H PRN 06/06/24 06/06/24 History Allergies Allergy/AdvReac Type Severity Reaction Status Date / Time adhesive Allergy red skin Verified 06/06/24 20:33 trimethobenzamide Allergy Rash/Hives Verified 06/06/24 20:33 [From [facility]] vancomycin Allergy Rash/Hives Verified 06/06/24 20:33 Physical Examination - Vital Signs Vital Signs: Vital Signs Temp Pulse Pulse Resp BP BP Pulse Ox 06/07/24 11:26 61 18 129/79 98 06/07/24 08:05 98.1 F 60 18 132/84 97 06/07/24 03:34 97.8 F 63 16 126/61 94 L 06/07/24 00:22 97.8 F 61 16 172/78 94 L 06/07/24 00:02 60 18 132/61 97 06/06/24 22:38 66 18 130/66 97 06/06/24 21:14 100 18 120/78 06/06/24 20:00 64 18 130/68 98 06/06/24 19:05 66 20 139/80 99 06/06/24 18:30 68 18 140/76 99 06/06/24 18:16 66 18 150/80 98 06/06/24 18:11 98 F 66 20 161/84 99 Intake and Output 06/06/24 06/07/24 06/07/24 22:59 06:59 14:59 Intake Total 10 Output Total 0 Balance 0 10 Intake: IV 10 Invasive Line 1 10 Oral 0 Output: Urine 0 Other: Voiding Method Toilet Toilet # Voids 0 Weight 106.594 kg 109.5 kg GENERAL: The patient is lying in bed and is not in acute distress. NEUROLOGICAL: Higher mental function: The patient is awake, alert, oriented to self, place and time. Patient is following commands. No aphasia and no neglect. Has stuttering of speech and is inconsistent. Cranial nerves: The pupils are round, equal and reactive to light and accommodation. Visual alexander are full to confrontation throughout. Extraocular movement is intact no nystagmus is noted. Facial sensation is normal to touch throughout. The facial strength is normal throughout. Hearing is normal bilaterally to hand rub. Tongue is midline and moved [id number] without any difficulty. No dysarthria is noted. Shoulder shrug is normal bilaterally. Motor: The strength is limited on left side because of her cooperation. Patient states she is unable to lift side or have any movement. Upon lifting up her extremity she was resistant and then upon lifting it up above gravity she gently placed it down with a drastic drop. Right sided 5 over 5 throughout. Normal tone and bulk. Cerebellum: Normal finger to nose and heel to tirado on right. Sensation: Sensation is normal to touch throughout. Reflexes (right/left): 2+ Plantars are downgoing bilaterally. Results - Laboratory Findings CBC and BMP: 06/06/24 18:35 06/06/24 18:35 Abnormal Lab Findings: Abnormal Labs 06/06/24 06/06/24 06/07/24 18:35 18:35 11:31 APTT 31.1 H POC Glucose (mg/dL) 133 H Total Protein 6.2 L Assessment and Plan Assessment: This is a 54-year-old woman with history of left-sided weakness, stuttering who had a recent MRI in November 2023 which was normal and it was felt the patient had conversion, who presents for the same symptoms and she states that she is under more stress. Her repeat CT of the head and CT angiography head and neck are unremarkable. Functional/Conversion: acute left-hemiparesis with stuttering. On examination it is inconsistent. More due to her psychiatric issues and states is under stress. Had similar presentation with left-sided weakness and stuttering on November 2023 and had MRI of the brain which was negative for any acute or subacute stroke History of hypertension Diabetes Hyperlipidemia Previous history of DVT and PE and is on Eliquis History of diverticulosis and had history of GI bleed History of bipolar Plan: From neurology perspective there is no contraindication of resuming Eliquis but will defer that final decision to the primary team if needed. Currently the patient is on aspirin 325 daily that was started by the ED physician. If the patient is resumed on Eliquis then no antiplatelet is needed from a neurologic perspective Patient is on Lipitor 80 mg nightly and from a neurologic perspective she does not need to be on a very large dose and can be on 40 mg nightly No MRI of the brain is needed since this is felt more functional. Continue neurochecks PT OT and KOHINOOR OPERATOR are consulted Recommend the patient to follow-up with a neurologist as an outpatient within 2 to 3 weeks and she follows up with Dr. Odell Recommend the patient to follow-up with her psychiatrist. For the rest of the medical management the primary team and other specialist DVT prophylaxis the patient is currently on subcu heparin The plan discussed with the patient and her nurse Thank you for the consultation next Otherwise there is no additional neurological workup. Will sign off. Please reconsult if needed. Time with Patient: Greater than 30
[2024-06-07 16:58] LABS: Glucose,Whole Blood 148 mg/dL (70-110)
[2024-06-07 20:01] LABS: Glucose,Whole Blood 200 mg/dL (70-110)
[2024-06-07] MEDS: clonazePAM 1 MG TAB PO PRN (20:09)
[2024-06-07] MEDS: ATORVASTATIN 80 MG TAB PO SCH (20:09)
[2024-06-07] MEDS: APIXABAN 5 MG TAB PO SCH (20:09)
[2024-06-07] MEDS: MONTELUKAST 10 MG TAB PO SCH (20:09)
[2024-06-07] MEDS: LITHIUM CARBONATE 150 MG CAP PO SCH (20:11)
[2024-06-07] MEDS ORDERED: HEPARIN SODIUM,PORCINE 5,000 UNIT/ML 1 ML VIAL SQ SCH (21:00)
[2024-06-08 06:17] LABS: Glucose,Whole Blood 159 mg/dL (70-110)
[2024-06-08 09:53] VITALS: TEMP 97.8
[2024-06-08] MEDS: FAMOTIDINE 20 MG/2 ML VIAL IV SCH (10:06)
[2024-06-08 11:44] LABS: Glucose,Whole Blood 180 mg/dL (70-110)
[2024-06-08 12:11] VITALS: BP 146/87; PULSE 74
--- NOTE | 2024-06-08 13:11 | P.CRDCN ---
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 REGARDING REASON FOR CARDIOLOGY CONSULT I DONT SEE AN APPROPRIATE INDICATION FOR THIS CONSULT WAITING FOR [facility] TO RESPOND dr scanlon called me back she agrees no cardiac issue that merits cardiac consultation will cancel cardiology consult Past Medical History Past Medical History: Asthma, Chest Pain / Angina, CVA/TIA, Diabetes Mellitus, Deep Vein Thrombosis (DVT), Fibromyalgia, GERD/Reflux, Hyperlipidemia, Hypertension, Liver Disease, Myocardial Infarction ([place]), Pulmonary Embolus (PE) Additional Past Medical History / Comment(s): fibomyalgia, light weakness on left after stroke coming back. mild [place] from EKG unknown time. recent blood in stools. non alcoholic fatty liver,, diverticulosis. Last Myocardial Infarction Date:: unk History of Any Multi-Drug Resistant Organisms: C-DIFF Date of last positivie culture/infection: 2019 MDRO Source:: stool Past Surgical History: Appendectomy, Cholecystectomy, Hysterectomy, Orthopedic Surgery, Tonsillectomy Additional Past Surgical History / Comment(s): left knee replaced. left rotator cuff repair . rt hip stretched bursa. colonoscopies, laproscopic surgery to remove abdominal adhesions, left femur sx Past Anesthesia/Blood Transfusion Reactions: Postoperative Nausea & Vomiting (PONV) Additional Past Anesthesia/Blood Transfusion Reaction / Comment(s): with lap procedure had a hard time waking up. Past Psychological History: Bipolar, Depression Smoking Status: Never smoker Past Alcohol Use History: Rare Past Drug Use History: Marijuana Additional Drug Use History / Comment(s): marijuana vape pen. pt aware not to use 24 hrs before procedure. - Past Family History Mother Family Medical History: Cancer Additional Family Medical History / Comment(s): uterine Father Family Medical History: Cancer Additional Family Medical History / Comment(s): lung Medications and Allergies Home Medications Medication Instructions Recorded Confirmed Type Albuterol Sulfate [Albuterol 2 puff INHALATION RT-Q6H PRN 11/15/22 06/06/24 History Sulfate Hfa] Apixaban [Eliquis] 5 mg PO BID 11/15/22 06/06/24 History Atorvastatin Calcium [Lipitor] 40 mg PO DAILY 11/15/22 06/06/24 History Insulin Aspart [NovoLOG Flexpen] See Protocol SQ AC-TID 11/15/22 06/06/24 History Magnesium Oxide 400 mg PO DAILY 11/15/22 06/06/24 History Montelukast Sodium [Singulair] 10 mg PO HS 11/15/22 06/06/24 History clonazePAM [KlonoPIN] 0.5 mg PO DAILY 11/19/23 06/06/24 History Ranolazine [Ranexa] 500 mg PO BID 11/28/23 06/06/24 History Isosorbide Mononitrate ER [Imdur] 60 mg PO DAILY 12/19/23 06/06/24 History [place] Carbonate 150 mg PO BID #60 cap 12/20/23 06/06/24 Rx traZODone HCL [Desyrel] 50 mg PO HS PRN #30 tab 12/20/23 06/06/24 Rx Insulin Degludec [Tresiba 40 units SQ DAILY 03/15/24 06/06/24 History Flextouch U-100 Pen] dilTIAZem HCL [Tiadylt ER] 180 mg PO DAILY 03/15/24 06/06/24 History Ondansetron Odt [Zofran Odt] 4 mg PO Q8HR PRN #10 tab 05/11/24 06/06/24 Rx Fluticasone Propion/Salmeterol 1 puff INHALATION RT-BID 06/06/24 06/06/24 History [Advair 100-50 Diskus] Insulin Aspart [NovoLOG Flexpen] 17 units SQ AC-TID 06/06/24 06/06/24 History Semaglutide [Ozempic] 0.25 mg SQ TH 06/06/24 06/06/24 History clonazePAM [KlonoPIN] 1 mg PO HS 06/06/24 06/06/24 History methocarbamoL [Robaxin] 500 mg PO Q6H PRN 06/06/24 06/06/24 History Allergies Allergy/AdvReac Type Severity Reaction Status Date / Time adhesive Allergy red skin Verified 06/06/24 20:33 trimethobenzamide Allergy Rash/Hives Verified 06/06/24 20:33 [From Mike] vancomycin Allergy Rash/Hives Verified 06/06/24 20:33 Physical Exam Vitals: Vital Signs Temp Pulse Resp BP Pulse Ox 06/08/24 03:33 98.1 F 68 18 131/81 97 06/07/24 22:59 98.0 F 71 18 128/82 98 06/07/24 19:23 98.1 F 68 18 141/85 98 06/07/24 16:00 98.0 F 60 18 125/75 97 06/07/24 11:26 61 18 129/79 98 Intake and Output 06/07/24 06/08/24 06/08/24 22:59 06:59 14:59 Other: Voiding Method Toilet # Voids 1 1 2 Weight 110.3 kg Results 06/06/24 18:35 06/06/24 18:35 Current Medications Generic Name Dose Route Start Last Admin Trade Name Freq PRN Reason Stop Dose Admin Albuterol Sulfate 2.5 mg 06/07/24 10:44 Albuterol Nebulized 2.5 Mg/3 Ml INHALATION RT-Q6H PRN Shortness Of Breath Apixaban 5 mg 06/07/24 21:00 06/07/24 20:09 Apixaban 5 Mg Tab PO 5 mg BID FRANCISCO JAVIER Administration Protocol Aspirin 325 mg 06/07/24 09:00 06/07/24 08:08 Aspirin 325 Mg Tab PO 325 mg DAILY FRANCISCO JAVIER Administration Atorvastatin Calcium 80 mg 06/07/24 21:00 06/07/24 20:09 Atorvastatin 80 Mg Tab PO 80 mg HS FRANCISCO JAVIER Administration Clonazepam 0.5 mg 06/07/24 10:44 Clonazepam 0.5 Mg Tab PO DAILY PRN Anxiety Clonazepam 1 mg 06/07/24 10:44 06/07/24 20:09 Clonazepam 1 Mg Tab PO 1 mg HS PRN Administration Anxiety Dextrose/Water 25 ml 06/07/24 10:45 Dextrose 50% Syringe 50 Ml IVP PER PROTOCOL PRN Hypoglycemia Protocol Dextrose/Water 50 ml 06/07/24 10:45 Dextrose 50% Syringe 50 Ml IVP PER PROTOCOL PRN Hypoglycemia Protocol Famotidine 20 mg 06/08/24 09:00 Famotidine 20 Mg/2 Ml Vial IV DAILY FRANCISCO JAVIER Sodium Chloride 1,000 mls @ 100 mls/hr 06/06/24 22:45 06/08/24 06:24 Saline 0.9% IV 100 mls/hr .Q10H FRANCISCO JAVIER Administration Insulin Aspart 0 unit 06/07/24 12:30 06/08/24 06:24 Insulin Aspart (Novolog) 100 Unit/Ml Vial SQ 1 unit ACHS FRANCISCO JAVIER Administration Protocol [place] Carbonate 150 mg 06/07/24 21:00 06/07/24 20:11 [place] Carbonate 150 Mg Cap PO 150 mg BID FARNCISCO JAVIER Administration Montelukast Sodium 10 mg 06/07/24 21:00 06/07/24 20:09 Montelukast 10 Mg Tab PO 10 mg HS FRANCISCO JAVIER Administration Morphine Sulfate 4 mg 06/07/24 10:27 06/07/24 23:25 Morphine Sulfate 4 Mg/Ml Syringe IVP 4 mg Q4HR PRN Administration Pain Ondansetron HCl 4 mg 06/07/24 02:07 06/07/24 08:07 Ondansetron 4 Mg/2 Ml Vial IVP 4 mg Q6HR PRN Administration Nausea And Vomiting Trazodone HCl 50 mg 06/07/24 10:44 Trazodone Hcl 50 Mg Tab PO HS PRN Insomnia Intake and Output 06/07/24 06/08/24 06/08/24 22:59 06:59 14:59 Other: Voiding Method Toilet # Voids 1 1 2 Weight 110.3 kg 06/06/24 18:35 06/06/24 18:35
[2024-06-08 16:16] LABS: Glucose,Whole Blood 180 mg/dL (70-110)
== END 2024-06-08 16:33 | disposition home or self-care (01) | DRG 65 ==
LOC: EC 18:06 → 3SCARD 22:44
PROVIDERS: ADMIT Hospitalist; ATTEND Hospitalist
DX: I63.9 Cerebral infarction, unspecified (principal); G81.94 Hemiplegia, unspecified affecting left nondominant side; E11.9 Type 2 diabetes mellitus without complications; I48.91 Unspecified atrial fibrillation; Z79.4 Long term (current) use of insulin; E03.9 Hypothyroidism, unspecified; E66.9 Obesity, unspecified; J45.909 Unspecified asthma, uncomplicated; I10 Essential (primary) hypertension; H53.2 Diplopia; M79.7 Fibromyalgia; K21.9 Gastro-esophageal reflux disease without esophagitis; E78.5 Hyperlipidemia, unspecified; R29.810 Facial weakness; R47.82 Fluency disorder in conditions classified elsewhere; R47.81 Slurred speech; Z68.39 Body mass index [BMI] 39.0-39.9, adult; Z79.01 Long term (current) use of anticoagulants; Z79.51 Long term (current) use of inhaled steroids; Z79.85 Long-term (current) use of injectable non-insulin antidiabetic drugs; I25.2 Old myocardial infarction; Z86.718 Personal history of other venous thrombosis and embolism; Z86.711 Personal history of pulmonary embolism; Z79.899 Other long term (current) drug therapy; Z88.1 Allergy status to other antibiotic agents; Z91.048 Other nonmedicinal substance allergy status; Z88.8 Allergy status to other drugs, medicaments and biological substances; Z86.73 Personal history of transient ischemic attack (TIA), and cerebral infarction without residual deficits
CPT/HCPCS: 36415; 70450; 70496; 70498; 80053; 80061; 83036; 83605; 83735; 84100; 84484; 85025; 85610; 85730; 93005; 93306; 93880; 96361; 96374; 96375; 96376; 99285

== ENCOUNTER → 2024-07-24 | Outpatient (CLI) | payer MEDICARE, OTHER | END | disposition home or self-care (01) | LOC: LABWHC1 11:50 | PROVIDERS: ATTEND Family Medicine | DX: F31.32 Bipolar disorder, current episode depressed, moderate (principal) | CPT/HCPCS: 36415; 80178 ==

== ENCOUNTER → 2024-07-27 | Outpatient (CLI) | payer MEDICARE, OTHER ==
[2024-07-27 23:16] LABS: Cryptosporidium Antigen Negative (Negative)
== END | disposition home or self-care (01) ==
LOC: LABWHC1 11:05
PROVIDERS: ATTEND Nurse Practitioner Family
DX: R19.7 Diarrhea, unspecified (principal)
CPT/HCPCS: 83630; 83993; 87045; 87046; 87328; 87329

== ENCOUNTER 2024-08-03 03:11 | Emergency (ER) | payer MEDICARE, OTHER ==
[2024-08-03 03:19] VITALS: TEMP 101.8
--- NOTE | 2024-08-03 03:34 | ED ---
General Adult HPI - General Chief complaint: Shortness of Breath Stated complaint: COVID Time Seen by Provider: 08/03/24 03:15 Source: patient Mode of arrival: EMS Limitations: no limitations - History of Present Illness Initial comments: Dictation was produced using [email or web address] dictation software. please excuse any grammatical, word or spelling errors. Chief Complaint: 54-year-old female presents to the emergency department for COVID History of Present Illness: Patient is a 54-year-old female with multiple comorbidities states that she has COPD. For the last 2 days she has been having shortness of breath cough sore throat. Patient was diagnosed with COVID-19 at urgent care 2 days ago. Patient states she feels short of breath. She has been taking Tylenol for fevers. The ROS documented in this emergency department record has been reviewed and confirmed by me. Those systems with pertinent positive or negative responses have been documented in the HPI. All other systems are other negative and/or noncontributory. - Related Data Home Medications Medication Instructions Recorded Confirmed Albuterol Sulfate [Albuterol 2 puff INHALATION RT-Q6H PRN 11/15/22 06/06/24 Sulfate Hfa] Apixaban [Eliquis] 5 mg PO BID 11/15/22 06/06/24 Atorvastatin Calcium [Lipitor] 40 mg PO DAILY 11/15/22 06/06/24 Insulin Aspart [NovoLOG Flexpen] See Protocol SQ AC-TID 11/15/22 06/06/24 Magnesium Oxide 400 mg PO DAILY 11/15/22 06/06/24 Montelukast Sodium [Singulair] 10 mg PO HS 11/15/22 06/06/24 clonazePAM [KlonoPIN] 0.5 mg PO DAILY 11/19/23 06/06/24 Ranolazine [Ranexa] 500 mg PO BID 11/28/23 06/06/24 Isosorbide Mononitrate ER [Imdur] 60 mg PO DAILY 12/19/23 06/06/24 Insulin Degludec [Tresiba 40 units SQ DAILY 03/15/24 06/06/24 Flextouch U-100 Pen] dilTIAZem HCL [Tiadylt ER] 180 mg PO DAILY 03/15/24 06/06/24 Fluticasone Propion/Salmeterol 1 puff INHALATION RT-BID 06/06/24 06/06/24 [Advair 100-50 Diskus] Insulin Aspart [NovoLOG Flexpen] 17 units SQ AC-TID 06/06/24 06/06/24 Semaglutide [Ozempic] 0.25 mg SQ TH 06/06/24 06/06/24 clonazePAM [KlonoPIN] 1 mg PO HS 06/06/24 06/06/24 methocarbamoL [Robaxin] 500 mg PO Q6H PRN 06/06/24 06/06/24 Previous Rx's Medication Instructions Recorded [place] Carbonate 150 mg PO BID #60 cap 12/20/23 traZODone HCL [Desyrel] 50 mg PO HS PRN #30 tab 12/20/23 Ondansetron Odt [Zofran ODT] 4 mg PO Q8HR PRN #10 tab 05/11/24 Allergies Allergy/AdvReac Type Severity Reaction Status Date / Time adhesive Allergy red skin Verified 08/03/24 03:19 trimethobenzamide Allergy Rash/Hives Verified 08/03/24 03:19 [From Tigan] vancomycin Allergy Rash/Hives Verified 08/03/24 03:19 Review of Systems ROS Statement: Those systems with pertinent positive or pertinent negative responses have been documented in the HPI. ROS Other: All systems not noted in ROS Statement are negative. Past Medical History Past Medical History: Asthma, Chest Pain / Angina, CVA/TIA, Diabetes Mellitus, Deep Vein Thrombosis (DVT), Fibromyalgia, GERD/Reflux, Hyperlipidemia, Hypertension, Liver Disease, Myocardial Infarction ([place]), Pulmonary Embolus (PE) Additional Past Medical History / Comment(s): fibomyalgia, light weakness on left after stroke coming back. mild [place] from EKG unknown time. recent blood in stools. non alcoholic fatty liver,, diverticulosis. Last Myocardial Infarction Date:: unk History of Any Multi-Drug Resistant Organisms: C-DIFF Date of last positivie culture/infection: 2019 MDRO Source:: stool Past Surgical History: Appendectomy, Cholecystectomy, Hysterectomy, Orthopedic Surgery, Tonsillectomy Additional Past Surgical History / Comment(s): left knee replaced. left rotator cuff repair . rt hip stretched bursa. colonoscopies, laproscopic surgery to remove abdominal adhesions, left femur sx Past Anesthesia/Blood Transfusion Reactions: Postoperative Nausea & Vomiting (PONV) Additional Past Anesthesia/Blood Transfusion Reaction / Comment(s): with lap procedure had a hard time waking up. Past Psychological History: Bipolar, Depression Smoking Status: Never smoker Past Alcohol Use History: Rare Past Drug Use History: Marijuana - Past Family History Mother Family Medical History: Cancer Additional Family Medical History / Comment(s): uterine Father Family Medical History: Cancer Additional Family Medical History / Comment(s): lung General Exam - General Exam Comments Initial Comments: PHYSICAL EXAM: General Impression: Alert and oriented x3, not in acute distress HEENT: Normocephalic atraumatic, extra-ocular movements intact, pupils equal and reactive to light bilaterally, mucous membranes moist. Cardiovascular: Heart regular rate and rhythm Chest: Able to complete full sentences, no retractions, no tachypnea Abdomen: abdomen soft, non-tender, non-distended, no organomegaly Musculoskeletal: Pulses present and equal in all extremities, no peripheral edema Motor: no focal deficits noted Neurological: CN II-XII grossly intact, no focal motor or sensory deficits noted Skin: Intact with no visualized rashes Psych: Normal affect and mood Limitations: no limitations Course Vital Signs 08/03/24 08/03/24 03:14 04:16 Temperature 101.8 F H Pulse Rate 85 Respiratory 18 18 Rate O2 Sat by Pulse 97 Oximetry EKG Findings - EKG Comments: EKG Findings:: My EKG interpretation: Ventricular rate 57, sinus bradycardia, DE interval 147, QRS 80, QTc 435. No DE prolongation, no QTC prolongation, no ST or T-wave changes noted. Overall, this EKG is unremarkable Medical Decision Making - Medical Decision Making Was pt. sent in by a medical professional or institution (, PA, GAS GENERATOR OPERATOR, urgent care, hospital, or senior living...) When possible be specific @ -No Did you speak to anyone other than the patient for history (EMS, parent, family, police, friend...)? What history was obtained from this source @ -No Did you review nursing and triage notes (agree or disagree)? Why? @ -I reviewed and agree with nursing and triage notes Were old charts reviewed (outside hosp., previous admission, EMS record, old EKG, old radiological studies, urgent care reports/EKG's, senior living records)? Report findings @ -No old charts were reviewed Differential Diagnosis (chest pain, altered mental status, abdominal pain women, abdominal pain men, vaginal bleeding, musculoskeletal, weakness, fever, dyspnea, syncope, headache, dizziness, GI bleed, back pain, seizure, CVA, palpatations, m ental health)? @ -Differential Dyspnea: Coronary syndrome, arrhythmia, tamponade, asthma, COPD, pulmonary embolism, pneumonia, pneumothorax, pulmonary effusion, anaphylaxis, diabetic ketoacidosis, flailed chest, pulmonary contusion, diaphragmatic rupture, anemia, neuromuscular, this is not meant to be an all-inclusive list. EKG interpreted by me (3pts min.). @ -None done X-rays interpreted by me (1pt min.). @ -Chest x-ray shows no acute processes CT interpreted by me (1pt min.). @ -None done U/S interpreted by me (1pt. min.). @ -None done What testing was considered but not performed or refused? (CT, X-rays, U/S, labs)? Why? @ -None What meds were considered but not given or refused? Why? @ -None Was smoking cessation discussed for >3mins.? @ -No Were there social determinants of health that impacted care today? How? (Homelessness, low income, unemployed, alcoholism, drug addiction, transportation, low edu. Level, literacy, decrease access to med. care, care home, rehab)? @ -No Was there de-escalation of care discussed even if they declined (Discuss DNR or withdrawal of care, Hospice)? DNR status @ -No What co-morbidities impacted this encounter? (DM, HTN, Smoking, COPD, CAD, Cancer, CVA, ARF, Chemo, Hep., AIDS, mental health diagnosis, sleep apnea, morbid obesity)? @ -None Was patient admitted / discharged? Hospital course, mention meds given and route, prescriptions, significant lab abnormalities, going to OR and other pertinent info. @ -54-year-old female with multiple comorbidities presents to the emergency department for shortness of breath secondary to recent diagnosis of COVID-19. Vital signs stable. Patient not hypoxic. Patient febrile to 101.8. Laboratory evaluation obtained. CBC, metabolic panel is unremarkable. Chest x-ray is nonacute. Patient observed emergency department for approximately 2 hours and 17 minutes. Reevaluated bedside at 5:30 AM found to be stable medical addition. Patient's vitals are improved. Patient discharged advised follow-up with primary care doctor. Patient not a candidate for Paxlovid due to multiple drug reactions. Patient given return precautions. Did you discuss the management of the patient with other professionals (professionals i.e. , PA, GAS GENERATOR OPERATOR, lab, RT, psych nurse, social welfare administrator, software test technician, teacher, aviation ordnance officer, field case manager)? Give summary @ -No Was critical care preformed (if so, how long)? @ -No Undiagnosed new problem with uncertain prognosis? @ -No Drug Therapy requiring intensive monitoring for toxicity (Heparin, Nitro, Insulin, Cardizem)? @ -No Were any procedures done? @ -No Diagnosis/symptom? Acute, or Chronic, or Acute on Chronic? Uncomplicated (without systemic symptoms) or Complicated (systemic symptoms)? @ -Coronavirus Side effects of treatment? @ -No Exacerbation, Progression, or Severe Exacerbation? @ -No Poses a threat to life or bodily function? How? (Chest pain, [place], CA, pneumonia, PE, COPD, DKA, ARF, appy, cholecystitis, CVA, Diverticulitis, Homicidal, S uicidal, threat to staff... and all critical care pts) @ -No - Lab Data Result diagrams: 08/03/24 04:38 08/03/24 04:38 Lab Results 08/03/24 08/03/24 Range/Units 04:38 04:38 WBC 4.6 (3.8-10.6) k/uL RBC 4.58 (3.80-5.40) m/uL Hgb 13.5 (11.4-16.0) gm/dL Hct 42.0 (34.0-46.0) % MCV 91.6 (80.0-100.0) fL MCH 29.5 (25.0-35.0) pg MCHC 32.1 (31.0-37.0) g/dL RDW 12.5 (11.5-15.5) % Plt Count 217 (150-450) k/uL MPV 7.4 Neutrophils % 70 % Lymphocytes % 19 % Monocytes % 7 % Eosinophils % 3 % Basophils % 1 % Neutrophils # 3.2 (1.3-7.7) k/uL Lymphocytes # 0.9 L (1.0-4.8) k/uL Monocytes # 0.3 (0-1.0) k/uL Eosinophils # 0.1 (0-0.7) k/uL Basophils # 0.0 (0-0.2) k/uL Sodium 139 (137-145) mmol/L Potassium 4.2 (3.5-5.1) mmol/L Chloride 107 (98-107) mmol/L Carbon Dioxide 26 (22-30) mmol/L Anion Gap 6 mmol/L BUN 16 (7-17) mg/dL Creatinine 0.66 (0.52-1.04) mg/dL Est GFR (CKD-EPI)AfAm >90 (>60 ml/min/1.73 sqM) Est GFR (CKD-EPI)NonAf >90 (>60 ml/min/1.73 sqM) Glucose 184 H (74-99) mg/dL Calcium 9.5 (8.4-10.2) mg/dL Disposition Clinical Impression: Coronavirus infection Disposition: HOME SELF-CARE Condition: Fair Instructions (If sedation given, give patient instructions): Coronavirus Disease 2019 (COVID-19) Is patient prescribed a controlled substance at d/c from ED?: No Referrals: Brayden Valdovinos DO [Primary Care Provider] - 1-2 days Time of Disposition: 05:30
[2024-08-03] MEDS: KETOROLAC 15 MG/ML 1 ML VIAL IVP STA (04:40)
[2024-08-03] MEDS: ONDANSETRON 4 MG/2 ML VIAL IVP STA (04:41)
[2024-08-03 04:43] LABS: Basophils % (A) 1 %; Eosinophils # (A) 0.1 k/uL (0-0.7); Eosinophils % (A) 3 %; HGB 13.5 gm/dL (11.4-16.0); Lymphocytes # (A) 0.9 k/uL (1.0-4.8); Lymphocytes % (A) 19 %; MCH 29.5 pg (25.0-35.0); MCHC 32.1 g/dL (31.0-37.0); MCV 91.6 fL (80.0-100.0); Mean Platelet Volume 7.4; Monocytes # (A) 0.3 k/uL (0-1.0); Monocytes % (A) 7 %; Neutrophils # (A) 3.2 k/uL (1.3-7.7); Neutrophils % (A) 70 %; Platelet Count 217 k/uL (150-450); RBC 4.58 m/uL (3.80-5.40); RDW 12.5 % (11.5-15.5); WBC 4.6 k/uL (3.8-10.6)
[2024-08-03] MEDS: ACETAMINOPHEN TAB 500 MG TAB PO STA (05:00)
[2024-08-03 05:19] LABS: African American GFR (CKD) >90 (>60 ml/min/1.73 sqM); Anion Gap 6 mmol/L; Blood Urea Nitrogen 16 mg/dL (7-17); Calcium 9.5 mg/dL (8.4-10.2); Carbon Dioxide 26 mmol/L (22-30); Chloride 107 mmol/L (98-107); Glucose 184 mg/dL (74-99); Non-African American GFR(CKD) >90 (>60 ml/min/1.73 sqM); Potassium 4.2 mmol/L (3.5-5.1); Sodium 139 mmol/L (137-145)
[2024-08-03] MEDS: DEXAMETHASONE SOD PHOSPHATE 10 MG/ML 1 ML VIAL IV STA (05:44)
[2024-08-03 05:47] VITALS: BP 151/74; PULSE 69; RESP 15
--- NOTE | 2024-08-03 07:42 | XR ---
EXAMINATION TYPE: XR chest 2V DATE OF EXAM: 08/03/2024 COMPARISON: 12/19/2023 HISTORY: Chest pain TECHNIQUE: Frontal and lateral views of the chest are obtained. FINDINGS: There is no focal air space opacity. No evidence for pneumothorax. No pleural effusion. The cardiac silhouette size is within normal limits. The osseous structures are grossly intact. IMPRESSION: 1. No acute cardiopulmonary process.
== END 2024-08-03 05:59 | disposition home or self-care (01) ==
LOC: EC 03:11
DX: U07.1 COVID-19 (principal)
CPT/HCPCS: 36415; 71046; 80048; 85025; 99284

== ENCOUNTER 2024-08-25 02:00 | Observation (INO) | payer MEDICARE ==
--- NOTE | 2024-08-25 03:47 | ED ---
General Adult HPI - General Chief complaint: Dizziness Stated complaint: Headache dizziness Time Seen by Provider: 08/25/24 02:05 Source: patient Mode of arrival: ambulatory Limitations: no limitations - History of Present Illness Initial comments: 54-year-old female presents emergency room reporting headache and chest pain. States that symptoms started earlier today. She feels as if she has a prominent bump on her forehead. Admits to visual disturbance. States that her vision is dizzy and blurred. She has associated nausea with vomiting. Does admit to a history of migraine headaches and takes Robaxin. This headache is worse in com parison to her typical headaches. Denies fevers or chills. No midline neck pain. 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, precipitating modifying factors - Related Data Home Medications Medication Instructions Recorded Confirmed Albuterol Sulfate [Albuterol 2 puff INHALATION RT-Q6H PRN 11/15/22 08/25/24 Sulfate Hfa] Apixaban [Eliquis] 5 mg PO BID 11/15/22 08/25/24 Atorvastatin Calcium [Lipitor] 40 mg PO DAILY 11/15/22 08/25/24 Insulin Aspart [NovoLOG Flexpen] See Protocol SQ AC-TID PRN 11/15/22 08/25/24 Montelukast Sodium [Singulair] 10 mg PO HS 11/15/22 08/25/24 Ranolazine [Ranexa] 500 mg PO BID 11/28/23 08/25/24 Isosorbide Mononitrate ER [Imdur] 60 mg PO DAILY 12/19/23 08/25/24 Insulin Degludec [Tresiba 44 units SQ DAILY 03/15/24 08/25/24 Flextouch U-100 Pen] Fluticasone Propion/Salmeterol 1 puff INHALATION RT-BID PRN 06/06/24 08/25/24 [Advair 100-50 Diskus] Insulin Aspart [NovoLOG Flexpen] 17 units SQ AC-TID PRN 06/06/24 08/25/24 Semaglutide [Ozempic] 0.25 mg SQ TH 06/06/24 08/25/24 Dapagliflozin Propanediol [Farxiga] 10 mg PO DAILY 08/25/24 08/25/24 [place] Carbonate 300 mg PO BID 08/25/24 08/25/24 Nystatin 100,000Unit/gm Cream 1 applic TOPICAL BID 08/25/24 08/25/24 [Mycostatin Cream] clonazePAM [KlonoPIN] 0.5 mg PO BID 08/25/24 08/25/24 dilTIAZem HCL [Tiazac] 180 mg PO DAILY 08/25/24 08/25/24 Previous Rx's Medication Instructions Recorded traZODone HCL [Desyrel] 50 mg PO HS PRN #30 tab 12/20/23 Allergies Allergy/AdvReac Type Severity Reaction Status Date / Time adhesive Allergy red skin Verified 08/25/24 11:17 trimethobenzamide Allergy Rash/Hives Verified 08/25/24 11:17 [From Tigan] vancomycin Allergy Rash/Hives Verified 08/25/24 11:17 Review of Systems ROS Statement: Those systems with pertinent positive or pertinent negative responses have been documented in the HPI. ROS Other: All systems not noted in ROS Statement are negative. Past Medical History Past Medical History: Asthma, Chest Pain / Angina, CVA/TIA, Diabetes Mellitus, Deep Vein Thrombosis (DVT), Fibromyalgia, GERD/Reflux, Hyperlipidemia, Hypertension, Liver Disease, Myocardial Infarction (NV), Pulmonary Embolus (PE) Additional Past Medical History / Comment(s): fibomyalgia, light weakness on left after stroke coming back. mild NV from EKG unknown time. recent blood in stools. non alcoholic fatty liver,, diverticulosis. Last Myocardial Infarction Date:: unk History of Any Multi-Drug Resistant Organisms: C-DIFF Date of last positivie culture/infection: 2019 MDRO Source:: stool Past Surgical History: Appendectomy, Cholecystectomy, Hysterectomy, Orthopedic Surgery, Tonsillectomy Additional Past Surgical History / Comment(s): left knee replaced. left rotator cuff repair . rt hip stretched bursa. colonoscopies, laproscopic surgery to remove abdominal adhesions, left femur sx Past Anesthesia/Blood Transfusion Reactions: Postoperative Nausea & Vomiting (PONV) Additional Past Anesthesia/Blood Transfusion Reaction / Comment(s): with lap procedure had a hard time waking up. Past Psychological History: Bipolar, Depression Smoking Status: Never smoker Past Alcohol Use History: Rare Past Drug Use History: Marijuana - Past Family History Mother Family Medical History: Cancer Additional Family Medical History / Comment(s): uterine Father Family Medical History: Cancer Additional Family Medical History / Comment(s): lung General Exam Limitations: no limitations General appearance: alert, in no apparent distress Head exam: Present: atraumatic, normocephalic, normal inspection Eye exam: Present: normal appearance, PERRL, EOMI. Absent: scleral icterus, conjunctival injection, periorbital swelling ENT exam: Present: normal exam, mucous membranes moist Neck exam: Present: normal inspection. Absent: tenderness, meningismus, lymphadenopathy Respiratory exam: Present: normal lung sounds bilaterally. Absent: respiratory distress, wheezes, rales, rhonchi, stridor Cardiovascular Exam: Present: regular rate, normal rhythm, normal heart sounds. Absent: systolic murmur, diastolic murmur, rubs, gallop, clicks GI/Abdominal exam: Present: soft, normal bowel sounds. Absent: distended, tenderness, guarding, rebound, rigid Extremities exam: Present: normal inspection, full ROM, normal capillary refill. Absent: tenderness, pedal edema, joint swelling, calf tenderness Back exam: Present: normal inspection Neurological exam: Present: alert, oriented X3, CN II-XII intact Psychiatric exam: Present: normal affect, normal mood Skin exam: Present: warm, dry, intact, normal color. Absent: rash Course Vital Signs 08/25/24 08/25/24 08/25/24 02:02 04:00 07:39 Temperature 97.9 F 98.2 F Pulse Rate 84 65 62 Respiratory 18 20 16 Rate Blood Pressure 152/81 116/56 153/75 O2 Sat by Pulse 99 99 94 L Oximetry 08/25/24 11:41 Temperature Pulse Rate 72 Respiratory 16 Rate Blood Pressure 157/68 O2 Sat by Pulse 97 Oximetry Medical Decision Making - Medical Decision Making Was pt. sent in by a medical professional or institution (, PA, [facility], urgent c are, hospital, or group home...) When possible be specific @ -No Did you speak to anyone other than the patient for history (EMS, parent, family, police, friend...)? What history was obtained from this source @ -No Did you review nursing and triage notes (agree or disagree)? Why? @ -I reviewed and agree with nursing and triage notes Were old charts reviewed (outside hosp., previous admission, EMS record, old EKG, old radiological studies, urgent care reports/EKG's, group home records)? Report findings @ -No old charts were reviewed Differential Diagnosis (chest pain, altered mental status, abdominal pain women, abdominal pain men, vaginal bleeding, weakness, fever, dyspnea, syncope, headache, dizziness, GI bleed, back pain, seizure, CVA, palpatations, mental health, musculoskeletal)? @ -Differential Dizziness: Benign paroxysmal positional Vertigo, Meniere's disease, otitis media, acoustic neuroma, vertebrobasilar insufficiency, cerebellar stroke, encephalitis, hypovolemic, arrhythmia, coronary artery syndrome, anemia, this is not meant to be an all-inclusive list Yes and demonstrates no acute process and EKG interpreted by me (3pts min.). @ -Yes and demonstrates sinus rhythm with rate of 69. MS interval 132. QRS 94. QTc of 433. No acute ST segment elevations or depressions X-rays interpreted by me (1pt min.). @ -Yes and demonstrates no acute process CT interpreted by me (1pt min.). @ yes and demonstrates no acute process U/S interpreted by me (1pt. min.). @ -None done What testing was considered but not performed or refused? (CT, X-rays, U/S, labs)? Why? @ -None What meds were considered but not given or refused? Why? @ -None Did you discuss the management of the patient with other professionals (professionals i.e. , PA, [facility], lab, RT, psych nurse, health care social worker, ice crusher, teacher, administrative services officer, mental health case manager)? Give summary @ -Spoke with Amber from [facility] Was smoking cessation discussed for >3mins.? @ -No Was critical care preformed (if so, how long)? @ -No Were there social determinants of health that impacted care today? How? (Homelessness, low income, unemployed, alcoholism, drug addiction, transportation, low edu. Level, literacy, decrease access to med. care, shelter, rehab)? @ -No Was there de-escalation of care discussed even if they declined (Discuss DNR or withdrawal of care, Hospice)? DNR status @ -No What co-morbidities impacted this encounter? (DM, HTN, Smoking, COPD, CAD, Cancer, CVA, ARF, Chemo, Hep., AIDS, mental health diagnosis, sleep apnea, morbid obesity)? @ -None Was patient admitted / discharged? Hospital course, mention meds given and route, prescriptions, significant lab abnormalities, going to OR and other pertinent info. @ -Upon arrival patient placed into room 14. Thorough history and physical exam was performed. Access was established. Laboratory studies were conducted. CT of the brain and chest x-ray were performed. Results are discussed with the patient. Patient was given a migraine cocktail and continues to have a headache. She was given additional pain medications and continues to state that she has a significant headache. I did recommend admission for neurology consultation. Patient was agreeable to this. Taken to the floor in stable condition. Amber did accept the patient from [facility] Undiagnosed new problem with uncertain prognosis? @ -No Drug Therapy requiring intensive monitoring for toxicity (Heparin, Nitro, Insulin, Cardizem)? @ -No Were any procedures done? @ -No Diagnosis/symptom? @ -Acute migraine, acute chest pain Acute, or Chronic, or Acute on Chronic? @ -Acute Uncomplicated (without systemic symptoms) or Complicated (systemic symptoms)? @ -Complicated Side effects of treatment? @ -No Exacerbation, Progression, or Severe Exacerbation? @ -No Poses a threat to life or bodily function? How? (Chest pain, USA, NV, pneumonia, PE, COPD, DKA, ARF, appy, cholecystitis, CVA, Diverticulitis, Homicidal, Suicidal, threat to staff... and all critical care pts) @ -No - Lab Data Result diagrams: 08/26/24 03:36 08/26/24 03:36 Lab Results 08/25/24 08/25/24 08/25/24 Range/Units 03:00 03:00 03:00 WBC 6.0 (3.8-10.6) k/uL RBC 4.60 (3.80-5.40) m/uL Hgb 13.8 (11.4-16.0) gm/dL Hct 41.2 (34.0-46.0) % MCV 89.4 (80.0-100.0) fL MCH 30.0 (25.0-35.0) pg MCHC 33.6 (31.0-37.0) g/dL RDW 13.0 (11.5-15.5) % Plt Count 220 (150-450) k/uL MPV 9.4 Neutrophils % 57 % Lymphocytes % 32 % Monocytes % 6 % Eosinophils % 3 % Basophils % 0 % Neutrophils # 3.5 (1.3-7.7) k/uL Lymphocytes # 1.9 (1.0-4.8) k/uL Monocytes # 0.4 (0-1.0) k/uL Eosinophils # 0.2 (0-0.7) k/uL Basophils # 0.0 (0-0.2) k/uL Sodium 138 (137-145) mmol/L Potassium 4.6 (3.5-5.1) mmol/L Chloride 109 H (98-107) mmol/L Carbon Dioxide 25 (22-30) mmol/L Anion Gap 4 mmol/L BUN 13 (7-17) mg/dL Creatinine 0.68 (0.52-1.04) mg/dL Est GFR (CKD-EPI)AfAm >90 (>60 ml/min/1.73 sqM) Est GFR (CKD-EPI)NonAf >90 (>60 ml/min/1.73 sqM) Glucose 148 H (74-99) mg/dL Calcium 9.5 (8.4-10.2) mg/dL Magnesium 1.8 (1.6-2.3) mg/dL Total Bilirubin 1.1 (0.2-1.3) mg/dL AST 34 (14-36) U/L ALT 21 (4-34) U/L Alkaline Phosphatase 81 (38-126) U/L Troponin I 0.015 (0.000-0.034) ng/mL Total Protein 6.6 (6.3-8.2) g/dL Albumin 4.2 (3.5-5.0) g/dL Vitamin B12 (200.0-944.0) pg/mL Folate (4.40-31.00) ng/mL [place] mmol/L 08/25/24 08/25/24 08/25/24 Range/Units 03:00 03:00 03:00 WBC (3.8-10.6) k/uL RBC (3.80-5.40) m/uL Hgb (11.4-16.0) gm/dL Hct (34.0-46.0) % MCV (80.0-100.0) fL MCH (25.0-35.0) pg MCHC (31.0-37.0) g/dL RDW (11.5-15.5) % Plt Count (150-450) k/uL MPV Neutrophils % % Lymphocytes % % Monocytes % % Eosinophils % % Basophils % % Neutrophils # (1.3-7.7) k/uL Lymphocytes # (1.0-4.8) k/uL Monocytes # (0-1.0) k/uL Eosinophils # (0-0.7) k/uL Basophils # (0-0.2) k/uL Sodium (137-145) mmol/L Potassium (3.5-5.1) mmol/L Chloride (98-107) mmol/L Carbon Dioxide (22-30) mmol/L Anion Gap mmol/L BUN (7-17) mg/dL Creatinine (0.52-1.04) mg/dL Est GFR (CKD-EPI)AfAm (>60 ml/min/1.73 sqM) Est GFR (CKD-EPI)NonAf (>60 ml/min/1.73 sqM) Glucose (74-99) mg/dL Calcium (8.4-10.2) mg/dL Magnesium (1.6-2.3) mg/dL Total Bilirubin (0.2-1.3) mg/dL AST (14-36) U/L ALT (4-34) U/L Alkaline Phosphatase (38-126) U/L Troponin I (0.000-0.034) ng/mL Total Protein (6.3-8.2) g/dL Albumin (3.5-5.0) g/dL Vitamin B12 510.0 (200.0-944.0) pg/mL Folate >20.00 (4.40-31.00) ng/mL [place] 0.7 mmol/L Disposition Clinical Impression: Headache, Lightheaded Disposition: ADMITTED IP TO THIS [facility] Condition: Stable Is patient prescribed a controlled substance at d/c from ED?: No Time of Disposition: 07:44 Decision to Admit Reason: Admit from EC Decision Date: 08/25/24 Decision Time: 07:45
[2024-08-25] MEDS: SODIUM CHLORIDE 0.9% 1,000 ML IV STA (04:19)
[2024-08-25] MEDS: DEXAMETHASONE SOD PHOSPHATE 10 MG/ML 1 ML VIAL IVP STA (04:20)
[2024-08-25] MEDS: diphenhydrAMINE 50 MG/ML 1 ML VIAL IVP STA (04:20)
[2024-08-25] MEDS: METOCLOPRAMIDE 5 MG/ML 2 ML VIAL IVP STA (04:21)
[2024-08-25] MEDS: KETOROLAC 15 MG/ML 1 ML VIAL IVP STA (04:21)
[2024-08-25] MEDS: MAGNESIUM SULFATE-D5W PMX 1 GM in DEXTROSE/WATER 1 100ML.BAG IVPB ONE (04:22)
[2024-08-25 04:31] LABS: Basophils % (A) 0 %; Eosinophils # (A) 0.2 k/uL (0-0.7); Eosinophils % (A) 3 %; HCT 41.2 % (34.0-46.0); HGB 13.8 gm/dL (11.4-16.0); Lymphocytes # (A) 1.9 k/uL (1.0-4.8); Lymphocytes % (A) 32 %; MCHC 33.6 g/dL (31.0-37.0); MCV 89.4 fL (80.0-100.0); Mean Platelet Volume 9.4; Monocytes # (A) 0.4 k/uL (0-1.0); Monocytes % (A) 6 %; Neutrophils # (A) 3.5 k/uL (1.3-7.7); Neutrophils % (A) 57 %; Platelet Count 220 k/uL (150-450)
[2024-08-25 04:48] LABS: ALT 21 U/L (4-34); AST 34 U/L (14-36); African American GFR (CKD) >90 (>60 ml/min/1.73 sqM); Albumin 4.2 g/dL (3.5-5.0); Alkaline Phosphatase 81 U/L (38-126); Anion Gap 4 mmol/L; Blood Urea Nitrogen 13 mg/dL (7-17); Calcium 9.5 mg/dL (8.4-10.2); Carbon Dioxide 25 mmol/L (22-30); Chloride 109 mmol/L (98-107); Glucose 148 mg/dL (74-99); Magnesium 1.8 mg/dL (1.6-2.3); Non-African American GFR(CKD) >90 (>60 ml/min/1.73 sqM); Sodium 138 mmol/L (137-145); Total Bilirubin 1.1 mg/dL (0.2-1.3); Total Protein 6.6 g/dL (6.3-8.2)
[2024-08-25 05:11] LABS: Potassium 4.6 mmol/L (3.5-5.1)
[2024-08-25] MEDS: HYDROmorphone 1 MG/ML 1 ML SYRINGE IVP STA (06:54)
--- NOTE | 2024-08-25 07:18 | CT ---
EXAMINATION TYPE: CT brain wo con DATE OF EXAM: 08/25/2024 COMPARISON: 06/06/2024 INDICATION: Patient states she has a bump on her head. Denies injury. States she is dizzy, blurred vi mulu, and has nausea. DLP: 1184.5 mGycm, Automated exposure control for dose reduction was used. CONTRAST: None CT of the brain is performed utilizing 3 mm thick sections through the posterior fossa and 3 mm thick sections through the remaining calvarium. Study is performed within 24 hours of arrival to the hosp ital. No abnormal hyperdensity is present to suggest an acute intracranial hemorrhage. No mass lesion is evident. No acute infarcts are evident. There is an old lacunar infarct or Virchow-Jaron space left basal gang lion, stable from comparison. Ventricles and sulci are appropriate for the patient age. Paranasal sinuses and mastoid air cells within the [id number] are clear. IMPRESSION: 1. No acute intracranial process. Follow up MRI can be performed as clinically indicated. 2. No suspicious facial swelling identified. [facility], Workstation: [facility], 08/25/2024 7:16 AM
--- NOTE | 2024-08-25 07:37 | XR ---
EXAMINATION TYPE: XR chest 2V DATE OF EXAM: 08/25/2024 COMPARISON: 08/03/2024 INDICATION: Chest pain TECHNIQUE: Frontal and lateral views of the chest are obtained. FINDINGS: The heart size is normal. The pulmonary vasculature is normal. The lungs are clear. IMPRESSION: 1. No acute pulmonary process. [facility], Workstation: [facility], 08/25/2024 7:35 AM
[2024-08-25] MEDS ORDERED: NALOXONE 0.4 MG/ML 1 ML VIAL IV PRN (07:45)
[2024-08-25] MEDS ORDERED: KETOROLAC 15 MG/ML 1 ML VIAL IVP PRN (07:45)
[2024-08-25] MEDS ORDERED: traZODone HCL 50 MG TAB PO PRN (12:36)
[2024-08-25] MEDS ORDERED: Acetaminophen-Codeine 300-30mg TAB PO PRN (12:38)
[2024-08-25] MEDS ORDERED: hydrALAZINE HCL 20 MG/ML 1 ML VIAL IVP PRN (12:39)
[2024-08-25 12:50] LABS: Glucose,Whole Blood 241 mg/dL (70-110)
--- NOTE | 2024-08-25 13:10 | HP ---
HISTORY AND PHYSICAL CHIEF COMPLAINT: Headache and dizziness. HISTORY OF PRESENT ILLNESS: This is a 54-year-old woman with a past medical history of multiple medical problems including asthma, diabetes mellitus, liver disease, pulmonary embolism, bipolar, depression. She is on disability. The patient apparently had severe chest pain, dizziness, woke up last night. The patient came to [facility]. The patient also noted a bump on the right side of the face. The patient also had a recent COVID about a month ago. The patient also has history of strokes also and is worried. Initial evaluation of the brain CT, which I reviewed personally showed no acute stroke. The patient has shaking tremors at this time. PAST MEDICAL HISTORY: Reviewed include history of stroke, DVT, hypertension, hyperlipidemia, pulmonary embolism, multiple complex medical issues. HOME MEDICATIONS: Reviewed include Desyrel. Dose and rest of medications reviewed, rest of the chart is also reviewed. ALLERGIES: ntd FAMILY HISTORY: History of uterine cancer. SOCIAL HISTORY: History of THC and vaping. REVIEW OF SYSTEMS: A 14-point review is negative except as mentioned earlier. PHYSICAL EXAMINATION: VITAL SIGNS: Pulse 72, blood pressure 157/60, respirations 16. HEENT: Conjunctivae normal. NECK: No JVD. CARDIOVASCULAR: S1, S2. RESPIRATIONS: Breath sounds diminished at the bases. Scattered rhonchi. ABDOMEN: Soft. NERVOUS SYSTEM: No focal deficits. Diffuse tremors and finger-nose incoordination also present. LABORATORY DATA: Reviewed. ASSESSMENT: 1. Headache, dizziness, rule out acute stroke. 2. History of migraines. 3. History of deep venous thrombosis. 4. Hypertension. 5. Hyperlipidemia. 6. Myocardial infarction. 7. History of pulmonary embolism. 8. Diffuse tremors. RECOMMENDATIONS AND DISCUSSION: In this 54-year-old woman who presented with multiple complex medical issues, we will monitor the patient closely. Symptomatic treatment will be ordered. Home medications will be continued. Obtain Neurology consultation. CT scan was noted. The patient might require an MRI. Otherwise, I would also recommend urine drug screen on a stat basis and resume the home medications. Symptomatic treatment also will be provided. Further recommendations to follow. MMODL / IJN: [id number] / MTDD
[2024-08-25] MEDS: ATORVASTATIN 40 MG TAB PO SCH (13:24)
[2024-08-25] MEDS: APIXABAN 5 MG TAB PO SCH (13:24)
[2024-08-25] MEDS: DAPAGLIFLOZIN PROPANEDIOL 10 MG TABLET PO SCH (13:24)
[2024-08-25] MEDS: DILTIAZEM CD 180 MG CAP.ER.24H PO SCH (13:24)
[2024-08-25] MEDS: ISOSORBIDE MONONITRATE ER 60 MG TAB.ER.24H PO SCH (13:25)
[2024-08-25] MEDS: HYDROmorphone 0.5 MG/0.5 ML SYRINGE IVP PRN (13:39)
[2024-08-25] MEDS: LITHIUM CARBONATE 300 MG CAP PO STA (13:59)
[2024-08-25 17:05] LABS: Amphetamine Screen,Urine Not Detected (NotDetected); Barbiturate Screen,Urine Not Detected (NotDetected); Benzodiazepines Screen,Urine Not Detected (NotDetected); Cocaine Screen,Urine Not Detected (NotDetected); Methadone Screen, Urine Not Detected (NotDetected); Opiate Screen,Urine Not Detected (NotDetected); Oxycodone Screen, Urine Not Detected (NotDetected); Phencyclidine Screen,Urine Not Detected (NotDetected); Tricyclic Antidepressant,Urine Not Detected (NotDetected); Urn Cannabinoid Scrn Not Detected (NotDetected)
[2024-08-25 17:16] LABS: Glucose,Whole Blood 226 mg/dL (70-110)
--- NOTE | 2024-08-25 18:27 | P.CNNES ---
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 Patient states that she suffered from COVID about a month ago. On Tuesday, 09-09, she noticed a lump on the forehead. That night, special education aide , she woke up in the middle of night with some chest pain. She sat up, when she felt nauseous and then felt dizzy, vertigo that she has to grab the bed. That morning, she just laid in the bed but she was still dizzy. On Tuesday, yesterday she noticed a lump on the forehead again and then she started having a migraine. She then started having spinning and blurred vision. She called her neurologist Dr. Cordova but could not get hold off. She called her primary physician, who recommended her go to the ER. She was throwing up, spinning blurred vision headache. Patient states that she was concerned about her tumor. Vital signs on arrival blood pressure 152/81 pulse 84 temperature 97.9. Blood tests shows normal CBC, CMP, troponin. Urine drug screen negative. [place] 0.7. EKG showed sinus rhythm. CT head showed no acute intracranial process. Chest x-ray revealed no acute pulmonary process. Patient was seen by myself on 03/09/2023 for acute onset of left arm weakness, left facial droop and slurred speech. Conversion disorder was diagnosed. Patient is on Eliquis 5 mg twice daily. Patient was again evaluated on 12/19/[address] Becker for speech difficulty, left-sided weakness. MRI of the brain was normal. Patient was referred to outpatient neurologist and psychiatrist. Most recent admission on 06/07/2024 for similar symptoms. Functional/conversion disorder was diagnosed. Review of Systems All pertinent positives and negatives mentioned in HPI. Past Medical History Past Medical History: Asthma, Chest Pain / Angina, CVA/TIA, Diabetes Mellitus, Deep Vein Thrombosis (DVT), Fibromyalgia, GERD/Reflux, Hyperlipidemia, Hypertension, Liver Disease, Myocardial Infarction (CT), Pulmonary Embolus (PE) Additional Past Medical History / Comment(s): fibomyalgia, light weakness on left after stroke coming back. mild CT from EKG unknown time. recent blood in stools. non alcoholic fatty liver,, diverticulosis. Last Myocardial Infarction Date:: unk History of Any Multi-Drug Resistant Organisms: C-DIFF Date of last positivie culture/infection: 2019 MDRO Source:: stool Past Surgical History: Appendectomy, Cholecystectomy, Hysterectomy, Orthopedic Surgery, Tonsillectomy Additional Past Surgical History / Comment(s): left knee replaced. left rotator cuff repair . rt hip stretched bursa. colonoscopies, laproscopic surgery to remove abdominal adhesions, left femur sx Past Anesthesia/Blood Transfusion Reactions: Postoperative Nausea & Vomiting (PONV) Additional Past Anesthesia/Blood Transfusion Reaction / Comment(s): with lap procedure had a hard time waking up. Past Psychological History: Bipolar, Depression Smoking Status: Never smoker Past Alcohol Use History: Rare Past Drug Use History: Marijuana Additional Drug Use History / Comment(s): marijuana vape pen. pt aware not to use 24 hrs before procedure. - Past Family History Mother Family Medical History: Cancer Additional Family Medical History / Comment(s): uterine Father Family Medical History: Cancer Additional Family Medical History / Comment(s): lung Medications and Allergies Home Medications Medication Instructions Recorded Confirmed Type Albuterol Sulfate [Albuterol 2 puff INHALATION RT-Q6H PRN 11/15/22 08/25/24 History Sulfate Hfa] Apixaban [Eliquis] 5 mg PO BID 11/15/22 08/25/24 History Atorvastatin Calcium [Lipitor] 40 mg PO DAILY 11/15/22 08/25/24 History Insulin Aspart [NovoLOG Flexpen] See Protocol SQ AC-TID PRN 11/15/22 08/25/24 History Montelukast Sodium [Singulair] 10 mg PO HS 11/15/22 08/25/24 History Ranolazine [Ranexa] 500 mg PO BID 11/28/23 08/25/24 History Isosorbide Mononitrate ER [Imdur] 60 mg PO DAILY 12/19/23 08/25/24 History traZODone HCL [Desyrel] 50 mg PO HS PRN #30 tab 12/20/23 08/25/24 Rx Insulin Degludec [Tresiba 44 units SQ DAILY 03/15/24 08/25/24 History Flextouch U-100 Pen] Fluticasone Propion/Salmeterol 1 puff INHALATION RT-BID PRN 06/06/24 08/25/24 History [Advair 100-50 Diskus] Insulin Aspart [NovoLOG Flexpen] 17 units SQ AC-TID PRN 06/06/24 08/25/24 History Semaglutide [Ozempic] 0.25 mg SQ TH 06/06/24 08/25/24 History Dapagliflozin Propanediol [Farxiga] 10 mg PO DAILY 08/25/24 08/25/24 History [place] Carbonate 300 mg PO BID 08/25/24 08/25/24 History Nystatin 100,000Unit/gm Cream 1 applic TOPICAL BID 08/25/24 08/25/24 History [Mycostatin Cream] clonazePAM [KlonoPIN] 0.5 mg PO BID 08/25/24 08/25/24 History dilTIAZem HCL [Tiazac] 180 mg PO DAILY 08/25/24 08/25/24 History Allergies Allergy/AdvReac Type Severity Reaction Status Date / Time adhesive Allergy red skin Verified 08/25/24 11:17 trimethobenzamide Allergy Rash/Hives Verified 08/25/24 11:17 [From Tigan] vancomycin Allergy Rash/Hives Verified 08/25/24 11:17 Physical Examination - Vital Signs Vital Signs: Vital Signs Temp Pulse Pulse Resp BP BP Pulse Ox 08/25/24 14:26 97.8 F 85 16 132/70 93 L 08/25/24 12:05 97.8 F 88 18 191/82 96 08/25/24 11:41 72 16 157/68 97 08/25/24 07:39 98.2 F 62 16 153/75 94 L 08/25/24 04:00 65 20 116/56 99 08/25/24 02:02 97.9 F 84 18 152/81 99 Intake and Output 08/25/24 08/25/24 08/25/24 06:59 14:59 22:59 Intake Total 591 Balance 591 Intake: Oral 591 Other: # Voids 1 Weight 104.326 kg 104.326 kg Patient is a middle aged female, in no acute distress. Patient is alert awake oriented to time place and person. Speech and language functions are normal. Patient can name and repeat very well. No aphasia or dysarthria. Attention, concentration and fund of knowledge is adequate. On cranial nerve examination, pupils are equal, round and reacting to light, visual alexander are full on confrontation, with no neglect on double simultaneous stimulation. Extraocular muscles are intact with no nystagmus. Face is symmetric, tongue protrudes to the midline. Palatal elevation and sensation normal, hearing and shoulder shrug normal, facial sensation normal. On muscle strength testing, there is no pronator drift and the strength is nor mal in arms and legs distally and proximally. Deep tendon reflexes are (right/left) biceps trace/trace, brachioradialis trace/trace, knee 2/0, ankle 1/1, plantars are flat bilaterally. Sensory to touch is equal with no neglect on double simultaneous stimulation. Cerebellar function showed no ataxia for [id number] testing. No dysdiadochokinesia. No ataxia for [id number] testing on either side. Tone and bulk of muscles normal. Gait deferred.. On general examination, there is no carotid bruit or murmur, S1-S2 audible. Chest is clear on consultation. Abdomen is soft nontender. No organomegaly, bowel sounds present. Peripheral pulses are present. No peripheral edema. Results - Laboratory Findings CBC and BMP: 08/25/24 03:00 08/25/24 03:00 Abnormal Lab Findings: Abnormal Labs 08/25/24 08/25/24 08/25/24 03:00 12:48 17:13 Chloride 109 H Glucose 148 H POC Glucose (mg/dL) 241 H 226 H Assessment and Plan Assessment: * Acute onset of vertigo, nausea vomiting dizziness, likely due to peripheral vestibular dysfunction. Possible labyrinthitis. * Recent history of COVID infection a month ago. This may have triggered above. * Hypertension * Diabetes * Hyperlipidemia * History of DVT and PE, on Eliquis * History of diverticulosis and GI bleed. * History of bipolar disorder * History of possible CVA versus conversion disorder. Plan: * Fioricet as needed for headache. * Meclizine as needed for dizziness. * Informed patient that it will take 2 to 4 days for vertigo to resolve. * Consider Medrol Dosepak if symptoms persist. * Check B12, folate. * Continue Eliquis 5 mg twice daily and Lipitor 40 mg. * Neurologically clear, when her symptoms subside. Patient may follow-up with her neurologist Dr. Cordova outpatient. * Thank you for the consult.
[2024-08-25] MEDS: SYMBICORT 80-4.5 MCG INHALER INHALATION SCH (19:40)
[2024-08-25 19:59] LABS: Glucose,Whole Blood 238 mg/dL (70-110)
[2024-08-25] MEDS: LITHIUM CARBONATE 300 MG CAP PO SCH (20:10)
[2024-08-25] MEDS: clonazePAM 0.5 MG TAB PO SCH (20:10)
[2024-08-25] MEDS: MONTELUKAST 10 MG TAB PO SCH (20:10)
[2024-08-25] MEDS: RANOLAZINE 500 MG TAB.ER.12H PO SCH (20:10)
[2024-08-26 05:58] LABS: Glucose,Whole Blood 200 mg/dL (70-110)
[2024-08-26] MEDS: INSULIN DETEMIR (LEVEMIR) 100 UNIT/ML SYR SQ SCH (06:32)
[2024-08-26 09:19] LABS: Basophils # (A) 0.01 X 10*3/uL (0.00-0.10); Basophils % (A) 0.1 %; Eosinophils # (A) 0 X 10*3/uL (0.04-0.35); Eosinophils % (A) 0 %; HCT 42.3 % (37.2-46.3); Lymphocytes # (A) 1.27 X 10*3/uL (0.90-5.00); Lymphocytes % (A) 15.4 %; MCH 29.5 pg (27.0-32.0); MCHC 33.1 g/dL (32.0-37.0); MCV 89.2 FL (80.0-97.0); Mean Platelet Volume 10.1 FL (9.5-12.2); Monocytes # (A) 0.54 X 10*3/uL (0.20-1.00); Monocytes % (A) 6.5 %; NRBC Per 100 WBC 0 X 10*3/uL (0.00-0.01); Neutrophils # (A) 6.42 X 10*3/uL (1.80-7.70); Neutrophils % (A) 77.6 %; Platelet Count 281 X 10*3/uL (140-440); RBC 4.74 X 10*6/uL (4.10-5.20); WBC 8.27 X 10*3/uL (4.50-10.00)
[2024-08-26] MEDS: BUTALB/APAP/CAFF 50-325-40MG TAB PO PRN (09:58)
[2024-08-26 10:15] LABS: Blood Urea Nitrogen 15.2 mg/dL (9.0-27.0); Calcium 9.1 mg/dL (8.7-10.3); Carbon Dioxide 24.2 mmol/L (21.6-31.8); Chloride 105 mmol/L (96-109); Glucose 199 mg/dL (70-110); Potassium 4.7 mmol/L (3.5-5.5); Sodium 139 mmol/L (135-145)
[2024-08-26 12:44] LABS: Glucose,Whole Blood 173 mg/dL (70-110)
[2024-08-26] MEDS: MECLIZINE 25 MG TAB PO PRN (14:46)
[2024-08-26 17:24] LABS: Glucose,Whole Blood 190 mg/dL (70-110)
[2024-08-26] MEDS: INSULIN ASPART (NovoLOG) 100 UNIT/ML VIAL SQ PRN (17:37)
[2024-08-26 18:42] VITALS: RESP 16
[2024-08-26 19:47] LABS: Glucose,Whole Blood 259 mg/dL (70-110)
--- NOTE | 2024-08-27 04:15 | PN ---
PROGRESS NOTE DATE OF SERVICE: 08/26/2024 SUBJECTIVE: This 54-year-old woman was admitted with intractable headache and dizziness, is being closely monitored. Neurology has seen the patient and recommended medications for possible labyrinthitis. No chest pain or palpitations. PHYSICAL EXAMINATION: VITAL SIGNS: Pulse is 75, blood pressure n, respirations 15. CHEST: Few scattered rhonchi. ABDOMEN: Soft. NERVOUS SYSTEM: Nonfocal. LABORATORY DATA: Reviewed. ASSESSMENT: 1. Severe headache and dizziness for evaluation, possibly tension headache. 2. History of migraines. 3. History of deep vein thrombosis. 4. Hypertension. 5. Recent COVID-19 infection. 6. Hyperlipidemia. 7. History of myocardial infarction. 8. History of pulmonary embolism. 9. Diffuse tremors. 10.Multiple complex medical issues. RECOMMENDATIONS AND DISCUSSION: Continue current management. Continue symptomatic treatment. Otherwise, closely follow with Neurology. Sedimentation rate and CRP. Further recommendations to follow. MMODL / IJN: [id number] / [id number]
[2024-08-27 05:15] LABS: Glucose,Whole Blood 123 mg/dL (70-110)
[2024-08-27 08:10] VITALS: BP 158/77; PULSE 63; TEMP 97.5
[2024-08-27 08:53] LABS: Basophils # (A) 0.03 X 10*3/uL (0.00-0.10); Basophils % (A) 0.5 %; Eosinophils # (A) 0.12 X 10*3/uL (0.04-0.35); Eosinophils % (A) 2.1 %; HCT 43.4 % (37.2-46.3); HGB 14.1 g/dL (12.0-15.0); Lymphocytes % (A) 38.1 %; MCH 29.5 pg (27.0-32.0); MCHC 32.5 g/dL (32.0-37.0); MCV 90.8 FL (80.0-97.0); Mean Platelet Volume 10.2 FL (9.5-12.2); Monocytes # (A) 0.45 X 10*3/uL (0.20-1.00); Monocytes % (A) 7.8 %; NRBC Per 100 WBC 0 X 10*3/uL (0.00-0.01); Neutrophils # (A) 2.96 X 10*3/uL (1.80-7.70); Neutrophils % (A) 51.3 %; Platelet Count 249 X 10*3/uL (140-440); RBC 4.78 X 10*6/uL (4.10-5.20); RDW 12.4 % (11.5-14.5); WBC 5.77 X 10*3/uL (4.50-10.00)
[2024-08-27 08:57] LABS: BUN/Creat Ratio 21.25 Ratio (12.00-20.00); Calcium 8.8 mg/dL (8.7-10.3); Carbon Dioxide 22.1 mmol/L (21.6-31.8); Chloride 109 mmol/L (96-109); Glucose 128 mg/dL (70-110); Potassium 4.2 mmol/L (3.5-5.5); Sodium 142 mmol/L (135-145)
--- NOTE | 2024-08-28 11:04 | P.DS ---
Providers Date of admission: 08/25/24 07:47 Expected date of discharge: 08/27/24 Attending physician: Velvet Henderson Consults: 08/25/24 07:45 Consult Physician Urgent Consulting Provider: Arcelia Estrada Consult Reason/Comments: intractable headache Do you want consulting provider notified?: Yes Primary care physician: Brayden Valdovinos [facility] Course: Final diagnosis Severe headache and dizziness, likely tension headache History of migraines History of DVT Hypertension Recent COVID-19 infection Hyperlipidemia Previous history of myocardial infarction's History of PE Diffuse tremors Obesity with a BMI of 37.1 GI prophylaxis DVT prophylaxis Full code Discharge disposition Patient is being discharged in a stable condition with guarded prognosis to home. Patient will follow-up with Dr. Valdovinos's office ASSISTANT ATTORNEY GENERAL Abby Santiago in the outpatient setting upon discharge. Patient is to continue with current medications and outpatient follow-up with cardiology along with neurology as scheduled. Patient has been instructed to follow-up with her neurologist this week if possible. Total time taken is greater than 35 minutes. Hospital course This is a 54-year-old female who was recently admitted with intractable headache and dizziness with significant history of migraines. Patient follows with neurologist Dr. Cordova in the outpatient setting and is scheduled to receive injections regarding these headaches. Patient also with significant cardiac history recommend to follow-up with cardiology outpatient. Patient showing some improvement and has been instructed to follow-up with her neurologist and/or possibly Dr. Dumont for further evaluation and medical management regarding these headaches. Patient has been cleared and will be going home today. Currently no reports of chest pain, shortness of breath, or palpitations. Patient is afebrile. No reports of nausea or vomiting and patient is tolerating diet. Patient will be discharged home today. Guarded prognosis and high risk for readmission given patient's significant comorbidities. Physical exam: Gen: This is a 54-year-old female who is awake, alert and oriented x 3, well- developed, well-nourished, obese HEENT: Head is atraumatic, normocephalic. Pupils equal, round. Sclerae is anicteric. NECK: Supple. No JVD. No lymphadenopathy. No thyromegaly. LUNGS: Diminished breath sounds bilaterally otherwise clear to auscultation. No wheezes or rhonchi. No intercostal retractions. HEART: Regular rate and rhythm. No murmur. ABDOMEN: Soft. Obese. Bowel sounds are present. No masses. No tenderness. EXTREMITIES: No pedal edema. No calf tenderness. NEUROLOGICAL: Patient is awake, alert and oriented x3. Cranial nerves 2 through 12 are grossly intact. Please refer to medication reconciliation sheet for a list of medications. The impression and plan of care has been dictated by Amber Medellin, Nurse Practitioner as directed. Dr. Santiago MD I have performed a history and examination and MDM of this patient, discussed the same with the dictator, and agree with the dictator's assessment and plan as written ,documented as a scribe. Based on total visit time, I have performed more than 50% of the visit. Patient Condition at Discharge: Stable Plan - Discharge Summary Discharge Rx Participant: No New Discharge Prescriptions: New Meclizine [Antivert] 25 mg PO TID PRN #20 tab PRN Reason: Vertigo Continue Montelukast Sodium [Singulair] 10 mg PO HS Atorvastatin Calcium [Lipitor] 40 mg PO DAILY Albuterol Sulfate [Albuterol Sulfate Hfa] 2 puff INHALATION RT-Q6H PRN PRN Reason: Shortness Of Breath Ranolazine [Ranexa] 500 mg PO BID Isosorbide Mononitrate ER [Imdur] 60 mg PO DAILY traZODone HCL [Desyrel] 50 mg PO HS PRN #30 tab PRN Reason: Insomnia Semaglutide [Ozempic] 0.25 mg SQ TH Fluticasone Propion/Salmeterol [Advair 100-50 Diskus] 1 puff INHALATION RT- BID PRN PRN Reason: Shortness Of Breath clonazePAM [KlonoPIN] 0.5 mg PO BID Dapagliflozin Propanediol [Farxiga] 10 mg PO DAILY dilTIAZem HCL [Tiazac] 180 mg PO DAILY Nystatin 100,000Unit/gm Cream [Mycostatin Cream] 1 applic TOPICAL BID Insulin Aspart [NovoLOG Flexpen] See Protocol SQ AC-TID PRN PRN Reason: Blood Sugar - High Apixaban [Eliquis] 5 mg PO BID Insulin Degludec [Tresiba Flextouch U-100 Pen] 44 units SQ DAILY Insulin Aspart [NovoLOG Flexpen] 17 units SQ AC-TID PRN PRN Reason: Blood Sugar - High [place] Carbonate 300 mg PO BID Discharge Medication List Albuterol Sulfate [Albuterol Sulfate Hfa] 2 puff INHALATION RT-Q6H PRN 11/15/22 [History] Apixaban [Eliquis] 5 mg PO BID 11/15/22 [History] Atorvastatin Calcium [Lipitor] 40 mg PO DAILY 11/15/22 [History] Insulin Aspart [NovoLOG Flexpen] See Protocol SQ AC-TID PRN 11/15/22 [History] Montelukast Sodium [Singulair] 10 mg PO HS 11/15/22 [History] Ranolazine [Ranexa] 500 mg PO BID 11/28/23 [History] Isosorbide Mononitrate ER [Imdur] 60 mg PO DAILY 12/19/23 [History] traZODone HCL [Desyrel] 50 mg PO HS PRN #30 tab 12/20/23 [Rx] Insulin Degludec [Tresiba Flextouch U-100 Pen] 44 units SQ DAILY 03/15/24 [History] Fluticasone Propion/Salmeterol [Advair 100-50 Diskus] 1 puff INHALATION RT-BID PRN 06/06/24 [History] Insulin Aspart [NovoLOG Flexpen] 17 units SQ AC-TID PRN 06/06/24 [History] Semaglutide [Ozempic] 0.25 mg SQ TH 06/06/24 [History] Dapagliflozin Propanediol [Farxiga] 10 mg PO DAILY 08/25/24 [History] [place] Carbonate 300 mg PO BID 08/25/24 [History] Nystatin 100,000Unit/gm Cream [Mycostatin Cream] 1 applic TOPICAL BID 08/25/24 [History] clonazePAM [KlonoPIN] 0.5 mg PO BID 08/25/24 [History] dilTIAZem HCL [Tiazac] 180 mg PO DAILY 08/25/24 [History] Meclizine [Antivert] 25 mg PO TID PRN #20 tab 08/27/24 [Rx] Follow up Appointment(s)/Referral(s): Josh Cordova MD [REFERRING] - 3 Days Abby Santiago NPC [REFERRING] - 1-2 days Tj Dumont MD [Medical Doctor] - 1 Week Activity/Diet/Wound Care/Special Instructions: activity limited until follow up Follow-up with neurologist outpatient and discuss occipital nerve injections Follow-up primary care provider on discharge Continue taking medications as prescribed Discharge Disposition: HOME SELF-CARE
[2024-08-30] MEDS ORDERED: PATIENT'S OWN (Semaglutide [Ozempic] 0.25 MG/0.368 ML Pen.Injctr) SQ SCH (09:00)
== END 2024-08-27 14:33 | disposition home or self-care (01) ==
LOC: EC 02:00 → 6NMEDSUR 07:47
PROVIDERS: ADMIT Hospitalist; ATTEND Hospitalist
DX: R51.9 Headache, unspecified (principal); R42 Dizziness and giddiness; R11.2 Nausea with vomiting, unspecified; R25.1 Tremor, unspecified; J45.909 Unspecified asthma, uncomplicated; E11.9 Type 2 diabetes mellitus without complications; K21.9 Gastro-esophageal reflux disease without esophagitis; E78.5 Hyperlipidemia, unspecified; I10 Essential (primary) hypertension; F31.9 Bipolar disorder, unspecified; I25.2 Old myocardial infarction; E66.9 Obesity, unspecified; Z68.37 Body mass index [BMI] 37.0-37.9, adult; Z86.16 Personal history of COVID-19; Z86.711 Personal history of pulmonary embolism; Z86.718 Personal history of other venous thrombosis and embolism; Z86.73 Personal history of transient ischemic attack (TIA), and cerebral infarction without residual deficits; Z79.01 Long term (current) use of anticoagulants; Z79.4 Long term (current) use of insulin; Z79.51 Long term (current) use of inhaled steroids; Z79.84 Long term (current) use of oral hypoglycemic drugs; Z79.899 Other long term (current) drug therapy; Z88.1 Allergy status to other antibiotic agents
CPT/HCPCS: 96376 ×3; 96365; 96366; 96375; 99285; 36415; 93005; 80053; 80048 ×2; 85652; 82607; 82746; 80178; 83735; 84484; 85025 ×3; 86140; 80306; 71046; 70450; G0378 ×3; J1200; J1100; J2765; J1171 ×4; J3475; J1885

== ENCOUNTER 2024-09-09 16:33 | Observation (INO) | payer MEDICARE ==
--- NOTE | 2024-09-09 17:09 | ED ---
Chest Pain HPI - General Chief Complaint: Chest Pain Stated Complaint: chest pain,L arm pain Time Seen by Provider: 09/09/24 16:45 Source: patient Mode of arrival: ambulatory Limitations: no limitations - History of Present Illness Initial Comments: This is a 54-year-old female presenting with chest pain that started last night. Patient states pain radiates to bilateral shoulder blades and left arm with associated heaviness. Patient rates pain 8 out of 10, described as constant and pressure. Patient endorses associated dizziness, headache and nausea. Endorses history of AMI, angina, diabetes, DVT, PE. Patient endorses use of meclizine for dizziness with minimal relief. Patient denies fever, chills, body aches, dyspnea/shortness of breath, abdominal pain, vomiting, diarrhea. MD Complaint: chest pain Onset/Timin -: days(s) Onset: during rest Pain Location: substernal Pain Radiation: LUE, neck Severity scale (1-10): 8 Quality: other (Pressure) Consistency: constant Other Symptoms: other (Headache, nausea, and dizziness) Treatments Prior to Arrival: none (Meclizine) - Related Data Home Medications Medication Instructions Recorded Confirmed Albuterol Sulfate [Albuterol 2 puff INHALATION RT-Q6H PRN 11/15/22 08/25/24 Sulfate Hfa] Apixaban [Eliquis] 5 mg PO BID 11/15/22 08/25/24 Atorvastatin Calcium [Lipitor] 40 mg PO DAILY 11/15/22 08/25/24 Insulin Aspart [NovoLOG Flexpen] See Protocol SQ AC-TID PRN 11/15/22 08/25/24 Montelukast Sodium [Singulair] 10 mg PO HS 11/15/22 08/25/24 Ranolazine [Ranexa] 500 mg PO BID 11/28/23 08/25/24 Isosorbide Mononitrate ER [Imdur] 60 mg PO DAILY 12/19/23 08/25/24 Insulin Degludec [Tresiba 44 units SQ DAILY 03/15/24 08/25/24 Flextouch U-100 Pen] Fluticasone Propion/Salmeterol 1 puff INHALATION RT-BID PRN 06/06/24 08/25/24 [Advair 100-50 Diskus] Insulin Aspart [NovoLOG Flexpen] 17 units SQ AC-TID PRN 06/06/24 08/25/24 Semaglutide [Ozempic] 0.25 mg SQ TH 06/06/24 08/25/24 Dapagliflozin Propanediol [Farxiga] 10 mg PO DAILY 08/25/24 08/25/24 [place] Carbonate 300 mg PO BID 08/25/24 08/25/24 Nystatin 100,000Unit/gm Cream 1 applic TOPICAL BID 08/25/24 08/25/24 [Mycostatin Cream] clonazePAM [KlonoPIN] 0.5 mg PO BID 08/25/24 08/25/24 dilTIAZem HCL [Tiazac] 180 mg PO DAILY 08/25/24 08/25/24 Previous Rx's Medication Instructions Recorded traZODone HCL [Desyrel] 50 mg PO HS PRN #30 tab 12/20/23 Meclizine [Antivert] 25 mg PO TID PRN #20 tab 08/27/24 Allergies Allergy/AdvReac Type Severity Reaction Status Date / Time adhesive Allergy red skin Verified 09/09/24 16:49 trimethobenzamide Allergy Rash/Hives Verified 09/09/24 16:49 [From [facility]] vancomycin Allergy Rash/Hives Verified 09/09/24 16:49 Review of Systems ROS Statement: Those systems with pertinent positive or pertinent negative responses have been documented in the HPI. ROS Other: All systems not noted in ROS Statement are negative. Past Medical History Past Medical History: Asthma, Chest Pain / Angina, CVA/TIA, Diabetes Mellitus, Deep Vein Thrombosis (DVT), Fibromyalgia, GERD/Reflux, Hyperlipidemia, Hypertension, Liver Disease, Myocardial Infarction (PA), Pulmonary Embolus (PE) Additional Past Medical History / Comment(s): fibomyalgia, light weakness on left after stroke coming back. mild PA from EKG unknown time. recent blood in stools. non alcoholic fatty liver,, diverticulosis. Last Myocardial Infarction Date:: unk History of Any Multi-Drug Resistant Organisms: C-DIFF Date of last positivie culture/infection: 2019 MDRO Source:: stool Past Surgical History: Appendectomy, Cholecystectomy, Hysterectomy, Orthopedic Surgery, Tonsillectomy Additional Past Surgical History / Comment(s): left knee replaced. left rotator cuff repair . rt hip stretched bursa. colonoscopies, laproscopic surgery to remove abdominal adhesions, left femur sx Past Anesthesia/Blood Transfusion Reactions: Postoperative Nausea & Vomiting (PONV) Additional Past Anesthesia/Blood Transfusion Reaction / Comment(s): with lap procedure had a hard time waking up. Past Psychological History: Bipolar, Depression Smoking Status: Never smoker Past Alcohol Use History: Rare Past Drug Use History: Marijuana - Past Family History Mother Family Medical History: Cancer Additional Family Medical History / Comment(s): uterine Father Family Medical History: Cancer Additional Family Medical History / Comment(s): lung General Exam - General Exam Comments Initial Comments: Visual Physical Exam Vital signs reviewed General: Well-appearing, nontoxic, no acute distress. Head: Normocephalic, atraumatic Eyes: PERRLA, EOMI ENT: Airway patent Chest: Nonlabored breathing Skin: No visual rash, normal skin tone Neuro: Alert and oriented 3 Musculoskeletal: No gross abnormalities Limitations: no limitations General appearance: alert, in no apparent distress Head exam: Present: atraumatic, normocephalic, normal inspection Eye exam: Present: normal appearance, PERRL, EOMI. Absent: scleral icterus, conjunctival injection, periorbital swelling ENT exam: Present: normal exam, mucous membranes moist Neck exam: Present: normal inspection. Absent: tenderness, meningismus, lymphadenopathy Respiratory exam: Present: decreased breath sounds (Lung sounds slightly diminished in all alexander). Absent: respiratory distress, wheezes, rales, rhonchi, stridor Cardiovascular Exam: Present: regular rate, normal rhythm, normal heart sounds. Absent: systolic murmur, diastolic murmur, rubs, gallop, clicks GI/Abdominal exam: Present: soft, normal bowel sounds. Absent: distended, tenderness, guarding, rebound, rigid Extremities exam: Present: normal inspection, full ROM, normal capillary refill. Absent: tenderness, pedal edema, joint swelling, calf tenderness Back exam: Present: normal inspection Neurological exam: Present: alert, oriented X3, CN II-XII intact Psychiatric exam: Present: normal affect, normal mood Skin exam: Present: warm, dry, intact, normal color. Absent: rash Course Vital Signs 09/09/24 09/09/24 16:49 19:41 Temperature 98.7 F Pulse Rate 86 78 Respiratory 18 17 Rate Blood Pressure 159/83 120/68 O2 Sat by Pulse 96 93 L Oximetry Chest Pain MDM - MDM I completed the quick note portion of this chart signed BAO Orozco- Josefina Was pt. sent in by a medical professional or institution (BAO Nugetn, RFID SPECIALIST, urgent care, hospital, or fci...) When possible be specific @ -No Did you speak to anyone other than the patient for history (EMS, parent, family, police, friend...)? What history was obtained from this source @ -No Did you review nursing and triage notes (agree or disagree)? Why? @ -I reviewed and agree with nursing and triage notes Were old charts reviewed (outside hosp., previous admission, EMS record, old EKG, old radiological studies, urgent care reports/EKG's, fci records)? Report findings @ -No old charts were reviewed Differential Diagnosis (chest pain, altered mental status, abdominal pain women, abdominal pain men, vaginal bleeding, weakness, fever, dyspnea, syncope, headache, dizziness, GI bleed, back pain, seizure, CVA, palpatations, mental health, musculoskeletal)? @ -Differential Chest Pain: Stable Angina, Unstable Angina, STEMI, NSTEMI Aortic Dissection, Pneumothorax, Musculoskeletal, Esophageal Spasm GERD, Cholecystitis, Pancreatitis, Zoster, this is not meant to be an all-inclusive list. EKG interpreted by me (3pts min.). @ -Sinus rhythm without ST elevation, ST depression or T wave inversion. Ventricular rate 79 bpm, DC interval 137 ms, QRS duration 94 ms, QT/QTc 378/412 ms. X-rays interpreted by me (1pt min.). @ -Chest x-ray shows no focal infiltrates, pulmonary edema, blunting of costophrenic angle. CT interpreted by me (1pt min.). @ -None done U/S interpreted by me (1pt. min.). @ -None done What testing was considered but not performed or refused? (CT, X-rays, U/S, labs)? Why? @ -None What meds were considered but not given or refused? Why? @ -None Did you discuss the management of the patient with other professionals (professionals i.e. BAO Nugent, RFID SPECIALIST, lab, RT, psych nurse, social insurance administrator, warp dyeing vat tender, t eacher, traffic division commanding officer, director of casework services)? Give summary @ -Yes spoke to Dr Cecily Galvan about patient condition and need for observation admission. Dr. Galvan advised heparin infusion prior to admission. Was smoking cessation discussed for >3mins.? @ -No Was critical care preformed (if so, how long)? @ -No Were there social determinants of health that impacted care today? How? (Homelessness, low income, unemployed, alcoholism, drug addiction, transportation, low edu. Level, literacy, decrease access to med. care, retirement, rehab)? @ -No Was there de-escalation of care discussed even if they declined (Discuss DNR or withdrawal of care, Hospice)? DNR status @ -No What co-morbidities impacted this encounter? (DM, HTN, Smoking, COPD, CAD, Cancer, CVA, ARF, Chemo, Hep., AIDS, mental health diagnosis, sleep apnea, morbid obesity)? @ -Diabetes Was patient admitted / discharged? Hospital course, mention meds given and route, prescriptions, significant lab abnormalities, going to OR and other pertinent info. @ -Admitted. Chest x-ray and lab work reveals no remarkable findings with troponin 0.015. Patient given aspirin, morphine and nitroglycerin sublingual for pain management. Attending physician Dr. Dexter advised observation. Spoke to Dr. Cecily Galvan who advised heparin infusion prior to admission to observation; although will hold on heparin infusion at this time due to patient's current use of Eliquis p.o. upon guidance/recommendation of Dr. Dexter. Undiagnosed new problem with uncertain prognosis? @ -No Drug Therapy requiring intensive monitoring for toxicity (Heparin, Nitro, Insulin, Cardizem)? @ -No Were any procedures done? @ -No Diagnosis/symptom? @ -Chest pain, NSTEMI Acute, or Chronic, or Acute on Chronic? @ -Acute Uncomplicated (without systemic symptoms) or Complicated (systemic symptoms)? @ -Complicated Side effects of treatment? @ -No Exacerbation, Progression, or Severe Exacerbation? @ -No Poses a threat to life or bodily function? How? (Chest pain, USA, PA, pneumonia, PE, COPD, DKA, ARF, appy, cholecystitis, CVA, Diverticulitis, Homicidal, Suicidal, threat to staff... and all critical care pts) @ -PA Disposition Clinical Impression: Acute non-ST elevation myocardial infarction (NSTEMI) Disposition: ADMITTED IP TO THIS HOSP Condition: Fair Is patient prescribed a controlled substance at d/c from ED?: No Time of Disposition: 20:10 Decision Date: 09/09/24 Decision Time: 20:10
[2024-09-09] MEDS: ASPIRIN 325 MG TAB PO STA (18:11)
--- NOTE | 2024-09-09 18:25 | XR ---
EXAMINATION TYPE: XR chest 2V DATE OF EXAM: 09/09/2024 6:20 PM CLINICAL INDICATION: Female, 54 years old with history of Chest pain; [facility] COMPARISON: Chest radiographs from 08/25/2024 TECHNIQUE: XR chest 2V Frontal view of the chest. FINDINGS: Lungs/Pleura: There is no evidence of pleural effusion, focal consolidation, or pneumothorax. Pulmonary vascularity: Unremarkable. Heart/mediastinum: Cardiomediastinal silhouette is unremarkable. Musculoskeletal: No acute osseous pathology. IMPRESSION: No acute cardiopulmonary disease/process. [facility] Herbert, , 09/09/2024 6:22 PM
[2024-09-09] MEDS: MORPHINE SULFATE 2 MG/ML SYRINGE IVP ONE ×2 (18:48→19:36)
[2024-09-09 18:51] LABS: Basophils % (A) 1 %; Eosinophils # (A) 0.1 k/uL (0-0.7); Eosinophils % (A) 2 %; HCT 46.3 % (34.0-46.0); Lymphocytes # (A) 1.3 k/uL (1.0-4.8); Lymphocytes % (A) 27 %; MCH 29.8 pg (25.0-35.0); MCHC 32.4 g/dL (31.0-37.0); MCV 91.8 fL (80.0-100.0); Mean Platelet Volume 7.2; Monocytes # (A) 0.3 k/uL (0-1.0); Monocytes % (A) 5 %; Neutrophils # (A) 3.1 k/uL (1.3-7.7); Neutrophils % (A) 64 %; Platelet Count 248 k/uL (150-450); RBC 5.05 m/uL (3.80-5.40); RDW 12.5 % (11.5-15.5); WBC 4.9 k/uL (3.8-10.6)
[2024-09-09 19:00] LABS: Partial Thromboplastin Time 27.1 sec (22.0-30.0); Prothrombin Time 10.6 sec (10.0-12.5)
[2024-09-09 19:09] LABS: ALT 23 U/L (4-34); African American GFR (CKD) >90 (>60 ml/min/1.73 sqM); Albumin 4.2 g/dL (3.5-5.0); Anion Gap 5 mmol/L; Blood Urea Nitrogen 15 mg/dL (7-17); Carbon Dioxide 25 mmol/L (22-30); Chloride 108 mmol/L (98-107); Glucose 110 mg/dL (74-99); Non-African American GFR(CKD) >90 (>60 ml/min/1.73 sqM); Sodium 138 mmol/L (137-145); Total Bilirubin 1.4 mg/dL (0.2-1.3); Total Protein 6.6 g/dL (6.3-8.2)
[2024-09-09 19:21] LABS: AST 41 U/L (14-36); Alkaline Phosphatase 69 U/L (38-126); Potassium 5.8 mmol/L (3.5-5.1)
[2024-09-09] MEDS: NITROGLYCERIN SL TABS 0.4 MG TAB SUBLINGUAL STA (19:37)
[2024-09-09] MEDS ORDERED: ALBUTEROL HFA INHALER INHALATION PRN (20:04)
[2024-09-09] MEDS ORDERED: INSULIN ASPART (NovoLOG) 100 UNIT/ML VIAL SQ PRN (20:04)
[2024-09-09] MEDS ORDERED: traZODone HCL 50 MG TAB PO PRN (20:04)
[2024-09-09] MEDS: LITHIUM CARBONATE 300 MG CAP PO SCH (21:04)
[2024-09-09] MEDS: MONTELUKAST 10 MG TAB PO SCH (21:04)
[2024-09-09] MEDS: RANOLAZINE 500 MG TAB.ER.12H PO SCH (21:04)
[2024-09-09] MEDS: APIXABAN 5 MG TAB PO SCH (21:05)
[2024-09-09] MEDS: INSULIN DETEMIR (LEVEMIR) 100 UNIT/ML SYR SQ SCH (21:05)
[2024-09-09] MEDS: clonazePAM 0.5 MG TAB PO SCH (21:06)
[2024-09-09] MEDS: MECLIZINE 25 MG TAB PO PRN (21:32)
[2024-09-09] MEDS: MORPHINE SULFATE 2 MG/ML SYRINGE IVP STA (21:34)
[2024-09-09 22:54] LABS: Glucose,Whole Blood 104 mg/dL (70-110)
[2024-09-09] MEDS: DEXTROSE 50% SYRINGE 50 ML IVP STA (22:58)
[2024-09-09] MEDS: INSULIN REGULAR 100 UNIT/ML VIAL (IV) IV ONE (22:59)
[2024-09-09] MEDS: SODIUM ZIRCONIUM CYCLOSILICATE 10 GM PACKET PO ONE (23:04)
[2024-09-09 23:59] LABS: Glucose,Whole Blood 115 mg/dL (70-110)
[2024-09-10] MEDS: MORPHINE SULFATE 2 MG/ML SYRINGE IVP PRN (01:27)
[2024-09-10 03:05] VITALS: RESP 16
[2024-09-10] MEDS ORDERED: DEXTROSE 50% SYRINGE 50 ML IVP PRN (07:17)
[2024-09-10 07:23] LABS: Glucose,Whole Blood 63 mg/dL (70-110)
[2024-09-10] MEDS: DEXTROSE 50% SYRINGE 50 ML IVP PRN (07:24)
[2024-09-10 07:50] LABS: Glucose,Whole Blood 97 mg/dL (70-110)
[2024-09-10] MEDS ORDERED: ASPIRIN 325 MG TAB PO SCH (09:00)
[2024-09-10] MEDS: ATORVASTATIN 40 MG TAB PO SCH (09:41)
[2024-09-10] MEDS: DAPAGLIFLOZIN PROPANEDIOL 10 MG TABLET PO SCH (09:41)
[2024-09-10] MEDS: DILTIAZEM CD 180 MG CAP.ER.24H PO SCH (10:15)
[2024-09-10] MEDS: ISOSORBIDE MONONITRATE ER 60 MG TAB.ER.24H PO SCH (10:15)
--- NOTE | 2024-09-10 11:52 | P.CRDCN ---
History of Present Illness Consult date: 09/10/24 History of present illness: - . HPI: 54-year-old lady with a known history of recurrent chest pain came into the hospital complaining of some pain in the left arm and shoulders associated with some heaviness. Troponins are normal recent cardiac cath from November of this year was unremarkable. Pain is very atypical troponins are normal no chest pain at the time of my evaluation. She carries a diagnosis of paroxysmal atrial fibrillation with a questionable TIA. Remote history of DVT as well. At this time she is comfortable resting has no chest pain or shortness of breath. EKG is unremarkable and troponins are normal. RELEVANT PAST MEDICAL HISTORY: Remarkable for a cardiac cath in November that was unremarkable for any obstructive CAD, history of paroxysmal atrial fibrillation, hypertension hyperlipidemia. Patient has insulin requiring diabetes mellitus, bipolar disorder history of DVT in the past details unavailable. MEDICATIONS: Occasions include Ozempic trazodone insulin diltiazem Ranexa lithium for bipolar disorder Imdur 30 mg daily Farxiga Lipitor 40 mg daily Eliquis 5 mg twice daily ALLERGIES: Please see the chart vancomycin is one of the allergies. REVIEW OF SYSTEMS: Optimal for shoulder pain seems arthritic pain atypical in nature no anginal symptoms no palpitations syncope or near syncope or GI symptoms. PHYSICIAL EXAM: Stable there is no JVD. No carotid bruit. No JVD S1-S2 heard normally no significant murmurs lungs are clear abdomen is soft nontender lower extremities reveal normal pulses no edema Central nervous system is normal. IMPRESSION: 1. Atypical chest pain. 2. Hypertension. 3. Diabetes. 4. Paroxysmal A-fib in sinus rhythm. 5.. RECOMMENDATIONS: Continue current medications I will suggest that we can incre ase activity and discharge the patient and follow-up with her PCP.. Past Medical History Past Medical History: Asthma, Chest Pain / Angina, CVA/TIA, Diabetes Mellitus, Deep Vein Thrombosis (DVT), Fibromyalgia, GERD/Reflux, Hyperlipidemia, Hypertension, Liver Disease, Myocardial Infarction (OR), Pulmonary Embolus (PE) Additional Past Medical History / Comment(s): fibomyalgia, light weakness on left after stroke coming back. mild OR from EKG unknown time. recent blood in stools. non alcoholic fatty liver,, diverticulosis. Last Myocardial Infarction Date:: unk History of Any Multi-Drug Resistant Organisms: C-DIFF Date of last positivie culture/infection: 2019 MDRO Source:: stool Past Surgical History: Appendectomy, Cholecystectomy, Hysterectomy, Orthopedic Surgery, Tonsillectomy Additional Past Surgical History / Comment(s): left knee replaced. left rotator cuff repair . rt hip stretched bursa. colonoscopies, laproscopic surgery to remove abdominal adhesions, left femur sx Past Anesthesia/Blood Transfusion Reactions: Postoperative Nausea & Vomiting (PONV) Additional Past Anesthesia/Blood Transfusion Reaction / Comment(s): with lap procedure had a hard time waking up. Past Psychological History: Bipolar, Depression Smoking Status: Never smoker Past Alcohol Use History: Rare Past Drug Use History: Marijuana Additional Drug Use History / Comment(s): marijuana vape pen. pt aware not to use 24 hrs before procedure. - Past Family History Mother Family Medical History: Cancer Additional Family Medical History / Comment(s): uterine Father Family Medical History: Cancer Additional Family Medical History / Comment(s): lung Medications and Allergies Home Medications Medication Instructions Recorded Confirmed Type Albuterol Sulfate [Albuterol 2 puff INHALATION RT-Q6H PRN 11/15/22 09/10/24 History Sulfate Hfa] Apixaban [Eliquis] 5 mg PO BID 11/15/22 09/10/24 History Atorvastatin Calcium [Lipitor] 40 mg PO DAILY 11/15/22 09/10/24 History Insulin Aspart [NovoLOG Flexpen] See Protocol SQ AC-TID PRN 11/15/22 09/10/24 History Montelukast Sodium [Singulair] 10 mg PO HS 11/15/22 09/10/24 History Ranolazine [Ranexa] 500 mg PO BID 11/28/23 09/10/24 History Isosorbide Mononitrate ER [Imdur] 60 mg PO DAILY 12/19/23 09/10/24 History traZODone HCL [Desyrel] 50 mg PO HS PRN #30 tab 12/20/23 09/10/24 Rx Insulin Degludec [Tresiba 44 units SQ DAILY 03/15/24 09/10/24 History Flextouch U-100 Pen] Fluticasone Propion/Salmeterol 1 puff INHALATION RT-BID PRN 06/06/24 09/10/24 History [Advair 100-50 Diskus] Insulin Aspart [NovoLOG Flexpen] 17 units SQ AC-TID PRN 06/06/24 09/10/24 History Semaglutide [Ozempic] 0.25 mg SQ TH 06/06/24 09/10/24 History Dapagliflozin Propanediol [Farxiga] 10 mg PO DAILY 08/25/24 09/10/24 History Sun Carbonate 300 mg PO BID 08/25/24 09/10/24 History Nystatin 100,000Unit/gm Cream 1 applic TOPICAL BID 08/25/24 09/10/24 History [Mycostatin Cream] clonazePAM [KlonoPIN] 0.5 mg PO BID 08/25/24 09/10/24 History dilTIAZem HCL [Tiazac] 180 mg PO DAILY 08/25/24 09/10/24 History Meclizine [Antivert] 25 mg PO TID PRN #20 tab 08/27/24 09/10/24 Rx Allergies Allergy/AdvReac Type Severity Reaction Status Date / Time adhesive Allergy red skin Verified 09/10/24 07:16 trimethobenzamide Allergy Rash/Hives Verified 09/10/24 07:16 [From [facility]] vancomycin Allergy Rash/Hives Verified 09/10/24 07:16 Physical Exam Vitals: Vital Signs Temp Pulse Pulse Resp BP BP Pulse Ox 09/10/24 07:00 97.9 F 70 16 137/82 98 09/10/24 03:04 97.9 F 82 16 174/84 99 09/10/24 02:04 66 18 146/74 95 09/09/24 23:29 80 18 152/68 97 09/09/24 21:30 62 17 146/80 94 L 09/09/24 19:41 78 17 120/68 93 L 09/09/24 16:49 98.7 F 86 18 159/83 96 Intake and Output 09/09/24 09/10/24 09/10/24 22:59 06:59 14:59 Other: # Voids 3 Weight 104.326 kg 104.326 kg Results 09/09/24 18:38 09/10/24 10:20 Cardiac Enzymes 09/09/24 09/09/24 09/09/24 Range/Units 18:38 18:38 21:21 AST 41 H (14-36) U/L Troponin I 0.015 <0.012 (0.000-0.034) ng/mL 09/10/24 Range/Units 01:11 AST (14-36) U/L Troponin I <0.012 (0.000-0.034) ng/mL Coagulation 09/09/24 Range/Units 18:38 PT 10.6 (10.0-12.5) sec APTT 27.1 (22.0-30.0) sec CBC 09/09/24 Range/Units 18:38 WBC 4.9 (3.8-10.6) k/uL RBC 5.05 (3.80-5.40) m/uL Hgb 15.0 (11.4-16.0) gm/dL Hct 46.3 H (34.0-46.0) % Plt Count 248 (150-450) k/uL Comprehensive Metabolic Panel 09/09/24 09/10/24 Range/Units 18:38 10:20 Sodium 138 (137-145) mmol/L Potassium 5.8 H 3.7 (3.5-5.1) mmol/L Chloride 108 H (98-107) mmol/L Carbon Dioxide 25 (22-30) mmol/L BUN 15 (7-17) mg/dL Creatinine 0.70 (0.52-1.04) mg/dL Glucose 110 H (74-99) mg/dL Calcium 9.0 (8.4-10.2) mg/dL AST 41 H (14-36) U/L ALT 23 (4-34) U/L Alkaline Phosphatase 69 (38-126) U/L Total Protein 6.6 (6.3-8.2) g/dL Albumin 4.2 (3.5-5.0) g/dL Current Medications Generic Name Dose Route Start Last Admin Trade Name Freq PRN Reason Stop Dose Admin Albuterol Sulfate 2 puff 09/09/24 20:04 Albuterol Hfa Inhaler INHALATION RT-Q6H PRN Shortness Of Breath Apixaban 5 mg 09/09/24 21:00 09/10/24 09:41 Apixaban 5 Mg Tab PO 5 mg BID FRANCISCO JAVIER Administration Protocol Atorvastatin Calcium 40 mg 09/10/24 09:00 09/10/24 09:41 Atorvastatin 40 Mg Tab PO 40 mg DAILY FRANCISCO JAVIER Administration Clonazepam 0.5 mg 09/09/24 21:00 09/10/24 09:42 Clonazepam 0.5 Mg Tab PO 0.5 mg BID FRANCISCO JAVIER Administration Dapagliflozin 10 mg 09/10/24 09:00 09/10/24 09:41 Dapagliflozin Propanediol 10 Mg Tablet PO 10 mg DAILY FRANCISCO JAVIER Administration Dextrose/Water 25 ml 09/10/24 07:17 09/10/24 07:24 Dextrose 50% Syringe 50 Ml IVP 25 ml PER PROTOCOL PRN Administration Hypoglycemia Protocol Dextrose/Water 50 ml 09/10/24 07:17 Dextrose 50% Syringe 50 Ml IVP PER PROTOCOL PRN Hypoglycemia Protocol Diltiazem HCl 180 mg 09/10/24 09:00 09/10/24 10:15 Diltiazem Cd 180 Mg Cap.Er.24h PO 180 mg DAILY FRANCISCO JVAIER Administration Insulin Aspart 17 unit 09/09/24 20:04 Insulin Aspart (Novolog) 100 Unit/Ml Vial SQ AC-TID PRN Blood Sugar - High Insulin Detemir 44 unit 09/10/24 09:00 09/09/24 21:05 Insulin Detemir (Levemir) 100 Unit/Ml Syr SQ 44 unit DAILY FRANCISCO JAVIER Administration Isosorbide Mononitrate 60 mg 09/10/24 09:00 09/10/24 10:15 Isosorbide Mononitrate Er 60 Mg Tab.Er.24h PO 60 mg DAILY FRANCISCO JAVIER Administration Sun Carbonate 300 mg 09/09/24 21:00 09/10/24 09:41 Sun Carbonate 300 Mg Cap PO 300 mg BID FRANCISCO JAVIER Administration Meclizine HCl 25 mg 09/09/24 20:04 09/09/24 21:32 Meclizine 25 Mg Tab PO 25 mg TID PRN Administration Vertigo Montelukast Sodium 10 mg 09/09/24 21:00 09/09/24 21:04 Montelukast 10 Mg Tab PO 10 mg HS FRANCISCO JAVIER Administration Morphine Sulfate 2 mg 09/09/24 21:26 09/10/24 06:24 Morphine Sulfate 2 Mg/Ml Syringe IVP 2 mg Q4HR PRN Administration Breakthrough Pain Non-Formulary Medication 0.25 mg 09/13/24 20:04 Semaglutide [Ozempic] SQ TH [facility] Ranolazine 500 mg 09/09/24 21:00 09/10/24 09:41 Ranolazine 500 Mg Tab.Er.12h PO 500 mg BID FRANCISCO JAVIER Administration Trazodone HCl 50 mg 09/09/24 20:04 Trazodone Hcl 50 Mg Tab PO HS PRN Insomnia Intake and Output 09/09/24 09/10/24 09/10/24 22:59 06:59 14:59 Other: # Voids 3 Weight 104.326 kg 104.326 kg 09/09/24 18:38 09/10/24 10:20
--- NOTE | 2024-09-10 14:45 | P.HPIM ---
History of Present Illness H&P Date: 09/10/24 Patient is a 54-year-old female with type 2 diabetes, hypertension, hyperlipidemia, liver disease, history of myocardial infarction, history of CVA/TIA, history of DVT presenting with chest pain that started 1 day ago. Patient states pain radiates to bilateral shoulder blades and left arm and describes as a heavy pressure type pain. She rates her pain 8 out of 10. EKG independently interpreted shows sinus rhythm, rate 79 bpm, QTc 412 ms CXR chest independently interpreted shows no acute cardiopulmonary disease/process Troponin <0.012 x 2, potassium 5.8 T97.9 F, GA 78, RR 16, BP 137/82, O2 sat 98% on room air ED documentation reviewed. Review of systems: Pertinent positives and negatives as discussed in HPI, a complete review of systems was performed and all other systems are negative. Physical examination: Vital signs reviewed General: non toxic, no distress, appears at stated age, normal weight Derm: no unusual rashes/lesions, warm Head: atraumatic, normocephalic, symmetric Eyes: EOMI, anicteric sclera, pupils equal round reactive to light ENT: Nose and ears atraumatic Neck: No cervical lymphadenopathy, trachea midline, supple Mouth: no lip lesion, mucus membranes moist Cardiovascular: S1S2 reg, no murmur, positive dorsalis pedis pulse bilateral, no edema Lungs: CTA bilateral, no rhonchi, no rales, no accessory muscle use Abdominal: soft, nontender to palpation, no guarding Ext: muscle strength 5 out of 5 in all 4 extremities grossly, no gross muscle atrophy Neuro: CN II-XI grossly intact, no gross focal neuro deficits Psych: Alert, oriented to person, place, and time Assessment/Plan: Patient is a 54-year-old female with type 2 diabetes, hypertension, hyperlipidemia, liver disease, history of myocardial infarction, history of CVA/TIA, history of DVT presenting with chest pain. #. Chest pain Troponin < 0.012 x 2, continue to trend EKG independently interpreted shows sinus rhythm, rate 79 bpm, QTc 412 ms CXR chest independently interpreted shows no acute cardiopulmonary d isease/process Was given aspirin 325 mg p.o. by ED Lipitor 40 mg p.o. daily Nitrostat 0.4 mg sublingual once Cardiac monitoring Cardiology consulted #. Hyperkalemia K 5.8 Was given Lokelma 10 mg p.o. by ED Follow-up BMP #. Elevated AST #. Elevated total bilirubin Likely due to history of liver disease Continue to monitor #. Type 2 diabetes #. History of DVT Continue with Eliquis 5 mg p.o. twice daily Continue with home medications for chronic conditions. F: N/A E: Replete electrolytes as needed N: Heart healthy diet A: Ambulatory DVT prophylaxis: Eliquis 5 mg PO BID The patient is admitted with an anticipated less than 2 midnight stay for evaluation of chest pain. CODE STATUS: Full code Discussed with: Patient Anticipated discharge place: Home Past Medical History Past Medical History: Asthma, Chest Pain / Angina, CVA/TIA, Diabetes Mellitus, Deep Vein Thrombosis (DVT), Fibromyalgia, GERD/Reflux, Hyperlipidemia, Hypertension, Liver Disease, Myocardial Infarction ([place]), Pulmonary Embolus ([place]) Additional Past Medical History / Comment(s): fibomyalgia, light weakness on left after stroke coming back. mild [place] from EKG unknown time. recent blood in stools. non alcoholic fatty liver,, diverticulosis. Last Myocardial Infarction Date:: unk History of Any Multi-Drug Resistant Organisms: C-DIFF Date of last positivie culture/infection: 2019 MDRO Source:: stool Past Surgical History: Appendectomy, Cholecystectomy, Hysterectomy, Orthopedic Surgery, Tonsillectomy Additional Past Surgical History / Comment(s): left knee replaced. left rotator cuff repair . rt hip stretched bursa. colonoscopies, laproscopic surgery to remove abdominal adhesions, left femur sx Past Anesthesia/Blood Transfusion Reactions: Postoperative Nausea & Vomiting (PONV) Additional Past Anesthesia/Blood Transfusion Reaction / Comment(s): with lap procedure had a hard time waking up. Past Psychological History: Bipolar, Depression Smoking Status: Never smoker Past Alcohol Use History: Rare Past Drug Use History: Marijuana Additional Drug Use History / Comment(s): marijuana vape pen. pt aware not to use 24 hrs before procedure. - Past Family History Mother Family Medical History: Cancer Additional Family Medical History / Comment(s): uterine Father Family Medical History: Cancer Additional Family Medical History / Comment(s): lung Medications and Allergies Home Medications Medication Instructions Recorded Confirmed Type Albuterol Sulfate [Albuterol 2 puff INHALATION RT-Q6H PRN 11/15/22 09/10/24 History Sulfate Hfa] Apixaban [Eliquis] 5 mg PO BID 11/15/22 09/10/24 History Atorvastatin Calcium [Lipitor] 40 mg PO DAILY 11/15/22 09/10/24 History Insulin Aspart [NovoLOG Flexpen] See Protocol SQ AC-TID PRN 11/15/22 09/10/24 History Montelukast Sodium [Singulair] 10 mg PO HS 11/15/22 09/10/24 History Ranolazine [Ranexa] 500 mg PO BID 11/28/23 09/10/24 History Isosorbide Mononitrate ER [Imdur] 60 mg PO DAILY 12/19/23 09/10/24 History traZODone HCL [Desyrel] 50 mg PO HS PRN #30 tab 12/20/23 09/10/24 Rx Insulin Degludec [Tresiba 44 units SQ DAILY 03/15/24 09/10/24 History Flextouch U-100 Pen] Fluticasone Propion/Salmeterol 1 puff INHALATION RT-BID PRN 06/06/24 09/10/24 History [Advair 100-50 Diskus] Insulin Aspart [NovoLOG Flexpen] 17 units SQ AC-TID PRN 06/06/24 09/10/24 History Semaglutide [Ozempic] 0.25 mg SQ TH 06/06/24 09/10/24 History Dapagliflozin Propanediol [Farxiga] 10 mg PO DAILY 08/25/24 09/10/24 History [place] Carbonate 300 mg PO BID 08/25/24 09/10/24 History Nystatin 100,000Unit/gm Cream 1 applic TOPICAL BID 08/25/24 09/10/24 History [Mycostatin Cream] clonazePAM [KlonoPIN] 0.5 mg PO BID 08/25/24 09/10/24 History dilTIAZem HCL [Tiazac] 180 mg PO DAILY 08/25/24 09/10/24 History Meclizine [Antivert] 25 mg PO TID PRN #20 tab 08/27/24 09/10/24 Rx Allergies Allergy/AdvReac Type Severity Reaction Status Date / Time adhesive Allergy red skin Verified 09/10/24 07:16 trimethobenzamide Allergy Rash/Hives Verified 09/10/24 07:16 [From Tigkarena] vancomycin Allergy Rash/Hives Verified 09/10/24 07:16 Physical Exam Vitals: Vital Signs Temp Pulse Pulse Resp BP BP Pulse Ox 09/10/24 07:00 97.9 F 70 16 137/82 98 09/10/24 03:04 97.9 F 82 16 174/84 99 09/10/24 02:04 66 18 146/74 95 09/09/24 23:29 80 18 152/68 97 09/09/24 21:30 62 17 146/80 94 L 09/09/24 19:41 78 17 120/68 93 L 09/09/24 16:49 98.7 F 86 18 159/83 96 Intake and Output 09/09/24 09/10/24 09/10/24 22:59 06:59 14:59 Other: # Voids 3 Weight 104.326 kg 104.326 kg Results CBC & Chem 7: 09/09/24 18:38 09/10/24 10:20 Labs: Abnormal Lab Results - Last 24 Hours (Table) 09/09/24 09/09/24 09/09/24 Range/Units 18:38 18:38 23:57 Hct 46.3 H (34.0-46.0) % Potassium 5.8 H (3.5-5.1) mmol/L Chloride 108 H (98-107) mmol/L Glucose 110 H (74-99) mg/dL POC Glucose (mg/dL) 115 H (70-110) mg/dL Total Bilirubin 1.4 H (0.2-1.3) mg/dL AST 41 H (14-36) U/L 09/10/24 Range/Units 07:22 Hct (34.0-46.0) % Potassium (3.5-5.1) mmol/L Chloride (98-107) mmol/L Glucose (74-99) mg/dL POC Glucose (mg/dL) 63 L (70-110) mg/dL Total Bilirubin (0.2-1.3) mg/dL AST (14-36) U/L
--- NOTE | 2024-09-10 14:51 | P.DS ---
Providers Date of admission: 09/09/24 19:28 Discharge Diagnosis: Atypical chest pain Hypertension Type 2 diabetes Paroxysmal A-fib in sinus rhythm Hyperkalemia History of DVT on [facility] Course: Patient is a 54-year-old female with type 2 diabetes, hypertension, hyperlipidemia, liver disease, history of myocardial infarction, history of CVA/TIA, history of DVT presenting with chest pain that started 1 day ago. Patient states pain radiates to bilateral shoulder blades and left arm and describes as a heavy pressure type pain. She rates her pain 8 out of 10. EKG independently interpreted shows sinus rhythm, rate 79 bpm, QTc 412 ms CXR chest independently interpreted shows no acute cardiopulmonary dise ase/process Troponin <0.012 x 2, potassium 5.8 T97.9 F, NE 78, RR 16, BP 137/82, O2 sat 98% on room air Patient is admitted for further evaluation for chest pain. 09/10/2024: While admitted patient was seen by director of operations for therapy. Patient was given Lokelma by ED due to elevated potassium of 5.7. Potassium today 3.7. She was seen by cardiology and cleared from a cardiology standpoint. She is to follow- up with PCP. She she is being discharged home. Review of systems: Pertinent positives and negatives as discussed in HPI, a complete review of systems was performed and all other systems are negative. Physical examination: Vital signs reviewed General: non toxic, no distress, appears at stated age, normal weight Derm: no unusual rashes/lesions, warm Head: atraumatic, normocephalic, symmetric Eyes: EOMI, anicteric sclera, pupils equal round reactive to light ENT: Nose and ears atraumatic Neck: No cervical lymphadenopathy, trachea midline, supple Mouth: no lip lesion, mucus membranes moist Cardiovascular: S1S2 reg, no murmur, positive dorsalis pedis pulse bilateral, no edema Lungs: CTA bilateral, no rhonchi, no rales, no accessory muscle use Abdominal: soft, nontender to palpation, no guarding Ext: muscle strength 5 out of 5 in all 4 extremities grossly, no gross muscle atrophy Neuro: CN II-XI grossly intact, no gross focal neuro deficits Psych: Alert, oriented to person, place, and time A total of greater than 30 minutes of time were spent preparing this complex discharge summary. Patient was discharge on September 10, 2024 at 2:38 PM. Expected date of discharge: 09/10/24 Attending physician: Velvet Henderson Consults: 09/09/24 20:20 Consult Physician Routine Consulting Provider: Nick Oglesby Consult Reason/Comments: Chest pain Do you want consulting provider notified?: Yes, Notify in am Primary care physician: Brayden Valdovinos Patient Condition at Discharge: Fair Plan - Discharge Summary Discharge Rx Participant: No New Discharge Prescriptions: Continue Montelukast Sodium [Singulair] 10 mg PO HS Atorvastatin Calcium [Lipitor] 40 mg PO DAILY Albuterol Sulfate [Albuterol Sulfate Hfa] 2 puff INHALATION RT-Q6H PRN PRN Reason: Shortness Of Breath Ranolazine [Ranexa] 500 mg PO BID Isosorbide Mononitrate ER [Imdur] 60 mg PO DAILY traZODone HCL [Desyrel] 50 mg PO HS PRN #30 tab PRN Reason: Insomnia Semaglutide [Ozempic] 0.25 mg SQ TH Fluticasone Propion/Salmeterol [Advair 100-50 Diskus] 1 puff INHALATION RT- BID PRN PRN Reason: Shortness Of Breath clonazePAM [KlonoPIN] 0.5 mg PO BID Dapagliflozin Propanediol [Farxiga] 10 mg PO DAILY dilTIAZem HCL [Tiazac] 180 mg PO DAILY Nystatin 100,000Unit/gm Cream [Mycostatin Cream] 1 applic TOPICAL BID Insulin Aspart [NovoLOG Flexpen] See Protocol SQ AC-TID PRN PRN Reason: Blood Sugar - High Apixaban [Eliquis] 5 mg PO BID Insulin Degludec [Tresiba Flextouch U-100 Pen] 44 units SQ DAILY Insulin Aspart [NovoLOG Flexpen] 17 units SQ AC-TID PRN PRN Reason: Blood Sugar - High [place] Carbonate 300 mg PO BID Meclizine [Antivert] 25 mg PO TID PRN #20 tab PRN Reason: Vertigo Discharge Medication List Albuterol Sulfate [Albuterol Sulfate Hfa] 2 puff INHALATION RT-Q6H PRN 11/15/22 [History] Apixaban [Eliquis] 5 mg PO BID 11/15/22 [History] Atorvastatin Calcium [Lipitor] 40 mg PO DAILY 11/15/22 [History] Insulin Aspart [NovoLOG Flexpen] See Protocol SQ AC-TID PRN 11/15/22 [History] Montelukast Sodium [Singulair] 10 mg PO HS 11/15/22 [History] Ranolazine [Ranexa] 500 mg PO BID 11/28/23 [History] Isosorbide Mononitrate ER [Imdur] 60 mg PO DAILY 12/19/23 [History] traZODone HCL [Desyrel] 50 mg PO HS PRN #30 tab 12/20/23 [Rx] Insulin Degludec [Tresiba Flextouch U-100 Pen] 44 units SQ DAILY 03/15/24 [History] Fluticasone Propion/Salmeterol [Advair 100-50 Diskus] 1 puff INHALATION RT-BID PRN 06/06/24 [History] Insulin Aspart [NovoLOG Flexpen] 17 units SQ AC-TID PRN 06/06/24 [History] Semaglutide [Ozempic] 0.25 mg SQ TH 06/06/24 [History] Dapagliflozin Propanediol [Farxiga] 10 mg PO DAILY 08/25/24 [History] [place] Carbonate 300 mg PO BID 08/25/24 [History] Nystatin 100,000Unit/gm Cream [Mycostatin Cream] 1 applic TOPICAL BID 08/25/24 [History] clonazePAM [KlonoPIN] 0.5 mg PO BID 08/25/24 [History] dilTIAZem HCL [Tiazac] 180 mg PO DAILY 08/25/24 [History] Meclizine [Antivert] 25 mg PO TID PRN #20 tab 08/27/24 [Rx] Follow up Appointment(s)/Referral(s): Brayden Valdovinos DO [Primary Care Provider] - 1-2 days Patient Instructions/Handouts: Chest Pain (ED) Discharge Disposition: HOME SELF-CARE
[2024-09-10 15:50] VITALS: BP 112/72; PULSE 81; TEMP 98.2
[2024-09-13] MEDS ORDERED: NON FORMULARY DRUG (Semaglutide [Ozempic] 0.25 MG/0.368 ML Pen.Injctr) SQ SCH (20:04)
== END 2024-09-10 16:00 | disposition home or self-care (01) ==
LOC: EC 16:33 → 6NMEDSUR 19:28
PROVIDERS: ADMIT Hospitalist; ATTEND Hospitalist
DX: I21.3 ST elevation (STEMI) myocardial infarction of unspecified site (principal); E11.9 Type 2 diabetes mellitus without complications; I48.0 Paroxysmal atrial fibrillation; I10 Essential (primary) hypertension; E87.5 Hyperkalemia; F31.9 Bipolar disorder, unspecified; R51.9 Headache, unspecified; E78.5 Hyperlipidemia, unspecified; K76.0 Fatty (change of) liver, not elsewhere classified; I25.2 Old myocardial infarction; M79.7 Fibromyalgia; K21.9 Gastro-esophageal reflux disease without esophagitis; Z79.4 Long term (current) use of insulin; Z79.01 Long term (current) use of anticoagulants; Z79.84 Long term (current) use of oral hypoglycemic drugs; Z79.899 Other long term (current) drug therapy; Z86.718 Personal history of other venous thrombosis and embolism; Z86.711 Personal history of pulmonary embolism; Z86.19 Personal history of other infectious and parasitic diseases; Z86.73 Personal history of transient ischemic attack (TIA), and cerebral infarction without residual deficits; Z88.1 Allergy status to other antibiotic agents; Z88.8 Allergy status to other drugs, medicaments and biological substances; Z91.048 Other nonmedicinal substance allergy status
CPT/HCPCS: 96376 ×3; 96374; 96375; 99285; 36415; 93005; 80053; 83605; 84132; 84484 ×2; 85025; 85610; 85730; 71046; G0378 ×2; J2270 ×2

== ENCOUNTER 2024-10-17 03:52 | Emergency (ER) | payer MEDICARE ==
[2024-10-17 04:00] VITALS: RESP 18; TEMP 98.7
--- NOTE | 2024-10-17 04:20 | ED ---
General Adult HPI - General Chief complaint: ENT Stated complaint: Difficulty swallowing Time Seen by Provider: 10/17/24 03:57 Source: patient, EMS Mode of arrival: EMS - History of Present Illness Initial comments: Patient is a 54-year-old male past medical history of prior DVT, hypertension, GERD, reflux, prior NE presenting today for difficulty swallowing. Patient states at noon yesterday she noticed what felt like a hard mass in the bottom of her throat. She states she has not been able to swallow liquids or solids around this since it started. The last thing she ate was the night previously she had a bologna and cheese sandwich. She denies consuming anything with bones, any sharp chips or sharp objects. She does not take the potassium supplements however does take lithium. She does not feel that this sensation started immediately after taking her medications and can't recall any inciting events that seemed to cause her symptoms. She has been able to take her medications since this sensation started. She denies any shortness or difficulty in breathing, denies nausea or vomiting, denies fevers or chills, denies chest pain. She feels like if she pushes the front of her throat at the base of her throat it feels sore and painful. She has not had any recent dental procedures or infections. Patient denies sore throat or nasal congestion. - Related Data Home Medications Medication Instructions Recorded Confirmed RX: Albuterol Sulfate [Albuterol 2 puff INHALATION RT-Q6H PRN 11/15/22 09/10/24 Sulfate Hfa] RX: Apixaban [Eliquis] 5 mg PO BID 11/15/22 09/10/24 RX: Atorvastatin Calcium [Lipitor] 40 mg PO DAILY 11/15/22 09/10/24 RX: Insulin Aspart [NovoLOG See Protocol SQ AC-TID PRN 11/15/22 09/10/24 Flexpen] RX: Montelukast Sodium [Singulair] 10 mg PO HS 11/15/22 09/10/24 RX: Ranolazine [Ranexa] 500 mg PO BID 11/28/23 09/10/24 RX: Isosorbide Mononitrate ER 60 mg PO DAILY 12/19/23 09/10/24 [Imdur] RX: Insulin Degludec [Tresiba 44 units SQ DAILY 03/15/24 09/10/24 Flextouch U-100 Pen] RX: Fluticasone Propion/Salmeterol 1 puff INHALATION RT-BID PRN 06/06/24 09/10/24 [Advair 100-50 Diskus] RX: Insulin Aspart [NovoLOG 17 units SQ AC-TID PRN 06/06/24 09/10/24 Flexpen] RX: Semaglutide [Ozempic] 0.25 mg SQ TH 06/06/24 09/10/24 RX: Dapagliflozin Propanediol 10 mg PO DAILY 08/25/24 09/10/24 [Farxiga] RX: [place] Carbonate 300 mg PO BID 08/25/24 09/10/24 RX: Nystatin 100,000Unit/gm Cream 1 applic TOPICAL BID 08/25/24 09/10/24 [Mycostatin Cream] RX: clonazePAM [KlonoPIN] 0.5 mg PO BID 08/25/24 09/10/24 RX: dilTIAZem HCL [Tiazac] 180 mg PO DAILY 08/25/24 09/10/24 Previous Rx's Medication Instructions Recorded RX: traZODone HCL [Desyrel] 50 mg PO HS PRN #30 tab 12/20/23 RX: Meclizine [Antivert] 25 mg PO TID PRN #20 tab 08/27/24 Allergies Allergy/AdvReac Type Severity Reaction Status Date / Time adhesive Allergy red skin Verified 10/17/24 04:00 trimethobenzamide Allergy Rash/Hives Verified 10/17/24 04:00 [From [facility]] vancomycin Allergy Rash/Hives Verified 10/17/24 04:00 Review of Systems ROS Statement: Those systems with pertinent positive or pertinent negative responses have been documented in the HPI. ROS Other: All systems not noted in ROS Statement are negative. Past Medical History Past Medical History: Asthma, Chest Pain / Angina, CVA/TIA, Diabetes Mellitus, Deep Vein Thrombosis (DVT), Fibromyalgia, GERD/Reflux, Hyperlipidemia, Hypert ension, Liver Disease, Myocardial Infarction (NE), Pulmonary Embolus (PE) Additional Past Medical History / Comment(s): fibomyalgia, light weakness on left after stroke coming back. mild NE from EKG unknown time. recent blood in stools. non alcoholic fatty liver,, diverticulosis. Last Myocardial Infarction Date:: unk History of Any Multi-Drug Resistant Organisms: C-DIFF Date of last positivie culture/infection: 2019 MDRO Source:: stool Past Surgical History: Appendectomy, Cholecystectomy, Hysterectomy, Orthopedic Surgery, Tonsillectomy Additional Past Surgical History / Comment(s): left knee replaced. left rotator cuff repair . rt hip stretched bursa. colonoscopies, laproscopic surgery to remove abdominal adhesions, left femur sx Past Anesthesia/Blood Transfusion Reactions: Postoperative Nausea & Vomiting (PONV) Additional Past Anesthesia/Blood Transfusion Reaction / Comment(s): with lap procedure had a hard time waking up. Past Psychological History: Bipolar, Depression Smoking Status: Never smoker Past Alcohol Use History: Rare Past Drug Use History: Marijuana - Past Family History Mother Family Medical History: Cancer Additional Family Medical History / Comment(s): uterine Father Family Medical History: Cancer Additional Family Medical History / Comment(s): lung General Exam - General Exam Comments Initial Comments: PE: CONSTITUTIONAL: No apparent distress, well appearing SKIN: Warm, dry, no jaundice, hives or petechiae EYES: Pupils are equally round, extraocular movements intact without nystagmus, clear conjunctiva, non-icteric sclera HENT: Normocephalic, atraumatic, moist mucus membranes, oropharynx clear without exudates, no uvular edema, no oropharyngeal edema, no no tonsillar exudates erythema or masses NECK: , Full range of motion, normal appearance, no thyromegaly, no carotid bruits, no palpable lymphadenopathy, no palpable masses, no submandibular masses, edema or fluctance, no neck stiffness, no erythema, TTP at the base of the throat PULMONARY: Clear to auscultation without wheezes, rhonchi, or rales, normal excursion, no accessory muscle use and no stridor CARDIOVASCULAR: Regular rate, rhythm, normal S1 and S2. No appreciated murmurs, rubs or gallops. Strong radial pulses with intact distal perfusion. No lower extremity edema GASTROINTESTINAL: Soft, active bowel sounds throughout, non-tender, non- distended, no palpable masses, no rebound or guarding. No hepatosplenomegaly MUSCULOSKELETAL: Extremities have no gross deformity, no edema, redness, or swelling. No calf swelling NEUROLOGIC:_a/o x 3, GCS 15, normal mentation and speech. Moves all extremities x 4 without motor or sensory deficit PSYCHIATRIC:_normal mood and affect, thought process is clear and linear Course Vital Signs 10/17/24 10/17/24 03:56 06:26 Temperature 98.7 F Pulse Rate 82 74 Respiratory 18 18 Rate Blood Pressure 157/96 106/73 O2 Sat by Pulse 95 98 Oximetry Medical Decision Making - Medical Decision Making Was pt. sent in by a medical professional or institution (, PA, UPHOLSTERY RESTORER, urgent care, hospital, or jail...) When possible be specific @ -No Did you speak to anyone other than the patient for history (EMS, parent, family, police, friend...)? What history was obtained from this source @ -No Did you review nursing and triage notes (agree or disagree)? Why? @ -I reviewed and agree with nursing and triage notes Were old charts reviewed (outside hosp., previous admission, EMS record, old EKG, old radiological studies, urgent care reports/EKG's, jail records)? Report findings @ -Medical records reviewed Differential Diagnosis (chest pain, altered mental status, abdominal pain women, abdominal pain men, vaginal bleeding, weakness, fever, dyspnea, syncope, headache, dizziness, GI bleed, back pain, seizure, CVA, palpatations, mental health, musculoskeletal)? @ -Differential diagnosis remains broad over top considerations include pill esophagitis, impacted/ esophageal foreign body, GERD, thyrotoxicosis/thyroiditis, abscess, this is not all inclusive list EKG interpreted by me (3pts min.). @ -As above X-rays interpreted by me (1pt min.). @ -None done CT interpreted by me (1pt min.). @There does appear to be some narrowing of the trachea near the hyoid bone otherwise no FB, no subQ air, no visualized foreign body or masses, no abscess U/S interpreted by me (1pt. min.). @ -None done What testing was considered but not performed or refused? (CT, X-rays, U/S, labs)? Why? @ -None What meds were considered but not given or refused? Why? @ -None Did you discuss the management of the patient with other professionals (professionals i.e. , PA, UPHOLSTERY RESTORER, lab, RT, psych nurse, social work administrator, manager combination, teacher, industrial relations officer, skilled nursing case manager)? Give summary @ -No Was smoking cessation discussed for >3mins.? @ -No Was critical care preformed (if so, how long)? @ -No Were there social determinants of health that impacted care today? How? (Homelessness, low income, unemployed, alcoholism, drug addiction, transportation, low edu. Level, literacy, decrease access to med. care, group home, rehab)? @ -No Was there de-escalation of care discussed even if they declined (Discuss DNR or withdrawal of care, Hospice)? @ -No What co-morbidities impacted this encounter? (DM, HTN, Smoking, COPD, CAD, Cancer, CVA, ARF, Chemo, Hep., AIDS, mental health diagnosis, sleep apnea, morbid obesity)? @ -None Was patient admitted / discharged? Hospital course, mention meds given and route, prescriptions, significant lab abnormalities, going to OR and other pertinent info. @Transferred [facility]- Patient is a pleasant 54-year-old female history GERD, fibromyalgia, hypertension, prior NE, does take lithium, presenting for foreign body sensation at the base of her throat and difficulty swallowing. On my assessment patient is well-appearing and in no acute distress, tolerating secretions, respirations unlabored, skin [place] and well-perfused, does have some minimal tenderness palpation at the base of the throat, no masses, fluctuance or thyromegaly palpated. No lymphadenopathy. No abscesses. Oropharyngeal exam shows no obvious foreign body, no tonsillar exudates erythema or swelling, no uvular swelling or deviation, poor dentition though no abscesses are notable. Lungs clear to auscultation bilaterally with equal air entry bilaterally, no stridor. No wheezing. Abdomen soft and nontender. Discussed with patient plan of care for glucagon, Zofran, GI cocktail, CT soft tissue neck to assess for masses, foreign body or abscess formation, given patient stated family history of cancer s, though no history of esophageal cancer. Patient agreeable with POC. Will obtain basic labs as well. Labs and imaging reviewed. Grossly within normal limits. Abnormal values not concerning for acute pathology related to presenting complaint.. CT soft tissue neck read by radiologist as no acute process. On reassessment patient does feel her voice is more hoarse does not feel any improvement in symptoms. She denies any difficulty in breathing and is still tolerating her secretions. I offered her a drink of water she was able to swallow this slowly with some discomfort. Due to persistent concern for upper esophageal FB, plan for transfer to [facility]. Patient agreeable with POC. Discussed case with Dr. Lawson, [facility], kindly accepts patient for transfer. Patient transferred in stable condition. Undiagnosed new problem with uncertain prognosis? @ -No Drug Therapy requiring intensive monitoring for toxicity (Heparin, Nitro, Insulin, Cardizem)? @ -No Were any procedures done? @ -No Diagnosis/symptom? @Esophageal Foreign Body Acute, or Chronic, or Acute on Chronic? @acute Uncomplicated (without systemic symptoms) or Complicated (systemic symptoms)? @ -uncomplicated Side effects of treatment? @ -No Exacerbation, Progression, or Severe Exacerbation? @ -No Poses a threat to life or bodily function? How? (Chest pain, USA, NE, pneumonia, PE, COPD, DKA, ARF, appy, cholecystitis, CVA, Diverticulitis, Homicidal, Suicidal, threat to staff... and all critical care pts) @ -Potentially, if there is a FB present and remains in place, could lead to obstruction of esophagus, prevent patient from eating, drinking and taking medications. - Lab Data Result diagrams: 10/17/24 04:05 10/17/24 04:05 Lab Results 10/17/24 10/17/24 Range/Units 04:05 04:05 WBC 6.1 (3.8-10.6) k/uL RBC 4.72 (3.80-5.40) m/uL Hgb 14.0 (11.4-16.0) gm/dL Hct 41.7 (34.0-46.0) % MCV 88.3 (80.0-100.0) fL MCH 29.6 (25.0-35.0) pg MCHC 33.5 (31.0-37.0) g/dL RDW 12.5 (11.5-15.5) % Plt Count 244 (150-450) k/uL MPV 7.7 Neutrophils % 62 % Lymphocytes % 30 % Monocytes % 5 % Eosinophils % 2 % Basophils % 0 % Neutrophils # 3.7 (1.3-7.7) k/uL Lymphocytes # 1.8 (1.0-4.8) k/uL Monocytes # 0.3 (0-1.0) k/uL Eosinophils # 0.1 (0-0.7) k/uL Basophils # 0.0 (0-0.2) k/uL Sodium 139 (137-145) mmol/L Potassium 3.8 (3.5-5.1) mmol/L Chloride 108 H (98-107) mmol/L Carbon Dioxide 25 (22-30) mmol/L Anion Gap 6 mmol/L BUN 15 (7-17) mg/dL Creatinine 0.80 (0.52-1.04) mg/dL Est GFR (CKD-EPI)AfAm >90 (>60 ml/min/1.73 sqM) Est GFR (CKD-EPI)NonAf 84 (>60 ml/min/1.73 sqM) Glucose 201 H (74-99) mg/dL Calcium 9.3 (8.4-10.2) mg/dL Total Bilirubin 0.5 (0.2-1.3) mg/dL AST 19 (14-36) U/L ALT 23 (4-34) U/L Alkaline Phosphatase 93 (38-126) U/L Total Protein 6.1 L (6.3-8.2) g/dL Albumin 4.0 (3.5-5.0) g/dL TSH 2.890 (0.465-4.680) mIU/L Disposition Clinical Impression: Esophageal foreign body Disposition: OTHER INSTITUTION NOT DEFINED Condition: Stable Referrals: Abby Santiago, NPC [Primary Care Provider] - 1-2 days - Out of Hospital Transfer - Req. Specs Out of Hospital Transfer - Requested Specifics: Other Emergency Center ([facility])
[2024-10-17 04:35] LABS: Basophils % (A) 0 %; Eosinophils # (A) 0.1 k/uL (0-0.7); Eosinophils % (A) 2 %; HCT 41.7 % (34.0-46.0); Lymphocytes # (A) 1.8 k/uL (1.0-4.8); Lymphocytes % (A) 30 %; MCH 29.6 pg (25.0-35.0); MCHC 33.5 g/dL (31.0-37.0); MCV 88.3 fL (80.0-100.0); Mean Platelet Volume 7.7; Monocytes # (A) 0.3 k/uL (0-1.0); Monocytes % (A) 5 %; Neutrophils # (A) 3.7 k/uL (1.3-7.7); Neutrophils % (A) 62 %; Platelet Count 244 k/uL (150-450); RBC 4.72 m/uL (3.80-5.40); RDW 12.5 % (11.5-15.5); WBC 6.1 k/uL (3.8-10.6)
[2024-10-17] MEDS: FAMOTIDINE 20 MG/2 ML VIAL IV STA (04:48)
[2024-10-17] MEDS: MAG HYDROX/AL HYDROX/SIMETH 30 ML, HYOSCYAMINE ELIXIR 10 ML, LIDOCAINE VISCOUS 2% 10 ML PO STA (04:48)
[2024-10-17] MEDS: ONDANSETRON 4 MG/2 ML VIAL IVP STA ×2 (04:49→07:45)
[2024-10-17] MEDS: GLUCAGON 1 MG/ML VIAL IVP STA (04:49)
[2024-10-17 04:58] LABS: ALT 23 U/L (4-34); AST 19 U/L (14-36); African American GFR (CKD) >90 (>60 ml/min/1.73 sqM); Alkaline Phosphatase 93 U/L (38-126); Anion Gap 6 mmol/L; Blood Urea Nitrogen 15 mg/dL (7-17); Calcium 9.3 mg/dL (8.4-10.2); Carbon Dioxide 25 mmol/L (22-30); Chloride 108 mmol/L (98-107); Glucose 201 mg/dL (74-99); Non-African American GFR(CKD) 84 (>60 ml/min/1.73 sqM); Potassium 3.8 mmol/L (3.5-5.1); Sodium 139 mmol/L (137-145); Total Bilirubin 0.5 mg/dL (0.2-1.3); Total Protein 6.1 g/dL (6.3-8.2)
--- NOTE | 2024-10-17 05:20 | CT ---
EXAM: CT Neck Without Intravenous Contrast CLINICAL HISTORY: ITS.REASON CT Reason: diff swallowing,FB sense base of throat, ant neck TECHNIQUE: Axial computed tomography images of the neck without intravenous contrast. CTDI is 9.8 mGy and DLP is 375.4 mGy-cm. This CT exam was performed using one or more of the following dose reduction techniques: automated exposure control, adjustment of the mA and/or kV according to patient size, and/or use of iterative reconstruction technique. COMPARISON: 03/07/2023 FINDINGS: No radiopaque foreign bodies identified Tonsils: No tonsillar enlargement. Larynx: Epiglottis is unremarkable. Airway: Aerodigestive tract is patent. Bones: No acute fracture. Upper lungs: Clear. IMPRESSION: No acute findings.
[2024-10-17 06:28] VITALS: BP 106/73; PULSE 74
[2024-10-17] MEDS: MORPHINE SULFATE 4 MG/ML SYRINGE IVP STA (07:46)
== END 2024-10-17 07:45 | disposition other institution (70) ==
LOC: EC 03:52
DX: T18.108A Unspecified foreign body in esophagus causing other injury, initial encounter (principal); Z88.1 Allergy status to other antibiotic agents; Z91.09 Other allergy status, other than to drugs and biological substances; Z88.8 Allergy status to other drugs, medicaments and biological substances
CPT/HCPCS: 36415; 80053; 84443; 85025; 70490; 99285; 96374; 96375; 96376; J1610; J2405; J3490

== ENCOUNTER → 2024-10-26 | Outpatient (CLI) | payer MEDICARE ==
--- NOTE | 2024-10-26 15:56 | BD ---
EXAMINATION TYPE: Axial Bone Density DATE OF EXAM: 10/26/2024 CLINICAL HISTORY: 54 years old Female. ICD-10 CODE: Z78.0 Asymptomatic menopausal state , Additional History: Height: 65 Weight: 240.9 FRAX RISK QUESTIONS: Alcohol (3 or more units per day): no Family History (Parent hip fracture): no Glucocorticoids (More than 3mos): no (Ex: prednisone, prednisolone, methylprednisolone, dexamethasone, and hydrocortisone). History of Fracture in Adulthood: yes Secondary Osteoporosis: 1. Type 1 Diabetes: no 2. Hyperthyroidism: no 3. Menopause before 45: yes 4. Malnutrition: no 5. Chronic liver disease: fatty liver Rheumatoid Arthritis: no Current Tobacco Use: no RISK FACTORS HISTORY OF: Hip Fracture (Right/Left): no Spine Fracture: no History of Wrist Fracture: no Surgery to Spine/Hip(right/left)/Wrist (right/left): no When: MEDICATIONS: Thyroid Medications: no Osteoporosis Medications: no EXAM MEASUREMENTS: Bone mineral densitometry was performed using the eshtery System. Bone mineral density as measured about the Lumbar spine is: ----- L1-L4(G/cm2): 1.168 T Score Values are as follows: ----- L1: 0.1 ----- L2: -0.8 ----- L3: -0.1 ----- L4: 0.1 ----- L1-L4: -0.1 Z Score Values are as follows: ----- L1: -0.3 ----- L2: -1.2 ----- L3: -0.5 ----- L4: -0.3 ----- L1-L4: -0.5 Baseline Study Bone mineral density about the R hip (g/cm2): 0.788 Bone mineral density about the L hip (g/cm2): 0.769 T Score values are as follows: -----R Neck: -2.5 -----L Neck: -2.8 -----R Total: -1.7 -----L Total: -1.9 Z Score values are as follows: -----R Neck: -2.3 -----L Neck: -2.6 -----R Total: -1.9 -----L Total: -2.1 Baseline Study FRAX%s: The graph provided illustrates a 16.3% chance for a major osteoporotic fx and a 4.1% chance f or the hips probability for fx in 10 years time. IMPRESSION: Osteoporosis (T Score less than -2.5). There is increased fracture risk and therapy is usually indicated based on age. Re-Screen 1-2 years. NOTE: T-SCORE=SD OF THE YOUNG ADULT MEAN. [facility], , 10/26/2024 3:54 PM
== END | disposition home or self-care (01) ==
LOC: RADBDWWP 12:10
PROVIDERS: ATTEND Family Medicine
DX: M81.0 Age-related osteoporosis without current pathological fracture (principal); Z78.0 Asymptomatic menopausal state
CPT/HCPCS: 77080

== ENCOUNTER → 2024-10-31 | Outpatient (CLI) | payer MEDICARE ==
--- NOTE | 2024-11-04 01:15 | MM ---
Reason for Exam: Screening (asymptomatic). Last mammogram was performed 1 year(s) and 9 month(s) ago. Patient History: Menarche at age 12. First Full-Term at age 28. Hysterectomy at age 36. Postmenopausal. Mother had ovarian cancer. Risk Values: Susie 5 year model risk: 1.3%. NCI Lifetime model risk: 9.3%. Prior Study Comparison: 10[facility]23 Bilateral MG 3D screening mammo w/cad, [facility]. Tissue Density: There are scattered areas of fibroglandular density. Findings: Analyzed By CAD. The pattern is symmetrical. No significant interval change. Core markers are present bilaterally. No suspicious groups of microcalcifications, spiculated or lobular masses, architectural distortion or other secondary signs of malignancy are mammographically apparent. Overall Assessment: Benign, BI-RAD 2 Management: Screening Mammogram of both breasts in 1 year. A negative mammogram report should not preclude additional follow up of suspicious palpable abnormalities. Patient should continue monthly self breast exam. A clinical breast exam by your physician is recommended on an annual basis and results should be correlated with mammographic findings. Note on Susie scores and lifetime risk: 1. A Susie score greater than 3% is considered moderate risk. If this is the case, consider specialist referral to assess eligibility for a risk reducing agent. 2. If overall lifetime risk for the development of breast cancer is 20% or higher, the patient may qualify for future screening with alternating mammogram and breast MRI. [facility], , 11/04/2024 1:12 AM. Electronically signed and approved by: Gil Lorenzana D.O. Radiologis
== END | disposition home or self-care (01) ==
LOC: RADMAMWWP 15:48
PROVIDERS: ATTEND Family Medicine
DX: Z12.31 Encounter for screening mammogram for malignant neoplasm of breast (principal); Z78.0 Asymptomatic menopausal state; R92.323 Mammographic fibroglandular density, bilateral breasts
CPT/HCPCS: 77063; 77067

== ENCOUNTER 2024-12-11 04:18 | Observation (INO) | payer MEDICARE ==
[2024-12-11] MEDS: tiZANidine 4 MG TAB PO STA (04:56)
--- NOTE | 2024-12-11 04:56 | ED ---
General Adult HPI <AkshatBabar Braulio - Last Filed: 12/11/24 09:04> - General Source: patient, EMS Mode of arrival: EMS Limitations: no limitations <Bev Espinoza - Last Filed: 12/17/24 19:25> - General Chief complaint: Urogenital Stated complaint: Kidney Pain Time Seen by Provider: 12/11/24 04:20 - History of Present Illness Initial comments: Patient is a 54-year-old female the past medical history of hypertension, asthma, prior CVA, fibromyalgia presenting today for left-sided back pain. Patient states that as she was standing up off the toilet yesterday afternoon she felt aching and sharp pain on the left side of her back. Worsens with movements and began radiating down her left leg this evening. She has not attempted any home pain medications. She denies history of kidney stones, dysur ia or hematuria. She denies recent injuries, fevers, IV drug use, history of cancer, multi urinating, incontinence of stool, saddle anesthesia. The pain does not radiate around to her abdomen, she denies chest pain or shortness of breath, vomiting melena or hematochezia. States that earlier she did feel like he lost control of her bladder due to pain. States she has chronic diarrhea after eating. States she has chronic back pain and was recommended to have surgery however at this time does not want surgery. (Bev) - Related Data Home Medications Medication Instructions Recorded Confirmed Albuterol Sulfate [Albuterol 2 puff INHALATION RT-Q6H PRN 11/15/22 12/11/24 Sulfate Hfa] Apixaban [Eliquis] 5 mg PO BID 11/15/22 12/11/24 Insulin Aspart [NovoLOG Flexpen] See Protocol SQ TID-W/MEALS 11/15/22 12/11/24 Montelukast Sodium [Singulair] 10 mg PO HS 11/15/22 12/11/24 Ranolazine [Ranexa] 500 mg PO BID 11/28/23 12/11/24 Isosorbide Mononitrate ER [Imdur] 60 mg PO DAILY 12/19/23 12/11/24 Insulin Degludec [Tresiba 44 units SQ DAILY 03/15/24 12/11/24 Flextouch U-100 Pen] Fluticasone Propion/Salmeterol 1 puff INHALATION RT-BID PRN 06/06/24 12/11/24 [Advair 100-50 Diskus] Insulin Aspart [NovoLOG Flexpen] 17 units SQ TID-W/MEALS 06/06/24 12/11/24 Semaglutide [Ozempic] 0.25 mg SQ TH 06/06/24 12/11/24 Morse Carbonate 300 mg PO BID 08/25/24 12/11/24 clonazePAM [KlonoPIN] 0.5 mg PO BID 08/25/24 12/11/24 dilTIAZem HCL [Tiazac] 180 mg PO HS 08/25/24 12/11/24 ARIPiprazole [Abilify] 10 mg PO HS 12/11/24 12/11/24 Magnesium Oxide [Magox 400] 400 mg PO DAILY 12/11/24 12/11/24 Previous Rx's Medication Instructions Recorded traZODone HCL [Desyrel] 50 mg PO HS PRN #30 tab 12/20/23 Allergies Allergy/AdvReac Type Severity Reaction Status Date / Time adhesive Allergy red skin Verified 12/11/24 10:02 trimethobenzamide Allergy Rash/Hives Verified 12/11/24 10:02 [From Tigan] vancomycin Allergy Rash/Hives Verified 12/11/24 10:02 Review of Systems ROS Other: All systems not noted in ROS Statement are negative. <Babar Oden - Last Filed: 12/11/24 09:04> ROS Other: All systems not noted in ROS Statement are negative. <Bev Espinoza - Last Filed: 12/17/24 19:25> ROS Statement: Those systems with pertinent positive or pertinent negative responses have been documented in the HPI. Past Medical History Past Medical History: Asthma, Chest Pain / Angina, CVA/TIA, Diabetes Mellitus, Deep Vein Thrombosis (DVT), Fibromyalgia, GERD/Reflux, Hyperlipidemia, Hypertension, Liver Disease, Myocardial Infarction ([place]), Pulmonary Embolus ([place]) Additional Past Medical History / Comment(s): fibomyalgia, light weakness on left after stroke coming back. mild [place] from EKG unknown time. recent blood in stools. non alcoholic fatty liver,, diverticulosis. Last Myocardial Infarction Date:: unk History of Any Multi-Drug Resistant Organisms: C-DIFF Date of last positivie culture/infection: 2019 MDRO Source:: stool Past Surgical History: Appendectomy, Cholecystectomy, Hysterectomy, Orthopedic Surgery, Tonsillectomy Additional Past Surgical History / Comment(s): left knee replaced. left rotator cuff repair . rt hip stretched bursa. colonoscopies, laproscopic surgery to rem ove abdominal adhesions, left femur sx Past Anesthesia/Blood Transfusion Reactions: Postoperative Nausea & Vomiting (PONV) Additional Past Anesthesia/Blood Transfusion Reaction / Comment(s): with lap procedure had a hard time waking up. Past Psychological History: Bipolar, Depression Smoking Status: Never smoker Past Alcohol Use History: Rare Past Drug Use History: Marijuana - Past Family History Mother Family Medical History: Cancer Additional Family Medical History / Comment(s): uterine Father Family Medical History: Cancer Additional Family Medical History / Comment(s): lung <Bev Espinoza - Last Filed: 12/17/24 19:25> General Exam Limitations: no limitations <Bev Espinoza - Last Filed: 12/17/24 19:25> - General Exam Comments Initial Comments: PE: CONSTITUTIONAL: [no apparent distress, well appearing] SKIN: [warm, dry, no jaundice, hives or petechiae no abrasions, bruising or rashes in area of pain] EYES:[ pupils are equally round, extraocular movements intact without nystagmus, clear conjunctiva, non-icteric sclera] HENT: [normocephalic, atraumatic, moist mucus membranes, oropharynx clear without exudates] NECK: , [Full range of motion, normal appearance] PULMONARY: [clear to auscultation without wheezes, rhonchi, or rales, normal excursion, no accessory muscle use and no stridor] CARDIOVASCULAR:[ regular rate, rhythm, normal S1 and S2. No appreciated murmurs, rubs or gallops. Strong radial and dorsalis pedis pulses with intact distal perfusion. No lower extremity edema] GASTROINTESTINAL: [soft, active bowel sounds throughout, non-tender, non-dist ended, no palpable masses, no rebound or guarding. No hepatosplenomegaly] GENITOURINARY: Positive CVA tenderness MUSCULOSKELETAL: [Extremities have no gross deformity, no edema, redness, or swelling. No midline spinal tenderness palpation, palpable muscle spasm along left paraspinal muscles, positive straight leg raise bilaterally] NEUROLOGIC: [_a/o x 3, GCS 15, normal mentation and speech. No focal neurologic deficits lower extremities are neurovascularly intact] PSYCHIATRIC:[ _normal mood and affect, thought process is clear and linear] (Bev Espinoza) Course Vital Signs 12/11/24 12/11/24 12/11/24 04:19 07:13 08:21 Temperature 97.7 F Pulse Rate 75 73 68 Respiratory 18 16 18 Rate Blood Pressure 164/66 152/72 113/55 O2 Sat by Pulse 97 98 97 Oximetry 12/11/24 12/11/24 12/11/24 14:40 18:12 20:17 Temperature 98 F 97.2 F L Pulse Rate 67 66 63 Respiratory 18 18 16 Rate Blood Pressure 137/54 145/53 138/46 O2 Sat by Pulse 100 100 99 Oximetry 12/11/24 12/11/24 20:40 22:13 Temperature 97.4 F L Pulse Rate 62 73 Respiratory 16 Rate Blood Pressure 109/44 117/49 O2 Sat by Pulse 96 Oximetry EKG Findings - EKG Comments: EKG Findings:: Sinus Rhythm rate 63 bpm, NV int 149 ms, QRS duration 91 ms QT/QTc 4 7/450 ms, normal axis, no ST elevations or depressions, no arrhythmia No STEMI <Bev Espinoza - Last Filed: 12/17/24 19:25> Medical Decision Making - Lab Data Result diagrams: 12/11/24 06:39 12/11/24 08:14 <Babar Oden - Last Filed: 12/11/24 09:04> - Lab Data Result diagrams: 12/14/24 05:47 12/14/24 05:47 <Bev Espinoza - Last Filed: 12/17/24 19:25> - Medical Decision Making Patient care signed out to me by previous shift physician, Dr. Espinoza. Briefly, patient is a 54-year-old female presents emergency department for chief complaint of lower left back pain suspicious for kidney pain she does have associated urinary symptoms. Initial presentation was concerning for urinary tract infection. According to Dr. Espinoza at signout patient began complaining of some atypical chest pain typical features. She did have some risk factors concerning for acute coronary syndrome. Troponin is negative. Lipase level is 1000. Urine studies and CBC are unremarkable. Patient be admitted for pancreatitis. GI and cardiology were consulted. Case discussed with hospitalist for admission (Babar Oden) Was pt. sent in by a medical professional or institution ([facility]ent, ENGINEERING PROGRAM ANALYST, urgent care, hospital, or skilled nursing...) When possible be specific @ -[No] Did you speak to anyone other than the patient for history (EMS, parent, family, police, friend...)? What history was obtained from this source @ -[No] Did you review nursing and triage notes (agree or disagree)? Why? @ -[I reviewed nursing and triage notes] of note triage note states that patient has stated that she is having kidney pain however on my assessment patient denies history of kidney stones, does not state that she had kidney pain and instead describes a shooting pain that radiates from her left back down to her left leg Were old charts reviewed (outside hosp., previous admission, EMS record, old EKG, old radiological studies, urgent care reports/EKG's, skilled nursing records)? Report findings @ -[Medical records reviewed] Differential Diagnosis (chest pain, altered mental status, abdominal pain women, abdominal pain men, vaginal bleeding, weakness, fever, dyspnea, syncope, headache, dizziness, GI bleed, back pain, seizure, CVA, palpatations, mental health, musculoskeletal)? @ -Differential Back Pain: Strain, zoster, fracture, subluxation, disc herniation, DJD, spinal stenosis, pancreatitis, peptic ulcer disease, pyelonephritis, kidney stone, this is not meant to be an all-inclusive list. EKG interpreted by me (3pts min.). @ -[As above] X-rays interpreted by me (1pt min.). @ -[None done] CT interpreted by me (1pt min.). @ -[None done] U/S interpreted by me (1pt. min.). @ -[None done] What testing was considered but not performed or refused? (CT, X-rays, U/S, labs)? Why? @ -[None] What meds were considered but not given or refused? Why? @ -[None] Did you discuss the management of the patient with other professionals (professionals i.e. [facility] Nugent, ENGINEERING PROGRAM ANALYST, lab, RT, psych nurse, perinatal social worker, operations manager station, teacher, classification officer, mattress spring encaser)? Give summary @ -[No] Was smoking cessation discussed for >3mins.? @ -[No] Was critical care preformed (if so, how long)? @ -[No] Were there social determinants of health that impacted care today? How? (Homelessness, low income, unemployed, alcoholism, drug addiction, transportation, low edu. Level, literacy, decrease access to med. care, fpc, rehab)? @ -[No] Was there de-escalation of care discussed even if they declined (Discuss DNR or withdrawal of care, Hospice)? @ -[No] What co-morbidities impacted this encounter? (DM, HTN, Smoking, COPD, CAD, Cancer, CVA, ARF, Chemo, Hep., AIDS, mental health diagnosis, sleep apnea, morbid obesity)? Fibromyalgia, hypertension Was patient admitted / discharged? Hospital course, mention meds given and route, prescriptions, significant lab abnormalities, going to OR and other pertinent info. @ -Signed out pending completion of labs- Pt is a 54-year-old female presenting today pain that began yesterday upon standing up off the toilet now radiates down her left leg. No red flag symptoms. On my assessment patient has no midline spinal tenderness to palpation, and a positive straight leg raise. Palpable muscle spasm tenderness. She is mildly hypertensive I suspect this is secondary to pain. Lower extremities are neurovascularly intact. Plan for urinalysis, if significant amount of blood in urine will consider CT stone study, however for the time being, pt's symptoms are more suggestive of musculoskeletal etiology so we will treat patient's pain with muscle relaxant, lidocaine patch, IM morphine as patient is unable to receive NSAIDs. Pt agreeable w/ POC. While pending lab results, after receiving IM morphine, patient complained of burning left-sided chest pain rated on her left arm. Began to improve spontaneously. She does have a history of a prior [place] so an EKG and basic labs including chest x-ray troponin CBC, CMP obtained. Sublingual nitro, aspirin and IV morphine ordered. Pt signed out to oncoming physician, Dr. Sue, pending completion of labs/imaging. Undiagnosed new problem with uncertain prognosis? @ -[No] Drug Therapy requiring intensive monitoring for toxicity (Heparin, Nitro, Insulin, Cardizem)? @ -[No] Were any procedures done? @ -[No] Diagnosis/symptom? left back pain, chest pain Acute, or Chronic, or Acute on Chronic? @ acute Uncomplicated (without systemic symptoms) or Complicated (systemic symptoms)? @ complicated Side effects of treatment? @ -[No] Exacerbation, Progression, or Severe Exacerbation? @ -[No] Poses a threat to life or bodily function? How? (Chest pain, [place], [place], pneumonia, PE, COPD, DKA, ARF, appy, cholecystitis, CVA, Diverticulitis, Homicidal, Suicidal, threat to staff... and all critical care pts) @ -Back pain, no, chest pain, potentially, if 2/2 ACS (,Bev) - Lab Data Lab Results 12/11/24 12/11/24 12/11/24 Range/Units 05:05 06:39 08:14 WBC 8.5 (3.8-10.6) k/uL RBC 4.95 (3.80-5.40) m/uL Hgb 14.8 (11.4-16.0) gm/dL Hct 43.9 (34.0-46.0) % MCV 88.8 (80.0-100.0) fL MCH 29.8 (25.0-35.0) pg MCHC 33.6 (31.0-37.0) g/dL RDW 12.5 (11.5-15.5) % Plt Count 242 (150-450) k/uL MPV 7.2 Neutrophils % 59 % Lymphocytes % 31 % Monocytes % 5 % Eosinophils % 2 % Basophils % 1 % Neutrophils # 5.1 (1.3-7.7) k/uL Lymphocytes # 2.6 (1.0-4.8) k/uL Monocytes # 0.4 (0-1.0) k/uL Eosinophils # 0.2 (0-0.7) k/uL Basophils # 0.1 (0-0.2) k/uL Sodium (137-145) mmol/L Potassium (3.5-5.1) mmol/L Chloride (98-107) mmol/L Carbon Dioxide (22-30) mmol/L Anion Gap mmol/L BUN (7-17) mg/dL Creatinine (0.52-1.04) mg/dL Est GFR (CKD-EPI)AfAm (>60 ml/min/1.73 sqM) Est GFR (CKD-EPI)NonAf (>60 ml/min/1.73 sqM) Glucose (74-99) mg/dL Calcium (8.4-10.2) mg/dL Total Bilirubin (0.2-1.3) mg/dL AST (14-36) U/L ALT (4-34) U/L Alkaline Phosphatase (38-126) U/L Troponin I <0.012 (0.000-0.034) ng/mL Total Protein (6.3-8.2) g/dL Albumin (3.5-5.0) g/dL Lipase (23-300) U/L Urine Color Light Yellow Urine Appearance Clear (Clear) Urine pH 5.0 (5.0-8.0) Ur Specific [place] 1.026 (1.001-1.035) Urine Protein Negative (Negative) Urine Glucose (UA) Negative (Negative) Urine Ketones Negative (Negative) Urine Blood Negative (Negative) Urine Nitrite Negative (Negative) Urine Bilirubin Negative (Negative) Urine Urobilinogen <2.0 (<2.0) mg/dL Ur Leukocyte Esterase Negative (Negative) Urine RBC <1 (0-5) /hpf Urine WBC 1 (0-5) /hpf Ur Squamous Epith Cells 3 (0-4) /hpf Hyaline Casts 1 (0-2) /lpf Urine Mucus Rare H (None) /hpf 12/11/24 Range/Units 08:14 WBC (3.8-10.6) k/uL RBC (3.80-5.40) m/uL Hgb (11.4-16.0) gm/dL Hct (34.0-46.0) % MCV (80.0-100.0) fL MCH (25.0-35.0) pg MCHC (31.0-37.0) g/dL RDW (11.5-15.5) % Plt Count (150-450) k/uL MPV Neutrophils % % Lymphocytes % % Monocytes % % Eosinophils % % Basophils % % Neutrophils # (1.3-7.7) k/uL Lymphocytes # (1.0-4.8) k/uL Monocytes # (0-1.0) k/uL Eosinophils # (0-0.7) k/uL Basophils # (0-0.2) k/uL Sodium 141 (137-145) mmol/L Potassium 4.5 (3.5-5.1) mmol/L Chloride 105 (98-107) mmol/L Carbon Dioxide 27 (22-30) mmol/L Anion Gap 9 mmol/L BUN 17 (7-17) mg/dL Creatinine 0.63 (0.52-1.04) mg/dL Est GFR (CKD-EPI)AfAm >90 (>60 ml/min/1.73 sqM) Est GFR (CKD-EPI)NonAf >90 (>60 ml/min/1.73 sqM) Glucose 95 (74-99) mg/dL Calcium 9.3 (8.4-10.2) mg/dL Total Bilirubin 0.6 (0.2-1.3) mg/dL AST 541 H (14-36) U/L ALT 286 H (4-34) U/L Alkaline Phosphatase 137 H (38-126) U/L Troponin I (0.000-0.034) ng/mL Total Protein 6.3 (6.3-8.2) g/dL Albumin 3.9 (3.5-5.0) g/dL Lipase 1068 H (23-300) U/L Urine Color Urine Appearance (Clear) Urine pH (5.0-8.0) Ur Specific [place] (1.001-1.035) Urine Protein (Negative) Urine Glucose (UA) (Negative) Urine Ketones (Negative) Urine Blood (Negative) Urine Nitrite (Negative) Urine Bilirubin (Negative) Urine Urobilinogen (<2.0) mg/dL Ur Leukocyte Esterase (Negative) Urine RBC (0-5) /hpf Urine WBC (0-5) /hpf Ur Squamous Epith Cells (0-4) /hpf Hyaline Casts (0-2) /lpf Urine Mucus (None) /hpf Disposition Decision Time: 09:04 <Babar Oden - Last Filed: 12/11/24 09:04> <Bev Espinoza - Last Filed: 12/17/24 19:25> Clinical Impression: Pancreatitis Disposition: ADMITTED IP TO THIS [facility] Condition: Fair
[2024-12-11] MEDS: ONDANSETRON ODT 4 MG TAB PO STA (04:57)
[2024-12-11] MEDS: MORPHINE SULFATE 4 MG/ML SYRINGE IM STA (04:58)
[2024-12-11] MEDS: LIDOCAINE 4% PATCH TOPICAL ONE (05:01)
[2024-12-11] MEDS ORDERED: NITROGLYCERIN SL TABS 0.4 MG TAB SUBLINGUAL PRN (06:05)
--- NOTE | 2024-12-11 06:42 | XR ---
EXAM: XR Chest, 2 Views CLINICAL HISTORY: ITS.REASON XR Reason: chest pain TECHNIQUE: Frontal and lateral views of the chest. COMPARISON: X-ray dated 09/09 22.4 FINDINGS: Lungs: Unremarkable. No consolidation. Pleural space: Unremarkable. No pneumothorax. Heart: Unremarkable. No cardiomegaly. Mediastinum: Unremarkable. Normal mediastinal contour. Bones/joints: Mild degenerative changes are seen within the spine and shoulders. No acute fracture. IMPRESSION: No acute findings in the chest.
[2024-12-11 06:50] LABS: Hyaline Casts,Urine 1 /lpf (0-2); Mucus,Urine Rare /hpf; RBC,Urine <1 /hpf (0-5); Squamous Epithelial Cell,Urine 3 /hpf (0-4); WBC,Urine 1 /hpf (0-5)
[2024-12-11 06:53] LABS: Basophils # (A) 0.1 k/uL (0-0.2); Basophils % (A) 1 %; Eosinophils # (A) 0.2 k/uL (0-0.7); Eosinophils % (A) 2 %; HCT 43.9 % (34.0-46.0); HGB 14.8 gm/dL (11.4-16.0); Lymphocytes # (A) 2.6 k/uL (1.0-4.8); Lymphocytes % (A) 31 %; MCH 29.8 pg (25.0-35.0); MCHC 33.6 g/dL (31.0-37.0); MCV 88.8 fL (80.0-100.0); Mean Platelet Volume 7.2; Monocytes # (A) 0.4 k/uL (0-1.0); Monocytes % (A) 5 %; Neutrophils # (A) 5.1 k/uL (1.3-7.7); Neutrophils % (A) 59 %; Platelet Count 242 k/uL (150-450); RBC 4.95 m/uL (3.80-5.40); RDW 12.5 % (11.5-15.5); WBC 8.5 k/uL (3.8-10.6)
[2024-12-11] MEDS: ASPIRIN 81 MG PO STA (07:11)
[2024-12-11 07:59] LABS: Appearance,Urine Clear (Clear); Bilirubin,Urine Negative (Negative); Blood,Urine Negative (Negative); Color,Urine Light Yellow; Glucose,Urine (UA) Negative (Negative); Ketones,Urine Negative (Negative); Leukocyte Esterase,Urine Negative (Negative); Nitrite,Urine Negative (Negative); Protein,Urine Negative (Negative); Specific Gravity,Urine 1.026 (1.001-1.035); Urobilinogen,Urine <2.0 mg/dL (<2.0)
[2024-12-11] MEDS: ONDANSETRON 4 MG/2 ML VIAL IVP STA (08:22)
[2024-12-11] MEDS: MORPHINE SULFATE 4 MG/ML SYRINGE IVP STA (08:23)
[2024-12-11 08:35] LABS: ALT 286 U/L (4-34); AST 541 U/L (14-36); African American GFR (CKD) >90 (>60 ml/min/1.73 sqM); Albumin 3.9 g/dL (3.5-5.0); Alkaline Phosphatase 137 U/L (38-126); Anion Gap 9 mmol/L; Blood Urea Nitrogen 17 mg/dL (7-17); Calcium 9.3 mg/dL (8.4-10.2); Carbon Dioxide 27 mmol/L (22-30); Chloride 105 mmol/L (98-107); Glucose 95 mg/dL (74-99); Lipase 1068 U/L (23-300); Non-African American GFR(CKD) >90 (>60 ml/min/1.73 sqM); Potassium 4.5 mmol/L (3.5-5.1); Sodium 141 mmol/L (137-145); Total Bilirubin 0.6 mg/dL (0.2-1.3); Total Protein 6.3 g/dL (6.3-8.2)
[2024-12-11] MEDS ORDERED: NALOXONE 0.4 MG/ML 1 ML VIAL IV PRN (08:58)
[2024-12-11] MEDS: SODIUM CHLORIDE 0.9% 1,000 ML IV STA ×2 (09:05)
[2024-12-11] MEDS ORDERED: IOPAMIDOL CONTRAST (ORAL USE) VIAL PO PRN (12:04)
[2024-12-11] MEDS ORDERED: ALBUTEROL NEBULIZED 2.5 MG/3 ML INHALATION PRN (13:48)
[2024-12-11] MEDS ORDERED: traZODone HCL 50 MG TAB PO PRN (13:54)
--- NOTE | 2024-12-11 13:59 | P.HPIM ---
History of Present Illness This is a pleasant 54 years old female with past medical history of multiple medical problems as below Patient presents urgently because of left flank pain since yesterday at 2 PM. She rates her pain at rest 10/10 but now is better with the treatment, she describes it as a punch pain. She denies radiating to the back but states that it radiates down all the way to her foot left foot. No significant precipitating or relieving factors. The pain is not radiating to the back as per patient While she was in the emergency room she had a squeezing chest pain in the middle with no radiation that lasts for about 20 minutes. Currently she is chest pain- free. Denies dyspnea or coughing Patient states that she was just recently treated for bronchitis although she have not seen her lung doctor for a while Also she states recently she was treated for UTI x 10 days with Bactrim, she finished her antibiotic about a week earlier While in the emergency room also patient started having periumbilical abdominal pain started 2 hours earlier about 8/10 and achy She has chronic diarrhea, about 6 times per day She was able to eat a a lot today as the patient explains Patient is afebrile and blood pressure stable CBC, BMP and INR and troponin x 1 are negative Urinalysis is unremarkable Liver enzymes mildly elevated Lipase is 1068 EKG showing sinus rhythm at [address]-T changes Chest x-ray is negative for acute process Review of Systems Review of systems CONSTITUTIONAL: No fever, no malaise, no fatigue. HEENT: No recent visual problems or hearing problems. Denied any sore throat. CARDIOVASCULAR: No orthopnea, PND, no palpitations, no syncope. PULMONARY: No shortness of breath, no cough, no hemoptysis. GASTROINTESTINAL: No diarrhea, no nausea, no vomiting, . Normoactive bowel sounds. NEUROLOGICAL: No headaches, no weakness, no numbness. HEMATOLOGICAL: Denies any bleeding or petechiae. GENITOURINARY: Denies any burning micturition, frequency, or urgency. MUSCULOSKELETAL/RHEUMATOLOGICAL: Denies any joint pain, swelling, or any muscle pain. ENDOCRINE: Denies any polyuria or polydipsia. Past Medical History Past Medical History: Asthma, Chest Pain / Angina, CVA/TIA, Diabetes Mellitus, Deep Vein Thrombosis (DVT), Fibromyalgia, GERD/Reflux, Hyperlipidemia, Hypertension, Liver Disease, Myocardial Infarction ([place]), Pulmonary Embolus (PE) Additional Past Medical History / Comment(s): fibomyalgia, light weakness on left after stroke coming back. mild [place] from EKG unknown time. recent blood in stools. non alcoholic fatty liver,, diverticulosis. Last Myocardial Infarction Date:: unk History of Any Multi-Drug Resistant Organisms: C-DIFF Date of last positivie culture/infection: 2019 MDRO Source:: stool Past Surgical History: Appendectomy, Cholecystectomy, Hysterectomy, Orthopedic Surgery, Tonsillectomy Additional Past Surgical History / Comment(s): left knee replaced. left rotator cuff repair . rt hip stretched bursa. colonoscopies, laproscopic surgery to remove abdominal adhesions, left femur sx Past Anesthesia/Blood Transfusion Reactions: Postoperative Nausea & Vomiting (PONV) Additional Past Anesthesia/Blood Transfusion Reaction / Comment(s): with lap procedure had a hard time waking up. Past Psychological History: Bipolar, Depression Smoking Status: Never smoker Past Alcohol Use History: Rare Past Drug Use History: Marijuana - Past Family History Mother Family Medical History: Cancer Additional Family Medical History / Comment(s): uterine Father Family Medical History: Cancer Additional Family Medical History / Comment(s): lung Medications and Allergies Home Medications Medication Instructions Recorded Confirmed Type Albuterol Sulfate [Albuterol 2 puff INHALATION RT-Q6H PRN 11/15/22 12/11/24 History Sulfate Hfa] Apixaban [Eliquis] 5 mg PO BID 11/15/22 12/11/24 History Atorvastatin Calcium [Lipitor] 40 mg PO DAILY 11/15/22 12/11/24 History Insulin Aspart [NovoLOG Flexpen] See Protocol SQ TID-W/MEALS 11/15/22 12/11/24 History Montelukast Sodium [Singulair] 10 mg PO HS 11/15/22 12/11/24 History Ranolazine [Ranexa] 500 mg PO BID 11/28/23 12/11/24 History Isosorbide Mononitrate ER [Imdur] 60 mg PO DAILY 12/19/23 12/11/24 History traZODone HCL [Desyrel] 50 mg PO HS PRN #30 tab 12/20/23 12/11/24 Rx Insulin Degludec [Tresiba 44 units SQ DAILY 03/15/24 12/11/24 History Flextouch U-100 Pen] Fluticasone Propion/Salmeterol 1 puff INHALATION RT-BID PRN 06/06/24 12/11/24 History [Advair 100-50 Diskus] Insulin Aspart [NovoLOG Flexpen] 17 units SQ TID-W/MEALS 06/06/24 12/11/24 History Semaglutide [Ozempic] 0.25 mg SQ TH 06/06/24 12/11/24 History [place] Carbonate 300 mg PO BID 08/25/24 12/11/24 History clonazePAM [KlonoPIN] 0.5 mg PO BID 08/25/24 12/11/24 History dilTIAZem HCL [Tiazac] 180 mg PO HS 08/25/24 12/11/24 History ARIPiprazole [Abilify] 10 mg PO HS 12/11/24 12/11/24 History Magnesium Oxide [Magox 400] 400 mg PO DAILY 12/11/24 12/11/24 History Allergies Allergy/AdvReac Type Severity Reaction Status Date / Time adhesive Allergy red skin Verified 12/11/24 10:02 trimethobenzamide Allergy Rash/Hives Verified 12/11/24 10:02 [From [place]] vancomycin Allergy Rash/Hives Verified 12/11/24 10:02 Physical Exam Vitals: Vital Signs Temp Pulse Resp BP Pulse Ox 12/11/24 08:21 68 18 113/55 97 12/11/24 07:13 73 16 152/72 98 12/11/24 04:19 97.7 F 75 18 164/66 97 Intake and Output 12/10/24 12/11/24 12/11/24 22:59 06:59 14:59 Other: Weight 108.862 kg GENERAL: The patient is alert and oriented x3, not in any acute distress. Well developed, well nourished. HEENT: Pupils are round and equally reacting to light. EOMI. No scleral icterus. No conjunctival pallor. Normocephalic, atraumatic. No pharyngeal erythema. No thyromegaly. CARDIOVASCULAR: S1 and S2 present. No murmurs, rubs, or gallops. PULMONARY: Chest is clear to auscultation, no wheezing , no crackles. -ABDOMEN: Soft, epigastric tenderness, left flank tenderness, nondistended, normoactive bowel sounds. No palpable organomegaly. MUSCULOSKELETAL: No joint swelling or deformity. EXTREMITIES: No cyanosis, clubbing, or pedal edema. NEUROLOGICAL: Gross neurological examination did not reveal any focal deficits. SKIN: No rashes. no petechiae. Results CBC & Chem 7: 12/11/24 06:39 12/11/24 08:14 Labs: Abnormal Lab Results - Last 24 Hours (Table) 12/11/24 12/11/24 Range/Units 05:05 08:14 AST 541 H (14-36) U/L ALT 286 H (4-34) U/L Alkaline Phosphatase 137 H (38-126) U/L Lipase 1068 H (23-300) U/L Urine Mucus Rare H (None) /hpf Assessment and Plan Assessment: Abdominal pain Elevated lipase suspicious for possible acute pancreatitis Transaminitis Transient chest pain of 20 minutes duration History of CVA/TIA Diabetes mellitus Hypertension Hyperlipidemia History of DVT and PE Fibromyalgia History of liver disease Status post appendectomy and colectomy and hysterectomy Bipolar and depression Plan: I agree with ordering CT of the abdomen and pelvis which is pending now Continue with IV fluid Bowel rest, currently on clear liquid diet Pain management GI team consult already requested To do serial troponin Check lactic acid Cardiology team consult Hold Lipitor Labs and medication were reviewed.. Continue same treatment. Continue with symptomatic treatment. Resume home medication. Monitor lytes and vitals. DVT and GI prophylaxis. Further recommendations depends on the clinical course of the patient DVT prophylaxis hold Eliquis and switch to therapeutic dose Lovenox GI Prophylaxis: Pepcid PT/OT: Pending Prognosis is guarded
--- NOTE | 2024-12-11 14:04 | P.CRDCN ---
History of Present Illness Consult date: 12/11/24 Consult reason: chest pain History of present illness: This is a 54-year-old female patient of Dr. Loera with past medical history of paroxysmal atrial fibrillation, hypertension, dyslipidemia, diabetes, family history of premature coronary artery disease. We have been asked to evaluate the patient for chest pain. Patient states that she was laying down and all of a sudden her heart felt like it was seizing up and she had pain in her chest and down her arm. This is while she was in the emergency center. Patient presented to the hospital due to back pain. Regarding the chest pain, patient states that lasted for about 20 minutes. She did not receive nitroglycerin. She denies fever. She sometimes feels hot though. No chills. Blood pressure 113/55, heart rate 68, pulse ox 97% on room air. Patient is seen today in the emergency center waiting for a bed on the observation unit. -EKG: Sinus rhythm no acute ST changes. -Chest x-ray: No acute findings -Laboratory studies: CBC is normal. Electrolytes and renal function normal. Troponin negative x 2. Lipase 1068. -Home cardiac medications: Eliquis 5 mg twice daily, Lipitor 40 mg daily, diltiazem 180 mg at bedtime, Imdur 60 mg daily, magnesium oxide 400 mg daily, Ranexa 500 mg twice daily. -Echocardiogram performed 06/06/2024 revealed EF 55 to 60%, trace mitral regurgitation, trace tricuspid regurgitation. -Cardiac catheterization performed 11/30/2023 revealed normal coronary arteries Review Of Systems: At the time of my exam: CONSTITUTIONAL: Denies fever or chills. HEENT: Denies blurred vision, vision changes, or eye pain. Denies hemoptysis CARDIOVASCULAR: Denies chest pain. Denies orthopnea. Denies PND. Denies palpitations RESPIRATORY: Denies shortness of breath. GASTROINTESTINAL: Denies abdominal pain. Denies nausea or vomiting. HEMATOLOGIC: Denies bleeding disorders. GENITOURINARY: Denies any blood in urine. SKIN: Denies puritis. Denies rash. Physical examination: Gen: This is a 54-year-old female in no acute distress VS: reviewed HEENT: Head is atraumatic, normocephalic. Pupils equal, round. Sclerae is anicteric. NECK: Supple. No JVD. LUNGS: Clear to auscultation. No wheezes or rhonchi. No intercostal retractions. HEART: Regular rate and rhythm. No murmur. ABDOMEN: Soft No tenderness. EXTREMITIES: No pedal edema. No calf tenderness. NEUROLOGICAL: Patient is awake, alert and oriented x3. Assessment: Atypical chest pain, acute coronary syndrome ruled out Normal coronary arteries on cardiac catheterization November 2023 Paroxysmal atrial fibrillation Hypertension Dyslipidemia Diabetes Family history of premature coronary artery disease Plan: Resume patient's home cardiac medications No further cardiac workup at this time. Cardiology will sign off this case and follow on an as-needed basis. Please reconsult for any new concerns. Patient may follow-up in the office in one to [address] Loera. Thank you kindly for this consultation. Nurse practitioner note has been reviewed, I agree with documented findings and plan of care. Patient was seen and examined. Past Medical History Past Medical History: Asthma, Chest Pain / Angina, CVA/TIA, Diabetes Mellitus, Deep Vein Thrombosis (DVT), Fibromyalgia, GERD/Reflux, Hyperlipidemia, Hypertension, Liver Disease, Myocardial Infarction ([place]), Pulmonary Embolus (PE) Additional Past Medical History / Comment(s): fibomyalgia, light weakness on left after stroke coming back. mild [place] from EKG unknown time. recent blood in stools. non alcoholic fatty liver,, diverticulosis. Last Myocardial Infarction Date:: unk History of Any Multi-Drug Resistant Organisms: C-DIFF Date of last positivie culture/infection: 2019 MDRO Source:: stool Past Surgical History: Appendectomy, Cholecystectomy, Hysterectomy, Orthopedic Surgery, Tonsillectomy Additional Past Surgical History / Comment(s): left knee replaced. left rotator cuff repair . rt hip stretched bursa. colonoscopies, laproscopic surgery to remove abdominal adhesions, left femur sx Past Anesthesia/Blood Transfusion Reactions: Postoperative Nausea & Vomiting (PONV) Additional Past Anesthesia/Blood Transfusion Reaction / Comment(s): with lap procedure had a hard time waking up. Past Psychological History: Bipolar, Depression Smoking Status: Never smoker Past Alcohol Use History: Rare Past Drug Use History: Marijuana - Past Family History Mother Family Medical History: Cancer Additional Family Medical History / Comment(s): uterine Father Family Medical History: Cancer Additional Family Medical History / Comment(s): lung Medications and Allergies Home Medications Medication Instructions Recorded Confirmed Type Albuterol Sulfate [Albuterol 2 puff INHALATION RT-Q6H PRN 11/15/22 12/11/24 History Sulfate Hfa] Apixaban [Eliquis] 5 mg PO BID 11/15/22 12/11/24 History Atorvastatin Calcium [Lipitor] 40 mg PO DAILY 11/15/22 12/11/24 History Insulin Aspart [NovoLOG Flexpen] See Protocol SQ TID-W/MEALS 11/15/22 12/11/24 History Montelukast Sodium [Singulair] 10 mg PO HS 11/15/22 12/11/24 History Ranolazine [Ranexa] 500 mg PO BID 11/28/23 12/11/24 History Isosorbide Mononitrate ER [Imdur] 60 mg PO DAILY 12/19/23 12/11/24 History traZODone HCL [Desyrel] 50 mg PO HS PRN #30 tab 12/20/23 12/11/24 Rx Insulin Degludec [Tresiba 44 units SQ DAILY 03/15/24 12/11/24 History Flextouch U-100 Pen] Fluticasone Propion/Salmeterol 1 puff INHALATION RT-BID PRN 06/06/24 12/11/24 History [Advair 100-50 Diskus] Insulin Aspart [NovoLOG Flexpen] 17 units SQ TID-W/MEALS 06/06/24 12/11/24 History Semaglutide [Ozempic] 0.25 mg SQ TH 06/06/24 12/11/24 History [place] Carbonate 300 mg PO BID 08/25/24 12/11/24 History clonazePAM [KlonoPIN] 0.5 mg PO BID 08/25/24 12/11/24 History dilTIAZem HCL [Tiazac] 180 mg PO HS 08/25/24 12/11/24 History ARIPiprazole [Abilify] 10 mg PO HS 12/11/24 12/11/24 History Magnesium Oxide [Magox 400] 400 mg PO DAILY 12/11/24 12/11/24 History Allergies Allergy/AdvReac Type Severity Reaction Status Date / Time adhesive Allergy red skin Verified 12/11/24 10:02 trimethobenzamide Allergy Rash/Hives Verified 12/11/24 10:02 [facility] vancomycin Allergy Rash/Hives Verified 12/11/24 10:02 Physical Exam Vitals: Vital Signs Temp Pulse Resp BP Pulse Ox 12/11/24 08:21 68 18 113/55 97 12/11/24 07:13 73 16 152/72 98 12/11/24 04:19 97.7 F 75 18 164/66 97 Intake and Output 12/10/24 12/11/24 12/11/24 22:59 06:59 14:59 Other: Weight 108.862 kg Results 12/11/24 06:39 12/11/24 08:14 Cardiac Enzymes 12/11/24 12/11/24 Range/Units 08:14 08:14 AST 541 H (14-36) U/L Troponin I <0.012 (0.000-0.034) ng/mL CBC 12/11/24 Range/Units 06:39 WBC 8.5 (3.8-10.6) k/uL RBC 4.95 (3.80-5.40) m/uL Hgb 14.8 (11.4-16.0) gm/dL Hct 43.9 (34.0-46.0) % Plt Count 242 (150-450) k/uL Comprehensive Metabolic Panel 12/11/24 Range/Units 08:14 Sodium 141 (137-145) mmol/L Potassium 4.5 (3.5-5.1) mmol/L Chloride 105 (98-107) mmol/L Carbon Dioxide 27 (22-30) mmol/L BUN 17 (7-17) mg/dL Creatinine 0.63 (0.52-1.04) mg/dL Glucose 95 (74-99) mg/dL Calcium 9.3 (8.4-10.2) mg/dL AST 541 H (14-36) U/L ALT 286 H (4-34) U/L Alkaline Phosphatase 137 H (38-126) U/L Total Protein 6.3 (6.3-8.2) g/dL Albumin 3.9 (3.5-5.0) g/dL Current Medications Generic Name Dose Route Start Last Admin Trade Name Freq PRN Reason Stop Dose Admin Sodium Chloride 1,000 mls @ 110 mls/hr 12/11/24 08:37 12/11/24 09:05 Saline 0.9% IV 12/11/24 17:42 110 mls/hr .Q9H6M STA Administration Morphine Sulfate 4 mg 12/11/24 08:58 Morphine Sulfate 4 Mg/Ml Syringe IV Q4HR PRN Severe Pain (Scale 7 to 10) Naloxone HCl 0.2 mg 12/11/24 08:58 Naloxone 0.4 Mg/Ml 1 Ml Vial IV Q2M PRN Opioid Reversal Nitroglycerin 0.4 mg 12/11/24 06:05 Nitroglycerin Sl Tabs 0.4 Mg Tab SUBLINGUAL Q5M PRN Chest Pain Intake and Output 12/10/24 12/11/24 12/11/24 22:59 06:59 14:59 Other: Weight 108.862 kg 12/11/24 06:39 12/11/24 08:14
--- NOTE | 2024-12-11 14:31 | P.CONS ---
History of Present Illness - Reason for Consult Consult date: 12/11/24 Pancreatitis Requesting physician: Babar Oden - Chief Complaint Left flank pain - History of Present Illness This a pleasant 54-year-old female with a history of nonalcoholic fatty liver disease, obesity, diabetes mellitus, recent urinary tract infection treated with Bactrim for 10 days just discontinued a week ago, asthma, TIA, DVT, fibromyalgia, GERD, hyperlipidemia, hypertension, [place] and pulmonary embolism. Patient had presented to the emergency department with complaints of left side pain that had radiated down into her leg making it difficult to walk. States that started yesterday afternoon around 2 PM. She does report some nausea, states that her head feels dizzy. She had elevated LFTs as well as lipase. [facility] was consulted for pancreatitis. Denies any history of pancreatitis. Has a history of cholecystectomy many years ago, again was recently on Bactrim discontinued about a week ago and is on Ozempic for her diabetes which she started 3 to 4 months ago. No imaging available at this time. Review of Systems REVIEW OF SYSTEMS: CARDIOPULMONARY: No chest pain or shortness of breath. Gastrointestinal: No reported abdominal pain, reports left side/flank pain. Nausea no vomiting. No hematemesis, coffee-ground emesis. No rectal bleeding, or melena. GENITOURINARY: No dysuria or hematuria. MUSCULOSKELETAL: Reports normal range of motion., Joint pain. SKIN: No rashes. No jaundice. ENDOCRINE: No chills, fevers. No excessive weight gain or loss. No polydipsia or polyuria. PSYCHIATRIC: Unremarkable. NEUROLOGY: No change in mental status. Denies dizziness, headache. ENT: Vision unremarkable. CONSTITUTIONAL: No recent weight loss. No fever, chills, night sweats. Past Medical History Past Medical History: Asthma, Chest Pain / Angina, CVA/TIA, Diabetes Mellitus, Deep Vein Thrombosis (DVT), Fibromyalgia, GERD/Reflux, Hyperlipidemia, Hypertension, Liver Disease, Myocardial Infarction ([place]), Pulmonary Embolus (PE) Additional Past Medical History / Comment(s): fibomyalgia, light weakness on left after stroke coming back. mild [place] from EKG unknown time. recent blood in stools. non alcoholic fatty liver,, diverticulosis. Last Myocardial Infarction Date:: unk History of Any Multi-Drug Resistant Organisms: C-DIFF Year Discovered:: 2019 MDRO Source:: stool Past Surgical History: Appendectomy, Cholecystectomy, Hysterectomy, Orthopedic Surgery, Tonsillectomy Additional Past Surgical History / Comment(s): left knee replaced. left rotator cuff repair . rt hip stretched bursa. colonoscopies, laproscopic surgery to remove abdominal adhesions, left femur sx Past Anesthesia/Blood Transfusion Reactions: Postoperative Nausea & Vomiting (PONV) Additional Past Anesthesia/Blood Transfusion Reaction / Comm: with lap procedure had a hard time waking up. Past Psychological History: Bipolar, Depression Smoking Status: Never smoker Past Alcohol Use History: Rare Past Drug Use History: Marijuana - Past Family History Mother Family Medical History: Cancer Additional Family Medical History / Comment(s): uterine Father Family Medical History: Cancer Additional Family Medical History / Comment(s): lung Medications and Allergies Home Medications Medication Instructions Recorded Confirmed Type Albuterol Sulfate [Albuterol 2 puff INHALATION RT-Q6H PRN 11/15/22 12/11/24 History Sulfate Hfa] Apixaban [Eliquis] 5 mg PO BID 11/15/22 12/11/24 History Atorvastatin Calcium [Lipitor] 40 mg PO DAILY 11/15/22 12/11/24 History Insulin Aspart [NovoLOG Flexpen] See Protocol SQ TID-W/MEALS 11/15/22 12/11/24 History Montelukast Sodium [Singulair] 10 mg PO HS 11/15/22 12/11/24 History Ranolazine [Ranexa] 500 mg PO BID 11/28/23 12/11/24 History Isosorbide Mononitrate ER [Imdur] 60 mg PO DAILY 12/19/23 12/11/24 History traZODone HCL [Desyrel] 50 mg PO HS PRN #30 tab 12/20/23 12/11/24 Rx Insulin Degludec [Tresiba 44 units SQ DAILY 03/15/24 12/11/24 History Flextouch U-100 Pen] Fluticasone Propion/Salmeterol 1 puff INHALATION RT-BID PRN 06/06/24 12/11/24 History [Advair 100-50 Diskus] Insulin Aspart [NovoLOG Flexpen] 17 units SQ TID-W/MEALS 06/06/24 12/11/24 History Semaglutide [Ozempic] 0.25 mg SQ TH 06/06/24 12/11/24 History [place] Carbonate 300 mg PO BID 08/25/24 12/11/24 History clonazePAM [KlonoPIN] 0.5 mg PO BID 08/25/24 12/11/24 History dilTIAZem HCL [Tiazac] 180 mg PO HS 08/25/24 12/11/24 History ARIPiprazole [Abilify] 10 mg PO HS 12/11/24 12/11/24 History Magnesium Oxide [Magox 400] 400 mg PO DAILY 12/11/24 12/11/24 History Allergies Allergy/AdvReac Type Severity Reaction Status Date / Time adhesive Allergy red skin Verified 12/11/24 10:02 trimethobenzamide Allergy Rash/Hives Verified 12/11/24 10:02 [From [place]] vancomycin Allergy Rash/Hives Verified 12/11/24 10:02 Physical Exam Vitals: Vital Signs Temp Pulse Resp BP Pulse Ox 12/11/24 08:21 68 18 113/55 97 12/11/24 07:13 73 16 152/72 98 12/11/24 04:19 97.7 F 75 18 164/66 97 Intake and Output 12/10/24 12/11/24 12/11/24 22:59 06:59 14:59 Other: Weight 108.862 kg General appearance: The patient is alert, oriented, appears in no acute distress. Obese. HET: Head is normocephalic and atraumatic. Conjunctiva pink. Sclera anicteric. Neck: Supple without lymphadenopathy. Trachea midline. Heart: Regular. Lungs: Equal expansion, normal respiratory effort. Abdomen: Soft, right upper quadrant, upper abdominal and left upper quadrant tenderness to palpation, nondistended. Skin: No rashes. No jaundice. Extremities: Normal skin color and turgor. No pedal edema. Neurological: No focal deficits. Alert and oriented x3. Results CBC & Chem 7: 12/11/24 06:39 12/11/24 08:14 Labs: Abnormal Lab Results - Last 24 Hours (Table) 12/11/24 12/11/24 Range/Units 05:05 08:14 AST 541 H (14-36) U/L ALT 286 H (4-34) U/L Alkaline Phosphatase 137 H (38-126) U/L Lipase 1068 H (23-300) U/L Urine Mucus Rare H (None) /hpf Assessment and Plan (1) Pancreatitis Narrative/Plan: 54-year-old female presenting with left sided flank pain radiating to her legs with findings of elevated lipase as well as AST and ALT. Total bilirubin 0.6 AST 541 ALT 286 alkaline phosphatase 137 lipase 1068. With elevated LFTs likely this is a biliary pancreatitis. Medication induced pancreatitis is a consideration as possible etiology as patient was on recent antibiotics for her urinary tract infection as well as on Ozempic. Will obtain CT abdomen and pelvis. Current Visit: Yes Status: Acute Code(s): K85.90 - ACUTE PANCREATITIS WITHOU T NECROSIS OR INFECTION, UNSP SNOMED Code(s): 34203010 (2) Flank pain Current Visit: Yes Status: Acute Code(s): R10.9 - UNSPECIFIED ABDOMINAL PAIN SNOMED Code(s): 755724356 (3) Diabetes mellitus Current Visit: Yes Status: Acute Code(s): E11.9 - TYPE 2 DIABETES MELLITUS WITHOUT COMPLICATIONS SNOMED Code(s): 51002543 Plan: 1. Continue symptomatic and supportive care 2. Clear liquid diet, patient instructed to's take small amounts 3. Daily CMP, lipase 4. Triglycerides ordered 5. Pain medication as needed per primary team 6. Antiemetics as needed 7. Protonix 40 mg daily for GI prophylaxis 8. CT abdomen pelvis ordered 9. Further recommendations forthcoming based on clinical course. Thank you for this consultation, we will continue to follow. Dr. Delaney Oglesby I agree with the dictator's note, documented as a scribe by Shania Rocha.
--- NOTE | 2024-12-11 14:39 | CT ---
EXAMINATION TYPE: CT abdomen pelvis w con DATE OF EXAM: 12/11/2024 2:29 PM COMPARISON: None. CLINICAL INDICATION: Female, 54 years old with history of Pancreatitis, abdominal pain, TECHNIQUE: Axial images were obtained from above the diaphragm to the pubic rami in the axial plane a t 5 mm thick sections. Reconstructed images are reviewed on the computer in the coronal plane. CONTRAST: mL of . Study performed DLP: mGycm, Automated exposure control for dose reduction was used. FINDINGS: Limited CT sections are obtained the lung bases. The lung bases are clear. CT ABDOMEN: Liver: Normal Spleen: Normal Pancreas: Normal. Correlate with laboratory results. No suspicious inflammatory changes or pseudocyst formation evident. No abscess formation evident Adrenal glands: The adrenal glands are normal. Gallbladder: Surgically absent Kidneys: No masses are evident. No hydronephrosis is present. No cysts are present. Delayed images were obtained through the kidneys, which remain unremarkable. Aorta: Vascular calcification is within the aorta. Inferior vena cava: Normal. CT PELVIS: Loops of bowel within the abdomen and pelvis are normal. There are loops of bowel which are incom pletely distended or lack oral contrast limiting their evaluation. Appendix: Appears to be surgically absent Urinary bladder: Normal. Genitourinary structures: Uterus is absent. Adnexa are normal Osseous structures: There is a sclerotic lesion along the anterior right ilium, image 68 series 201. Sclerotic areas within the left proximal pubic ramus, image 90. Findings were present previously and is stable IMPRESSION: 1. No suspicious radiographic changes to suggest pancreatitis. Correlate with laboratory results. [facility], Workstation: [id number], 12/11/2024 2:37 PM
[2024-12-11] MEDS: PANTOPRAZOLE 40 MG/10 ML VIAL IVP SCH (14:43)
[2024-12-11] MEDS: MORPHINE SULFATE 4 MG/ML SYRINGE IV PRN (14:52)
[2024-12-11] MEDS: SODIUM CHLORIDE 0.9% 1,000 ML IV SCH (14:56)
[2024-12-11 17:40] LABS: Glucose,Whole Blood 117 mg/dL (70-110)
[2024-12-11] MEDS: INSULIN ASPART (NovoLOG) 100 UNIT/ML VIAL SQ SCH (17:44)
[2024-12-11] MEDS: ONDANSETRON 4 MG/2 ML VIAL IVP PRN (18:10)
[2024-12-11] MEDS: MONTELUKAST 10 MG TAB PO SCH (20:35)
[2024-12-11] MEDS: RANOLAZINE 500 MG TAB.ER.12H PO SCH (20:35)
[2024-12-11] MEDS: ARIPiprazole 10 MG TAB PO SCH (20:51)
[2024-12-11] MEDS: DILTIAZEM CD 180 MG CAP.ER.24H PO SCH (21:10)
[2024-12-12 06:20] LABS: Glucose,Whole Blood 117 mg/dL (70-110)
[2024-12-12 08:56] LABS: Basophils # (A) 0.03 X 10*3/uL (0.00-0.10); Eosinophils # (A) 0.21 X 10*3/uL (0.04-0.35); Eosinophils % (A) 6.9 %; HCT 40.8 % (37.2-46.3); Immature Grans, Automated 0 %; Lymphocytes # (A) 0.95 X 10*3/uL (0.90-5.00); MCHC 31.9 g/dL (32.0-37.0); MCV 91.1 FL (80.0-97.0); Monocytes # (A) 0.22 X 10*3/uL (0.20-1.00); Monocytes % (A) 7.2 %; NRBC Per 100 WBC 0 X 10*3/uL (0.00-0.01); Neutrophils # (A) 1.65 X 10*3/uL (1.80-7.70); Neutrophils % (A) 53.9 %; Platelet Count 221 X 10*3/uL (140-440); RBC 4.48 X 10*6/uL (4.10-5.20); RDW 12.4 % (11.5-14.5); WBC 3.06 X 10*3/uL (4.50-10.00)
[2024-12-12 09:06] LABS: Lipase 45 U/L (14-63)
[2024-12-12] MEDS: ISOSORBIDE MONONITRATE ER 60 MG TAB.ER.24H PO SCH (09:08)
[2024-12-12 09:18] LABS: ALT 720 U/L (8-44); AST 532 U/L (13-35); Albumin 3.7 g/dL (3.8-4.9); Albumin/Globulin Ratio 2.06 Ratio (1.60-3.17); Alkaline Phosphatase 234 U/L (41-126); BUN/Creat Ratio 13.83 Ratio (12.00-20.00); Blood Urea Nitrogen 8.3 mg/dL (9.0-27.0); Calcium 8.8 mg/dL (8.7-10.3); Carbon Dioxide 26.1 mmol/L (21.6-31.8); Chloride 107 mmol/L (96-109); Globulin 1.8 g/dL (1.6-3.3); Glucose 136 mg/dL (70-110); Potassium 4.4 mmol/L (3.5-5.5); Sodium 141 mmol/L (135-145); Total Bilirubin 0.7 mg/dL (0.3-1.2); Total Protein 5.5 g/dL (6.2-8.2)
--- NOTE | 2024-12-12 10:49 | P.PN ---
Subjective This is a pleasant 54 years old female with past medical history of multiple medical problems as below Patient presents urgently because of left flank pain since yesterday at 2 PM. She rates her pain at rest 10/10 but now is better with the treatment, she describes it as a punch pain. She denies radiating to the back but states that it radiates down all the way to her foot left foot. No significant precipitating or relieving factors. The pain is not radiating to the back as per patient While she was in the emergency room she had a squeezing chest pain in the middle with no radiation that lasts for about 20 minutes. Currently she is chest pain- free. Denies dyspnea or coughing Patient states that she was just recently treated for bronchitis although she have not seen her lung doctor for a while Also she states recently she was treated for UTI x 10 days with Bactrim, she finished her antibiotic about a week earlier While in the emergency room also patient started having periumbilical abdominal pain started 2 hours earlier about 8/10 and achy She has chronic diarrhea, about 6 times per day She was able to eat a a lot today as the patient explains Patient is afebrile and blood pressure stable CBC, BMP and INR and troponin x 1 are negative Urinalysis is unremarkable Liver enzymes mildly elevated Lipase is 1068 EKG showing sinus rhythm at [address]-T changes Chest x-ray is negative for acute process 12/12 Patient chest pain has gone today. Her left flank pain also improved Her main complaint is her upper abdominal pain and mainly in the right upper quadrant, 7/10 associated with tenderness and some rebound tenderness but no significant guarding. Ruiz sign is negative. She vomited once this morning. She had very loose bowel movement this morning as well Her vitals are stable and she is afebrile. Lipase normal, liver enzymes trending up slightly. Also labs showing evidence of leukopenia and neutropenia today with WBC down to 3.0 and neutrophil count to 1.6. BMP is unremarkable. Bilirubin normal 0.7, AST went up to 532 and ALT up to 728. Alkaline phosphatase 234. Troponin x 2 are negative. Lipase normal at 45. CT of the abdomen and pelvis is negative for acute process. While loops of the bowel in the abdomen pelvis look normal. Liver looks normal. Patient states also she has history of bipolar and depression and asked her lithium and Klonopin to be resumed. She says she takes lithium for 6-month with no problem and Klonopin for more than a year at controlling her symptoms. Denies signs symptoms of active depression. No suicidal homicidal ideation, no hallucination or delusions. She remains on normal saline 75 mL/h and Protonix 40 mg IV daily Also she is continued on home dose of Cardizem. [place] is listed for her for home medication however with worsening liver enz ymes we will need to check her coagulation studies with INR and PTT prior to resuming anticoagulation. Also with evidence of leukopenia will want to check hepatitis panel which is ordered. Patient was updated with the lab results and management plan and she is agreeable Review of systems CONSTITUTIONAL: No fever, no malaise, no fatigue. HEENT: No recent visual problems or hearing problems. Denied any sore throat. CARDIOVASCULAR: No orthopnea, PND, no palpitations, no syncope. PULMONARY: No shortness of breath, no cough, no hemoptysis. GENITOURINARY: Denies any burning micturition, frequency, or urgency. MUSCULOSKELETAL/RHEUMATOLOGICAL: Denies any joint pain, swelling, or any muscle pain. ENDOCRINE: Denies any polyuria or polydipsia. Active Medications Generic Name Dose Route Start Last Admin Trade Name Freq PRN Reason Stop Dose Admin Albuterol Sulfate 2.5 mg 12/11/24 13:48 Albuterol Nebulized 2.5 Mg/3 Ml INHALATION RT-Q6H PRN Shortness Of Breath Clonazepam 0.5 mg 12/12/24 10:45 Clonazepam 0.5 Mg Tab PO BID FRANCISCO JAVIER Diltiazem HCl 180 mg 12/11/24 21:00 12/11/24 21:10 Diltiazem Cd 180 Mg Cap.Er.24h PO Not Given HS FRANCISCO JAVIER Sodium Chloride 1,000 mls @ 75 mls/hr 12/12/24 10:15 Saline 0.9% IV .[id number] FRANCISCO JAVIER Insulin Aspart 17 unit 12/11/24 17:30 12/12/24 09:03 Insulin Aspart (Novolog) 100 Unit/Ml Vial SQ 17 unit TID-W/MEALS FRANCISCO JAVIER Administration Iopamidol 30 ml 12/11/24 12:04 Iopamidol Contrast (Oral Use) Vial PO 12/12/24 12:[address] Scan Isosorbide Mononitrate 60 mg 12/12/24 09:00 12/12/24 09:08 Isosorbide Mononitrate Er 60 Mg Tab.Er.24h PO 60 mg DAILY FRANCISCO JAVIER Administration [place] Carbonate 300 mg 12/12/24 10:45 [place] Carbonate 300 Mg Cap PO BID FRANCISCO JAVIER Montelukast Sodium 10 mg 12/11/24 21:00 12/11/24 20:35 Montelukast 10 Mg Tab PO 10 mg HS FRANCISCO JAVIER Administration Morphine Sulfate 4 mg 12/11/24 08:58 12/12/24 09:02 Morphine Sulfate 4 Mg/Ml Syringe IV 4 mg Q4HR PRN Administration Severe Pain (Scale 7 to 10) Naloxone HCl 0.2 mg 12/11/24 08:58 Naloxone 0.4 Mg/Ml 1 Ml Vial IV Q2M PRN Opioid Reversal Nitroglycerin 0.4 mg 12/11/24 06:05 Nitroglycerin Sl Tabs 0.4 Mg Tab SUBLINGUAL Q5M PRN Chest Pain Ondansetron HCl 4 mg 12/11/24 12:08 12/11/24 18:10 Ondansetron 4 Mg/2 Ml Vial IVP 4 mg Q6HR PRN Administration Nausea And Vomiting Pantoprazole Sodium 40 mg 12/11/24 12:15 12/12/24 09:03 Pantoprazole 40 Mg/10 Ml Vial IVP 40 mg DAILY FRANCISCO JAVIER Administration Ranolazine 500 mg 12/11/24 21:00 12/12/24 09:08 Ranolazine 500 Mg Tab.Er.12h PO 500 mg BID FRANCISCO JAVIER Administration Trazodone HCl 50 mg 12/11/24 13:54 Trazodone Hcl 50 Mg Tab PO HS PRN Insomnia Objective - Vital Signs Vital signs: Vital Signs Temp 97.5 F L 12/12/24 07:00 Pulse 69 12/12/24 07:00 Resp 17 12/12/24 07:00 BP 160/78 12/12/24 07:00 Pulse Ox 99 12/12/24 07:00 FiO2 Intake & Output 12/11/24 12/12/24 12/12/24 18:59 06:59 18:59 Intake Total 118 Balance 118 Weight 108.862 kg Intake: Oral 118 Other: Voiding Method Toilet - Exam GENERAL: The patient is alert and oriented x3, not in any acute distress. Well developed, well nourished. HEENT: Pupils are round and equally reacting to light. EOMI. No scleral icterus. No conjunctival pallor. Normocephalic, atraumatic. No pharyngeal erythema. No thyromegaly. CARDIOVASCULAR: S1 and S2 present. No murmurs, rubs, or gallops. PULMONARY: Chest is clear to auscultation, no wheezing , no crackles. -ABDOMEN: Soft, RUQ tenderness, nondistended, normoactive bowel sounds. No palpable organomegaly. MUSCULOSKELETAL: No joint swelling or deformity. EXTREMITIES: No cyanosis, clubbing, or pedal edema. NEUROLOGICAL: Gross neurological examination did not reveal any focal deficits. SKIN: No rashes. no petechiae. - Labs CBC & Chem 7: 12/12/24 05:50 12/12/24 05:50 Labs: Abnormal Lab Results - Last 24 Hours (Table) 12/11/24 12/12/24 12/12/24 Range/Units 17:39 05:50 05:50 WBC 3.06 L (4.50-10.00) X 10*3/uL MCHC 31.9 L (32.0-37.0) g/dL Neutrophils # 1.65 L (1.80-7.70) X 10*3/uL BUN 8.3 L (9.0-27.0) mg/dL Glucose 136 H (70-110) mg/dL POC Glucose (mg/dL) 117 H (70-110) mg/dL AST 532 H (13-35) U/L ALT 720 H (8-44) U/L Alkaline Phosphatase 234 H (41-126) U/L Total Protein 5.5 L (6.2-8.2) g/dL Albumin 3.7 L (3.8-4.9) g/dL 12/12/24 Range/Units 06:20 WBC (4.50-10.00) X 10*3/uL MCHC (32.0-37.0) g/dL Neutrophils # (1.80-7.70) X 10*3/uL BUN (9.0-27.0) mg/dL Glucose (70-110) mg/dL POC Glucose (mg/dL) 117 H (70-110) mg/dL AST (13-35) U/L ALT (8-44) U/L Alkaline Phosphatase (41-126) U/L Total Protein (6.2-8.2) g/dL Albumin (3.8-4.9) g/dL Assessment and Plan Assessment: -Abdominal pain, mainly in the right upper quadrant most likely related to liver disease. -Elevated lipase suspicious for possible acute pancreatitis; CT showing no evidence of pancreatitis and lipase back to normal. Clinically patient does not, behave like acute pancreatitis -Transaminitis, rule out viral hepatitis infection -Transient chest pain of 20 minutes duration -Leukopenia -History of CVA/TIA -Diabetes mellitus -Hypertension -Hyperlipidemia -History of DVT and PE -Fibromyalgia -History of liver disease -Status post appendectomy and colectomy and hysterectomy -Bipolar and depression Plan: Continue liquid diet Continue with normal sinus 75 mL/h Check hepatitis panel Check INR and PTT if negative may resume anticoagulation Check lactic acid Continue with IV Protonix Monitor liver enzymes. Hold Lipitor CT of the abdomen pelvis reviewed GI service on the case Electrical Repairer following the patient. Labs and medication were reviewed.. Continue same treatment. Continue with symptomatic treatment. Resume home medication. Monitor labs and vitals. DVT and GI prophylaxis. Further recommendations as per clinical course of the patient DVT prophylaxis: On Eliquis at home, currently on hold. Continue with mechanical GI Prophylaxis: Ppi Prognosis is guarded
[2024-12-12] MEDS: SODIUM CHLORIDE 0.9% 1,000 ML IV SCH (11:26)
[2024-12-12 11:47] LABS: Glucose,Whole Blood 115 mg/dL (70-110)
[2024-12-12 12:04] LABS: INR 0.9 (<1.2); Partial Thromboplastin Time 26.7 sec (22.0-30.0); Prothrombin Time 10.3 sec (10.0-12.5)
[2024-12-12] MEDS: clonazePAM 0.5 MG TAB PO SCH (12:15)
[2024-12-12] MEDS: LITHIUM CARBONATE 300 MG CAP PO SCH (12:15)
[2024-12-12] MEDS: ENOXAPARIN 120 MG/0.8 ML SYRINGE SQ SCH (13:46)
--- NOTE | 2024-12-12 14:14 | P.PN ---
Subjective Progress Note Date: 12/12/24 Principal diagnosis: Pancreatitis This a pleasant 54-year-old female with a history of nonalcoholic fatty liver disease, obesity, diabetes mellitus, recent urinary tract infection treated with Bactrim for 10 days just discontinued a week ago, asthma, TIA, DVT, fibromyalgia, GERD, hyperlipidemia, hypertension, HI and pulmonary embolism. Patient had presented to the emergency department with complaints of left side pain that had radiated down into her leg making it difficult to walk. States that started yesterday afternoon around 2 PM. She does report some nausea, states that her head feels dizzy. She had elevated LFTs as well as lipase. [facility] was consulted for pancreatitis. Denies any history of pancreatitis. Has a history of cholecystectomy many years ago, again was recently on Bactrim discontinued about a week ago and is on Ozempic for her diabetes which she started 3 to 4 months ago. No imaging available at this time. 12/12/2024 Patient seen and examined as a follow-up. States that she still has abdominal pain now it is moving towards the middle and right side of her abdomen. No nausea or vomiting. She has been tolerating clear liquid diet. Asking for more to eat. She had a CT of the abdomen pelvis with no significant findings. No biliary dilation. No pancreatitis seen. Repeat lipase 45, triglycerides 97. Total bilirubin 0.7 AST 532 ALT 720 alkaline phosphatase 234 Objective - Vital Signs Vital signs: Vital Signs Temp 97.8 F 12/11/24 23:00 Pulse 65 12/11/24 23:00 Resp 18 12/11/24 23:00 BP 138/87 12/11/24 23:00 Pulse Ox 98 12/11/24 23:00 FiO2 Intake & Output 12/11/24 12/12/24 12/12/24 18:59 06:59 18:59 Weight 108.862 kg - Exam General appearance: The patient is alert, oriented, appears in no acute distress. HET: Head is normocephalic and atraumatic. Conjunctiva pink. Sclera anicteric. Neck: Supple without lymphadenopathy. Abdomen: Soft, abdominal tenderness across upper abdomen, nondistended. Extremities: Normal skin color and turgor. No pedal edema Skin: No rashes, no jaundice Neurological: No focal deficits. Alert and oriented. - Labs CBC & Chem 7: 12/12/24 05:50 12/12/24 05:50 Labs: Abnormal Lab Results - Last 24 Hours (Table) 12/11/24 12/12/24 Range/Units 17:39 06:20 POC Glucose (mg/dL) 117 H 117 H (70-110) mg/dL Assessment and Plan (1) Pancreatitis Narrative/Plan: 54-year-old female presenting with left sided flank pain radiating to her legs with findings of elevated lipase as well as AST and ALT. Total bilirubin 0.6 AST 541 ALT 286 alkaline phosphatase 137 lipase 1068. With elevated LFTs likely this is a biliary pancreatitis. CT abdomen and pelvis with no acute findings. Will obtain MRCP for further evaluation to evaluate for biliary etiology. Medication induced pancreatitis is a also consideration as possible etiology as patient was on recent antibiotics for her urinary tract infection as well as on Ozempic. Current Visit: Yes Status: Acute Code(s): K85.90 - ACUTE PANCREATITIS WITHOUT NECROSIS OR INFECTION, UNSP SNOMED Code(s): 84406293 (2) Flank pain Current Visit: Yes Status: Acute Code(s): R10.9 - UNSPECIFIED ABDOMINAL PAIN SNOMED Code(s): 891775943 (3) Diabetes mellitus Current Visit: Yes Status: Acute Code(s): E11.9 - TYPE 2 DIABETES MELLITUS WITHOUT COMPLICATIONS SNOMED Code(s): 42247792 Plan: 1. Continue symptomatic and supportive care 2. May advance to full liquid diet 3. Daily CMP 4. Triglycerides ordered 5. Pain medication as needed per primary team 6. Antiemetics as needed 7. Protonix 40 mg daily for GI prophylaxis 8. CT abdomen pelvis ordered and reviewed 9. MRCP ordered 10. Further recommendations forthcoming based on clinical course. Thank you for this consultation, we will continue to follow. Dr. Delaney Oglesby I agree with the dictator's note, documented as a scribe by Shania Rocha.
[2024-12-12 15:23] LABS: Hepatitis A Antibody IgM Nonreactive (Nonreactive); Hepatitis B Core IgM Nonreactive (Nonreactive); Hepatitis B Surface Antigen Nonreactive (Nonreactive); Hepatitis C IgG Antibody Nonreactive (Nonreactive)
[2024-12-12 16:40] LABS: Glucose,Whole Blood 133 mg/dL (70-110)
[2024-12-12 21:44] LABS: Glucose,Whole Blood 170 mg/dL (70-110)
[2024-12-13 03:37] LABS: Basophils % (A) 1 %; Eosinophils # (A) 0.4 k/uL (0-0.7); Eosinophils % (A) 7 %; HCT 38.4 % (34.0-46.0); Lymphocytes # (A) 1.4 k/uL (1.0-4.8); Lymphocytes % (A) 27 %; MCH 30.1 pg (25.0-35.0); MCHC 33.8 g/dL (31.0-37.0); MCV 89.1 fL (80.0-100.0); Mean Platelet Volume 7.2; Monocytes # (A) 0.3 k/uL (0-1.0); Monocytes % (A) 5 %; Neutrophils # (A) 3.1 k/uL (1.3-7.7); Neutrophils % (A) 60 %; Platelet Count 207 k/uL (150-450); RBC 4.31 m/uL (3.80-5.40); RDW 12.8 % (11.5-15.5); WBC 5.1 k/uL (3.8-10.6)
[2024-12-13 04:03] LABS: ALT 489 U/L (4-34); AST 129 U/L (14-36); African American GFR (CKD) >90 (>60 ml/min/1.73 sqM); Albumin 3.4 g/dL (3.5-5.0); Alkaline Phosphatase 175 U/L (38-126); Anion Gap 6 mmol/L; Bilirubin, Delta 0.1 mg/dL (0.0-0.2); Bilirubin,Unconjugated 0.6 mg/dL (0.0-1.1); Blood Urea Nitrogen 9 mg/dL (7-17); Calcium 9.2 mg/dL (8.4-10.2); Carbon Dioxide 30 mmol/L (22-30); Chloride 101 mmol/L (98-107); Glucose 163 mg/dL (74-99); Non-African American GFR(CKD) 79 (>60 ml/min/1.73 sqM); Sodium 137 mmol/L (137-145); Total Bilirubin 0.7 mg/dL (0.2-1.3); Total Protein 5.5 g/dL (6.3-8.2)
[2024-12-13 06:31] LABS: Glucose,Whole Blood 177 mg/dL (70-110)
[2024-12-13] MEDS: ARIPiprazole 10 MG TAB PO SCH (09:42)
[2024-12-13] MEDS: diazePAM 5 MG TAB PO STA (10:39)
[2024-12-13 12:04] LABS: Glucose,Whole Blood 66 mg/dL (70-110)
[2024-12-13 12:55] LABS: Glucose,Whole Blood 84 mg/dL (70-110)
--- NOTE | 2024-12-13 12:55 | MR ---
EXAMINATION TYPE: MR MRCP DATE OF EXAM: 12/13/2024 11:53 AM COMPARISON: 12/11/2024. CLINICAL INDICATION: Female, 54 years old with history of Abdominal pain, elevated LFTs, pancreatitis ; PHH, Abd pain, elevated LFTs, pancreatitis. TECHNIQUE: Multi planar, T2-weighted imaging with and without fat saturation and chemical shift imag ing was performed of the abdomen. Then, heavily T2 weighted imaging (half-Fourier acquisition single- shot turbo spin-echo) was utilized in order to study the biliary system. Maximum intensity projectio n images were reconstructed from the original data of the biliary tree. 3D images were created on a [employer] work station. No Gadolinium given. FINDINGS: Lower Thorax: No evidence for acute process. MRCP: * The intrahepatic ducts have a normal appearance. * The extrahepatic ducts have a normal appearance. * The common hepatic duct measures 6 mm in size. * The common bile duct at the level of the pancreatic head measures 4 mm in size. * The pancreatic duct is normal. * The gallbladder is surgically absent. Cystic duct remnant noted.. Abdomen: Liver: No evidence for hepatic steatosis or cirrhosis. Pancreas: No ductal dilation. No evidence for solid mass. Spleen: Normal for size. Adrenal glands: Unremarkable. Kidneys: No evidence for obstructive uropathy. No suspicious renal masses. Stomach and Bowel: No evidence for bowel wall thickening or evidence for obstruction. Retroperitoneum/Peritoneum: No evidence of pneumoperitoneum or free fluid. Vasculature: No aortic aneurysm. Musculoskeletal: The osseous structures appear intact. Lymph Nodes: No gross evidence for lymphadenopathy. Abdominal wall: Unremarkable. IMPRESSION: No evidence to suggest ductal stricture, choledocholithiasis, or biliary ductal dilatation. [facility], , 12/13/2024 12:52 PM
--- NOTE | 2024-12-13 13:34 | P.PN ---
Subjective Progress Note Date: 12/12/24 Principal diagnosis: Pancreatitis This a pleasant 54-year-old female with a history of nonalcoholic fatty liver disease, obesity, diabetes mellitus, recent urinary tract infection treated with Bactrim for 10 days just discontinued a week ago, asthma, TIA, DVT, fibromyalgia, GERD, hyperlipidemia, hypertension, [place] and pulmonary embolism. Patient had presented to the emergency department with complaints of left side pain that had radiated down into her leg making it difficult to walk. States that started yesterday afternoon around 2 PM. She does report some nausea, states that her head feels dizzy. She had elevated LFTs as well as lipase. [facility] was consulted for pancreatitis. Denies any history of pancreatitis. Has a history of cholecystectomy many years ago, again was recently on Bactrim discontinued about a week ago and is on Ozempic for her diabetes which she started 3 to 4 months ago. No imaging available at this time. 12/12/2024 Patient seen and examined as a follow-up. States that she still has abdominal pain now it is moving towards the middle and right side of her abdomen. No nausea or vomiting. She has been tolerating clear liquid diet. Asking for more to eat. She had a CT of the abdomen pelvis with no significant findings. No biliary dilation. No pancreatitis seen. Repeat lipase 45, triglycerides 97. Total bilirubin 0.7 AST 532 ALT 720 alkaline phosphatase 234 12/13/2024 Patient seen and examined today as a follow-up. LFTs continue to improve. Patient states abdominal pain not improving its across to her abdomen. She states now it feels like both of her lower extremities have numbness and tingling. She was scheduled for MRCP today which reports no evidence to suggest ductal stricture, choledocholithiasis or biliary ductal dilation. She denies any nausea or vomiting. Tolerating clear liquids. Objective - Vital Signs Vital signs: Vital Signs Temp 97.8 F 12/11/24 23:00 Pulse 65 12/11/24 23:00 Resp 18 12/11/24 23:00 BP 138/87 12/11/24 23:00 Pulse Ox 98 12/11/24 23:00 FiO2 Intake & Output 12/11/24 12/12/24 12/12/24 18:59 06:59 18:59 Weight 108.862 kg - Exam General appearance: The patient is alert, oriented, appears in no acute distress. HET: Head is normocephalic and atraumatic. Conjunctiva pink. Sclera anicteric. Neck: Supple without lymphadenopathy. Abdomen: Soft, ab diffuse abdominal tenderness, nondistended. Extremities: Normal skin color and turgor. No pedal edema Skin: No rashes, no jaundice Neurological: No focal deficits. Alert and oriented. - Labs CBC & Chem 7: 12/13/24 03:16 12/13/24 03:16 Labs: Abnormal Lab Results - Last 24 Hours (Table) 12/11/24 12/12/24 Range/Units 17:39 06:20 POC Glucose (mg/dL) 117 H 117 H (70-110) mg/dL Assessment and Plan (1) Pancreatitis Narrative/Plan: 54-year-old female presenting with left sided flank pain radiating to her legs with findings of elevated lipase as well as AST and ALT. Total bilirubin 0.6 AST 541 ALT 286 alkaline phosphatase 137 lipase 1068. With elevated LFTs likely this is a biliary pancreatitis. CT abdomen and pelvis with no acute findings. Lipase normal, LFTs trending down. May have been secondary to pancreatitis and BECKMAN as well as superimposed secondary to medication. MRCP shows no ductal stricture, choledocholithiasis or biliary ductal dilation. Unclear etiology of pancreatitis however seems to be resolving. Medication induced pancreatitis is a possible etiology as patient was on recent antibiotics for her urinary tract infection as well as on Ozempic. No further workup from gastroenterology. Current Visit: Yes Status: Acute Code(s): K85.90 - ACUTE PANCREATITIS WITHOUT NECROSIS OR INFECTION, UNSP SNOMED Code(s): 26401730 (2) Flank pain Current Visit: Yes Status: Acute Code(s): R10.9 - UNSPECIFIED ABDOMINAL PAIN SNOMED Code(s): 256283340 (3) Diabetes mellitus Current Visit: Yes Status: Acute Code(s): E11.9 - TYPE 2 DIABETES MELLITUS WITHOUT COMPLICATIONS SNOMED Code(s): 38166639 Plan: 1. Symptomatic and supportive care 2. Clear liquid diet, advance as tolerated 3. Repeat CMP tomorrow 4. MRCP ordered and reviewed with no evidence of ductal stricture, choledocholithiasis or biliary ductal dilation 5. Possible medication induced pancreatitis secondary to recent antibiotics or Ozempic 6. No further workup from gastroenterology Thank you for this consultation, we will continue to follow. Dr. Delaney Oglesby I agree with the dictator's note, documented as a scribe by Shania Rocha.
--- NOTE | 2024-12-13 14:25 | P.PN ---
Subjective Progress Note Date: 12/13/24 This is a pleasant 54 years old female with past medical history of multiple medical problems as below Patient presents urgently because of left flank pain since yesterday at 2 PM. She rates her pain at rest 10/10 but now is better with the treatment, she describes it as a punch pain. She denies radiating to the back but states that it radiates down all the way to her foot left foot. No significant p recipitating or relieving factors. The pain is not radiating to the back as per patient While she was in the emergency room she had a squeezing chest pain in the middle with no radiation that lasts for about 20 minutes. Currently she is chest pain- free. Denies dyspnea or coughing Patient states that she was just recently treated for bronchitis although she have not seen her lung doctor for a while Also she states recently she was treated for UTI x 10 days with Bactrim, she finished her antibiotic about a week earlier While in the emergency room also patient started having periumbilical abdominal pain started 2 hours earlier about 8/10 and achy She has chronic diarrhea, about 6 times per day She was able to eat a a lot today as the patient explains Patient is afebrile and blood pressure stable CBC, BMP and INR and troponin x 1 are negative Urinalysis is unremarkable Liver enzymes mildly elevated Lipase is 1068 EKG showing sinus rhythm at [address]-T changes Chest x-ray is negative for acute process 12/12 Patient chest pain has gone today. Her left flank pain also improved Her main complaint is her upper abdominal pain and mainly in the right upper quadrant, 7/10 associated with tenderness and some rebound tenderness but no significant guarding. Ruiz sign is negative. She vomited once this morning. She had very loose bowel movement this morning as well Her vitals are stable and she is afebrile. Lipase normal, liver enzymes trending up slightly. Also labs showing evidence of leukopenia and neutropenia today with WBC down to 3.0 and neutrophil count to 1.6. BMP is unremarkable. Bilirubin normal 0.7, AST went up to 532 and ALT up to 728. Alkaline phosphatase 234. Troponin x 2 are negative. Lipase normal at 45. CT of the abdomen and pelvis is negative for acute process. While loops of the bowel in the abdomen pelvis look normal. Liver looks normal. Patient states also she has history of bipolar and depression and asked her lithium and Klonopin to be resumed. She says she takes lithium for 6-month with no problem and Klonopin for more than a year at controlling her symptoms. Denies signs symptoms of active depression. No suicidal homicidal ideation, no hallucination or delusions. She remains on normal saline 75 mL/h and Protonix 40 mg IV daily Also she is continued on home dose of Cardizem. 12/13. Patient seen and examined. Blood work done showed WBC 5.1, hemoglobin 13, sodium 137, potassium 5, AST 129, ALT 489,. MRCP ordered. Still having abdominal pain REVIEW OF SYSTEMS: CONSTITUTIONAL: No fever, no malaise,. CARDIOVASCULAR: No chest pain, no palpitations, no syncope. PULMONARY: No shortness of breath, no cough, GASTROINTESTINAL: No diarrhea, no nausea, no vomiting NEUROLOGICAL: No headaches, no weakness, PHYSICAL EXAMINATION: GENERAL: The patient is alert and oriented x3, not in any acute distress. Well developed, well nourished. HEENT: Pupils are round and equally reacting to light. EOMI. No scleral icterus. No conjunctival pallor. Normocephalic, atraumatic. No pharyngeal erythema. No thyromegaly. CARDIOVASCULAR: S1 and S2 present. No murmurs, rubs, or gallops. PULMONARY: Chest is clear to auscultation, no wheezing or crackles. ABDOMEN: Soft, nontender, nondistended, normoactive bowel sounds. No palpable organomegaly. MUSCULOSKELETAL: No joint swelling or deformity. EXTREMITIES: No cyanosis, clubbing, or pedal edema. NEUROLOGICAL: Gross neurological examination did not reveal any focal deficits. SKIN: No rashes. Assessment and plan -Abdominal pain, mainly in the right upper quadrant most likely related to liver disease. -Elevated lipase suspicious for possible acute pancreatitis; CT showing no evidence of pancreatitis and lipase back to normal. Clinically patient does no t, behave like acute pancreatitis -Transaminitis, rule out viral hepatitis infection -Transient chest pain of 20 minutes duration -Leukopenia -History of CVA/TIA -Diabetes mellitus -Hypertension -Hyperlipidemia -History of DVT and PE -Fibromyalgia -History of liver disease -Status post appendectomy and colectomy and hysterectomy -Bipolar and depression Monitor vital signs Monitor CBC Monitor CMP Continue liquid diet Continue with normal sinus 75 mL/h Continue with IV Protonix Monitor liver enzymes. Hold Lipitor CT of the abdomen pelvis reviewed MRCP ordered GI service on the case Labs and medication were reviewed.. Continue same treatment. Continue with symptomatic treatment. Resume home medication. Monitor labs and vitals. DVT and GI prophylaxis. Further recommendations as per clinical course of the patient Dictation was produced using [employer] dictation software. please excuse any grammatical, word or spelling errors. Objective - Vital Signs Vital signs: Vital Signs Temp 98.2 F 12/13/24 07:44 Pulse 82 12/13/24 07:44 Resp 18 12/13/24 07:44 BP 131/79 12/13/24 07:44 Pulse Ox 97 12/13/24 07:44 FiO2 Intake & Output 12/12/24 12/13/24 12/13/24 18:59 06:59 18:59 Intake Total 118 520 Balance 118 520 Weight 108.862 kg Intake: Oral 118 520 Other: Voiding Method Toilet Toilet # Voids 5 1 - Labs CBC & Chem 7: 12/13/24 03:16 12/13/24 03:16 Labs: Abnormal Lab Results - Last 24 Hours (Table) 12/12/24 12/12/24 12/12/24 Range/Units 11:12 11:46 16:39 Glucose (74-99) mg/dL POC Glucose (mg/dL) 115 H 133 H (70-110) mg/dL Plasma Lactic Acid Rivera 2.1 H* (0.7-2.0) mmol/L AST (14-36) U/L ALT (4-34) U/L Alkaline Phosphatase (38-126) U/L Total Protein (6.3-8.2) g/dL Albumin (3.5-5.0) g/dL 12/12/24 12/13/24 12/13/24 Range/Units 21:41 03:16 06:30 Glucose 163 H (74-99) mg/dL POC Glucose (mg/dL) 170 H 177 H (70-110) mg/dL Plasma Lactic Acid Rivera (0.7-2.0) mmol/L AST 129 H (14-36) U/L ALT 489 H (4-34) U/L Alkaline Phosphatase 175 H (38-126) U/L Total Protein 5.5 L (6.3-8.2) g/dL Albumin 3.4 L (3.5-5.0) g/dL
[2024-12-13 17:37] LABS: Glucose,Whole Blood 138 mg/dL (70-110)
[2024-12-13 20:06] LABS: Glucose,Whole Blood 141 mg/dL (70-110)
[2024-12-14 07:47] VITALS: BP 127/76; PULSE 73; RESP 16; TEMP 98
[2024-12-14 07:51] LABS: Glucose,Whole Blood 162 mg/dL (70-110)
[2024-12-14 08:34] LABS: ALT 296 U/L (8-44); AST 45 U/L (13-35); Albumin 3.7 g/dL (3.8-4.9); Albumin/Globulin Ratio 2.18 Ratio (1.60-3.17); Alkaline Phosphatase 178 U/L (41-126); BUN/Creat Ratio 7.25 Ratio (12.00-20.00); Blood Urea Nitrogen 5.8 mg/dL (9.0-27.0); Calcium 8.8 mg/dL (8.7-10.3); Carbon Dioxide 29.9 mmol/L (21.6-31.8); Chloride 103 mmol/L (96-109); Globulin 1.7 g/dL (1.6-3.3); Glucose 164 mg/dL (70-110); Potassium 4.3 mmol/L (3.5-5.5); Sodium 139 mmol/L (135-145); Total Bilirubin 0.5 mg/dL (0.3-1.2); Total Protein 5.4 g/dL (6.2-8.2)
[2024-12-14 08:38] LABS: Basophils # (A) 0.05 X 10*3/uL (0.00-0.10); Basophils % (A) 1.1 %; Eosinophils # (A) 0.26 X 10*3/uL (0.04-0.35); Eosinophils % (A) 5.7 %; HCT 39.1 % (37.2-46.3); HGB 12.6 g/dL (12.0-15.0); Lymphocytes # (A) 1.33 X 10*3/uL (0.90-5.00); Lymphocytes % (A) 29.3 %; MCH 28.8 pg (27.0-32.0); MCHC 32.2 g/dL (32.0-37.0); MCV 89.3 FL (80.0-97.0); Mean Platelet Volume 9.5 FL (9.5-12.2); Monocytes # (A) 0.31 X 10*3/uL (0.20-1.00); Monocytes % (A) 6.8 %; NRBC Per 100 WBC 0 X 10*3/uL (0.00-0.01); Neutrophils # (A) 2.58 X 10*3/uL (1.80-7.70); Neutrophils % (A) 56.9 %; Platelet Count 220 X 10*3/uL (140-440); RBC 4.38 X 10*6/uL (4.10-5.20); RDW 12.3 % (11.5-14.5); WBC 4.54 X 10*3/uL (4.50-10.00)
--- NOTE | 2024-12-14 10:11 | P.PN ---
Subjective Progress Note Date: 12/14/24 Principal diagnosis: Pancreatitis This a pleasant 54-year-old female with a history of nonalcoholic fatty liver disease, obesity, diabetes mellitus, recent urinary tract infection treated with Bactrim for 10 days just discontinued a week ago, asthma, TIA, DVT, fibromyalgia, GERD, hyperlipidemia, hypertension, [place] and pulmonary embolism. Patient had presented to the emergency department with complaints of left side pain that had radiated down into her leg making it difficult to walk. States that started yesterday afternoon around 2 PM. She does report some nausea, states that her head feels dizzy. She had elevated LFTs as well as lipase. [facility] was consulted for pancreatitis. Denies any history of pancreatitis. Has a history of cholecystectomy many years ago, again was recently on Bactrim discontinued about a week ago and is on Ozempic for her diabetes which she started 3 to 4 months ago. No imaging available at this time. 12/12/2024 Patient seen and examined as a follow-up. States that she still has abdominal pain now it is moving towards the middle and right side of her abdomen. No nausea or vomiting. She has been tolerating clear liquid diet. Asking for more to eat. She had a CT of the abdomen pelvis with no significant findings. No biliary dilation. No pancreatitis seen. Repeat lipase 45, triglycerides 97. Total bilirubin 0.7 AST 532 ALT 720 alkaline phosphatase 234 12/13/2024 Patient seen and examined today as a follow-up. LFTs continue to improve. Patient states abdominal pain not improving its across to her abdomen. She states now it feels like both of her lower extremities have numbness and tingling. She was scheduled for MRCP today which reports no evidence to suggest ductal stricture, choledocholithiasis or biliary ductal dilation. She denies any nausea or vomiting. Tolerating clear liquids. 12/14/2024 Patient seen and examined today as a follow-up. States abdominal pain improving. She tolerated a full liquid diet and is asking for solids. MRCP was negative for any ductal stricture, choledochal lithiasis or biliary ductal dilation. LFTs continue to trend down. Today total bilirubin 0.5 AST 45 ALT 296 alkaline phosphatase 178 Objective - Vital Signs Vital signs: Vital Signs Temp 98.6 F 12/14/24 02:05 Pulse 76 12/14/24 02:05 Resp 18 12/14/24 02:05 BP 142/83 12/14/24 02:05 Pulse Ox 94 L 12/14/24 02:05 FiO2 Intake & Output 12/13/24 12/13/24 12/14/24 06:59 18:59 06:59 Intake Total 520 386 Balance 520 386 Weight 108.862 kg Intake: Intake, IV Titration 150 Amount Sodium Chloride 0.9% 1, 150 000 ml @ 75 mls/hr IV . [id number] FRANCISCO JAVIER Rx#:[id number] Oral 520 236 Other: Voiding Method Toilet Toilet Toilet # Voids 1 2 - Exam General appearance: The patient is alert, oriented, appears in no acute distress. HET: Head is normocephalic and atraumatic. Conjunctiva pink. Sclera anicteric. Neck: Supple without lymphadenopathy. Abdomen: Soft, mild abdominal tenderness, nondistended. Extremities: Normal skin color and turgor. No pedal edema Skin: No rashes, no jaundice Neurological: No focal deficits. Alert and oriented. - Labs CBC & Chem 7: 12/14/24 05:47 12/14/24 05:47 Labs: Abnormal Lab Results - Last 24 Hours (Table) 12/13/24 12/13/24 12/13/24 Range/Units 12:03 17:35 20:01 POC Glucose (mg/dL) 66 L 138 H 141 H (70-110) mg/dL Assessment and Plan (1) Pancreatitis Narrative/Plan: 54-year-old female presenting with left sided flank pain radiating to her legs with findings of elevated lipase as well as AST and ALT. Total bilirubin 0.6 AST 541 ALT 286 alkaline phosphatase 137 lipase 1068. With elevated LFTs likely this is a biliary pancreatitis. CT abdomen and pelvis with no acute findings. Lipase normal, LFTs trending down. May have been secondary to pancreatitis and BECKMAN as well as superimposed secondary to medication. MRCP shows no ductal stricture, choledocholithiasis or biliary ductal dilation. Unclear etiology of pancreatitis however seems to be resolving. Medication induced pancreatitis is a possible etiology as patient was on recent antibiotics for her urinary tract infection as well as on Ozempic. No further workup from gastroenterology. Current Visit: Yes Status: Acute Code(s): K85.90 - ACUTE PANCREATITIS WITHOUT NECROSIS OR INFECTION, UNSP SNOMED Code(s): 08330260 (2) Elevated LFTs Narrative/Plan: Unclear etiology of LFTs, patient does have a history of nonalcoholic fatty liver disease. May be superimposed secondary to medication and/or pancreatitis. Recommend outpatient follow-up for repeat labs in 1 to 2 weeks. Current Visit: Yes Status: Acute Code(s): R79.89 - OTHER SPECIFIED ABNORMAL FINDINGS OF BLOOD CHEMISTRY SNOMED Code(s): 068691766 (3) Flank pain Current Visit: Yes Status: Acute Code(s): R10.9 - UNSPECIFIED ABDOMINAL PAIN SNOMED Code(s): 003597358 (4) Diabetes mellitus Current Visit: Yes Status: Acute Code(s): E11.9 - TYPE 2 DIABETES MELLITUS WITHOUT COMPLICATIONS SNOMED Code(s): 82431224 Plan: 1. Continue symptomatic and supportive care 2. Advance to consistent carbohydrate diet 3. No further workup recommended from gastroenterology at this time 4. Recommend outpatient follow-up with gastroenterology in 1 to 2 weeks to repeat LFTs Thank you for this consultation, patient is cleared from gastroenterology. We will sign off at this time. Dr. Delaney Oglesby I agree with the dictator's note, documented as a scribe by Shania Rocha.
[2024-12-14 11:42] LABS: Glucose,Whole Blood 129 mg/dL (70-110)
--- NOTE | 2024-12-14 14:44 | P.DS ---
Providers Date of admission: 12/11/24 09:34 Expected date of discharge: 12/14/24 Attending physician: Velvet Henderson Consults: 12/11/24 08:58 Consult Physician Routine Consulting Provider: Darryn Ha Consult Reason/Comments: chest pain Do you want consulting provider notified?: Yes Consult Physician Routine Consulting Provider: Linda Oglesby Consult Reason/Comments: pancreatitis Do you want consulting provider notified?: Yes Primary care physician: Brayden Valdovinos Hospital Course: Discharge diagnoses; -Abdominal pain -Elevated lipase suspicious for possible acute pancreatitis -Transaminitis, rule out viral hepatitis infection -Leukopenia -History of CVA/TIA -Diabetes mellitus -Hypertension -Hyperlipidemia -History of DVT and PE -Fibromyalgia -History of liver disease -Status post appendectomy and colectomy and hysterectomy -Bipolar and depression Hospital course; This is a pleasant 54 years old female with past medical history of multiple medical problems as below Patient presents urgently because of left flank pain since yesterday at 2 PM. She rates her pain at rest 10/10 but now is better with the treatment, she describes it as a punch pain. She denies radiating to the back but states that it radiates down all the way to her foot left foot. No significant precipitating or relieving factors. The pain is not radiating to the back as per patient While she was in the emergency room she had a squeezing chest pain in the middle with no radiation that lasts for about 20 minutes. Currently she is chest pain- free. Denies dyspnea or coughing Patient states that she was just recently treated for bronchitis although she have not seen her lung doctor for a while Also she states recently she was treated for UTI x 10 days with Bactrim, she finished her antibiotic about a week earlier While in the emergency room also patient started having periumbilical abdominal pain started 2 hours earlier about 8/10 and achy She has chronic diarrhea, about 6 times per day She was able to eat a a lot today as the patient explains Patient is afebrile and blood pressure stable CBC, BMP and INR and troponin x 1 are negative Urinalysis is unremarkable Liver enzymes mildly elevated Lipase is 1068 EKG showing sinus rhythm at [address]-T changes Chest x-ray is negative for acute process 12/12 Patient chest pain has gone today. Her left flank pain also improved Her main complaint is her upper abdominal pain and mainly in the right upper quadrant, 7/10 associated with tenderness and some rebound tenderness but no significant guarding. Ruiz sign is negative. She vomited once this morning. She had very loose bowel movement this morning as well Her vitals are stable and she is afebrile. Lipase normal, liver enzymes trending up slightly. Also labs showing evidence of leukopenia and neutropenia today with WBC down to 3.0 and neutrophil count to 1.6. BMP is unremarkable. Bilirubin normal 0.7, AST went up to 532 and ALT up to 728. Alkaline phosphatase 234. Troponin x 2 are negative. Lipase normal at 45. CT of the abdomen and pelvis is negative for acute process. While loops of the bowel in the abdomen pelvis look normal. Liver looks normal. Patient states also she has history of bipolar and depression and asked her lithium and Klonopin to be resumed. She says she takes lithium for 6-month with no problem and Klonopin for more than a year at controlling her symptoms. Denies signs symptoms of active depression. No suicidal homicidal ideation, no hallucination or delusions. She remains on normal saline 75 mL/h and Protonix 40 mg IV daily Also she is continued on home dose of Cardizem. 12/13. Patient seen and examined. Blood work done showed WBC 5.1, hemoglobin 13, sodium 137, potassium 5, AST 129, ALT 489,. MRCP ordered. Still having abdominal pain 12/14. Patient seen and examined. LFTs are trending down. MRCP was negative for any biliary pathology. GI cleared the patient for discharge. PHYSICAL EXAMINATION: GENERAL: The patient is alert and oriented x3, not in any acute distress. Well developed, well nourished. HEENT: Pupils are round and equally reacting to light. EOMI. No scleral icterus. No conjunctival pallor. Normocephalic, atraumatic. No pharyngeal erythema. No thyromegaly. CARDIOVASCULAR: S1 and S2 present. No murmurs, rubs, or gallops. PULMONARY: Chest is clear to auscultation, no wheezing or crackles. ABDOMEN: Soft, nontender, nondistended, normoactive bowel sounds. No palpable organomegaly. MUSCULOSKELETAL: No joint swelling or deformity. EXTREMITIES: No cyanosis, clubbing, or pedal edema. NEUROLOGICAL: Gross neurological examination did not reveal any focal deficits. SKIN: No rashes. Dictation was produced using [employer] dictation software. please excuse any gramma tical, word or spelling errors. Patient Condition at Discharge: Fair Plan - Discharge Summary Discharge Rx Participant: Yes New Discharge Prescriptions: Continue Montelukast Sodium [Singulair] 10 mg PO HS Albuterol Sulfate [Albuterol Sulfate Hfa] 2 puff INHALATION RT-Q6H PRN PRN Reason: Shortness Of Breath Ranolazine [Ranexa] 500 mg PO BID Isosorbide Mononitrate ER [Imdur] 60 mg PO DAILY traZODone HCL [Desyrel] 50 mg PO HS PRN #30 tab PRN Reason: Insomnia Semaglutide [Ozempic] 0.25 mg SQ TH Fluticasone Propion/Salmeterol [Advair 100-50 Diskus] 1 puff INHALATION RT- BID PRN PRN Reason: Shortness Of Breath clonazePAM [KlonoPIN] 0.5 mg PO BID dilTIAZem HCL [Tiazac] 180 mg PO HS ARIPiprazole [Abilify] 10 mg PO HS Magnesium Oxide [Magox 400] 400 mg PO DAILY Insulin Aspart [NovoLOG Flexpen] See Protocol SQ TID-W/MEALS Apixaban [Eliquis] 5 mg PO BID Insulin Degludec [Tresiba Flextouch U-100 Pen] 44 units SQ DAILY Insulin Aspart [NovoLOG Flexpen] 17 units SQ TID-W/MEALS [place] Carbonate 300 mg PO BID Discontinued Atorvastatin Calcium [Lipitor] 40 mg PO DAILY Discharge Medication List Albuterol Sulfate [Albuterol Sulfate Hfa] 2 puff INHALATION RT-Q6H PRN 11/15/22 [History] Apixaban [Eliquis] 5 mg PO BID 11/15/22 [History] Insulin Aspart [NovoLOG Flexpen] See Protocol SQ TID-W/MEALS 11/15/22 [History] Montelukast Sodium [Singulair] 10 mg PO HS 11/15/22 [History] Ranolazine [Ranexa] 500 mg PO BID 11/28/23 [History] Isosorbide Mononitrate ER [Imdur] 60 mg PO DAILY 12/19/23 [History] traZODone HCL [Desyrel] 50 mg PO HS PRN #30 tab 12/20/23 [Rx] Insulin Degludec [Tresiba Flextouch U-100 Pen] 44 units SQ DAILY 03/15/24 [History] Fluticasone Propion/Salmeterol [Advair 100-50 Diskus] 1 puff INHALATION RT-BID PRN 06/06/24 [History] Insulin Aspart [NovoLOG Flexpen] 17 units SQ TID-W/MEALS 06/06/24 [History] Semaglutide [Ozempic] 0.25 mg SQ TH 06/06/24 [History] [place] Carbonate 300 mg PO BID 08/25/24 [History] clonazePAM [KlonoPIN] 0.5 mg PO BID 08/25/24 [History] dilTIAZem HCL [Tiazac] 180 mg PO HS 08/25/24 [History] ARIPiprazole [Abilify] 10 mg PO HS 12/11/24 [History] Magnesium Oxide [Magox 400] 400 mg PO DAILY 12/11/24 [History] Follow up Appointment(s)/Referral(s): Marichuy Issa, NOHEMY [REFERRING] - 1 Week (Gastroenterology follow-up for pancreatitis, unclear etiology. Elevated LFTs with history of BECKMAN) Linda Oglesby MD [STAFF PHYSICIAN] - 1 Week Brayden Valdovinos DO [Primary Care Provider] - 1-2 days Patient Instructions/Handouts: Pancreatitis (DC) Discharge Disposition: HOME SELF-CARE
== END 2024-12-14 13:30 | disposition home or self-care (01) ==
LOC: EC 04:18 → 6NMEDSUR 09:34 → 1SOBS 22:17 → 6NMEDSUR 12-13 13:04
PROVIDERS: ADMIT Hospitalist; ATTEND Hospitalist
DX: R10.9 Unspecified abdominal pain (principal); R74.01 Elevation of levels of liver transaminase levels; K85.90 Acute pancreatitis without necrosis or infection, unspecified; D70.9 Neutropenia, unspecified; R07.89 Other chest pain; E11.9 Type 2 diabetes mellitus without complications; I10 Essential (primary) hypertension; E78.5 Hyperlipidemia, unspecified; M79.7 Fibromyalgia; F32.A Depression, unspecified; E66.9 Obesity, unspecified; I25.2 Old myocardial infarction; I48.0 Paroxysmal atrial fibrillation; J45.909 Unspecified asthma, uncomplicated; K52.9 Noninfective gastroenteritis and colitis, unspecified; K76.0 Fatty (change of) liver, not elsewhere classified; Z86.718 Personal history of other venous thrombosis and embolism; Z86.711 Personal history of pulmonary embolism; Z82.49 Family history of ischemic heart disease and other diseases of the circulatory system; Z90.49 Acquired absence of other specified parts of digestive tract; Z86.73 Personal history of transient ischemic attack (TIA), and cerebral infarction without residual deficits; Z79.01 Long term (current) use of anticoagulants; Z79.4 Long term (current) use of insulin; Z79.899 Other long term (current) drug therapy; Z90.710 Acquired absence of both cervix and uterus; Z88.1 Allergy status to other antibiotic agents; Z88.8 Allergy status to other drugs, medicaments and biological substances
CPT/HCPCS: 96376 ×4; 96361; 96372; 96374; 96375; 99285; 36415; 80053 ×3; 80048; 80076; 80074; 83605 ×2; 83690 ×2; 84478; 84484; 85025 ×4; 85610; 85730; 81003; 71046; 74177; 74181; G0378 ×4; J2270 ×4; J2405 ×4; Q9967; J2470 ×4

== ENCOUNTER 2025-01-21 15:58 | Emergency (ER) | payer MEDICARE ==
--- NOTE | 2025-01-21 16:30 | ED ---
General Adult HPI - General Source: patient, RN notes reviewed <Kailyn Esteves - Last Filed: 01/21/25 16:29> - General Source: patient, RN notes reviewed <Naomi Guerrero - Last Filed: 01/21/25 18:08> - General Stated complaint: L leg pain Time Seen by Provider: 01/21/25 16:10 - History of Present Illness Initial comments: Quick [id number] female presenting to emergency department for complaint of left leg pain that started this morning. She states that she does have a history of DVT and PE and is currently on Eliquis. She denies redness or swelling of the left lower extremity however states the pain feels similar to when she has had a DVT in the past. Denies recent falls or injuries. (Kailyn Esteves) 54-year-old female presenting to the emergency department for complaint of left lower leg pain that started this morning. Denies injury or trauma. States she has a history of DVT and reports symptoms feel similar. She is currently on Eliquis. Denies redness or swelling of the left lower extremity. (Naomi Guerrero) - Related Data Home Medications Medication Instructions Recorded Confirmed Albuterol Sulfate [Albuterol 2 puff INHALATION RT-Q6H PRN 11/15/22 12/11/24 Sulfate Hfa] Apixaban [Eliquis] 5 mg PO BID 11/15/22 12/11/24 Insulin Aspart [NovoLOG Flexpen] See Protocol SQ TID-W/MEALS 11/15/22 12/11/24 Montelukast Sodium [Singulair] 10 mg PO HS 11/15/22 12/11/24 Ranolazine [Ranexa] 500 mg PO BID 11/28/23 12/11/24 Isosorbide Mononitrate ER [Imdur] 60 mg PO DAILY 12/19/23 12/11/24 Insulin Degludec [Tresiba 44 units SQ DAILY 03/15/24 12/11/24 Flextouch U-100 Pen] Fluticasone Propion/Salmeterol 1 puff INHALATION RT-BID PRN 06/06/24 12/11/24 [Advair 100-50 Diskus] Insulin Aspart [NovoLOG Flexpen] 17 units SQ TID-W/MEALS 06/06/24 12/11/24 Semaglutide [Ozempic] 0.25 mg SQ TH 06/06/24 12/11/24 [place] Carbonate 300 mg PO BID 08/25/24 12/11/24 clonazePAM [KlonoPIN] 0.5 mg PO BID 08/25/24 12/11/24 dilTIAZem HCL [Tiazac] 180 mg PO HS 08/25/24 12/11/24 ARIPiprazole [Abilify] 10 mg PO HS 12/11/24 12/11/24 Magnesium Oxide [Magox 400] 400 mg PO DAILY 12/11/24 12/11/24 Previous Rx's Medication Instructions Recorded traZODone HCL [Desyrel] 50 mg PO HS PRN #30 tab 12/20/23 Allergies Allergy/AdvReac Type Severity Reaction Status Date / Time adhesive Allergy red skin Verified 01/21/25 16:35 trimethobenzamide Allergy Rash/Hives Verified 01/21/25 16:35 [From [place]] vancomycin Allergy Rash/Hives Verified 01/21/25 16:35 Review of Systems ROS Other: All systems not noted in ROS Statement are negative. <Kailyn Esteves - Last Filed: 01/21/25 16:29> ROS Other: All systems not noted in ROS Statement are negative. <Naomi Guerrero - Last Filed: 01/21/25 18:08> ROS Statement: Those systems with pertinent positive or pertinent negative responses have been documented in the HPI. Past Medical History Past Medical History: Asthma, Chest Pain / Angina, CVA/TIA, Diabetes Mellitus, Deep Vein Thrombosis (DVT), Fibromyalgia, GERD/Reflux, Hyperlipidemia, Hypertension, Liver Disease, Myocardial Infarction (MS), Pulmonary Embolus (PE) Additional Past Medical History / Comment(s): fibomyalgia, light weakness on left after stroke coming back. mild MS from EKG unknown time. blood in stools. non alcoholic fatty liver,, diverticulosis. Last Myocardial Infarction Date:: unk History of Any Multi-Drug Resistant Organisms: C-DIFF Date of last positivie culture/infection: 2019 MDRO Source:: stool Past Surgical History: Appendectomy, Cholecystectomy, Hysterectomy, Orthopedic Surgery, Tonsillectomy Additional Past Surgical History / Comment(s): left knee replaced. left rotator cuff repair . rt hip stretched bursa. colonoscopies, laproscopic surgery to remove abdominal adhesions, left femur sx Past Anesthesia/Blood Transfusion Reactions: Postoperative Nausea & Vomiting (PONV) Additional Past Anesthesia/Blood Transfusion Reaction / Comment(s): with lap procedure had a hard time waking up. Smoking Status: Never smoker - Past Family History Mother Family Medical History: Cancer Additional Family Medical History / Comment(s): uterine Father Family Medical History: Cancer Additional Family Medical History / Comment(s): lung <Kailyn Esteves - Last Filed: 01/21/25 16:29> General Exam <Kailyn Esteves - Last Filed: 01/21/25 16:29> General appearance: alert, in no apparent distress Head exam: Present: atraumatic, normocephalic, normal inspection Left Knee exam: Present: normal inspection, full ROM. Absent: tenderness, swelling Lower Leg exam: Present: normal inspection, full ROM, tenderness (Mild diffuse tenderness on anterior aspect of left lower leg). Absent: swelling, abrasion, deformity, erythema, palpable cord, Homans' sign Ankle exam: Present: normal inspection, full ROM. Absent: tenderness, swelling Foot/Toe exam: Present: normal inspection, full ROM. Absent: tenderness, swelling Neurovascular tendon exam: Present: no vascular compromise. Absent: pulse deficit, abnormal cap refill, sensory deficit Neurological exam: Present: alert, oriented X3 Psychiatric exam: Present: normal affect, normal mood Skin exam: Present: warm, dry, intact, normal color. Absent: rash <Naomi Guerrero - Last Filed: 01/21/25 18:08> - General Exam Comments Initial Comments: Visual Physical Exam Vital signs reviewed General: Well-appearing, nontoxic, no acute distress. Head: Normocephalic, atraumatic Eyes: PERRLA, EOMI ENT: Airway patent Chest: Nonlabored breathing Skin: No visual rash, normal skin tone Neuro: Alert and oriented 3 Musculoskeletal: No gross abnormalities (Kailyn Esteves) Course Vital Signs 01/21/25 16:32 Temperature 98.5 F Pulse Rate 102 H Respiratory 20 Rate Blood Pressure 165/89 O2 Sat by Pulse 99 Oximetry Medical Decision Making <Kailyn Esteves - Last Filed: 01/21/25 16:29> <Naomi Guerrero - Last Filed: 01/21/25 18:08> - Medical Decision Making I completed the quick note portion of this chart signed Kailyn Esteves PA-C (Kailyn Esteves) Was pt. sent in by a medical professional or institution ([facility] Nugent, LIGHT OUT EXAMINER, urgent care, hospital, or alf...) When possible be specific @ -No Did you speak to anyone other than the patient for history (EMS, parent, family, police, friend...)? What history was obtained from this source @ -No Did you review nursing and triage notes (agree or disagree)? Why? @ -I reviewed and agree with nursing and triage notes Were old charts reviewed (outside hosp., previous admission, EMS record, old EKG, old radiological studies, urgent care reports/EKG's, alf records)? Report findings @ -No old charts were reviewed Differential Diagnosis (chest pain, altered mental status, abdominal pain women, abdominal pain men, vaginal bleeding, weakness, fever, dyspnea, syncope, headache, dizziness, GI bleed, back pain, seizure, CVA, palpatations, mental health, musculoskeletal)? @ -Differential Musculoskeletal Muscular strain, contusion, ligament sprain, fracture, arthritis, septic arthritis, bursitis, cellulitis, muscle spasm, nerve compression, DVT, arterial occlusion, herpes zoster, electrolyte abnormality, tumor.... This is not meant to be in all inclusive list EKG interpreted by me (3pts min.). @ -None X-rays interpreted by me (1pt min.). @ -None done CT interpreted by me (1pt min.). @ -None done U/S interpreted by me (1pt. min.). @ -Ultrasound left lower extremity negative for DVT What testing was considered but not performed or refused? (CT, X-rays, U/S, labs)? Why? @ -None What meds were considered but not given or refused? Why? @ -None Did you discuss the management of the patient with other professionals (professionals i.e. [facility] Nugent, LIGHT OUT EXAMINER, lab, RT, psych nurse, social worker school, divorce lawyer, teacher, delinquency prevention officer, top case assembler)? Give summary @ -No Was smoking cessation discussed for >3mins.? @ -No Was critical care preformed (if so, how long)? @ -No Were there social determinants of health that impacted care today? How? (Homelessness, low income, unemployed, alcoholism, drug addiction, transportation, low edu. Level, literacy, decrease access to med. care, snf, rehab)? @ -No Was there de-escalation of care discussed even if they declined (Discuss DNR or withdrawal of care, Hospice)? DNR status @ -No What co-morbidities impacted this encounter? (DM, HTN, Smoking, COPD, CAD, Cancer, CVA, ARF, Chemo, Hep., AIDS, mental health diagnosis, sleep apnea, morbid obesity)? @ -None Was patient admitted / discharged? Hospital course, mention meds given and route, prescriptions, significant lab abnormalities, going to OR and other pertinent info. @ -Discharge. 54-year-old female with history of DVT on Eliquis presenting for left lower leg pain x 1 day. Neurovascularly intact. No sign of bacterial infection. Able to ambulate without difficulties. Ultrasound left lower extremity negative for DVT. Results discussed with patient. Appropriate return precautions and follow-up care discussed. Patient is agreeable to plan. Case was discussed with the ED attending Dr. Gamez. Undiagnosed new problem with uncertain prognosis? @ -No Drug Therapy requiring intensive monitoring for toxicity (Heparin, Nitro, Insulin, Cardizem)? @ -No Were any procedures done? @ -No Diagnosis/symptom? @ -Left lower leg pain Acute, or Chronic, or Acute on Chronic? @ -Acute Uncomplicated (without systemic symptoms) or Complicated (systemic symptoms)? @ -Uncomplicated Side effects of treatment? @ -No Exacerbation, Progression, or Severe Exacerbation? @ -No Poses a threat to life or bodily function? How? (Chest pain, USA, MS, pneumonia, PE, COPD, DKA, ARF, appy, cholecystitis, CVA, Diverticulitis, Homicidal, Suicidal, threat to staff... and all critical care pts) @ -No (Naomi Guerrero) Disposition <Kailyn Esteves - Last Filed: 01/21/25 16:29> Is patient prescribed a controlled substance at d/c from ED?: No Time of Disposition: 17:56 <Naomi Guerrero - Last Filed: 01/21/25 18:08> Clinical Impression: Left leg pain Disposition: HOME SELF-CARE Condition: Stable Additional Instructions: Please return to the Emergency Department if symptoms worsen or any other concerns. Referrals: Brayden Valdovinos DO [Primary Care Provider] - 1-2 days
[2025-01-21 16:35] VITALS: RESP 20; TEMP 98.5
--- NOTE | 2025-01-21 17:08 | US ---
EXAMINATION TYPE: US venous doppler duplex LE LT DATE OF EXAM: 01/21/2025 4:53 PM COMPARISON: NONE CLINICAL INDICATION: Female, 54 years old with history of pain, hx of DVT; Left calf pain, no redness or swelling, on blood thinenrs, Pain TECHNIQUE: The lower extremity deep venous system is examined utilizing real time linear array sonog shahana with graded compression, color doppler sonography, and spectral doppler. SIDE PERFORMED: Left FINDINGS: VESSELS IMAGED: Common Femoral Vein Deep Femoral Vein Greater Saphenous Vein * Femoral Vein Popliteal Vein Small Saphenous Vein * Proximal Calf Veins (* superficial vessels) Left Leg: Negative for DVT, Color Doppler imaging shows patency of the vessels. Spectral waveforms a re within normal limits. IMPRESSION: No ultrasound evidence for deep venous thrombosis. [facility], , 01/21/2025 5:05 PM
[2025-01-21 18:10] VITALS: BP 136/64; PULSE 80
== END 2025-01-21 18:10 | disposition home or self-care (01) ==
LOC: EC 15:58
DX: M79.662 Pain in left lower leg (principal); Z91.048 Other nonmedicinal substance allergy status; Z88.1 Allergy status to other antibiotic agents; Z88.8 Allergy status to other drugs, medicaments and biological substances; Z79.01 Long term (current) use of anticoagulants
CPT/HCPCS: 99283

== ENCOUNTER 2025-03-11 20:35 | Emergency (ER) | payer MEDICARE ==
--- NOTE | 2025-03-11 21:21 | ED ---
General Adult HPI - General Chief complaint: Abdominal Pain Stated complaint: abd pain Time Seen by Provider: 03/11/25 21:05 Source: patient Mode of arrival: ambulatory Limitations: no limitations - History of Present Illness Initial comments: Dictation was produced using Archive dictation software. please excuse any grammatical, word or spelling errors. Chief Complaint: 54-year-old female with history of cholecystectomy and pancreatitis presents to the emergency department for epigastric abdominal pain History of Present Illness: Patient is a 54-year-old female she has multiple colon including pancreatitis, DVT, diabetes and stroke. Presents to the emergency department for epigastric abdominal pain. Patient states she had some low-grade's at home. Denies any diarrhea. States that her pain reminds her of pancreatitis she has been diet as. She has history of cholecystectomy. States that her pain is sharp radiates to the back. Denies any constitutional symptoms. Denies any chest pain or shortness of breath The ROS documented in this emergency department record has been reviewed and confirmed by me. Those systems with pertinent positive or negative responses have been documented in the HPI. All other systems are other negative and/or noncontributory. - Related Data Home Medications Medication Instructions Recorded Confirmed Albuterol Sulfate [Albuterol 2 puff INHALATION RT-Q6H PRN 11/15/22 12/11/24 Sulfate Hfa] Apixaban [Eliquis] 5 mg PO BID 11/15/22 12/11/24 Insulin Aspart [NovoLOG Flexpen] See Protocol SQ TID-W/MEALS 11/15/22 12/11/24 Montelukast Sodium [Singulair] 10 mg PO HS 11/15/22 12/11/24 Ranolazine [Ranexa] 500 mg PO BID 11/28/23 12/11/24 Isosorbide Mononitrate ER [Imdur] 60 mg PO DAILY 12/19/23 12/11/24 Insulin Degludec [Tresiba 44 units SQ DAILY 03/15/24 12/11/24 Flextouch U-100 Pen] Fluticasone Propion/Salmeterol 1 puff INHALATION RT-BID PRN 06/06/24 12/11/24 [Advair 100-50 Diskus] Insulin Aspart [NovoLOG Flexpen] 17 units SQ TID-W/MEALS 06/06/24 12/11/24 Semaglutide [Ozempic] 0.25 mg SQ TH 06/06/24 12/11/24 [place] Carbonate 300 mg PO BID 08/25/24 12/11/24 clonazePAM [KlonoPIN] 0.5 mg PO BID 08/25/24 12/11/24 dilTIAZem HCL [Tiazac] 180 mg PO HS 08/25/24 12/11/24 ARIPiprazole [Abilify] 10 mg PO HS 12/11/24 12/11/24 Magnesium Oxide [Magox 400] 400 mg PO DAILY 12/11/24 12/11/24 Previous Rx's Medication Instructions Recorded traZODone HCL [Desyrel] 50 mg PO HS PRN #30 tab 12/20/23 Allergies Allergy/AdvReac Type Severity Reaction Status Date / Time adhesive Allergy red skin Verified 03/11/25 20:57 trimethobenzamide Allergy Rash/Hives Verified 03/11/25 20:57 [From [place]] vancomycin Allergy Rash/Hives Verified 03/11/25 20:57 Review of Systems ROS Statement: Those systems with pertinent positive or pertinent negative responses have been documented in the HPI. ROS Other: All systems not noted in ROS Statement are negative. Past Medical History Past Medical History: Asthma, Chest Pain / Angina, CVA/TIA, Diabetes Mellitus, Deep Vein Thrombosis (DVT), Fibromyalgia, GERD/Reflux, Hyperlipidemia, Hypertens ion, Liver Disease, Myocardial Infarction (CA), Pulmonary Embolus (PE) Additional Past Medical History / Comment(s): fibomyalgia, light weakness on left after stroke coming back. mild CA from EKG unknown time. blood in stools. non alcoholic fatty liver,, diverticulosis. Last Myocardial Infarction Date:: unk History of Any Multi-Drug Resistant Organisms: C-DIFF Date of last positivie culture/infection: 2019 MDRO Source:: stool Past Surgical History: Appendectomy, Cholecystectomy, Hysterectomy, Orthopedic Surgery, Tonsillectomy Additional Past Surgical History / Comment(s): left knee replaced. left rotator cuff repair . rt hip stretched bursa. colonoscopies, laproscopic surgery to remove abdominal adhesions, left femur sx Past Anesthesia/Blood Transfusion Reactions: Postoperative Nausea & Vomiting (PONV) Additional Past Anesthesia/Blood Transfusion Reaction / Comment(s): with lap procedure had a hard time waking up. Past Psychological History: Bipolar, Depression Smoking Status: Never smoker Past Alcohol Use History: None Reported Past Drug Use History: None Reported - Past Family History Mother Family Medical History: Cancer Additional Family Medical History / Comment(s): uterine Father Family Medical History: Cancer Additional Family Medical History / Comment(s): lung General Exam - General Exam Comments Initial Comments: PHYSICAL EXAM: General Impression: Alert and oriented x3, acute distress secondary to pain HEENT: Normocephalic atraumatic, extra-ocular movements intact, pupils equal and reactive to light bilaterally, mucous membranes moist. Cardiovascular: Heart regular rate and rhythm Chest: Able to complete full sentences, no retractions, no tachypnea Abdomen: abdomen soft, epigastric palpatory tenderness, non-distended, no organomegaly Musculoskeletal: Pulses present and equal in all extremities, no peripheral edema Motor: no focal deficits noted Neurological: CN II-XII grossly intact, no focal motor or sensory deficits noted Skin: Intact with no visualized rashes Psych: Normal affect and mood Limitations: no limitations Course Vital Signs 03/11/25 20:54 Temperature 98.1 F Pulse Rate 79 Respiratory 18 Rate Blood Pressure 181/94 O2 Sat by Pulse 96 Oximetry Medical Decision Making - Medical Decision Making Was pt. sent in by a medical professional or institution (, PA, ROLLER DIE CUTTING MACHINE OPERATOR, urgent care, hospital, or retirement...) When possible be specific @ -No Did you speak to anyone other than the patient for history (EMS, parent, family, police, friend...)? What history was obtained from this source @ -No Did you review nursing and triage notes (agree or disagree)? Why? @ -I reviewed and agree with nursing and triage notes Were old charts reviewed (outside hosp., previous admission, EMS record, old EKG, old radiological studies, urgent care reports/EKG's, retirement records)? Report findings @ -No old charts were reviewed Differential Diagnosis (chest pain, altered mental status, abdominal pain women, abdominal pain men, vaginal bleeding, musculoskeletal, weakness, fever, dyspnea, syncope, headache, dizziness, GI bleed, back pain, seizure, CVA, palpatations, m ental health)? @ -Differential Abdominal Pain Women: Appendicitis, Cholecystitis, diverticulosis, ischemic bowel, pancreatitis, hepatitis, UTI, gastroenteritis, AAA, incarcerated hernia, bowel obstruction, constipation, inflammatory bowel, hepatitis, peptic ulcer disease, splenic infarction, perforated viscus, vulvitis, ovarian torsion, PID, kidney stone, placenta abruption, this is not meant to be an all-inclusive list EKG interpreted by me (3pts min.). @ -None done X-rays interpreted by me (1pt min.). @ -None done CT interpreted by me (1pt min.). @ -CT of the abdomen pelvis shows no acute processes U/S interpreted by me (1pt. min.). @ -None done What testing was considered but not performed or refused? (CT, X-rays, U/S, labs)? Why? @ -None What meds were considered but not given or refused? Why? @ -None Was smoking cessation discussed for >3mins.? @ -No Were there social determinants of health that impacted care today? How? (Homelessness, low income, unemployed, alcoholism, drug addiction, transportation, low edu. Level, literacy, decrease access to med. care, alf, rehab)? @ -No Was there de-escalation of care discussed even if they declined (Discuss DNR or withdrawal of care, Hospice)? DNR status @ -No What co-morbidities impacted this encounter? (DM, HTN, Smoking, COPD, CAD, Cancer, CVA, ARF, Chemo, Hep., AIDS, mental health diagnosis, sleep apnea, morbid obesity)? @ -History of pancreatitis Was patient admitted / discharged? Hospital course, mention meds given and route, prescriptions, significant lab abnormalities, going to OR and other pertinent info. @ -54-year-old female presents to the emergency department with acute abdominal pain. Vital signs stable. She reports history of pancreatitis. Physical examination shows well-appearing female with palpatory epigastric abdominal tenderness laboratory evaluations unremarkable. Abdominal labs negative. Urinalysis negative. CT abdomen pelvis shows no acute process. Patient symptoms improved after IV analgesics. Patient stable upon reevaluation at 12:50 AM. Patient be discharged advised follow-up with primary care doctor. Did you discuss the management of the patient with other professionals (professionals i.e. , PA, ROLLER DIE CUTTING MACHINE OPERATOR, lab, RT, psych nurse, social work faculty member, field checker, teacher, minesweeping officer, nurse case management)? Give summary @ -No Was critical care preformed (if so, how long)? @ -No Undiagnosed new problem with uncertain prognosis? @ -No Drug Therapy requiring intensive monitoring for toxicity (Heparin, Nitro, Insulin, Cardizem)? @ -No Were any procedures done? @ -No Diagnosis/symptom? Acute, or Chronic, or Acute on Chronic? Uncomplicated (without systemic symptoms) or Complicated (systemic symptoms)? @ -. Acute abdominal pain, no high risk features Side effects of treatment? @ -No Exacerbation, Progression, or Severe Exacerbation? @ -No Poses a threat to life or bodily function? How? (Chest pain, USA, CA, pneumonia, PE, COPD, DKA, ARF, appy, cholecystitis, CVA, Diverticulitis, Homicidal, Suicidal, threat to staff... and all critical care pts) @ -No - Lab Data Result diagrams: 03/11/25 22:03 03/11/25 22:03 Lab Results 03/11/25 03/11/25 03/11/25 Range/Units 22:03 22:03 22:37 WBC 4.76 (4.50-10.00) 10*3/uL RBC 4.66 (4.10-5.20) 10*6/uL Hgb 14.0 (12.0-15.0) g/dL Hct 41.1 (37.2-46.3) % MCV 88.2 (80.0-97.0) fL MCH 30.0 (27.0-32.0) pg MCHC 34.1 (32.0-37.0) g/dL Plt Count 245 (140-440) 10*3/uL MPV 9.5 (9.5-12.2) fL Immature Gran % (Auto) 0 % Neutrophils % 57.2 % Lymphocytes % 31.9 % Monocytes % 7.8 % Eosinophils % 2.7 % Basophils % 0.4 % Immature Gran # 0.00 (0.00-0.04) 10*3/uL Neutrophils # 2.72 (1.80-7.70) 10*3/uL Lymphocytes # 1.52 (0.90-5.00) 10*3/uL Monocytes # 0.37 (0.20-1.00) 10*3/uL Eosinophils # 0.13 (0.04-0.35) 10*3/uL Basophils # 0.02 (0.00-0.10) 10*3/uL Sodium 139 (137-145) mmol/L Potassium 3.9 (3.5-5.1) mmol/L Chloride 108 H (98-107) mmol/L Carbon Dioxide 26 (22-30) mmol/L Anion Gap 5 mmol/L BUN 13 (7-17) mg/dL Creatinine 0.56 (0.52-1.04) mg/dL Est GFR (CKD-EPI)AfAm >90 (>60 ml/min/1.73 sqM) Est GFR (CKD-EPI)NonAf >90 (>60 ml/min/1.73 sqM) Glucose 168 H (74-99) mg/dL Calcium 9.1 (8.4-10.2) mg/dL Total Bilirubin 0.3 (0.2-1.3) mg/dL AST 18 (14-36) U/L ALT 19 (4-34) U/L Alkaline Phosphatase 79 (38-126) U/L Total Protein 6.1 L (6.3-8.2) g/dL Albumin 3.8 (3.5-5.0) g/dL Lipase 95 (23-300) U/L Urine Color Light Yellow Urine Appearance Clear (Clear) Urine pH 6.0 (5.0-8.0) Ur Specific [place] 1.022 (1.001-1.035) Urine Protein Negative (Negative) Urine Glucose (UA) 4+ H (Negative) Urine Ketones Negative (Negative) Urine Blood Negative (Negative) Urine Nitrite Negative (Negative) Urine Bilirubin Negative (Negative) Urine Urobilinogen <2.0 (<2.0) mg/dL Ur Leukocyte Esterase Negative (Negative) Disposition Clinical Impression: Abdominal pain Disposition: HOME SELF-CARE Condition: Good Instructions (If sedation given, give patient instructions): Abdominal Pain (E D) Is patient prescribed a controlled substance at d/c from ED?: No Referrals: None,Stated [REFERRING] - 1-2 days Time of Disposition: 00:50
[2025-03-11] MEDS: SODIUM CHLORIDE 0.9% 1,000 ML IV STA (22:08)
[2025-03-11] MEDS: MORPHINE SULFATE 4 MG/ML SYRINGE IV STA (22:09)
[2025-03-11] MEDS: ONDANSETRON 4 MG/2 ML VIAL IVP STA (22:09)
[2025-03-11 22:16] LABS: Basophils # (A) 0.02 10*3/uL (0.00-0.10); Basophils % (A) 0.4 %; Eosinophils # (A) 0.13 10*3/uL (0.04-0.35); Eosinophils % (A) 2.7 %; HCT 41.1 % (37.2-46.3); Lymphocytes # (A) 1.52 10*3/uL (0.90-5.00); Lymphocytes % (A) 31.9 %; MCHC 34.1 g/dL (32.0-37.0); MCV 88.2 fL (80.0-97.0); Mean Platelet Volume 9.5 fL (9.5-12.2); Monocytes # (A) 0.37 10*3/uL (0.20-1.00); Monocytes % (A) 7.8 %; Neutrophils # (A) 2.72 10*3/uL (1.80-7.70); Neutrophils % (A) 57.2 %; Platelet Count 245 10*3/uL (140-440); RBC 4.66 10*6/uL (4.10-5.20); RDW 12.3 % (11.5-14.5); WBC 4.76 10*3/uL (4.50-10.00)
[2025-03-11 23:09] LABS: ALT 19 U/L (4-34); AST 18 U/L (14-36); African American GFR (CKD) >90 (>60 ml/min/1.73 sqM); Albumin 3.8 g/dL (3.5-5.0); Alkaline Phosphatase 79 U/L (38-126); Anion Gap 5 mmol/L; Blood Urea Nitrogen 13 mg/dL (7-17); Calcium 9.1 mg/dL (8.4-10.2); Carbon Dioxide 26 mmol/L (22-30); Chloride 108 mmol/L (98-107); Glucose 168 mg/dL (74-99); Lipase 95 U/L (23-300); Non-African American GFR(CKD) >90 (>60 ml/min/1.73 sqM); Potassium 3.9 mmol/L (3.5-5.1); Sodium 139 mmol/L (137-145); Total Bilirubin 0.3 mg/dL (0.2-1.3); Total Protein 6.1 g/dL (6.3-8.2)
[2025-03-11 23:12] LABS: Appearance,Urine Clear (Clear); Bilirubin,Urine Negative (Negative); Blood,Urine Negative (Negative); Color,Urine Light Yellow; Glucose,Urine (UA) 4+ (Negative); Ketones,Urine Negative (Negative); Leukocyte Esterase,Urine Negative (Negative); Nitrite,Urine Negative (Negative); Protein,Urine Negative (Negative); Specific Gravity,Urine 1.022 (1.001-1.035); Urobilinogen,Urine <2.0 mg/dL (<2.0)
[2025-03-12] MEDS: HYDROmorphone 1 MG/ML 1 ML SYRINGE IVP STA (00:21)
--- NOTE | 2025-03-12 00:44 | CT ---
EXAM: CT Abdomen and Pelvis With Intravenous Contrast CLINICAL HISTORY: Left upper quadrant pain with nausea, vomiting, diarrhea and intermittent. TECHNIQUE: Axial computed tomography images of the abdomen and pelvis with intravenous contrast. CTDI is 48 mGy and DLP is 2385.1 mGy-cm. This CT exam was performed using one or more of the following dose reduction techniques: automated exposure control, adjustment of the mA and/or kV according to patient size, and/or use of iterative reconstruction technique. COMPARISON: CT abdomen and pelvis with contrast dated 12/11/2024 FINDINGS: Lung bases: Unremarkable. No mass. No consolidation. ABDOMEN: Liver: Unremarkable. No mass. Gallbladder and bile ducts: Status post cholecystectomy. No ductal dilation. Pancreas: Unremarkable. No mass. No ductal dilation. Spleen: Unremarkable. No splenomegaly. Adrenals: Unremarkable. No mass. Kidneys and ureters: Delayed phase imaging demonstrates normal excreted contrast in the renal collecting systems and throughout the proximal to mid ureters. No hydronephrosis. Stomach and bowel: The stomach is mildly distended without gastric mucosal thickening. No evidence for bowel obstruction. No asymmetric bowel mucosal abnormality. Mild stool burden. No appreciable diverticulitis. PELVIS: Appendix: Status post appendectomy. Bladder: Unremarkable. No mass. Reproductive: Status post hysterectomy. ABDOMEN and PELVIS: Intraperitoneal space: Unremarkable. No free air. No significant fluid collection. Bones/joints: Similar multilevel degenerative changes. No acute osseous abnormality. No dislocation. Soft tissues: Unremarkable. Vasculature: The aorta is heavily calcified and is normal in caliber. No dissection or aneurysm. Lymph nodes: Unremarkable. No enlarged lymph nodes. IMPRESSION: 1. No evidence for bowel obstruction. No asymmetric bowel mucosal abnormality. Mild stool burden. No appreciable diverticulitis. No free intraperitoneal fluid or pneumoperitoneum. 2. No other significant abnormality within the abdomen or pelvis to suggest the patient's reported clinical symptoms.
[2025-03-12 01:03] VITALS: BP 149/75; PULSE 73; RESP 17; TEMP 97.6
== END 2025-03-12 01:03 | disposition home or self-care (01) ==
LOC: EC 20:35
DX: R10.13 Epigastric pain (principal); Z91.09 Other allergy status, other than to drugs and biological substances; Z88.1 Allergy status to other antibiotic agents; Z88.8 Allergy status to other drugs, medicaments and biological substances; Z87.19 Personal history of other diseases of the digestive system; Z86.73 Personal history of transient ischemic attack (TIA), and cerebral infarction without residual deficits
CPT/HCPCS: 36415; 80053; 83690; 85025; 81003; 74177; 99284; 96374; 96375 ×2; 96361; J2270; J2405; J1171; Q9967

== ENCOUNTER 2025-03-26 03:17 | Inpatient (IN) | payer MEDICARE ==
[2025-03-26 03:39] LABS: Glucose,Whole Blood 262 mg/dL (70-110)
--- NOTE | 2025-03-26 03:46 | CT ---
EXAM: CT Head Without Intravenous Contrast CLINICAL HISTORY: Neuro deficit, acute, stroke suspected TECHNIQUE: Axial computed tomography images of the head/brain without intravenous contrast. CTDI is 48.9 mGy and DLP is 1180.2 mGy-cm. This CT exam was performed using one or more of the following dose reduction techniques: automated exposure control, adjustment of the mA and/or kV according to patient size, and/or use of iterative reconstruction technique. COMPARISON: CT head without contrast dated 08/25/2024 FINDINGS: Brain: Stable well-defined hypodense area involving the inferior left basal ganglia without alteration in morphologic appearance or size. No intracranial hemorrhage. No significant mass-effect. No evidence for cortical infarct. No significant white matter disease. Ventricles: Unremarkable. No ventriculomegaly. Bones/joints: Unremarkable. No acute fracture. Soft tissues: Unremarkable. Sinuses: Incidental retention cyst or polyp involving the posterior and inferior left maxillary sinus. The remaining paranasal sinuses are well aerated. Mastoid air cells: Unremarkable as visualized. No mastoid effusion. IMPRESSION: No acute intracranial process or significant alteration from the prior examination. Stable appearing presumed incidental enlarged perivascular space in the inferior left basal ganglia.
--- NOTE | 2025-03-26 03:50 | XR ---
EXAM: XR Chest, 1 View CLINICAL HISTORY: Altered mental status TECHNIQUE: Frontal view of the chest. COMPARISON: Chest 2 views dated 12/11/2024 FINDINGS: Lungs: Shallow inspiration. No focal consolidation. The pulmonary vasculature demonstrates no significant radiographic abnormality. Pleural space: Unremarkable. No pneumothorax. No large pleural effusion. Heart: Unremarkable. No cardiomegaly. Mediastinum: No significant abnormality identified. The trachea is midline. Bones/joints: Unremarkable. No acute fracture. IMPRESSION: No acute cardiopulmonary process or significant alteration from the prior exam.
--- NOTE | 2025-03-26 03:53 | ED ---
Neuro HPI - General Chief Complaint: Neuro Symptoms/Deficit Stated Complaint: Neuro symptoms Time Seen by Provider: 03/26/25 03:20 Source: patient, EMS, RN notes reviewed, old records reviewed Mode of arrival: EMS Limitations: no limitations - History of Present Illness Is the patient presenting with stroke symptoms?: No -: minutes(s) Initial Comments: This is a 54 female who started with symptoms at 0240 the symptoms included slurred speech and weakness worsening left-sided weakness from her baseline she has old CVA. Patient is on Eliquis for A-fib has not taken her Eliquis in 6 days. Patient is also having some left-sided facial droop and left-sided facial numbness, denies any other complaints. Patient also has headache. Patient did not go to bed tonight did not sleep always stays awake late at night and was not sleeping when the symptoms started Location: speech, left face, dysarthria, left arm History of same: No Place: home Severity: moderate Quality: weak, numb, tingling Improves With: none Worsens With: none Context: sudden onset Associated Symptoms: denies other symptoms Treatments Prior to Arrival: none - Related Data Home Medications: Home Medications Medication Instructions Recorded Confirmed Albuterol Sulfate [Albuterol 2 puff INHALATION RT-Q6H PRN 11/15/22 03/26/25 Sulfate Hfa] Apixaban [Eliquis] 5 mg PO BID 11/15/22 03/26/25 Insulin Aspart [NovoLOG Flexpen] See Protocol SQ TID-W/MEALS 11/15/22 03/26/25 Montelukast Sodium [Singulair] 10 mg PO HS 11/15/22 03/26/25 Ranolazine [Ranexa] 500 mg PO BID 11/28/23 03/26/25 Isosorbide Mononitrate ER [Imdur] 60 mg PO DAILY 12/19/23 03/26/25 Insulin Degludec [Tresiba 44 units SQ DAILY 03/15/24 03/26/25 Flextouch U-100 Pen] Fluticasone Propion/Salmeterol 1 puff INHALATION RT-BID PRN 06/06/24 03/26/25 [Advair 100-50 Diskus] Insulin Aspart [NovoLOG Flexpen] 17 units SQ TID-W/MEALS 06/06/24 03/26/25 Willows Carbonate 300 mg PO BID 08/25/24 03/26/25 clonazePAM [KlonoPIN] 0.5 mg PO DAILY 08/25/24 03/26/25 dilTIAZem HCL [Tiazac] 180 mg PO HS 08/25/24 03/26/25 Magnesium Oxide [Magox 400] 400 mg PO DAILY 12/11/24 03/26/25 ARIPiprazole [Abilify] 15 mg PO HS 03/26/25 03/26/25 Previous Rx's Medication Instructions Recorded traZODone HCL [Desyrel] 50 mg PO HS PRN #30 tab 12/20/23 Aspirin 325 mg PO DAILY tab 03/29/25 Atorvastatin [Lipitor] 80 mg PO HS 30 Days #30 tab 03/29/25 Ofloxacin 0.3% Ophth Soln [Ocuflox 1 drops RIGHT EYE Q4HR 10 Days #3 03/29/25 Ophth Soln] ml Allergies/Adverse Reactions: Allergies Allergy/AdvReac Type Severity Reaction Status Date / Time adhesive Allergy red skin - Verified 03/26/25 07:57 paper tape OK trimethobenzamide Allergy Rash/Hives Verified 03/26/25 07:57 [From Tigan] vancomycin Allergy Rash/Hives Verified 03/26/25 07:57 Review of Systems ROS Statement: Those systems with pertinent positive or pertinent negative responses have been documented in the HPI. ROS Other: All systems not noted in ROS Statement are negative. General Exam General appearance: alert, in no apparent distress Head exam: Present: atraumatic, normocephalic, normal inspection Eye exam: Present: normal appearance, PERRL, EOMI. Absent: scleral icterus, conjunctival injection, periorbital swelling ENT exam: Present: normal exam, mucous membranes moist Neck exam: Present: normal inspection. Absent: tenderness, meningismus, lymphadenopathy Respiratory exam: Present: normal lung sounds bilaterally. Absent: respiratory distress, wheezes, rales, rhonchi, stridor Cardiovascular Exam: Present: regular rate, normal rhythm, normal heart sounds. Absent: systolic murmur, diastolic murmur, rubs, gallop, clicks GI/Abdominal exam: Present: soft, normal bowel sounds. Absent: distended, tenderness, guarding, rebound, rigid Extremities exam: Present: normal inspection, full ROM, normal capillary refill. Absent: tenderness, pedal edema, joint swelling, calf tenderness Back exam: Present: normal inspection Neurological exam: Present: alert, oriented X3, CN II-XII intact Psychiatric exam: Present: normal affect, normal mood Skin exam: Present: warm, dry, intact, normal color. Absent: rash Stroke MDM - Lab Data Result diagrams: 03/28/25 08:11 03/28/25 08:11 Lab Results 03/26/25 03/26/25 03/26/25 Range/Units 03:37 04:01 04:01 WBC 5.52 (4.50-10.00) 10*3/uL RBC 4.52 (4.10-5.20) 10*6/uL Hgb 13.6 (12.0-15.0) g/dL Hct 39.5 (37.2-46.3) % MCV 87.4 (80.0-97.0) fL MCH 30.1 (27.0-32.0) pg MCHC 34.4 (32.0-37.0) g/dL Plt Count 222 (140-440) 10*3/uL MPV 9.6 (9.5-12.2) fL Immature Gran % (Auto) 0.2 % Neutrophils % 63.7 % Lymphocytes % 25.4 % Monocytes % 7.6 % Eosinophils % 2.4 % Basophils % 0.7 % Immature Gran # 0.01 (0.00-0.04) 10*3/uL Neutrophils # 3.52 (1.80-7.70) 10*3/uL Lymphocytes # 1.40 (0.90-5.00) 10*3/uL Monocytes # 0.42 (0.20-1.00) 10*3/uL Eosinophils # 0.13 (0.04-0.35) 10*3/uL Basophils # 0.04 (0.00-0.10) 10*3/uL PT 9.9 L (10.0-12.5) sec INR 0.9 (<1.2) APTT 26.4 (22.0-30.0) sec Sodium (137-145) mmol/L Potassium (3.5-5.1) mmol/L Chloride (98-107) mmol/L Carbon Dioxide (22-30) mmol/L Anion Gap mmol/L BUN (7-17) mg/dL Creatinine (0.52-1.04) mg/dL Est GFR (CKD-EPI)AfAm (>60 ml/min/1.73 sqM) Est GFR (CKD-EPI)NonAf (>60 ml/min/1.73 sqM) Glucose (74-99) mg/dL POC Glucose (mg/dL) 262 H (70-110) mg/dL POC Glu [employer] ID Sis Osorio Calcium (8.4-10.2) mg/dL Total Bilirubin (0.2-1.3) mg/dL AST (14-36) U/L ALT (4-34) U/L Alkaline Phosphatase (38-126) U/L Creatine Kinase (30-135) U/L Troponin I (0.000-0.034) ng/mL Total Protein (6.3-8.2) g/dL Albumin (3.5-5.0) g/dL 03/26/25 03/26/25 Range/Units 04:01 04:01 WBC (4.50-10.00) 10*3/uL RBC (4.10-5.20) 10*6/uL Hgb (12.0-15.0) g/dL Hct (37.2-46.3) % MCV (80.0-97.0) fL MCH (27.0-32.0) pg MCHC (32.0-37.0) g/dL Plt Count (140-440) 10*3/uL MPV (9.5-12.2) fL Immature Gran % (Auto) % Neutrophils % % Lymphocytes % % Monocytes % % Eosinophils % % Basophils % % Immature Gran # (0.00-0.04) 10*3/uL Neutrophils # (1.80-7.70) 10*3/uL Lymphocytes # (0.90-5.00) 10*3/uL Monocytes # (0.20-1.00) 10*3/uL Eosinophils # (0.04-0.35) 10*3/uL Basophils # (0.00-0.10) 10*3/uL PT (10.0-12.5) sec INR (<1.2) APTT (22.0-30.0) sec Sodium 139 (137-145) mmol/L Potassium 3.8 (3.5-5.1) mmol/L Chloride 105 (98-107) mmol/L Carbon Dioxide 26 (22-30) mmol/L Anion Gap 8 mmol/L BUN 12 (7-17) mg/dL Creatinine 0.59 (0.52-1.04) mg/dL Est GFR (CKD-EPI)AfAm >90 (>60 ml/min/1.73 sqM) Est GFR (CKD-EPI)NonAf >90 (>60 ml/min/1.73 sqM) Glucose 190 H (74-99) mg/dL POC Glucose (mg/dL) (70-110) mg/dL POC Glu [employer] ID Calcium 9.2 (8.4-10.2) mg/dL Total Bilirubin 0.4 (0.2-1.3) mg/dL AST 16 (14-36) U/L ALT 17 (4-34) U/L Alkaline Phosphatase 86 (38-126) U/L Creatine Kinase 33 (30-135) U/L Troponin I <0.012 (0.000-0.034) ng/mL Total Protein 6.0 L (6.3-8.2) g/dL Albumin 3.6 (3.5-5.0) g/dL - NIH Stroke Scale 1a. Level of Consciousness: (0) alert 1b. LOC Questions: (0) answers correctly 1c. LOC Commands: (0) performs tasks correctly 2. Best Gaze: (0) normal 3. Visual: (0) no visual loss 4. Facial Palsy: (1) minor paralysis 5a. Motor Arm Left: (0) no drift 5b. Motor Arm Right: (0) no drift 6a. Motor Leg Left: (0) no drift 6b. Motor Leg Right: (0) no drift 7. Limb Ataxia: (0) absent 8. Sensory: (0) normal 9. Best Language: (1) mild/moderate aphasia 10. Dysarthria: (1) mild/moderate dysarthria 11. Extinction/Inattention: (0) no abnormality - Thrombolytic Inclusion/Exclusion Thrombolytic Inclusion Criteria: Symptom Onset < 4.5 h - Core Measures Door to Thrombolytics, if given: Not given cons regarding low NIH and low 30 of symptoms outweigh benefits Measure Exclusions: not indicated - Medical Decision Making 54 female to ER for evaluation of CVA acute CVA 20 to 30 minutes prior to arrival. Patient is with history of A-fib has not been taking her Eliquis and coming in for CVA NIH 4. No change in age throughout ER stay patient was not given tPA secondary to risk over benefit - Radiology Data Radiology results: report reviewed, image reviewed (Brain CT angio head and neck negative for acute disease) - EKG Data -: EKG Interpreted by Me (EKG is sinus 84 NJ 143 QRS 96 QTc 356) Past Medical History Past Medical History: Asthma, Chest Pain / Angina, CVA/TIA, Diabetes Mellitus, Deep Vein Thrombosis (DVT), Fibromyalgia, GERD/Reflux, Hyperlipidemia, Hypertension, Liver Disease, Myocardial Infarction (VA), Pulmonary Embolus (PE) Additional Past Medical History / Comment(s): fibomyalgia, light weakness on left after stroke coming back. mild VA from EKG unknown time. blood in stools. non alcoholic fatty liver,, diverticulosis. Last Myocardial Infarction Date:: unk History of Any Multi-Drug Resistant Organisms: C-DIFF Date of last positivie culture/infection: 2019 MDRO Source:: stool Past Surgical History: Appendectomy, Cholecystectomy, Hysterectomy, Orthopedic Surgery, Tonsillectomy Additional Past Surgical History / Comment(s): left knee replaced. left rotator cuff repair . rt hip stretched bursa. colonoscopies, laproscopic surgery to remove abdominal adhesions, left femur sx Past Anesthesia/Blood Transfusion Reactions: Postoperative Nausea & Vomiting (PONV) Additional Past Anesthesia/Blood Transfusion Reaction / Comment(s): with lap procedure had a hard time waking up. Past Psychological History: Bipolar, Depression Smoking Status: Never smoker Past Alcohol Use History: None Reported Past Drug Use History: None Reported - Past Family History Mother Family Medical History: Cancer Additional Family Medical History / Comment(s): uterine Father Family Medical History: Cancer Additional Family Medical History / Comment(s): lung Course Vital Signs 03/26/25 03/26/25 03/26/25 03:18 03:30 03:44 Temperature 98.2 F Pulse Rate 85 80 86 Respiratory 17 16 24 Rate Blood Pressure 142/72 147/71 133/66 O2 Sat by Pulse 95 95 95 Oximetry 03/26/25 03/26/25 03/26/25 03:55 04:05 04:20 Temperature Pulse Rate 82 80 78 Respiratory 20 19 19 Rate Blood Pressure 151/54 160/65 162/74 O2 Sat by Pulse 95 95 97 Oximetry 03/26/25 03/26/25 03/26/25 04:29 04:50 05:05 Temperature Pulse Rate 80 71 75 Respiratory 20 17 17 Rate Blood Pressure 158/60 156/66 140/48 O2 Sat by Pulse 96 97 96 Oximetry 03/26/25 03/26/25 03/26/25 05:35 06:05 08:00 Temperature 98.7 F Pulse Rate 84 67 64 Respiratory 17 17 18 Rate Blood Pressure 149/54 146/48 126/55 O2 Sat by Pulse 95 95 98 Oximetry 03/26/25 03/26/25 03/26/25 09:39 13:00 14:00 Temperature 97.8 F Pulse Rate 70 69 63 Respiratory 18 18 18 Rate Blood Pressure 128/63 102/49 132/57 O2 Sat by Pulse 98 98 95 Oximetry 03/26/25 03/26/25 03/26/25 17:01 18:20 20:23 Temperature 97.8 F Pulse Rate 68 75 79 Respiratory 18 20 16 Rate Blood Pressure 127/54 129/50 133/49 O2 Sat by Pulse 96 96 98 Oximetry - Reevaluation(s) Reevaluation #1: 03/26/25 04:33 Records reviewed code thrombolytic called on patient arrival When we found out she was no longer taking Eliquis in the last 5 days Reevaluation #2: 03/26/25 04:34 Patient's symptoms remain unchanged Reevaluation #3: 03/26/25 04:34 Patient informed of results questions answered Reevaluation #4: Was pt. sent in by a medical professional or institution (, PA, RIPENING ROOM ATTENDANT, urgent care, hospital, or fdc...) When possible be specific @ -no Did you speak to anyone other than the patient for history (EMS, parent, family, police, friend...)? What history was obtained from this source @ -no Did you review nursing and triage notes (agree or disagree)? Why? @ -agree Are old charts reviewed (outside hosp., previous admission, EMS record, old EKG, old radiological studies, urgent care reports/EKG's, fdc records)? Report findings @ -yes Differential Diagnosis (chest pain, altered mental status, abdominal pain women, abdominal pain men, vaginal bleeding, weakness, fever, dyspnea, syncope, headache, dizziness, GI bleed, back pain, seizure, CVA, palpatations, mental health, musculoskeletal)? @ -prior EKG interpreted by me (3pts min.). @ -yes X-rays interpreted by me (1pt min.). @ -no CT interpreted by me (1pt min.). @ -yes negative for acute disease U/S interpreted by me (1pt. min.). @ -no What testing was considered but not performed or refused? (CT, X-rays, U/S, l abs)? Why? @ -none What meds were considered but not given or refused? Why? @ -none Did you discuss the management of the patient with other professionals (professionals i.e. , PA, RIPENING ROOM ATTENDANT, lab, RT, psych nurse, web content & social media manager, primer inserting machine adjuster, teacher, seaman officer, binder caser)? Give summary @ -no Was smoking cessation discussed for >3mins.? @ -no Was critical care preformed (if so, how long)? @ -[id number] Were there social determinants of health that impacted care today? How? (Homelessness, low income, unemployed, alcoholism, drug addiction, transportation, low edu. Level, literacy, decrease access to med. care, retirement, rehab)? @ -none Was there de-escalation of care discussed even if they declined (Discuss DNR or withdrawal of care, Hospice)? DNR status @ -no What co-morbidities impacted this encounter? (DM, HTN, Smoking, COPD, CAD, Cancer, CVA, ARF, Chemo, Hep., AIDS, mental health diagnosis, sleep apnea, morbid obesity)? @ -none Was patient admitted / discharged? Hospital course, mention meds given and route, prescriptions, significant lab abnormalities, going to OR and other pertinent info. @ - 54 female to ER for evaluation of CVA acute CVA 20 to 30 minutes prior to arrival. Patient is with history of A-fib has not been taking her Eliquis and coming in for CVA NIH 4. No change in age throughout ER stay patient was not given tPA secondary to risk over benefit Admitted Undiagnosed new problem with uncertain prognosis? @ -no Drug Therapy requiring intensive monitoring for toxicity (Heparin, Nitro, Insulin, Cardizem)? @ -no Were any procedures done? @ -no Diagnosis/symptom? @ -Acute CVA A-fib Acute, or Chronic, or Acute on Chronic? @ -Acute Uncomplicated (without systemic symptoms) or Complicated (systemic symptoms)? @ -Complicated Side effects of treatment? @ -no Exacerbation, Progression, or Severe Exacerbation? @ -exacerbation Poses a threat to life or bodily function? How? (Chest pain, USA, VA, pneumonia, PE, COPD, DKA, ARF, appy, cholecystitis, CVA, Diverticulitis, Homicidal, Suicidal, threat to staff... and all critical care pts) @ -yes acute CVA Reevaluation #5: Differential CVA Ischemic stroke, hemorrhagic stroke, brain tumor, atypical migraine, Wernicke's encephalopathy, seizure, multiple sclerosis, meningitis, encephalitis, hypoglycemia, Guillain-Tamayo, electrolytes disturbance, myasthenia gravis.... This is not meant to be an all-inclusive list - Consultations Consultation #1: Spoke with [facility] who agrees to admit this patient Critical Care Time Critical Care Time: Yes Total Critical Care Time: 31 Disposition Clinical Impression: Cerebrovascular accident (CVA), Difficulty with speech, Headache Disposition: ADMITTED IP TO THIS HOSP Condition: Fair Is patient prescribed a controlled substance at d/c from ED?: No Time of Disposition: 04:30
[2025-03-26] MEDS: SODIUM CHLORIDE 0.9% 1,000 ML IV STA (04:17)
[2025-03-26 04:19] LABS: Basophils # (A) 0.04 10*3/uL (0.00-0.10); Basophils % (A) 0.7 %; Eosinophils # (A) 0.13 10*3/uL (0.04-0.35); Eosinophils % (A) 2.4 %; HCT 39.5 % (37.2-46.3); HGB 13.6 g/dL (12.0-15.0); Lymphocytes % (A) 25.4 %; MCH 30.1 pg (27.0-32.0); MCHC 34.4 g/dL (32.0-37.0); MCV 87.4 fL (80.0-97.0); Mean Platelet Volume 9.6 fL (9.5-12.2); Monocytes # (A) 0.42 10*3/uL (0.20-1.00); Monocytes % (A) 7.6 %; Neutrophils # (A) 3.52 10*3/uL (1.80-7.70); Neutrophils % (A) 63.7 %; Platelet Count 222 10*3/uL (140-440); RBC 4.52 10*6/uL (4.10-5.20); RDW 11.9 % (11.5-14.5); WBC 5.52 10*3/uL (4.50-10.00)
--- NOTE | 2025-03-26 04:21 | CT ---
EXAM: CT Angiography Head With Intravenous Contrast CLINICAL HISTORY: Neuro deficit, acute, stroke suspected TECHNIQUE: Axial computed tomographic angiography images of the head with intravenous contrast. CTDI is 16 mGy and DLP is 370.2 mGy-cm. This CT exam was performed using one or more of the following dose reduction techniques: automated exposure control, adjustment of the mA and/or kV according to patient size, and/or use of iterative reconstruction technique. 3D and MIP reconstructed images were created and reviewed. COMPARISON: CT Brain 03-26-2025, CTA Head 06-06-2024. FINDINGS: Right internal carotid artery: Mild calcified plaque at the cavernous internal carotid artery with intact distal runoff. No aneurysm. Right anterior cerebral artery: Unremarkable. No occlusion or significant stenosis. No aneurysm. Right middle cerebral artery: Unremarkable. No occlusion or significant stenosis. No aneurysm. Right posterior cerebral artery: origin. No occlusion or significant stenosis. No aneurysm. Right vertebral artery: Unremarkable as visualized. Left internal carotid artery: Mild calcified plaque at the cavernous internal carotid artery with intact distal runoff. No aneurysm. Left anterior cerebral artery: Unremarkable. No occlusion or significant stenosis. No aneurysm. Left middle cerebral artery: Unremarkable. No occlusion or significant stenosis. No aneurysm. Left posterior cerebral artery: Unremarkable. No occlusion or significant stenosis. No aneurysm. Left vertebral artery: Unremarkable as visualized. Basilar artery: Unremarkable. No occlusion or significant stenosis. No aneurysm. IMPRESSION: No large vessel occlusion. EXAM: CT Angiography Neck With Intravenous Contrast CLINICAL HISTORY: Neuro deficit, acute, stroke suspected TECHNIQUE: Routine carotid CT angiography protocol was performed with intravenous contrast. NASCET criteria using the distal ICAs for comparison were used for evaluation of stenoses. CTDI is 16 mGy and DLP is 370.2 mGy-cm. This CT exam was performed using one or more of the following dose reduction techniques: automated exposure control, adjustment of the mA and/or kV according to patient size, and/or use of iterative reconstruction technique. 3D and MIP reconstructed images were created and reviewed. COMPARISON: CTA Neck 06-06-2024. FINDINGS: VASCULATURE: Right common carotid artery: Unremarkable. No occlusion or significant stenosis. No dissection. Right internal carotid artery: Mild calcified plaque at the carotid bulb without a hemodynamically significant stenosis. No dissection. Right external carotid artery: Unremarkable. No occlusion. Right vertebral artery: Unremarkable. No occlusion or significant stenosis. No dissection. Left common carotid artery: Unremarkable. No occlusion or significant stenosis. No dissection. Left internal carotid artery: Mild calcified plaque at the carotid bulb without a hemodynamically significant stenosis. No dissection. Left external carotid artery: Unremarkable. No occlusion. Left vertebral artery: Unremarkable. No occlusion or significant stenosis. No dissection. NECK: Bones/joints: Degenerative changes of the spine. No acute fracture. Soft tissues: Unremarkable. Lung apices: Clear. CAROTID STENOSIS REFERENCE USING NASCET CRITERIA: % ICA stenosis = (1 - narrowest ICA diameter/diameter of distal cervical ICA) x 100. Mild - <50% stenosis. Moderate - 50-69% stenosis. Severe - 70-94% stenosis. Near occlusion - 95-99% stenosis. Occluded - 100% stenosis. IMPRESSION: No hemodynamically significant stenosis.
[2025-03-26 04:46] LABS: ALT 17 U/L (4-34); AST 16 U/L (14-36); African American GFR (CKD) >90 (>60 ml/min/1.73 sqM); Albumin 3.6 g/dL (3.5-5.0); Alkaline Phosphatase 86 U/L (38-126); Anion Gap 8 mmol/L; Blood Urea Nitrogen 12 mg/dL (7-17); Calcium 9.2 mg/dL (8.4-10.2); Carbon Dioxide 26 mmol/L (22-30); Chloride 105 mmol/L (98-107); Creatine Kinase 33 U/L (30-135); Glucose 190 mg/dL (74-99); Non-African American GFR(CKD) >90 (>60 ml/min/1.73 sqM); Potassium 3.8 mmol/L (3.5-5.1); Sodium 139 mmol/L (137-145); Total Bilirubin 0.4 mg/dL (0.2-1.3)
[2025-03-26] MEDS: ASPIRIN 325 MG TAB PO STA (04:50)
[2025-03-26] MEDS: SODIUM CHLORIDE 0.9% 1,000 ML IV SCH (04:52)
[2025-03-26 05:05] LABS: INR 0.9 (<1.2); Partial Thromboplastin Time 26.4 sec (22.0-30.0); Prothrombin Time 9.9 sec (10.0-12.5)
[2025-03-26] MEDS ORDERED: MORPHINE SULFATE 4 MG/ML SYRINGE IVP PRN (05:20)
[2025-03-26] MEDS: ONDANSETRON 4 MG/2 ML VIAL IVP STA (05:23)
[2025-03-26] MEDS: MORPHINE SULFATE 4 MG/ML SYRINGE IVP STA (05:25)
[2025-03-26] MEDS ORDERED: ALBUTEROL NEBULIZED 2.5 MG/3 ML INHALATION PRN (11:54)
[2025-03-26 12:18] LABS: Glucose,Whole Blood 150 mg/dL (70-110)
[2025-03-26] MEDS: INSULIN GLARGINE (LANTUS) 100 UNIT/ML SYR SQ SCH (13:10)
[2025-03-26] MEDS: INSULIN LISPRO (HumaLOG) 100 UNIT/ML 10 mL VL SQ SCH ×2 (13:11→17:21)
[2025-03-26] MEDS: ONDANSETRON 4 MG/2 ML VIAL IVP PRN (13:56)
--- NOTE | 2025-03-26 14:31 | P.CNNES ---
History of Present Illness Consult date: 03/26/25 Requesting physician: Ramon Vergara Reason for Consult: cva History of Present Illness: Patient is a 54-year-old woman with a history of stroke, A-fib who supposed to be on Eliquis but she has not been compliant taking the medication for 6 days who presents emergency department because of dysarthria, left-sided weakness and numbness. Patient stated that she forgot to take the Eliquis for the last 6 days. And then symptoms began yesterday around 240 with slurring the speech with weakness of the left side and numbness. It seems that she notified the ED physician that she had worsening weakness and numbness but to me she stated that she had an old stroke and her symptoms were completely resolved and now she has worsening left-sided weakness and numbness including the face left-sided numbness. She does have underlying history of diabetes. She has underlying history of hypertension but is controlled with diet. She denies any tobacco use. She rarely drinks alcohol and she has a medical marijuana. Some of the workup during this hospital visit consisted of: I reviewed the lab workup CT of the head is reported as no acute intracranial process or significant alteration from the prior examination. Stable appearing presumed incidental large. Vascular space in the inferior left basal ganglia. I personally reviewed the CT of the head and I agree there is no acute or subacute ischemia. CT angiography of the head and neck is reported as no hemodynamically significant stenosis or large vessel occlusion. Review of Systems As per HPI. Past Medical History Past Medical History: Asthma, Chest Pain / Angina, CVA/TIA, Diabetes Mellitus, Deep Vein Thrombosis (DVT), Fibromyalgia, GERD/Reflux, Hyperlipidemia, Hypertension, Liver Disease, Myocardial Infarction (PA), Pulmonary Embolus (PE) Additional Past Medical History / Comment(s): fibomyalgia, light weakness on left after stroke coming back. mild PA from EKG unknown time. blood in stools. non alcoholic fatty liver,, diverticulosis. Last Myocardial Infarction Date:: unk History of Any Multi-Drug Resistant Organisms: C-DIFF Date of last positivie culture/infection: 2019 MDRO Source:: stool Past Surgical History: Appendectomy, Cholecystectomy, Hysterectomy, Orthopedic Surgery, Tonsillectomy Additional Past Surgical History / Comment(s): left knee replaced. left rotator cuff repair . rt hip stretched bursa. colonoscopies, laproscopic surgery to remove abdominal adhesions, left femur sx Past Anesthesia/Blood Transfusion Reactions: Postoperative Nausea & Vomiting (PONV) Additional Past Anesthesia/Blood Transfusion Reaction / Comment(s): with lap procedure had a hard time waking up. Past Psychological History: Bipolar, Depression Smoking Status: Never smoker Past Alcohol Use History: None Reported Past Drug Use History: None Reported - Past Family History Mother Family Medical History: Cancer Additional Family Medical History / Comment(s): uterine Father Family Medical History: Cancer Additional Family Medical History / Comment(s): lung Medications and Allergies Home Medications Medication Instructions Recorded Confirmed Type Albuterol Sulfate [Albuterol 2 puff INHALATION RT-Q6H PRN 11/15/22 03/26/25 History Sulfate Hfa] Apixaban [Eliquis] 5 mg PO BID 11/15/22 03/26/25 History Insulin Aspart [NovoLOG Flexpen] See Protocol SQ TID-W/MEALS 11/15/22 03/26/25 History Montelukast Sodium [Singulair] 10 mg PO HS 11/15/22 03/26/25 History Ranolazine [Ranexa] 500 mg PO BID 11/28/23 03/26/25 History Isosorbide Mononitrate ER [Imdur] 60 mg PO DAILY 12/19/23 03/26/25 History traZODone HCL [Desyrel] 50 mg PO HS PRN #30 tab 12/20/23 03/26/25 Rx Insulin Degludec [Tresiba 44 units SQ DAILY 03/15/24 03/26/25 History Flextouch U-100 Pen] Fluticasone Propion/Salmeterol 1 puff INHALATION RT-BID PRN 06/06/24 03/26/25 History [Advair 100-50 Diskus] Insulin Aspart [NovoLOG Flexpen] 17 units SQ TID-W/MEALS 06/06/24 03/26/25 History Radley Carbonate 300 mg PO BID 08/25/24 03/26/25 History clonazePAM [KlonoPIN] 0.5 mg PO DAILY 08/25/24 03/26/25 History dilTIAZem HCL [Tiazac] 180 mg PO HS 08/25/24 03/26/25 History Magnesium Oxide [Magox 400] 400 mg PO DAILY 12/11/24 03/26/25 History ARIPiprazole [Abilify] 15 mg PO HS 03/26/25 03/26/25 History Allergies Allergy/AdvReac Type Severity Reaction Status Date / Time adhesive Allergy red skin - Verified 03/26/25 07:57 paper tape OK trimethobenzamide Allergy Rash/Hives Verified 03/26/25 07:57 [From [facility]] vancomycin Allergy Rash/Hives Verified 03/26/25 07:57 Physical Examination - Vital Signs Vital Signs: Vital Signs Temp Pulse Resp BP Pulse Ox 03/26/25 14:00 63 18 132/57 95 03/26/25 13:00 97.8 F 69 18 102/49 98 03/26/25 09:39 70 18 128/63 98 03/26/25 08:00 98.7 F 64 18 126/55 98 03/26/25 06:05 67 17 146/48 95 03/26/25 05:35 84 17 149/54 95 03/26/25 05:05 75 17 140/48 96 03/26/25 04:50 71 17 156/66 97 03/26/25 04:29 80 20 158/60 96 03/26/25 04:20 78 19 162/74 97 03/26/25 04:05 80 19 160/65 95 03/26/25 03:55 82 20 151/54 95 03/26/25 03:44 86 24 133/66 95 03/26/25 03:30 80 16 147/71 95 03/26/25 03:18 98.2 F 85 17 142/72 95 Intake and Output 03/25/25 03/26/25 03/26/25 22:59 06:59 14:59 Output Total 700 Balance -700 Output: Urine 700 Other: Weight 108.862 kg GENERAL: The patient is lying in bed and is not in acute distress. NEUROLOGICAL: Higher mental function: The patient is awake, alert, oriented to self, place and time. Patient is following commands. No aphasia and no neglect. Cranial nerves: The pupils are round, equal and reactive to light and accommodation. Visual alexander are full to confrontation throughout. Extraocular movement is intact no nystagmus is noted. Facial sensation is normal to touch throughout. The facial strength is normal throughout. Hearing is normal bilaterally to hand rub. Tongue is midline and moved [id number] without any difficulty. Had ?dysarthria with stuttering but is not consistent. Shoulder shrug is normal bilaterally. Motor: The strength is strength patient had strength of 4+ over the upper and the lower had 3-4 symmetrically but patient kept on saying that the left side was weaker and I felt there is effort related on examination. Normal tone and bulk. Cerebellum: Normal finger to nose bilaterally. Sensation: Sensation is normal to touch throughout. Reflexes (right/left): 2+ throughout. Plantars are downgoing bilaterally. Results - Laboratory Findings CBC and BMP: 03/26/25 04:01 03/26/25 04:01 Abnormal Lab Findings: Abnormal Labs 03/26/25 03/26/25 03/26/25 03:37 04:01 04:01 PT 9.9 L Glucose 190 H POC Glucose (mg/dL) 262 H Total Protein 6.0 L 03/26/25 12:16 PT Glucose POC Glucose (mg/dL) 150 H Total Protein Assessment and Plan Assessment: This is a 54-year-old woman with a history of stroke, atrial fibrillation and is supposed to be on Eliquis but patient has missed 6 days of Eliquis since she forgot to take the medication, diabetes mellitus, hypertension that is controlled who presents the emergency department because of her dysarthria, left-sided weakness and numbness that is acute. Acute dysarthria with left-sided weakness and numbness: On my examination I felt was inconsistent and she had poor effort. Rule out acute ischemic stroke especially with her risk factors and her being noncompliant with her medication. Hypertension History of atrial fibrillation and she missed her Eliquis for the last 6 days History of diabetes mellitus History of stroke Hypertension uncontrolled with diet Plan: Patient was given aspirin 325 once then was started on aspirin 325 daily. Patient was also started on Lipitor 80 mg nightly for secondary stroke prophylaxis by the ED team. I ordered MRI of the brain. Regarding the use of Eliquis I will defer that management to the primary team. If possible to hold off until we obtain MRI but if it is felt the benefit outweighed the risk then to resume. I ordered 2D echo and lipid panel. Continue neurochecks Cardiac monitoring PT OT and REHAB TECH are consulted Will defer the rest of the medical management to primary and other specialist For DVT prophylaxis I started the patient on subcu heparin 5000 units every 12 hours. If Eliquis is resumed then discontinue subcu heparin. Thank you for the consultation. Time with Patient: Greater than 30
[2025-03-26 16:52] LABS: Glucose,Whole Blood 101 mg/dL (70-110)
[2025-03-26] MEDS ORDERED: DEXTROSE 50% SYRINGE 50 ML IVP PRN ×2 (16:57)
[2025-03-26] MEDS: INSULIN GLARGINE (LANTUS) 100 UNIT/ML SYR SQ STA (17:27)
[2025-03-26] MEDS: SYMBICORT 80-4.5 MCG INHALER INHALATION SCH (19:27)
--- NOTE | 2025-03-26 19:38 | P.HPIM ---
History of Present Illness H&P Date: 03/26/25 Chief Complaint: Left-sided weakness Patient is a 54-year-old female with a past medical history of CVA with minimal residual left-sided weakness, atrial fibrillation on anticoagulation with Eliquis, diabetes type 2 insulin-dependent, history of DVT, hypertension, hyperlipidemia, history of TN, fibromyalgia, bipolar/depression and osteoarthritis. Patient presents to ER with complaints of slurred speech and left-sided weakness started around 2:40 AM this morning. Patient was noted to have left-sided facial droop and numbness. Also complains of headache. Patient was trying to sleep at the time. Denied any complaints of palpitations. No complaints of chest pain or shortness of breath. Currently patient has not been taking Eliquis for the past 5 days since she has been busy with other works. Denies any recent illnesses. No fever or chills. No leg swelling. CT head on admission showed no acute intracranial process or significant alteration from the prior examination. Stable appearing presumed incidental enlarged perivascular space in the inferior left basal ganglia. Chest x-ray showed no acute cardiopulmonary process or significant alteration from the prior exam. CT angiogram of the head and neck showed no hemodynamically significant stenosis. EKG showed sinus rhythm with heart rate 84 Laboratory data showed WBC 5.2 hemoglobin 13.6 and platelets 222 INR 0.9 sodium 139 potassium 3.8 chloride 105 bicarb 26 BUN 12 and creatinine 0.59 and blood sugar 190 livernot elevated troponin x 1 negative and albumin 3.6. Review of Systems Constitutional: Patient denies any fever or chills . No generalized weakness or weight loss. Abdomen: Patient denied nausea vomiting and diarrhea and abdominal pain. Cardiovascular: Patient denies any chest pain or short of breath no palpitations. Respiratory: patient denied any cough or sputum production. No shortness of breath Neurologic: Patient denied any numbness or tingling. Did have a headache. Left-sided weakness and facial numbness. Musculoskeletal: Patient denies any complaints of joint swelling or deformity. Skin: Negative Psychiatric: Negative Endocrine: No heat or cold intolerance. No recent weight gain. Genitourinary: No dysuria or hematuria. All other 14 point ROS negative except the above Past Medical History Past Medical History: Asthma, Chest Pain / Angina, CVA/TIA, Diabetes Mellitus, Deep Vein Thrombosis (DVT), Fibromyalgia, GERD/Reflux, Hyperlipidemia, Hypertension, Liver Disease, Myocardial Infarction (TN), Pulmonary Embolus (PE) Additional Past Medical History / Comment(s): fibomyalgia, light weakness on left after stroke coming back. mild TN from EKG unknown time. blood in stools. non alcoholic fatty liver,, diverticulosis. Last Myocardial Infarction Date:: unk History of Any Multi-Drug Resistant Organisms: C-DIFF Date of last positivie culture/infection: 2019 MDRO Source:: stool Past Surgical History: Appendectomy, Cholecystectomy, Hysterectomy, Orthopedic Surgery, Tonsillectomy Additional Past Surgical History / Comment(s): left knee replaced. left rotator cuff repair . rt hip stretched bursa. colonoscopies, laproscopic surgery to remove abdominal adhesions, left femur sx Past Anesthesia/Blood Transfusion Reactions: Postoperative Nausea & Vomiting (PONV) Additional Past Anesthesia/Blood Transfusion Reaction / Comment(s): with lap procedure had a hard time waking up. Past Psychological History: Bipolar, Depression Smoking Status: Never smoker Past Alcohol Use History: None Reported Past Drug Use History: None Reported - Past Family History Mother Family Medical History: Cancer Additional Family Medical History / Comment(s): uterine Father Family Medical History: Cancer Additional Family Medical History / Comment(s): lung Medications and Allergies Home Medications Medication Instructions Recorded Confirmed Type Albuterol Sulfate [Albuterol 2 puff INHALATION RT-Q6H PRN 11/15/22 03/26/25 History Sulfate Hfa] Apixaban [Eliquis] 5 mg PO BID 11/15/22 03/26/25 History Insulin Aspart [NovoLOG Flexpen] See Protocol SQ TID-W/MEALS 11/15/22 03/26/25 History Montelukast Sodium [Singulair] 10 mg PO HS 11/15/22 03/26/25 History Ranolazine [Ranexa] 500 mg PO BID 11/28/23 03/26/25 History Isosorbide Mononitrate ER [Imdur] 60 mg PO DAILY 12/19/23 03/26/25 History traZODone HCL [Desyrel] 50 mg PO HS PRN #30 tab 12/20/23 03/26/25 Rx Insulin Degludec [Tresiba 44 units SQ DAILY 03/15/24 03/26/25 History Flextouch U-100 Pen] Fluticasone Propion/Salmeterol 1 puff INHALATION RT-BID PRN 06/06/24 03/26/25 History [Advair 100-50 Diskus] Insulin Aspart [NovoLOG Flexpen] 17 units SQ TID-W/MEALS 06/06/24 03/26/25 History Kenney Carbonate 300 mg PO BID 08/25/24 03/26/25 History clonazePAM [KlonoPIN] 0.5 mg PO DAILY 08/25/24 03/26/25 History dilTIAZem HCL [Tiazac] 180 mg PO HS 08/25/24 03/26/25 History Magnesium Oxide [Magox 400] 400 mg PO DAILY 12/11/24 03/26/25 History ARIPiprazole [Abilify] 15 mg PO HS 03/26/25 03/26/25 History Allergies Allergy/AdvReac Type Severity Reaction Status Date / Time adhesive Allergy red skin - Verified 03/26/25 07:57 paper tape OK trimethobenzamide Allergy Rash/Hives Verified 03/26/25 07:57 [From [facility]] vancomycin Allergy Rash/Hives Verified 03/26/25 07:57 Physical Exam Vitals: Vital Signs Temp Pulse Resp BP Pulse Ox 03/26/25 09:39 70 18 128/63 98 03/26/25 08:00 98.7 F 64 18 126/55 98 03/26/25 06:05 67 17 146/48 95 03/26/25 05:35 84 17 149/54 95 03/26/25 05:05 75 17 140/48 96 03/26/25 04:50 71 17 156/66 97 03/26/25 04:29 80 20 158/60 96 03/26/25 04:20 78 19 162/74 97 03/26/25 04:05 80 19 160/65 95 03/26/25 03:55 82 20 151/54 95 03/26/25 03:44 86 24 133/66 95 03/26/25 03:30 80 16 147/71 95 03/26/25 03:18 98.2 F 85 17 142/72 95 Intake and Output 03/25/25 03/26/25 03/26/25 22:59 06:59 14:59 Output Total 700 Balance -700 Output: Urine 700 Other: Weight 108.862 kg PHYSICAL EXAMINATION: Patient is lying in the bed comfortably, no acute distress, awake alert and oriented.. HEENT: Normocephalic. Neck is supple. Pupils reactive. Nostrils clear. Oral cavity is moist. Neck reveals no JVD, carotid bruits, or thyromegaly. CHEST EXAMINATION: Trachea is central. Symmetrical expansion. Lung alexander clear to auscultation and percussion. CARDIAC: Normal S1, S2 with no gallops. No murmurs ABDOMEN: Soft. Bowel sounds normal. No organomegaly. No abdominal bruits. Extremities: reveal no edema. No clubbing or cyanosis Neurologically awake, alert, oriented x3 patient does have left-sided weakness and left facial loss of nasolabial fold.. Skin: No rash or skin lesions. Psychiatric: Coperative. Nonsuicidal Musculoskeletal: No joint swelling or deformity. Normal range of motion. Results CBC & Chem 7: 03/26/25 04:01 03/26/25 04:01 Labs: Abnormal Lab Results - Last 24 Hours (Table) 03/26/25 03/26/25 03/26/25 Range/Units 03:37 04:01 04:01 PT 9.9 L (10.0-12.5) sec Glucose 190 H (74-99) mg/dL POC Glucose (mg/dL) 262 H (70-110) mg/dL Total Protein 6.0 L (6.3-8.2) g/dL Thrombosis Risk Factor Assmnt - DVT/VTE Prophylaxis DVT/VTE Prophylaxis: Pharmacologic Prophylaxis ordered Assessment and Plan Assessment: Acute left sided weakness, slurred speech and facial numbness likely due to acute CVA Prior history of CVA/TIA and history of tPA Paroxysmal atrial fibrillation on anticoagulation with Eliquis which she initially 5 days prior to admission Diabetes type 2 insulin-dependent, uncontrolled with hyperglycemia Hypertension Obesity with BMI 39.9 History of DVT/PE Fibromyalgia Depression/bipolar disorder Osteoarthritis DVT prophylaxis with heparin subcu Plan: Patient will be continued on telemonitoring. Continue with neurochecks. Continue with aspirin and statins. Patient had workup including CT head and CT angiogram of the head and neck was done. Ordered A1c level. Continue with Cardizem. Eliquis will be on hold until cleared by neurology. MRI of the brain was ordered. PT OT and STRUCTURAL IRON [employer]OR evaluation. Continue home medications and follow-up closely. Time with Patient: Greater than 30
[2025-03-26] MEDS: MONTELUKAST 10 MG TAB PO SCH (20:16)
[2025-03-26] MEDS: HEPARIN SODIUM,PORCINE 5,000 UNIT/ML 1 ML VIAL SQ SCH (20:16)
[2025-03-26] MEDS: RANOLAZINE 500 MG TAB.ER.12H PO SCH (20:16)
[2025-03-26] MEDS: ATORVASTATIN 80 MG TAB PO SCH (20:16)
[2025-03-26] MEDS: DILTIAZEM CD 180 MG CAP.ER.24H PO SCH (20:16)
[2025-03-26] MEDS: ARIPiprazole 15 MG TAB PO SCH (20:39)
[2025-03-26] MEDS: LITHIUM CARBONATE 300 MG CAP PO SCH (20:39)
[2025-03-26 21:22] LABS: Glucose,Whole Blood 239 mg/dL (70-110)
[2025-03-27 06:37] LABS: Glucose,Whole Blood 209 mg/dL (70-110)
[2025-03-27 07:20] LABS: African American GFR (CKD) >90 (>60 ml/min/1.73 sqM); Anion Gap 5 mmol/L; Blood Urea Nitrogen 12 mg/dL (7-17); Calcium 8.3 mg/dL (8.4-10.2); Carbon Dioxide 24 mmol/L (22-30); Chloride 110 mmol/L (98-107); Glucose 224 mg/dL (74-99); Non-African American GFR(CKD) >90 (>60 ml/min/1.73 sqM); Sodium 139 mmol/L (137-145)
[2025-03-27 07:21] LABS: Potassium 4.7 mmol/L (3.5-5.1)
[2025-03-27] MEDS: ASPIRIN 325 MG TAB PO SCH (08:14)
[2025-03-27] MEDS: MAGNESIUM OXIDE 400 MG TAB PO SCH (08:15)
[2025-03-27] MEDS: ISOSORBIDE MONONITRATE ER 60 MG TAB.ER.24H PO SCH (08:15)
[2025-03-27 10:45] LABS: Chol/HDL Ratio 3.52 Ratio; VLDL Calculation 14.54 mg/dL (5.00-40.00)
--- NOTE | 2025-03-27 10:51 | CA ---
Transthoracic Echo Report Name: Aurora Tsai Age: 54 Gender: F : 1970 Exam Date: 03/27/2025 08:26 Exam Location: [facility] Ht (in): 65 Wt (lb): 240 Ordering Physician: Declan Becker MD Attending/Referring Phys: [employer] Operator Chanell Escamilla RDCS Procedure CPT: Indications: CVA Cardiac Hx: Technical Quality: Good Contrast 1: Agitated Saline Total Dose (mL): 10 Contrast 2: Total Dose (mL): MEASUREMENTS (Male / Female) Normal Values 2D ECHO LV Diastolic Diameter PLAX 5.2 cm 4.2 - 5.9 / 3.9 - 5.3 cm LV Systolic Diameter PLAX 3.5 cm IVS Diastolic Thickness 1.1 cm 0.6 - 1.0 / 0.6 - 0.9 cm LVPW Diastolic Thickness 1.1 cm 0.6 - 1.0 / 0.6 - 0.9 cm LV Relative Wall Thickness 0.4 LVOT Diameter 2.0 cm LV Diastolic Volume MOD BP 98.9 cm??? 67 - 155 / 56 - 104 cm??? LV Systolic Volume MOD BP 40.3 cm??? 22 - 58 / 19 - 49 cm??? LV Ejection Fraction MOD BP 59.2 % >= 55 % LV Cardiac Index MOD BP 1766.4 cm???/min???m??? LV Diastolic Volume MOD 4C 98.9 cm??? LV Systolic Volume MOD 4C 41.2 cm??? LV Ejection Fraction MOD 4C 58.3 % LV Cardiac Index MOD 4C 1738.3 cm???/min???m??? LV Diastolic Length 4C 8.3 cm LV Systolic Length 4C 7.3 cm LV Diastolic Volume MOD 2C 90.9 cm??? LV Systolic Volume MOD 2C 35.4 cm??? LV Ejection Fraction MOD 2C 61.0 % LV Cardiac Index MOD 2C 1671.8 cm???/min???m??? LV Diastolic Length 2C 7.6 cm LV Systolic Length 2C 6.6 cm LA Volume 50.7 cm??? 18 - 58 / 22 - 52 cm??? LA Volume Index 22.2 cm???/m??? 16 - 28 cm???/m??? Ascending Aorta Diameter 2.9 cm DOPPLER AV Peak Velocity 148.8 cm/s AV Peak Gradient 8.9 mmHg AV Mean Velocity 102.5 cm/s AV Mean Gradient 4.7 mmHg AV Velocity Time Integral 35.9 cm LVOT Peak Velocity 115.8 cm/s LVOT Peak Gradient 5.4 mmHg LVOT Velocity Time Integral 28.6 cm LVOT Stroke Volume 87.9 cm??? LVOT Stroke Volume Index 41.1 ml/m??? LVOT Cardiac Index 2651.3 cm???/min???m??? AV Area Cont Eq vti 2.4 cm??? AV Area Cont Eq pk 2.4 cm??? MV Area PHT 4.6 cm??? Mitral E Point Velocity 97.8 cm/s Mitral A Point Velocity 68.0 cm/s Mitral E to A Ratio 1.4 MV Deceleration Time 163.9 ms PV Peak Velocity 87.0 cm/s PV Peak Gradient 3.0 mmHg FINDINGS Left Ventricle Left ventricular ejection fraction is estimated at 55-60 %. Mildly increased septal wall thickness. Mildly increased posterior wall thickness. Left ventricular cavity size normal. No obvious regional wall motion abnormalities. Right Ventricle Normal right ventricular size and function. Unable to estimate the right ventricular systolic pressure. Right Atrium Normal right atrial size. Negative agitated saline bubble study for right to left shunt. Left Atrium Normal left atrial size. Mitral Valve Structurally normal mitral valve. No evidence for mitral valve prolapse. No mitral stenosis. Trace to mild mitral regurgitation. Aortic Valve Trileaflet aortic valve. No aortic valve stenosis or regurgitation. Tricuspid Valve Structurally normal tricuspid valve. No tricuspid stenosis. Trace tricuspid regurgitation. Pulmonic Valve Structurally normal pulmonic valve. No pulmonic stenosis. Trace pulmonic regurgitation. Pericardium No pericardial effusion. Aorta Normal size aortic root and proximal ascending aorta. CONCLUSIONS Normal LV size and systolic function. Minimal mitral and tricuspid regurgitation. No pericardial effusion. Right-sided pressures are not well quantified. Probably normal Previewed by: Dr. Laurie Barfield MD (Electronically Signed) Final Date: 27 Mar 2025 10:50
[2025-03-27 11:51] LABS: Glucose,Whole Blood 264 mg/dL (70-110)
[2025-03-27] MEDS: methocarbamoL 500 MG TAB PO PRN (11:53)
--- NOTE | 2025-03-27 14:29 | CT ---
EXAMINATION TYPE: CT brain wo con DATE OF EXAM: 03/27/2025 COMPARISON: 08/25/2024 CLINICAL INDICATION: Female, 54 years old with history of repeat; PHH, f/u cva CT DLP: 1194.4 mGycm Automated exposure control for dose reduction was used. Findings: The ventricles, basal cisterns and sulci over the convexities are within normal limits and there is n o mass effect or shift of midline structures. There is a stable prominent perivascular near the left anterior commissure. There is minimal left bas al ganglial calcification. There is no acute intra or extra-axial hemorrhage. The posterior fossa including the brainstem, fourth ventricle and cerebellar pontine angles appear no rmal. Intraorbital contents appear normal and symmetric. Visualized paranasal sinuses and mastoid air cells are well aerated. The calvarium is intact. IMPRESSION: No acute bleed or mass effect. No significant interval change. [facility], , 03/27/2025 2:27 PM
--- NOTE | 2025-03-27 14:53 | P.PN ---
Subjective Progress Note Date: 03/27/25 I am following with the patient and patient continues to have speech difficulty as well as weakness and according to the patient nurse as well as the patient she was able to walk with physical therapy with some help. Objective - Vital Signs Vital signs: Vital Signs Temp 98.0 F 03/27/25 08:00 Pulse 66 03/27/25 11:30 Resp 16 03/27/25 11:30 BP 134/67 03/27/25 11:30 Pulse Ox 96 03/27/25 11:30 FiO2 Intake & Output 03/26/25 03/27/25 03/27/25 18:59 06:59 18:59 Intake Total 236 Output Total 700 500 Balance -700 -264 Weight 124 kg Intake: Oral 236 Output: Urine 700 500 Other: Voiding Method External Catheter External Catheter - Exam GENERAL: The patient is sitting in a chair and is not in acute distress. NEUROLOGICAL: Higher mental function: The patient is awake, alert, oriented to self, place and time. Patient is following commands. No aphasia and no neglect. Cranial nerves: The pupils are round, equal and reactive to light and accommodation. Visual alexander are full to confrontation throughout. Extraocular movement is intact no nystagmus is noted. Facial sensation is normal to touch throughout. The facial strength is normal throughout. Hearing is normal bilaterally to hand rub. Tongue is midline and moved [id number] without any difficulty. Had ?dysarthria with stuttering but is not consistent. Shoulder shrug is normal bilaterally. Motor: The strength is strength patient had strength of the side is 5/5 but left is3/5 but improves with motivation. Normal tone and bulk. Cerebellum: Normal finger to nose bilaterally. Sensation: Sensation is normal to touch throughout. Reflexes (right/left): 2+ throughout. Plantars are downgoing bilaterally. Some of the workup during this hospital visit consisted of: I reviewed the lab workup CT of the head is reported as no acute intracranial process or significant alteration from the prior examination. Stable appearing presumed incidental large. Vascular space in the inferior left basal ganglia. I personally reviewed the CT of the head and I agree there is no acute or subacute ischemia. CT angiography of the head and neck is reported as no hemodynamically significant stenosis or large vessel occlusion. 2D echo: Normal left ventricular size systolic function. - Labs CBC & Chem 7: 03/26/25 04:01 03/27/25 06:38 Labs: Abnormal Lab Results - Last 24 Hours (Table) 03/26/25 03/27/25 03/27/25 Range/Units 21:21 06:35 06:38 Chloride (98-107) mmol/L Glucose (74-99) mg/dL POC Glucose (mg/dL) 239 H 209 H (70-110) mg/dL Hemoglobin A1c 7.5 H (<=6.0) % Calcium (8.4-10.2) mg/dL 03/27/25 03/27/25 Range/Units 06:38 11:49 Chloride 110 H (98-107) mmol/L Glucose 224 H (74-99) mg/dL POC Glucose (mg/dL) 264 H (70-110) mg/dL Hemoglobin A1c (<=6.0) % Calcium 8.3 L (8.4-10.2) mg/dL Assessment and Plan Assessment: This is a 54-year-old woman with a history of stroke, atrial fibrillation and is supposed to be on Eliquis but patient has missed 6 days of Eliquis since she forgot to take the medication, diabetes mellitus, hypertension that is controlled who presents the emergency department because of her dysarthria, left-sided weakness and numbness that is acute. Acute dysarthria with left-sided weakness and numbness: Again, On my examination I felt was inconsistent and she had poor effort. Rule out acute ischemic stroke especially with her risk factors and her being noncompliant with her medication but cannot rule out functional neurological disorder. Hypertension History of atrial fibrillation and she missed her Eliquis for the last 6 days History of diabetes mellitus History of stroke Hypertension uncontrolled with diet Plan: Patient was given aspirin 325 once then was started on aspirin 325 daily. Patient was also started on Lipitor 80 mg nightly for secondary stroke prophylaxis by the ED team. Pending MRI of the brain and was notified to be completed tomorrow. In the meantime we will get a repeat CT of the head and if it is negative for any acute or subacute stroke then recommend resuming her home Eliquis. Continue neurochecks Cardiac monitoring PT OT and COGNOS REPORT DEVELOPER are consulted Will defer the rest of the medical management to primary and other specialist For DVT prophylaxis On subcu heparin 5000 units every 12 hours. If Eliquis is resumed then discontinue subcu heparin. The plan is discussed with her nurse. Time with Patient: Less than 30
--- NOTE | 2025-03-27 15:14 | P.CONS ---
History of Present Illness - Reason for Consult Consult date: 03/27/25 rehab recommendations - Chief Complaint possible CVA - History of Present Illness Ms Tsai is a 54 y/o right handed single female who lives with a roommate in a trailer home with 3 NATALIE. Prior to admission, patient was independent with mobility and ADLs. Roommate helps with transportation as she does not have a vehicle. She presented to the hospital with symptoms including slurred speech and weakness worsening left-sided weakness from her baseline as she has an old CVA. Patient is on Eliquis for A-fib has not taken her Eliquis in 6 days. She has a past medical history of CVA with minimal residual left-sided weakness, atrial fibrillation on anticoagulation with Eliquis, diabetes type 2 insulin-dependent, history of DVT, hypertension, hyperlipidemia, history of [place], fibromyalgia, bipol ar/depression and osteoarthritis. CT head on admission showed no acute intracranial process or significant alteration from the prior examination. Stable appearing presumed incidental enlarged perivascular space in the inferior left basal ganglia. Neurology felt no acute or subacute infarct. Chest x-ray showed no acute cardiopulmonary process or significant alteration from the prior exam. CT angiogram of the head and neck showed no hemodynamically significant stenosis. EKG showed sinus rhythm with heart rate 84. Laboratory data showed WBC 5.2 hemoglobin 13.6 and platelets 222 INR 0.9 sodium 139 potassium 3.8 chloride 105 bicarb 26 BUN 12 and creatinine 0.59, troponin x 1 negative and albumin 3.6. Neurology consulted. MRI brain was ordered and eliquis recommended to be held until MRI complete. PM&R consulted for rehab recommendations. Patient has been evaluated by PT and OT, CERTIFIED MEDICAL DOSIMETRIST pending; needing min assist with bed mobility and gait 50 ft with SBQC, Min assist with ADLs. 03/27/25: Patient states she is weak on her left side arm and leg, has numbness and tingling on the left side of her face,left arm and leg. She reports a history of HAs and blurred vision. Reports she was told she now has problems with her Peripheral vision since this admission. Left leg feels heavy. She denie s issues with bowel and bladder, BM in the am. Review of Systems ROS: As above per HPI Past Medical History Past Medical History: Asthma, Chest Pain / Angina, CVA/TIA, Diabetes Mellitus, Deep Vein Thrombosis (DVT), Fibromyalgia, GERD/Reflux, Hyperlipidemia, Hypertension, Liver Disease, Myocardial Infarction ([place]), Pulmonary Embolus ([place]) Additional Past Medical History / Comment(s): fibomyalgia, light weakness on left after stroke coming back. mild [place] from EKG unknown time. blood in stools. non alcoholic fatty liver,, diverticulosis. Last Myocardial Infarction Date:: unk History of Any Multi-Drug Resistant Organisms: C-DIFF Year Discovered:: 2019 MDRO Source:: stool Past Surgical History: Appendectomy, Cholecystectomy, Hysterectomy, Orthopedic Surgery, Tonsillectomy Additional Past Surgical History / Comment(s): left knee replaced. left rotator cuff repair . rt hip stretched bursa. colonoscopies, laproscopic surgery to remove abdominal adhesions, left femur sx Past Anesthesia/Blood Transfusion Reactions: Postoperative Nausea & Vomiting (PONV) Additional Past Anesthesia/Blood Transfusion Reaction / Comm: with lap procedure had a hard time waking up. Past Psychological History: Bipolar, Depression Smoking Status: Never smoker Past Alcohol Use History: None Reported Past Drug Use History: None Reported Additional Drug Use History / Comment(s): marijuana vape pen. pt aware not to use 24 hrs before procedure. - Past Family History Mother Family Medical History: Cancer Additional Family Medical History / Comment(s): uterine Father Family Medical History: Cancer Additional Family Medical History / Comment(s): lung Medications and Allergies Home Medications Medication Instructions Recorded Confirmed Type Albuterol Sulfate [Albuterol 2 puff INHALATION RT-Q6H PRN 11/15/22 03/26/25 History Sulfate Hfa] Apixaban [Eliquis] 5 mg PO BID 11/15/22 03/26/25 History Insulin Aspart [NovoLOG Flexpen] See Protocol SQ TID-W/MEALS 11/15/22 03/26/25 History Montelukast Sodium [Singulair] 10 mg PO HS 11/15/22 03/26/25 History Ranolazine [Ranexa] 500 mg PO BID 11/28/23 03/26/25 History Isosorbide Mononitrate ER [Imdur] 60 mg PO DAILY 12/19/23 03/26/25 History traZODone HCL [Desyrel] 50 mg PO HS PRN #30 tab 12/20/23 03/26/25 Rx Insulin Degludec [Tresiba 44 units SQ DAILY 03/15/24 03/26/25 History Flextouch U-100 Pen] Fluticasone Propion/Salmeterol 1 puff INHALATION RT-BID PRN 06/06/24 03/26/25 History [Advair 100-50 Diskus] Insulin Aspart [NovoLOG Flexpen] 17 units SQ TID-W/MEALS 06/06/24 03/26/25 History [place] Carbonate 300 mg PO BID 08/25/24 03/26/25 History clonazePAM [KlonoPIN] 0.5 mg PO DAILY 08/25/24 03/26/25 History dilTIAZem HCL [Tiazac] 180 mg PO HS 08/25/24 03/26/25 History Magnesium Oxide [Magox 400] 400 mg PO DAILY 12/11/24 03/26/25 History ARIPiprazole [Abilify] 15 mg PO HS 03/26/25 03/26/25 History Allergies Allergy/AdvReac Type Severity Reaction Status Date / Time adhesive Allergy red skin - Verified 03/26/25 07:57 paper tape OK trimethobenzamide Allergy Rash/Hives Verified 03/26/25 07:57 [From [facility]] vancomycin Allergy Rash/Hives Verified 03/26/25 07:57 Physical Exam Vitals: Vital Signs Temp Pulse Pulse Resp BP BP Pulse Ox 03/27/25 11:30 66 66 16 134/67 134/67 96 03/27/25 08:00 98.0 F 68 16 106/50 98 03/27/25 03:57 98.1 F 63 18 141/76 97 03/26/25 23:17 81 18 125/63 94 L 03/26/25 21:29 98.1 F 73 18 137/72 93 L 03/26/25 20:23 79 16 133/49 98 03/26/25 18:20 97.8 F 75 20 129/50 96 03/26/25 17:01 68 18 127/54 96 03/26/25 14:00 63 18 132/57 95 03/26/25 13:00 97.8 F 69 18 102/49 98 Intake and Output 03/26/25 03/27/25 03/27/25 22:59 06:59 14:59 Intake Total 118 Output Total 400 300 500 Balance -400 -300 -382 Intake: Oral 118 Output: Urine 400 300 500 Other: Voiding Method External Catheter External Catheter External Catheter Weight 108.862 kg 124 kg General: WDWN obese female, laying in bed, alert, NAD HEENT: head normocephalic, atraumatic; moist mucous membranes, external ears intact with hearing intact to conversational speech, glasses on CV: monitor tech on, no acute cardiac distress Lungs: Even and non labored respirations on RA Abdomen: soft,tender per patient-chronic MSK: full PROM bilateral UE and LEs, Full AROM of RUE, limited left sided ROM self limiting vs weakness. MMT: RUE/RLE 5/5; Left UE and LE with ratchet like giveaway during exam, improves with distraction, L SABD 3-/5, EE/EE 3+/5, HG 1-2/5; LLE HF 3-/5, KE 4/5, DF and EHL 4/5 Neuro: Alert, oriented x 4, speech clearer at beginning of exam, becomes slurred and robotic like as encounter progresses MSR: 2/4 bilateral biceps, triceps, brachioradialis, patella, Achilles, no clonus CN 2-12 grossly intact except for CNVII left sided Sensation intact to light touch R UE and LE, patient reports decreased sensation to light touch left UE and LE. Coordination: FTN and HTS impaired on left side, poor effort Psych: mood calm, affect appropriate, A&O x 4 Extremities: calves supple, non tender, no LE edema Skin: intact where exposed Results CBC & Chem 7: 03/26/25 04:01 03/27/25 06:38 Labs: Abnormal Lab Results - Last 24 Hours (Table) 03/26/25 03/27/25 03/27/25 Range/Units 21:21 06:35 06:38 Chloride (98-107) mmol/L Glucose (74-99) mg/dL POC Glucose (mg/dL) 239 H 209 H (70-110) mg/dL Hemoglobin A1c 7.5 H (<=6.0) % Calcium (8.4-10.2) mg/dL 03/27/25 03/27/25 Range/Units 06:38 11:49 Chloride 110 H (98-107) mmol/L Glucose 224 H (74-99) mg/dL POC Glucose (mg/dL) 264 H (70-110) mg/dL Hemoglobin A1c (<=6.0) % Calcium 8.3 L (8.4-10.2) mg/dL Assessment and Plan Assessment: # Acute left sided weakness, slurred speech and facial numbness likely due to acute CVA -MRI pending -therapies, CERTIFIED MEDICAL DOSIMETRIST evaluation pending. -03/27 patient's left sided weakness with ratchet like giveaway improves with distraction #Dysarthria -03/27 patient's speech becomes more " robotic" throughout exam with intermittent slurring. #Prior history of CVA/TIA and history of tPA #Paroxysmal atrial fibrillation on anticoagulation with Eliquis -patient had not taken Eliquis approx 5-6 days prior #Diabetes type 2 insulin-dependent, uncontrolled with hyperglycemia #Hypertension #Obesity with BMI 39.9 #History of DVT/PE -ASA, Sub Q heparin #Comorbidities: Fibromyalgia, Depression/bipolar disorder-lithium, abilify, Osteoarthritis #DVT prophylaxis with heparin subcu Dispo: Patient is noted to be below baseline function, Would recommend MRI brain to correlate with exam findings. Patient is inconsistent at times, symptoms may be related more to TIA vs psychosocial aspects. If CVA confirmed on MRI, would benefit from a structured Inpatient rehabilitation stay with 3 hrs of therapy a day, 6-7 days a week with Physical Therapy, Occupational Therapy and Speech Therapy (if indicated). Patient has medical complexity requiring nursing servi eloisa, close physician medical management, and interdisciplinary team approach for rehab. Patient is motivated and has good social support. Patient WILL need insurance authorization. [facility] has checked into benefits, patient would have a total of $2650 copay for the first 5 days of IPR if she goes to [facility] IPR. Per Case Management, she would like a referral sent to [facility]. Patient seen and examined in collaboration with Dr Aguirre. Thank you for consulting our services.
[2025-03-27 16:37] LABS: Glucose,Whole Blood 114 mg/dL (70-110)
[2025-03-27 20:07] LABS: Glucose,Whole Blood 204 mg/dL (70-110)
[2025-03-27] MEDS: traZODone HCL 50 MG TAB PO PRN (20:28)
[2025-03-28 06:25] LABS: Glucose,Whole Blood 135 mg/dL (70-110)
[2025-03-28 08:50] LABS: Basophils # (A) 0.03 10*3/uL (0.00-0.10); Basophils % (A) 0.7 %; Eosinophils # (A) 0.15 10*3/uL (0.04-0.35); Eosinophils % (A) 3.5 %; HGB 13.2 g/dL (12.0-15.0); Lymphocytes # (A) 1.03 10*3/uL (0.90-5.00); Lymphocytes % (A) 24.2 %; MCH 29.3 pg (27.0-32.0); MCV 88.9 fL (80.0-97.0); Mean Platelet Volume 9.8 fL (9.5-12.2); Monocytes # (A) 0.27 10*3/uL (0.20-1.00); Monocytes % (A) 6.3 %; Neutrophils # (A) 2.76 10*3/uL (1.80-7.70); Neutrophils % (A) 64.8 %; Platelet Count 211 10*3/uL (140-440); WBC 4.26 10*3/uL (4.50-10.00)
[2025-03-28 09:34] LABS: African American GFR (CKD) >90 (>60 ml/min/1.73 sqM); Anion Gap 7 mmol/L; Blood Urea Nitrogen 8 mg/dL (7-17); Carbon Dioxide 23 mmol/L (22-30); Chloride 108 mmol/L (98-107); Glucose 258 mg/dL (74-99); Non-African American GFR(CKD) >90 (>60 ml/min/1.73 sqM); Sodium 138 mmol/L (137-145)
[2025-03-28] MEDS ORDERED: LORazepam 1 MG/0.5 ML VIAL IV STA (10:12)
[2025-03-28 11:16] LABS: Glucose,Whole Blood 176 mg/dL (70-110)
--- NOTE | 2025-03-28 13:07 | P.PN ---
Subjective Progress Note Date: 03/27/25 Patient is a 54-year-old female with a past medical history of CVA with minimal residual left-sided weakness, atrial fibrillation on anticoagulation with Eliquis, diabetes type 2 insulin-dependent, history of DVT, hypertension, hyperlipidemia, history of [place], fibromyalgia, bipolar/depression and osteoarthr itis. Patient presents to ER with complaints of slurred speech and left-sided weakness started around 2:40 AM this morning. Patient was noted to have left- sided facial droop and numbness. Also complains of headache. Patient was trying to sleep at the time. Denied any complaints of palpitations. No complaints of chest pain or shortness of breath. Currently patient has not been taking Eliquis for the past 5 days since she has been busy with other works. Denies any recent illnesses. No fever or chills. No leg swelling. CT head on admission showed no acute intracranial process or significant alteration from the prior examination. Stable appearing presumed incidental enlarged perivascular space in the inferior left basal ganglia. Chest x-ray showed no acute cardiopulmonary process or significant alteration from the prior exam. CT angiogram of the head and neck showed no hemodynamically significant stenosis. EKG showed sinus rhythm with heart rate 84 Laboratory data showed WBC 5.2 hemoglobin 13.6 and platelets 222 INR 0.9 sodium 139 potassium 3.8 chloride 105 bicarb 26 BUN 12 and creatinine 0.59 and blood sugar 190 livernot elevated troponin x 1 negative and albumin 3.6. 03/27/2025 Patient is sitting in the chair. Awake alert and oriented x 3. Still having left upper arm weakness. Speech is also slurred. No complaints of chest pain or shortness of breath. Patient on room air. No cough or sputum production. Lab data reviewed. LDL 105 BUN 12 creatinine 0.56 and blood sugar 209. Neurology is on board. MRI to be done tomorrow. Objective - Vital Signs Vital signs: Vital Signs Temp 98.2 F 03/27/25 15: Pulse 66 03/27/25 15: Resp 16 03/27/25 15:25 BP 152/68 03/27/25 15:25 Pulse Ox 99 03/27/25 15:25 FiO2 Intake & Output 03/27/25 03/27/25 03/28/25 06:59 18:59 06:59 Intake Total 458 Output Total 700 500 Balance -700 -42 Weight 124 kg Intake: Oral 458 Output: Urine 700 500 Other: Voiding Method External Catheter External Catheter - Exam PHYSICAL EXAMINATION: Patient is lying in the bed comfortably, no acute distress, awake alert and oriented.. HEENT: Normocephalic. Neck is supple. Pupils reactive. Nostrils clear. Oral cavity is moist. Neck reveals no JVD, carotid bruits, or thyromegaly. CHEST EXAMINATION: Trachea is central. Symmetrical expansion. Lung alexander clear to auscultation and percussion. CARDIAC: Normal S1, S2 with no gallops. No murmurs ABDOMEN: Soft. Bowel sounds normal. No organomegaly. No abdominal bruits. Extremities: reveal no edema. No clubbing or cyanosis Neurologically awake, alert, oriented x3 patient does have left upper extremity weakness and slurred speech.. Skin: No rash or skin lesions. Psychiatric: Coperative. Nonsuicidal Musculoskeletal: No joint swelling or deformity. Normal range of motion. - Labs CBC & Chem 7: 03/28/25 08:11 03/28/25 08:11 Labs: Abnormal Lab Results - Last 24 Hours (Table) 03/26/25 03/27/25 03/27/25 Range/Units 21:21 06:35 06:38 Chloride (98-107) mmol/L Glucose (74-99) mg/dL POC Glucose (mg/dL) 239 H 209 H (70-110) mg/dL Hemoglobin A1c 7.5 H (<=6.0) % Calcium (8.4-10.2) mg/dL 03/27/25 03/27/25 03/27/25 Range/Units 06:38 11:49 16:33 Chloride 110 H (98-107) mmol/L Glucose 224 H (74-99) mg/dL POC Glucose (mg/dL) 264 H 114 H (70-110) mg/dL Hemoglobin A1c (<=6.0) % Calcium 8.3 L (8.4-10.2) mg/dL Assessment and Plan Assessment: Acute left sided weakness, slurred speech and facial numbness likely due to acute CVA Prior history of CVA/TIA and history of tPA Paroxysmal atrial fibrillation on anticoagulation with Eliquis which she initially 5 days prior to admission Diabetes type 2 insulin-dependent, uncontrolled with hyperglycemia Hypertension Obesity with BMI 39.9 History of DVT/PE Fibromyalgia Depression/bipolar disorder Osteoarthritis DVT prophylaxis with heparin subcu Plan: Patient will be continued on telemonitoring. Continue with neurochecks. Continue with aspirin and statins. Patient had workup including CT head and CT angiogram of the head and neck was done. A1c 7.5, A1c 7.5 Continue with Cardizem. Eliquis will be on hold until after MRI.. MRI of the brain was ordered. Neurology is on board. PT OT and DRUPAL DEVELOPER evaluation. Continue home medications and follow-up closely. Time with Patient: Greater than 30
--- NOTE | 2025-03-28 13:10 | P.PN ---
Subjective Progress Note Date: 03/28/25 Patient is a 54-year-old female with a past medical history of CVA with minimal residual left-sided weakness, atrial fibrillation on anticoagulation with Eliquis, diabetes type 2 insulin-dependent, history of DVT, hypertension, hyperlipidemia, history of [place], fibromyalgia, bipolar/depression and osteoarthr itis. Patient presents to ER with complaints of slurred speech and left-sided weakness started around 2:40 AM this morning. Patient was noted to have left- sided facial droop and numbness. Also complains of headache. Patient was trying to sleep at the time. Denied any complaints of palpitations. No complaints of chest pain or shortness of breath. Currently patient has not been taking Eliquis for the past 5 days since she has been busy with other works. Denies any recent illnesses. No fever or chills. No leg swelling. CT head on admission showed no acute intracranial process or significant alteration from the prior examination. Stable appearing presumed incidental enlarged perivascular space in the inferior left basal ganglia. Chest x-ray showed no acute cardiopulmonary process or significant alteration from the prior exam. CT angiogram of the head and neck showed no hemodynamically significant stenosis. EKG showed sinus rhythm with heart rate 84 Laboratory data showed WBC 5.2 hemoglobin 13.6 and platelets 222 INR 0.9 sodium 139 potassium 3.8 chloride 105 bicarb 26 BUN 12 and creatinine 0.59 and blood sugar 190 livernot elevated troponin x 1 negative and albumin 3.6. 03/27/2025 Patient is sitting in the chair. Awake alert and oriented x 3. Still having left upper arm weakness. Speech is also slurred. No complaints of chest pain or shortness of breath. Patient on room air. No cough or sputum production. Lab data reviewed. LDL 105 BUN 12 creatinine 0.56 and blood sugar 209. Neurology is on board. MRI to be done tomorrow. 03/28/2025 Patient is sitting in a chair. Awake alert and orient x 3. Left upper extremity weakness is better as well as slurred speech. No complaints of shortness of breath or patient does have chest heaviness this morning. EKG was done and follow-up troponin level. Patient is sitting Normal Saline at 75 cc/h. MRI with to be done today. Patient has been afebrile. No other acute overnight issues. Heart rate is controlled. Anticoagulation will be started back after MRI today. Objective - Vital Signs Vital signs: Vital Signs Temp 98.3 F 03/28/25 11:38 Pulse 82 03/28/25 11:38 Resp 14 03/28/25 11:38 BP 144/76 03/28/25 11:38 Pulse Ox 98 03/28/25 11:38 FiO2 Intake & Output 03/27/25 03/28/25 03/28/25 18:59 06:59 18:59 Intake Total 458 240 240 Output Total 500 300 Balance -42 -60 240 Weight 117.3 kg Intake: Oral 458 240 240 Output: Urine 500 300 Other: Voiding Method External Catheter External Catheter Toilet # Voids 1 1 - Exam PHYSICAL EXAMINATION: Patient is lying in the bed comfortably, no acute distress, awake alert and oriented.. HEENT: Normocephalic. Neck is supple. Pupils reactive. Nostrils clear. Oral cavity is moist. Neck reveals no JVD, carotid bruits, or thyromegaly. CHEST EXAMINATION: Trachea is central. Symmetrical expansion. Lung alexander clear to auscultation and percussion. CARDIAC: Normal S1, S2 with no gallops. No murmurs ABDOMEN: Soft. Bowel sounds normal. No organomegaly. No abdominal bruits. Extremities: reveal no edema. No clubbing or cyanosis Neurologically awake, alert, oriented x3 patient does have left upper extremity weakness and slurred speech.. Skin: No rash or skin lesions. Psychiatric: Coperative. Nonsuicidal Musculoskeletal: No joint swelling or deformity. Normal range of motion. - Labs CBC & Chem 7: 03/28/25 08:11 03/28/25 08:11 Labs: Abnormal Lab Results - Last 24 Hours (Table) 03/27/25 03/27/25 03/28/25 Range/Units 16:33 20:06 06:23 WBC (4.50-10.00) 10*3/uL Chloride (98-107) mmol/L Glucose (74-99) mg/dL POC Glucose (mg/dL) 114 H 204 H 135 H (70-110) mg/dL 03/28/25 03/28/25 03/28/25 Range/Units 08:11 08:11 11:13 WBC 4.26 L (4.50-10.00) 10*3/uL Chloride 108 H (98-107) mmol/L Glucose 258 H (74-99) mg/dL POC Glucose (mg/dL) 176 H (70-110) mg/dL Assessment and Plan Assessment: Acute left sided weakness, slurred speech and facial numbness likely due to acute CVA Prior history of CVA/TIA and history of tPA Paroxysmal atrial fibrillation on anticoagulation with Eliquis which she initia lly 5 days prior to admission Diabetes type 2 insulin-dependent, uncontrolled with hyperglycemia A1c 7.5 Hypertension Obesity with BMI 39.9 History of DVT/PE Fibromyalgia Depression/bipolar disorder Osteoarthritis DVT prophylaxis with heparin subcu Plan: Patient will be continued on telemonitoring. Continue with neurochecks. Continue with aspirin and statins. Patient had workup including CT head and CT angiogram of the head and neck was done. A1c 7.5, Continue with Cardizem. Eliquis will be on hold until after MRI.. MRI of the brain was ordered. Neurology is on board. PT OT and PUMP OPERATOR evaluation. Continue home medications and follow-up closely. Anticipate discharge in the next 24 hours Time with Patient: Greater than 30
[2025-03-28 16:28] LABS: Glucose,Whole Blood 197 mg/dL (70-110)
[2025-03-28 20:03] LABS: Glucose,Whole Blood 193 mg/dL (70-110)
[2025-03-28] MEDS: OFLOXACIN 0.3% OPHTH DROPS 5 ML BOTTLE RIGHT EYE SCH (23:20)
[2025-03-29 06:01] LABS: Glucose,Whole Blood 163 mg/dL (70-110)
[2025-03-29 07:51] VITALS: RESP 14
[2025-03-29 11:34] LABS: Glucose,Whole Blood 167 mg/dL (70-110)
[2025-03-29 12:06] VITALS: BP 154/76; PULSE 80; TEMP 98.9
--- NOTE | 2025-03-29 12:50 | P.PN ---
Subjective Progress Note Date: 03/29/25 I am following up with the patient and patient states that she is feeling much better today compared to initial presentation. She feels her strength is drastically better. She is able to walk with physical therapy. Objective - Vital Signs Vital signs: Vital Signs Temp 98.9 F 03/29/25 12:04 Pulse 80 03/29/25 12:04 Resp 14 03/29/25 12:04 BP 154/76 03/29/25 12:04 Pulse Ox 95 03/29/25 12:04 FiO2 Intake & Output 03/28/25 03/29/25 03/29/25 18:59 06:59 18:59 Intake Total 720 837 118 Balance 720 837 118 Weight 116.3 kg Intake: IV 600 Sodium Chloride 0.9% 1, 600 000 ml @ 75 mls/hr IV . [id number] FRANCISCO JAVIER Rx#:[id number] Oral 720 237 118 Other: Voiding Method Toilet Toilet Toilet # Voids 2 1 - Exam GENERAL: The patient is sitting in a chair and is not in acute distress. NEUROLOGICAL: Higher mental function: The patient is awake, alert, oriented to self, place and time. Patient is following commands. No aphasia and no neglect. Cranial nerves: The pupils are round, equal and reactive to light and accommo dation. Visual alexander are full to confrontation throughout. Extraocular movement is intact no nystagmus is noted. Facial sensation is normal to touch throughout. The facial strength is normal throughout. Hearing is normal bilaterally to hand rub. Tongue is midline and moved [id number] without any difficulty. Had ?dysarthria with stuttering but is not consistent. Shoulder shrug is normal bilaterally. Motor: The strength is strength left upper extremity is 4-4+ but with motivation strength improved. In the left lower extremity is 5 out of 5. Otherwise right side is 5 out of 5. Normal tone and bulk. Cerebellum: Normal finger to nose bilaterally. Sensation: Sensation is normal to touch throughout. Reflexes (right/left): 2+ throughout. Plantars are downgoing bilaterally. Some of the workup during this hospital visit consisted of: I reviewed the lab workup CT of the head is reported as no acute intracranial process or significant alteration from the prior examination. Stable appearing presumed incidental large. Vascular space in the inferior left basal ganglia. I personally reviewed the CT of the head and I agree there is no acute or subacute ischemia. CT angiography of the head and neck is reported as no hemodynamically significant stenosis or large vessel occlusion. 2D echo: Normal left ventricular size systolic function. - Labs CBC & Chem 7: 03/28/25 08:11 03/28/25 08:11 Labs: Abnormal Lab Results - Last 24 Hours (Table) 03/28/25 03/28/25 03/29/25 Range/Units 16:26 20:01 05:59 POC Glucose (mg/dL) 197 H 193 H 163 H (70-110) mg/dL 03/29/25 Range/Units 11:30 POC Glucose (mg/dL) 167 H (70-110) mg/dL Assessment and Plan Assessment: This is a 54-year-old woman with a history of stroke, atrial fibrillation and is supposed to be on Eliquis but patient has missed 6 days of Eliquis since she forgot to take the medication, diabetes mellitus, hypertension that is controlled who presents the emergency department because of her dysarthria, left-sided weakness and numbness that is acute. Acute dysarthria with left-sided weakness and numbness: Again, On my examination I felt was inconsistent and she had poor effort. Rule out acute ischemic stroke especially with her risk factors and her being noncompliant with her medication but cannot rule out functional neurological disorder--today strength is improving. Hypertension History of atrial fibrillation and she missed her Eliquis for the last 6 days History of diabetes mellitus History of stroke Hypertension uncontrolled with diet Plan: Patient was given aspirin 325 once then was started on aspirin 325 daily. Patient was also started on Lipitor 80 mg nightly for secondary stroke prophylaxis by the ED team. Pending MRI of the brain and schedule for today. CT of the head is reported as no acute bleed or mass effect. No significant interval change. From a neurology perspective she is cleared to resume Eliquis her home medicat ion. Continue neurochecks Cardiac monitoring PT OT and DOOR CLOSER MECHANIC are consulted Will defer the rest of the medical management to primary and other specialist For DVT prophylaxis On subcu heparin 5000 units every 12 hours. If Eliquis is resumed then discontinue subcu heparin. Upon discharge recommend the patient to follow-up with a neurologist as an outpatient within 2 to 3 weeks. The plan is discussed with her nurse. ADDENDUM: I was notified that the patient refused the MRI. Patient is cleared from neurology perspective. Will sign off. Please reconsult if needed Time with Patient: Less than 30
== END 2025-03-29 14:00 | disposition home or self-care (01) | DRG 65 ==
LOC: EC 03:17 → 3SCARD 04:29
PROVIDERS: ADMIT Hospitalist; ATTEND Hospitalist
DX: I63.89 Other cerebral infarction (principal); I69.354 Hemiplegia and hemiparesis following cerebral infarction affecting left non-dominant side; F31.9 Bipolar disorder, unspecified; E11.65 Type 2 diabetes mellitus with hyperglycemia; E66.9 Obesity, unspecified; I10 Essential (primary) hypertension; K76.0 Fatty (change of) liver, not elsewhere classified; J45.909 Unspecified asthma, uncomplicated; I48.0 Paroxysmal atrial fibrillation; Z79.4 Long term (current) use of insulin; Z68.39 Body mass index [BMI] 39.0-39.9, adult; R29.704 NIHSS score 4; R47.81 Slurred speech; R47.1 Dysarthria and anarthria; R20.0 Anesthesia of skin; R29.810 Facial weakness; M79.7 Fibromyalgia; M19.90 Unspecified osteoarthritis, unspecified site; E78.5 Hyperlipidemia, unspecified; Z53.20 Procedure and treatment not carried out because of patient's decision for unspecified reasons; Z86.718 Personal history of other venous thrombosis and embolism; Z86.711 Personal history of pulmonary embolism; Z79.82 Long term (current) use of aspirin; Z79.899 Other long term (current) drug therapy; Z79.01 Long term (current) use of anticoagulants; I25.2 Old myocardial infarction; Z91.148 Patient's other noncompliance with medication regimen for other reason
CPT/HCPCS: 36410; 36415; 70450; 70496; 70498; 71045; 76937; 80048; 80053; 80061; 82550; 83036; 84484; 85025; 85610; 85730; 93005; 93306; 94640; 96361; 96374; 96375; 96376; 99291

== ENCOUNTER 2025-05-30 19:39 | Observation (INO) | payer MEDICARE ==
--- NOTE | 2025-05-30 20:33 | ED ---
Chest Pain HPI - General Source: patient Mode of arrival: ambulatory Limitations: no limitations <Orion Johnston - Last Filed: 05/30/25 20:32> - General Source: patient, RN notes reviewed, old records reviewed <Papo Bishop - Last Filed: 05/31/25 00:55> - General Chief Complaint: Chest Pain Stated Complaint: Chest pain/vomiting Time Seen by Provider: 05/30/25 20:32 - History of Present Illness Initial Comments: Quick note: 55-year-old female presented chief complaint of chest pain. Started about 2 hours ago. Some nausea and vomiting as well. No radiation of the pain. Some difficulty breathing. (Orion Johnston) Patient is a 55-year-old female who presents emergency department complaining of chest pain. Started approximately 1 PM. Does have a history of an TN but states no stents. States the pain seems to be somewhat midline in her chest and somewhat under her left breast. States it is somewhat like heartburn as well. Endorses some mild nausea but no current nausea. Denies any current abdominal pain, nausea, vomiting. Denies any diarrhea. Denies any congestion or infectious symptoms. States pain has been relatively constant since earlier. Presents for further evaluation at this time. Workup started in triage. I evaluated the patient after she was placed in room. (Papo Bishop) - Related Data Home Medications Medication Instructions Recorded Confirmed Albuterol Sulfate [Albuterol 2 puff INHALATION RT-Q6H PRN 11/15/22 03/26/25 Sulfate Hfa] Apixaban [Eliquis] 5 mg PO BID 11/15/22 03/26/25 Insulin Aspart [NovoLOG Flexpen] See Protocol SQ TID-W/MEALS 11/15/22 03/26/25 Montelukast Sodium [Singulair] 10 mg PO HS 11/15/22 03/26/25 Ranolazine [Ranexa] 500 mg PO BID 11/28/23 03/26/25 Isosorbide Mononitrate ER [Imdur] 60 mg PO DAILY 12/19/23 03/26/25 Insulin Degludec [Tresiba 44 units SQ DAILY 03/15/24 03/26/25 Flextouch U-100 Pen] Fluticasone Propion/Salmeterol 1 puff INHALATION RT-BID PRN 06/06/24 03/26/25 [Advair 100-50 Diskus] Insulin Aspart [NovoLOG Flexpen] 17 units SQ TID-W/MEALS 06/06/24 03/26/25 [place] Carbonate 300 mg PO BID 08/25/24 03/26/25 clonazePAM [KlonoPIN] 0.5 mg PO DAILY 08/25/24 03/26/25 dilTIAZem HCL [Tiazac] 180 mg PO HS 08/25/24 03/26/25 Magnesium Oxide [Magox 400] 400 mg PO DAILY 12/11/24 03/26/25 ARIPiprazole [Abilify] 15 mg PO HS 03/26/25 03/26/25 Previous Rx's Medication Instructions Recorded traZODone HCL [Desyrel] 50 mg PO HS PRN #30 tab 12/20/23 Aspirin 325 mg PO DAILY tab 03/29/25 Atorvastatin [Lipitor] 80 mg PO HS 30 Days #30 tab 03/29/25 Ofloxacin 0.3% Ophth Soln [Ocuflox 1 drops RIGHT EYE Q4HR 10 Days #3 03/29/25 Ophth Soln] ml Allergies Allergy/AdvReac Type Severity Reaction Status Date / Time adhesive Allergy red skin - Verified 05/30/25 19:42 paper tape OK trimethobenzamide Allergy Rash/Hives Verified 05/30/25 19:42 [From [facility]] vancomycin Allergy Rash/Hives Verified 05/30/25 19:42 Review of Systems ROS Other: All systems not noted in ROS Statement are negative. <Orion Johnston - Last Filed: 05/30/25 20:32> ROS Other: All systems not noted in ROS Statement are negative. <Papo Bishop - Last Filed: 05/31/25 00:55> ROS Statement: Those systems with pertinent positive or pertinent negative responses have been documented in the HPI. Review of Systems: CONST: Denies fever EYES: Denies blurry vision ENT: Denies nasal congestion C/V: Endorses chest pain RESP: Denies shortness of breath GI: Denies abdominal pain : Denies dysuria SKIN: Denies rash. MSK: Denies joint pain. NEURO: Denies headache (Papo Bishop) EKG Findings - EKG Comments: EKG Findings:: 12-lead Electrocardiogram Interpretation Note. EKG was reviewed and interpreted by myself. 12-lead ECG performed at 3 is interpreted by me as revealing normal sinus rhythm at a rate of 71 beats per minute. [place] is normal. AL interval is 134 ms, QRS durations 88 ms, QTc is 418 ms.. There were no ST or T wave abnormalities to suggest myocardial ischemia or injury. R wave progression across the precordium was satisfactory. By my interpretation this EKG is non-diagnostic for acute ischemia. 12-lead Electrocardiogram Interpretation Note. EKG was reviewed and interpreted by myself. 12-lead ECG performed at 2210 is interpreted by me as revealing normal sinus rhythm at a rate of 70 beats per minute. [place] is normal. AL interval is 133 ms, QRS duration is 85 ms, QTc is 380 ms. No significant acute change when compared with EKG from earlier.. There were no ST or T wave abnormalities to suggest myocardial ischemia or injury. R wave progression across the precordium was satisfactory. By my interpretation this EKG is non-diagnostic for acute ischemia. - EKG Results: EKG: interpreted by MANOLO <Papo Bishop - Last Filed: 05/31/25 00:55> Past Medical History Past Medical History: Asthma, Chest Pain / Angina, CVA/TIA, Diabetes Mellitus, Deep Vein Thrombosis (DVT), Fibromyalgia, GERD/Reflux, Hyperlipidemia, Hypertension, Liver Disease, Myocardial Infarction (TN), Pulmonary Embolus (PE) Additional Past Medical History / Comment(s): fibomyalgia, light weakness on left after stroke coming back. mild TN from EKG unknown time. blood in stools. non alcoholic fatty liver,, diverticulosis. Last Myocardial Infarction Date:: unk History of Any Multi-Drug Resistant Organisms: C-DIFF Date of last positivie culture/infection: 2019 MDRO Source:: stool Past Surgical History: Appendectomy, Cholecystectomy, Hysterectomy, Orthopedic Surgery, Tonsillectomy Additional Past Surgical History / Comment(s): left knee replaced. left rotator cuff repair . rt hip stretched bursa. colonoscopies, laproscopic surgery to remove abdominal adhesions, left femur sx Past Anesthesia/Blood Transfusion Reactions: Postoperative Nausea & Vomiting (PONV) Additional Past Anesthesia/Blood Transfusion Reaction / Comment(s): with lap procedure had a hard time waking up. Past Psychological History: Bipolar, Depression Smoking Status: Never smoker Past Alcohol Use History: Rare Past Drug Use History: None Reported - Past Family History Mother Family Medical History: Cancer Additional Family Medical History / Comment(s): uterine Father Family Medical History: Cancer Additional Family Medical History / Comment(s): lung <Orion Johnston - Last Filed: 05/30/25 20:32> General Exam Limitations: no limitations <Orion Johnston - Last Filed: 05/30/25 20:32> <Papo Bishop - Last Filed: 05/31/25 00:55> - General Exam Comments Initial Comments: Visual Physical Exam Vital signs reviewed General: Well-appearing, nontoxic, no acute distress. Head: Normocephalic, atraumatic Eyes: PERRLA, EOMI ENT: Airway patent Chest: Nonlabored breathing Skin: No visual rash, normal skin tone Neuro: Alert and oriented 3 Musculoskeletal: No gross abnormalities (Orion Johnston) General: Appears in no acute distress. HEAD: Normal with no signs of head trauma. EYES: PERRLA, EOMI, conjunctiva normal, no discharge. ENT: Hearing grossly intact, normal oropharynx. RESPIRATORY: Clear breath sounds bilaterally. No wheezes, rales, or rhonchi. C/V: Regular rate and rhythm. S1 and S2 auscultated, no edema, peripheral pulses 2+ and intact throughout ABD: Abd is soft, nontender, nondistended EXT: No obvious deformity. No chest pain tenderness to palpation. SKIN: No rashes or lesions observed on exposed skin. NEURO: Alert and oriented x 4. (Papo Bishop) Course Vital Signs 05/30/25 05/31/25 19:40 00:43 Temperature 98.1 F 97.7 F Pulse Rate 72 75 Respiratory 18 17 Rate Blood Pressure 185/88 139/59 O2 Sat by Pulse 98 98 Oximetry Chest Pain MDM <Orion Johnston - Last Filed: 05/30/25 20:32> <Papo Bishop - Last Filed: 05/31/25 00:55> - MDM I performed the quick note portion of this visit, electronically signed Orion Johnston PA-C (Orion Johnston) Was pt. sent in by a medical professional or institution (, PA, DERRICK ENGINEER, urgent care, hospital, or jail...) When possible be specific @ -No Did you speak to anyone other than the patient for history (EMS, parent, family, police, friend...)? What history was obtained from this source @ -No Did you review nursing and triage notes (agree or disagree)? Why? @ -I reviewed and agree with nursing and triage notes Were old charts reviewed (outside hosp., previous admission, EMS record, old EKG, old radiological studies, urgent care reports/EKG's, jail records)? Report findings @ -Today's EKG compared with EKG from March 2025 with no significant acute change. Differential Diagnosis (chest pain, altered mental status, abdominal pain women, abdominal pain men, vaginal bleeding, weakness, fever, dyspnea, syncope, headache, dizziness, GI bleed, back pain, seizure, CVA, palpatations, mental health, musculoskeletal)? @ -Differential Chest Pain: Stable Angina, Unstable Angina, STEMI, NSTEMI Aortic Dissection, Pneumothorax, Musculoskeletal, Esophageal Spasm GERD, Cholecystitis, Pancreatitis, Zoster, this is not meant to be an all-inclusive list. EKG interpreted by me (3pts min.). @ -As above X-rays interpreted by me (1pt min.). @ -Chest x-ray reveals no obvious acute cardiopulmonary process. CT interpreted by me (1pt min.). @ -None done U/S interpreted by me (1pt. min.). @ -None done What testing was considered but not performed or refused? (CT, X-rays, U/S, labs)? Why? @ -None What meds were considered but not given or refused? Why? @ -None Did you discuss the management of the patient with other professionals (professionals i.e. , PA, DERRICK ENGINEER, lab, RT, psych nurse, director social welfare, supervisor mold cleaning and storage, teacher, morals squad police officer, manager case management)? Give summary @ -No Was smoking cessation discussed for >3mins.? @ -No Was critical care preformed (if so, how long)? @ -No Were there social determinants of health that impacted care today? How? (Homelessness, low income, unemployed, alcoholism, drug addiction, transportation, low edu. Level, literacy, decrease access to med. care, [place] [facility], rehab)? @ -No Was there de-escalation of care discussed even if they declined (Discuss DNR or withdrawal of care, Hospice)? DNR status @ -No What co-morbidities impacted this encounter? (DM, HTN, Smoking, COPD, CAD, Cancer, CVA, ARF, Chemo, Hep., AIDS, mental health diagnosis, sleep apnea, morbid obesity)? @ -None Was patient admitted / discharged? Hospital course, mention meds given and route, prescriptions, significant lab abnormalities, going to OR and other pertinent info. @ -Patient presents for chest pain. Has been present 6 approximately 1 PM. Started as a quick note. Patient declines IV attempts without ultrasound IV which has been attempted at my time of evaluation. She will be given 324 mg of aspirin. We will trial a nitroglycerin tablet with 1 L fluid bolus. Cardiac workup will be started. Vitals are within acceptable limits. Patient was in agreement this plan. 2 EKGs were obtained with no significant acute change. Chest x-ray shows no obvious acute cardiopulmonary process.Patient's laboratory studies are all within acceptable limits except for mild hypoglycemia which resolved with food. Troponin undetectable. On reevaluation, patient's chest discomfort did improve with nitroglycerin tablets x 2. Nitropaste applied. Patient given morphine for headache. Started on IV fluids. Echo will be ordered. Patient will be admitted to observation for chest pain observation. She was in agreement this plan. I spoke with the admitting provider, JOON LEMUS who accepted the admission. Cardiology consulted. Undiagnosed new problem with uncertain prognosis? @ -No Drug Therapy requiring intensive monitoring for toxicity (Heparin, Nitro, Insulin, Cardizem)? @ -No Were any procedures done? @ -No Diagnosis/symptom? @ -Chest pain Acute, or Chronic, or Acute on Chronic? @ -Acute Uncomplicated (without systemic symptoms) or Complicated (systemic symptoms)? @ -Complicated Side effects of treatment? @ -None Exacerbation, Progression, or Severe Exacerbation] @ -No Poses a threat to life or bodily function? @ -Potentially, yes (Papo Bishop) Disposition <Orion Johnston - Last Filed: 05/30/25 20:32> Time of Disposition: 00:11 <Papo Bishop - Last Filed: 05/31/25 00:55> Clinical Impression: Chest pain Disposition: ADMITTED IP TO THIS HOSP Condition: Stable Referrals: Abby Santiago, NOHEMY [REFERRING] - 1-2 days
--- NOTE | 2025-05-30 21:07 | XR ---
EXAMINATION TYPE: XR chest 2V DATE OF EXAM: 05/30/2025 8:55 PM COMPARISON: 03/26/2025 CLINICAL INDICATION: Female, 55 years old with history of Chest Pain, TECHNIQUE: XR chest 2V view(s) obtained. FINDINGS: The heart size is normal. The pulmonary vasculature is normal. The lungs are clear. IMPRESSION: 1. No acute pulmonary process. [facility], , 05/30/2025 9:05 PM
[2025-05-30 21:56] LABS: Glucose,Whole Blood 81 mg/dL (70-110)
[2025-05-30] MEDS: NITROGLYCERIN SL TABS 0.4 MG TAB SUBLINGUAL STA ×2 (22:57→23:46)
[2025-05-30] MEDS: SODIUM CHLORIDE 0.9% 1,000 ML IV ONE (22:57)
[2025-05-30] MEDS: ASPIRIN 81 MG PO STA (22:57)
[2025-05-30 22:59] LABS: Basophils # (A) 0.05 10*3/uL (0.00-0.10); Basophils % (A) 0.5 %; Eosinophils # (A) 0.11 10*3/uL (0.04-0.35); Eosinophils % (A) 1.2 %; HCT 43.5 % (37.2-46.3); HGB 14.7 g/dL (12.0-15.0); Lymphocytes # (A) 2.07 10*3/uL (0.90-5.00); Lymphocytes % (A) 22.1 %; MCH 30.1 pg (27.0-32.0); MCHC 33.8 g/dL (32.0-37.0); MCV 89.0 fL (80.0-97.0); Monocytes # (A) 0.56 10*3/uL (0.20-1.00); Monocytes % (A) 6.0 %; Neutrophils # (A) 6.57 10*3/uL (1.80-7.70); Neutrophils % (A) 70.0 %; Platelet Count 272 10*3/uL (140-440); RBC 4.89 10*6/uL (4.10-5.20); RDW 12.2 % (11.5-14.5); WBC 9.38 10*3/uL (4.50-10.00)
[2025-05-30 23:11] LABS: INR 0.9 (<1.2); Partial Thromboplastin Time 27.0 sec (22.0-30.0); Prothrombin Time 10.3 sec (10.0-12.5)
[2025-05-30 23:16] LABS: ALT 25 U/L (4-34); AST 23 U/L (14-36); African American GFR (CKD) >90 (>60 ml/min/1.73 sqM); Albumin 4.4 g/dL (3.5-5.0); Alkaline Phosphatase 85 U/L (38-126); Anion Gap 8 mmol/L; Blood Urea Nitrogen 18 mg/dL (7-17); Calcium 10.2 mg/dL (8.4-10.2); Carbon Dioxide 30 mmol/L (22-30); Chloride 103 mmol/L (98-107); Glucose 60 mg/dL (74-99); Magnesium 2.1 mg/dL (1.6-2.3); Non-African American GFR(CKD) 83 (>60 ml/min/1.73 sqM); Potassium 4.4 mmol/L (3.5-5.1); Sodium 141 mmol/L (137-145); Total Protein 6.7 g/dL (6.3-8.2)
[2025-05-31] MEDS ORDERED: NALOXONE 0.4 MG/ML 1 ML VIAL IV PRN (00:11)
[2025-05-31] MEDS: NITROGLYCERIN OINT 1 INCH/GM PACKET TOPICAL SCH (00:38)
[2025-05-31] MEDS: MORPHINE SULFATE 4 MG/ML SYRINGE IVP STA (00:38)
[2025-05-31] MEDS: SODIUM CHLORIDE 0.9% 1,000 ML IV SCH (00:41)
[2025-05-31 00:45] VITALS: TEMP 97.7
[2025-05-31 00:55] LABS: Glucose,Whole Blood 95 mg/dL (70-110)
[2025-05-31] MEDS: ONDANSETRON 4 MG/2 ML VIAL IVP PRN (04:46)
[2025-05-31] MEDS: MORPHINE SULFATE 4 MG/ML SYRINGE IV PRN (04:47)
[2025-05-31 07:33] VITALS: RESP 16
[2025-05-31] MEDS ORDERED: DEXTROSE 50% SYRINGE 50 ML IVP PRN ×2 (10:08)
[2025-05-31 11:02] LABS: Glucose,Whole Blood 139 mg/dL (70-110)
[2025-05-31] MEDS: INSULIN LISPRO (HumaLOG) 100 UNIT/ML 10 mL VL SQ SCH ×2 (11:24)
[2025-05-31 12:05] LABS: Amylase 34 U/L (30-110); Lipase 117 U/L (23-300)
[2025-05-31] MEDS: RANOLAZINE 500 MG TAB.ER.12H PO SCH (12:58)
[2025-05-31] MEDS: APIXABAN 5 MG TAB PO SCH (12:58)
[2025-05-31] MEDS: ACETAMINOPHEN TAB 325 MG TAB PO PRN (12:59)
[2025-05-31] MEDS: LITHIUM CARBONATE 300 MG CAP PO SCH (12:59)
[2025-05-31] MEDS: CLOBETASOL PROP 0.05% OINT 15GM TOPICAL SCH (12:59)
[2025-05-31 13:01] VITALS: BP 131/54; PULSE 72
--- NOTE | 2025-05-31 13:50 | P.CRDCN ---
History of Present Illness Consult date: 05/31/25 History of present illness: HISTORY OF PRESENTING ILLNESS: Patient is known to Dr. Loera. Prior history of atypical chest pain with angina. She had a heart catheterization done in 2023 which showed normal coronary artery disease with no significant obstruction. A month ago she had a echocardiogram done which showed an EF of 55% with no significant valvular dysfunction. She was last seen by cardiology in November 2024 at that time her cardiac testing was nonrevealing. Her home medication was continued. She also has history of paroxysmal atrial fibrillation managed on anticoagulation with Eliquis. On admission BP 139/59, heart rate 75, EKG shows sinus rhythm with no significant ST-T wave changes concerning for ischemia. Nonspecific ST changes in V5 V6. Unchanged from prior evaluation. Labs shows hemoglobin 14, BUN 18, creatinine 0.8, troponin x 3 were negative, Home medications include aspirin, Eliquis, Lipitor 80, Imdur 60, lithium 300 twice daily, ranolazine 500 twice daily, Cardizem 180 daily. 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 At this time in the ER her symptoms are getting better with nitro patch. She is not much physically active, sedentary because of prior injury and franco in her hip. ...................................... ................................................................................ ........................ REVIEW OF SYSTEMS: 14 point review of system is negative except what is mentioned above in HPI. ................................................................................ .............................................................. PHYSICAL EXAMINATION: Neck: Brisk carotid upstroke, no jugular venous distention. Lungs: Clear to auscultation. Heart: Regular rate and rhythm, S1-S2, , no murmur or rub. Abdomen: Soft nontender, positive bowel sounds. Extremities: No edema, intact distal pulses. Neuro: Alert, oritented, no focal deficits. Detailed neuro exam was not performed. ........ ................................................................................ ...................................................... ASSESSMENT: # Atypical chest pain, ACS has been ruled out # Paroxysmal atrial fibrillation # Type 2 diabetes # Morbid obesity # Bipolar disorder with mood disorder PLAN: Continue aspirin at 81 mg, Eliquis 5 mg twice daily Continue Cardizem 180 mg daily, Imdur 60, ranolazine 500 twice daily At this time patient is stable from cardiovascular standpoint to be discharged. Recommend outpatient follow-up with Dr. Loera. Pascual Castellon MD, [facility], [facility] Past Medical History Past Medical History: Asthma, Chest Pain / Angina, CVA/TIA, Diabetes Mellitus, Deep Vein Thrombosis (DVT), Fibromyalgia, GERD/Reflux, Hyperlipidemia, Hy pertension, Liver Disease, Myocardial Infarction ([place]), Pulmonary Embolus (PE) Additional Past Medical History / Comment(s): fibomyalgia, light weakness on left after stroke coming back. mild IL from EKG unknown time. blood in stools. non alcoholic fatty liver,, diverticulosis. Last Myocardial Infarction Date:: unk History of Any Multi-Drug Resistant Organisms: C-DIFF Date of last positivie culture/infection: 2019 MDRO Source:: stool Past Surgical History: Appendectomy, Cholecystectomy, Hysterectomy, Orthopedic Surgery, Tonsillectomy Additional Past Surgical History / Comment(s): left knee replaced. left rotator cuff repair . rt hip stretched bursa. colonoscopies, laproscopic surgery to remove abdominal adhesions, left femur sx Past Anesthesia/Blood Transfusion Reactions: Postoperative Nausea & Vomiting (PONV) Additional Past Anesthesia/Blood Transfusion Reaction / Comment(s): with lap procedure had a hard time waking up. Past Psychological History: Bipolar, Depression Smoking Status: Never smoker Past Alcohol Use History: Rare Past Drug Use History: None Reported - Past Family History Mother Family Medical History: Cancer Additional Family Medical History / Comment(s): uterine Father Family Medical History: Cancer Additional Family Medical History / Comment(s): lung Medications and Allergies Home Medications Medication Instructions Recorded Confirmed Type Apixaban [Eliquis] 5 mg PO BID 11/15/22 05/31/25 History Insulin Aspart [NovoLOG Flexpen] See Protocol SQ TID-W/MEALS 11/15/22 05/31/25 History Montelukast Sodium [Singulair] 10 mg PO HS 11/15/22 05/31/25 History Ranolazine [Ranexa] 500 mg PO BID 11/28/23 05/31/25 History Isosorbide Mononitrate ER [Imdur] 60 mg PO DAILY 12/19/23 05/31/25 History traZODone HCL [Desyrel] 50 mg PO HS PRN #30 tab 12/20/23 05/31/25 Rx Insulin Degludec [Tresiba 44 units SQ DAILY 03/15/24 05/31/25 History Flextouch U-100 Pen] Insulin Aspart [NovoLOG Flexpen] 17 units SQ TID-W/MEALS 06/06/24 05/31/25 History [place] Carbonate 300 mg PO BID 08/25/24 05/31/25 History clonazePAM [KlonoPIN] 0.5 mg PO DAILY 08/25/24 05/31/25 History dilTIAZem HCL [Tiazac] 180 mg PO HS 08/25/24 05/31/25 History ARIPiprazole [Abilify] 15 mg PO HS 03/26/25 05/31/25 History Aspirin 325 mg PO DAILY tab 03/29/25 05/31/25 Rx Atorvastatin [Lipitor] 80 mg PO HS 30 Days #30 tab 03/29/25 05/31/25 Rx Clobetasol Propionate [Temovate 1 applic TOPICAL BID 05/31/25 05/31/25 History 0.05% Oint] Prolia (Unknown Dose) 1 dose SQ Q180D 05/31/25 05/31/25 History Semaglutide [Ozempic] 0.5 mg SQ TU 05/31/25 05/31/25 History Allergies Allergy/AdvReac Type Severity Reaction Status Date / Time adhesive Allergy red skin - Verified 05/31/25 08:44 paper tape OK trimethobenzamide Allergy Rash/Hives Verified 05/31/25 08:44 [From [facility]] vancomycin Allergy Rash/Hives Verified 05/31/25 08:44 Physical Exam Vitals: Vital Signs Temp Pulse Resp BP Pulse Ox 05/31/25 13:01 72 16 131/54 96 05/31/25 10:55 70 16 134/70 99 05/31/25 07:30 62 16 119/67 97 05/31/25 04:00 65 17 123/66 96 05/31/25 00:43 97.7 F 75 17 139/59 98 05/30/25 19:40 98.1 F 72 18 185/88 98 Intake and Output 05/30/25 05/31/25 05/31/25 22:59 06:59 14:59 Other: Weight 108.862 kg Results 05/30/25 22:44 05/30/25 22:44 Cardiac Enzymes 05/30/25 05/30/25 05/31/25 Range/Units 22:44 22:44 03:28 AST 23 (14-36) U/L Troponin I <0.012 0.020 (0.000-0.034) ng/mL 05/31/25 Range/Units 06:27 AST (14-36) U/L Troponin I 0.020 (0.000-0.034) ng/mL Coagulation 05/30/25 Range/Units 22:44 PT 10.3 (10.0-12.5) sec APTT 27.0 (22.0-30.0) sec CBC 05/30/25 Range/Units 22:44 WBC 9.38 (4.50-10.00) 10*3/uL RBC 4.89 (4.10-5.20) 10*6/uL Hgb 14.7 (12.0-15.0) g/dL Hct 43.5 (37.2-46.3) % Plt Count 272 (140-440) 10*3/uL Comprehensive Metabolic Panel 05/30/25 Range/Units 22:44 Sodium 141 (137-145) mmol/L Potassium 4.4 (3.5-5.1) mmol/L Chloride 103 (98-107) mmol/L Carbon Dioxide 30 (22-30) mmol/L BUN 18 H (7-17) mg/dL Creatinine 0.81 (0.52-1.04) mg/dL Glucose 60 L (74-99) mg/dL Calcium 10.2 (8.4-10.2) mg/dL AST 23 (14-36) U/L ALT 25 (4-34) U/L Alkaline Phosphatase 85 (38-126) U/L Total Protein 6.7 (6.3-8.2) g/dL Albumin 4.4 (3.5-5.0) g/dL Current Medications Generic Name Dose Route Start Last Admin Trade Name Freq PRN Reason Stop Dose Admin Acetaminophen 650 mg 05/31/25 10:11 05/31/25 12:59 Acetaminophen Tab 325 Mg Tab PO 650 mg Q6HR PRN Administration Fever and/ or Mild Pain Apixaban 5 mg 05/31/25 10:15 05/31/25 12:58 Apixaban 5 Mg Tab PO 5 mg BID [facility] Administration Protocol Aripiprazole 15 mg 05/31/25 21:00 Aripiprazole 15 Mg Tab PO HS FRANCISCO JAVIER Aspirin 325 mg 06/01/25 09:00 Aspirin 325 Mg Tab PO DAILY [facility] Atorvastatin Calcium 80 mg 05/31/25 21:00 Atorvastatin 80 Mg Tab PO HS FRANCISCO JAVIER Clobetasol Propionate 1 applic 05/31/25 10:30 05/31/25 12:59 Clobetasol Prop 0.05% Oint 15gm TOPICAL 1 applic BID [facility] Administration Protocol Clonazepam 0.5 mg 06/01/25 09:00 Clonazepam 0.5 Mg Tab PO DAILY [facility] Dextrose/Water 25 ml 05/31/25 10:08 Dextrose 50% Syringe 50 Ml IVP PER PROTOCOL PRN Hypoglycemia Protocol Dextrose/Water 50 ml 05/31/25 10:08 Dextrose 50% Syringe 50 Ml IVP PER PROTOCOL PRN Hypoglycemia Protocol Diltiazem HCl 180 mg 05/31/25 21:00 Diltiazem Cd 180 Mg Cap.Er.24h PO HS [facility] Sodium Chloride 1,000 mls @ 75 mls/hr 05/31/25 00:15 05/31/25 13:41 Saline 0.9% IV Not Given .[id number] [facility] Insulin Glargine 44 unit 06/01/25 09:00 Insulin Glargine (Lantus) 100 Unit/Ml Syr SQ DAILY [facility] Insulin Human Lispro 17 unit 05/31/25 12:30 05/31/25 11:24 Insulin Lispro (Humalog) 100 Unit/Ml 10 Ml Vl SQ Not Given TID-W/MEALS [facility] Insulin Human Lispro 0 unit 05/31/25 12:30 05/31/25 11:24 Insulin Lispro (Humalog) 100 Unit/Ml 10 Ml Vl SQ Not Given ACHS [facility] Protocol Isosorbide Mononitrate 60 mg 06/01/25 09:00 Isosorbide Mononitrate Er 60 Mg Tab.Er.24h PO DAILY [facility] [place] Carbonate 300 mg 05/31/25 10:30 05/31/25 12:59 [place] Carbonate 300 Mg Cap PO 300 mg BID [facility] Administration Montelukast Sodium 10 mg 05/31/25 21:00 Montelukast 10 Mg Tab PO HS [facility] Naloxone HCl 0.2 mg 05/31/25 00:11 Naloxone 0.4 Mg/Ml 1 Ml Vial IV Q2M PRN Opioid Reversal Nitroglycerin 0.5 inch 05/31/25 00:15 05/31/25 11:01 Nitroglycerin Oint 1 Inch/Gm Packet TOPICAL 06/01/25 03:00 Not Given Q8HR [facility] Ondansetron HCl 4 mg 05/31/25 00:11 05/31/25 12:59 Ondansetron 4 Mg/2 Ml Vial IVP 4 mg Q8HR PRN Administration Nausea And Vomiting Ranolazine 500 mg 05/31/25 10:30 05/31/25 12:58 Ranolazine 500 Mg Tab.Er.12h PO 500 mg BID [facility] JAVIER Administration Trazodone HCl 50 mg 05/31/25 10:06 Trazodone Hcl 50 Mg Tab PO HS PRN Insomnia Intake and Output 05/30/25 05/31/25 05/31/25 22:59 06:59 14:59 Other: Weight 108.862 kg 05/30/25 22:44 05/30/25 22:44
--- NOTE | 2025-05-31 14:14 | P.HPIM ---
History of Present Illness H&P Date: 05/31/25 This is a 55 year old male with Medical history of osteoporosis, hypertension, hyperlipidemia, diabetes mellitus, asthma, fibromyalgia. Patient follows with Dr. Oglesby in the cardiology office. Patient reports intermittent chest pain, left chest wall pain with radiation into shoulder and bilateral arms associated diaphoresis and nausea. States his pain began a couple days ago. Spontaneously resolved mostly however yesterday around 1 pm the left sided chest wall pain came back with headache vomiting and heart burn. States the chest pain is a squeezing sensation. No prior history of cardiac stenting. States she was told to stop taking SL nitroglycerin and has been maintained on ranexa and imdur. Additionally; 2 weeks ago patient felt a pain in the left side of her abdomen which is tender to palpation. No dysuria urgency burning with urination. She had a cardiac catheterization in 2023 revealing normal coronaries. Wad admitted to the hospital in March of 2025 for slurred speech and diagnosed with TIA. EF was 55% on echocardiogram with no valvular dysfunction. Patient had negative troponin, trop 0.020 x 2. Chest xray reveals no acute pulmonary process. REVIEW OF SYSTEMS: CONSTITUTIONAL: No fever, no malaise, no fatigue. HEENT: No recent visual problems or hearing problems. Denied any sore throat. CARDIOVASCULAR: No chest pain, orthopnea, PND, no palpitations, no syncope. PULMONARY: No shortness of breath, no cough, no hemoptysis. GASTROINTESTINAL: No diarrhea, no nausea, no vomiting, no abdominal pain. NEUROLOGICAL: No headaches, no weakness, no numbness. HEMATOLOGICAL: Denies any bleeding or petechiae. GENITOURINARY: Denies any burning micturition, frequency, or urgency. MUSCULOSKELETAL/RHEUMATOLOGICAL: Denies any joint pain, swelling, or any muscle pain. ENDOCRINE: Denies any polyuria or polydipsia. The rest of the 14-point review of systems is negative. PHYSICAL EXAMINATION: GENERAL: The patient is alert and oriented x3, not in any acute distress. Well d eveloped, well nourished. HEENT: Pupils are round and equally reacting to light. EOMI. No scleral icterus. No conjunctival pallor. Normocephalic, atraumatic. No pharyngeal erythema. No thyromegaly. CARDIOVASCULAR: S1 and S2 present. No murmurs, rubs, or gallops. PULMONARY: Chest is clear to auscultation, no wheezing or crackles. ABDOMEN: Soft, nontender, nondistended, normoactive bowel sounds. No palpable organomegaly. MUSCULOSKELETAL: No joint swelling or deformity. EXTREMITIES: No cyanosis, clubbing, or pedal edema. NEUROLOGICAL: Gross neurological examination did not reveal any focal deficits. SKIN: No rashes. Assessment Chest pain, atypical with reports of angina Paroxysmal atrial fibrillation anticoagulated with eliquis Hx of angina maintained on imdur and ranexa Hypertension Hyperlipidemia Diabetes Mellitus type 2 Asthma Fibromyalgia Osteoporosis history with recent ankle fracture GI prophylaxis DVT prophylaxis Full Code Plan Pending cardiac evaluation Continue aspirin and eliquis Recommending to continue imdur and ranexa Echocardiogram taken and pending The impression and plan of care has been dictated by Bere Sánchez Nurse Practitioner as directed. Dr. Maureen MD I have performed a history and physical examination and medical decision making of this patient, discussed the same with the dictator, and agree with the dictators assessment and plan as written, documented as a scribe. Based on total visit time, I have performed more than 50% of this visit. Past Medical History Past Medical History: Asthma, Chest Pain / Angina, CVA/TIA, Diabetes Mellitus, Deep Vein Thrombosis (DVT), Fibromyalgia, GERD/Reflux, Hyperlipidemia, Hypertension, Liver Disease, Myocardial Infarction ([place]), Pulmonary Embolus (PE) Additional Past Medical History / Comment(s): fibomyalgia, light weakness on left after stroke coming back. mild [place] from EKG unknown time. blood in stools. non alcoholic fatty liver,, diverticulosis. Last Myocardial Infarction Date:: unk History of Any Multi-Drug Resistant Organisms: C-DIFF Date of last positivie culture/infection: 2019 MDRO Source:: stool Past Surgical History: Appendectomy, Cholecystectomy, Hysterectomy, Orthopedic Surgery, Tonsillectomy Additional Past Surgical History / Comment(s): left knee replaced. left rotator cuff repair . rt hip stretched bursa. colonoscopies, laproscopic surgery to remove abdominal adhesions, left femur sx Past Anesthesia/Blood Transfusion Reactions: Postoperative Nausea & Vomiting (PONV) Additional Past Anesthesia/Blood Transfusion Reaction / Comment(s): with lap procedure had a hard time waking up. Past Psychological History: Bipolar, Depression Smoking Status: Never smoker Past Alcohol Use History: Rare Past Drug Use History: None Reported - Past Family History Mother Family Medical History: Cancer Additional Family Medical History / Comment(s): uterine Father Family Medical History: Cancer Additional Family Medical History / Comment(s): lung Medications and Allergies Home Medications Medication Instructions Recorded Confirmed Type Apixaban [Eliquis] 5 mg PO BID 11/15/22 05/31/25 History Insulin Aspart [NovoLOG Flexpen] See Protocol SQ TID-W/MEALS 11/15/22 05/31/25 History Montelukast Sodium [Singulair] 10 mg PO HS 11/15/22 05/31/25 History Ranolazine [Ranexa] 500 mg PO BID 11/28/23 05/31/25 History Isosorbide Mononitrate ER [Imdur] 60 mg PO DAILY 12/19/23 05/31/25 History traZODone HCL [Desyrel] 50 mg PO HS PRN #30 tab 12/20/23 05/31/25 Rx Insulin Degludec [Tresiba 44 units SQ DAILY 03/15/24 05/31/25 History Flextouch U-100 Pen] Insulin Aspart [NovoLOG Flexpen] 17 units SQ TID-W/MEALS 06/06/24 05/31/25 History [place] Carbonate 300 mg PO BID 08/25/24 05/31/25 History clonazePAM [KlonoPIN] 0.5 mg PO DAILY 08/25/24 05/31/25 History dilTIAZem HCL [Tiazac] 180 mg PO HS 08/25/24 05/31/25 History ARIPiprazole [Abilify] 15 mg PO HS 03/26/25 05/31/25 History Aspirin 325 mg PO DAILY tab 03/29/25 05/31/25 Rx Atorvastatin [Lipitor] 80 mg PO HS 30 Days #30 tab 03/29/25 05/31/25 Rx Clobetasol Propionate [Temovate 1 applic TOPICAL BID 05/31/25 05/31/25 History 0.05% Oint] Prolia (Unknown Dose) 1 dose SQ Q180D 05/31/25 05/31/25 History Semaglutide [Ozempic] 0.5 mg SQ TU 05/31/25 05/31/25 History Allergies Allergy/AdvReac Type Severity Reaction Status Date / Time adhesive Allergy red skin - Verified 05/31/25 08:44 paper tape OK trimethobenzamide Allergy Rash/Hives Verified 05/31/25 08:44 [From [facility]] vancomycin Allergy Rash/Hives Verified 05/31/25 08:44 Physical Exam Vitals: Vital Signs Temp Pulse Resp BP Pulse Ox 05/31/25 07:30 62 16 119/67 97 05/31/25 04:00 65 17 123/66 96 05/31/25 00:43 97.7 F 75 17 139/59 98 05/30/25 19:40 98.1 F 72 18 185/88 98 Intake and Output 05/30/25 05/31/25 05/31/25 22:59 06:59 14:59 Other: Weight 108.862 kg Results CBC & Chem 7: 05/30/25 22:44 05/30/25 22:44 Labs: Abnormal Lab Results - Last 24 Hours (Table) 05/30/25 Range/Units 22:44 BUN 18 H (7-17) mg/dL Glucose 60 L (74-99) mg/dL Assessment and Plan Time with Patient: Less than 30
--- NOTE | 2025-05-31 18:05 | CA ---
Transthoracic Echo Report Name: Aurora Tsai Age: 55 Gender: F : 1970 Exam Date: 05/31/2025 07:46 Exam Location: [place] [facility] Ht (in): 65 Wt (lb): 240 Ordering Physician: Papo Bishop MD Attending/Referring Phys: Inspector Final [employer] Conveyor Line Alanna Pink RDCS Procedure CPT: Indications: Chest Pain Cardiac Hx: done by rachel Technical Quality: Fair Contrast 1: Total Dose (mL): Contrast 2: Total Dose (mL): MEASUREMENTS (Male / Female) Normal Values 2D ECHO LV Diastolic Diameter PLAX 2.6 cm 4.2 - 5.9 / 3.9 - 5.3 cm LV Systolic Diameter PLAX 1.9 cm IVS Diastolic Thickness 1.1 cm 0.6 - 1.0 / 0.6 - 0.9 cm LVPW Diastolic Thickness 1.5 cm 0.6 - 1.0 / 0.6 - 0.9 cm LV Relative Wall Thickness 1.0 RV Internal Dim ED PLAX 2.3 cm LVOT Diameter 1.8 cm LA Systolic Diameter LX 3.6 cm 3.0 - 4.0 / 2.7 - 3.8 cm LV Diastolic Volume MOD BP 64.1 cm??? 67 - 155 / 56 - 104 cm??? LV Systolic Volume MOD BP 21.3 cm??? 22 - 58 / 19 - 49 cm??? LV Ejection Fraction MOD BP 66.9 % >= 55 % LV Cardiac Index MOD BP 1180.7 cm???/min???m??? LV Diastolic Volume MOD 4C 66.5 cm??? LV Systolic Volume MOD 4C 17.0 cm??? LV Ejection Fraction MOD 4C 74.4 % LV Cardiac Index MOD 4C 1361.0 cm???/min???m??? LV Diastolic Length 4C 7.7 cm LV Systolic Length 4C 6.2 cm LV Diastolic Volume MOD 2C 59.8 cm??? LV Systolic Volume MOD 2C 25.8 cm??? LV Ejection Fraction MOD 2C 57.0 % LV Cardiac Index MOD 2C 938.5 cm???/min???m??? LV Diastolic Length 2C 7.4 cm LV Systolic Length 2C 6.5 cm LA Volume 41.0 cm??? 18 - 58 / 22 - 52 cm??? LA Volume Index 17.9 cm???/m??? 16 - 28 cm???/m??? M-MODE Aortic Root Diameter MM 3.0 cm AV Cusp Separation MM 2.0 cm DOPPLER AV Peak Velocity 126.1 cm/s AV Peak Gradient 6.4 mmHg LVOT Peak Velocity 91.9 cm/s LVOT Peak Gradient 3.4 mmHg AV Area Cont Eq pk 1.8 cm??? MV Area PHT 3.0 cm??? Mitral E Point Velocity 69.3 cm/s Mitral A Point Velocity 77.9 cm/s Mitral E to A Ratio 0.9 MV Deceleration Time 250.7 ms FINDINGS Left Ventricle Left ventricular ejection fraction is estimated at 60-65 %. Mildly increased septal wall thickness. Moderately increased posterior wall thickness. Left ventricular cavity size normal. No obvious regional wall motion abnormalities. Right Ventricle Normal right ventricular size and function. Right Atrium Normal right atrial size. No right atrial thrombus or mass seen. Left Atrium Normal left atrial size. No left atrial thrombus or mass present. Mitral Valve Structurally normal mitral valve. Mild thickening/calcification of the anterior mitral valve leaflet. No mitral stenosis. Trace mitral regurgitation. Aortic Valve Trileaflet aortic valve. Thickened aortic valve without stenosis. No aortic regurgitation. Tricuspid Valve Structurally normal tricuspid valve. No tricuspid regurgitation. Pulmonic Valve Pulmonic valve not well visualized. No pulmonic regurgitation. Pericardium No pericardial effusion. No pleural effusion. Echo free space anterior to the right ventricle likely represents a fat pad. Aorta Normal size aortic root and proximal ascending aorta. CONCLUSIONS Reason: Chest pain LVH with preserved systolic function Previewed by: Dr. Shorty Vincent MD (Electronically Signed) Final Date: 31 May 2025 18:04
[2025-05-31] MEDS ORDERED: MONTELUKAST 10 MG TAB PO SCH (21:00)
[2025-05-31] MEDS ORDERED: DILTIAZEM CD 180 MG CAP.ER.24H PO SCH (21:00)
[2025-05-31] MEDS ORDERED: ARIPiprazole 15 MG TAB PO SCH (21:00)
[2025-05-31] MEDS ORDERED: ATORVASTATIN 80 MG TAB PO SCH (21:00)
[2025-06-01] MEDS ORDERED: clonazePAM 0.5 MG TAB PO SCH (09:00)
[2025-06-01] MEDS ORDERED: ASPIRIN 325 MG TAB PO SCH (09:00)
[2025-06-01] MEDS ORDERED: INSULIN GLARGINE (LANTUS) 100 UNIT/ML SYR SQ SCH (09:00)
[2025-06-01] MEDS ORDERED: ISOSORBIDE MONONITRATE ER 60 MG TAB.ER.24H PO SCH (09:00)
--- NOTE | 2025-06-03 17:29 | P.DS ---
Providers Date of admission: 05/31/25 00:15 Attending physician: Velvet Henderson Consults: 05/31/25 00:11 Consult Physician Routine Consulting Provider: [facility] Consult Reason/Comments: chest pain Do you want consulting provider notified?: Yes Primary care physician: Brayden Valdovinos Hospital Course: Final Diagnosis Chest pain, atypical with reports of angina Recent hospitalization and neurology work up diagnosed with TIA Paroxysmal atrial fibrillation anticoagulated with eliquis Hx of angina maintained on imdur and ranexa Hypertension Hyperlipidemia Diabetes Mellitus type 2 Asthma Fibromyalgia Osteoporosis history with recent ankle fracture Discharge Disposition Patient stable for DC home. Patient to follow up with Dr Loera in the office in 1 week. Recommend to continue all same home medications. Hospital Course This is a 55 year old male with Medical history of osteoporosis, hypertension, hyperlipidemia, diabetes mellitus, asthma, fibromyalgia. Patient follows with Dr Liban Oglesby in the cardiology office. Patient reports intermittent chest pain, left chest wall pain with radiation into shoulder and bilateral arms associated diaphoresis and nausea. States his pain began a couple days ago. Spontaneously resolved mostly however yesterday around 1 pm the left sided chest wall pain came back with headache vomiting and heart burn. States the chest pain was a squeezing sensation. No prior history of cardiac stenting. States she was told to stop taking SL nitroglycerin and has been maintained on ranexa and imdur. Additionally; 2 weeks ago patient felt a pain in the left side of her abdomen which is tender to palpation. No dysuria urgency burning with urination. She had a cardiac catheterization in 2023 revealing normal coronaries. Was admitted to the hospital in March of 2025 for slurred speech and diagnosed with TIA. EF was 55% on echocardiogram with no valvular dysfunction. Patient had negative troponin, trop 0.020 x 2. Chest xray reveals no acute pulmonary process. Cardiology evaluated the patient and ruled out an acute coronary syndrome. Patient advised to continue aspirin 81 mg daily as well as eliquis 5 mg twice daily. Patient to continue on cardizem 180 mg daily, imdur 60 mg daily and ranexa 500 mg twice daily. At the time of evaluation she is not complaining of chest pain or shortness of breath. She has no headache currently. She has normal amylase and lipase. Had a repeat echocardiogram revealing left ventricular hypertrophy with preserved systolic function. Cardiology cleared the Patient to follow up with Dr Loera in the office. Please see medication reconciliation for a list of current medications. Thank you for allowing us to participate in the care of this patient. The impression and plan of care has been dictated by Bere Sánchez, Nurse Practitioner as directed. Dr. Maureen MD I have performed a history and physical examination and medical decision making of this patient, discussed the same with the dictator, and agree with the dictators assessment and plan as written, documented as a scribe. Based on total visit time, I have performed more than 50% of this visit. Patient Condition at Discharge: Stable Plan - Discharge Summary New Discharge Prescriptions: Continue Montelukast Sodium [Singulair] 10 mg PO HS Ranolazine [Ranexa] 500 mg PO BID Isosorbide Mononitrate ER [Imdur] 60 mg PO DAILY traZODone HCL [Desyrel] 50 mg PO HS PRN #30 tab PRN Reason: Insomnia clonazePAM [KlonoPIN] 0.5 mg PO DAILY dilTIAZem HCL [Tiazac] 180 mg PO HS ARIPiprazole [Abilify] 15 mg PO HS Atorvastatin [Lipitor] 80 mg PO HS 30 Days #30 tab Clobetasol Propionate [Temovate 0.05% Oint] 1 applic TOPICAL BID Insulin Aspart [NovoLOG Flexpen] See Protocol SQ TID-W/MEALS Apixaban [Eliquis] 5 mg PO BID Insulin Degludec [Tresiba Flextouch U-100 Pen] 44 units SQ DAILY Insulin Aspart [NovoLOG Flexpen] 17 units SQ TID-W/MEALS [place] Carbonate 300 mg PO BID Aspirin 325 mg PO DAILY tab Semaglutide [Ozempic] 0.5 mg SQ TU Prolia (Unknown Dose) 1 dose SQ Q180D Discharge Medication List Apixaban [Eliquis] 5 mg PO BID 11/15/22 [History] Insulin Aspart [NovoLOG Flexpen] See Protocol SQ TID-W/MEALS 11/15/22 [History] Montelukast Sodium [Singulair] 10 mg PO HS 11/15/22 [History] Ranolazine [Ranexa] 500 mg PO BID 11/28/23 [History] Isosorbide Mononitrate ER [Imdur] 60 mg PO DAILY 12/19/23 [History] traZODone HCL [Desyrel] 50 mg PO HS PRN #30 tab 12/20/23 [Rx] Insulin Degludec [Tresiba Flextouch U-100 Pen] 44 units SQ DAILY 03/15/24 [History] Insulin Aspart [NovoLOG Flexpen] 17 units SQ TID-W/MEALS 06/06/24 [History] [place] Carbonate 300 mg PO BID 08/25/24 [History] clonazePAM [KlonoPIN] 0.5 mg PO DAILY 08/25/24 [History] dilTIAZem HCL [Tiazac] 180 mg PO HS 08/25/24 [History] ARIPiprazole [Abilify] 15 mg PO HS 03/26/25 [History] Aspirin 325 mg PO DAILY tab 03/29/25 [Rx] Atorvastatin [Lipitor] 80 mg PO HS 30 Days #30 tab 03/29/25 [Rx] Clobetasol Propionate [Temovate 0.05% Oint] 1 applic TOPICAL BID 05/31/25 [History] Prolia (Unknown Dose) 1 dose SQ Q180D 05/31/25 [History] Semaglutide [Ozempic] 0.5 mg SQ TU 05/31/25 [History] Follow up Appointment(s)/Referral(s): Saleem Loera MD [STAFF PHYSICIAN] - 1 Week Abby Santiago NPC [REFERRING] - 1-2 days Activity/Diet/Wound Care/Special Instructions: Follow up with cardiology in the office on discharge Continue imdur and ranexa Discharge Disposition: HOME SELF-CARE
== END 2025-05-31 15:31 | disposition home or self-care (01) ==
LOC: EC 19:39 → 3SCARD 05-31 00:15 → 6NMEDSUR 05-31 13:44
PROVIDERS: ADMIT Hospitalist; ATTEND Hospitalist
DX: R07.89 Other chest pain (principal); E11.649 Type 2 diabetes mellitus with hypoglycemia without coma; I48.0 Paroxysmal atrial fibrillation; I10 Essential (primary) hypertension; M81.0 Age-related osteoporosis without current pathological fracture; E78.5 Hyperlipidemia, unspecified; J45.909 Unspecified asthma, uncomplicated; M79.7 Fibromyalgia; E66.01 Morbid (severe) obesity due to excess calories; Z68.39 Body mass index [BMI] 39.0-39.9, adult; I20.9 Angina pectoris, unspecified; I25.2 Old myocardial infarction; F31.9 Bipolar disorder, unspecified; Z79.01 Long term (current) use of anticoagulants; Z79.4 Long term (current) use of insulin; Z79.82 Long term (current) use of aspirin; Z79.51 Long term (current) use of inhaled steroids; Z79.899 Other long term (current) drug therapy; Z88.1 Allergy status to other antibiotic agents; Z88.8 Allergy status to other drugs, medicaments and biological substances; Z91.048 Other nonmedicinal substance allergy status; Z86.73 Personal history of transient ischemic attack (TIA), and cerebral infarction without residual deficits; Z87.310 Personal history of (healed) osteoporosis fracture
CPT/HCPCS: 96376; 96361; 96374; 96375; 99285; 36415 ×2; 93005; 93306; 80053; 82150; 83690; 83735; 84484 ×2; 85025; 85610; 85730; 71046; G0378 ×2; J2270; J2405

== ENCOUNTER 2025-06-05 10:58 | Observation (INO) | payer MEDICARE ==
[2025-06-05] MEDS: LORazepam 1 MG/0.5 ML VIAL IV STA (11:53)
[2025-06-05 11:55] LABS: Basophils # (A) 0.04 10*3/uL (0.00-0.10); Basophils % (A) 0.5 %; Eosinophils # (A) 0.08 10*3/uL (0.04-0.35); Eosinophils % (A) 1.1 %; HCT 45.1 % (37.2-46.3); HGB 15.2 g/dL (12.0-15.0); Lymphocytes # (A) 1.51 10*3/uL (0.90-5.00); Lymphocytes % (A) 20.0 %; MCH 30.2 pg (27.0-32.0); MCHC 33.7 g/dL (32.0-37.0); MCV 89.7 fL (80.0-97.0); Monocytes # (A) 0.37 10*3/uL (0.20-1.00); Monocytes % (A) 4.9 %; Neutrophils # (A) 5.55 10*3/uL (1.80-7.70); Neutrophils % (A) 73.4 %; Platelet Count 251 10*3/uL (140-440); RBC 5.03 10*6/uL (4.10-5.20); RDW 12.4 % (11.5-14.5); WBC 7.56 10*3/uL (4.50-10.00)
[2025-06-05 12:06] LABS: INR 1.0 (<1.2); Partial Thromboplastin Time 29.1 sec (22.0-30.0); Prothrombin Time 10.9 sec (10.0-12.5)
--- NOTE | 2025-06-05 12:16 | XR ---
EXAMINATION TYPE: XR chest 2V DATE OF EXAM: 06/05/2025 12:11 PM COMPARISON: 05/30/2025 CLINICAL INDICATION: Female, 55 years old with history of Chest Pain, , TECHNIQUE: PA and lateral views FINDINGS: The cardiomediastinal silhouette, aorta, and pulmonary vasculature are within normal limits. Lungs an d pleural spaces are clear. IMPRESSION: No acute cardiopulmonary process. [facility], Workstation: [id number], 06/05/2025 12:13 PM
--- NOTE | 2025-06-05 12:18 | ED ---
Chest Pain HPI - General Chief Complaint: Chest Pain Stated Complaint: Chest pain,L arm numbness Time Seen by Provider: 06/05/25 11:14 Source: patient, RN notes reviewed Mode of arrival: ambulatory Limitations: no limitations - History of Present Illness Initial Comments: 55-year-old female presents emerged from chief complaint chest pain. Patient states she had recent hospitalization for chest pain states that they discussed possible cardiac catheter stress test but they ended up discharging her. Patient states that she has been trying to follow-up with her letter carrier Dr. Ken but has unable to. Patient was contacted by PCP advised to come back to the emergency department. Patient states she has no prior cardiac stents but states that she had prior MD. She states she has been anxious since having left arm numbness. No focal weakness. - Related Data Home Medications Medication Instructions Recorded Confirmed Apixaban [Eliquis] 5 mg PO BID 11/15/22 05/31/25 Insulin Aspart [NovoLOG Flexpen] See Protocol SQ TID-W/MEALS 11/15/22 05/31/25 Montelukast Sodium [Singulair] 10 mg PO HS 11/15/22 05/31/25 Ranolazine [Ranexa] 500 mg PO BID 11/28/23 05/31/25 Isosorbide Mononitrate ER [Imdur] 60 mg PO DAILY 12/19/23 05/31/25 Insulin Degludec [Tresiba 44 units SQ DAILY 03/15/24 05/31/25 Flextouch U-100 Pen] Insulin Aspart [NovoLOG Flexpen] 17 units SQ TID-W/MEALS 06/06/24 05/31/25 [place] Carbonate 300 mg PO BID 08/25/24 05/31/25 clonazePAM [KlonoPIN] 0.5 mg PO DAILY 08/25/24 05/31/25 dilTIAZem HCL [Tiazac] 180 mg PO HS 08/25/24 05/31/25 ARIPiprazole [Abilify] 15 mg PO HS 03/26/25 05/31/25 Clobetasol Propionate [Temovate 1 applic TOPICAL BID 05/31/25 05/31/25 0.05% Oint] Prolia (Unknown Dose) 1 dose SQ Q180D 05/31/25 05/31/25 Semaglutide [Ozempic] 0.5 mg SQ TU 05/31/25 05/31/25 Previous Rx's Medication Instructions Recorded traZODone HCL [Desyrel] 50 mg PO HS PRN #30 tab 12/20/23 Aspirin 325 mg PO DAILY tab 03/29/25 Atorvastatin [Lipitor] 80 mg PO HS 30 Days #30 tab 03/29/25 Allergies Allergy/AdvReac Type Severity Reaction Status Date / Time adhesive Allergy red skin - Verified 06/05/25 11:02 paper tape OK trimethobenzamide Allergy Rash/Hives Verified 06/05/25 11:02 [From Tigan] vancomycin Allergy Rash/Hives Verified 06/05/25 11:02 Review of Systems ROS Statement: Those systems with pertinent positive or pertinent negative responses have been documented in the HPI. ROS Other: All systems not noted in ROS Statement are negative. EKG Findings - EKG Comments: EKG Findings:: EKG performed at 11: 11 sinus rhythm rate 82 WI 139 QRS 96 QT/QTc 377/416 - EKG Results: EKG: interpreted by MANOLO Past Medical History Past Medical History: Asthma, Chest Pain / Angina, CVA/TIA, Diabetes Mellitus, Deep Vein Thrombosis (DVT), Fibromyalgia, GERD/Reflux, Hyperlipidemia, Hypertension, Liver Disease, Myocardial Infarction (MD), Pulmonary Embolus (PE) Additional Past Medical History / Comment(s): fibomyalgia, light weakness on left after stroke coming back. mild MD from EKG unknown time. blood in stools. non alcoholic fatty liver,, diverticulosis. Last Myocardial Infarction Date:: unk History of Any Multi-Drug Resistant Organisms: C-DIFF Date of last positivie culture/infection: 2019 MDRO Source:: stool Past Surgical History: Appendectomy, Cholecystectomy, Hysterectomy, Orthopedic Surgery, Tonsillectomy Additional Past Surgical History / Comment(s): left knee replaced. left rotator cuff repair . rt hip stretched bursa. colonoscopies, laproscopic surgery to remove abdominal adhesions, left femur sx Past Anesthesia/Blood Transfusion Reactions: Postoperative Nausea & Vomiting (PONV) Additional Past Anesthesia/Blood Transfusion Reaction / Comment(s): with lap procedure had a hard time waking up. Past Psychological History: Bipolar, Depression Smoking Status: Never smoker Past Alcohol Use History: Rare Past Drug Use History: None Reported - Past Family History Mother Family Medical History: Cancer Additional Family Medical History / Comment(s): uterine Father Family Medical History: Cancer Additional Family Medical History / Comment(s): lung General Exam Limitations: no limitations General appearance: alert, in no apparent distress Head exam: Present: atraumatic, normocephalic, normal inspection Eye exam: Present: normal appearance, PERRL, EOMI. Absent: scleral icterus, conjunctival injection, periorbital swelling ENT exam: Present: normal exam, normal oropharynx, mucous membranes moist Neck exam: Present: normal inspection, full ROM. Absent: tenderness, meningismus, lymphadenopathy Respiratory exam: Present: normal lung sounds bilaterally. Absent: respiratory distress, wheezes, rales, rhonchi, stridor Cardiovascular Exam: Present: regular rate, normal rhythm, normal heart sounds. Absent: systolic murmur, diastolic murmur, rubs, gallop, clicks GI/Abdominal exam: Present: soft, normal bowel sounds. Absent: distended, tenderness, guarding, rebound, rigid Neurological exam: Present: alert, oriented X3, CN II-XII intact, reflexes normal. Absent: motor sensory deficit Skin exam: Present: warm, dry, intact, normal color. Absent: rash Course Vital Signs 06/05/25 06/05/25 11:00 11:17 Temperature 98 F 97.6 F Pulse Rate 86 79 Respiratory 20 16 Rate Blood Pressure 129/81 140/63 O2 Sat by Pulse 99 96 Oximetry Chest Pain MDM - MDM Was pt. sent in by a medical professional or institution ([facility], ONLINE COMMUNICATIONS SPECIALIST, urgent care, hospital, or penitentiary...) When possible be specific @ -No Did you speak to anyone other than the patient for history (EMS, parent, family, police, friend...)? What history was obtained from this source @ -No Did you review nursing and triage notes (agree or disagree)? Why? @ -I reviewed and agree with nursing and triage notes Were old charts reviewed (outside hosp., previous admission, EMS record, old EKG, old radiological studies, urgent care reports/EKG's, penitentiary records)? Report findings @ -No old charts were reviewed Differential Diagnosis (chest pain, altered mental status, abdominal pain women, abdominal pain men, vaginal bleeding, weakness, fever, dyspnea, syncope, headache, dizziness, GI bleed, back pain, seizure, CVA, palpatations, mental health, musculoskeletal)? @Differential Chest Pain: Stable Angina, Unstable Angina, STEMI, NSTEMI Aortic Dissection, Pneumothorax, Musculoskeletal, Esophageal Spasm GERD, Cholecystitis, Pancreatitis, Zoster, this is not meant to be an all-inclusive list. EKG interpreted by me (3pts min.). @ -As above X-rays interpreted by me (1pt min.). @ -Chest x-ray shows no acute cardiopulmonary process. CT interpreted by me (1pt min.). @ -None done U/S interpreted by me (1pt. min.). @ -None done What testing was considered but not performed or refused? (CT, X-rays, U/S, labs)? Why? @ -None What meds were considered but not given or refused? Why? @ -None Did you discuss the management of the patient with other professionals (professionals i.e. , PA, ONLINE COMMUNICATIONS SPECIALIST, lab, RT, psych nurse, licensed clinical social worker, paediatric thoracic physician, teacher, public health service officer, showcase trimmer)? Give summary @ -EMH for admission Was smoking cessation discussed for >3mins.? @ -No Was critical care preformed (if so, how long)? @ -No Were there social determinants of health that impacted care today? How? (Homelessness, low income, unemployed, alcoholism, drug addiction, transportation, low edu. Level, literacy, decrease access to med. care, skilled nursing, rehab)? @ -No Was there de-escalation of care discussed even if they declined (Discuss DNR or withdrawal of care, Hospice)? DNR status @ -No What co-morbidities impacted this encounter? (DM, HTN, Smoking, COPD, CAD, Cancer, CVA, ARF, Chemo, Hep., AIDS, mental health diagnosis, sleep apnea, morbid obesity)? @ -None Was patient admitted / discharged? Hospital course, mention meds given and route, prescriptions, significant lab abnormalities, going to OR and other pertinent info. @ -Admitted patient been having ongoing chest pain had recent admission unable to follow-up sent back in by PCP for evaluation. Patient will be admitted for cardiac rule out. Undiagnosed new problem with uncertain prognosis? @ -No Drug Therapy requiring intensive monitoring for toxicity (Heparin, Nitro, Insulin, Cardizem)? @ -No Were any procedures done? @ -No Diagnosis/symptom? @ -Chest pain Acute, or Chronic, or Acute on Chronic? @ -Acute Uncomplicated (without systemic symptoms) or Complicated (systemic symptoms)? @ -Complicated Side effects of treatment? @ -No Exacerbation, Progression, or Severe Exacerbation? @ -No Poses a threat to life or bodily function? How? (Chest pain, [place], MD, pneumonia, PE, COPD, DKA, ARF, appy, cholecystitis, CVA, Diverticulitis, Homicidal, Suicidal, threat to staff... and all critical care pts) @ -Yes risk to cardiac function Disposition Clinical Impression: Chest pain Disposition: ADMITTED IP TO THIS HOSP Condition: Fair Referrals: Brayden Valdovinos DO [Primary Care Provider] - 1-2 days Time of Disposition: 12:56
[2025-06-05 12:26] LABS: ALT 36 U/L (4-34); AST 28 U/L (14-36); African American GFR (CKD) >90 (>60 ml/min/1.73 sqM); Albumin 4.3 g/dL (3.5-5.0); Alkaline Phosphatase 95 U/L (38-126); Anion Gap 12 mmol/L; Blood Urea Nitrogen 13 mg/dL (7-17); Calcium 9.8 mg/dL (8.4-10.2); Carbon Dioxide 24 mmol/L (22-30); Chloride 107 mmol/L (98-107); Glucose 99 mg/dL (74-99); Magnesium 1.9 mg/dL (1.6-2.3); Non-African American GFR(CKD) >90 (>60 ml/min/1.73 sqM); Potassium 4.2 mmol/L (3.5-5.1); Sodium 143 mmol/L (137-145); Total Protein 6.5 g/dL (6.3-8.2)
[2025-06-05] MEDS: ONDANSETRON 4 MG/2 ML VIAL IVP STA (13:53)
[2025-06-05] MEDS: KETOROLAC 15 MG/ML 1 ML VIAL IVP STA (13:56)
[2025-06-05] MEDS: NITROGLYCERIN SL TABS 0.4 MG TAB SUBLINGUAL PRN (16:14)
[2025-06-05 16:38] LABS: Glucose,Whole Blood 74 mg/dL (70-110)
[2025-06-05] MEDS: INSULIN LISPRO (HumaLOG) 100 UNIT/ML 10 mL VL SQ SCH (17:46)
[2025-06-05 20:09] VITALS: RESP 17
[2025-06-05] MEDS: MONTELUKAST 10 MG TAB PO SCH (20:24)
[2025-06-05] MEDS: RANOLAZINE 500 MG TAB.ER.12H PO SCH (20:24)
[2025-06-05] MEDS: APIXABAN 5 MG TAB PO SCH (20:24)
[2025-06-05] MEDS: DILTIAZEM CD 180 MG CAP.ER.24H PO SCH (20:24)
[2025-06-05] MEDS: ATORVASTATIN 80 MG TAB PO SCH (20:24)
[2025-06-05] MEDS: LITHIUM CARBONATE 300 MG CAP PO SCH (20:25)
[2025-06-05 20:28] LABS: Glucose,Whole Blood 91 mg/dL (70-110)
[2025-06-05] MEDS: ARIPiprazole 15 MG TAB PO SCH (21:09)
[2025-06-05] MEDS: ACETAMINOPHEN TAB 325 MG TAB PO PRN (22:54)
[2025-06-06 06:08] LABS: Glucose,Whole Blood 107 mg/dL (70-110)
[2025-06-06 10:36] LABS: Cholesterol 108.00 mg/dL (0.00-200.00); HDL Cholesterol 44.50 mg/dL (40.00-60.00); LDL Cholesterol,Calculated 45.5 mg/dL (0.0-131.0); Triglycerides 89.80 mg/dL (0.00-149.00); VLDL Calculation 17.96 mg/dL (5.00-40.00)
[2025-06-06] MEDS: ONDANSETRON 4 MG/2 ML VIAL IVP PRN (10:45)
[2025-06-06] MEDS: ISOSORBIDE MONONITRATE ER 60 MG TAB.ER.24H PO SCH (10:48)
[2025-06-06] MEDS: INSULIN GLARGINE (LANTUS) 100 UNIT/ML SYR SQ SCH (10:49)
[2025-06-06] MEDS: clonazePAM 0.5 MG TAB PO SCH (10:53)
--- NOTE | 2025-06-06 11:11 | P.CRDCN ---
History of Present Illness History of present illness: HISTORY OF PRESENT ILLNESS: This is a 55-year-old female with a past medical history significant for hypertension, hyperlipidemia, diabetes, obesity, and normal coronary arteries. Patient follows in the office with Dr. Loera. We have been asked to see the patient in consultation for chest pain. Patient examined at the bedside. Patient states she has been having chest pain for the past week. She states the pain is in the middle of her chest and goes underneath her left breast and into her back. She also reports having a headache. She states the pain is not worse with deep inspiration. She is a non-smoker. DIAGNOSTICS: - EKG reveals sinus mechanism with no signs of acute ischemia. - Chest xray negative for acute process. - Laboratory data: Troponin negative x 3 - Current home cardiac medications include Cardizem 180 mg at night, Lipitor 80 mg at night, Ranexa 500 mg twice a day, Imdur 60 mg daily, aspirin 325 mg daily, Eliquis 5 mg twice a day. - Most recent echocardiogram obtained in September 2023 revealing normal EF, mild MR - Cardiac catheterization history: November 2023 revealing normal coronary arteries REVIEW OF SYSTEMS: At the time of my exam: CONSTITUTIONAL: Denies fever or chills. HEENT: Denies blurred vision, vision changes, or eye pain. Denies hemoptysis CARDIOVASCULAR: Denies chest pain. Denies orthopnea. Denies PND. Denies palpitations RESPIRATORY: Denies shortness of breath. GASTROINTESTINAL: Denies abdominal pain. Denies nausea or vomiting. HEMATOLOGIC: Denies bleeding disorders. GENITOURINARY: Denies any blood in urine. SKIN: Denies pruitis. Denies rash. PHYSICAL EXAM: VITAL SIGNS: Reviewed. GENERAL: Well-developed in no acute distress. HEENT: Head is normocephalic. Pupils are equal, round. Sclerae anicteric. Mucous membranes of the mouth are moist. Neck supple. No JVD or thyromegaly LUNGS: Respirations even and unlabored. Lungs essentially clear to auscultation bilaterally. HEART: Regular rate and rhythm. S1 and S2 heard. ABDOMEN: Soft. Nondistended. Nontender. EXTREMITIES: Normal range of motion. No clubbing or cyanosis. Peripheral pulses intact. No lower extremity edema NEUROLOGIC: Awake and alert. Oriented x 3. ASSESSMENT: Chest pain Normal coronary arteries, per cath in November 2023 Hypertension Hyperlipidemia Diabetes Obesity: BMI 39.9 History of PE, on Eliquis PLAN: An acute coronary event has been ruled out Resume home cardiac medications Patient to undergo stress echo today If negative, she may be discharged home from a cardiac standpoint Nurse practitioner note has been reviewed by physician. Signing provider agrees with the documented findings, assessment, and plan of care documented by [employer] as a scribe. Past Medical History Past Medical History: Asthma, Chest Pain / Angina, CVA/TIA, Diabetes Mellitus, Deep Vein Thrombosis (DVT), Fibromyalgia, GERD/Reflux, Hyperlipidemia, Hypertension, Liver Disease, Myocardial Infarction ([place]), Pulmonary Embolus (PE) Additional Past Medical History / Comment(s): fibomyalgia, light weakness on left after stroke coming back. mild MS from EKG unknown time. blood in stools. non alcoholic fatty liver, diverticulosis. Last Myocardial Infarction Date:: unk History of Any Multi-Drug Resistant Organisms: C-DIFF Date of last positivie culture/infection: 2019 MDRO Source:: stool Past Surgical History: Appendectomy, Cholecystectomy, Hysterectomy, Orthopedic Surgery, Tonsillectomy Additional Past Surgical History / Comment(s): left knee replaced. left rotator cuff repair . rt hip stretched bursa. colonoscopies, laproscopic surgery to re move abdominal adhesions, left femur sx Past Anesthesia/Blood Transfusion Reactions: Postoperative Nausea & Vomiting (PONV) Additional Past Anesthesia/Blood Transfusion Reaction / Comment(s): with lap procedure had a hard time waking up. Smoking Status: Never smoker - Past Family History Mother Family Medical History: Cancer Additional Family Medical History / Comment(s): uterine Father Family Medical History: Cancer Additional Family Medical History / Comment(s): lung Medications and Allergies Home Medications Medication Instructions Recorded Confirmed Type Apixaban [Eliquis] 5 mg PO BID 11/15/22 06/05/25 History Insulin Aspart [NovoLOG Flexpen] See Protocol SQ TID-W/MEALS 11/15/22 06/05/25 History Montelukast Sodium [Singulair] 10 mg PO HS 11/15/22 06/05/25 History Ranolazine [Ranexa] 500 mg PO BID 11/28/23 06/05/25 History Isosorbide Mononitrate ER [Imdur] 60 mg PO DAILY 12/19/23 06/05/25 History traZODone HCL [Desyrel] 50 mg PO HS PRN #30 tab 12/20/23 06/05/25 Rx Insulin Degludec [Tresiba 44 units SQ DAILY 03/15/24 06/05/25 History Flextouch U-100 Pen] Insulin Aspart [NovoLOG Flexpen] 17 units SQ TID-W/MEALS 06/06/24 06/05/25 History [place] Carbonate 300 mg PO BID 08/25/24 06/05/25 History dilTIAZem HCL [Tiazac] 180 mg PO HS 08/25/24 06/05/25 History ARIPiprazole [Abilify] 15 mg PO HS 03/26/25 06/05/25 History Aspirin 325 mg PO DAILY tab 03/29/25 06/05/25 Rx Atorvastatin [Lipitor] 80 mg PO HS 30 Days #30 tab 03/29/25 06/05/25 Rx Clobetasol Propionate [Temovate 1 applic TOPICAL BID 05/31/25 06/05/25 History 0.05% Oint] Semaglutide [Ozempic] 0.5 mg SQ TU 05/31/25 06/05/25 History Denosumab [Prolia] 60 mg SQ Q180D 06/05/25 06/05/25 History Allergies Allergy/AdvReac Type Severity Reaction Status Date / Time adhesive Allergy red skin - Verified 06/05/25 14:11 paper tape OK trimethobenzamide Allergy Rash/Hives Verified 06/05/25 14:11 [From [facility]] vancomycin Allergy Rash/Hives Verified 06/05/25 14:11 Physical Exam Vitals: Vital Signs Temp Pulse Pulse Pulse Resp BP BP 06/06/25 09:28 97.7 F 66 126/76 06/06/25 08:12 98.0 F 63 124/60 06/06/25 02:00 97.8 F 72 17 151/77 06/05/25 20:00 98.5 F 68 17 147/70 06/05/25 15:30 78 16 139/60 06/05/25 15:00 97.4 F L 73 17 117/68 06/05/25 13:58 84 16 103/75 06/05/25 11:17 97.6 F 79 16 140/63 06/05/25 11:00 98 F 86 20 129/81 Pulse Ox 06/06/25 09:28 96 06/06/25 08:12 95 06/06/25 02:00 96 06/05/25 20:00 97 06/05/25 15:30 97 06/05/25 15:00 97 06/05/25 13:58 95 06/05/25 11:17 96 06/05/25 11:00 99 Intake and Output 06/05/25 06/06/25 06/06/25 22:59 06:59 14:59 Intake Total 200 Balance 200 Intake: Oral 200 Other: # Voids 2 1 Weight 108.862 kg Results 06/05/25 11:45 06/05/25 11:45 Cardiac Enzymes 06/05/25 06/05/25 06/05/25 Range/Units 11:45 11:45 13:04 AST 28 (14-36) U/L Troponin I <0.012 <0.012 (0.000-0.034) ng/mL 06/05/25 Range/Units 15:37 AST (14-36) U/L Troponin I <0.012 (0.000-0.034) ng/mL Coagulation 06/05/25 Range/Units 11:45 PT 10.9 (10.0-12.5) sec APTT 29.1 (22.0-30.0) sec CBC 06/05/25 Range/Units 11:45 WBC 7.56 (4.50-10.00) 10*3/uL RBC 5.03 (4.10-5.20) 10*6/uL Hgb 15.2 H (12.0-15.0) g/dL Hct 45.1 (37.2-46.3) % Plt Count 251 (140-440) 10*3/uL Comprehensive Metabolic Panel 06/05/25 Range/Units 11:45 Sodium 143 (137-145) mmol/L Potassium 4.2 (3.5-5.1) mmol/L Chloride 107 (98-107) mmol/L Carbon Dioxide 24 (22-30) mmol/L BUN 13 (7-17) mg/dL Creatinine 0.68 (0.52-1.04) mg/dL Glucose 99 (74-99) mg/dL Calcium 9.8 (8.4-10.2) mg/dL AST 28 (14-36) U/L ALT 36 H (4-34) U/L Alkaline Phosphatase 95 (38-126) U/L Total Protein 6.5 (6.3-8.2) g/dL Albumin 4.3 (3.5-5.0) g/dL Current Medications Generic Name Dose Route Start Last Admin Trade Name Freq PRN Reason Stop Dose Admin Acetaminophen 650 mg 06/05/25 22:41 06/06/25 05:36 Acetaminophen Tab 325 Mg Tab PO 650 mg Q4HR PRN Administration Fever and/ or Pain Apixaban 5 mg 06/05/25 21:00 06/05/25 20:24 Apixaban 5 Mg Tab PO 5 mg BID FRANCISCO JAVIER Administration Protocol Aripiprazole 15 mg 06/05/25 21:00 06/05/25 21:09 Aripiprazole 15 Mg Tab PO 15 mg HS FRANCISCO JAVIER Administration Atorvastatin Calcium 80 mg 06/05/25 21:00 06/05/25 20:24 Atorvastatin 80 Mg Tab PO 80 mg HS FRANCISCO JAVIER Administration Clonazepam 0.5 mg 06/06/25 09:00 Clonazepam 0.5 Mg Tab PO DAILY FRANCISCO JAVIER Diltiazem HCl 180 mg 06/05/25 21:00 06/05/25 20:24 Diltiazem Cd 180 Mg Cap.Er.24h PO 180 mg HS FRANCISCO JAVIER Administration Insulin Glargine 44 unit 06/06/25 09:00 Insulin Glargine (Lantus) 100 Unit/Ml Syr SQ DAILY [facility] Insulin Human Lispro 17 unit 06/05/25 17:30 06/06/25 06:27 Insulin Lispro (Humalog) 100 Unit/Ml 10 Ml Vl SQ Not Given TID-W/MEALS FRANCISCO JAVIER Isosorbide Mononitrate 60 mg 06/06/25 09:00 Isosorbide Mononitrate Er 60 Mg Tab.Er.24h PO DAILY FRANCISCO JAVIER [place] Carbonate 300 mg 06/05/25 21:00 06/05/25 20:25 [place] Carbonate 300 Mg Cap PO 300 mg BID FRANCISCO JAVIER Administration Montelukast Sodium 10 mg 06/05/25 21:00 06/05/25 20:24 Montelukast 10 Mg Tab PO 10 mg HS FRANCISCO JAVIER Administration Nitroglycerin 0.4 mg 06/05/25 12:56 06/06/25 05:37 Nitroglycerin Sl Tabs 0.4 Mg Tab SUBLINGUAL 0.4 mg Q5M PRN Administration Chest Pain Ondansetron HCl 4 mg 06/06/25 08:57 Ondansetron 4 Mg/2 Ml Vial IVP Q6HR PRN Nausea And Vomiting Ranolazine 500 mg 06/05/25 21:00 06/05/25 20:24 Ranolazine 500 Mg Tab.Er.12h PO 500 mg BID FRANCISCO JAVIER Administration Intake and Output 06/05/25 06/06/25 06/06/25 22:59 06:59 14:59 Intake Total 200 Balance 200 Intake: Oral 200 Other: # Voids 2 1 Weight 108.862 kg 06/05/25 11:45 06/05/25 11:45
--- NOTE | 2025-06-06 11:49 | CA ---
Stress Echo Report Aurora Tsai Age: 55 Gender: F : 1970 Exam Date: 06/06/2025 09:43 Exam Location: [place] Stress Ht (in): Wt (lb): Ordering Physician: Lizzette Mdeina Referring Physician: [id number] Limon [employer] Manager: MALLORY, Technologist Procedure CPT: Indication: CP ICD-9 Codes: Rhythm: Patient History: Chest pain, TATI, palpitations and several risk factors. Cardiac Medications: Medications in past 24 hours: Contrast: Definity Stress Results Protocol: Anup Total dose(mL): 2 Exercise Duration (min:sec): 4:[address] Depression (mm): Angina Score: Chiang Score: METS: 6.0 Resting HR: 66 Resting BP: 117 / 72 Peak HR: 149 Peak BP: 212 / 40 Max Predicted HR: 165 90 % Max Predicted HR Target HR: 140 Double Product: [id number] Stress Summary: Echo machine failed to archive the stress images. Patient refused to walk again. BP Response: Reason for Termination: MAX EXERTION/TARGET HR Cardiac Symptoms: LIGHTHEADED ECG Analysis Resting ECG: Stress ECG: Arrhythmia: Echo Analysis Resting Echo: Peak Echo Analysis: MEASUREMENTS (Male/Female) Normal Values CONCLUSIONS Average exercise tolerance Normal EKG in response to exercise Overall normal stress test Dr. Darryn Ha MD (Electronically Signed) Final Date: 06 June 2025 11:48
[2025-06-06 12:07] LABS: Glucose,Whole Blood 262 mg/dL (70-110)
[2025-06-06 14:35] VITALS: BP 153/74; PULSE 71; TEMP 97.9
--- NOTE | 2025-06-06 15:01 | P.DS ---
Providers Date of admission: 06/05/25 13:06 Attending physician: Abraham Negron MD Consults: 06/05/25 12:57 Consult Physician Urgent Consulting Provider: Saleem Loera Consult Reason/Comments: chest pain Do you want consulting provider notified?: Yes Primary care physician: Brayden Valdovinos [facility] Course: Discharge Diagnosis: Angina/atypical chest pain. Mood disorder History of present illness; 55-year-old female with a past medical history of hypertension, previous myocardial infarction, DVT/PE, hyperlipidemia, CVA x 3, diabetes mellitus, asthma, osteoporosis, fibromyalgia presents to the ED with complaints of persistent chest pain. Patient recently discharged from the hospital due to similar concerns however at the time all labs normal and acute coronary syndrome ruled out. Patient currently reports worsening of left-sided chest pain since last Tuesday. She reports pain is dull, constant, and 9/10 in severity. Patient reports pain radiating to her left shoulder with associated numbness and tingling of her left arm. Patient also reports associated nausea but denies vomiting. Patient also reports occasional lightheadedness that progressively worsened since last Tuesday. Patient denies bowel and urinary symptoms. Of note, patient is being followed up by Dr. Ken for chest pain as outpatient and is on aspirin 325 mg daily and apixaban 5 twice daily for previous CVAs at home. In the ED patient placed on nitroglycerin tablets and Tylenol for pain management. Lab work significant for serial troponin <0.012, hemoglobin 15.2, sodium 143, potassium 4.2. EKG obtained indicates sinus rhythm with incomplete right bundle branch block which new from her previous EKGs. During the course of her hospital stay, patient followed up with cardiology. A cardiac stress test was performed which showed normal EKG in response to exercise, effectively ruling out any acute coronary event. Patient cleared by cardiology for discharge. At time of discharge patient medically optimized and hemodynamically stable for discharge to home. Patient advised to follow-up with PCP and ring maker as outpatient. Patient seen and examined at bedside. Vital signs reviewed and stable. PHYSICAL EXAM: VITAL SIGNS: Reviewed. GENERAL: Well-developed in no acute distress. HEENT: Head is normocephalic. Pupils are equal, round. Sclerae anicteric. Mucous membranes of the mouth are moist. Neck supple. No JVD or thyromegaly LUNGS: Respirations even and unlabored. Lungs essentially clear to auscultation bilaterally. HEART: Regular rate and rhythm. S1 and S2 heard. ABDOMEN: Soft. Nondistended. Nontender. EXTREMITIES: Normal range of motion. No clubbing or cyanosis. Peripheral pulses intact. No lower extremity edema NEUROLOGIC: Awake and alert. Oriented x 3. A total of greater than 30 minutes of time were spent preparing this complex discharge summary. Patient was discharged on 06/06/2025. Patient Condition at Discharge: Fair Plan - Discharge Summary Discharge Rx Participant: No New Discharge Prescriptions: Continue Montelukast Sodium [Singulair] 10 mg PO HS Ranolazine [Ranexa] 500 mg PO BID Isosorbide Mononitrate ER [Imdur] 60 mg PO DAILY traZODone HCL [Desyrel] 50 mg PO HS PRN #30 tab PRN Reason: Insomnia dilTIAZem HCL [Tiazac] 180 mg PO HS ARIPiprazole [Abilify] 15 mg PO HS Atorvastatin [Lipitor] 80 mg PO HS 30 Days #30 tab Clobetasol Propionate [Temovate 0.05% Oint] 1 applic TOPICAL BID Insulin Aspart [NovoLOG Flexpen] See Protocol SQ TID-W/MEALS Apixaban [Eliquis] 5 mg PO BID Insulin Degludec [Tresiba Flextouch U-100 Pen] 44 units SQ DAILY Insulin Aspart [NovoLOG Flexpen] 17 units SQ TID-W/MEALS [place] Carbonate 300 mg PO BID Aspirin 325 mg PO DAILY tab Semaglutide [Ozempic] 0.5 mg SQ TU Denosumab [Prolia] 60 mg SQ Q180D Discharge Medication List Apixaban [Eliquis] 5 mg PO BID 11/15/22 [History] Insulin Aspart [NovoLOG Flexpen] See Protocol SQ TID-W/MEALS 11/15/22 [History] Montelukast Sodium [Singulair] 10 mg PO HS 11/15/22 [History] Ranolazine [Ranexa] 500 mg PO BID 11/28/23 [History] Isosorbide Mononitrate ER [Imdur] 60 mg PO DAILY 12/19/23 [History] traZODone HCL [Desyrel] 50 mg PO HS PRN #30 tab 12/20/23 [Rx] Insulin Degludec [Tresiba Flextouch U-100 Pen] 44 units SQ DAILY 03/15/24 [History] Insulin Aspart [NovoLOG Flexpen] 17 units SQ TID-W/MEALS 06/06/24 [History] [place] Carbonate 300 mg PO BID 08/25/24 [History] dilTIAZem HCL [Tiazac] 180 mg PO HS 08/25/24 [History] ARIPiprazole [Abilify] 15 mg PO HS 03/26/25 [History] Aspirin 325 mg PO DAILY tab 03/29/25 [Rx] Atorvastatin [Lipitor] 80 mg PO HS 30 Days #30 tab 03/29/25 [Rx] Clobetasol Propionate [Temovate 0.05% Oint] 1 applic TOPICAL BID 05/31/25 [History] Semaglutide [Ozempic] 0.5 mg SQ TU 05/31/25 [History] Denosumab [Prolia] 60 mg SQ Q180D 06/05/25 [History] Follow up Appointment(s)/Referral(s): Brayden Valdovinos DO [Primary Care Provider] - 1-2 days Patient Instructions/Handouts: Chest Pain (GEN) Discharge Disposition: HOME SELF-CARE
--- NOTE | 2025-06-06 16:06 | P.HPIM ---
History of Present Illness Chief Complaint: Chest pain History of present illness; 55-year-old female with a past medical history of hypertension, previous myocardial infarction, DVT/PE, hyperlipidemia, CVA x 3, diabetes mellitus, asthma, osteoporosis, fibromyalgia presents to the ED with complaints of persistent chest pain. Patient recently discharged from the hospital due to similar concerns however at the time all labs normal and acute coronary syndrome ruled out. Patient currently reports worsening of left-sided chest pain since last Tuesday. She reports pain is dull, constant, and 9/10 in severity. Patient reports pain radiating to her left shoulder with associated numbness and tingling of her left arm. Patient also reports associated nausea but denies vomiting. Patient also reports occasional lightheadedness that progressively worsened since last Tuesday. Patient denies bowel and urinary symptoms. Of note, patient is being followed up by Dr. Ken for chest pain as outpatient and is on aspirin 325 mg daily and apixaban 5 twice daily for previous CVAs at home. In the ED patient placed on nitroglycerin tablets and Tylenol for pain management. Lab work significant for serial troponin <0.012, hemoglobin 15.2, sodium 143, potassium 4.2. EKG obtained indicates sinus rhythm with incomplete right bundle branch block which new from her previous EKGs. REVIEW OF SYSTEMS: As stated above in HPI. The rest of the 14-point review of systems is negative. PHYSICAL EXAMINATION: GENERAL: The patient is alert and oriented x3, not in any acute distress. Well developed, well nourished. HEENT: Pupils are round and equally reacting to light. EOMI. No scleral icterus. No conjunctival pallor. Normocephalic, atraumatic. CARDIOVASCULAR: S1 and S2 present. PULMONARY: Chest is clear to auscultation b/l ABDOMEN: Localized tenderness on left upper quadrant. MUSCULOSKELETAL: No joint swelling or deformity. EXTREMITIES: No cyanosis, clubbing. trace pedal edema bilaterally. NEUROLOGICAL: Gross neurological examination did not reveal any focal deficits. SKIN: No rashes. Assessment and Plan #Angina/atypical chest pain #Paroxysmal atrial fibrillation anticoagulated with Eliquis Hypertension Pending cardiac evaluation - On cardiac telemetry Cardiac echo stress test Received nitroglycerin in ED Continue Eliquis 5 mg twice daily,ranolazine 500 mg twice daily, isosorbide mononitrate 60 mg OD, diltiazem 180 mg at bedtime Cardiology on consult, appreciate further recommendations Chronic conditions: #Type 2 diabetes mellitus Continue home dose insulin long-acting and short acting. #Mood disorder Continue continue home regimen. F: None E: None N: Heart healthy A: independently mobile DVT ppx: Apixaban CODE STATUS: Full Dictation was produced using [employer] dictation software. please excuse any grammatical, word or spelling errors. Chilango Alcala MD PGY1 Internal Medicine Past Medical History Past Medical History: Asthma, Chest Pain / Angina, CVA/TIA, Diabetes Mellitus, Deep Vein Thrombosis (DVT), Fibromyalgia, GERD/Reflux, Hyperlipidemia, Hypertension, Liver Disease, Myocardial Infarction (NV), Pulmonary Embolus (PE) Additional Past Medical History / Comment(s): fibomyalgia, light weakness on left after stroke coming back. mild NV from EKG unknown time. blood in stools. non alcoholic fatty liver, diverticulosis. Last Myocardial Infarction Date:: unk History of Any Multi-Drug Resistant Organisms: C-DIFF Date of last positivie culture/infection: 2019 MDRO Source:: stool Past Surgical History: Appendectomy, Cholecystectomy, Hysterectomy, Orthopedic Surgery, Tonsillectomy Additional Past Surgical History / Comment(s): left knee replaced. left rotator cuff repair . rt hip stretched bursa. colonoscopies, laproscopic surgery to remove abdominal adhesions, left femur sx Past Anesthesia/Blood Transfusion Reactions: Postoperative Nausea & Vomiting ( PONV) Additional Past Anesthesia/Blood Transfusion Reaction / Comment(s): with lap procedure had a hard time waking up. Smoking Status: Never smoker - Past Family History Mother Family Medical History: Cancer Additional Family Medical History / Comment(s): uterine Father Family Medical History: Cancer Additional Family Medical History / Comment(s): lung Medications and Allergies Home Medications Medication Instructions Recorded Confirmed Type Apixaban [Eliquis] 5 mg PO BID 11/15/22 06/05/25 History Insulin Aspart [NovoLOG Flexpen] See Protocol SQ TID-W/MEALS 11/15/22 06/05/25 History Montelukast Sodium [Singulair] 10 mg PO HS 11/15/22 06/05/25 History Ranolazine [Ranexa] 500 mg PO BID 11/28/23 06/05/25 History Isosorbide Mononitrate ER [Imdur] 60 mg PO DAILY 12/19/23 06/05/25 History traZODone HCL [Desyrel] 50 mg PO HS PRN #30 tab 12/20/23 06/05/25 Rx Insulin Degludec [Tresiba 44 units SQ DAILY 03/15/24 06/05/25 History Flextouch U-100 Pen] Insulin Aspart [NovoLOG Flexpen] 17 units SQ TID-W/MEALS 06/06/24 06/05/25 History [place] Carbonate 300 mg PO BID 08/25/24 06/05/25 History dilTIAZem HCL [Tiazac] 180 mg PO HS 08/25/24 06/05/25 History ARIPiprazole [Abilify] 15 mg PO HS 03/26/25 06/05/25 History Aspirin 325 mg PO DAILY tab 03/29/25 06/05/25 Rx Atorvastatin [Lipitor] 80 mg PO HS 30 Days #30 tab 03/29/25 06/05/25 Rx Clobetasol Propionate [Temovate 1 applic TOPICAL BID 05/31/25 06/05/25 History 0.05% Oint] Semaglutide [Ozempic] 0.5 mg SQ TU 05/31/25 06/05/25 History Denosumab [Prolia] 60 mg SQ Q180D 06/05/25 06/05/25 History Allergies Allergy/AdvReac Type Severity Reaction Status Date / Time adhesive Allergy red skin - Verified 06/05/25 14:11 paper tape OK trimethobenzamide Allergy Rash/Hives Verified 06/05/25 14:11 [From [facility]] vancomycin Allergy Rash/Hives Verified 06/05/25 14:11 Physical Exam Vitals: Vital Signs Temp Pulse Pulse Pulse Resp BP BP 06/06/25 08:12 98.0 F 63 124/60 06/06/25 02:00 97.8 F 72 17 151/77 06/05/25 20:00 98.5 F 68 17 147/70 06/05/25 15:30 78 16 139/60 06/05/25 15:00 97.4 F L 73 17 117/68 06/05/25 13:58 84 16 103/75 06/05/25 11:17 97.6 F 79 16 140/63 06/05/25 11:00 98 F 86 20 129/81 Pulse Ox 06/06/25 08:12 95 06/06/25 02:00 96 06/05/25 20:00 97 06/05/25 15:30 97 06/05/25 15:00 97 06/05/25 13:58 95 06/05/25 11:17 96 06/05/25 11:00 99 Intake and Output 06/05/25 06/06/25 06/06/25 22:59 06:59 14:59 Intake Total 200 Balance 200 Intake: Oral 200 Other: # Voids 2 1 Weight 108.862 kg Results CBC & Chem 7: 06/05/25 11:45 06/05/25 11:45 Labs: Abnormal Lab Results - Last 24 Hours (Table) 06/05/25 06/05/25 Range/Units 11:45 11:45 Hgb 15.2 H (12.0-15.0) g/dL MPV 9.4 L (9.5-12.2) fL ALT 36 H (4-34) U/L Thrombosis Risk Factor Assmnt - Choose All That Apply Any of the Below Risk Factors Present?: Yes Each Factor Represents 1 point: Age 41-60 years, Obesity (BMI >25) Other Risk Factors: No Other congenital or acquired thrombophilia - If yes, enter type in comment: No Thrombosis Risk Factor Assessment Total Risk Factor Score: 2 Thrombosis Risk Factor Assessment Level: Low Risk
== END 2025-06-06 15:44 | disposition home or self-care (01) ==
LOC: EC 10:58 → 1SOBS 13:06
PROVIDERS: ADMIT Internal Medicine; ATTEND Internal Medicine
DX: I20.9 Angina pectoris, unspecified (principal); I48.0 Paroxysmal atrial fibrillation; F39 Unspecified mood [affective] disorder; I10 Essential (primary) hypertension; M81.0 Age-related osteoporosis without current pathological fracture; E78.5 Hyperlipidemia, unspecified; M79.7 Fibromyalgia; M25.512 Pain in left shoulder; R20.2 Paresthesia of skin; I45.10 Unspecified right bundle-branch block; R11.0 Nausea; R42 Dizziness and giddiness; Z68.39 Body mass index [BMI] 39.0-39.9, adult; E66.9 Obesity, unspecified; I25.2 Old myocardial infarction; Z79.01 Long term (current) use of anticoagulants; Z79.4 Long term (current) use of insulin; Z79.85 Long-term (current) use of injectable non-insulin antidiabetic drugs; Z79.82 Long term (current) use of aspirin; Z79.899 Other long term (current) drug therapy; Z88.1 Allergy status to other antibiotic agents; Z88.8 Allergy status to other drugs, medicaments and biological substances; Z91.048 Other nonmedicinal substance allergy status; Z86.711 Personal history of pulmonary embolism; Z86.718 Personal history of other venous thrombosis and embolism; Z86.73 Personal history of transient ischemic attack (TIA), and cerebral infarction without residual deficits
CPT/HCPCS: 96376; 96374; 96375; 99285; 36415; 93005; 93351; 80061; 80053; 83735; 84484; 85025; 85610; 85730; 71046; G0378 ×2; J2060; J2405 ×2; Q9957; J1885